=== PATIENT | female | born 1990 ===

== ENCOUNTER 2020-12-18 16:09 | Emergency (ER) | payer OTHER, SELFPAY ==
--- NOTE | ~2020-12-18 | CT_ITS ---
EXAMINATION: CT ABDOMEN AND PELVIS WITH CONTRAST CLINICAL INFORMATION: Low back pain. Fever. COMPARISON: CT scan pelvis September 11, 2018 TECHNIQUE: Multidetector volumetric images were obtained from the superior aspect of the liver through the pubic symphysis following administration of 100 mL of Omnipaque 350 intravenous contrast. Sagittal and coronal reformatted images were obtained on the technologist's workstation. Oral contrast: No This CT examination was performed using dose optimization techniques as appropriate, variously including the following: *Automated exposure control *Adjustment of mA and/or kV according to patient size (this includes techniques or standardized protocols for targeted exams where dose is matched to indication/reason for exam; i.e. extremities or head) *Use of iterative reconstruction technique DLP: 893 mGy-cm FINDINGS: LUNG BASES: The visualized lung bases are unremarkable. LIVER, GALLBLADDER, AND BILIARY TREE: The liver is normal in size, shape, and attenuation. No focal hepatic lesion or biliary ductal dilatation is present. Status post cholecystectomy. PANCREAS: Unremarkable. SPLEEN: Unremarkable. ADRENAL GLANDS: Unremarkable. KIDNEYS AND URETERS: The kidneys are normal in size, shape, and attenuation. No hydronephrosis, hydroureter, or calculi seen. No perinephric stranding. BLADDER: Unremarkable. GASTROINTESTINAL TRACT: Gastric stimulator device in place. Generator in the subcutaneous tissue of the left side of abdomen. No acute abnormality. No diverticula. There is no bowel wall thickening /edema. There is no bowel obstruction. There is a moderate volume of stool in the colon. The appendix is normal . The small bowel loops are unremarkable. ABDOMINAL WALL: No significant hernia is appreciated. LYMPH NODES: Normal. VASCULAR: Unremarkable. PELVIC VISCERA: Unremarkable. OSSEOUS STRUCTURES: Unremarkable. CT/CT abdomen pelvis w con IMPRESSION: No acute abnormality the abdomen or the pelvis.
--- NOTE | ~2020-12-18 | US_ITS ---
EXAMINATION: US PELVIS CLINICAL INFORMATION: Pelvic pain. Low back pain. COMPARISON: Portions of CT 09/11/18 TECHNIQUE: Ultrasound of the pelvis is performed using both transabdominal and transvaginal transducers along with Doppler. Transvaginal imaging is performed due to inadequate visualization transabdominally. FINDINGS: Uterus: The uterus is anteverted and measures 7.0 x 3.4 x 5.5 cm. The estimated cervical length is 3.4 cm. There is a small cyst. The double wall endometrial thickness is 6 mm. The uterine contour is smooth. There is an approximately 0.9 cm round area of altered echotexture in the posterior uterine body. Statistically this is most likely a small fibroid. No other suspicious myometrial abnormality Adnexa: Both ovaries are visualized. The ovaries are prominent The ovaries were enlarged at the time of previous CT 09/11/18. Right ovary measures 4.1 x 3.4 x 3.6 cm. The estimated right ovarian volume is 26 mL. The right ovary appears prominent with some small anechoic spaces. No large suspicious right ovarian mass some of the follicular cysts are peripherally oriented which can be seen with polycystic ovaries Left ovary measures 3.9 x 3.2 x 2.9 cm. The estimated left ovarian volume is 19 mL. There are some physiologic cysts. No large suspicious focal lesion Color mapping and spectral analysis was performed in each ovary. There is color signal present within each ovary. Arterial and venous waveforms were obtained from each ovary. No free pelvic fluid. US/US pelvic and transvaginal IMPRESSION: Bilateral ovarian prominence. This could be related to polycystic ovaries. No suspicious discrete mass. There is color signal present within each ovary. Arterial and vascular spectra were obtained with Doppler analysis of each ovary.
[2020-12-18 16:24] VITALS: BP 149/87; PULSE 120; RESP 18; TEMP 36.3; O2SAT 99; BMI 40.3
[2020-12-18 18:00] VITALS: TEMP 38.3
--- NOTE | 2020-12-18 18:04 | ED.FEMALEGU ---
HPI - Female Genitourinary General Chief complaint: Urogenital-Female Stated complaint: Pelvic flank pain Time Seen by Provider: 12/18/20 17:49 Source: patient History of Present Illness HPI Narrative: This is a 30-year-old female who complains of pain that began in her lower back this morning and has spread to her pelvis on both sides. The pain has been progressive. She denies any fever. She has had nausea but no vomiting. She has had prior UTIs in her UTIs typically do not have classic UTI symptoms however she does not feel like this is the UTI. She said her urine has been clear. She denies any dysuria or urinary frequency. She has irregular menstrual periods, has been on control pills. She states she previously had been going through fertility treatment but has not in the last 2 months had any hormonal stimulation or IVF or anything else along those lines. She denies any respiratory symptoms such as cough or shortness of breath. She does have history of polycystic ovary syndrome. Related Data Previous Rx's Medication Instructions Recorded ibuprofen 800 mg tablet 800 mg PO Q8H PRN #30 tab 12/18/20 Allergies Allergy/AdvReac Type Severity Reaction Status Date / Time metoclopramide [From REGLAN] Allergy Unknown UNKNOWN Unverified 12/18/19 19:13 Review of Systems Review of Systems: Yes all other systems are reviewed and are negative Constitutional: Constitutional: Reports as per HPI and Denies fever(s) Eyes: Eyes: Reports as per HPI and Reports no additional eye complaints ENT: Reports system reviewed and no additional complaints, except as documented, Reports as per HPI, Denies nasal congestion, Denies nasal discharge and Denies sore throat Cardiovascular: Cardiovascular: Reports as per HPI, Denies chest pain and Denies dyspnea Respiratory: Respiratory: Reports as per HPI, Denies cough and Denies dyspnea Gastrointestinal: Gastrointestinal: Reports as per HPI, Reports abdominal pain (Pelvic pain), Denies diarrhea and Denies vomiting Genitourinary: Genitourinary: Reports as per HPI, Denies hematuria, Denies urinary frequency and Denies dysuria Musculoskeletal: Musculoskeletal: Reports back pain (Low back) and Denies numbness Integumentary/Breasts: Skin/Breast: Reports as per HPI and Denies rash Neurologic: Reports as per HPI, Denies focal weakness, Denies numbness and Denies Sensory deficit (Neuro) Psychiatric: Psychiatric: Reports no additional psychiatric complaints and Reports as per HPI Endocrine: Endocrine: Reports no additional endocrine complaints and Reports as per HPI Hematologic/Lymphatic: Hematologic/Lymphatic: Reports no additional hematologic/lymphatic complaints, Reports as per HPI and Reports other (No peripheral edema) [facility] Social History Social History Advance Directives: No Advance Directives Information Provided: No Physical Exam Vital Signs: Vital Signs: Last Vital Signs Temp 99.7 F 12/18/20 23:48 Pulse 117 H 12/18/20 23:50 Resp 16 12/18/20 23:50 BP 117/78 12/18/20 23:50 Pulse Ox 96 12/18/20 22:07 Body Mass Index 40.3 Patient somewhat anxious appearing, appears to be uncomfortable Const: General: cooperative, no acute distress and alert Orientation/consciousness: patient oriented x3 HENMT: Head: Yes normal to inspection Eyes: General: appearance normal, both eyes and all related structures Eyelids: Yes eyelids normal Conjunctivae: conjunctivae normal Pupils: Equal, round and reactive pupils present Neck: Neck: Yes normal visual inspection and Yes supple Chest: Chest palpation & inspection: normal inspection of the chest Resp: Effort & Inspection: normal respiratory effort Auscultation: clear to auscultation bilaterally Cardio: Rate: tachycardic Rhythm: regular rhythm Heart sounds: S1 normal heart sound present, S2 normal heart sound present, no gallops, no murmurs and no rubs GI: Other: Moderately obese, with significant overhanging pannus, no palpable enlarged uterus, bilateral pelvic tenderness present. Palpation (GI): Soft to palpation, nontender and Other GI palpation findings present (Non-distended) Auscultation: normal bowel sounds : General: Yes CVA tenderness (Bilateral. Tenderness seems possibly exaggerated) Back/Spine/Pelvis: Back: CVA tenderness (Bilateral. Tenderness seems possibly exaggerated) Skin: General skin exam: no rashes or lesions noted Neuro: General: patient oriented x3, no focal motor deficits and CN's II-XI intact bilaterally Cranial nerves: Yes Equal, round and reactive pupils present Cognition (Neuro): normal cognition Motor exam (neuro): 5/5 motor strength present throughout Sensory Exam: No Sensory deficit (Neuro) Extrem: General: Yes normal to inspection and Yes no pedal edema Psych: Appearance: grossly normal Affect: normal affect MDM - Female Genitourinary MDM Narrative Medical decision making narrative: Patient presented with severe lower back pain bilaterally radiating around to her front, but starting in the back. Patient did have a fever to 101 here. Patient had history of UTI however her urinalysis showed only trace leukocyte Estrace and otherwise no evidence of UTI. Urine culture was sent. Patient's white blood cell count was normal. Ultrasound of the pelvis showed no acute pathology such as ruptured ovarian cyst or ovarian torsion. Because the patient's level of pain or fever CT of the abdomen pelvis was done with IV contrast and this was also negative for any concerning acute pathology. Patient had no upper abdominal tenderness. COVID was negative. Is unclear what the source of this patient's fever is, however she appears safe for outpatient follow-up Lab Data Attestation: I reviewed the patient's lab results. Result diagrams: 12/18/20 18:10 12/18/20 18:10 Labs: Lab Results 12/18/20 12/18/20 12/18/20 Range/Units 18:10 18:10 18:10 WBC 9.8 (4.8-10.8) X10*3/uL RBC 5.27 (4.20-5.50) X10*6/uL Hgb 14.9 (12.0-16.0) g/dl Hct 42.9 (37-47) % MCV 81.4 (80-98) fL MCH 28.3 (27.0-33.0) pg MCHC 34.7 (31.0-35.0) g/dl RDW 12.9 (11.0-16.0) % Plt Count 363 (160-400) X10*3/uL MPV 8.4 L (9.4-12.3) fL Immature Gran % (Auto) 0.8 H (0.0-0.4) % Neut % (Auto) 81.0 H (45-73) % Lymph % (Auto) 10.2 L (20-40) % [place] % (Auto) 6.0 (2-11) % Eos % (Auto) 1.6 (0-4) % Baso % (Auto) 0.4 (0-2) % Lymph # (Auto) 1.0 L (1.2-4.9) X10*3/uL [place] # (Auto) 0.6 (0.1-1.2) X10*3/uL Eos # (Auto) 0.2 (0.0-0.4) X10*3/uL Baso # (Auto) 0.0 (0.0-0.2) X10*3/uL Abs Immat Gran (auto) 0.08 H (0.00-0.03) X10*3/uL Absolute Neuts (auto) 7.9 (2.0-8.3) X10*3/uL Absolute Nucleated RBC 0.000 (0.0-0.012) X10*3/uL Nucleated RBC % (auto) 0.0 (0.0-0.2) /100WBC Sodium 137 (135-145) mmol/L Potassium 4.0 (3.3-5.1) mmol/L Chloride 104 (96-108) mmol/L Carbon Dioxide 23 (22-29) mmol/L Anion Gap 14 (12-20) BUN 9 (9-16) mg/dL Creatinine 0.83 (0.5-1.4) mg/dL Estim Creat Clear Calc 115.9 Estimated GFR > 60 Random Glucose 78 (60-115) mg/dL Calcium 9.6 (8.4-10.2) mg/dL Total Bilirubin 0.3 (0.0-1.0) mg/dL AST 26 (5-31) U/L ALT 30 (0-31) U/L Alkaline Phosphatase 95 (39-117) U/L Total Protein 8.3 H (6.5-8.0) g/dL Albumin 4.8 (3.5-5.0) g/dL Beta HCG, Quant < 2 mIU/mL Urine Color YELLOW Urine Appearance CLEAR Urine pH 7.0 (5.0-8.0) Ur Specific [place] 1.010 (1.005-1.025) Urine Protein NEG (NEG-TRACE) MG/DL Urine Glucose (UA) NEG (NEG) MG/DL Urine Ketones NEG (NEG) MG/DL Urine Blood NEG (NEG) Urine Nitrite NEG (NEG) Ur Leukocyte Esterase TRACE H (NEG) Urine RBC 1-4 (0) /HPF Urine WBC 1-4 (0-4) /HPF Ur Squamous Epith Cells 1+ /LPF Urine Bacteria TRACE /LPF COVID-19 (BELEM) (Negative) COVID-19 Clin Com 12/18/20 Range/Units 22:05 WBC (4.8-10.8) X10*3/uL RBC (4.20-5.50) X10*6/uL Hgb (12.0-16.0) g/dl Hct (37-47) % MCV (80-98) fL MCH (27.0-33.0) pg MCHC (31.0-35.0) g/dl RDW (11.0-16.0) % Plt Count (160-400) X10*3/uL MPV (9.4-12.3) fL Immature Gran % (Auto) (0.0-0.4) % Neut % (Auto) (45-73) % Lymph % (Auto) (20-40) % [place] % (Auto) (2-11) % Eos % (Auto) (0-4) % Baso % (Auto) (0-2) % Lymph # (Auto) (1.2-4.9) X10*3/uL [place] # (Auto) (0.1-1.2) X10*3/uL Eos # (Auto) (0.0-0.4) X10*3/uL Baso # (Auto) (0.0-0.2) X10*3/uL Abs Immat Gran (auto) (0.00-0.03) X10*3/uL Absolute Neuts (auto) (2.0-8.3) X10*3/uL Absolute Nucleated RBC (0.0-0.012) X10*3/uL Nucleated RBC % (auto) (0.0-0.2) /100WBC Sodium (135-145) mmol/L Potassium (3.3-5.1) mmol/L Chloride (96-108) mmol/L Carbon Dioxide (22-29) mmol/L Anion Gap (12-20) BUN (9-16) mg/dL Creatinine (0.5-1.4) mg/dL Estim Creat Clear Calc Estimated GFR Random Glucose (60-115) mg/dL Calcium (8.4-10.2) mg/dL Total Bilirubin (0.0-1.0) mg/dL AST (5-31) U/L ALT (0-31) U/L Alkaline Phosphatase (39-117) U/L Total Protein (6.5-8.0) g/dL Albumin (3.5-5.0) g/dL Beta HCG, Quant mIU/mL Urine Color Urine Appearance Urine pH (5.0-8.0) Ur Specific [place] (1.005-1.025) Urine Protein (NEG-TRACE) MG/DL Urine Glucose (UA) (NEG) MG/DL Urine Ketones (NEG) MG/DL Urine Blood (NEG) Urine Nitrite (NEG) Ur Leukocyte Esterase (NEG) Urine RBC (0) /HPF Urine WBC (0-4) /HPF Ur Squamous Epith Cells /LPF Urine Bacteria /LPF COVID-19 (BELEM) Negative (Negative) COVID-19 Clin Com See Note Imaging Data Ultrasound pelvis: Radiologist's impression: MPRESSION: Bilateral ovarian prominence. This could be related to polycystic ovaries. No suspicious discrete mass. ? There is color signal present within each ovary. ? Arterial and vascular spectra were obtained with Doppler analysis of each ovary. CT of the abdomen pelvis: Radiologist's impression: No acute pathology Discharge Plan Discharge Clinical Impression: Fever, Low back pain Patient Disposition: Home, Self-Care Instructions: Fever in Adults (ED), Acute Low Back Pain (ED) Additional Instructions: Drink plenty of fluids. Use acetaminophen 650 mg every 4-6 hours as needed for fever. You can also use ibuprofen as prescribed for pain and fever. Follow up with primary care physician. Return for any new or worsened symptoms such as recurrent fever, vomiting, progressive abdominal pain. Will notify you if your urine culture is positive Prescriptions: New ibuprofen 800 mg tablet 800 mg PO Q8H PRN (Reason: pain) Qty: 30 RF: 0 Interventions: ED Discharge Assessment Last Done: 12/19/20 00:22 Discharge Date/Time: 12/19/20 00:23
[2020-12-18 18:16] LABS: MANUAL DIFF FLAG NO
[2020-12-18] MEDS: Morphine Sulfate 4 MG/ML CARTRIDGE IVPUSH (18:17)
[2020-12-18 18:18] LABS: Basophils Percent Auto 0.4 % (0-2); Eosinophils Absolute Auto 0.2 X10*3/uL (0.0-0.4); Eosinophils Percent Auto 1.6 % (0-4); Hematocrit 42.9 % (37-47); Hemoglobin 14.9 g/dl (12.0-16.0); Imm Gran Abs Auto 0.08 X10*3/uL (0.00-0.03); Imm Gran Pct Auto 0.8 % (0.0-0.4); Lymphocytes Percent Auto 10.2 % (20-40); Mean Corpuscular HGB Conc 34.7 g/dl (31.0-35.0); Mean Corpuscular Hemoglobin 28.3 pg (27.0-33.0); Mean Corpuscular Volume 81.4 fL (80-98); Mean Platelet Volume 8.4 fL (9.4-12.3); Monocytes Absolute Auto 0.6 X10*3/uL (0.1-1.2); Neutrophils Absolute Auto 7.9 X10*3/uL (2.0-8.3); Platelet Count 363 X10*3/uL (160-400); Red Blood Count 5.27 X10*6/uL (4.20-5.50); Red Cell Distribution Width 12.9 % (11.0-16.0); White Blood Count 9.8 X10*3/uL (4.8-10.8)
[2020-12-18] MEDS: ondansetron HCL 4 MG/2 ML VIAL IVPUSH (18:18)
[2020-12-18 18:19] LABS: Appearance Urine CLEAR; Color Urine YELLOW; Glucose Urine UA NEG (NEG); Leukocyte Esterase Urine TRACE (NEG); Nitrite Urine NEG (NEG); UACC Culture Trigger YES; Urine Blood NEG (NEG); Urine Ketones NEG (NEG); Urine Protein NEG (NEG-TRACE)
[2020-12-18 18:28] LABS: Bacteria Urine TRACE /LPF; Squamous Epithelial Cell Urine 1+ /LPF
[2020-12-18 18:34] LABS: Alanine Aminotransferase 30 U/L (0-31); Albumin Level 4.8 g/dL (3.5-5.0); Alkaline Phosphatase 95 U/L (39-117); Anion Gap 14 (12-20); Aspartate Amino Transferase 26 U/L (5-31); Bilirubin Total 0.3 mg/dL (0.0-1.0); Blood Urea Nitrogen 9 mg/dL (9-16); Calcium 9.6 mg/dL (8.4-10.2); Carbon Dioxide 23 mmol/L (22-29); Chloride 104 mmol/L (96-108); Creatinine Clr Calc Pharmacy 115.9; Estimated Glomerular Filt Rate > 60; Glucose Random 78 mg/dL (60-115); Sodium 137 mmol/L (135-145); Total Protein 8.3 g/dL (6.5-8.0)
[2020-12-18 18:40] LABS: HCG Quantitative < 2 mIU/mL
[2020-12-18] MEDS: Acetaminophen 325 MG TABLET 650 MG PO (20:25)
[2020-12-18 22:07] VITALS: BP 102/58; PULSE 121; RESP 18; TEMP 37.9; O2SAT 96
[2020-12-18 22:23] LABS: COVID-19 Test Negative (Negative)
[2020-12-18] MEDS: iohexoL 350 MG/ML 100 ML INFUS..BTL IV (22:49)
[2020-12-18 23:48] VITALS: BP 117/78; PULSE 117; RESP 16; TEMP 37.6
[2020-12-18 23:50] VITALS: BP 117/78; PULSE 117; RESP 16
[2020-12-18] MEDS: Ketorolac Tromethamine 15 MG/ML VIAL 30 MG IVPUSH (23:58)
== END 2020-12-19 00:23 | disposition home or self-care (01) ==
PROVIDERS: Emergency Provider Emergency Medicine; PCP Internal Medicine
DX: R50.9 Fever, unspecified (principal); M54.2 Cervicalgia; R10.9 Unspecified abdominal pain; Z20.822 Contact with and (suspected) exposure to COVID-19; Z79.899 Other long term (current) drug therapy
CPT/HCPCS: 36415; 74177; 76830; 76856; 80053; 81001; 84702; 85025; 87086; 87635; 96374; 96375; 99284; J1885; J2270; J2405; Q9967

== ENCOUNTER → 2024-01-31 09:18 | Outpatient (BNVA) | payer BC, SELFPAY | PROVIDERS: PCP Internal Medicine; Visit Provider Physician Assistant Surgical ==

== ENCOUNTER 2024-02-15 07:58 | Outpatient (AMB) | payer BC, SELFPAY ==
--- NOTE | 2024-02-15 10:14 | A.OFFVIS_ITS ---
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 Allergies metoclopramide [From REGLAN] Allergy (Unknown, Verified 02/15/24 10:14) UNKNOWN Medication List - Last Reconciled 02/15/24 by Trent Muñoz MD albuterol sulfate 90 mcg/actuation 2 puffs inhalation Q6H PRN cholecalciferol (vitamin D3) 50 mcg PO DAILY dexlansoprazole mg PO famotidine 40 mg PO BID fluticasone propion-salmeterol 500-50 mcg/dose (Advair Diskus) 1 inh inhalation Q12H metformin mg PO norethindrone acetate mg PO ondansetron HCl 4 mg PO Q8H PRN HPI 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: Details: Start time: 10.00am, End time: 10.50am ?I spent 45 minutes speaking with the patient on the phone plus an additional 5 minutes reviewing and updating records for a total of 50 minutes HPI Comments Details: Previous weight loss efforts: Viky Eason body diet, 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 Wakes up: 7am, Sleeps: 10pm Breakfast: 8am (bagel, shake) Lunch: 12pm (vegetable, rice, potatoes, meat) Dinner: 7pm (same as lunch) Snacks: rarely at 10am (cheese and crackers, or granola bar) Exercise: has home treadmill Fluids: Cofee: 1 cup/day (creamer), tea: rarely, soda: rare, juice: none, ETOH: none PFSH Medical History (Updated 02/15/24 @ 10:21 by Trent Muñoz MD) Asthma PCOS (polycystic ovarian syndrome) GERD (gastroesophageal reflux disease) Nondiabetic gastroparesis Morbid obesity Gastric neurostimulator device in situ Surgical History (Updated 01/31/24 @ 14:02 by Meredith Meléndez CMA) Hx of cervical polypectomy Hx laparoscopic cholecystectomy History of esophagogastroduodenoscopy (EGD) Hx of colonoscopy Family History (Updated 01/31/24 @ 09:43 by Meredith Meléndez CMA) Mother Arthritis Father Hypertension Son Autism Reactive airway disease Social History (Updated 01/31/24 @ 09:49 by Meredith Meléndez CMA) Alcohol intake: current Alcohol intake frequency: holidays/special occasions only Patient Tobacco Use Status: Never used Tobacco Telehealth Telehealth Telehealth Platform: Telephone Location of provider rendering services: practice address Location of patient: address on file Patient Identification confirmed using: Name, : Yes Telehealth method: voice only Patient verbally consented to treatment: Yes Patient verbally consented to billing insurance company: Yes Patient informed of any privacy concerns related to visit: Yes Minutes spent on Phone/Video with Pt.: 50 Assessment & Plan Assessment & Plan (1) Morbid obesity: Code(s): E66.01 - Morbid (severe) obesity due to excess calories Category: Medical Plan: 1.? Plan for lap sleeve gastrectomy. If diaphragmatic or ventral hernias are present at time of surgery, these will be repaired laparoscopically as well. Risks and complications include possible conversion to an open procedure, anastomotic leak, bleeding requiring transfusion, small bowel obstruction, , DVT and pulmonary embolism, cardiac, or pulmonary complications, as skilled nursing complications such as anastomotic ulcer, insufficient weight loss and vitamin deficiencies. I emphasized the importance of close follow-up, adherence to instructions and good communication. 2. You will receive a link of our software ismael to generate an individualized nutritional and exercise plan specific for you. Please send me a screenshot of the plans you will generate Meal to include lean meat (beef, fish, pork, turkey, chicken), or romansh yogurt, or egg whites, or beans with a salad with olive oil and fruits (berries, pears, apples, kiwi). Avoid salt, breads, potatoes, rice, pasta, desserts. ?3. If you choose shakes, each shake would be drunk slowly, like coffee in a period of 2 hours. ?4. If you choose bars, cut each bar in 4 pieces and eat each piece in 30min ?to make each bar last 2 hours. ?5. I emphasized the importance of measuring accurately the food portion and measure it when serving the food in plate ?6. The meal portions include a specific number of forks of meat and salad. You always eat the meat portion but you can replace up to half of salad/vegetables portion with rice, potatoes or pasta, or a fruit ?if you like. The less you do it the better weight loss will be. ?7. One full-size fork is what it can be scooped on the fork without falling aside and not what can be bit with the fork. Use regular forks like those you find in a typical restaurant. ?8.? Please send me weight measurements as soon as possible and then once a week. Always include your diet and exercise plan. 9. The best choice would be to purchase a stationary bike, elliptical or treadmill at home that can track calories. Let me know if you do so I can give you an exercise plan. ?10.?It is important of avoiding and for at least 18 months postoperatively and has been discussed at the infosession. ?11. Goal is to lose at least 1.5-2lbs per week ?12. Goal to lose 10% of your weight before surgery, which is about 28lbs. Ultimate weight goal: 25lbs before surgery 13. Please follow the diet plan exactly without any change. If you don't like something about the plan or you feel hungry you need to communicate with me so I can help you revise the plan. You should not change the plan yourself. 14. To be scheduled for EGD due to history of GERD. The possibility of biopsies was discussed. Patient needs to avoid use of NSAIDs and aspirin for 1 week prior to EGD. Risks of perforation and bleeding was discussed with the patient. This will be an outpatient procedure with IV sedation. Orders: Orders Lipid Panel Today E28.2 - Polycystic ovarian syndrome, E66.01 - Morbid (severe) obesity due to excess calories, J45.909 - Unspecified asthma, uncomplicated, K21.9 - Gastro-esophageal reflux disease without esophagitis, K31.84 - Gastroparesis IRON PROFILE Today E28.2 - Polycystic ovarian syndrome, E66.01 - Morbid (severe) obesity due to excess calories, J45.909 - Unspecified asthma, uncomplicated, K21.9 - Gastro-esophageal reflux disease without esophagitis, K31.84 - Gastroparesis Zinc Today E28.2 - Polycystic ovarian syndrome, E66.01 - Morbid (severe) obesity due to excess calories, J45.909 - Unspecified asthma, uncomplicated, K21.9 - Gastro-esophageal reflux disease without esophagitis, K31.84 - Gastroparesis C Reactive Protein Today E28.2 - Polycystic ovarian syndrome, E66.01 - Morbid (severe) obesity due to excess calories, J45.909 - Unspecified asthma, uncomplicated, K21.9 - Gastro-esophageal reflux disease without esophagitis, K31.84 - Gastroparesis Vitamin A Today E28.2 - Polycystic ovarian syndrome, E66.01 - Morbid (severe) obesity due to excess calories, J45.909 - Unspecified asthma, uncomplicated, K21.9 - Gastro-esophageal reflux disease without esophagitis, K31.84 - Gastroparesis TSH reflex Free T4 Today E28.2 - Polycystic ovarian syndrome, E66.01 - Morbid (severe) obesity due to excess calories, J45.909 - Unspecified asthma, uncomplicated, K21.9 - Gastro-esophageal reflux disease without esophagitis, K31.84 - Gastroparesis Vitamin D 25-OH Total Today E28.2 - Polycystic ovarian syndrome, E66.01 - Morbid (severe) obesity due to excess calories, J45.909 - Unspecified asthma, uncomplicated, K21.9 - Gastro-esophageal reflux disease without esophagitis, K31.84 - Gastroparesis Insulin Today E28.2 - Polycystic ovarian syndrome, E66.01 - Morbid (severe) obesity due to excess calories, J45.909 - Unspecified asthma, uncomplicated, K21.9 - Gastro-esophageal reflux disease without esophagitis, K31.84 - Laura roparesis Hemoglobin A1c Today E28.2 - Polycystic ovarian syndrome, E66.01 - Morbid (severe) obesity due to excess calories, J45.909 - Unspecified asthma, uncomplicated, K21.9 - Gastro-esophageal reflux disease without esophagitis, K31.84 - Gastroparesis H Pylori Breath Test Today E28.2 - Polycystic ovarian syndrome, E66.01 - Morbid (severe) obesity due to excess calories, J45.909 - Unspecified asthma, uncomplicated, K21.9 - Gastro-esophageal reflux disease without esophagitis, K31.84 - Gastroparesis Complete Blood Count Auto Diff Today E28.2 - Polycystic ovarian syndrome, E66.01 - Morbid (severe) obesity due to excess calories, J45.909 - Unspecified asthma, uncomplicated, K21.9 - Gastro-esophageal reflux disease without esophagitis, K31.84 - Gastroparesis Comprehensive Met. Panel Today E28.2 - Polycystic ovarian syndrome, E66.01 - Morbid (severe) obesity due to excess calories, J45.909 - Unspecified asthma, uncomplicated, K21.9 - Gastro-esophageal reflux disease without esophagitis, K31.84 - Gastroparesis Vitamin B12 and Folate Today E28.2 - Polycystic ovarian syndrome, E66.01 - Morbid (severe) obesity due to excess calories, J45.909 - Unspecified asthma, uncomplicated, K21.9 - Gastro-esophageal reflux disease without esophagitis, K31.84 - Gastroparesis Vitamin B1 Today E28.2 - Polycystic ovarian syndrome, E66.01 - Morbid (severe) obesity due to excess calories, J45.909 - Unspecified asthma, uncomplicated, K21.9 - Gastro-esophageal reflux disease without esophagitis, K31.84 - Gastroparesis Ferritin Today E28.2 - Polycystic ovarian syndrome, E66.01 - Morbid (severe) obesity due to excess calories, J45.909 - Unspecified asthma, uncomplicated, K21.9 - Gastro-esophageal reflux disease without esophagitis, K31.84 - Gastroparesis US abdomen comp w elastography Today E28.2 - Polycystic ovarian syndrome, E66.01 - Morbid (severe) obesity due to excess calories, J45.909 - Unspecified asthma, uncomplicated, K21.9 - Gastro-esophageal reflux disease without esop hagitis, K31.84 - Gastroparesis XR chest 2V Today E28.2 - Polycystic ovarian syndrome, E66.01 - Morbid (severe) obesity due to excess calories, J45.909 - Unspecified asthma, uncomplicated, K21.9 - Gastro-esophageal reflux disease without esophagitis, K31.84 - Gastroparesis ECG 12 lead EKG Today E28.2 - Polycystic ovarian syndrome, E66.01 - Morbid (severe) obesity due to excess calories, J45.909 - Unspecified asthma, uncomplicated, K21.9 - Gastro-esophageal reflux disease without esophagitis, K31.84 - Gastroparesis FL upper GI w air Today E28.2 - Polycystic ovarian syndrome, E66.01 - Morbid (severe) obesity due to excess calories, J45.909 - Unspecified asthma, uncomplicated, K21.9 - Gastro-esophageal reflux disease without esophagitis, K31.84 - Gastroparesis Referrals Nutrition/Dietitian Referral E28.2 - Polycystic ovarian syndrome, E66.01 - Morbid (severe) obesity due to excess calories, J45.909 - Unspecified asthma, uncomplicated, K21.9 - Gastro-esophageal reflux disease without esophagitis, K31.84 - Gastroparesis Behavioral Health Referral E28.2 - Polycystic ovarian syndrome, E66.01 - Morbid (severe) obesity due to excess calories, J45.909 - Unspecified asthma, uncomplicated, K21.9 - Gastro-esophageal reflux disease without esophagitis, K31.84 - Gastroparesis
[2024-02-15 10:25] VITALS: BMI 42.6
--- OUTSIDE RECORDS SUMMARY | 2024-02-22 11:38 | XMS_ITS | Continuity of Care Document ---
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 Name Role Phone Nanci Melendez MD Primary Care Physician Encounter [facility] Date(s): 02/23/20 - 03/24/20 [facility] [address] [place] [id number] Allergies, Adverse Reactions, Alerts Substance Reaction Severity Status Reglan EYE TWITCHING Active Immunizations Given and Recorded Vaccine Date Status Refusal Reason Influenza Virus Vaccine (oldterm) 01/01/20 Recorde d tetanus/diphtheria/pertussis, acel(Tdap) 1 06/05/18 Given tetanus/diphtheria/pertussis, acel(Tdap) 07/10/07 Recorded pneumococcal 23-valent vaccine 2 06/05/18 Given influenza virus vaccine, inactivated 3 04/06/16 Gi tad influenza virus vaccine, inactivated 12/09/14 Gio rded influenza virus vaccine, inactivated 02/12/13 Gio rded influenza virus vaccine, inactivated 01/05/12 Gio rded hepatitis B adult vaccine 01/31/12 Recorded hepatitis B adult vaccine 09/06/11 Recorded hepatitis B adult vaccine 07/31/11 Recorded hepatitis B adult vaccine 01/08/11 Recorded Miscellaneous Vaccine 4 09/01/09 Recorded tetanus-diphtheria toxoids (Td) 07/10/07 Recorded Meningococcal Conjugate Vaccine 03/16/06 Recorded Measles/Mumps/Rubella Virus Vaccine 08/08/99 Recor ded Measles/Mumps/Rubella Virus Vaccine 11/21/89 Recor ded 1Result Comment: [facility]# [id number] PT. TOLERATED INJ. WITHOUT COMPLICATIONS....CO 2Result Comment: [facility] [place]# [id number] PT. TOLERATED INJ. WITHOUT COMPLICATIONS...CO 3Result Comment: [04/06/2016] pt. tolerated inj. without complications...CO 4Result Comment: [04/14/2015] Measles mumps rubella titer Medications Advair Diskus 500 mcg-50 mcg inhalation powder 1, puffs, Inhalation, 2 times a day, # 1 each, Refills 12, Tot. Refills 12, Maintenance, 12/24/19 13:40:00 EDT, Route to Pharmacy Electronically, [id number], [facility], 161, cm, 06/12/19 8:56:00 EDT, Height, 106,... Start Date: 12/24/19 Status: Ordered albuterol 0.083% inhalation solution 3 mL = 2.5 mg, Inhalation, Every 6 hours, PRN for wheezing, # 60 each, 11 Refills, Maintenance, 12/24/19 13:40:00 EDT, Solution, [facility], 161, cm, 06/12/19 8:56:00 EDT, Height, 106, kg,09/11/18 13:37:00 EDT, Dry Weight Start Date: 12/24/19 Status: Ordered albuterol-ipratropium 3 mg-0.5 mg/3 ml inhalation solution 3 mL, Neb, 4 times a day, PRN shortness of breath, # 180 mL, 3 Refills, Maintenance, 01/20/19 11:59:31 EDT, Solution, 3 mL Neb 4 times a day,PRN:shortness of breath Start Date: 01/20/19 Status: Ordered Benadryl 25 mg oral capsule See Instructions, 2 capsule By Mouth PRN, 0 Refills, Maintenance, 07/24/18 11:01:32 EDT Start Date: 07/24/18 Status: Ordered Dexilant 60 mg oral delayed release capsule 1 capsule = 60 mg, By Mouth, Daily, # 90 capsule, 3 Refills, Maintenance, 12/24/19 13:41:00 EDT, ECCapsule, [facility], 161, cm, 06/12/19 8:56:00 EDT, Height, 106, kg, 09/11/18 13:37:00 EDT, Dry Weight Start Date: 12/24/19 Status: Ordered diclofenac sodium 75 mg oral delayed release tablet 1 tablet = 75 mg, By Mouth, 2 times a day, PRN for pain, TAKE WITH FOOD, # 28 tablet, 1 Refills, Maintenance, 12/16/19 9:22:00 EDT, Tablet, [facility], 161, cm, 06/12/19 8:56:00 EDT, Height, 106, kg, 09/11/18 13:37:00 EDT, Dry Weight Start Date: 12/16/19 Stop Date: 01/13/20 Status: Ordered Flonase 1 sprays, Daily, 0 Refills, Maintenance, 04/10/16 10:01:51 Start Date: 04/10/16 Status: Ordered letrozole 2.5 mg oral tablet 2 tablets, By Mouth, Daily, Start taking on Day 3 of Cycle, # 10 tablet, 3 Refills, Maintenance, 07/24/18 11:51:09 EDT Start Date: 07/24/18 Stop Date: 08/13/18 Status: Ordered letrozole 2.5 mg oral tablet 3 tablet = 7.5 mg, By Mouth, Daily, 3 tabs by mouth days 3-7, # 15 tablet, 3 Refills, Maintenance, 02/09/20 17:27:00 EST, [facility], 161, cm, 06/12/19 8:56:00 EDT, Height, 106, kg, 09/11/18 13:37:00 EDT, Dry Weight Start Date: 02/09/20 Status: Ordered metFORMIN 500 mg oral tablet, extended release See Instructions, take 1 tablet po w/dinner x1 wk, then increase to 2 tablets x 1-2 wks, then increase to 3 tablets 1-2 wks,then 4 tabs with dinner every day., # 120 tablet, 11 Refills, Maintenance, 02/10/20 14:25:00 EST, [facility], 161, c... Start Date: 02/10/20 Status: Ordered Nebulizer/Compressor See Instructions, # 1 units, Maintenance, dx: J45.909 use daily lifetime use, 08/30/18 17:26:09 EDT, Compound Start Date: 08/30/18 Status: Ordered Ondansetron 0 Refills, Maintenance, 06/07/18 9:18:12 EST Start Date: 06/07/18 Status: Ordered ondansetron 4 mg oral tablet See Instructions, TAKE 1 TABLET BY MOUTH EVERY 8 HOURS NEEDED FOR NAUSEA AND VOMITING FOR 5 DAYS, # 15 each, 5 Refills, Maintenance, 12/24/19 13:58:00 EDT, [facility], 161, cm, 208:56:00 EDT, Height, 106, kg, 09/11/18 13:37:00 EDT... Start Date: 12/24/19 Status: Ordered Ovidrel 250 mcg/0.5 mL subcutaneous solution See Instructions, Take 2 Subcutaneous Injections Once per cycle when directed, # 2 Doses, 3 Refills, Soft Stop, 07/25/18 15:54:58 EDT, Solution, please give patient sharps container Start Date: 07/25/18 Status: Ordered Ovidrel 250 mcg/0.5 mL subcutaneous solution See Instructions, Take 2 doses subcutaneous injection once per cycle., # 2 each, 3 Refills, Maintenance, 02/09/20 17:32:00 EST, [facility], 161, cm, 06/12/19 8:56:00 EDT, Height, 106, kg,09/11/18 13:37:00 EDT, Dry Weight Start Date: 02/09/20 Status: Ordered Multivitamins By Mouth, Daily, 0 Refills, Maintenance, 06/05/18 11:27:06 EST Start Date: 06/05/18 Status: Ordered ProAir HFA 90 mcg/inh inhalation aerosol with adapter 180 mcg, 2, puffs, Inhalation, 4 times a day, # 1 each, Refills 4, Tot. Refills 4, Maintenance, 12/24/19 13:40:00 EDT, Inhaler, Route to Pharmacy Electronically, [id number],[facility], 161, cm, 06/12/19 8:56:00 ED... Start Date: 12/24/19 Status: Ordered ProAir HFA 90 mcg/inh inhalation aerosol with adapter 2, puffs, Inhalation, 4 times a day, PRN, # 2 each, Refills 5, Tot. Refills 5, Maintenance, 05/19/19 15:55:00 EST, Aerosol, Route to Pharmacy Electronically, [id number], [facility], 161, cm, 01/20/19 11:38:00 EDT,... Start Date: 05/19/19 Status: Ordered simethicone 250 mg oral capsule 1 capsule = 250 mg, By Mouth, Daily, 0 Refills, Maintenance, 06/07/18 9:16:30 EST Start Date: 06/07/18 Status: Ordered Zantac 300 oral tablet 1 tablet = 300 mg, By Mouth, Daily at bedtime, # 90 tablet, 0 Refills, Maintenance, 06/07/18 9:16:44 EST, Tablet Start Date: 06/07/18 Status: Ordered Zofran 8 mg oral tablet See Instructions, 1 tablet By Mouth PRN, 0 Refills, Maintenance, 07/24/18 10:59:04 EDT Start Date: 07/24/18 Status: Ordered Problem List Condition Effective Dates Status Health Status Inform ant Asthma(Confirmed) Active Asthma(Confirmed) Active Biliary dyskinesia(Confirmed) Active GERD (gastroesophageal reflu x disease)(Confirmed) Active Gastroparesis(Confirmed) Active Gastroparesis(Confirmed) Active H/O gastroesophageal reflux (GERD)(Confirmed) Active Pain of right heel(Confirmed) Active Hx laparoscopic cholecystectomy(Confirmed) 06/06/16 Active Obesity (BMI 30-39.9)(Confirmed) Active Moderate obstructive sleep apnea(Confirmed) Active Routine medical exam(Confirmed) Active PCOS (polycystic ovarian syndrome)(Confirmed) Active Urinary retention(Confirmed) Active Sleep apnea(Confirmed) Active Fatty liver(Confirmed) Active Social History Social History Type Response Smoking Status Never smoker; Tobacc o user in household: No entered on: 07/02/15 Sex
--- OUTSIDE RECORDS SUMMARY | 2024-02-22 11:38 | XMS_ITS | Continuity of Care Document ---
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 TOLERATED INJ. WITHOUT COMPLICATIONS....CO 2Result Comment: [facility]# [id number] PT. TOLERATED INJ. WITHOUT COMPLICATIONS...CO 3Result Comment: [04/06/2016] pt. tolerated inj. without complications...CO 4Result Comment: [04/14/2015] Measles mumps rubella titer Medications 22 gauge 1 1/2in needles 22 gauge 1 1/2in needles, See Instructions, # 30 each, Refills 5, Tot. Refills 5, Maintenance, For giving IM progesterone, 02/03/21 11:56:00 EDT, Compound, 163, cm, 01/01/21 10:10:00 EDT, Height Start Date: 02/03/21 Status: Ordered 3cc syringe 18g 1 1/2 inch needle 3cc syringe 18g 1 1/2 inch needle, See Instructions, # 2 each, Refills 5, Tot. Refills 5, Maintenance, For use with drawing and mixing pregnyl for trigger shot, 12/31/20 8:22:00 EDT, Compound, 161, cm, 10/12/20 10:38:00 EDT, Height Start Date: 12/31/20 Status: Ordered 3cc syringe 18g 1 1/2 inch needle 3cc syringe 18g 1 1/2 inch needle, See Instructions, # 30 each, Refills 5, Tot. Refills 5, Maintenance, for drawing up IM progesterone in oil, 02/03/21 11:56:00 EDT, Compound, 163, cm, 01/01/21 10:10:00 EDT, Height Start Date: 02/03/21 Status: Ordered Albuterol (Eqv-ProAir HFA) 90 mcg/inh inhalation aerosol 2 puffs, Inhalation, 4 times a day, PRN NEEDED FOR WHEEZING, # 18 Gm, 10 Refills, Maintenance, 06/07/20 14:34:00 EST, [facility], 50, INHALE 2 PUFFS BY MOUTH 4 TIMES DAILY NEEDED FORWHEEZING, 161, cm, 02/10/20 14:26:00 EST, Height, 1... Start Date: 06/07/20 Status: Ordered albuterol-ipratropium 3 mg-0.5 mg/3 ml inhalation solution 3 mL, Neb, 4 times a day, PRN shortness of breath, # 180 mL, 11 Refills, Maintenance, 06/18/20 9:36:00 EDT, Solution, [facility] 1967, 3 mL Neb 4 times a day,PRN:shortness of breath, 161, cm, 06/18/20 9:18:00 EDT, Height, 106, kg, 09/11/18 13:37... Start Date: 06/18/20 Status: Ordered Apri 0.15 mg-0.03 mg oral tablet 1 tablet, By Mouth, Daily, start first tablet today, # 1 pack/packet, 3 Refills, Maintenance, 12/09/20 13:48:00 EDT, [facility], Partial fill upon patient request if the prescription is for a schedule II opioid drug., 1 tablet By Mouth Kemi... Start Date: 12/09/20 Status: Ordered Benadryl 25 mg oral capsule See Instructions, 2 capsule By Mouth PRN, 0 Refills, Maintenance, 07/24/18 11:01:32 EDT Start Date: 07/24/18 Status: Ordered Dexilant 60 mg oral delayed release capsule 1 capsule = 60 mg, By Mouth, Daily, # 90 capsule, 0 Refills, Maintenance, 02/11/21 12:37:00 EST, ECCapsule, [facility] 1967, 163, cm, 01/01/21 10:10:00 EDT, Height Start Date: 02/11/21 Status: Ordered doxycycline hyclate 100 mg oral tablet 1 tablet = 100 mg, By Mouth, 2 times a day, # 28 tablet, 5 Refills, Maintenance, 12/31/20 8:23:00 EDT, [facility], Partial fill upon patient request if the prescription is for a schedule II opioid drug., 161, cm, 10/12/20 10:38:00 EDT... Start Date: 12/31/20 Status: Ordered famotidine 20 mg oral tablet See Instructions, OTC, Refills 0, Maintenance, 06/18/20 9:38:00 EDT, Instructions Replace Required Details, Partial fill upon patient request if the prescription is for a schedule II opioid drug. Start Date: 06/18/20 Status: Ordered Flonase 1 sprays, Daily, 0 Refills, Maintenance, 04/10/16 10:01:51 Start Date: 04/10/16 Status: Ordered fluticasone-salmeterol 500 mcg-50 mcg inhalation powder 1, Doses, Inhalation, 2 times a day, # 60 each, Refills 5, Route to Pharmacy Electronically, [id number], [facility], 163, cm, 01/01/21 10:10:00 EDT, Height Start Date: 01/28/21 Status: Ordered ganirelix 250 mcg/0.5 ml subcutaneous injection 0.5 mL = 250 mcg, Subcutaneous Injection, Daily, # 5 each, 5 Refills, Acute 02/20/21 8:26:00 EST, 12/31/20 8:23:00 EDT, Solution, [facility], Partial fill upon patient request if theprescription is for a schedule II opioid drug., 161... Start Date: 12/31/20 Stop Date: 02/20/21 Status: Ordered Gonal-F 1050 units subcutaneous injection = 150 International_Units, Subcutaneous Injection, Daily, # 2 kit, 5 Refills, Maintenance, 218:23:00 EDT, [facility], Partial fill upon patient request if the prescription is for a schedule II opioid drug., 150 International_Un... Start Date: 12/31/20 Status: Ordered Leuprolide for trigger Leuprolide for trigger, 40 units, Subcutaneous Injection, Once, # 1 each, Refills 0, Tot. Refills 0, Soft Stop, 12/31/20 8:22:00 EDT, Compound, 161, cm, 10/12/20 10:38:00 EDT, Height Start Date: 12/31/20 Status: Ordered Menopur 75 intl units subcutaneous injection = 75 International_Units, Subcutaneous Injection, Daily, # 10 each, 5 Refills, Acute 02/20/21 8:26:00 EST, 12/31/20 8:22:00 EDT, Powder, [facility], Partial fill upon patient requestif the prescription is for a schedule II opioid adenike... Start Date: 12/31/20 Stop Date: 02/20/21 Status: Ordered metFORMIN 500 mg oral tablet, extended release See Instructions, take 1 tablet po w/dinner x1 wk, then increase to 2 tablets x 1-2 wks, then increase to 3 tablets 1-2 wks,then 4 tabs with dinner every day., # 120 tablet, 11 Refills, Maintenance, 02/10/20 14:25:00 EST, [facility] 1967, 161, c... 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 Start Date: 06/18/20 Status: Ordered oxyCODONE 5 mg oral tablet 5 mg, 1, tablet, By Mouth, Every 6 hours, PRN, # 8 tablet, Refills 0, Tot. Refills 0, Maintenance, Pain , Mild, 01/18/21 9:22:00 EDT, Route to Pharmacy Electronically, [facility] 1967, Partial fill upon patient request if the prescription is for... Start Date: 01/18/21 Status: Ordered Pregnyl 03551 u injectable powder for injection = 1,000 units, Intramuscular, Once, For use as trigger shot. Use 3 mL of diluent to reconstitute powder. Draw and administer 0.3 mL of reconsituted pregnyl for total dose of 1000 units., # 1 kit, 5 Refills, Soft Stop, 12/31/20 8:24:00 EDT, [facility]... Start Date: 12/31/20 Status: Ordered Multivitamins By Mouth, Daily, 0 Refills, Maintenance, 06/05/18 11:27:06 EST Start Date: 06/05/18 Status: Ordered progesterone 50 mg/mL intramuscular solution 50mg/ml 1 ml (sesame oil), Intramuscular, Daily, # 30 mL, 5 Refills, Maintenance, 02/03/21 11:55:00EDT, [facility], Partial fill upon patient request if the prescription is for a schedule II opioid drug., 163, cm, 01/01/21 10:10:00 E... Start Date: 02/03/21 Status: Ordered Prometrium 200 mg oral capsule See Instructions, vaginally 3 times a day, # 90 tablet, 5 Refills, Maintenance, 12/31/20 8:22:00 EDT, [facility], Partial fill upon patient request if the prescription is for a schedule II opioid drug., 161, cm, 10/12/20 10:38:00 EDT,... Start Date: 12/31/20 Status: Ordered simethicone 250 mg oral capsule 1 capsule = 250 mg, By Mouth, Daily, 0 Refills, Maintenance, 06/07/18 9:16:30 EST Start Date: 06/07/18 Status: Ordered Valium 5 mg oral tablet 5 mg, 1, tablet, By Mouth, Once, once as directed by MD office, may to repeat x1, # 2 tablet, Refills 0, Tot. Refills 0, Soft Stop, 01/18/21 9:22:00 EDT, Route to Pharmacy Electronically, [facility], Partial fill upon patient request if the... Start Date: 01/18/21 Status: Ordered Vitamin D3 1000 intl units oral tablet 1 tablet = 1,000 International_Units, By Mouth, Daily, # 30 tablet, 0 Refills, Maintenance, 06/18/20 9:41:00 EDT, Tablet, Partial fill upon patient request if the prescription is for a schedule II opioid drug. Start Date: 06/18/20 Status: Ordered Vivelle-Dot 0.1 mg/24 hours twice weekly transdermal film, extended release See Instructions, Place 2 patches on below the waistline when instructed by nursing, # 32 patch, 5 Refills, Maintenance, 12/31/20 8:23:00 EDT, [facility], Partial fill upon patient request if the prescription is for a schedule II opio... Start Date: 12/31/20 Status: Ordered yes yes, See Instructions, # 2 each, Refills 5, Tot. Refills 5, Maintenance, Wirt Capped Insulin Syringe for lupron administration, 12/31/20 8:22:00 EDT, Supply, 161, cm, 10/12/20 10:38:00 EDT, Height Start Date: 12/31/20 Status: Ordered yes yes, See Instructions, # 2 each, Refills 0, Tot. Refills 0, Maintenance, 27g 1/2 needle for use with administering pregnyl trigger shot., 12/31/20 8:22:00 EDT, Supply, 161, cm, 10/12/20 10:38:00 EDT, Height Start Date: 12/31/20 Status: Ordered Problem List Condition Effective Dates [...] Active Urinary retention(Confirmed) Active Sleep apnea(Confirmed) Active Sleep apnea(Confirmed) Active Fatty liver(Confirmed) Active Social History Social History Type Response Smoking Status Never smoker; Tobacc o user in household: No entered on: 07/02/15 Sex
--- OUTSIDE RECORDS SUMMARY | 2024-02-22 11:38 | XMS_ITS | Continuity of Care Document ---
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 Name Role Phone Nanci Melendez MD Primary Care Physician [phone] Encounter [facility] Date(s): 11/15/21 - 03/15/[address] [facility] [address] [facility], [address] [place], [place] [address] Attending Physician: Adela Sorto MD Allergies, Adverse Reactions, Alerts Substance Reaction Severity Status Reglan EYE TWITCHING Active Other Environmental Allergy 1 Active 1Seasonal Allergies Immunizations Given and Recorded Vaccine Date Status Refusal Reason tetanus/diphtheria/pertussis, acel(Tdap) 12/06/21 Given tetanus/diphtheria/pertussis, acel(Tdap) 1 06/05/18 Given tetanus/diphtheria/pertussis, acel(Tdap) 07/10/07 Recorded Influenza Virus Vaccine (oldterm) 01/01/20 Recorde d pneumococcal 23-valent vaccine 2 06/05/18 Given influenza [...] Virus Vaccine 11/21/89 Recor ded 1Result Comment: [facility]# [id number] PT. TOLERATED INJ. WITHOUT COMPLICATIONS....CO 2Result Comment: [facility]# [id number] PT. TOLERATED INJ. WITHOUT COMPLICATIONS...CO 3Result Comment: [04/06/2016] pt. tolerated inj. without complications...CO 4Result Comment: [04/14/2015] Measles mumps rubella titer Medications acetaminophen 325 mg oral tablet 650 mg, By Mouth, Every 4 hours, PRN, not to exceed 4000 mg/day, # 60 tablet, Refills 0, Tot. Refills 0, Maintenance, Pain , Mild, 02/08/22 8:05:00 EST, Route to Pharmacy Electronically, [facility] 1966, Partial fill upon patient request if the... Start Date: 02/08/22 Status: Ordered Albuterol (Eqv-ProAir HFA) 90 mcg/inh inhalation aerosol See Instructions, INHALE 2 PUFFS BY MOUTH 4 TIMES DAILY NEEDED FOR WHEEZING, # 9 Gm, 6 Refills, 08/17/21 9:51:00 EDT, [facility] 1967, 25, INHALE 2 PUFFS BY MOUTH 4 TIMES DAILY NEEDED FORWHEEZING, 162, cm, 08/03/21 16:59:00 EDT, Height, 1... Start Date: 08/17/21 Status: Ordered albuterol 0.083% inhalation solution 3 mL = 2.5 mg, Inhalation, Every 6 hours, PRN for wheezing, # 100 each, 5 Refills, Maintenance, 08/17/21 9:51:00 EDT, Solution, [facility] 1966, replaces previous Rx for albuterol-ipatropium solution, 162, cm, 08/03/21 16:59:00 EDT, Height, 110,... Start Date: 08/17/21 Status: Ordered Benadryl 25 mg oral capsule See Instructions, 2 capsule By Mouth PRN, 0 Refills, Maintenance, 07/24/18 11:01:32 EDT Start Date: 07/24/18 Status: Ordered Dexilant 60 mg oral delayed release capsule See Instructions, Take 1 capsule by mouth once daily, # 90 capsule, 0 Refills, 03/14/22 14:26:00 EST, [facility] 1967, 163, cm, 02/27/22 9:06:00 EST, Height, 128.2, kg, 02/05/22 12:22:00 EST, Dry Weight Start Date: 03/14/22 Status: Ordered Diflucan 150 mg oral tablet 1 tablet = 150 mg, By Mouth, Once, # 1 tablet, 0 Refills, Soft Stop, 03/01/22 15:59:00 EST, Tablet,[facility], Partial fill upon patient request if the prescription is for a schedule II opioid drug., 163, cm, 02/27/22 9:06:00 EST, Height,... Start Date: 03/01/22 Status: Ordered famotidine 20 mg oral tablet See Instructions, OTC, Refills 0, Maintenance, 06/18/20 9:38:00 EDT, Instructions Replace Required Details, Partial fill upon patient request if the prescription is for a schedule II opioid drug. Start Date: 06/18/20 Status: Ordered ferrous sulfate 325 mg oral tablet 1 tablet = 325 mg, By Mouth, 2 times a day, # 60 tablet, 11 Refills, Maintenance, 08/18/21 16:40:00EDT, Tablet, [facility] 1966, Partial fill upon patient request if the prescription is for a schedule II opioid drug., 162, cm, 08/18/21 13:09:00... Start Date: 08/18/21 Status: Ordered Flonase 1 sprays, Daily, 0 Refills, Maintenance, 04/10/16 10:01:51 Start Date: 04/10/16 Status: Ordered fluticasone-salmeterol 500 mcg-50 mcg inhalation powder 1, Doses, Inhalation, 2 times a day, # 60 each, Refills 5, Tot. Refills 5, 08/17/21 9:51:00 EDT, Route to Pharmacy Electronically, [id number], [facility] 1967, 162, cm, 08/03/21 16:59:00 EDT, Height, 110, kg, 08/03/21 1... Start Date: 08/17/21 Status: Ordered ibuprofen 800 mg oral tablet 800 mg, 1, tablet, By Mouth, Every 8 hours, PRN, not to exceed 3200 mg/day with food or milk, # 40 tablet, Refills 0, Tot. Refills 0, Maintenance, Pain , Moderate, 02/08/22 8:05:00 EST, Route to Pharmacy Electronically, [facility] 1967, Partial... Start Date: 02/08/22 Status: Ordered CONSULT CONSULT, See Instructions, # 1 each, Refills 0, Tot. Refills 0, Maintenance, CONSULT S/P MASTITIS AND LOW MILK SUPPLY, 03/01/22 16:00:00 EST, Supply Start Date: 03/01/22 Status: Ordered magnesium oxide 250 mg oral tablet 2 tablet = 500 mg, By Mouth, Daily, 0 Refills, Maintenance, 12/19/21 10:26:00 EDT, Partial fill upon patient request if the prescription is for a schedule II opioid drug. Start Date: 12/19/21 Status: Ordered Nebulizer/Compressor See Instructions, # 1 units, Maintenance, dx: J45.909 use daily lifetime use, 08/30/18 17:26:09 EDT, Compound Start Date: 08/30/18 Status: Ordered Multivitamins By Mouth, Daily, 0 Refills, Maintenance, 06/05/18 11:27:06 EST Start Date: 06/05/18 Status: Ordered Vitamin B12 0 Refills, Maintenance, 09/16/21 15:35:00 EDT, Partial fill upon patient request if the prescription is for a schedule II opioid drug. Start Date: 09/16/21 Status: Ordered Vitamin D3 1000 intl units oral tablet 1 tablet = 1,000 International_Units, By Mouth, Daily, # 30 tablet, 0 Refills, Maintenance, 06/18/20 9:41:00 EDT, Tablet, Partial fill upon patient request if the prescription is for a schedule II opioid drug. 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 PCOS (polycystic ovarian syndrome) Confirmed Active Severe obesity Confirmed Active Sleep apnea Confirmed Active Fatty liver Confirmed Active Social History Social History Type Response Smoking Status Never smoker; Tobacc o user in household: No entered on: 07/02/15 Sex Patient Care team information Care Team Personnel Name: Nanci Melendez MD Position: [facility] Primary Care Physician Member Role: PCP Address: Address: [address] [place] [id number]- Care Team Related Persons Name: ERMA SEAN Address: [address] Address: home [address] Name: DERRELL RITCHIE Address: home [address] [place] [address] Name: DERRELL RITCHIE Address: home [address] [facility] [address] [place] [address] Name: DERRELL RITCHIE Address: home [address] [facility] [facility] [address] [place] [address] Name: SHEBA CANO Address: home [address] [place] [id number] Name: DAYANNA CANO Address: home [address] [place] [address]
--- OUTSIDE RECORDS SUMMARY | 2024-02-22 11:38 | XMS_ITS | Continuity of Care Document ---
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 TOLERATED INJ. WITHOUT COMPLICATIONS....CO 2Result Comment: [facility]# [id number] PT. TOLERATED INJ. WITHOUT COMPLICATIONS...CO 3Result Comment: [04/06/2016] pt. tolerated inj. without complications...CO 4Result Comment: [04/14/2015] Measles mumps rubella titer Medications Advair Diskus 500 mcg-50 mcg inhalation powder 1, puffs, Inhalation, 2 times a day, # 1 each, Refills 12, Tot. Refills 12, Maintenance, 12/24/19 13:40:00 EDT, Route to Pharmacy Electronically, [id number], [facility], 161, cm, 06/12/19 8:56:00 EDT, Height, 106,... Start Date: 12/24/19 Status: Ordered albuterol 0.083% inhalation solution 3 mL = 2.5 mg, Inhalation, Every 6 hours, PRN for wheezing, # 60 each, 11 Refills, Maintenance, 12/24/19 13:40:00 EDT, Solution, [facility] 1967, 161, cm, 06/12/19 8:56:00 EDT, [...] 3 Refills, Maintenance, 12/24/19 13:41:00 EDT, ECCapsule, [facility], 161, cm, 06/12/19 8:56:00 EDT, Height, 106, kg, 09/11/18 13:37:00 EDT, Dry Weight Start Date: 12/24/19 Status: Ordered diclofenac sodium 75 mg oral delayed release tablet 1 tablet = 75 mg, By Mouth, 2 times a day, PRN for pain, TAKE WITH FOOD, # 28 tablet, 1 Refills, Maintenance, 12/16/19 9:22:00 EDT, Tablet, [facility] 1967, 161, cm, 06/12/19 8:56:00 EDT, [...] tablet, 3 Refills, Maintenance, 02/09/20 17:27:00 EST, [facility], 161, cm, 06/12/19 8:56:00 EDT, [...] tablet, 11 Refills, Maintenance, 02/10/20 14:25:00 EST, [facility], 161, c... Start Date: 02/10/20 [...] each, 5 Refills, Maintenance, 12/24/19 13:58:00 EDT, [facility], 161, cm, 208:56:00 EDT, Height, [...] 13:40:00 EDT, Inhaler, Route to Pharmacy Electronically, [id number],[facility], 161, cm, 06/12/19 8:56:00 ED... Start Date: 12/24/19 Status: Ordered ProAir HFA 90 mcg/inh inhalation aerosol with adapter 2, puffs, Inhalation, 4 times a day, PRN, # 2 each, Refills 5, Tot. Refills 5, Maintenance, 05/19/19 15:55:00 EST, Aerosol, Route to Pharmacy Electronically, [id number], [facility], 161, cm, 01/20/19 11:38:00 EDT,... [...]
--- OUTSIDE RECORDS SUMMARY | 2024-02-22 11:38 | XMS_ITS | Continuity of Care Document ---
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 TOLERATED INJ. WITHOUT COMPLICATIONS....CO 2Result Comment: [facility]# [id number] PT. TOLERATED INJ. WITHOUT COMPLICATIONS...CO 3Result Comment: [04/06/2016] pt. tolerated inj. without complications...CO 4Result Comment: [04/14/2015] Measles mumps rubella titer Medications Advair Diskus 500 mcg-50 mcg inhalation powder 1, puffs, Inhalation, 2 times a day, # 1 each, Refills 12, Tot. Refills 12, Maintenance, 12/24/19 13:40:00 EDT, Route to Pharmacy Electronically, [id number], [facility] 1967, 161, cm, 06/12/19 8:56:00 EDT, Height, 106,... Start Date: 12/24/19 Status: Ordered albuterol 0.083% inhalation solution 3 mL = 2.5 mg, Inhalation, Every 6 hours, PRN for wheezing, # 60 each, 11 Refills, Maintenance, 12/24/19 13:40:00 EDT, Solution, [facility] 1967, 161, cm, 06/12/19 8:56:00 [...] 3 Refills, Maintenance, 12/24/19 13:41:00 EDT, ECCapsule, [facility] 1967, 161, cm, 06/12/19 8:56:00 EDT, Height, 106, kg, 09/11/18 13:37:00 EDT, Dry Weight Start Date: 12/24/19 Status: Ordered diclofenac sodium 75 mg oral delayed release tablet 1 tablet = 75 mg, By Mouth, 2 times a day, PRN for pain, TAKE WITH FOOD, # 28 tablet, 1 Refills, Maintenance, 12/16/19 9:22:00 EDT, Tablet, [facility] 1967, 161, cm, 06/12/19 8:56:00 [...] tablet, 3 Refills, Maintenance, 02/09/20 17:27:00 EST, [facility] 1967, 161, cm, 06/12/19 8:56:00 [...] tablet, 11 Refills, Maintenance, 02/10/20 14:25:00 EST, [facility], 161, c... Start Date: [...] each, 5 Refills, Maintenance, 12/24/19 13:58:00 EDT, [facility] 1967, 161, cm, 208:56:00 EDT, [...] 13:40:00 EDT, Inhaler, Route to Pharmacy Electronically, [id number],[facility], 161, cm, 06/12/19 8:56:00 ED... Start Date: 12/24/19 Status: Ordered ProAir HFA 90 mcg/inh inhalation aerosol with adapter 2, puffs, Inhalation, 4 times a day, PRN, # 2 each, Refills 5, Tot. Refills 5, Maintenance, 05/19/19 15:55:00 EST, Aerosol, Route to Pharmacy Electronically, [id number], [facility], 161, cm, 01/20/19 11:38:00 [...]
--- OUTSIDE RECORDS SUMMARY | 2024-02-22 11:38 | XMS_ITS | Continuity of Care Document ---
Author Organization [facility] Address [address], [address] [place] [address]- Care Team Providers Care Merchandise Complaint Adjuster Name Role Phone Nanci Melendez MD Primary Care Physician [phone] Encounter [facility] Date(s): 05/28/23 - 06/27/23 [facility] Susanenrique SosaNano [employer] [facility] [address], [address] [place], [place] [address] Allergies, Adverse Reactions, Alerts Substance Reaction [...] Vaccine 11/21/89 Recor ded 1Result Comment: [facility]# [id number] PT. TOLERATED INJ. WITHOUT COMPLICATIONS....CO 2Result Comment: [facility]# [id number] PT. TOLERATED INJ. WITHOUT COMPLICATIONS...CO 3Result Comment: [04/06/2016] pt. tolerated inj. without complications...CO 4Result Comment: [04/14/2015] Measles mumps rubella titer Medications albuterol 0.083% inhalation solution 3 mL = 2.5 mg, Inhalation, Every 6 hours, PRN for wheezing, # 100 each, 5 Refills, Maintenance, 06/19/22 15:15:00 EDT, Solution, [facility]/pharmacy #[id number], replaces previous Rx for albuterol-ipatropium solution, 163, cm, 05/01/22 14:15:00 EST, Height, 128.2,... Start Date: 06/19/22 Status: Ordered Dexilant 60 mg oral delayed release capsule See Instructions, Take 1 capsule by mouth once daily, # 90 capsule, 0 Refills, 03/14/22 14:26:00 EST, [facility], 163, cm, 02/27/22 9:06:00 EST, Height, 128.2, kg, 02/05/22 12:22:00 EST, Dry Weight Start Date: 03/14/22 Status: Ordered famotidine 20 mg oral tablet 40 mg, 2, tablet, 2 times a day, Refills 0, Maintenance, 06/18/20 9:38:00 EDT, Partial fill upon patient request if the prescription is for a schedule II opioid drug. Start Date: 06/18/20 Status: Ordered ferrous sulfate 325 mg oral tablet 1 tablet = 325 mg, By Mouth, 2 times a day, # 60 tablet, 11 Refills, Maintenance, 08/18/21 16:40:00EDT, Tablet, [facility], Partial fill upon patient request if the prescription is for a schedule II opioid drug., 162, cm, 08/18/21 13:09:00... Start Date: 08/18/21 Status: Ordered Flonase 1 sprays, Daily, 0 Refills, Maintenance, 04/10/16 10:01:51 Start Date: 04/10/16 Status: Ordered fluticasone-salmeterol 500 mcg-50 mcg inhalation powder 1, Doses, Inhalation, 2 times a day, # 60 each, Refills 5, Tot. Refills 5, 03/12/23 11:30:00 EST, Route to Pharmacy Electronically, [id number], [facility]/pharmacy #[id number], 163, cm, 03/02/23 13:11:00 EST, Height, 128.2, kg, 02/05/22 1... 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, 08/30/18 17:26:09 EDT, Compound Start Date: 08/30/18 Status: Ordered norethindrone 0.35 mg oral tablet 1 tablet, By Mouth, Daily, # 84 tablet, 5 Refills, Maintenance, 08/16/22 9:41:00 EDT, [id number], 163, cm, 05/01/22 14:15:00 EST, Height, 128.2, kg, 02/05/22 12:22:00 EST, Dry Weight Start Date: 08/16/22 Status: Ordered ondansetron 4 mg oral tablet See Instructions, TAKE 1 TABLET BY MOUTH EVERY 8 HOURS NEEDED FOR NAUSEA AND VOMITING FOR 5 DAYS, # 15 each, 11 Refills, Maintenance, 06/19/22 15:15:00 EDT, [facility]/pharmacy #[id number], 163, cm, 05/01/22 14:15:00 EST, Height, 128.2, kg, 02/05/22 12:22:00 ES... Start Date: 06/19/22 Status: Ordered Multivitamins By Mouth, Daily, 0 Refills, Maintenance, 06/05/18 11:27:06 EST Start Date: 06/05/18 Status: Ordered Ventolin HFA 108 mcg/inh inhalation aerosol with adapter 2 puffs, Inhalation, Every 4 hours, PRN for wheezing, # 8 Gm, 5 Refills, Maintenance, 03/12/23 11:35:00 EST, Aerosol, [facility]/pharmacy #[id number], Partial fill upon patient request if the prescription is for a schedule II opioid drug., 163, cm, 03/02/23 13:11:... Start Date: 03/12/23 Status: Ordered Vitamin B12 0 Refills, Maintenance, [...] Care team information Care Team Personnel Name: Adela Sorto MD Position: [facility] DIRECTOR OF WORKFORCE DEVELOPMENT MD Member Role: Lifetime DIRECTOR OF WORKFORCE DEVELOPMENT Physician Address: Address: [address] [place] [address], [address] [facility] [address] Name: Nanci Melendez MD Position: [facility] Physician - Primary Care Member Role: PCP Address: Address: [address] [place] [id number] Care Team Related Persons Name: SEAN RITCHIE Address: [address] Address: home [address] [place] [address] Name: DERRELL RITCHIE Address: home [address] [address] [place] [address] Name: DERRELL RITCHIE Address: home [address] [place] [address] Name: DERRELL RITCHIE Address: home [address] [place] [address] Name: SHEBA CANO Address: home [address] [place] [address] Name: DAYANNA CANO Address: home [address] [place] [id number]
--- OUTSIDE RECORDS SUMMARY | 2024-02-22 11:38 | XMS_ITS | Continuity of Care Document ---
Author Organization [facility] Address [address], [address] [place] [address]- Care Team Providers Care Air Pollution Compliance Inspector Name Role Phone Nanci Melendez MD Primary Care Physician [phone] [place] [facility] [place] Date(s): 12/06/21 - 12/13/21 [facility] Susanenrique SosaMeetings[facility] [address], [address] [place], [place] [address] Attending Physician: Eloisa Eldridge MD Referring Physician: Estela Rosales MD Allergies, Adverse Reactions, Alerts Substance Reaction [...] Conjugate Vaccine 03/16/06 Recorded Measles/Mumps/Rubella Virus Vaccine 5/8/00 Recor ded Measles/Mumps/Rubella Virus Vaccine 11/21/89 Recor ded 1Result Comment: [facility]# [id number] PT. TOLERATED INJ. WITHOUT COMPLICATIONS....CO 2Result Comment: [facility]# [id number] PT. TOLERATED INJ. WITHOUT COMPLICATIONS...CO 3Result Comment: [04/06/2016] pt. tolerated inj. without complications...CO 4Result Comment: [04/14/2015] Measles mumps rubella titer Medications Albuterol (Eqv-ProAir HFA) 90 mcg/inh inhalation aerosol See Instructions, INHALE 2 PUFFS BY MOUTH 4 TIMES DAILY NEEDED FOR WHEEZING, # 9 Gm, 6 Refills, 08/17/21 9:51:00 EDT, [facility], 25, INHALE 2 PUFFS BY MOUTH 4 TIMES DAILY NEEDED FORWHEEZING, 162, cm, 08/03/21 16:59:00 EDT, Height, 1... Start Date: 08/17/21 Status: Ordered albuterol 0.083% inhalation solution 3 mL = 2.5 mg, Inhalation, Every 6 hours, PRN for wheezing, # 100 each, 5 Refills, Maintenance, 08/17/21 9:51:00 EDT, Solution, [facility], replaces previous Rx for albuterol-ipatropium solution, 162, cm, 08/03/21 16:59:00 EDT, Height, 110,... Start Date: 08/17/21 Status: Ordered Benadryl 25 mg oral capsule See Instructions, 2 capsule By Mouth PRN, 0 Refills, Maintenance, 07/24/18 11:01:32 EDT Start Date: 07/24/18 Status: Ordered Dexilant 60 mg oral delayed release capsule See Instructions, Take 1 capsule by mouth once daily, # 90 capsule, 1 [facility]ills[facility], 162, cm, 09/16/21 15:34:00 EDT, Height, 107.4, kg, 08/20/21 8:43:00 EDT, Dry Weight Start Date: 09/23/21 Status: Ordered famotidine 20 mg oral tablet [...] tablet, 11 Refills, Maintenance, 08/18/21 16:40:00EDT, Tablet, [facility], Partial fill upon patient [...] 08/17/21 9:51:00 EDT, Route to Pharmacy Electronically, [id number], [facility], 162, cm, 08/03/21 16:59:00 EDT, Height, 110, kg, 08/03/21 1... Start Date: 08/17/21 Status: Ordered metFORMIN 500 mg oral tablet, extended release See Instructions, take 1 tablet po w/dinner x1 wk, then increase to 2 tablets x 1-2 wks, then increase to 3 tablets 1-2 wks,then 4 tabs with dinner every day., # 120 tablet, 11 Refills, Maintenance, 03/16/21 11:27:00 EST, [facility], 162, c... Start Date: 03/16/21 Status: Ordered Nebulizer/Compressor See Instructions, # 1 units, Maintenance, dx: J45.909 use daily lifetime use, 08/30/18 17:26:09 EDT, Compound Start Date: 08/30/18 Status: Ordered ondansetron 4 mg oral tablet See Instructions, TAKE 1 TABLET BY MOUTH EVERY 8 HOURS NEEDED FOR NAUSEA AND VOMITING FOR 5 DAYS, # 15 each, 11 Refills, Maintenance, 06/18/20 9:35:00 EDT, [facility], 161, cm, 219:18:00 EDT, Height, 106, kg, 09/11/18 13:37:00 EDT... Start Date: 06/18/20 Status: Ordered Multivitamins By Mouth, Daily, 0 Refills, Maintenance, 06/05/18 11:27:06 EST Start Date: 06/05/18 Status: Ordered simethicone 250 mg oral capsule 1 capsule = 250 mg, By Mouth, Daily, 0 Refills, Maintenance, 06/07/18 9:16:30 EST Start Date: 06/07/18 Status: Ordered Vitamin B12 0 Refills, Maintenance, [...] Date: 06/18/20 Status: Ordered Problem List Condition Effective Dates Status Health Status Inform ant Asthma(Confirmed) Active Asthma(Confirmed) Active GERD (gastroesophageal reflu x disease)(Confirmed) Active Gastroparesis(Confirmed) Active Gastroparesis(Confirmed) Active Headache(Confirmed) Active Palpitations(Confirmed) Active 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 PCOS (polycystic ovarian syndrome)(Confirmed) Active Severe obesity(Confirmed) Active Sleep apnea(Confirmed) Active Fatty liver(Confirmed) Active Vital Signs Most recent to oldest [Reference Range]: 1 Height 162 cm (12/06/21 1:32 PM) Weight 115.4 kg (12/06/21 1:32 PM) Body Mass Index [18.5-24.99] 43.97 *>HHI* (12/06/21 1:32 PM) Blood Pressure [90-138/55-84 mm Hg] 118/ 69mm Hg (12/06/21 1:32 PM) Blood pressure sites Arm, left (12/06/21 1:32 PM) Weight Obtained Via Standing scale (12/06/21 1:32 PM) Social History Social History Type Response Smoking Status Never smoker; Tobacc o user in household: No entered on: 07/02/15 Sex Care Team Personnel Name: Nanci Melendez MD Address: [address] [place] [address]
--- OUTSIDE RECORDS SUMMARY | 2024-02-22 11:38 | XMS_ITS | Continuity of Care Document ---
Author Organization [facility] Address [address] [facility], [address] [place] [address]- Care Team Providers Care Fish Salter Name Role Phone Al DIEGO, Nanci Segovia Primary Care Physician En[place] [facility] [place] Date(s): 06/22/20 - 07/22/20 [facility] Susanenrique SosaNonaboxs [facility] [address] [facility] [address], [address] [place], [place] [address] Attending Physician: Marely Fu Admitting Physician: AdmMarely pineda Referring Physician: AdmtrMarely Allergies, Adverse Reactions, Alerts Substance Reaction Severity [...] 11/21/89 Recor ded 1Result Comment: [facility]# [id number] PT. TOLERATED INJ. WITHOUT COMPLICATIONS....CO 2Result Comment: [facility]# [id number] PT. TOLERATED INJ. WITHOUT COMPLICATIONS...CO 3Result Comment: [04/06/2016] pt. tolerated inj. without complications...CO 4Result Comment: [04/14/2015] Measles mumps rubella titer Medications Advair Diskus 500 mcg-50 mcg inhalation powder 1, puffs, Inhalation, 2 times a day, # 1 each, Refills 12, Tot. Refills 12, Maintenance, 12/24/19 13:40:00 EDT, Route to Pharmacy Electronically, [id number], [facility], 161, cm, 06/12/19 8:56:00 EDT, Height, 106,... Start Date: 12/24/19 Status: Ordered Albuterol (Eqv-ProAir HFA) 90 mcg/inh inhalation aerosol 2 puffs, Inhalation, 4 times a day, PRN NEEDED FOR WHEEZING, # 18 Gm, 10 Refills, Maintenance, 06/07/20 14:34:00 EST, [facility], 50, INHALE 2 PUFFS BY MOUTH 4 TIMES DAILY NEEDED FORWHEEZING, 161, cm, 02/10/20 14:26:00 EST, Height, 1... Start Date: 06/07/20 Status: Ordered albuterol-ipratropium 3 mg-0.5 mg/3 ml inhalation solution 3 mL, Neb, 4 times a day, PRN shortness of breath, # 180 mL, 11 Refills, Maintenance, 06/18/20 9:36:00 EDT, Solution, [facility], 3 mL Neb 4 times a day,PRN:shortness of breath, 161, cm, 06/18/20 9:18:00 EDT, Height, 106, kg, 09/11/18 13:37... Start Date: 06/18/20 Status: Ordered Benadryl 25 mg oral capsule See Instructions, 2 capsule By Mouth PRN, 0 Refills, Maintenance, 07/24/18 11:01:32 EDT Start Date: 07/24/18 Status: Ordered Dexilant 60 mg oral delayed release capsule 1 capsule = 60 mg, By Mouth, Daily, # 90 capsule, 3 Refills, Maintenance, 12/24/19 13:41:00 EDT, ECCapsule, [facility], 161, cm, 06/12/19 8:56:00 EDT, Height, 106, kg, 09/11/18 13:37:00 EDT, Dry Weight Start Date: 12/24/19 Status: Ordered famotidine 20 mg oral tablet [...] 3-7, # 15 tablet, 3 Refills, Maintenance, 06/08/20 8:28:00 EST, [facility], 161, cm, 02/10/20 14:26:00 EST, Height, 106, kg, 09/11/18 13:37:00 EDT, Dry Weight Start Date: 06/08/20 Status: Ordered metFORMIN 500 mg oral tablet, extended release See Instructions, take 1 tablet po w/dinner x1 wk, then increase to 2 tablets x 1-2 wks, then increase to 3 tablets 1-2 wks,then 4 tabs with dinner every day., # 120 tablet, 11 Refills, Maintenance, 02/10/20 14:25:00 EST, [facility], 161, c... Start Date: 02/10/20 Status: Ordered Nebulizer/Compressor See Instructions, # 1 units, Maintenance, dx: J45.909 use daily lifetime use, 08/30/18 17:26:09 EDT, Compound Start Date: 08/30/18 Status: Ordered ondansetron 4 mg oral tablet See Instructions, TAKE 1 TABLET BY MOUTH EVERY 8 HOURS NEEDED FOR NAUSEA AND VOMITING FOR 5 DAYS, # 15 each, 11 Refills, Maintenance, 06/18/20 9:35:00 EDT, [facility], 161, cm, 219:18:00 EDT, Height, 106, kg, 09/11/18 13:37:00 EDT... Start Date: 06/18/20 Status: Ordered Ovidrel 250 mcg/0.5 mL subcutaneous solution See Instructions, Take 2 doses subcutaneous injection once per cycle., # 2 each, 3 Refills, Maintenance, 06/08/20 8:30:00 EST, [facility], 161, cm, 02/10/20 14:26:00 EST, Height, 106, kg,09/11/18 13:37:00 EDT, Dry Weight Start Date: 06/08/20 Status: Ordered Multivitamins By Mouth, Daily, 0 Refills, Maintenance, 06/05/18 11:27:06 EST Start Date: 06/05/18 Status: Ordered Provera 10 mg oral tablet 10 mg, 1, tablet, By Mouth, Daily, # 10 tablet, Refills 0, Tot. Refills 0, Maintenance, 07/09/20 16:28:00 EDT, Route to Pharmacy Electronically, [facility], Partial fill upon patient request if the prescription is for a schedule II opioid d... Start Date: 07/09/20 Stop Date: 07/19/20 Status: Ordered simethicone 250 mg oral capsule 1 capsule = 250 mg, By Mouth, Daily, 0 Refills, Maintenance, 06/07/18 9:16:30 EST Start Date: 06/07/18 Status: Ordered Vitamin D3 1000 intl units [...]
--- OUTSIDE RECORDS SUMMARY | 2024-02-22 11:38 | XMS_ITS | Continuity of Care Document ---
Author Organization [facility] [employer] [facility] Address [address] [place] [address], [address] [address]- Care Team Providers Care Project Hire Name Role Phone Nanci Melendez MD Primary Care Physician [phone] Encounter [facility] Date(s): 05/01/22 - 05/08/22 [facility] Susanenrique SosaMoni [employer] [facility] [address] [facility], [address] [place], [place] [address] Attending Physician: Adela Sorto MD Allergies, Adverse [...] ded 1Result Comment: [facility]# [id number] PT. TOLERATED INJ. WITHOUT COMPLICATIONS....CO 2Result Comment: [facility]# [id number] PT. TOLERATED INJ. WITHOUT COMPLICATIONS...CO 3Result Comment: [04/06/2016] pt. tolerated inj. without complications...CO 4Result Comment: [04/14/2015] Measles mumps rubella titer Medications acetaminophen 325 mg oral tablet 650 mg, By Mouth, Every 4 hours, PRN, not to exceed 4000 mg/day, # 60 tablet, Refills 0, Tot. Refills 0, Maintenance, Pain , Mild, 02/08/22 8:05:00 EST, Route to Pharmacy Electronically, [facility], Partial fill upon patient request if the... Start Date: 02/08/22 Status: Ordered Albuterol (Eqv-ProAir HFA) 90 mcg/inh inhalation aerosol See Instructions, INHALE 2 PUFFS BY MOUTH 4 TIMES DAILY NEEDED FOR WHEEZING, # 9 Gm, 6 Refills, 08/17/21 9:51:00 EDT, [facility], 25, INHALE 2 PUFFS BY MOUTH 4 TIMES DAILY NEEDED FORWHEEZING, 162, cm, 08/03/21 16:59:00 EDT, Height, 1... Start Date: 08/17/21 Status: Ordered albuterol 0.083% inhalation solution 3 mL = 2.5 mg, Inhalation, Every 6 hours, PRN for wheezing, # 100 each, 5 Refills, Maintenance, 08/17/21 9:51:00 EDT, Solution, [facility], replaces previous Rx for albuterol-ipatropium solution, 162, cm, 08/03/21 16:59:00 EDT, Height, 110,... Start Date: 08/17/21 Status: Ordered Benadryl 25 mg oral capsule See Instructions, 2 capsule By Mouth PRN, 0 Refills, Maintenance, 07/24/18 11:01:32 EDT Start Date: 07/24/18 Status: Ordered Carafate 1 gm/10 ml oral suspension 10 mL = 1 Gm, By Mouth, 3 times a day before meals and bedtime, # 560 mL, 0 Refills, Maintenance, 03/17/22 15:45:00 EST, [facility], Partial fill upon patient request if the prescription is for a schedule II opioid drug., 163, cm, 03/17/22... Start Date: 03/17/22 Stop Date: 03/31/22 Status: Ordered Dexilant 60 mg oral delayed release capsule See Instructions, Take 1 capsule by mouth once daily, # 90 capsule, 0 Refills, 03/14/22 14:26:00 EST, [facility], 163, cm, 02/27/22 9:06:00 EST, Height, 128.2, kg, 02/05/22 12:22:00 EST, Dry Weight Start Date: 03/14/22 Status: Ordered Diflucan 150 mg oral tablet 1 tablet = 150 mg, By Mouth, Once, # 1 tablet, 0 Refills, Soft Stop, 03/01/22 15:59:00 EST, Tablet,[facility], Partial fill upon patient request [...] tablet, 11 Refills, Maintenance, 08/18/21 16:40:00EDT, Tablet, [facility], Partial fill upon patient request if the prescription is for a schedule II opioid drug., 162, cm, 08/18/21 13:09:00... Start Date: 08/18/21 Status: Ordered Flonase 1 sprays, Daily, 0 Refills, Maintenance, 04/10/16 10:01:51 Start Date: 04/10/16 Status: Ordered fluticasone-salmeterol 500 mcg-50 mcg inhalation powder 1, Doses, Inhalation, 2 times a day, # 60 each, Refills 5, Tot. Refills 5, 05/04/22 9:46:00 EST, Route to Pharmacy Electronically, [id number], [facility], 163, cm, 05/01/22 14:15:00 EST, Height, 128.2, kg, 02/05/22... Start Date: 05/04/22 Status: Ordered ibuprofen 800 mg oral tablet 800 mg, 1, tablet, By Mouth, Every 8 hours, PRN, not to exceed 3200 mg/day with food or milk, # 40 tablet, Refills 0, Tot. Refills 0, Maintenance, Pain , Moderate, 02/08/22 8:05:00 EST, Route to Pharmacy Electronically, [facility], Partial... Start Date: 02/08/22 [...] apnea Confirmed Active Fatty liver Confirmed Active Vital Signs Most recent to oldest [Reference Range]: 1 Height 163 cm (05/01/22 2:15 PM) Social History Social History Type Response Smoking Status Never smoker; Tobacc o user in household: No entered on: 07/02/15 Sex Patient Care team information Care Team Personnel Name: Nanci Melendez MD Position: [facility] Primary Care Physician Member Role: PCP Address: Address: [address] [place] [address]- Care Team Related Persons Name: SEAN RITCHIE Address: [address] Address: home [address] [place] [address] Name: DERRELL RITCHIE Address: [address] [address] Name: DERRELL RITCHIE Address: [address] [address] Name: DERRELL RITCHIE Address: home [address] [place] [address] Name: SHEBA CANO Address: home [address] [place] [address] Name: DAYANNA CANO Address: [address] [address]
--- OUTSIDE RECORDS SUMMARY | 2024-02-22 11:38 | XMS_ITS | Continuity of Care Document ---
Author Organization [facility] Address [address] [place] [address], [address] [place] [address]- Care Team Providers Care Sports Team Marketing Intern Name Role Phone Nanci Melendez MD Primary Care Physician [phone] Encounter [facility] Date(s): 01/04/22 - 01/11/22 [facility] [address] [facility], 4th Floor [place], [place] [address] [place] Attending Physician: Estela Rosales MD Allergies, Adverse Reactions, [...] Virus Vaccine 11/21/89 Recor ded 1Result Comment: [facility]# [id number] PT. TOLERATED INJ. WITHOUT COMPLICATIONS....CO 2Result Comment: [facility]# [id number] PT. TOLERATED INJ. WITHOUT COMPLICATIONS...CO 3Result Comment: [04/06/2016] pt. tolerated inj. without complications...CO 4Result Comment: [04/14/2015] Measles mumps rubella titer Medications Albuterol (Eqv-ProAir HFA) 90 mcg/inh inhalation aerosol See Instructions, INHALE 2 PUFFS BY MOUTH 4 TIMES DAILY NEEDED FOR WHEEZING, # 9 Gm, 6 Refills, 08/17/21 9:51:00 EDT, [facility] 1967, 25, INHALE 2 PUFFS BY MOUTH 4 TIMES DAILY NEEDED FORWHEEZING, 162, cm, 08/03/21 16:59:00 EDT, Height, 1... Start Date: 08/17/21 Status: Ordered albuterol 0.083% inhalation solution 3 mL = 2.5 mg, Inhalation, Every 6 hours, PRN for wheezing, # 100 each, 5 Refills, Maintenance, 08/17/21 9:51:00 EDT, Solution, [facility] 1966, replaces previous Rx for albuterol-ipatropium [...] once daily, # 90 capsule, 1 Refills, [facility] 1967, 162, cm, 09/16/21 15:34:00 EDT, [...] 11 Refills, Maintenance, 08/18/21 16:40:00EDT, Tablet, [facility] 1967, Partial fill upon patient request [...] 08/17/21 9:51:00 EDT, Route to Pharmacy Electronically, [id number], [facility], 162, cm, 08/03/21 16:59:00 EDT, Height, 110, kg, 08/03/21 1... Start Date: 08/17/21 Status: Ordered Freestyle Lite Lancets See Instructions, # 120 each, Refills 5, Tot. Refills 5, Maintenance, To test blood sugar 4 x day. 1 packet =100 lancets, 12/26/21 8:55:00 EDT, Compound, 162, cm, 12/19/21 10:25:00 EDT, Height, 107.4, kg, 08/20/21 8:43:00 EDT, Dry Weight Start Date: 12/26/21 Status: Ordered Freestyle Lite Monitor See Instructions, # 1 kit, Maintenance, To test BS 4 x day., 12/15/21 15:11:00 EDT, Compound, 162, cm, 12/06/21 13:32:00 EDT, Height, 107.4, kg, 08/20/21 8:43:00 EDT, Dry Weight Start Date: 12/15/21 Status: Ordered Freestyle Lite Test Strips See Instructions, # 120 each, Refills 5, Tot. Refills 5, Maintenance, To test blood sugar 4 x day. 1 Bottle= 100 test strips, 12/26/21 8:54:00 EDT, Compound, 162, cm, 12/19/21 10:25:00 EDT, Height, 107.4, kg, 08/20/21 8:43:00 EDT, Dry Weight Start Date: 12/26/21 Status: Ordered magnesium oxide 250 mg oral tablet 2 tablet = 500 mg, By Mouth, Daily, 0 Refills, Maintenance, 12/19/21 10:26:00 EDT, Partial fill upon patient request if the prescription is for a schedule II opioid drug. Start Date: 12/19/21 Status: Ordered metFORMIN 500 mg oral tablet, extended release See Instructions, take 1 tablet by moutrh daily, # 120 tablet, 11 Refills, Maintenance, 03/16/21 11:27:00 EST, [facility], 162, cm, 03/10/21 14:17:00 EST, Height, 105.2, kg, 02/12/21 17:08:00 EST, Dry Weight Start Date: 03/16/21 Status: Ordered Nebulizer/Compressor See Instructions, # 1 units, Maintenance, dx: J45.909 use daily lifetime use, 08/30/18 17:26:09 EDT, Compound Start Date: 08/30/18 Status: Ordered ondansetron 4 mg oral tablet See Instructions, TAKE 1 TABLET BY MOUTH EVERY 8 HOURS NEEDED FOR NAUSEA AND VOMITING FOR 5 DAYS, # 15 each, 11 Refills, Maintenance, 06/18/20 9:35:00 EDT, [facility], 161, cm, :18:00 EDT, Height, 106, kg, 09/11/18 13:37:00 EDT... [...] oldest [Reference Range]: 1 Height 162 cm (01/04/22 9:52 AM) Weight 119.09 kg (01/04/22 9:52 AM) Body Mass Index [18.5-24.99 kg/m2] 45.38 kg/m2 *>HHI* (01/04/22 9:52 AM) Blood Pressure [90-138/55-84 mm Hg] 94/6 0mm Hg (01/04/22 9:52 AM) Blood pressure sites Arm, left (01/04/22 9:52 AM) Weight Obtained Via Standing scale (01/04/22 9:52 AM) Social History Social History Type Response Smoking Status Never smoker; Tobacc o user in household: No entered on: 07/02/15 Sex Patient Care team information Personnel Name: Nanci Melendez MD Address: Address: [address] [place] [address]
--- OUTSIDE RECORDS SUMMARY | 2024-02-22 11:38 | XMS_ITS | Continuity of Care Document ---
Author Organization [facility] Hina nMoj[facility] Address [address] [facility], [address] [place] [address]- Care Team Providers Care Rn Pediatric Name Role Phone Nanci Melendez MD Primary Care Physician Encounter [facility] Date(s): 01/30/22 - 02/06/22 [facility] Susanenrique SosaMojivas [facility] [address] [facility], [address] [place] [address]- Attending Physician: Anuradha Peters MD Referring Physician: Eloisa Eldridge MD Audrey Allergies, Adverse Reactions, Alerts Substance Reaction Severity [...] Virus Vaccine 11/21/89 Recor ded 1Result Comment: [facility]# [id number] PT. TOLERATED INJ. WITHOUT COMPLICATIONS....CO 2Result Comment: [facility]# [id number] PT. TOLERATED INJ. WITHOUT COMPLICATIONS...CO 3Result Comment: [04/06/2016] pt. tolerated inj. without complications...CO 4Result Comment: [04/14/2015] Measles mumps rubella titer Medications Albuterol (Eqv-ProAir HFA) 90 mcg/inh inhalation aerosol See Instructions, INHALE 2 PUFFS BY MOUTH 4 TIMES DAILY NEEDED FOR WHEEZING, # 9 Gm, 6 Refills, 08/17/21 9:51:00 EDT, [facility], 25, INHALE 2 PUFFS BY MOUTH 4 TIMES DAILY NEEDED FORWHEEZING, 162, cm, 08/03/21 16:59:00 EDT, Height, 1... Start Date: 08/17/21 Status: Ordered albuterol 0.083% inhalation solution 3 mL = 2.5 mg, Inhalation, Every 6 hours, PRN for wheezing, # 100 each, 5 Refills, Maintenance, 08/17/21 9:51:00 EDT, Solution, [facility] 1966, replaces previous Rx for albuterol-ipatropium [...] once daily, # 90 capsule, 1 Refills, [facility], 162, cm, 09/16/21 15:34:00 EDT, [...] tablet, 11 Refills, Maintenance, 08/18/21 16:40:00EDT, Tablet, [facility], Partial fill upon patient [...] 08/17/21 9:51:00 EDT, Route to Pharmacy Electronically, [id number], [facility], 162, cm, 08/03/21 16:59:00 [...] tablet, 11 Refills, Maintenance, 03/16/21 11:27:00 EST, [facility], 162, cm, 03/10/21 14:17:00 EST, [...] in household: No entered on: 07/02/15 Sex Note * Event Display: PDC Follow up Growth * Event Display: PDC Follow up Growth Authored Date: [id number] OBSTETRICS REPORT PATIENT INFO: CMRN: [id number] BMRN: [id number] : [birth year] (31 yrs)(F) Name: RAFA Visit Date: 01/30/2022 09:48 am RITCHIE PERFORMED BY: Performed By: Trudy Ford RDOH Attending: Meredith Hampton MD Referred By: Eloisa Eldridge Location: [address] INDICATIONS: M - BMI O99.21_ E66.01 Assisted reproductive technology (IUI, IVF, O09.81_ ICSI) VITAL SIGNS: Height: 5'4 EVALUATION: Num Of Fetuses: 1 Heart Rate(bpm): 132 Cardiac Activity: Present Presentation: Cephalic Placenta: Posterior Amniotic Fluid TINA FV: Within normal limits TINA Sum(cm) Largest Pocket(cm) 9.2 4.5 RUQ(cm) RLQ(cm) LUQ(cm) 2.9 1.8 4.5 BIOPHYSICAL EVALUATION: Amniotic F.V: Within normal limits F. Tone: Observed F. Movement: Observed Score: 8 F. Breathing: Observed BIOMETRY: BPD: 88.1 mm G.Age: 35w 4d 44 % HC: 319.8 mm G.Age: 36w 0d 19 % AC: 314.4 mm G.Age: 35w 3d 38 % FL: 68.1 mm G.Age: 35w 0d 18 % CI: 76.21 % 70 - 86 FL/HC: 21.3 % 20.1 - 22.1 HC/AC: 1.02 0.93 - 1.11 FL/BPD: 77.3 % 71 - 87 FL/AC: 21.7 % 20 - 24 Est. FW: 2659 gm 5 lb 14 oz 30 % OB HISTORY: : 2 SAB: 1 GESTATIONAL AGE: U/S Today: 35w 4d BOB: [birth year] Best: 36w 1d Det. By: Embryo BOB: 02/26/22 Transfer (06/10/21) CERVIX UTERUS ADNEXA: Cervix Not well seen COMMENTS: The estimated weight is within normal limits. BPP=11/07 Meredith Hampton MD Electronically Signed Final Report 01/30/2022 09:57 am * Event Display: PDC Follow up Growth Authored Date: Please click on pdf link to open report Patient Care team information Care Team Personnel Name: Al DIEGO, Nanci Segovia Position: [facility] Primary Care Physician Member Role: PCP Address: Address: [address] [place] [address]- Care Team Related Persons Name: RAFA RITCHIE Address: [facility] [address] Address: [address] Name: DERRELL RITCHIE Address: home [address] [place] [address] Name: DERRELL RITCHIE Address: home [address] [place] [address] [place] [address] Name: DERRELL RITCHIE Address: home [address] [facility] [address] [place] [address] Name: SHEBA CANO Address: [address] [address] Name: DAYANNA CANO Address: [address] [address]
--- OUTSIDE RECORDS SUMMARY | 2024-02-22 11:38 | XMS_ITS | Continuity of Care Document ---
Author Organization [facility] Address [address] [place] [address]- Care Team Providers Care Cosmetic Assembler Name Role Phone Al DIEGO, Nanci Segovia Primary Care Physician [phone] Encounter [facility] Date(s): 03/10/21 - 04/09/21 [facility] [address] [place] [address]- Allergies, Adverse Reactions, Alerts Substance Reaction Severity [...] Virus Vaccine 11/21/89 Recor ded 1Result Comment: [facility]# [id number] PT. TOLERATED INJ. WITHOUT COMPLICATIONS....CO 2Result Comment: [facility]# [id number] PT. TOLERATED INJ. WITHOUT COMPLICATIONS...CO 3Result Comment: [...] Gm, 10 Refills, Maintenance, 06/07/20 14:34:00 EST, [facility], 50, INHALE 2 PUFFS BY MOUTH 4 TIMES DAILY NEEDED FORWHEEZING, 161, cm, 02/10/20 14:26:00 EST, Height, 1... Start Date: 06/07/20 Status: Ordered albuterol 0.083% inhalation solution 3 mL = 2.5 mg, Inhalation, Every 6 hours, PRN for wheezing, # 25 each, 0 Refills, Maintenance, 04/04/21 12:33:00 EST, Solution, [facility], replaces previous Rx for albuterol-ipatropium solution, 162, cm, 03/10/21 14:17:00 EST, Height, 105.... Start Date: 04/04/21 Status: Ordered albuterol-ipratropium 3 mg-0.5 mg/3 ml inhalation solution 3 mL, Neb, 4 times a day, PRN shortness of breath, # 180 mL, 2 Refills, Maintenance, 04/04/21 8:55:00 EST, Solution, [facility], 3 mL Neb 4 times a day,PRN:shortness of breath, 162, cm, 03/10/21 14:17:00 EST, Height, 105.2, kg, 02/12/21 17:... Start Date: 04/04/21 Status: Ordered Apri 0.15 mg-0.03 mg oral tablet 1 tablet, By Mouth, Daily, start first tablet today, # 1 pack/packet, 3 Refills, Maintenance, 12/09/20 13:48:00 EDT, [facility], Partial fill upon patient request [...] 0 Refills, Maintenance, 02/11/21 12:37:00 EST, ECCapsule, [facility], 163, cm, 01/01/21 10:10:00 EDT, Height Start Date: 02/11/21 Status: Ordered doxycycline hyclate 100 mg oral tablet 1 tablet = 100 mg, By Mouth, 2 times a day, # 28 tablet, 5 Refills, Maintenance, 12/31/20 8:23:00 EDT, [facility], Partial fill upon patient [...] each, Refills 5, Route to Pharmacy Electronically, [id number], [facility], 163, cm, 01/01/21 10:10:00 EDT, Height Start Date: 01/28/21 Status: Ordered Gonal-F 1050 units subcutaneous injection = 150 International_Units, Subcutaneous Injection, Daily, # 2 kit, 5 Refills, Maintenance, 218:23:00 EDT, [facility], Partial fill upon patient request if the prescription is for a schedule II opioid drug., 150 International_Un... Start Date: 12/31/20 Status: Ordered Leuprolide for trigger Leuprolide for trigger, 40 units, Subcutaneous Injection, Once, # 1 each, Refills 0, Tot. Refills 0, Soft Stop, 12/31/20 8:22:00 EDT, Compound, 161, cm, 10/12/20 10:38:00 EDT, Height Start Date: 12/31/20 Status: Ordered metFORMIN 500 mg oral tablet, extended release See Instructions, take 1 tablet po w/dinner x1 wk, then increase to 2 tablets x 1-2 wks, then increase to 3 tablets 1-2 wks,then 4 tabs with dinner every day., # 120 tablet, 11 Refills, Maintenance, 03/16/21 11:27:00 EST, [facility], 162, c... Start Date: 03/16/21 Status: Ordered Nebulizer/Compressor See Instructions, # 1 units, Maintenance, dx: J45.909 use daily lifetime use, 05/31/19 17:26:09 EDT, Compound Start Date: 08/30/18 Status: Ordered ondansetron 4 mg oral tablet See Instructions, TAKE 1 TABLET BY MOUTH EVERY 8 HOURS NEEDED FOR NAUSEA AND VOMITING FOR 5 DAYS, # 15 each, 11 Refills, Maintenance, 06/18/20 9:35:00 EDT, [facility], 161, cm, 219:18:00 EDT, Height, 106, kg, 09/11/18 13:37:00 EDT... Start Date: 06/18/20 Status: Ordered oxyCODONE 5 mg oral tablet 5 mg, 1, tablet, By Mouth, Every 6 hours, PRN, # 8 tablet, Refills 0, Tot. Refills 0, Maintenance, Pain , Mild, 01/18/21 9:22:00 EDT, Route to Pharmacy Electronically, [facility], Partial fill upon patient request if the prescription is for... Start Date: 01/18/21 Status: Ordered predniSONE 10 mg oral tablet See Instructions, 4 tabs By Mouth Daily with food x 2days, then 3 tabs daily x 2days, then 2 tabs daily for 3days, then 1 tab daily for 4 days, # 24 tablet, 0 Refills, Acute 04/25/21 8:56:00 EST, 04/04/21 8:56:00 EST, Tablet, [facility], Pa... Start Date: 04/04/21 Stop Date: 04/25/21 Status: Ordered Pregnyl 60264 u injectable powder for injection = 1,000 units, Intramuscular, Once, For use as trigger shot. Use 3 mL of diluent to reconstitute powder. Draw and administer 0.3 mL of reconsituted pregnyl for total dose of 1000 units., # 1 kit, 5 Refills, Soft Stop, 12/31/20 8:24:00 EDT, [facility]... Start Date: 12/31/20 Status: Ordered Multivitamins By Mouth, Daily, 0 Refills, Maintenance, 06/05/18 11:27:06 EST Start Date: 06/05/18 Status: Ordered progesterone 50 mg/mL intramuscular solution 50mg/ml 1 ml (sesame oil), Intramuscular, Daily, # 30 mL, 5 Refills, Maintenance, 02/03/21 11:55:00EDT, [facility], Partial fill upon patient request if the prescription is for a schedule II opioid drug., 163, cm, 01/01/21 10:10:00 E... Start Date: 02/03/21 Status: Ordered Prometrium 200 mg oral capsule See Instructions, vaginally 3 times a day, # 90 tablet, 5 Refills, Maintenance, 12/31/20 8:22:00 EDT, [facility], Partial fill upon patient request if the prescription is for a schedule II opioid drug., 161, cm, 10/12/20 10:38:00 EDT,... Start Date: 12/31/20 Status: Ordered Provera 10 mg oral tablet 10 mg, 1, tablet, By Mouth, Daily, # 10 tablet, Refills 0, Tot. Refills 0, Maintenance, 04/04/21 10:58:00 EST, Route to Pharmacy Electronically, [facility], Partial fill upon patient request if the prescription is for a schedule II opioid d... Start Date: 04/04/21 Stop Date: 04/14/21 Status: Ordered simethicone 250 mg oral capsule 1 capsule = 250 mg, By Mouth, Daily, 0 Refills, Maintenance, 06/07/18 9:16:30 EST Start Date: 06/07/18 Status: Ordered Valium 5 mg oral tablet 5 mg, 1, tablet, By Mouth, Once, once as directed by MD office, july to repeat x1, # 2 tablet, Refills 0, Tot. Refills 0, Soft Stop, 01/18/21 9:22:00 EDT, Route to Pharmacy Electronically, [facility], Partial fill upon patient request [...] patch, 5 Refills, Maintenance, 12/31/20 8:23:00 EDT, [facility], Partial fill upon patient request if the prescription is for a schedule II opio... Start Date: 12/31/20 Status: Ordered yes yes, See Instructions, # 2 each, Refills 5, Tot. Refills 5, Maintenance, Cross Capped Insulin Syringe for lupron administration, 12/31/20 [...] (polycystic ovarian syndrome)(Confirmed) Active Urinary retention(Confirmed) Active Severe obesity(Confirmed) Active Sleep apnea(Confirmed) Active Sleep apnea(Confirmed) Active Fatty liver(Confirmed) Active Social History Social History Type Response Smoking Status Never smoker; Tobacc o user in household: No entered on: 07/02/15 Sex
--- OUTSIDE RECORDS SUMMARY | 2024-02-22 11:38 | XMS_ITS | Continuity of Care Document ---
Author Organization [facility] Address [address] [facility], [address]t [address] [place] [address]- Care Team Providers Care Rules Examiner Name Role Phone Al DIEGO, Nanci Segovia Primary Care Physician [place] [facility] [place] 07/08/20 - 08/07/20 [facility] [address] [facility], 4th [address] [place] [address] Allergies, Adverse Reactions, Alerts Substance Reaction [...] Virus Vaccine 11/21/89 Recor ded 1Result Comment: [facility]# [id number] PT. TOLERATED INJ. WITHOUT COMPLICATIONS....CO 2Result Comment: [facility]# [id number] PT. TOLERATED INJ. WITHOUT COMPLICATIONS...CO 3Result Comment: [04/06/2016] pt. tolerated inj. without complications...CO 4Result Comment: [04/14/2015] Measles mumps rubella titer Medications Advair Diskus 500 mcg-50 mcg inhalation powder 1, puffs, Inhalation, 2 times a day, # 1 each, Refills 12, Tot. Refills 12, Maintenance, 12/24/19 13:40:00 EDT, Route to Pharmacy Electronically, [id number], [facility], 161, cm, 06/12/19 8:56:00 EDT, Height, 106,... Start Date: 12/24/19 Status: Ordered Albuterol (Eqv-ProAir HFA) 90 mcg/inh inhalation aerosol 2 puffs, Inhalation, 4 times a day, PRN NEEDED FOR WHEEZING, # 18 Gm, 10 Refills, Maintenance, 06/07/20 14:34:00 EST, [facility], 50, INHALE 2 PUFFS BY MOUTH 4 TIMES DAILY NEEDED FORWHEEZING, 161, cm, 02/10/20 14:26:00 EST, Height, 1... Start Date: 06/07/20 Status: Ordered albuterol-ipratropium 3 mg-0.5 mg/3 ml inhalation solution 3 mL, Neb, 4 times a day, PRN shortness of breath, # 180 mL, 11 Refills, Maintenance, 06/18/20 9:36:00 EDT, Solution, [facility], 3 mL Neb 4 times [...] 3 Refills, Maintenance, 12/24/19 13:41:00 EDT, ECCapsule, [facility], 161, cm, 06/12/19 8:56:00 EDT, [...] tablet, 3 Refills, Maintenance, 06/08/20 8:28:00 EST, [facility], 161, cm, 02/10/20 14:26:00 EST, [...] tablet, 11 Refills, Maintenance, 02/10/20 14:25:00 EST, [facility], 161, c... Start Date: 02/10/20 Status: Ordered Nebulizer/Compressor See Instructions, # 1 units, Maintenance, dx: J45.909 use daily lifetime use, 08/30/18 17:26:09 EDT, Compound Start Date: 08/30/18 Status: Ordered ondansetron 4 mg oral tablet See Instructions, TAKE 1 TABLET BY MOUTH EVERY 8 HOURS NEEDED FOR NAUSEA AND VOMITING FOR 5 DAYS, # 15 each, 11 Refills, Maintenance, 06/18/20 9:35:00 EDT, [facility], 161, cm, 219:18:00 EDT, [...] 07/09/20 16:28:00 EDT, Route to Pharmacy Electronically, [facility], Partial fill upon [...]
--- OUTSIDE RECORDS SUMMARY | 2024-02-22 11:38 | XMS_ITS | Continuity of Care Document ---
Author Organization [facility] Address Unknown Care Team Providers Care Cleaner Operator Name Role Phone Al DIEGO, Nanci Segovia Primary Care Physician [facility] Date(s): 01/17/21 - 02/16/21 [facility] Allergies, Adverse Reactions, Alerts [...] ded 1Result Comment: [facility]# [id number] PT. TOLERATED INJ. WITHOUT COMPLICATIONS....CO 2Result Comment: [facility]# [id number] PT. TOLERATED INJ. WITHOUT COMPLICATIONS...CO 3Result Comment: [...] Gm, 10 Refills, Maintenance, 06/07/20 14:34:00 EST, [facility], 50, INHALE 2 PUFFS BY MOUTH 4 TIMES DAILY NEEDED FORWHEEZING, 161, cm, 02/10/20 14:26:00 EST, Height, 1... Start Date: 06/07/20 Status: Ordered albuterol-ipratropium 3 mg-0.5 mg/3 ml inhalation solution 3 mL, Neb, 4 times a day, PRN shortness of breath, # 180 mL, 11 Refills, Maintenance, 06/18/20 9:36:00 EDT, Solution, [facility], 3 mL Neb 4 times a day,PRN:shortness of breath, 161, cm, 06/18/20 9:18:00 EDT, Height, 106, kg, 09/11/18 13:37... Start Date: 06/18/20 Status: Ordered Apri 0.15 mg-0.03 mg oral tablet 1 tablet, By Mouth, Daily, start first tablet today, # 1 pack/packet, 3 Refills, Maintenance, 12/09/20 13:48:00 EDT, [facility], Partial fill upon patient [...] 0 Refills, Maintenance, 02/11/21 12:37:00 EST, ECCapsule, [facility], 163, cm, 01/01/21 10:10:00 EDT, Height Start Date: 02/11/21 Status: Ordered doxycycline hyclate 100 mg oral tablet 1 tablet = 100 mg, By Mouth, 2 times a day, # 28 tablet, 5 Refills, Maintenance, 12/31/20 8:23:00 EDT, [facility], Partial fill upon patient [...] each, Refills 5, Route to Pharmacy Electronically, [id number], [facility], 163, cm, 01/01/21 10:10:00 EDT, Height Start Date: 01/28/21 Status: Ordered ganirelix 250 mcg/0.5 ml subcutaneous injection 0.5 mL = 250 mcg, Subcutaneous Injection, Daily, # 5 each, 5 Refills, Acute 02/20/21 8:26:00 EST, 12/31/20 8:23:00 EDT, Solution, [facility], Partial fill upon patient request if theprescription is for a schedule II opioid drug., 161... Start Date: 12/31/20 Stop Date: 02/20/21 Status: Ordered Gonal-F 1050 units subcutaneous injection = 150 International_Units, Subcutaneous Injection, Daily, # 2 kit, 5 Refills, Maintenance, 218:23:00 EDT, [facility], Partial fill upon patient [...] 02/20/21 8:26:00 EST, 12/31/20 8:22:00 EDT, Powder, [facility], Partial fill upon patient requestif [...] tablet, 11 Refills, Maintenance, 02/10/20 14:25:00 EST, [facility], 161, c... Start Date: [...] each, 11 Refills, Maintenance, 06/18/20 9:35:00 EDT, [facility], 161, cm, 219:18:00 EDT, Height, 106, kg, 09/11/18 13:37:00 EDT... Start Date: 06/18/20 Status: Ordered oxyCODONE 5 mg oral tablet 5 mg, 1, tablet, By Mouth, Every 6 hours, PRN, # 8 tablet, Refills 0, Tot. Refills 0, Maintenance, Pain , Mild, 01/18/21 9:22:00 EDT, Route to Pharmacy Electronically, [facility], Partial fill upon patient request if the prescription is for... Start Date: 01/18/21 Status: Ordered Pregnyl 85140 u injectable powder for injection = 1,000 units, Intramuscular, Once, For use as trigger shot. Use 3 mL of diluent to reconstitute powder. Draw and administer 0.3 mL of reconsituted pregnyl for total dose of 1000 units., # 1 kit, 5 Refills, Soft Stop, 12/31/20 8:24:00 EDT, [facility]... Start Date: 12/31/20 Status: Ordered Multivitamins By Mouth, Daily, 0 Refills, Maintenance, 06/05/18 11:27:06 EST Start Date: 06/05/18 Status: Ordered progesterone 50 mg/mL intramuscular solution 50mg/ml 1 ml (sesame oil), Intramuscular, Daily, # 30 mL, 5 Refills, Maintenance, 02/03/21 11:55:00EDT, [facility], Partial fill upon patient request if the prescription is for a schedule II opioid drug., 163, cm, 01/01/21 10:10:00 E... Start Date: 02/03/21 Status: Ordered Prometrium 200 mg oral capsule See Instructions, vaginally 3 times a day, # 90 tablet, 5 Refills, Maintenance, 12/31/20 8:22:00 EDT, [facility], Partial fill upon patient request [...] 01/18/21 9:22:00 EDT, Route to Pharmacy Electronically, [facility] 1966, Partial fill upon patient request if [...] patch, 5 Refills, Maintenance, 12/31/20 8:23:00 EDT, [facility], Partial fill upon patient request if the prescription is for a schedule II opio... Start Date: 12/31/20 Status: Ordered yes yes, See Instructions, # 2 each, Refills 5, Tot. Refills 5, Maintenance, [place] Capped Insulin Syringe for lupron administration, 12/31/20 [...]
--- OUTSIDE RECORDS SUMMARY | 2024-02-22 11:38 | XMS_ITS | Continuity of Care Document ---
Author Organization [facility] Address [address] [place] [address], [address] [place] [address]- Care Team Providers Care Contact Lens Blocker And Cutter Name Role Phone Al DIEGO, Nanci Segovia Primary Care Physician [facility] Date(s): 04/06/20 - 05/06/20 [facility] [address] [place] [address], [address]th [address] [place] [id number] Allergies, Adverse Reactions, Alerts Substance Reaction [...] Virus Vaccine 11/21/89 Recor ded 1Result Comment: [facility]# [id number] PT. TOLERATED INJ. WITHOUT COMPLICATIONS....CO 2Result Comment: [facility]# [id number] PT. TOLERATED INJ. WITHOUT COMPLICATIONS...CO 3Result Comment: [04/06/2016] pt. tolerated inj. without complications...CO 4Result Comment: [04/14/2015] Measles mumps rubella titer Medications Advair Diskus 500 mcg-50 mcg inhalation powder 1, puffs, Inhalation, 2 times a day, # 1 each, Refills 12, Tot. Refills 12, Maintenance, 12/24/19 13:40:00 EDT, Route to Pharmacy Electronically, [id number], [facility], 161, cm, 06/12/19 8:56:00 EDT, Height, 106,... Start Date: 12/24/19 Status: Ordered albuterol 0.083% inhalation solution 3 mL = 2.5 mg, Inhalation, Every 6 hours, PRN for wheezing, # 60 each, 11 Refills, Maintenance, 12/24/19 13:40:00 EDT, Solution, [facility], 161, cm, 06/12/19 8:56:00 [...] 3 Refills, Maintenance, 12/24/19 13:41:00 EDT, ECCapsule, [facility], 161, cm, 06/12/19 8:56:00 EDT, Height, 106, kg, 09/11/18 13:37:00 EDT, Dry Weight Start Date: 12/24/19 Status: Ordered diclofenac sodium 75 mg oral delayed release tablet 1 tablet = 75 mg, By Mouth, 2 times a day, PRN for pain, TAKE WITH FOOD, # 28 tablet, 1 Refills, Maintenance, 12/16/19 9:22:00 EDT, Tablet, [facility], 161, cm, 06/12/19 8:56:00 [...] tablet, 3 Refills, Maintenance, 02/09/20 17:27:00 EST, [facility], 161, cm, 06/12/19 8:56:00 [...] tablet, 11 Refills, Maintenance, 02/10/20 14:25:00 EST, [facility], 161, c... Start Date: [...] each, 5 Refills, Maintenance, 12/24/19 13:58:00 EDT, [facility], 161, cm, 208:56:00 EDT, [...] 13:40:00 EDT, Inhaler, Route to Pharmacy Electronically, [id number],[facility], 161, cm, 06/12/19 8:56:00 ED... Start Date: 12/24/19 Status: Ordered ProAir HFA 90 mcg/inh inhalation aerosol with adapter 2, puffs, Inhalation, 4 times a day, PRN, # 2 each, Refills 5, Tot. Refills 5, Maintenance, 05/19/19 15:55:00 EST, Aerosol, Route to Pharmacy Electronically, [id number], [facility], 161, cm, 01/20/19 11:38:00 [...]
--- OUTSIDE RECORDS SUMMARY | 2024-02-22 11:38 | XMS_ITS | Continuity of Care Document ---
Author Organization [facility] Address [address] [place] [address]- Care Team Providers Care Music Publicist Name Role Phone Al DIEGO, Nanci Segovia Primary Care Physician [phone] [facility]counter [facility] Date(s): 08/04/21 - 09/03/21 [facility] [address] [place] [address]- Allergies, Adverse Reactions, Alerts Substance Reaction Severity [...] Virus Vaccine 11/21/89 Recor ded 1Result Comment: [facility]# [id number] PT. TOLERATED INJ. WITHOUT COMPLICATIONS....CO 2Result Comment: [facility]# [id number] PT. TOLERATED INJ. WITHOUT COMPLICATIONS...CO 3Result Comment: [04/06/2016] pt. tolerated inj. without complications...CO 4Result Comment: [04/14/2015] Measles mumps rubella titer Medications Albuterol (Eqv-ProAir HFA) 90 mcg/inh inhalation aerosol See Instructions, INHALE 2 PUFFS BY MOUTH 4 TIMES DAILY NEEDED FOR WHEEZING, # 9 Gm, 6 Refills, 08/17/21 9:51:00 EDT, [facility] 1967, 25, INHALE 2 PUFFS BY MOUTH 4 TIMES DAILY NEEDED FORWHEEZING, 162, cm, 08/03/21 16:59:00 EDT, Height, 1... Start Date: 08/17/21 Status: Ordered albuterol 0.083% inhalation solution 3 mL = 2.5 mg, Inhalation, Every 6 hours, PRN for wheezing, # 100 each, 5 Refills, Maintenance, 08/17/21 9:51:00 EDT, Solution, [facility] 1966, replaces previous Rx for albuterol-ipatropium solution, 162, cm, 08/03/21 16:59:00 EDT, Height, 110,... Start Date: 08/17/21 Status: Ordered Benadryl 25 mg oral capsule See Instructions, 2 capsule By Mouth PRN, 0 Refills, Maintenance, 07/24/18 11:01:32 EDT Start Date: 07/24/18 Status: Ordered famotidine 20 mg oral tablet [...] tablet, 11 Refills, Maintenance, 08/18/21 16:40:00EDT, Tablet, [facility] 1966, Partial fill upon patient [...] 08/17/21 9:51:00 EDT, Route to Pharmacy Electronically, [id number], [facility] 1967, 162, cm, 08/03/21 16:59:00 [...] tablet, 11 Refills, Maintenance, 03/16/21 11:27:00 EST, [facility], 162, c... Start Date: 03/16/21 Status: Ordered Nebulizer/Compressor See Instructions, # 1 units, Maintenance, dx: J45.909 use daily lifetime use, 08/30/18 17:26:09 EDT, Compound Start Date: 08/30/18 Status: Ordered ondansetron 4 mg oral tablet See Instructions, TAKE 1 TABLET BY MOUTH EVERY 8 HOURS NEEDED FOR NAUSEA AND VOMITING FOR 5 DAYS, # 15 each, 11 Refills, Maintenance, 06/18/20 9:35:00 EDT, [facility] 1967, 161, cm, :18:00 EDT, Height, [...] Active Gastroparesis(Confirmed) Active Gastroparesis(Confirmed) Active Headache(Confirmed) Active 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 PCOS (polycystic ovarian syndrome)(Confirmed) Active Severe obesity(Confirmed) Active Sleep apnea(Confirmed) Active Fatty liver(Confirmed) Active Social History Social History Type Response Smoking Status Never smoker; Tobacc o user in household: No entered on: 07/02/15 Sex
--- OUTSIDE RECORDS SUMMARY | 2024-02-22 11:38 | XMS_ITS | Continuity of Care Document ---
Author Organization [facility] Address [address] [place] [address], [address] [place] [address]- Care Team Providers Care Gambling Dealer Name Role Phone Al DIEGO, Nanci Segovia Primary Care Physician En[facility] Date(s): 01/18/22 - [facility] [address], [address]th [place] [address]- Attending Physician: Adela Sorto MD Referring Physician: Estela Rosales MD Allergies, [...] Virus Vaccine 11/21/89 Recor ded 1Result Comment: [facility]# [id number] PT. TOLERATED INJ. WITHOUT COMPLICATIONS....CO 2Result Comment: [facility]# [id number] PT. TOLERATED INJ. WITHOUT COMPLICATIONS...CO 3Result Comment: [04/06/2016] pt. tolerated inj. without complications...CO 4Result Comment: [04/14/2015] Measles mumps rubella titer Medications Albuterol (Eqv-ProAir HFA) 90 mcg/inh inhalation aerosol See Instructions, INHALE 2 PUFFS BY MOUTH 4 TIMES DAILY NEEDED FOR WHEEZING, # 9 Gm, 6 Refills, 08/17/21 9:51:00 EDT, [facility] 1967, 25, INHALE 2 PUFFS BY MOUTH 4 TIMES DAILY NEEDED FORWHEEZING, 162, cm, 08/03/21 16:59:00 EDT, Height, 1... Start Date: 08/17/21 Status: Ordered albuterol 0.083% inhalation solution 3 mL = 2.5 mg, Inhalation, Every 6 hours, PRN for wheezing, # 100 each, 5 Refills, Maintenance, 08/17/21 9:51:00 EDT, Solution, [facility] 1966, replaces previous Rx for [...] once daily, # 90 capsule, 1 Refills, [facility], 162, cm, 09/16/21 15:34:00 EDT, [...] tablet, 11 Refills, Maintenance, 08/18/21 16:40:00EDT, Tablet, [facility], Partial fill upon patient [...] 08/17/21 9:51:00 EDT, Route to Pharmacy Electronically, [id number], [facility] 1967, 162, cm, 08/03/21 16:59:00 [...] tablet, 11 Refills, Maintenance, 03/16/21 11:27:00 EST, [facility] 1967, 162, cm, 03/10/21 14:17:00 EST, [...] each, 11 Refills, Maintenance, 06/18/20 9:35:00 EDT, [facility], 161, cm, :18:00 EDT, [...] Personnel Name: Nanci Melendez MD Address: Address: [address] [place] [address]
--- OUTSIDE RECORDS SUMMARY | 2024-02-22 11:38 | XMS_ITS | Continuity of Care Document ---
Author Organization [facility] Address Unknown Care Team Providers Care Flour Worker Name Role Phone Nanci Melendez MD Primary Care Physician [facility] Date(s): 04/19/21 - 05/19/21 [facility] Allergies, Adverse Reactions, Alerts Substance [...] Virus Vaccine 11/21/89 Recor ded 1Result Comment: [facility]# [id number] PT. TOLERATED INJ. WITHOUT COMPLICATIONS....CO 2Result Comment: [facility]# [id number] PT. TOLERATED INJ. WITHOUT COMPLICATIONS...CO 3Result Comment: [04/06/2016] pt. tolerated inj. without complications...CO 4Result Comment: [04/14/2015] Measles mumps rubella titer Medications 22 gauge 1 1/2in needles 22 gauge 1 1/2in needles, See Instructions, # 30 each, Refills 5, Tot. Refills 5, Maintenance, For giving IM progesterone, 04/28/21 9:19:00 EST, Compound, 162, cm, 03/10/21 14:17:00 EST, Height, 105.2, kg, 02/12/21 17:08:00 EST, Dry Weight Start Date: 04/28/21 Status: Ordered 3cc syringe 18g 1 1/2 inch needle 3cc syringe 18g 1 1/2 inch needle, See Instructions, # 30 each, Refills 5, Tot. Refills 5, Maintenance, for drawing up IM progesterone in oil, 04/28/21 9:19:00 EST, Compound, 162, cm, 03/10/21 14:17:00 EST, Height, 105.2, kg, 02/12/21 17:08:00 EST, Dr... Start Date: 04/28/21 Status: Ordered Albuterol (Eqv-ProAir HFA) 90 mcg/inh inhalation aerosol 2 puffs, Inhalation, 4 times a day, PRN NEEDED FOR WHEEZING, # 18 Gm, 10 Refills, Maintenance, 06/07/20 14:34:00 EST[facility], [facility], INHALE 2 PUFFS BY MOUTH 4 TIMES DAILY NEEDED FORWHEEZING, 161, cm, 02/10/20 14:26:00 EST, Height, 1... Start Date: 06/07/20 Status: Ordered albuterol 0.083% inhalation solution 3 mL = 2.5 mg, Inhalation, Every 6 hours, PRN for wheezing, # 25 each, 0 Refills, Maintenance, 04/04/21 12:33:00 EST, Solution[facility], replaces previous Rx for albuterol-ipatropium solution, 162, cm, 03/10/21 14:17:00 EST, Height, 105.... Start Date: 04/04/21 Status: Ordered albuterol-ipratropium 3 mg-0.5 mg/3 ml inhalation solution 3 mL, Neb, 4 times a day, PRN shortness of breath, # 180 mL, 2 Refills, Maintenance, 04/04/21 8:55:00 EST, Solution, [facility], 3 mL Neb 4 times a day,PRN:shortness of breath, 162, cm, 03/10/21 14:17:00 EST, Height, 105.2, kg, 02/12/21 17:... Start Date: 04/04/21 Status: Ordered Apri 0.15 mg-0.03 mg oral tablet 1 tablet, By Mouth, Daily, start first tablet today, # 1 pack/packet, 3 Refills, Maintenance, 12/09/20 13:48:00 EDT, [facility], Partial fill upon patient request [...] 0 Refills, Maintenance, 02/11/21 12:37:00 EST, ECCapsule, [facility], 163, cm, 01/01/21 10:10:00 EDT, Height Start Date: 02/11/21 Status: Ordered Endometrin 100 mg vaginal insert = 100 mg, Vaginally, 3 times a day, to add on day of transfer, # 90 supp, 5 Refills, Maintenance, 04/28/21 9:20:00 EST, [facility], Partial fill upon patient request if the prescription is for a schedule II opioid drug., 162, cm, 120... Start Date: 04/28/21 Status: Ordered famotidine 20 mg oral tablet [...] each, Refills 5, Route to Pharmacy Electronically, [id number], [facility] 1967, 163, cm, 01/01/21 10:10:00 EDT, Height Start Date: 01/28/21 Status: Ordered metFORMIN 500 mg oral tablet, extended release See Instructions, take 1 tablet po w/dinner x1 wk, then increase to 2 tablets x 1-2 wks, then increase to 3 tablets 1-2 wks,then 4 tabs with dinner every day., # 120 tablet, 11 Refills, Maintenance, 03/16/21 11:27:00 EST, [facility], 162, c... 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 Start Date: 06/18/20 Status: Ordered oxyCODONE 5 mg oral tablet 5 mg, 1, tablet, By Mouth, Every 6 hours, PRN, # 8 tablet, Refills 0, Tot. Refills 0, Maintenance, Pain , Mild, 01/18/21 9:22:00 EDT, Route to Pharmacy Electronically, [facility], Partial fill upon patient request if the prescription is for... Start Date: 01/18/21 Status: Ordered Multivitamins By Mouth, Daily, 0 Refills, Maintenance, 06/05/18 11:27:06 EST Start Date: 06/05/18 Status: Ordered progesterone 50 mg/mL intramuscular solution 50mg/ml 1 ml (sesame oil), Intramuscular, Daily, # 30 mL, 5 Refills, Maintenance, 04/28/21 9:19:00 EST, [facility], Partial fill upon patient request if the prescription is for a schedule II opioid drug., 162, cm, 03/10/21 14:17:00 ES... Start Date: 04/28/21 Status: Ordered Provera 10 mg oral tablet 10 mg, 1, tablet, By Mouth, Daily, # 10 tablet, Refills 0, Tot. Refills 0, Maintenance, 04/04/21 10:58:00 EST, Route to Pharmacy Electronically, [facility] 1966, Partial fill upon patient request [...] 01/18/21 9:22:00 EDT, Route to Pharmacy Electronically, [facility] 1966, Partial fill upon patient request [...] transdermal film, extended release See Instructions, Place 1 patch on day 1-4 then 2 patches on day 5-10 and then 4 patches on day 11-14 changing patches QOD., # 32 patch, 5 Refills, Maintenance, 04/28/21 9:19:00 EST, [facility], Partial fill upon patient request if t... Start Date: 04/28/21 Status: Ordered Problem List Condition Effective Dates [...]
--- OUTSIDE RECORDS SUMMARY | 2024-02-22 11:38 | XMS_ITS | Continuity of Care Document ---
Author Organization [facility] Address [address], [address] [place] [address]- Care Team Providers Care Crimper Operator Name Role Phone Nanci Melendez MD Primary Care Physician [phone] [place] [facility] [place] 10/10/21 - 10/17/21 [facility] [address], [address] [place], [place] [address] Attending Physician: Emerson Eid MD Allergies, Adverse Reactions, Alerts Substance Reaction [...] Virus Vaccine 11/21/89 Recor ded 1Result Comment: [facility]# [id number] PT. TOLERATED INJ. WITHOUT COMPLICATIONS....CO 2Result Comment: [facility]# [id number] PT. TOLERATED INJ. WITHOUT COMPLICATIONS...CO 3Result Comment: [04/06/2016] pt. tolerated inj. without complications...CO 4Result Comment: [04/14/2015] Measles mumps rubella titer Medications Albuterol (Eqv-ProAir HFA) 90 mcg/inh inhalation aerosol See Instructions, INHALE 2 PUFFS BY MOUTH 4 TIMES DAILY NEEDED FOR WHEEZING, # 9 Gm, 6 Refills, 08/17/21 9:51:00 EDT, [facility], 25, INHALE 2 PUFFS BY MOUTH 4 TIMES DAILY NEEDED FORWHEEZING, 162, cm, 08/03/21 16:59:00 EDT, Height, 1... Start Date: 08/17/21 Status: Ordered albuterol 0.083% inhalation solution 3 mL = 2.5 mg, Inhalation, Every 6 hours, PRN for wheezing, # 100 each, 5 Refills, Maintenance, 08/17/21 9:51:00 EDT, [facility], replaces previous Rx for albuterol-ipatropium [...] once daily, # 90 capsule, 1 Refills, [facility], 162, cm, 09/16/21 15:34:00 EDT, [...] tablet, 11 Refills, Maintenance, 08/18/21 16:40:00EDT, Tablet, [facility] 1967, Partial fill upon patient [...] 08/17/21 9:51:00 EDT, Route to Pharmacy Electronically, [id number], [facility] 1967, 162, cm, 08/03/21 16:59:00 [...] tablet, 11 Refills, Maintenance, 03/16/21 11:27:00 EST, [facility] 1967, 162, c... Start Date: [...] each, 11 Refills, Maintenance, 06/18/20 9:35:00 EDT, [facility] 1967, 161, cm, 03/19/219:18:00 EDT, Height, 106, kg, 09/11/18 13:37:00 EDT... [...]
--- OUTSIDE RECORDS SUMMARY | 2024-02-22 11:39 | XMS_ITS | Continuity of Care Document ---
Author Organization [facility] Address [address] [place] [address]- Care Team Providers Care Content Analyst Name Role Phone Al DIEGO, Nanci Segovia Primary Care Physician [phone] Encounter [facility] Date(s): 06/24/21 - 07/24/21 [facility] [address] [place] [address]- Allergies, Adverse Reactions, Alerts Substance Reaction Severity [...] Virus Vaccine 11/21/89 Recor ded 1Result Comment: [facility]# [id number] PT. TOLERATED INJ. WITHOUT COMPLICATIONS....CO 2Result Comment: [facility]# [id number] PT. TOLERATED INJ. WITHOUT COMPLICATIONS...CO 3Result Comment: [04/06/2016] pt. tolerated inj. without complications...CO 4Result Comment: [04/14/2015] Measles mumps rubella titer Medications 22 gauge 1 1/2in needles 22 gauge 1 1/2in needles, See Instructions, # 60 each, Refills 5, Tot. Refills 5, Maintenance, For giving IM progesterone, 06/27/21 16:29:00 EDT, Compound, 162, cm, 05/03/21 9:55:00 EST, Height, 105.2, kg, 02/12/21 17:08:00 EST, Dry Weight Start Date: 06/27/21 Status: Ordered 3cc syringe 18g 1 1/2 inch needle 3cc syringe 18g 1 1/2 inch needle, See Instructions, # 60 each, Refills 5, Tot. Refills 5, Maintenance, for drawing up IM progesterone in oil, 06/27/21 16:29:00 EDT, Compound, 162, cm, 05/03/21 9:55:00 EST, Height, 105.2, kg, 02/12/21 17:08:00 EST, DrRenee.. Start Date: 06/27/21 Status: Ordered Albuterol (Eqv-ProAir HFA) 90 mcg/inh inhalation aerosol 2 puffs, Inhalation, 4 times a day, PRN NEEDED FOR WHEEZING, # 18 Gm, 10 Refills, Maintenance, 06/07/20 14:34:00 EST, [facility], 50, INHALE 2 PUFFS BY MOUTH 4 TIMES DAILY NEEDED FORWHEEZING, 161, cm, 02/10/20 14:26:00 EST, Height, 1... Start Date: 06/07/20 Status: Ordered Albuterol (Eqv-ProAir HFA) 90 mcg/inh inhalation aerosol See Instructions, INHALE 2 PUFFS BY MOUTH 4 TIMES DAILY NEEDED FOR WHEEZING, # 9 Gm, 6 Refills, [facility], 25, INHALE 2 PUFFS BY MOUTH 4 TIMES DAILY NEEDED FOR WHEEZING, 162, cm, 05/03/21 9:55:00 EST, Height, 105.2, kg, 02/12/21 17:0... Start Date: 06/24/21 Status: Ordered albuterol 0.083% inhalation solution 3 mL = 2.5 mg, Inhalation, Every 6 hours, PRN for wheezing, # 100 each, 5 Refills, Maintenance, 06/24/21 12:33:00 EDT, Solution, [facility], replaces previous Rx for albuterol-ipatropium solution, 162, cm, 05/03/21 9:55:00 EST, Height, 105.... Start Date: 06/24/21 Status: Ordered Benadryl 25 mg oral capsule See Instructions, 2 capsule By Mouth PRN, 0 Refills, Maintenance, 07/24/18 11:01:32 EDT Start Date: 07/24/18 Status: Ordered Dexilant 60 mg oral delayed release capsule 1 capsule = 60 mg, By Mouth, Daily, # 90 capsule, 0 Refills, Maintenance, 02/11/21 12:37:00 EST, ECCapsule, [facility], 163, cm, 01/01/21 10:10:00 EDT, Height Start Date: 02/11/21 Status: Ordered Endometrin 100 mg vaginal insert = 100 mg, Vaginally, 3 times a day, to add on day of transfer, # 90 supp, 5 Refills, Maintenance, 04/28/21 9:20:00 EST, [facility], Partial fill upon patient request if the prescription is for a schedule II opioid drug., 162, cm, 12/0... Start Date: 04/28/21 Status: Ordered famotidine 20 [...] each, Refills 5, Route to Pharmacy Electronically, [id number], [facility], 163, cm, 01/01/21 10:10:00 EDT, Height Start Date: 01/28/21 Status: Ordered Macrobid macrocrystals-monohydrate 100 mg oral capsule 1 capsule = 100 mg, By Mouth, 2 times a day, for 7 days, # 14 capsule, 0 Refills, Acute 07/31/21 11:15:00 EDT, 07/24/21 11:15:00 EDT, Capsule, [facility], Partial fill upon patient requestif the prescription is for a schedule II opioid adenike... Start Date: 07/24/21 Stop Date: 07/31/21 Status: Ordered metFORMIN 500 mg oral tablet, extended release See Instructions, take 1 tablet po w/dinner x1 wk, then increase to 2 tablets x 1-2 wks, then increase to 3 tablets 1-2 wks,then 4 tabs with dinner every day., # 120 tablet, 11 Refills, Maintenance, 03/16/21 11:27:00 EST, [facility], 162, c... 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 Start Date: 06/18/20 Status: Ordered Multivitamins By Mouth, Daily, 0 Refills, Maintenance, 06/05/18 11:27:06 EST Start Date: 06/05/18 Status: Ordered progesterone 50 mg/mL intramuscular solution 100mg/ml 2 ml (sesame oil), Intramuscular, Daily, # 60 mL, 5 Refills, Maintenance, 06/27/21 16:29:00 EDT, [facility], Partial fill upon patient request if the prescription is for a schedule II opioid drug., 162, cm, 05/03/21 9:55:00 E... Start Date: 06/27/21 Status: Ordered Provera 10 mg oral tablet 10 mg, 1, tablet, By Mouth, Daily, # 10 tablet, Refills 0, Tot. Refills 0, Maintenance, 04/04/21 10:58:00 EST, Route to Pharmacy Electronically, [facility] 1966, Partial fill upon patient request [...] Gastroparesis(Confirmed) Active H/O gastroesophageal reflux (GERD)(Confirmed) Active Headache(Confirmed) Active Pain of right heel(Confirmed) Active Hx laparoscopic cholecystectomy(Confirmed) 06/06/16 Active Obesity (BMI 30-39.9)(Confirmed) Active Moderate obstructive sleep apnea(Confirmed) Active Routine medical exam(Confirmed) Active PCOS (polycystic ovarian syndrome)(Confirmed) Active Severe obesity(Confirmed) Active Sleep apnea(Confirmed) Active Sleep apnea(Confirmed) Active Fatty liver(Confirmed) Active Social History Social History Type Response Smoking Status Never smoker; Tobacc o user in household: No entered on: 07/02/15 Sex
--- OUTSIDE RECORDS SUMMARY | 2024-02-22 11:39 | XMS_ITS | Continuity of Care Document ---
Author Organization [facility] Address Unknown Care Team Providers Care Re Dye Hand Name Role Phone Nanci Melendez MD Primary Care Physician Encounter [facility] Date(s): 03/15/21 - 04/14/21 [facility] Allergies, Adverse Reactions, Alerts [...] Vaccine 11/21/89 Recor ded 1Result Comment: [facility]# [id number] PT. TOLERATED INJ. WITHOUT COMPLICATIONS....CO 2Result Comment: [facility]# [id number] PT. TOLERATED INJ. WITHOUT COMPLICATIONS...CO 3Result Comment: [...] Gm, 10 Refills, Maintenance, 06/07/20 14:34:00 EST, [facility], 50, INHALE 2 PUFFS BY MOUTH 4 TIMES DAILY NEEDED FORWHEEZING, 161, cm, 02/10/20 14:26:00 EST, Height, 1... Start Date: 06/07/20 Status: Ordered albuterol 0.083% inhalation solution 3 mL = 2.5 mg, Inhalation, Every 6 hours, PRN for wheezing, # 25 each, 0 Refills, Maintenance, 04/04/21 12:33:00 EST, Solution, [facility], replaces previous Rx for albuterol-ipatropium solution, 162, cm, 03/10/21 14:17:00 EST, Height, 105.... Start Date: 04/04/21 Status: Ordered albuterol-ipratropium 3 mg-0.5 mg/3 ml inhalation solution 3 mL, Neb, 4 times a day, PRN shortness of breath, # 180 mL, 2 Refills, Maintenance, 04/04/21 8:55:00 EST, Solution, [facility], 3 mL Neb 4 times a day,PRN:shortness of breath, 162, cm, 03/10/21 14:17:00 EST, Height, 105.2, kg, 02/12/21 17:... Start Date: 04/04/21 Status: Ordered Apri 0.15 mg-0.03 mg oral tablet 1 tablet, By Mouth, Daily, start first tablet today, # 1 pack/packet, 3 Refills, Maintenance, 12/09/20 13:48:00 EDT, [facility], Partial [...] 0 Refills, Maintenance, 02/11/21 12:37:00 EST, ECCapsule, [facility], 163, cm, 01/01/21 10:10:00 EDT, Height Start Date: 02/11/21 Status: Ordered doxycycline hyclate 100 mg oral tablet 1 tablet = 100 mg, By Mouth, 2 times a day, # 28 tablet, 5 Refills, Maintenance, 12/31/20 8:23:00 EDT, [facility], Partial fill upon [...] each, Refills 5, Route to Pharmacy Electronically, [id number], [facility], 163, cm, 01/01/21 10:10:00 EDT, Height Start Date: 01/28/21 Status: Ordered Gonal-F 1050 units subcutaneous injection = 150 International_Units, Subcutaneous Injection, Daily, # 2 kit, 5 Refills, Maintenance, 218:23:00 EDT, [facility], Partial fill upon [...] tablet, 11 Refills, Maintenance, 03/16/21 11:27:00 EST, [facility], 162, c... Start Date: [...] 01/18/21 9:22:00 EDT, [facility], [facility] [...] 04/25/21 8:56:00 EST, 04/04/21 8:56:00 EST, Tablet, [facility], Pa... Start Date: 04/04/21 Stop Date: 04/25/21 Status: Ordered Pregnyl 51240 u injectable powder for injection = 1,000 units, Intramuscular, Once, For use as trigger shot. Use 3 mL of diluent to reconstitute powder. Draw and administer 0.3 mL of reconsituted pregnyl for total dose of 1000 units., # 1 kit, 5 Refills, Soft Stop, 12/31/20 8:24:00 EDT, [facility]... Start Date: 12/31/20 Status: Ordered Multivitamins By Mouth, Daily, 0 Refills, Maintenance, 06/05/18 11:27:06 EST Start Date: 06/05/18 Status: Ordered progesterone 50 mg/mL intramuscular solution 50mg/ml 1 ml (sesame oil), Intramuscular, Daily, # 30 mL, 5 Refills, Maintenance, 02/03/21 11:55:00EDT, [facility], Partial fill upon patient request if the prescription is for a schedule II opioid drug., 163, cm, 01/01/21 10:10:00 E... Start Date: 02/03/21 Status: Ordered Prometrium 200 mg oral capsule See Instructions, vaginally 3 times a day, # 90 tablet, 5 Refills, Maintenance, 12/31/20 8:22:00 EDT, [facility], Partial fill upon patient request if the prescription is for a schedule II opioid drug., 161, cm, 10/12/20 10:38:00 EDT,... Start Date: 12/31/20 Status: Ordered Provera 10 mg oral tablet 10 mg, 1, tablet, By Mouth, Daily, # 10 tablet, Refills 0, Tot. Refills 0, Maintenance, 04/04/21 10:58:00 EST, Route to Pharmacy Electronically, [facility], Partial fill upon patient request [...] 01/18/21 9:22:00 EDT, Route to Pharmacy Electronically, [facility], Partial fill upon patient [...] patch, 5 Refills, Maintenance, 12/31/20 8:23:00 EDT, [facility], Partial fill upon patient request if the prescription is for a schedule II opio... Start Date: 12/31/20 Status: Ordered yes yes, See Instructions, # 2 each, Refills 5, Tot. Refills 5, Maintenance, [place] Capped Insulin Syringe for lupron administration, 12/31/20 [...]
--- OUTSIDE RECORDS SUMMARY | 2024-02-22 11:39 | XMS_ITS | Continuity of Care Document ---
Author Organization [facility] Address [address], [address] [place] [address]- Care Team Providers Care Operator Catalyst Concentration Name Role Phone Al DIEGO, Nanci Segovia Primary Care Physician [phone] Encounter [facility] Date(s): 07/09/20 - 08/08/20 [facility] [address], [address] [place] [address] Allergies, Adverse Reactions, Alerts Substance Reaction Severity [...] Vaccine 11/21/89 Recor ded 1Result Comment: [facility]# [id number] PT. TOLERATED INJ. WITHOUT COMPLICATIONS....CO 2Result Comment: [facility]# [id number] PT. TOLERATED INJ. WITHOUT COMPLICATIONS...CO 3Result Comment: [04/06/2016] pt. tolerated inj. without complications...CO 4Result Comment: [04/14/2015] Measles mumps rubella titer Medications Advair Diskus 500 mcg-50 mcg inhalation powder 1, puffs, Inhalation, 2 times a day, # 1 each, Refills 12, Tot. Refills 12, Maintenance, 12/24/19 13:40:00 EDT, Route to Pharmacy Electronically, [id number], [facility] 1967, 161, cm, 06/12/19 8:56:00 EDT, Height, 106,... Start Date: 12/24/19 Status: Ordered Albuterol (Eqv-ProAir HFA) 90 mcg/inh inhalation aerosol 2 puffs, Inhalation, 4 times a day, PRN NEEDED FOR WHEEZING, # 18 Gm, 10 Refills, Maintenance, 06/07/20 14:34:00 EST, [facility], 50, INHALE 2 PUFFS BY MOUTH 4 TIMES DAILY NEEDED FORWHEEZING, 161, cm, 02/10/20 14:26:00 EST, Height, 1... Start Date: 06/07/20 Status: Ordered albuterol-ipratropium 3 mg-0.5 mg/3 ml inhalation solution 3 mL, Neb, 4 times a day, PRN shortness of breath, # 180 mL, 11 Refills, Maintenance, 06/18/20 9:36:00 EDT, Solution, [facility] 1967, 3 mL Neb 4 [...] 3 Refills, Maintenance, 12/24/19 13:41:00 EDT, ECCapsule, [facility] 1967, 161, cm, 06/12/19 8:56:00 [...] tablet, 3 Refills, Maintenance, 06/08/20 8:28:00 EST, [facility], 161, cm, 02/10/20 14:26:00 EST, [...] tablet, 11 Refills, Maintenance, 02/10/20 14:25:00 EST, [facility], 161, c... Start Date: [...] each, 11 Refills, Maintenance, 06/18/20 9:35:00 EDT, [facility], 161, cm, 219:18:00 EDT, [...] 07/09/20 16:28:00 EDT, Route to Pharmacy Electronically, [facility], Partial fill upon patient [...]
--- OUTSIDE RECORDS SUMMARY | 2024-02-22 11:39 | XMS_ITS | Continuity of Care Document ---
Author Organization [facility] Address [address] [place] [address]- Care Team Providers Care Cream Dipper Name Role Phone Nanci Melendez MD Primary Care Physician [phone] Encounter [facility] Date(s): 08/31/21 - 09/30/21 [facility] [address], [address]th [place] [address]- Allergies, Adverse Reactions, Alerts Substance Reaction Severity [...] 11/21/89 Recor ded 1Result Comment: [facility]# [id number] PT. TOLERATED INJ. WITHOUT COMPLICATIONS....CO 2Result Comment: [facility]# [id number] PT. TOLERATED INJ. WITHOUT COMPLICATIONS...CO 3Result Comment: [04/06/2016] pt. tolerated inj. without complications...CO 4Result Comment: [04/14/2015] Measles mumps rubella titer Medications Albuterol (Eqv-ProAir HFA) 90 mcg/inh inhalation aerosol See Instructions, INHALE 2 PUFFS BY MOUTH 4 TIMES DAILY NEEDED FOR WHEEZING, # 9 Gm, 6 Refills, 08/17/21 9:51:00 EDT, [facility], [facility], INHALE 2 PUFFS BY MOUTH 4 TIMES DAILY NEEDED FORWHEEZING, 162, cm, 08/03/21 16:59:00 EDT, Height, 1... Start Date: 08/17/21 Status: Ordered albuterol 0.083% inhalation solution 3 mL = 2.5 mg, Inhalation, Every 6 hours, PRN for wheezing, # 100 each, 5 Refills, Maintenance, 08/17/21 9:51:00 EDT, Solution, [facility], replaces previous Rx for albuterol-ipatropium [...] once daily, # 90 capsule, 1 Refills, [facility], 162, cm, 09/16/21 15:34:00 EDT, Height, 107.4, kg, 08/20/21 8:43:00 EDT, Dry Weight Start Date: 09/23/21 Status: Ordered famotidine 20 mg oral tablet See Instructions, OTC, Refills 0, Maintenance, 06/18/20 9:38:00 EDT, Instructions Replace Required Details, Partial fill upon patient request if the prescription is for a schedule II opioid drug. Start Date: 3/19/21 Status: Ordered ferrous sulfate 325 mg oral tablet 1 tablet = 325 mg, By Mouth, 2 times a day, # 60 tablet, 11 Refills, Maintenance, 08/18/21 16:40:00EDT, Tablet, [facility], Partial fill upon [...] 08/17/21 9:51:00 EDT, Route to Pharmacy Electronically, [id number], [facility], 162, cm, 08/03/21 16:59:00 [...] tablet, 11 Refills, Maintenance, 03/16/21 11:27:00 EST, [facility], 162, c... Start Date: [...] each, 11 Refills, Maintenance, 06/18/20 9:35:00 EDT, [facility], 161, cm, 219:18:00 [...]
--- OUTSIDE RECORDS SUMMARY | 2024-02-22 11:39 | XMS_ITS | Continuity of Care Document ---
Author Organization [facility] Address [address] [place] [address], [address] [place] [address]- Care Team Providers Care Stake Driver Name Role Phone Al DIEGO, Nanci Segovia Primary Care Physician Encounter [facility] Date(s): 02/02/22 - 02/09/22 [facility] [address], [address]th [place] [address]- Attending Physician: Philip Mosqueda MD Referring Physician: Estela Rosales MD Allergies, [...] [facility]# [id number] PT. TOLERATED INJ. WITHOUT COMPLICATIONS....CO 2Result Comment: [facility]# [id number] PT. TOLERATED INJ. WITHOUT COMPLICATIONS...CO 3Result Comment: [04/06/2016] pt. tolerated inj. without complications...CO 4Result Comment: [04/14/2015] Measles mumps rubella titer Medications acetaminophen 325 mg oral tablet 650 mg, By Mouth, Every 4 hours, PRN, not to exceed 4000 mg/day, # 60 tablet, Refills 0, Tot. Refills 0, Maintenance, Pain , Mild, 02/08/22 8:05:00 EST, Route to Pharmacy Electronically, [facility], Partial fill upon patient request if the... Start Date: 02/08/22 Status: Ordered Albuterol (Eqv-ProAir HFA) 90 mcg/inh inhalation aerosol See Instructions, INHALE 2 PUFFS BY MOUTH 4 TIMES DAILY NEEDED FOR WHEEZING, # 9 Gm, 6 Refills, 08/17/21 9:51:00 EDT, [facility] 1969, 25, INHALE 2 PUFFS BY MOUTH 4 TIMES DAILY NEEDED FORWHEEZING, 162, cm, 08/03/21 16:59:00 EDT, Height, 1... Start Date: 08/17/21 Status: Ordered albuterol 0.083% inhalation solution 3 mL = 2.5 mg, Inhalation, Every 6 hours, PRN for wheezing, # 100 each, 5 Refills, Maintenance, 08/17/21 9:51:00 EDT, Solution, [facility], replaces previous Rx for [...] once daily, # 90 capsule, 1 Refills, [facility], 162, cm, 09/16/21 15:34:00 [...] tablet, 11 Refills, Maintenance, 08/18/21 16:40:00EDT, Tablet, [facility], Partial fill upon patient [...] 08/17/21 9:51:00 EDT, Route to Pharmacy Electronically, [id number], [facility], 162, cm, 08/03/21 16:59:00 EDT, Height, 110, kg, 08/03/21 1... Start Date: 08/17/21 Status: Ordered ibuprofen 800 mg oral tablet 800 mg, 1, tablet, By Mouth, Every 8 hours, PRN, not to exceed 3200 mg/day with food or milk, # 40 tablet, Refills 0, Tot. Refills 0, Maintenance, Pain , Moderate, 02/08/22 8:05:00 EST, Route to Pharmacy Electronically, [facility] 1966, Partial... Start Date: 02/08/22 Status: Ordered magnesium oxide 250 mg oral [...] Team Personnel Name: Nanci Melendez MD Position: S Primary Care Physician Member Role: PCP Address: Address: [address] [place] [address]- Care Team Related Persons Name: RAFA RITCHIE Address: Address: [address] [place] [address] Name: DERRELL RITCHIE Address: home [address] [address] Name: DERRELL RITCHIE Address: home [address] [place] [address] Name: DERRELL RITCHIE Address: home [address] [place] [address] Name: SHEBA CANO Address: [address] [place] [address] Name: DAYANNA CANO Address: [address] [place] [address]
--- OUTSIDE RECORDS SUMMARY | 2024-02-22 11:39 | XMS_ITS | Continuity of Care Document ---
Author Organization [facility] Address [address], [address] [place] [address]- Care Team Providers Care Fruit Grading Supervisor Name Role Phone Al DIEGO, Nanci Segovia Primary Care Physician Encounter [facility] Date(s): 08/10/21 - 08/17/21 [facility] [address], [address] [place], [place] [address] Attending Physician: Anuradha Peters MD Referring Physician: Estela Rosales MD Allergies, [...] Virus Vaccine 11/21/89 Recor ded 1Result Comment: [facility]# [id number] PT. TOLERATED INJ. WITHOUT COMPLICATIONS....CO 2Result Comment: [facility]# [id number] PT. TOLERATED INJ. WITHOUT COMPLICATIONS...CO 3Result Comment: [...] kg, 02/12/21 17:08:00 EST, Dr... Start Date: 06/27/21 Status: Ordered Albuterol (Eqv-ProAir HFA) 90 mcg/inh inhalation aerosol See Instructions, INHALE 2 PUFFS BY MOUTH 4 TIMES DAILY NEEDED FOR WHEEZING, # 9 Gm, 6 Refills, 08/17/21 9:51:00 EDT, [facility], 25, INHALE 2 PUFFS BY MOUTH 4 TIMES DAILY NEEDED FORWHEEZING, 162, cm, 08/03/21 16:59:00 EDT, Height, 1... Start Date: 08/17/21 Status: Ordered Albuterol (Eqv-ProAir HFA) 90 mcg/inh inhalation aerosol 2 puffs, Inhalation, 4 times a day, PRN NEEDED FOR WHEEZING, # 18 Gm, 10 Refills, Maintenance, 06/07/20 14:34:00 EST, [facility], 50, INHALE 2 PUFFS BY MOUTH 4 TIMES DAILY NEEDED FORWHEEZING, 161, cm, 02/10/20 14:26:00 EST, Height, 1... Start Date: 06/07/20 Status: Ordered albuterol 0.083% inhalation solution 3 mL = 2.5 mg, Inhalation, Every 6 hours, PRN for wheezing, # 100 each, 5 Refills, Maintenance, 08/17/21 9:51:00 EDT, Solution, [facility], replaces previous Rx for albuterol-ipatropium [...] 0 Refills, Maintenance, 02/11/21 12:37:00 EST, ECCapsule, [facility], 163, cm, 01/01/21 10:10:00 EDT, Height Start Date: 02/11/21 Status: Ordered Endometrin 100 mg vaginal insert = 100 mg, Vaginally, 3 times a day, to add on day of transfer, # 90 supp, 5 Refills, Maintenance, 04/28/21 9:20:00 EST, [facility], Partial fill upon patient [...] 08/17/21 9:51:00 EDT, Route to Pharmacy Electronically, [id number], [facility], 162, cm, 08/03/21 [...] tablet, 11 Refills, Maintenance, 03/16/21 11:27:00 EST, [facility], 162, c... Start Date: [...] each, 11 Refills, Maintenance, 06/18/20 9:35:00 EDT, [facility], 161, cm, :18:00 EDT, Height, 106, kg, 09/11/18 13:37:00 EDT... Start Date: 06/18/20 Status: Ordered Multivitamins By Mouth, Daily, 0 Refills, Maintenance, 06/05/18 11:27:06 EST Start Date: 06/05/18 Status: Ordered progesterone 50 mg/mL intramuscular solution 100mg/ml 2 ml (sesame oil), Intramuscular, Daily, # 60 mL, 5 Refills, Maintenance, 06/27/21 16:29:00 EDT, [facility], Partial fill upon patient request if the prescription is for a schedule II opioid drug., 162, cm, 05/03/21 9:55:00 E... Start Date: 06/27/21 Status: Ordered Provera 10 mg oral tablet 10 mg, 1, tablet, By Mouth, Daily, # 10 tablet, Refills 0, Tot. Refills 0, Maintenance, 04/04/21 10:58:00 EST, Route to Pharmacy Electronically, [facility], Partial fill upon patient [...]
--- OUTSIDE RECORDS SUMMARY | 2024-02-22 11:39 | XMS_ITS | Continuity of Care Document ---
Author Organization [facility] e [facility] Address [address] [facility], 4t h [address] [place] [id number]- Care Team Providers Care Psychiatric Nursing Aide Name Role Phone Nanci Melendez MD Primary Care Physician [phone] Encounter [facility] Date(s): 09/10/20 - 09/17/20 [facility] Reproductive [facility] [address] [facility], 4th Floor [address] [place] [id number] Attending Physician: Not on Staff, Attending MD Referring Physician: Nanci Melendez MD Allergies, Adverse Reactions, Alerts Substance Reaction [...] Vaccine 11/21/89 Recor ded 1Result Comment: [facility]# [id number] PT. TOLERATED INJ. WITHOUT COMPLICATIONS....CO 2Result Comment: [facility]# [id number] PT. TOLERATED INJ. WITHOUT COMPLICATIONS...CO 3Result Comment: [04/06/2016] pt. tolerated inj. without complications...CO 4Result Comment: [04/14/2015] Measles mumps rubella titer Medications Advair Diskus 500 mcg-50 mcg inhalation powder 1, puffs, Inhalation, 2 times a day, # 1 each, Refills 12, Tot. Refills 12, Maintenance, 12/24/19 13:40:00 EDT, Route to Pharmacy Electronically, [id number], [facility] 1967, 161, cm, 06/12/19 8:56:00 EDT, Height, 106,... Start Date: 12/24/19 Status: Ordered Albuterol (Eqv-ProAir HFA) 90 mcg/inh inhalation aerosol 2 puffs, Inhalation, 4 times a day, PRN NEEDED FOR WHEEZING, # 18 Gm, 10 Refills, Maintenance, 06/07/20 14:34:00 EST, [facility] 1967, 50, INHALE 2 PUFFS BY MOUTH 4 TIMES DAILY NEEDED FORWHEEZING, 161, cm, 02/10/20 14:26:00 EST, Height, 1... Start Date: 06/07/20 Status: Ordered albuterol-ipratropium 3 mg-0.5 mg/3 ml inhalation solution 3 mL, Neb, 4 times a day, PRN shortness of breath, # 180 mL, 11 Refills, Maintenance, 06/18/20 9:36:00 EDT, Solution, [facility] 1967, 3 mL Neb 4 times a day,PRN:shortness of breath, 161, cm, 06/18/20 9:18:00 EDT, Height, 106, kg, 09/11/18 13:37... Start Date: 06/18/20 Status: Ordered Apri 0.15 mg-0.03 mg oral tablet 1 tablet, By Mouth, Daily, start first tablet today, # 1 pack/packet, 3 Refills, Maintenance, 09/10/20 10:08:00 EDT, [facility] 1967, Partial fill upon patient request if the prescription is for a schedule II opioid drug., 1 tablet By Mouth Kemi... Start Date: 09/10/20 Status: Ordered Benadryl 25 mg oral capsule See Instructions, 2 capsule By Mouth PRN, 0 Refills, Maintenance, 07/24/18 11:01:32 EDT Start Date: 07/24/18 Status: Ordered Dexilant 60 mg oral delayed release capsule 1 capsule = 60 mg, By Mouth, Daily, # 90 capsule, 3 Refills, Maintenance, 12/24/19 13:41:00 EDT, ECCapsule, [facility] 1967, 161, cm, 06/12/19 8:56:00 [...] 04/10/16 10:01:51 Start Date: 04/10/16 Status: Ordered metFORMIN 500 mg oral tablet, extended release See Instructions, take 1 tablet po w/dinner x1 wk, then increase to 2 tablets x 1-2 wks, then increase to 3 tablets 1-2 wks,then 4 tabs with dinner every day., # 120 tablet, 11 Refills, Maintenance, 02/10/20 14:25:00 EST, [facility], 161, c... Start Date: [...] each, 11 Refills, Maintenance, 06/18/20 9:35:00 EDT, [facility], 161, cm, :18:00 EDT, [...] 07/09/20 16:28:00 EDT, Route to Pharmacy Electronically, [facility] 1967, Partial fill upon patient [...]
--- OUTSIDE RECORDS SUMMARY | 2024-02-22 11:39 | XMS_ITS | Continuity of Care Document ---
Author Organization [facility] Address [address] [facility], 4t [place] [address]- Care Team Providers Care Broom Builder Name Role Phone Nanci Melendez MD Primary Care Physician Encounter [facility] Date(s): 01/27/22 - 02/26/22 [facility] [address] [facility], 4th [employer], [place] [address] Allergies, Adverse Reactions, Alerts Substance [...] 1Result Comment: [facility]# [id number] PT. TOLERATED INJ. WITHOUT COMPLICATIONS....CO 2Result Comment: [facility]# [id number] PT. TOLERATED INJ. WITHOUT COMPLICATIONS...CO 3Result Comment: [04/06/2016] pt. tolerated inj. without complications...CO 4Result Comment: [04/14/2015] Measles mumps rubella titer Medications acetaminophen 325 mg oral tablet 650 mg, By Mouth, Every 4 hours, PRN, not to exceed 4000 mg/day, # 60 tablet, Refills 0, Tot. Refills 0, Maintenance, Pain , Mild, 02/08/22 8:05:00 EST, Route to Pharmacy Electronically, [facility] 1966, Partial fill upon patient request if the... Start Date: 02/08/22 Status: Ordered Albuterol (Eqv-ProAir HFA) 90 mcg/inh inhalation aerosol See Instructions, INHALE 2 PUFFS BY MOUTH 4 TIMES DAILY NEEDED FOR WHEEZING, # 9 Gm, 6 Refills, 08/17/21 9:51:00 EDT, [facility], 25, INHALE 2 PUFFS BY MOUTH 4 TIMES DAILY NEEDED FORWHEEZING, 162, cm, 08/03/21 16:59:00 EDT, Height, 1... Start Date: 08/17/21 Status: Ordered albuterol 0.083% inhalation solution 3 mL = 2.5 mg, Inhalation, Every 6 hours, PRN for wheezing, # 100 each, 5 Refills, Maintenance, 08/17/21 9:51:00 EDT, Solution, [facility], replaces previous Rx for albuterol-ipatropium [...] once daily, # 90 capsule, 1 Refills, [facility], 162, cm, 09/16/21 15:34:00 EDT, [...] tablet, 11 Refills, Maintenance, 08/18/21 16:40:00EDT, Tablet, [facility], Partial fill upon [...] 08/17/21 9:51:00 EDT, Route to Pharmacy Electronically, [id number], [facility], 162, cm, 08/03/21 16:59:00 EDT, Height, 110, kg, 08/03/21 1... Start Date: 08/17/21 Status: Ordered ibuprofen 800 mg oral tablet 800 mg, 1, tablet, By Mouth, Every 8 hours, PRN, not to exceed 3200 mg/day with food or milk, # 40 tablet, Refills 0, Tot. Refills 0, Maintenance, Pain , Moderate, 02/08/22 8:05:00 EST, Route to Pharmacy Electronically, [facility], Partial... Start Date: 02/08/22 Status: Ordered magnesium [...] Team Personnel Name: Nanci Melendez MD Position: [facility] Primary Care Physician Member Role: PCP Address: Address: [address] [place] [address]- Care Team Related Persons Name: SEAN RITCHIE Address: [address] Address: home [address] [place] [address] Name: DERRELL RITCHIE Address: home [address] [facility] [address] [place] [address] Name: DERRELL RITCHIE Address: home [address] [place] [address] [address] [place] [address] Name: DERRELL RITCHIE Address: home [address] [facility] [address] [place] [address] Name: SHEBA CANO Address: home [address] [place] [address] Name: DAYANNA CANO Address: home [address] [place] [address]
--- OUTSIDE RECORDS SUMMARY | 2024-02-22 11:39 | XMS_ITS | Continuity of Care Document ---
Author Organization [facility] ter Address [address] [place] [address]- Care Team Providers Care Fast Food Supervisor Name Role Phone Al DIEGO, Nanci Segovia Primary Care Physician Encounter [facility] Date(s): 05/10/22 - 06/21/[address] [address] Attending Physician: Adela Sorto MD Admitting Physician: Adela Sorto MD Referring Physician: Adela Sorto MD Allergies, Adverse Reactions, [...] Comment: [facility]# [id number] PT. TOLERATED INJ. WITHOUT COMPLICATIONS....CO 2Result Comment: [facility]# [id number] PT. TOLERATED INJ. WITHOUT COMPLICATIONS...CO 3Result Comment: [04/06/2016] pt. tolerated inj. without complications...CO 4Result Comment: [04/14/2015] Measles mumps rubella titer Medications acetaminophen 325 mg oral tablet 650 mg, By Mouth, Every 4 hours, PRN, not to exceed 4000 mg/day, # 60 tablet, Refills 0, Tot. Refills 0, Maintenance, Pain , Mild, 02/08/22 8:05:00 EST, Route to Pharmacy Electronically, [facility] 1967, Partial fill upon patient request if the... Start Date: 02/08/22 Status: Ordered Albuterol (Eqv-ProAir HFA) 90 mcg/inh inhalation aerosol See Instructions, INHALE 2 PUFFS BY MOUTH 4 TIMES DAILY NEEDED FOR WHEEZING, # 9 Gm, 6 Refills, 08/17/21 9:51:00 EDT, [facility], 25, INHALE 2 PUFFS BY MOUTH 4 TIMES DAILY NEEDED FORWHEEZING, 162, cm, 08/03/21 16:59:00 EDT, Height, 1... Start Date: 08/17/21 Status: Ordered albuterol 0.083% inhalation solution 3 mL = 2.5 mg, Inhalation, Every 6 hours, PRN for wheezing, # 100 each, 5 Refills, Maintenance, 06/19/22 15:15:00 EDT, Solution, [id number], replaces previous Rx for albuterol-ipatropium solution, 163, cm, 05/01/22 14:15:00 EST, Height, 128.2,... Start Date: 06/19/22 Status: Ordered Benadryl 25 mg oral capsule See Instructions, 2 capsule By Mouth PRN, 0 Refills, Maintenance, 07/24/18 11:01:32 EDT Start Date: 07/24/18 Status: Ordered Carafate 1 gm/10 ml oral suspension 10 mL = 1 Gm, By Mouth, 3 times a day before meals and bedtime, # 560 mL, 0 Refills, Maintenance, 03/17/22 15:45:00 EST, [facility], Partial fill upon patient request if the prescription is for a schedule II opioid drug., 163, cm, 03/17/22... Start Date: 03/17/22 Stop Date: 03/31/22 Status: Ordered Dexilant 60 mg oral delayed release capsule See Instructions, Take 1 capsule by mouth once daily, # 90 capsule, 0 Refills, 03/14/22 14:26:00 EST, [facility], 163, cm, 02/27/22 9:06:00 EST, Height, 128.2, kg, 02/05/22 12:22:00 EST, Dry Weight Start Date: 03/14/22 Status: Ordered Diflucan 150 mg oral tablet 1 tablet = 150 mg, By Mouth, Once, # 1 tablet, 0 Refills, Soft Stop, 03/01/22 15:59:00 EST, Tablet,[email or web address], Partial fill upon patient request [...] tablet, 11 Refills, Maintenance, 08/18/21 16:40:00EDT, Tablet, [facility], Partial fill upon patient request [...] 05/04/22 9:46:00 EST, Route to Pharmacy Electronically, [id number], [facility], 163, cm, 05/01/22 14:15:00 EST, Height, 128.2, kg, 02/05/22... Start Date: 05/04/22 Status: Ordered ibuprofen 800 mg oral tablet 800 mg, 1, tablet, By Mouth, Every 8 hours, PRN, not to exceed 3200 mg/day with food or milk, # 40 tablet, Refills 0, Tot. Refills 0, Maintenance, Pain , Moderate, 02/08/22 8:05:00 EST, Route to Pharmacy Electronically, [facility], Partial... Start Date: 02/08/22 Status: [...] Ordered norethindrone 0.35 mg oral tablet 1 tablet = 0.35 mg, By Mouth, Daily, # 84 tablet, 0 Refills, Maintenance, 05/19/22 11:38:00 EST, Tablet, [id number], Partial fill upon patient request if the prescription is for a schedule IIopioid drug., 163, cm, 05/01/22 14:15:00 EST, Heigh... Start Date: 05/19/22 Status: Ordered ondansetron 4 mg oral tablet See Instructions, TAKE 1 TABLET BY MOUTH EVERY 8 HOURS NEEDED FOR NAUSEA AND VOMITING FOR 5 DAYS, # 15 each, 11 Refills, Maintenance, 06/19/22 15:15:00 EDT, [facility] #[id number], 163, cm, 05/01/22 14:15:00 EST, Height, 128.2, kg, 02/05/22 12:22:00 ES... Start Date: 06/19/22 Status: Ordered Multivitamins By Mouth, Daily, 0 Refills, Maintenance, 06/05/18 11:27:06 EST Start Date: 06/05/18 Status: Ordered Ventolin HFA 108 mcg/inh inhalation aerosol with adapter 2 puffs, Inhalation, Every 4 hours, PRN for wheezing, # 8 Gm, 5 Refills, Maintenance, 06/19/22 15:16:00 EDT, Aerosol, [facility] #[id number], Partial fill upon patient request if the prescription is for a schedule II opioid drug., 163, cm, 05/01/22 14:15:... Start Date: 06/19/22 Status: Ordered Vitamin B12 0 Refills, Maintenance, [...] Team Personnel Name: Adela Sorto MD Position: [facility] PREMIUM AUDITOR MD Member Role: Lifetime PREMIUM AUDITOR Physician Address: Address: [address] [facility], [address] [place] [address]- Name: Nanci Melendez MD Position: [facility] Primary Care Physician Member Role: PCP Address: Address: [address] [place] [address]- Care Team Related Persons Name: RTICHIESEAN WILKES Address: [address] Address: home [address] [place] [address] Name: DERRELL RITCHIE Address: home [address] [facility] [address] [place] [address] Name: DERRELL RITCHIE Address: home [address] [facility] [address] [place] [address] Name: DERRELL RITCHIE Address: home [address] [facility] [address] [place] [address] Name: SHEBA CANO Address: home [address] [place] [address] Name: DAYANNA CANO Address: home [address] [place] [address]
--- OUTSIDE RECORDS SUMMARY | 2024-02-22 11:39 | XMS_ITS | Continuity of Care Document ---
Author Organization [facility] Address [address] [facility], 4t [place] [address]- Care Team Providers Care Hearing Impaired Itinerant Teacher Name Role Phone Al DIEGO, Nanci Segovia Primary Care Physician Encounter [facility] Date(s): 06/27/21 - 07/27/21 [facility] [address] [facility], 4th Floor [place], [place] [address] Allergies, Adverse Reactions, Alerts Substance [...] ded 1Result Comment: [facility]# [id number] PT. TOLERATED INJ. WITHOUT COMPLICATIONS....CO 2Result Comment: [facility]# [id number] PT. TOLERATED INJ. WITHOUT COMPLICATIONS...CO 3Result Comment: [...] Gm, 10 Refills, Maintenance, 06/07/20 14:34:00 EST, [facility], 50, INHALE 2 PUFFS BY MOUTH 4 TIMES DAILY NEEDED FORWHEEZING, 161, cm, 02/10/20 14:26:00 EST, Height, 1... Start Date: 06/07/20 Status: Ordered Albuterol (Eqv-ProAir HFA) 90 mcg/inh inhalation aerosol See Instructions, INHALE 2 PUFFS BY MOUTH 4 TIMES DAILY NEEDED FOR WHEEZING, # 9 Gm, 6 Refills, [facility], 25, INHALE 2 PUFFS BY MOUTH 4 TIMES DAILY NEEDED FOR WHEEZING, 162, cm, 05/03/21 9:55:00 EST, Height, 105.2, kg, 02/12/21 17:0... Start Date: 06/24/21 Status: Ordered albuterol 0.083% inhalation solution 3 mL = 2.5 mg, Inhalation, Every 6 hours, PRN for wheezing, # 100 each, 5 Refills, Maintenance, 06/24/21 12:33:00 EDT, Solution, [facility], replaces previous Rx for albuterol-ipatropium [...] 0 Refills, Maintenance, 02/11/21 12:37:00 EST, ECCapsule, [facility], 163, cm, 01/01/21 10:10:00 EDT, Height Start Date: 02/11/21 Status: Ordered Endometrin 100 mg vaginal insert = 100 mg, Vaginally, 3 times a day, to add on day of transfer, # 90 supp, 5 Refills, Maintenance, 04/28/21 9:20:00 EST, [facility], Partial fill upon [...] each, Refills 5, Route to Pharmacy Electronically, [id number], [facility], 163, cm, 01/01/21 10:10:00 EDT, Height Start Date: 01/28/21 Status: Ordered Macrobid macrocrystals-monohydrate 100 mg oral capsule 1 capsule = 100 mg, By Mouth, 2 times a day, for 7 days, # 14 capsule, 0 Refills, Acute 07/31/21 11:15:00 EDT, 07/24/21 11:15:00 EDT, Capsule, [facility], Partial fill upon patient requestif [...] tablet, 11 Refills, Maintenance, 03/16/21 11:27:00 EST, [facility], 162, c... Start Date: [...] each, 11 Refills, Maintenance, 06/18/20 9:35:00 EDT, [facility], 161, cm, 219:18:00 EDT, Height, 106, kg, 09/11/18 13:37:00 EDT... Start Date: 06/18/20 Status: Ordered Multivitamins By Mouth, Daily, 0 Refills, Maintenance, 06/05/18 11:27:06 EST Start Date: 06/05/18 Status: Ordered progesterone 50 mg/mL intramuscular solution 100mg/ml 2 ml (sesame oil), Intramuscular, Daily, # 60 mL, 5 Refills, Maintenance, 06/27/21 16:29:00 EDT, [facility], Partial fill upon patient request if the prescription is for a schedule II opioid drug., 162, cm, 05/03/21 9:55:00 E... Start Date: 06/27/21 Status: Ordered Provera 10 mg oral tablet 10 mg, 1, tablet, By Mouth, Daily, # 10 tablet, Refills 0, Tot. Refills 0, Maintenance, 04/04/21 10:58:00 EST, Route to Pharmacy Electronically, [facility], Partial fill upon patient [...]
--- OUTSIDE RECORDS SUMMARY | 2024-02-22 11:39 | XMS_ITS | Continuity of Care Document ---
Author Organization [facility] e [facility] Address [address] [facility], 4t h Floor [address] [place] [address]- Care Team Providers Care Sap Fico Business Analyst Name Role Phone Nanci Melendez MD Primary Care Physician Encounter [facility] Date(s): 11/01/22 - 12/01/22 [facility] [address] [facility], 4th [address] [place] [address]- Allergies, Adverse Reactions, Alerts Substance Reaction Severity [...] Virus Vaccine 11/21/89 Recor ded 1Result Comment: [facility]# [id number] PT. TOLERATED INJ. WITHOUT COMPLICATIONS....CO 2Result Comment: [facility]# [id number] PT. TOLERATED INJ. WITHOUT COMPLICATIONS...CO 3Result Comment: [04/06/2016] pt. tolerated inj. without complications...CO 4Result Comment: [04/14/2015] Measles mumps rubella titer Medications acetaminophen 325 mg oral tablet 650 mg, By Mouth, Every 4 hours, PRN, not to exceed 4000 mg/day, # 60 tablet, Refills 0, Tot. Refills 0, Maintenance, Pain , Mild, 02/08/22 8:05:00 EST, Route to Pharmacy Electronically, [facility], Partial fill upon patient request if the... Start Date: 02/08/22 Status: Ordered Albuterol (Eqv-ProAir HFA) 90 mcg/inh inhalation aerosol See Instructions, INHALE 2 PUFFS BY MOUTH 4 TIMES DAILY NEEDED FOR WHEEZING, # 9 Gm, 6 Refills, 08/17/21 9:51:00 EDT, [facility], 25, INHALE 2 PUFFS BY MOUTH 4 TIMES DAILY NEEDED FORWHEEZING, 162, cm, 08/03/21 16:59:00 EDT, Height, 1... Start Date: 08/17/21 Status: Ordered albuterol 0.083% inhalation solution 3 mL = 2.5 mg, Inhalation, Every 6 hours, PRN for wheezing, # 100 each, 5 Refills, Maintenance, 06/19/22 15:15:00 EDT, Solution, [id number], replaces previous Rx for albuterol-ipatropium solution, [...] mL, 0 Refills, Maintenance, 03/17/22 15:45:00 EST, [facility], Partial fill upon patient request if the prescription is for a schedule II opioid drug., 163, cm, 03/17/22... Start Date: 03/17/22 Stop Date: 03/31/22 Status: Ordered Dexilant 60 mg oral delayed release capsule See Instructions, Take 1 capsule by mouth once daily, # 90 capsule, 0 Refills, 03/14/22 14:26:00 EST, [facility], 163, cm, 02/27/22 9:06:00 EST, Height, 128.2, kg, 02/05/22 12:22:00 EST, Dry Weight Start Date: 03/14/22 Status: Ordered Diflucan 150 mg oral tablet 1 tablet = 150 mg, By Mouth, Once, # 1 tablet, 0 Refills, Soft Stop, 03/01/22 15:59:00 EST, [facility], Partial fill upon patient request [...] tablet, 11 Refills, Maintenance, 08/18/21 16:40:00EDT, Tablet, [facility], Partial fill upon patient [...] 05/04/22 9:46:00 EST, Route to Pharmacy Electronically, [id number], [facility], 163, cm, 05/01/22 14:15:00 EST, Height, 128.2, kg, 02/05/22... Start Date: 05/04/22 Status: Ordered ibuprofen 800 mg oral tablet 800 mg, 1, tablet, By Mouth, Every 8 hours, PRN, not to exceed 3200 mg/day with food or milk, # 40 tablet, Refills 0, Tot. Refills 0, Maintenance, Pain , Moderate, 02/08/22 8:05:00 EST, Route to Pharmacy Electronically, [facility], Partial... Start Date: [...] tablet, 5 Refills, Maintenance, 08/16/22 9:41:00 EDT, [id number], 163, cm, 05/01/22 14:15:00 EST, Height, 128.2, kg, 02/05/22 12:22:00 EST, Dry Weight Start Date: 08/16/22 Status: Ordered ondansetron 4 mg oral tablet See Instructions, TAKE 1 TABLET BY MOUTH EVERY 8 HOURS NEEDED FOR NAUSEA AND VOMITING FOR 5 DAYS, # 15 each, 11 Refills, Maintenance, 06/19/22 15:15:00 EDT, [id number], 163, cm, 05/01/22 14:15:00 EST, Height, 128.2, kg, 02/05/22 12:22:00 ES... Start Date: 06/19/22 Status: Ordered Multivitamins By Mouth, Daily, 0 Refills, Maintenance, 06/05/18 11:27:06 EST Start Date: 06/05/18 Status: Ordered Ventolin HFA 108 mcg/inh inhalation aerosol with adapter 2 puffs, Inhalation, Every 4 hours, PRN for wheezing, # 8 Gm, 5 Refills, Maintenance, 06/19/22 15:16:00 EDT, Aerosol, [id number], Partial fill upon patient request if [...] Team Personnel Name: Adela Sorto MD Position: S BUSINESS MACHINES TEACHER Member Role: Lifetime BUSINESS MACHINES TEACHER Physician Address: Address: [address] [place] [address], [address] [facility] [address] Name: Nanci Melendez MD Position: [facility] Physician - Primary Care Member Role: PCP Address: Address: [address] [place] [address]- [place] Care Team Related Persons Name: SEAN RITCHIE Address: [address] Address: home [address] [place] [address] Name: DERRELL RITCHIE Address: home [address] [place] [address] Name: ERMA DERRELL Address: home [address] [facility] [address] [place] [address] Name: RITCHIE DERRELL Address: home [address] [facility] [address] [place] [address] Name: SHEBA CANO Address: home [address] [place] [address] Name: DAYANNA CANO Address: home [address] [place] [address]
--- OUTSIDE RECORDS SUMMARY | 2024-02-22 11:39 | XMS_ITS | Continuity of Care Document ---
Author Organization [facility] Address [address] [place] [address]- Care Team Providers Care Link Trainer Name Role Phone Nanci Melendez MD Primary Care Physician Encounter [facility] Date(s): 01/01/23 - 01/08/23 [facility] [address] [place] [address]- Encounter Diagnosis Asthma exacerbation(Discharge Diagnosis) - 01/01/23 Attending Physician: Flavia Rey MD Referring Physician: Nanci Melendez MD Allergies, [...] Recor ded 1Result Comment: [facility]# [id number] PT. TOLERATED INJ. WITHOUT COMPLICATIONS....CO 2Result Comment: [facility]# [id number] PT. TOLERATED INJ. WITHOUT COMPLICATIONS...CO 3Result Comment: [04/06/2016] pt. tolerated inj. without complications...CO 4Result Comment: [04/14/2015] Measles mumps rubella titer Medications acetaminophen 325 mg oral tablet 650 mg, By Mouth, Every 4 hours, PRN, not to exceed 4000 mg/day, # 60 tablet, Refills 0, Tot. Refills 0, Maintenance, Pain , Mild, 02/08/22 8:05:00 EST, Route to Pharmacy Electronically, [facility], Partial fill upon patient request if the... Start Date: 02/08/22 Status: Ordered Albuterol (Eqv-ProAir HFA) 90 mcg/inh inhalation aerosol See Instructions, INHALE 2 PUFFS BY MOUTH 4 TIMES DAILY NEEDED FOR WHEEZING, # 9 Gm, 6 Refills, 08/17/21 9:51:00 EDT, [facility], 25, INHALE 2 PUFFS [...] mL, 0 Refills, Maintenance, 03/17/22 15:45:00 EST, [facility], Partial fill upon patient request if the prescription is for a schedule II opioid drug., 163, cm, 03/17/22... Start Date: 03/17/22 Stop Date: 03/31/22 Status: Ordered Dexilant 60 mg oral delayed release capsule See Instructions, Take 1 capsule by mouth once daily, # 90 capsule, 0 Refills, 03/14/22 14:26:00 EST, [facility], 163, cm, 02/27/22 9:06:00 EST, Height, 128.2, kg, 02/05/22 12:22:00 EST, Dry Weight Start Date: 03/14/22 Status: Ordered Diflucan 150 mg oral tablet 1 tablet = 150 mg, By Mouth, Once, # 1 tablet, 0 Refills, Soft Stop, 03/01/22 15:59:00 EST, Tablet,[facility], Partial fill upon patient [...] tablet, 11 Refills, Maintenance, 08/18/21 16:40:00EDT, Tablet, [facility], Partial fill upon patient request [...] 05/04/22 9:46:00 EST, Route to Pharmacy Electronically, [id number], [facility], 163, cm, 05/01/22 14:15:00 EST, Height, 128.2, kg, 02/05/22... Start Date: 05/04/22 Status: Ordered ibuprofen 800 mg oral tablet 800 mg, 1, tablet, By Mouth, Every 8 hours, PRN, not to exceed 3200 mg/day with food or milk, # 40 tablet, Refills 0, Tot. Refills 0, Maintenance, Pain , Moderate, 02/08/22 8:05:00 EST, Route to Pharmacy Electronically, [facility], Partial... Start Date: 02/08/22 [...] tablet, 5 Refills, Maintenance, 08/16/22 9:41:00 EDT, [id number], 163, cm, 05/01/22 14:15:00 EST, Height, 128.2, [...] Maintenance, 06/19/22 15:16:00 EDT, Aerosol, [id number], Partial fill upon patient request if [...] apnea Confirmed Active Fatty liver Confirmed Active Diagnosis Diagnosis Type Effective Dates Health Status Clinical Service Informant Asthma exacerbation Discharge Diagnosis 01/01/23 Social History Social History Type Response Smoking Status Never smoker; Tobacc o user in household: No entered on: 07/02/15 Sex Patient Care team information Care Team Personnel Name: Adela Sorto MD Position: [facility] MARBLE SUPERVISOR MD Member Role: Lifetime MARBLE SUPERVISOR Physician Address: Address: [address], [facility] [address] [facility] [place] [address]- Name: Nanci Melendez MD Position: [facility] Physician - Primary Care Member Role: PCP Address: Address: [address] [place] [address]- Care Team Related Persons Name: SEAN RITCHIE Address: [address] Address: home [address] [place] [address] Name: DERRELL RITCHIE Address: home [address] [place] [address] Name: DERRELL RITCHIE Address: home [address] [place] [address] Name: DERRELL RITCHIE Address: home [address] [place] [address] Name: SHEBA CANO Address: home [address] [place] [address] Name: DAYANNA CANO Address: home [address] [place] [address]
--- OUTSIDE RECORDS SUMMARY | 2024-02-22 11:39 | XMS_ITS | Continuity of Care Document ---
Author Organization [facility] Address [address] [place] [address]- Care Team Providers Care Floor Sanding Machine Operator Name Role Phone Al DIEGO, Nanci Segovia Primary Care Physician Encounter [facility] Date(s): 09/09/20 - 10/09/20 [facility] [address] [place], [place] [address] Allergies, Adverse Reactions, [...] Virus Vaccine 11/21/89 Recor ded 1Result Comment: [facility]# [id number] PT. TOLERATED INJ. WITHOUT COMPLICATIONS....CO 2Result Comment: [facility]# [id number] PT. TOLERATED INJ. WITHOUT COMPLICATIONS...CO 3Result Comment: [04/06/2016] pt. tolerated inj. without complications...CO 4Result Comment: [04/14/2015] Measles mumps rubella titer Medications Advair Diskus 500 mcg-50 mcg inhalation powder 1, puffs, Inhalation, 2 times a day, # 1 each, Refills 12, Tot. Refills 12, Maintenance, 12/24/19 13:40:00 EDT, Route to Pharmacy Electronically, [id number], [facility], 161, cm, 06/12/19 8:56:00 EDT, Height, 106,... Start Date: 12/24/19 Status: Ordered Albuterol (Eqv-ProAir HFA) 90 mcg/inh inhalation aerosol 2 puffs, Inhalation, 4 times a day, PRN NEEDED FOR WHEEZING, # 18 Gm, 10 Refills, Maintenance, 06/07/20 14:34:00 EST, [facility], 50, INHALE 2 PUFFS BY MOUTH 4 TIMES DAILY NEEDED FORWHEEZING, 161, cm, 02/10/20 14:26:00 EST, Height, 1... Start Date: 06/07/20 Status: Ordered albuterol-ipratropium 3 mg-0.5 mg/3 ml inhalation solution 3 mL, Neb, 4 times a day, PRN shortness of breath, # 180 mL, 11 Refills, Maintenance, 06/18/20 9:36:00 EDT, Solution, [facility], 3 mL Neb 4 times a day,PRN:shortness of breath, 161, cm, 06/18/20 9:18:00 EDT, Height, 106, kg, 09/11/18 13:37... Start Date: 06/18/20 Status: Ordered Apri 0.15 mg-0.03 mg oral tablet 1 tablet, By Mouth, Daily, start first tablet today, # 1 pack/packet, 3 Refills, Maintenance, 09/10/20 10:08:00 EDT, [facility], Partial fill upon patient [...] 3 Refills, Maintenance, 12/24/19 13:41:00 EDT, ECCapsule, [facility], 161, cm, 06/12/19 8:56:00 [...] tablet, 11 Refills, Maintenance, 02/10/20 14:25:00 EST, [facility], 161, c... Start Date: [...] each, 11 Refills, Maintenance, 06/18/20 9:35:00 EDT, [facility], 161, cm, 03/19/219:18:00 EDT, Height, [...] 07/09/20 16:28:00 EDT, Route to Pharmacy Electronically, [facility], Partial fill upon patient [...]
--- OUTSIDE RECORDS SUMMARY | 2024-02-22 11:39 | XMS_ITS | Continuity of Care Document ---
Author Organization [facility] Address [address] [place] [address]- Care Team Providers Care Rn Child Name Role Phone Al DIEGO, Nanci Segovia Primary Care Physician [phone] Encounter [facility] Date(s): 09/21/22 - 10/21/22 [facility] [address] [place] [address]- Allergies, Adverse Reactions, Alerts Substance Reaction Severity [...] Virus Vaccine 11/21/89 Recor ded 1Result Comment: [facility]# [id number] PT. TOLERATED INJ. WITHOUT COMPLICATIONS....CO 2Result Comment: [facility]# [id number] PT. TOLERATED INJ. WITHOUT COMPLICATIONS...CO 3Result Comment: [04/06/2016] pt. tolerated inj. without complications...CO 4Result Comment: [04/14/2015] Measles mumps rubella titer Medications acetaminophen 325 mg oral tablet 650 mg, By Mouth, Every 4 hours, PRN, not to exceed 4000 mg/day, # 60 tablet, Refills 0, Tot. Refills 0, Maintenance, Pain , Mild, 02/08/22 8:05:00 EST, Route to Pharmacy Electronically, [facility], Partial fill upon patient request if the... Start Date: 02/08/22 Status: Ordered Albuterol (Eqv-ProAir HFA) 90 mcg/inh inhalation aerosol See Instructions, INHALE 2 PUFFS BY MOUTH 4 TIMES DAILY NEEDED FOR WHEEZING, # 9 Gm, 6 Refills, 08/17/21 9:51:00 EDT, [facility], 25, INHALE 2 PUFFS BY MOUTH 4 TIMES DAILY NEEDED FORWHEEZING, 162, cm, 08/03/21 16:59:00 EDT, Height, 1... Start Date: 08/17/21 Status: Ordered albuterol 0.083% inhalation solution 3 mL = 2.5 mg, Inhalation, Every 6 hours, PRN for wheezing, # 100 each, 5 Refills, Maintenance, 06/19/22 15:15:00 EDT, Solution, [facility]/pharmacy #[id number], replaces previous Rx for albuterol-ipatropium solution, [...] mL, 0 Refills, Maintenance, 03/17/22 15:45:00 EST, [facility], Partial [...] 0 Refills, Soft Stop, 03/01/22 15:59:00 EST, Tablet,[facility], Partial fill upon [...] 16:40:00EDT, Tablet, [facility], Partial fill upon [...] 05/04/22 9:46:00 EST, Route to Pharmacy Electronically, [id number], [facility], 163, cm, 05/01/22 14:15:00 EST, Height, 128.2, kg, 02/05/22... Start Date: 05/04/22 Status: Ordered ibuprofen 800 mg oral tablet 800 mg, 1, tablet, By Mouth, Every 8 hours, PRN, not to exceed 3200 mg/day with food or milk, # 40 tablet, Refills 0, Tot. Refills 0, Maintenance, Pain , Moderate, 02/08/22 8:05:00 EST, Route to Pharmacy Electronically, [facility], Partial... Start Date: [...] tablet, 5 Refills, Maintenance, 08/16/22 9:41:00 EDT, [id number], 163, cm, 05/01/22 14:15:00 EST, Height, 128.2, kg, 02/05/22 12:22:00 EST, Dry Weight Start Date: 08/16/22 Status: Ordered ondansetron 4 mg oral tablet See Instructions, TAKE 1 TABLET BY MOUTH EVERY 8 HOURS NEEDED FOR NAUSEA AND VOMITING FOR 5 DAYS, # 15 each, 11 Refills, Maintenance, 06/19/22 15:15:00 EDT, [facility]/pharmacy #[id number], 163, cm, 05/01/22 14:15:00 EST, [...] Team Personnel Name: Adela Sorto MD Position: [facility] SEWING MACHINE OPERATOR PAPER BAGS Member Role: Lifetime SEWING MACHINE OPERATOR PAPER BAGS Physician Address: Address: [address] [place] [address], [address] [facility] [address] Name: Nanci Melendez MD Position: [facility] Physician - Primary Care Member Role: PCP Address: Address: [address] [place] [address]- [place] Care Team Related Persons Name: SEAN RITCHIE Address: [address] Address: home [address] [place] [address] Name: DERRELL RITCHIE Address: [address] [place] [address] Name: DERRELL RITCHIE Address: [address] [place] [address] Name: DERRELL RITCHIE Address: home [address] [place] [address] Name: SHEBA CANO Address: home [address] [place] [address] Name: DAYANNA CANO Address: [address] [place] [address]
--- OUTSIDE RECORDS SUMMARY | 2024-02-22 11:39 | XMS_ITS | Continuity of Care Document ---
Author Organization [facility] Address [address] [place] [address]- Care Team Providers Care Heating And Ventilating Drafter Name Role Phone Nanci Melendez MD Primary Care Physician [phone] Encounter [facility] Date(s): 12/24/19 - 01/23/[address] [facility] [address] [place] [address]- [facility] Allergies, Adverse Reactions, Alerts Substance Reaction Severity Status Reglan EYE TWITCHING Active Immunizations Given and Recorded Vaccine Date Status Refusal Reason tetanus/diphtheria/pertussis, acel(Tdap) 1 06/05/18 Given tetanus/diphtheria/pertussis, acel(Tdap) [...] Virus Vaccine 11/21/89 Recor ded 1Result Comment: [facility]# [id number] PT. TOLERATED INJ. WITHOUT COMPLICATIONS....CO 2Result Comment: [facility]# [id number] PT. TOLERATED INJ. WITHOUT COMPLICATIONS...CO 3Result Comment: [04/06/2016] pt. tolerated inj. without complications...CO 4Result Comment: [04/14/2015] Measles mumps rubella titer Medications Advair Diskus 500 mcg-50 mcg inhalation powder 1, puffs, Inhalation, 2 times a day, # 1 each, Refills 12, Tot. Refills 12, Maintenance, 12/24/19 13:40:00 EDT, Route to Pharmacy Electronically, [id number], [facility], 161, cm, 06/12/19 8:56:00 EDT, Height, 106,... Start Date: 12/24/19 Status: Ordered albuterol 0.083% inhalation solution 3 mL = 2.5 mg, Inhalation, Every 6 hours, PRN for wheezing, # 60 each, 11 Refills, Maintenance, 12/24/19 13:40:00 EDT, Solution, [facility], 161, cm, 06/12/19 8:56:00 [...] 3 Refills, Maintenance, 12/24/19 13:41:00 EDT, ECCapsule, [facility], 161, cm, 06/12/19 8:56:00 EDT, Height, 106, kg, 09/11/18 13:37:00 EDT, Dry Weight Start Date: 12/24/19 Status: Ordered diclofenac sodium 75 mg oral delayed release tablet 1 tablet = 75 mg, By Mouth, 2 times a day, PRN for pain, TAKE WITH FOOD, # 28 tablet, 1 Refills, Maintenance, 12/16/19 9:22:00 EDT, Tablet, [facility], 161, cm, 06/12/19 8:56:00 [...] Date: 07/24/18 Stop Date: 08/13/18 Status: Ordered metFORMIN 500 mg oral tablet, extended release See Instructions, take 1 tablet po w/dinner x1 wk, then increase to 2 tablets x 1-2 wks, then increase to 3 tablets 1-2 wks,then 4 tabs with dinner every day., # 120 tablet, 11 Refills, Maintenance, 06/07/18 10:01:53 EST Start Date: 06/07/18 Status: Ordered Nebulizer/Compressor See Instructions, # 1 [...] each, 5 Refills, Maintenance, 12/24/19 13:58:00 EDT, [facility], 161, cm, :56:00 EDT, Height, 106, kg, 09/11/18 13:37:00 EDT... Start Date: 12/24/19 Status: Ordered Ovidrel 250 mcg/0.5 mL subcutaneous solution See Instructions, Take 2 Subcutaneous Injections Once per cycle when directed, # 2 Doses, 3 Refills, Soft Stop, 07/25/18 15:54:58 EDT, Solution, please give patient sharps container Start Date: 07/25/18 Status: Ordered Multivitamins By Mouth, Daily, 0 Refills, Maintenance, 06/05/18 11:27:06 EST Start Date: 06/05/18 Status: Ordered ProAir HFA 90 mcg/inh inhalation aerosol with adapter 2, puffs, Inhalation, 4 times a day, PRN, # 2 each, Refills 5, Tot. Refills 5, Maintenance, 05/19/19 15:55:00 EST, Aerosol, Route to Pharmacy Electronically, [id number], [facility], 161, cm, 01/20/19 11:38:00 EDT,... Start Date: 05/19/19 Status: Ordered ProAir HFA 90 mcg/inh inhalation aerosol with adapter 180 mcg, 2, puffs, Inhalation, 4 times a day, # 1 each, Refills 4, Tot. Refills 4, Maintenance, 12/24/19 13:40:00 EDT, Inhaler, Route to Pharmacy Electronically, [id number],[facility], 161, cm, 06/12/19 8:56:00 ED... Start Date: 12/24/19 Status: Ordered simethicone 250 mg oral capsule [...] tablet By Mouth PRN, 0 Refills, Maintenance, 04/24/19 10:59:04 EDT Start Date: 07/24/18 Status: Ordered [...]
--- OUTSIDE RECORDS SUMMARY | 2024-02-22 11:39 | XMS_ITS | Continuity of Care Document ---
Author Organization [facility] Address [address] [place] [address]- Care Team Providers Care Farm Hand Name Role Phone Al DIEGO, Nanci Segovia Primary Care Physician [phone] [place] [facility] [place](s): 01/13/22 - 01/20/22 [facility] [address] [place], [place] [address] Attending Physician: Connie DIEGO, Estela Marroquin Referring Physician: Not on Staff, Referring MD Allergies, Adverse Reactions, Alerts Substance Reaction [...] Virus Vaccine 11/21/89 Recor ded 1Result Comment: [facility]# [id number] PT. TOLERATED INJ. WITHOUT COMPLICATIONS....CO 2Result Comment: [facility]# [id number] PT. TOLERATED INJ. WITHOUT COMPLICATIONS...CO 3Result Comment: [04/06/2016] pt. tolerated inj. without complications...CO 4Result Comment: [04/14/2015] Measles mumps rubella titer Medications Albuterol (Eqv-ProAir HFA) 90 mcg/inh inhalation aerosol See Instructions, INHALE 2 PUFFS BY MOUTH 4 TIMES DAILY NEEDED FOR WHEEZING, # 9 Gm, 6 Refills, 08/17/21 9:51:00 EDT, [facility], 25, INHALE 2 PUFFS BY MOUTH 4 TIMES DAILY NEEDED FORWHEEZING, 162, cm, 08/03/21 16:59:00 EDT, Height, 1... Start Date: 08/17/21 Status: Ordered albuterol 0.083% inhalation solution 3 mL = 2.5 mg, Inhalation, Every 6 hours, PRN for wheezing, # 100 each, 5 Refills, Maintenance, 08/17/21 9:51:00 EDT, Solution, [facility], replaces previous Rx for albuterol-ipatropium [...] once daily, # 90 capsule, 1 Refills, [facility], 162, cm, 09/16/21 15:34:00 [...] tablet, 11 Refills, Maintenance, 08/18/21 16:40:00EDT, Tablet, [facility], Partial fill upon patient [...] 08/17/21 9:51:00 EDT, Route to Pharmacy Electronically, [id number], [facility], 162, cm, 08/03/21 16:59:00 [...] tablet, 11 Refills, Maintenance, 03/16/21 11:27:00 EST, [facility], 162, cm, 03/10/21 14:17:00 [...] each, 11 Refills, Maintenance, 06/18/20 9:35:00 EDT, [facility], 161, cm, :18:00 EDT, [...] Personnel Name: Nanci Melendez MD Address: Address: [address] [place] [address]
--- OUTSIDE RECORDS SUMMARY | 2024-02-22 11:39 | XMS_ITS | Continuity of Care Document ---
Author Organization [facility] Address [address] [place] [id number]- Care Team Providers Care Digital Color Press Operator Name Role Phone Al DIEGO, Nanci Segovia Primary Care Physician [facility]counter [facility] Date(s): 03/10/21 - 04/09/21 [facility] [address] [place] [id number]- Attending Physician: Marely Fu Admitting Physician: AdmMarely [...] Virus Vaccine 11/21/89 Recor ded 1Result Comment: [facility]# [id number] PT. TOLERATED INJ. WITHOUT COMPLICATIONS....CO 2Result Comment: [facility]# [id number] PT. TOLERATED INJ. WITHOUT COMPLICATIONS...CO 3Result Comment: [...] Gm, 10 Refills, Maintenance, 06/07/20 14:34:00 EST, [facility], 50, INHALE 2 PUFFS BY MOUTH 4 TIMES DAILY NEEDED FORWHEEZING, 161, cm, 02/10/20 14:26:00 EST, Height, 1... Start Date: 06/07/20 Status: Ordered albuterol 0.083% inhalation solution 3 mL = 2.5 mg, Inhalation, Every 6 hours, PRN for wheezing, # 25 each, 0 Refills, Maintenance, 04/04/21 12:33:00 EST, Solution, [facility], replaces previous Rx for albuterol-ipatropium solution, 162, cm, 03/10/21 14:17:00 EST, Height, 105.... Start Date: 04/04/21 Status: Ordered albuterol-ipratropium 3 mg-0.5 mg/3 ml inhalation solution 3 mL, Neb, 4 times a day, PRN shortness of breath, # 180 mL, 2 Refills, Maintenance, 04/04/21 8:55:00 EST, Solution, [facility], 3 mL Neb 4 times a day,PRN:shortness of breath, 162, cm, 03/10/21 14:17:00 EST, Height, 105.2, kg, 02/12/21 17:... Start Date: 04/04/21 Status: Ordered Apri 0.15 mg-0.03 mg oral tablet 1 tablet, By Mouth, Daily, start first tablet today, # 1 pack/packet, 3 Refills, Maintenance, 12/09/20 13:48:00 EDT, [facility], Partial fill upon patient request [...] 0 Refills, Maintenance, 02/11/21 12:37:00 EST, ECCapsule, [facility], 163, cm, 01/01/21 10:10:00 EDT, Height Start Date: 02/11/21 Status: Ordered doxycycline hyclate 100 mg oral tablet 1 tablet = 100 mg, By Mouth, 2 times a day, # 28 tablet, 5 Refills, Maintenance, 12/31/20 8:23:00 EDT, [facility], Partial fill upon patient [...] each, Refills 5, Route to Pharmacy Electronically, [id number], [facility], 163, cm, 01/01/21 10:10:00 EDT, Height Start Date: 01/28/21 Status: Ordered Gonal-F 1050 units subcutaneous injection = 150 International_Units, Subcutaneous Injection, Daily, # 2 kit, 5 Refills, Maintenance, 218:23:00 EDT, [facility], Partial fill upon patient [...] tablet, 11 Refills, Maintenance, 03/16/21 11:27:00 EST, [facility], 162, c... 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 Start Date: 06/18/20 Status: Ordered oxyCODONE 5 mg oral tablet 5 mg, 1, tablet, By Mouth, Every 6 hours, PRN, # 8 tablet, Refills 0, Tot. Refills 0, Maintenance, Pain , Mild, 01/18/21 9:22:00 EDT, Route to Pharmacy Electronically, [facility], Partial fill upon patient request [...] 04/25/21 8:56:00 EST, 04/04/21 8:56:00 EST, Tablet, [facility], Pa... Start Date: 04/04/21 Stop Date: 04/25/21 Status: Ordered Pregnyl 86372 u injectable powder for injection = 1,000 units, Intramuscular, Once, For use as trigger shot. Use 3 mL of diluent to reconstitute powder. Draw and administer 0.3 mL of reconsituted pregnyl for total dose of 1000 units., # 1 kit, 5 Refills, Soft Stop, 12/31/20 8:24:00 EDT, [facility]... Start Date: 12/31/20 Status: Ordered Multivitamins By Mouth, Daily, 0 Refills, Maintenance, 06/05/18 11:27:06 EST Start Date: 06/05/18 Status: Ordered progesterone 50 mg/mL intramuscular solution 50mg/ml 1 ml (sesame oil), Intramuscular, Daily, # 30 mL, 5 Refills, Maintenance, 02/03/21 11:55:00EDT, [facility], Partial fill upon patient request if the prescription is for a schedule II opioid drug., 163, cm, 01/01/21 10:10:00 E... Start Date: 02/03/21 Status: Ordered Prometrium 200 mg oral capsule See Instructions, vaginally 3 times a day, # 90 tablet, 5 Refills, Maintenance, 12/31/20 8:22:00 EDT, [facility], Partial fill upon patient request if the prescription is for a schedule II opioid drug., 161, cm, 10/12/20 10:38:00 EDT,... Start Date: 12/31/20 Status: Ordered Provera 10 mg oral tablet 10 mg, 1, tablet, By Mouth, Daily, # 10 tablet, Refills 0, Tot. Refills 0, Maintenance, 04/04/21 10:58:00 EST, Route to Pharmacy Electronically, [facility], Partial fill upon patient request [...] 01/18/21 9:22:00 EDT, Route to Pharmacy Electronically, [facility], Partial fill upon patient request [...] patch, 5 Refills, Maintenance, 12/31/20 8:23:00 EDT, [facility], Partial fill upon patient request if the prescription is for a schedule II opio... Start Date: 12/31/20 Status: Ordered yes yes, See Instructions, # 2 each, Refills 5, Tot. Refills 5, Maintenance, [facility] Capped Insulin Syringe for lupron administration, 12/31/20 [...]
--- OUTSIDE RECORDS SUMMARY | 2024-02-22 11:39 | XMS_ITS | Continuity of Care Document ---
Author Organization [facility] Address [address] [place] [address]- Care Team Providers Care Reference Archivist Name Role Phone Al DIEGO, Nanci Segovia Primary Care Physician [phone] Encounter [facility] Date(s): 03/01/20 - 03/08/20 [facility] [address] [place], [place] [address] Attending Physician: Michael Tellez MD Allergies, Adverse Reactions, Alerts Substance Reaction [...] Vaccine 11/21/89 Recor ded 1Result Comment: [facility]# [id number] PT. TOLERATED INJ. WITHOUT COMPLICATIONS....CO 2Result Comment: [facility]# [id number] PT. TOLERATED INJ. WITHOUT COMPLICATIONS...CO 3Result Comment: [04/06/2016] pt. tolerated inj. without complications...CO 4Result Comment: [04/14/2015] Measles mumps rubella titer Medications Advair Diskus 500 mcg-50 mcg inhalation powder 1, puffs, Inhalation, 2 times a day, # 1 each, Refills 12, Tot. Refills 12, Maintenance, 12/24/19 13:40:00 EDT, Route to Pharmacy Electronically, [id number], [facility], 161, cm, [...] 13:40:00 EDT, Inhaler, Route to Pharmacy Electronically, [id number],[facility], 161, cm, 06/12/19 8:56:00 ED... Start Date: 12/24/19 Status: Ordered ProAir HFA 90 mcg/inh inhalation aerosol with adapter 2, puffs, Inhalation, 4 times a day, PRN, # 2 each, Refills 5, Tot. Refills 5, Maintenance, 05/19/19 15:55:00 EST, Aerosol, Route to Pharmacy Electronically, [id number], [facility], 161, cm, [...]
--- OUTSIDE RECORDS SUMMARY | 2024-02-22 11:39 | XMS_ITS | Continuity of Care Document ---
Author Organization [facility] Address [address], [address] [place] [phone]- Care Team Providers Care Automatic Buffing Wheel Former Name Role Phone Nanci Melendez MD Primary Care Physician Encounter [facility] Date(s): 04/17/20 - 04/24/20 [facility] [address] [place] [id number] Attending Physician: Not on Staff, Attending MD Referring Physician: Jalyn Cabrera MD Allergies, Adverse Reactions, Alerts Substance Reaction [...] Comment: [facility]# [id number] PT. TOLERATED INJ. WITHOUT COMPLICATIONS....CO 2Result Comment: [facility]# [id number] PT. TOLERATED INJ. WITHOUT COMPLICATIONS...CO 3Result Comment: [04/06/2016] pt. tolerated inj. without complications...CO 4Result Comment: [04/14/2015] Measles mumps rubella titer Medications Advair Diskus 500 mcg-50 mcg inhalation powder 1, puffs, Inhalation, 2 times a day, # 1 each, Refills 12, Tot. Refills 12, Maintenance, 12/24/19 13:40:00 EDT, Route to Pharmacy Electronically, [id number], [facility] 1969, 161, cm, 06/12/19 8:56:00 EDT, Height, 106,... Start Date: 12/24/19 Status: Ordered albuterol 0.083% inhalation solution 3 mL = 2.5 mg, Inhalation, Every 6 hours, PRN for wheezing, # 60 each, 11 Refills, Maintenance, 12/24/19 13:40:00 EDT, Solution, [facility] 1969, 161, cm, 06/12/19 8:56:00 [...] 3 Refills, Maintenance, 12/24/19 13:41:00 EDT, ECCapsule, [facility], 161, cm, 06/12/19 8:56:00 EDT, Height, 106, kg, 09/11/18 13:37:00 EDT, Dry Weight Start Date: 12/24/19 Status: Ordered diclofenac sodium 75 mg oral delayed release tablet 1 tablet = 75 mg, By Mouth, 2 times a day, PRN for pain, TAKE WITH FOOD, # 28 tablet, 1 Refills, Maintenance, 12/16/19 9:22:00 EDT, Tablet, [facility] 1969, 161, cm, 06/12/19 8:56:00 [...] tablet, 3 Refills, Maintenance, 02/09/20 17:27:00 EST, [facility] 1969, 161, cm, 06/12/19 8:56:00 [...] tablet, 11 Refills, Maintenance, 02/10/20 14:25:00 EST, [facility], 161, c... Start [...] each, 5 Refills, Maintenance, 12/24/19 13:58:00 EDT, [facility] 1969, 161, cm, 208:56:00 EDT, [...] 13:40:00 EDT, Inhaler, Route to Pharmacy Electronically, [id number],[facility], 161, cm, 06/12/19 8:56:00 ED... Start Date: 12/24/19 Status: Ordered ProAir HFA 90 mcg/inh inhalation aerosol with adapter 2, puffs, Inhalation, 4 times a day, PRN, # 2 each, Refills 5, Tot. Refills 5, Maintenance, 05/19/19 15:55:00 EST, Aerosol, Route to Pharmacy Electronically, [id number], [facility], 161, cm, 01/20/19 11:38:00 [...]
--- OUTSIDE RECORDS SUMMARY | 2024-02-22 11:39 | XMS_ITS | Continuity of Care Document ---
Author [facility] Address [address], [address]t [place] [address]- Care Team Providers Care Expediter Service Order Name Role Phone Al DIEGO, Nanci Segovia Primary Care Physician [phone] Encounter [facility] Date(s): 09/07/21 - 10/07/21 [facility] [address], [address] [place], [place] [address] Allergies, Adverse Reactions, Alerts Substance Reaction [...] Virus Vaccine 11/21/89 Recor ded 1Result Comment: [facility]# [id number] PT. TOLERATED INJ. WITHOUT COMPLICATIONS....CO 2Result Comment: [facility]# [id number] PT. TOLERATED INJ. WITHOUT COMPLICATIONS...CO 3Result Comment: [04/06/2016] pt. tolerated inj. without complications...CO 4Result Comment: [04/14/2015] Measles mumps rubella titer Medications Albuterol (Eqv-ProAir HFA) 90 mcg/inh inhalation aerosol See Instructions, INHALE 2 PUFFS BY MOUTH 4 TIMES DAILY NEEDED FOR WHEEZING, # 9 Gm, 6 Refills, 08/17/21 9:51:00 EDT, [facility] 1969, 25, INHALE 2 PUFFS BY MOUTH 4 TIMES DAILY NEEDED FORWHEEZING, 162, cm, 08/03/21 16:59:00 EDT, Height, 1... Start Date: 08/17/21 Status: Ordered albuterol 0.083% inhalation solution 3 mL = 2.5 mg, Inhalation, Every 6 hours, PRN for wheezing, # 100 each, 5 Refills, Maintenance, 08/17/21 9:51:00 EDT, Solution, [facility], replaces previous Rx for [...] once daily, # 90 capsule, 1 Refills, [facility], 162, cm, 09/16/21 15:34:00 EDT, Height, 107.4, [...] tablet, 11 Refills, Maintenance, 08/18/21 16:40:00EDT, Tablet, [facility], Partial [...] 08/17/21 9:51:00 EDT, Route to Pharmacy Electronically, [id number], [facility], 162, cm, 08/03/21 16:59:00 [...] [facility], 161, cm, :18:00 EDT, [...]
--- OUTSIDE RECORDS SUMMARY | 2024-02-22 11:40 | XMS_ITS | Continuity of Care Document ---
Author Organization [facility] Address Unknown Care Team Providers Care Special Officer Automat Name Role Phone Nanci Melendez MD Primary Care Physician [phone] Encounter [facility] Date(s): 12/29/20 - 01/28/21 [facility] Allergies, Adverse Reactions, Alerts [...] [facility]# [id number] PT. TOLERATED INJ. WITHOUT COMPLICATIONS....CO 2Result Comment: [facility]# [id number] PT. TOLERATED INJ. WITHOUT COMPLICATIONS...CO 3Result Comment: [04/06/2016] pt. tolerated inj. without complications...CO 4Result Comment: [04/14/2015] Measles mumps rubella titer Medications 3cc syringe 18g 1 1/2 inch needle 3cc syringe 18g 1 1/2 inch needle, See Instructions, # 2 each, Refills 5, Tot. Refills 5, Maintenance, For use with drawing and mixing pregnyl for trigger shot, 12/31/20 8:22:00 EDT, Compound, 161, cm, 10/12/20 10:38:00 EDT, Height Start Date: 12/31/20 Status: Ordered Albuterol (Eqv-ProAir HFA) 90 mcg/inh inhalation aerosol 2 puffs, Inhalation, 4 times a day, PRN NEEDED FOR WHEEZING, # 18 Gm, 10 Refills, Maintenance, 06/07/20 14:34:00 EST, [facility] 1969, 50, INHALE 2 PUFFS BY MOUTH 4 TIMES DAILY NEEDED FORWHEEZING, 161, cm, 02/10/20 14:26:00 EST, Height, 1... Start Date: 06/07/20 Status: Ordered albuterol-ipratropium 3 mg-0.5 mg/3 ml inhalation solution 3 mL, Neb, 4 times a day, PRN shortness of breath, # 180 mL, 11 Refills, Maintenance, 06/18/20 9:36:00 EDT, Solution, [facility] 1969, 3 mL Neb 4 times a day,PRN:shortness of breath, 161, cm, 06/18/20 9:18:00 EDT, Height, 106, kg, 09/11/18 13:37... Start Date: 06/18/20 Status: Ordered Apri 0.15 mg-0.03 mg oral tablet 1 tablet, By Mouth, Daily, start first tablet today, # 1 pack/packet, 3 Refills, Maintenance, 12/09/20 13:48:00 EDT, [facility], Partial fill upon patient request if the prescription is for a schedule II opioid drug., 1 tablet By Mouth Kemi... Start Date: 12/09/20 Status: Ordered Benadryl 25 mg oral capsule See Instructions, 2 capsule By Mouth PRN, 0 Refills, Maintenance, 04/24/19 11:01:32 EDT Start Date: 07/24/18 Status: Ordered Dexilant 60 mg oral delayed release capsule 1 capsule = 60 mg, By Mouth, Daily, # 90 capsule, 3 Refills, Maintenance, 12/24/19 13:41:00 EDT, ECCapsule, [facility] 1969, 161, cm, 06/12/19 8:56:00 EDT, Height, 106, kg, 09/11/18 13:37:00 EDT, Dry Weight Start Date: 12/24/19 Status: Ordered doxycycline hyclate 100 mg oral tablet 1 tablet = 100 mg, By Mouth, 2 times a day, # 28 tablet, 5 Refills, Maintenance, 12/31/20 8:23:00 EDT, [facility], Partial fill upon patient [...] each, Refills 5, Route to Pharmacy Electronically, [id number], [facility] 1969, 163, cm, 01/01/21 10:10:00 EDT, Height Start Date: 01/28/21 Status: Ordered ganirelix 250 mcg/0.5 ml subcutaneous injection 0.5 mL = 250 mcg, Subcutaneous Injection, Daily, # 5 each, 5 Refills, Acute 02/20/21 8:26:00 EST, 12/31/20 8:23:00 EDT, Solution, [facility], Partial fill upon patient request if theprescription is for a schedule II opioid drug., 161... Start Date: 12/31/20 Stop Date: 02/20/21 Status: Ordered Gonal-F 1050 units subcutaneous injection = 150 International_Units, Subcutaneous Injection, Daily, # 2 kit, 5 Refills, Maintenance, 218:23:00 EDT, [facility], Partial fill upon patient [...] 02/20/21 8:26:00 EST, 12/31/20 8:22:00 EDT, Powder, [facility], Partial fill upon patient requestif the [...] tablet, 11 Refills, Maintenance, 02/10/20 14:25:00 EST, [facility] 1969, 161, c... Start Date: [...] each, 11 Refills, Maintenance, 06/18/20 9:35:00 EDT, [facility] 1969, 161, cm, 219:18:00 EDT, Height, 106, kg, 09/11/18 13:37:00 EDT... Start Date: 06/18/20 Status: Ordered oxyCODONE 5 mg oral tablet 5 mg, 1, tablet, By Mouth, Every 6 hours, PRN, # 8 tablet, Refills 0, Tot. Refills 0, Maintenance, Pain , Mild, 01/18/21 9:22:00 EDT, Route to Pharmacy Electronically, [facility], Partial fill upon patient request if the prescription is for... Start Date: 01/18/21 Status: Ordered Pregnyl 08479 u injectable powder for injection = 1,000 units, Intramuscular, Once, For use as trigger shot. Use 3 mL of diluent to reconstitute powder. Draw and administer 0.3 mL of reconsituted pregnyl for total dose of 1000 units., # 1 kit, 5 Refills, Soft Stop, 12/31/20 8:24:00 EDT, [facility]... Start Date: 12/31/20 Status: Ordered Multivitamins By Mouth, Daily, 0 Refills, Maintenance, 06/05/18 11:27:06 EST Start Date: 06/05/18 Status: Ordered Prometrium 200 mg oral capsule See Instructions, vaginally 3 times a day, # 90 tablet, 5 Refills, Maintenance, 12/31/20 8:22:00 EDT, [facility], Partial fill upon patient [...] 01/18/21 9:22:00 EDT, Route to Pharmacy Electronically, [facility], Partial fill upon patient [...] patch, 5 Refills, Maintenance, 12/31/20 8:23:00 EDT, [facility], Partial fill upon patient request if the prescription is for a schedule II opio... Start Date: 12/31/20 Status: Ordered yes yes, See Instructions, # 2 each, Refills 5, Tot. Refills 5, Maintenance, [facility] Capped Insulin Syringe for lupron administration, 12/31/20 [...]
--- OUTSIDE RECORDS SUMMARY | 2024-02-22 11:40 | XMS_ITS | Continuity of Care Document ---
Author Organization [facility] Address [address] [facility], 4t h Floor [address] [place] [address]- Care Team Providers Care Principal Technologist Name Role Phone Nanci Melendez MD Primary Care Physician [phone] [place] [facility] [place] 03/09/23 [facility] [address], 4th [address] [place] [address]- Attending Physician: Jalyn Cabrera MD Referring Physician: Nanci Melendez MD Allergies, [...] Comment: [facility] [place] [id number] PT. TOLERATED INJ. WITHOUT COMPLICATIONS....CO 2Result Comment: [facility] [place]# [id number] PT. TOLERATED INJ. WITHOUT COMPLICATIONS...CO 3Result Comment: [...] mL, 0 Refills, Maintenance, 03/17/22 15:45:00 EST, [facility], Partial fill upon patient request if the prescription is for a schedule II opioid drug., 163, cm, 03/17/22... Start Date: 03/17/22 Stop Date: 03/31/22 Status: Ordered Dexilant 60 mg oral delayed release capsule See Instructions, Take 1 capsule by mouth once daily, # 90 capsule, 0 Refills, 03/14/22 14:26:00 EST, [facility] 1967, 163, cm, 02/27/22 9:06:00 EST, Height, 128.2, kg, 02/05/22 12:22:00 EST, Dry Weight Start Date: 03/14/22 Status: Ordered Diflucan 150 mg oral tablet 1 tablet = 150 mg, By Mouth, Once, # 1 tablet, 0 Refills, Soft Stop, 03/01/22 15:59:00 EST, Tablet,[facility], Partial fill upon patient request [...] tablet, 11 Refills, Maintenance, 08/18/21 16:40:00EDT, Tablet, [facility] 1966, Partial fill upon [...] 05/04/22 9:46:00 EST, Route to Pharmacy Electronically, [id number], [facility], 163, [...] tablet, 5 Refills, Maintenance, 08/16/22 9:41:00 EDT, [id number], 163, cm, 05/01/22 14:15:00 EST, Height, 128.2, [...] 5 Refills, Maintenance, 06/19/22 15:16:00 EDT, Aerosol, [facility]/pharmacy #[id number], Partial fill upon patient request [...] oldest [Reference Range]: 1 Height 163 cm (03/02/23 1:11 PM) Weight 116.8 kg (03/02/23 1:11 PM) Pulse Rate [55-90 bpm] 97 bpm *H* (03/02/23 1:11 PM) Body Mass Index [18.5-24.99 kg/m2] 43.96 kg/m2 *>HHI* (03/02/23 1:11 PM) Blood Pressure [90-138/55-84 mm Hg] 117/ 73mm Hg (03/02/23 1:11 PM) Blood pressure sites Arm, left (03/02/23 1:11 PM) Weight Obtained Via Standing scale (03/02/23 1:11 PM) Social History Social History Type Response Smoking Status Never smoker; Tobacc o user in household: No entered on: 07/02/15 Sex Note * Pierre Garg MA: PERFORM, SIGN, VERIFY Event Display: Patient Education/Instruction Authored Date: [id number] [facility] *[facility] Clinical Summary Name RAFA RITCHIE Age 32 Years 1990 PCP Nanci Melendez MD PCP Visit Date 03/02/2023 12:49:00 Additional Instructions: Scheduled Appointments?? Future Appointments ?No Future Appointments Scheduled Follow-Up Instructions ?? Diagnosis Medications: Please continue your medications until treatment is completed or stopped by your provider. Discuss any questions related to medications with your provider. Medications to Continue with No Changes These medications were not printed or sent to your pharmacy Acetaminophen (acetaminophen 325 mg oral tablet) 650 Milligram Oral every 4 hours as needed Pain , Mild. not to exceed 4000 mg/day. Refills: 0. Next Dose: Albuterol (Albuterol (Eqv-ProAir HFA) 90 mcg/inh inhalation aerosol) INHALE 2 PUFFS BY MOUTH 4 TIMES DAILY NEEDED FOR WHEEZING. Refills: 6. Next Dose: Albuterol (albuterol 0.083% inhalation solution) 3 Milliliter Inhalation every 6 hours as needed for wheezing. Refills: 5. Next Dose: Albuterol (Ventolin HFA 108 mcg/inh inhalation aerosol with adapter) 2 puff(s) Inhalation every 4 hours as needed for wheezing. Refills: 5. Next Dose: Cholecalciferol (Vitamin D3 1000 intl units oral tablet) 1 tab(s) Oral Daily. Next Dose: Cyanocobalamin (Vitamin B12) Next Dose: dexlansoprazole (Dexilant 60 mg oral delayed release capsule) Take 1 capsule by mouth once daily. Refills: 0. Next Dose: DiphenhydrAMINE (Benadryl 25 mg oral capsule) 2 capsule By Mouth PRN. Next Dose: Durable Medical Equipment ( CONSULT) CONSULT S/P MASTITIS AND LOW MILK SUPPLY. Refills: 0. Next Dose: Durable Medical Equipment (Nebulizer/Compressor) dx: J45.909 use daily lifetime use. Refills: 0. Next Dose: Famotidine (famotidine 20 mg oral tablet) OTC. Next Dose: Ferrous Sulfate (ferrous sulfate 325 mg oral tablet) 1 tab(s) Oral twice a day. Refills: 11. Next Dose: Fluconazole (Diflucan 150 mg oral tablet) 1 tab(s) Oral once. Refills: 0. Next Dose: Fluticasone Nasal (Flonase) 1 spray(s) Daily. Next Dose: Fluticasone-Salmeterol (fluticasone-salmeterol 500 mcg-50 mcg inhalation powder) 1 Doses Inhalationtwice a day. Refills: 5. Next Dose: Ibuprofen (ibuprofen 800 mg oral tablet) 1 tab(s) Oral every 8 hours as needed Pain , Moderate. notto exceed 3200 mg/day with food or milk. Refills: 0. Next Dose: Magnesium Oxide (magnesium oxide 250 mg oral tablet) 2 tab(s) Oral Daily. Next Dose: Multivitamin, ( Multivitamins) Oral Daily. Next Dose: Norethindrone (norethindrone 0.35 mg oral tablet) 1 tab(s) Oral Daily. Refills: 5. Next Dose: Ondansetron (ondansetron 4 mg oral tablet) TAKE 1 TABLET BY MOUTH EVERY 8 HOURS NEEDED FOR NAUSEA AND VOMITING FOR 5 DAYS. Refills: 11. Next Dose: Sucralfate (Carafate 1 gm/10 ml oral suspension) 10 Milliliter Oral 3 times a day before meals and bedtime for 14 Days. Refills: 0. Next Dose: Allergy Info:?? Other Environmental Allergy; Reglan Medications Given This Visit Future Orders ?No future orders Vital Signs Height 163 cm Weight 116.8 kg BMI 43.96 kg/m2 Blood Pressure 117 mm Hg/73 mm Hg Temperature Pulse Rate 97 bpm Respiratory Rate 02 Sat Mode of Delivery / You can now view a summary of your hospital visit from the comfort of your home through a free online portal called [employer]. [employer] is a website that allows you to securely view your medical information including discharge summary, medications and follow-up visits. ??You can alsosend a secure electronic message to your doctor???s office to request appointments, renew medications or just ask a question. You can enroll at [email or web address] or register during your next office visit. Disclaimer:?? The information provided is of a general nature and is intended to be used in conjunction with the recommendations and advice of your health care practitioner. ??Every effort has been made to ensure that the information provided is accurate and complete at the time it is provided to you however, as your needs change, or, as new ??information becomes available, different or additional instructions may be required. If you have questions, please consult with your primary care provider or pharmacist, as appropriate. ??This information is not intended to serve as substitution for assessment and evaluation by a qualified health care provider. If you do not have a primary care provider, you may find a [facility] provider by calling [facility] [employer] Link at [phone]. [facility], in keeping with [facility] guidance, no longer requires face masks for staff, patientsor visitors in most situations. Similar to time spent indoors at other locations, there is the chance that you were exposed to respiratory viruses during your time with us (such as flu or COVID-19).? If you develop symptoms concerning for a viral respiratory infection, please seek testing (and treatment if indicated) from your medical provider or home test kit. For information about the plan of care including goals and instructions for your diagnosis, please see the patient education orders section of this document. Patient Education Materials?? The content of this educational material or handout may have been modified, supplemented, or adapted from its original content and format to support your individualized medical care. Additional Provider Instructions:Labs entered for pt and partner and practice prep. No Auth needed for practice prep. Patient Care team information Care Team Personnel Name: Adela Sorto MD Position: [facility] GRAPPLER Member Role: Lifetime GRAPPLER Physician Address: Address: [address] [place] [address], [address] [place] [address]- Name: Nanci Melendez MD Position: [facility] Physician - Primary Care Member Role: PCP Address: Address: [address] [place] [address]- [place] Care Team Related Persons Name: SEAN RITCHIE Address: [address] Address: home [address] [place] [address] Name: DERRELL RITCHIE Address: [address] [address] Name: RITCHIEDERRELL Address: home [address] [place] [address] Name: RITCHIEDERRELL Address: [address] [address] Name: SHEBA CANO Address: home [address] [place] [address] Name: DAYANNA CANO Address: home [address] [place] [address]
--- OUTSIDE RECORDS SUMMARY | 2024-02-22 11:40 | XMS_ITS | Continuity of Care Document ---
Author Organization [facility] Address [address] [facility], 4t h Floor [address] [place] [address]- Care Team Providers Care Volunteer Recruiter Name Role Phone Nanci Melendez MD Primary Care Physician [place] [facility] [place]23 [facility] [address] [facility], 4th Floor [address] [place] [address]- Allergies, Adverse Reactions, Alerts Substance Reaction Severity [...] Comment: [facility] [place]# [id number] PT. TOLERATED INJ. WITHOUT COMPLICATIONS....CO 2Result Comment: [facility] [place]# [id number] PT. TOLERATED INJ. WITHOUT COMPLICATIONS...CO 3Result Comment: [04/06/2016] pt. tolerated inj. without complications...CO 4Result Comment: [04/14/2015] Measles mumps rubella titer Medications acetaminophen 325 mg oral tablet 650 mg, By Mouth, Every 4 hours, PRN, not to exceed 4000 mg/day, # 60 tablet, Refills 0, Tot. Refills 0, Maintenance, Pain , Mild, 02/08/22 8:05:00 EST, Route to Pharmacy Electronically, [facility] 1966, Partial fill upon patient request if the... Start Date: 02/08/22 Status: Ordered Albuterol (Eqv-ProAir HFA) 90 mcg/inh inhalation aerosol See Instructions, INHALE 2 PUFFS BY MOUTH 4 TIMES DAILY NEEDED FOR WHEEZING, # 9 Gm, 6 Refills, 08/17/21 9:51:00 EDT, [facility] 1967, 25, INHALE 2 PUFFS BY MOUTH 4 TIMES DAILY NEEDED FORWHEEZING, 162, cm, 08/03/21 16:59:00 EDT, Height, 1... Start Date: 08/17/21 Status: Ordered albuterol 0.083% inhalation solution 3 mL = 2.5 mg, Inhalation, Every 6 hours, PRN for wheezing, # 100 each, 5 Refills, Maintenance, 06/19/22 15:15:00 EDT, Solution, [facility]/pharmacy #[id number], replaces previous Rx for albuterol-ipatropium solution, [...] mL, 0 Refills, Maintenance, 03/17/22 15:45:00 EST, [facility], Partial fill upon patient request if the prescription is for a schedule II opioid drug., 163, cm, 03/17/22... Start Date: 03/17/22 Stop Date: 03/31/22 Status: Ordered Dexilant 60 mg oral delayed release capsule See Instructions, Take 1 capsule by mouth once daily, # 90 capsule, 0 Refills, 03/14/22 14:26:00 EST, [facility], 163, cm, 02/27/22 9:06:00 EST, Height, 128.2, kg, 02/05/22 12:22:00 EST, Dry Weight Start Date: 03/14/22 Status: Ordered Diflucan 150 mg oral tablet 1 tablet = 150 mg, By Mouth, Once, # 1 tablet, 0 Refills, Soft Stop, 03/01/22 15:59:00 EST, [facility], Partial fill upon patient request [...] tablet, 11 Refills, Maintenance, 08/18/21 16:40:00EDT, Tablet, [facility] 1966, Partial fill upon [...] 03/12/23 11:30:00 EST, Route to Pharmacy Electronically, [id number], [facility]/pharmacy #1130, 163, cm, 03/02/23 13:11:00 EST, Height, 128.2, kg, 02/05/22 1... Start Date: 03/12/23 Status: Ordered ibuprofen 800 mg oral tablet 800 mg, 1, tablet, By Mouth, Every 8 hours, PRN, not to exceed 3200 mg/day with food or milk, # 40 tablet, Refills 0, Tot. Refills 0, Maintenance, Pain , Moderate, 02/08/22 8:05:00 EST, Route to Pharmacy Electronically, [facility] 1967, Partial... Start Date: [...] tablet, 5 Refills, Maintenance, 08/16/22 9:41:00 EDT, [facility] 07195, 163, cm, 05/01/22 14:15:00 EST, Height, 128.2, kg, 02/05/22 12:22:00 EST, Dry Weight Start Date: 08/16/22 Status: Ordered ondansetron 4 mg oral tablet See Instructions, TAKE 1 TABLET BY MOUTH EVERY 8 HOURS NEEDED FOR NAUSEA AND VOMITING FOR 5 DAYS, # 15 each, 11 Refills, Maintenance, 06/19/22 15:15:00 EDT, [facility]/pharmacy #1130, 163, cm, 05/01/22 14:15:00 EST, Height, 128.2, kg, 02/05/22 12:22:00 ES... Start Date: 06/19/22 Status: Ordered Multivitamins By Mouth, Daily, 0 Refills, Maintenance, 06/05/18 11:27:06 EST Start Date: 06/05/18 Status: Ordered Ventolin HFA 108 mcg/inh inhalation aerosol with adapter 2 puffs, Inhalation, Every 4 hours, PRN for wheezing, # 8 Gm, 5 Refills, Maintenance, 03/12/23 11:35:00 EST, Aerosol, [facility]/pharmacy #1130, Partial fill upon patient request if [...] Personnel Name: Adela Sorto MD Position: S PER DIEM PHYSICAL THERAPIST MD Member Role: Lifetime PER DIEM PHYSICAL THERAPIST Physician Address: Address: [address] [place] [address], [address] [facility]'s [address] Name: Nanci Melendez MD Position: [facility] Physician - Primary Care Member Role: PCP Address: Address: [address] [place] [address]- [place] Care Team Related Persons Name: SEAN RITCHIE Address: [address] Address: home [address] [place] [address] Name: DERRELL RITCHIE Address: home [address] [facility] [address] [place] [address] Name: DERRELL RITCHIE Address: home [address] [facility] [address] [place] [address] Name: DERRELL RITCHIE Address: home [address] [place] [address] Name: SHEBA CANO Address: home [address] [place] [address] Name: DAYANNA CANO Address: home [address] [place] [address]
--- OUTSIDE RECORDS SUMMARY | 2024-02-22 11:40 | XMS_ITS | Continuity of Care Document ---
Author Organization [facility] Hina nUles [facility] Address [address] [facility], 4[address] [place] [address]- Care Team Providers Care Cracking Unit Operator Name Role Phone Nanci Melendez MD Primary Care Physician [place] [facility] [place] Date(s): 01/04/22 - 03/18/22 [facility] S[facility] [address] [facility], [address]th [place], [place] [address] [[email or web address]] Attending Physician: Not on Staff, Attending MD Referring Physician: Estela Rosales MD Allergies, [...] Recor ded 1Result Comment: [facility]# [id number] PT. TOLERATED INJ. WITHOUT COMPLICATIONS....CO 2Result Comment: [facility]# [id number] PT. TOLERATED INJ. WITHOUT COMPLICATIONS...CO 3Result Comment: [04/06/2016] pt. tolerated inj. without complications...CO 4Result Comment: [04/14/2015] Measles mumps rubella titer Medications acetaminophen 325 mg oral tablet 650 mg, By Mouth, Every 4 hours, PRN, not to exceed 4000 mg/day, # 60 tablet, Refills 0, Tot. Refills 0, Maintenance, Pain , Mild, 02/08/22 8:05:00 EST, [facility], [facility], Partial fill upon patient request if the... Start Date: 02/08/22 Status: Ordered Albuterol (Eqv-ProAir HFA) 90 mcg/inh inhalation aerosol See Instructions, INHALE 2 PUFFS BY MOUTH 4 TIMES DAILY NEEDED FOR WHEEZING, # 9 Gm, 6 Refills, 08/17/21 9:51:00 EDT, [facility], 25, INHALE 2 PUFFS BY MOUTH 4 TIMES DAILY NEEDED FORWHEEZING, 162, cm, 08/03/21 16:59:00 EDT, Height, 1... Start Date: 08/17/21 Status: Ordered albuterol 0.083% inhalation solution 3 mL = 2.5 mg, Inhalation, Every 6 hours, PRN for wheezing, # 100 each, 5 Refills, Maintenance, 08/17/21 9:51:00 EDT, Solution, [facility], replaces previous Rx for albuterol-ipatropium [...] mL, 0 Refills, Maintenance, 03/17/22 15:45:00 EST, [facility], Partial fill upon patient request if the prescription is for a schedule II opioid drug., 163, cm, 03/17/22... Start Date: 03/17/22 Stop Date: 03/31/22 Status: Ordered Dexilant 60 mg oral delayed release capsule See Instructions, Take 1 capsule by mouth once daily, # 90 capsule, 0 Refills, 03/14/22 14:26:00 EST, [facility], 163, cm, 02/27/22 9:06:00 EST, Height, 128.2, kg, 02/05/22 12:22:00 EST, Dry Weight Start Date: 03/14/22 Status: Ordered Diflucan 150 mg oral tablet 1 tablet = 150 mg, By Mouth, Once, # 1 tablet, 0 Refills, Soft Stop, 03/01/22 15:59:00 EST, Tablet,[facility], Partial fill upon patient request [...] tablet, 11 Refills, Maintenance, 08/18/21 16:40:00EDT, Tablet, [facility] 1966, Partial fill upon patient [...] 08/17/21 9:51:00 EDT, Route to Pharmacy Electronically, [id number], [facility] 1967, 162, cm, 08/03/21 16:59:00 EDT, Height, 110, kg, 08/03/21 1... Start Date: 08/17/21 Status: Ordered ibuprofen 800 mg oral tablet 800 mg, 1, tablet, By Mouth, Every 8 hours, PRN, not to exceed 3200 mg/day with food or milk, # 40 tablet, Refills 0, Tot. Refills 0, Maintenance, Pain , Moderate, 02/08/22 8:05:00 EST, Route to Pharmacy Electronically, [facility] 1967, Partial... Start Date: 02/08/22 [...] Team Personnel Name: Nanci Melendez MD Position: [facility] Primary Care Physician Member Role: PCP Address: Address: [address] [place] [address]- Care Team Related Persons Name: SEAN RITCHIE Address: [address] Address: home [address] [place] [address] [place] Name: DERRELL RITCHIE Address: [address] [address] Name: DERRELL RITCHIE Address: home [address] [place] [address] Name: DERRELL RITCHIE Address: [address] [address] Name: SHEBA CANO Address: home [address] [place] [address] Name: DAYANNA CANO Address: home [address] [place] [address]
--- OUTSIDE RECORDS SUMMARY | 2024-02-22 11:40 | XMS_ITS | Continuity of Care Document ---
Author Organization [facility] e Medicine Address [address] [facility], 4t h Floor [address] [place] [address]- Care Team Providers Care Spray Mixer Name Role Phone Al DIEGO, Nanci Segovia Primary Care Physician [phone] Encounter [facility] Date(s): 05/04/20 - 06/03/20 [facility] Reproductive Medicine [address] [place] [address], 4th Floor [address] [place] [address] Allergies, Adverse Reactions, Alerts Substance [...] Virus Vaccine 11/21/89 Recor ded 1Result Comment: [facility]# [id number] PT. TOLERATED INJ. WITHOUT COMPLICATIONS....CO 2Result Comment: [facility]# [id number] PT. TOLERATED INJ. WITHOUT COMPLICATIONS...CO 3Result Comment: [04/06/2016] pt. tolerated inj. without complications...CO 4Result Comment: [04/14/2015] Measles mumps rubella titer Medications Advair Diskus 500 mcg-50 mcg inhalation powder 1, puffs, Inhalation, 2 times a day, # 1 each, Refills 12, Tot. Refills 12, Maintenance, 12/24/19 13:40:00 EDT, Route to Pharmacy Electronically, [id number], [facility] 1967, 161, cm, 06/12/19 8:56:00 EDT, Height, 106,... Start Date: 12/24/19 Status: Ordered albuterol 0.083% inhalation solution 3 mL = 2.5 mg, Inhalation, Every 6 hours, PRN for wheezing, # 60 each, 11 Refills, Maintenance, 12/24/19 13:40:00 EDT, Solution, [facility] 1967, 161, cm, 06/12/19 8:56:00 [...] 3 Refills, Maintenance, 12/24/19 13:41:00 EDT, ECCapsule, [facility] 1967, 161, cm, 06/12/19 8:56:00 EDT, Height, 106, kg, 09/11/18 13:37:00 EDT, Dry Weight Start Date: 12/24/19 Status: Ordered diclofenac sodium 75 mg oral delayed release tablet 1 tablet = 75 mg, By Mouth, 2 times a day, PRN for pain, TAKE WITH FOOD, # 28 tablet, 1 Refills, Maintenance, 12/16/19 9:22:00 EDT, Tablet, [facility] 1967, 161, cm, 06/12/19 8:56:00 [...] tablet, 3 Refills, Maintenance, 02/09/20 17:27:00 EST, [facility] 1967, 161, cm, 06/12/19 8:56:00 [...] tablet, 11 Refills, Maintenance, 02/10/20 14:25:00 EST, [facility] 1967, 161, c... Start Date: [...] each, 5 Refills, Maintenance, 12/24/19 13:58:00 EDT, [facility] 1967, 161, cm, 208:56:00 EDT, [...] 13:40:00 EDT, Inhaler, Route to Pharmacy Electronically, [id number],[facility] 1967, 161, cm, 06/12/19 8:56:00 ED... Start Date: 12/24/19 Status: Ordered ProAir HFA 90 mcg/inh inhalation aerosol with adapter 2, puffs, Inhalation, 4 times a day, PRN, # 2 each, Refills 5, Tot. Refills 5, Maintenance, 05/19/19 15:55:00 EST, Aerosol, Route to Pharmacy Electronically, [id number], [facility] 1967, 161, cm, 01/20/19 11:38:00 [...]
--- OUTSIDE RECORDS SUMMARY | 2024-02-22 11:40 | XMS_ITS | Continuity of Care Document ---
Author Organization [facility] Address [address] [place] [address]- Care Team Providers Care General Farm Hand Name Role Phone Al DIEGO, Nanci Segovia Primary Care Physician [phone] Encounter [facility] Date(s): 12/26/21 - 02/04/22 [facility] [address] [address] Attending Physician: Alvarez Watts MD Admitting Physician: Alvarez Watts MD Referring Physician: Sol Franco NP Allergies, Adverse Reactions, Alerts Substance Reaction Severity [...] Virus Vaccine 11/21/89 Recor ded 1Result Comment: [facility]# [id number] PT. TOLERATED INJ. WITHOUT COMPLICATIONS....CO 2Result Comment: [facility]# [id number] PT. TOLERATED INJ. WITHOUT COMPLICATIONS...CO 3Result Comment: [04/06/2016] pt. tolerated inj. without complications...CO 4Result Comment: [04/14/2015] Measles mumps rubella titer Medications Albuterol (Eqv-ProAir HFA) 90 mcg/inh inhalation aerosol See Instructions, INHALE 2 PUFFS BY MOUTH 4 TIMES DAILY NEEDED FOR WHEEZING, # 9 Gm, 6 Refills, 08/17/21 9:51:00 EDT[facility], [facility], INHALE 2 PUFFS BY MOUTH 4 TIMES DAILY NEEDED FORWHEEZING, 162, cm, 08/03/21 16:59:00 EDT, Height, 1... Start Date: 08/17/21 Status: Ordered albuterol 0.083% inhalation solution 3 mL = 2.5 mg, Inhalation, Every 6 hours, PRN for wheezing, # 100 each, 5 Refills, Maintenance, 08/17/21 9:51:00 EDT, [facility] previous Rx for albuterol-ipatropium [...] once daily, # 90 capsule, 1 Refills, [facility], 162, cm, 09/16/21 15:34:00 EDT, [...] tablet, 11 Refills, Maintenance, 08/18/21 16:40:00EDT, Tablet, [facility], Partial fill upon [...] 08/17/21 9:51:00 EDT, Route to Pharmacy Electronically, [id number], [facility], 162, cm, 08/03/21 [...] tablet, 11 Refills, Maintenance, 03/16/21 11:27:00 EST, [facility], 162, cm, 03/10/21 14:17:00 EST, Height, [...] Sex Patient Care team information Personnel Name: Al DIEGO, Nanci Segovia Address: Address: [address] [place] [address]
--- OUTSIDE RECORDS SUMMARY | 2024-02-22 11:40 | XMS_ITS | Continuity of Care Document ---
Author Organization [facility] Address [address] [facility], [address]t [address] [place] [address]- Care Team Providers Care Railroad Supervisor Of Engines Name Role Phone Nanci Melendez MD Primary Care Physician Encounter [facility] Date(s): 08/15/20 - 08/22/20 [facility] [address] [place] [address], 4th [address] [place] [address]- Attending Physician: Tiffanie Lopes MD Referring Physician: Nanci Melendez MD Allergies, [...] Vaccine 11/21/89 Recor ded 1Result Comment: [facility]# [id number] PT. TOLERATED INJ. WITHOUT COMPLICATIONS....CO 2Result Comment: [facility]# [id number] PT. TOLERATED INJ. WITHOUT COMPLICATIONS...CO 3Result Comment: [04/06/2016] pt. tolerated inj. without complications...CO 4Result Comment: [04/14/2015] Measles mumps rubella titer Medications Advair Diskus 500 mcg-50 mcg inhalation powder 1, puffs, Inhalation, 2 times a day, # 1 each, Refills 12, Tot. Refills 12, Maintenance, 12/24/19 13:40:00 EDT, Route to Pharmacy Electronically, [id number], [facility], 161, cm, 06/12/19 8:56:00 EDT, Height, 106,... Start Date: 12/24/19 Status: Ordered Albuterol (Eqv-ProAir HFA) 90 mcg/inh inhalation aerosol 2 puffs, Inhalation, 4 times a day, PRN NEEDED FOR WHEEZING, # 18 Gm, 10 Refills, Maintenance, 06/07/20 14:34:00 EST, [facility], 50, INHALE 2 PUFFS BY MOUTH 4 TIMES DAILY NEEDED FORWHEEZING, 161, cm, 02/10/20 14:26:00 EST, Height, 1... Start Date: 06/07/20 Status: Ordered albuterol-ipratropium 3 mg-0.5 mg/3 ml inhalation solution 3 mL, Neb, 4 times a day, PRN shortness of breath, # 180 mL, 11 Refills, Maintenance, 06/18/20 9:36:00 EDT, Solution, [facility], 3 mL Neb 4 times a day,PRN:shortness of breath, 161, cm, 06/18/20 9:18:00 EDT, Height, 106, kg, 09/11/18 13:37... Start Date: 06/18/20 Status: Ordered Benadryl 25 mg oral capsule See Instructions, 2 capsule By Mouth PRN, 0 Refills, Maintenance, 07/24/18 11:01:32 EDT Start Date: 07/24/18 Status: Ordered clomiPHENE 50 mg oral tablet 150 mg, 3, tablet, By Mouth, Daily, for 5 days, # 15 tablet, Refills 0, Tot. Refills 0, Acute 08/24/20 14:56:00 EDT, 08/19/20 14:56:00 EDT, Route to Pharmacy Electronically, [facility] 1966, Partial fill upon patient request if the prescription... Start Date: 08/19/20 Stop Date: 08/24/20 Status: Ordered Dexilant 60 mg oral delayed release capsule 1 capsule = 60 mg, By Mouth, Daily, # 90 capsule, 3 Refills, Maintenance, 12/24/19 13:41:00 EDT, ECCapsule, [facility], 161, cm, 06/12/19 8:56:00 [...] tablet, 11 Refills, Maintenance, 02/10/20 14:25:00 EST, [facility], 161, c... Start Date: [...] each, 11 Refills, Maintenance, 06/18/20 9:35:00 EDT, [facility], 161, cm, 219:18:00 EDT, [...] 07/09/20 16:28:00 EDT, Route to Pharmacy Electronically, [facility], Partial fill upon patient [...]
--- OUTSIDE RECORDS SUMMARY | 2024-02-22 11:40 | XMS_ITS | Continuity of Care Document ---
Author Organization [facility] Address Unknown Care Team Providers Care Expanded Function Dental Assistant Name Role Phone Nanci Meelndez MD Primary Care Physician Encounter [facility] Date(s): 04/28/21 - 06/05/21 [facility] Attending Physician: Jalyn Cabrera MD Allergies, Adverse Reactions, [...] 1Result Comment: [facility]# [id number] PT. TOLERATED INJ. WITHOUT COMPLICATIONS....CO 2Result Comment: [facility]# [id number] PT. TOLERATED INJ. WITHOUT COMPLICATIONS...CO 3Result Comment: [...] kg, 02/12/21 17:08:00 EST, DrRenee.. Start Date: 04/28/21 Status: Ordered Albuterol (Eqv-ProAir HFA) 90 mcg/inh inhalation aerosol 2 puffs, Inhalation, 4 times a day, PRN NEEDED FOR WHEEZING, # 18 Gm, 10 Refills, Maintenance, 06/07/20 14:34:00 EST, [facility], 50, INHALE 2 PUFFS BY MOUTH 4 TIMES DAILY NEEDED FORWHEEZING, 161, cm, 02/10/20 14:26:00 EST, Height, 1... Start Date: 06/07/20 Status: Ordered albuterol 0.083% inhalation solution 3 mL = 2.5 mg, Inhalation, Every 6 hours, PRN for wheezing, # 25 each, 0 Refills, Maintenance, 04/04/21 12:33:00 EST, Solution, [facility], replaces previous Rx for albuterol-ipatropium solution, 162, cm, 03/10/21 14:17:00 EST, Height, 105.... Start Date: 04/04/21 Status: Ordered albuterol-ipratropium 3 mg-0.5 mg/3 ml inhalation solution 3 mL, Neb, 4 times a day, PRN shortness of breath, # 180 mL, 2 Refills, Maintenance, 04/04/21 8:55:00 EST, Solution, [facility], 3 mL Neb 4 times a day,PRN:shortness of breath, 162, cm, 03/10/21 14:17:00 EST, Height, 105.2, kg, 02/12/21 17:... Start Date: 04/04/21 Status: Ordered Apri 0.15 mg-0.03 mg oral tablet 1 tablet, By Mouth, Daily, start first tablet today, # 1 pack/packet, 3 Refills, Maintenance, 12/09/20 13:48:00 EDT, [facility], Partial fill upon [...] 0 Refills, Maintenance, 02/11/21 12:37:00 EST, ECCapsule, [facility], 163, cm, 01/01/21 10:10:00 EDT, Height Start Date: 02/11/21 Status: Ordered Endometrin 100 mg vaginal insert = 100 mg, Vaginally, 3 times a day, to add on day of transfer, # 90 supp, 5 Refills, Maintenance, 04/28/21 9:20:00 EST, [facility], Partial fill upon patient [...] each, Refills 5, Route to Pharmacy Electronically, [id number], [facility], 163, cm, 01/01/21 10:10:00 EDT, Height Start Date: 01/28/21 Status: Ordered metFORMIN 500 mg oral tablet, extended release See Instructions, take 1 tablet po w/dinner x1 wk, then increase to 2 tablets x 1-2 wks, then increase to 3 tablets 1-2 wks,then 4 tabs with dinner every day., # 120 tablet, 11 Refills, Maintenance, 03/16/21 11:27:00 EST, [facility], 162, c... Start Date: [...] each, 11 Refills, Maintenance, 06/18/20 9:35:00 EDT, [facility], 161, cm, :18:00 EDT, Height, 106, kg, 09/11/18 13:37:00 EDT... Start Date: 06/18/20 Status: Ordered oxyCODONE 5 mg oral tablet 5 mg, 1, tablet, By Mouth, Every 6 hours, PRN, # 8 tablet, Refills 0, Tot. Refills 0, Maintenance, Pain , Mild, 01/18/21 9:22:00 EDT, Route to Pharmacy Electronically, [facility], Partial fill upon patient request if the prescription is for... Start Date: 01/18/21 Status: Ordered Multivitamins By Mouth, Daily, 0 Refills, Maintenance, 06/05/18 11:27:06 EST Start Date: 06/05/18 Status: Ordered progesterone 50 mg/mL intramuscular solution 50mg/ml 1 ml (sesame oil), Intramuscular, Daily, # 30 mL, 5 Refills, Maintenance, 04/28/21 9:19:00 EST, [facility], Partial fill upon patient request if the prescription is for a schedule II opioid drug., 162, cm, 03/10/21 14:17:00 ES... Start Date: 04/28/21 Status: Ordered Provera 10 mg oral tablet 10 mg, 1, tablet, By Mouth, Daily, # 10 tablet, Refills 0, Tot. Refills 0, Maintenance, 04/04/21 10:58:00 EST, Route to Pharmacy Electronically, [facility], Partial fill upon [...] 01/18/21 9:22:00 EDT, [facility], Partial fill upon patient request if the... Start Date: 01/18/21 Status: Ordered Valium 5 mg oral tablet 5 mg, 1, tablet, By Mouth, Once, One tablet one hour prior to procedure, may repeat x 1 as needed for anxiety, # 2 tablet, Refills 0, Tot. Refills 0, Soft Stop, 06/04/21 13:10:00 EST, [facility], Partial fi... Start Date: 06/04/21 Status: Ordered Vitamin D3 1000 intl units [...] patch, 5 Refills, Maintenance, 04/28/21 9:19:00 EST, [facility], Partial fill upon patient [...]
--- OUTSIDE RECORDS SUMMARY | 2024-02-22 11:40 | XMS_ITS | Continuity of Care Document ---
Author [facility] Address [address] [place] [address], [address] [place] [address]- Care Team Providers Care Disability Case Manager Name Role Phone Al DIEGO, Nanci Segovia Primary Care Physician [phone] Encounter [facility] Date(s): 12/06/21 - 04/05/22 [facility] [address] [facility], [address] [place] [address]- Attending Physician: Raymundo DIEGO [OB], Neli Gunter Referring Physician: Adela Sorto MD Allergies, Adverse [...] Vaccine 11/21/89 Recor ded 1Result Comment: [facility]# [id number] PT. TOLERATED INJ. WITHOUT COMPLICATIONS....CO 2Result Comment: [facility]# [id number] PT. TOLERATED INJ. WITHOUT COMPLICATIONS...CO 3Result Comment: [04/06/2016] pt. tolerated inj. without complications...CO 4Result Comment: [04/14/2015] Measles mumps rubella titer Medications acetaminophen 325 mg oral tablet 650 mg, By Mouth, Every 4 hours, PRN, not to exceed 4000 mg/day, # 60 tablet, Refills 0, Tot. Refills 0, Maintenance, Pain , Mild, 02/08/22 8:05:00 EST, Route to Pharmacy Electronically, [facility] 1966, Partial fill upon patient request if the... Start Date: 02/08/22 Status: Ordered Albuterol (Eqv-ProAir HFA) 90 mcg/inh inhalation aerosol See Instructions, INHALE 2 PUFFS BY MOUTH 4 TIMES DAILY NEEDED FOR WHEEZING, # 9 Gm, 6 Refills, 08/17/21 9:51:00 EDT, [facility], 25, INHALE 2 PUFFS BY MOUTH 4 TIMES DAILY NEEDED FORWHEEZING, 162, cm, 08/03/21 16:59:00 EDT, Height, 1... Start Date: 08/17/21 Status: Ordered albuterol 0.083% inhalation solution 3 mL = 2.5 mg, Inhalation, Every 6 hours, PRN for wheezing, # 100 each, 5 Refills, Maintenance, 08/17/21 9:51:00 EDT, Solution, [facility] 1966, replaces previous Rx for [...] mL, 0 Refills, Maintenance, 03/17/22 15:45:00 EST, [facility], Partial fill upon patient request if the prescription is for a schedule II opioid drug., 163, cm, 03/17/22... Start Date: 03/17/22 Stop Date: 03/31/22 Status: Ordered Dexilant 60 mg oral delayed release capsule See Instructions, Take 1 capsule by mouth once daily, # 90 capsule, 0 Refills, 03/14/22 14:26:00 EST, [facility], 163, cm, 02/27/22 9:06:00 EST, Height, 128.2, kg, 02/05/22 12:22:00 EST, Dry Weight Start Date: 03/14/22 Status: Ordered Diflucan 150 mg oral tablet 1 tablet = 150 mg, By Mouth, Once, # 1 tablet, 0 Refills, Soft Stop, 03/01/22 15:59:00 EST, Tablet,[facility], Partial fill upon patient request [...] tablet, 11 Refills, Maintenance, 08/18/21 16:40:00EDT, Tablet, [facility], Partial fill upon patient request [...] 08/17/21 9:51:00 EDT, Route to Pharmacy Electronically, [id number], [facility], 162, cm, 08/03/21 16:59:00 EDT, Height, 110, kg, 08/03/21 1... Start Date: 08/17/21 Status: Ordered ibuprofen 800 mg oral tablet 800 mg, 1, tablet, By Mouth, Every 8 hours, PRN, not to exceed 3200 mg/day with food or milk, # 40 tablet, Refills 0, Tot. Refills 0, Maintenance, Pain , Moderate, 02/08/22 8:05:00 EST, Route to Pharmacy Electronically, [facility], Partial... Start Date: 02/08/22 [...] Team Personnel Name: Nanci Melendez MD Position: [facility] Primary Care Physician Member Role: PCP Address: Address: [address] [place] [address]- Care Team Related Persons Name: SEAN RITCHIE Address: [id number] Address: home [address] [place] [address] [place] Name: DERRELL RITCHIE Address: home [address] [address] Name: DERRELL RITCHIE Address: home [address] [place] [address] Name: DERRELL RITCHIE Address: [address] [address] Name: SHEBA CANO Address: [address] [address] Name: DAYANNA CANO Address: [address] [address]
--- OUTSIDE RECORDS SUMMARY | 2024-02-22 11:40 | XMS_ITS | Continuity of Care Document ---
Author Organization [facility] Address [address] [place] [address]- Care Team Providers Care Pharmacy Service Associate Name Role Phone Al DIEGO, Nanci Segovia Primary Care Physician [phone] Encounter [facility] Date(s): 04/06/21 - 05/06/21 [facility] [address] [place] [address]- Allergies, Adverse Reactions, Alerts Substance Reaction Severity [...] Virus Vaccine 11/21/89 Recor ded 1Result Comment: [facility]# [id number] PT. TOLERATED INJ. WITHOUT COMPLICATIONS....CO 2Result Comment: [facility]# [id number] PT. TOLERATED INJ. WITHOUT COMPLICATIONS...CO 3Result Comment: [...] EST, Height, 105.2, kg, 02/12/21 17:08:00 EST, .. Start Date: 04/28/21 Status: Ordered Albuterol (Eqv-ProAir HFA) 90 mcg/inh inhalation aerosol 2 puffs, Inhalation, 4 times a day, PRN NEEDED FOR WHEEZING, # 18 Gm, 10 Refills, Maintenance, 06/07/20 14:34:00 EST, [facility], 50, INHALE 2 PUFFS BY MOUTH 4 TIMES DAILY NEEDED FORWHEEZING, 161, cm, 02/10/20 14:26:00 EST, Height, 1... Start Date: 06/07/20 Status: Ordered albuterol 0.083% inhalation solution 3 mL = 2.5 mg, Inhalation, Every 6 hours, PRN for wheezing, # 25 each, 0 Refills, Maintenance, 04/04/21 12:33:00 EST, Solution, [facility], replaces previous Rx for albuterol-ipatropium solution, 162, cm, 03/10/21 14:17:00 EST, Height, 105.... Start Date: 04/04/21 Status: Ordered albuterol-ipratropium 3 mg-0.5 mg/3 ml inhalation solution 3 mL, Neb, 4 times a day, PRN shortness of breath, # 180 mL, 2 Refills, Maintenance, 04/04/21 8:55:00 EST, Solution, [facility], 3 mL Neb 4 times a day,PRN:shortness of breath, 162, cm, 03/10/21 14:17:00 EST, Height, 105.2, kg, 02/12/21 17:... Start Date: 04/04/21 Status: Ordered Apri 0.15 mg-0.03 mg oral tablet 1 tablet, By Mouth, Daily, start first tablet today, # 1 pack/packet, 3 Refills, Maintenance, 12/09/20 13:48:00 EDT, [facility], Partial fill upon patient [...] 0 Refills, Maintenance, 02/11/21 12:37:00 EST, ECCapsule, [facility], 163, cm, 01/01/21 10:10:00 EDT, Height Start Date: 02/11/21 Status: Ordered Endometrin 100 mg vaginal insert = 100 mg, Vaginally, 3 times a day, to add on day of transfer, # 90 supp, 5 Refills, Maintenance, 04/28/21 9:20:00 EST, [facility], Partial fill upon patient [...] each, Refills 5, Route to Pharmacy Electronically, [id number], [facility], 163, cm, 01/01/21 10:10:00 EDT, Height Start Date: 01/28/21 Status: Ordered metFORMIN 500 mg oral tablet, extended release See Instructions, take 1 tablet po w/dinner x1 wk, then increase to 2 tablets x 1-2 wks, then increase to 3 tablets 1-2 wks,then 4 tabs with dinner every day., # 120 tablet, 11 Refills, Maintenance, 03/16/21 11:27:00 EST, [facility], 162, c... Start Date: [...] each, 11 Refills, Maintenance, 06/18/20 9:35:00 EDT, [facility], 161, cm, 219:18:00 EDT, Height, 106, kg, 09/11/18 13:37:00 EDT... Start Date: 06/18/20 Status: Ordered oxyCODONE 5 mg oral tablet 5 mg, 1, tablet, By Mouth, Every 6 hours, PRN, # 8 tablet, Refills 0, Tot. Refills 0, Maintenance, Pain , Mild, 01/18/21 9:22:00 EDT, Route to Pharmacy Electronically, [facility] 1966, Partial fill upon patient request if the prescription is for... Start Date: 01/18/21 Status: Ordered Multivitamins By Mouth, Daily, 0 Refills, Maintenance, 06/05/18 11:27:06 EST Start Date: 06/05/18 Status: Ordered progesterone 50 mg/mL intramuscular solution 50mg/ml 1 ml (sesame oil), Intramuscular, Daily, # 30 mL, 5 Refills, Maintenance, 04/28/21 9:19:00 EST, [facility], Partial fill upon patient request if the prescription is for a schedule II opioid drug., 162, cm, 03/10/21 14:17:00 ES... Start Date: 04/28/21 Status: Ordered Provera 10 mg oral tablet 10 mg, 1, tablet, By Mouth, Daily, # 10 tablet, Refills 0, Tot. Refills 0, Maintenance, 04/04/21 10:58:00 EST, Route to Pharmacy Electronically, [facility] 1966, Partial fill upon patient [...] 01/18/21 9:22:00 EDT, Route to Pharmacy Electronically, [facility] 1966, Partial fill upon patient [...] patch, 5 Refills, Maintenance, 04/28/21 9:19:00 EST, [facility], Partial fill upon patient [...]
--- OUTSIDE RECORDS SUMMARY | 2024-02-22 11:40 | XMS_ITS | Continuity of Care Document ---
Author Organization [facility] Address [address], [address] [address]- Care Team Providers Care Lining Printer Name Role Phone Nanci Melendez MD Primary Care Physician Encounter [facility] Date(s): 03/01/21 - 03/31/21 [facility] [address] [place] [address]- Allergies, Adverse Reactions, Alerts Substance Reaction Severity [...] 1Result Comment: [facility]# [id number] PT. TOLERATED INJ. WITHOUT COMPLICATIONS....CO 2Result Comment: [facility]# [id number] PT. TOLERATED INJ. WITHOUT COMPLICATIONS...CO 3Result Comment: [...] Gm, 10 Refills, Maintenance, 06/07/20 14:34:00 EST, [facility] 1967, 50, INHALE 2 PUFFS BY MOUTH 4 TIMES DAILY NEEDED FORWHEEZING, 161, cm, 02/10/20 14:26:00 EST, Height, 1... Start Date: 06/07/20 Status: Ordered albuterol-ipratropium 3 mg-0.5 mg/3 ml inhalation solution 3 mL, Neb, 4 times a day, PRN shortness of breath, # 180 mL, 11 Refills, Maintenance, 06/18/20 9:36:00 EDT, Solution, [facility] 1967, 3 mL Neb 4 times a day,PRN:shortness of breath, 161, cm, 06/18/20 9:18:00 EDT, Height, 106, kg, 09/11/18 13:37... Start Date: 06/18/20 Status: Ordered Apri 0.15 mg-0.03 mg oral tablet 1 tablet, By Mouth, Daily, start first tablet today, # 1 pack/packet, 3 Refills, Maintenance, 12/09/20 13:48:00 EDT, [facility] 1967, Partial fill upon [...] 0 Refills, Maintenance, 02/11/21 12:37:00 EST, ECCapsule, [facility], 163, cm, 01/01/21 10:10:00 EDT, Height Start Date: 02/11/21 Status: Ordered doxycycline hyclate 100 mg oral tablet 1 tablet = 100 mg, By Mouth, 2 times a day, # 28 tablet, 5 Refills, Maintenance, 12/31/20 8:23:00 EDT, [facility], Partial fill upon patient [...] each, Refills 5, Route to Pharmacy Electronically, [id number], [facility], 163, cm, 01/01/21 10:10:00 EDT, Height Start Date: 01/28/21 Status: Ordered Gonal-F 1050 units subcutaneous injection = 150 International_Units, Subcutaneous Injection, Daily, # 2 kit, 5 Refills, Maintenance, :23:00 EDT, [facility], Partial fill upon patient [...] tablet, 11 Refills, Maintenance, 03/16/21 11:27:00 EST, [facility], 162, c... Start [...] each, 11 Refills, Maintenance, 06/18/20 9:35:00 EDT, [facility], 161, cm, 03/19/219:18:00 EDT, Height, 106, kg, 09/11/18 13:37:00 EDT... Start Date: 06/18/20 Status: Ordered oxyCODONE 5 mg oral tablet 5 mg, 1, tablet, By Mouth, Every 6 hours, PRN, # 8 tablet, Refills 0, Tot. Refills 0, Maintenance, Pain , Mild, 01/18/21 9:22:00 EDT, Route to Pharmacy Electronically, [facility] 1966, Partial fill upon patient request if the prescription is for... Start Date: 01/18/21 Status: Ordered Pregnyl 65764 u injectable powder for injection = 1,000 units, Intramuscular, Once, For use as trigger shot. Use 3 mL of diluent to reconstitute powder. Draw and administer 0.3 mL of reconsituted pregnyl for total dose of 1000 units., # 1 kit, 5 Refills, Soft Stop, 12/31/20 8:24:00 EDT, [facility]... Start Date: 12/31/20 Status: Ordered Multivitamins By Mouth, Daily, 0 Refills, Maintenance, 06/05/18 11:27:06 EST Start Date: 06/05/18 Status: Ordered progesterone 50 mg/mL intramuscular solution 50mg/ml 1 ml (sesame oil), Intramuscular, Daily, # 30 mL, 5 Refills, Maintenance, 02/03/21 11:55:00EDT, [facility], Partial fill upon patient request if the prescription is for a schedule II opioid drug., 163, cm, 01/01/21 10:10:00 E... Start Date: 02/03/21 Status: Ordered Prometrium 200 mg oral capsule See Instructions, vaginally 3 times a day, # 90 tablet, 5 Refills, Maintenance, 12/31/20 8:22:00 EDT, [facility], Partial fill upon patient request if [...] 01/18/21 9:22:00 EDT, Route to Pharmacy Electronically, [facility] 1966, Partial fill upon [...] patch, 5 Refills, Maintenance, 12/31/20 8:23:00 EDT, [facility], Partial fill upon patient request if the prescription is for a schedule II opio... Start Date: 12/31/20 Status: Ordered yes yes, See Instructions, # 2 each, Refills 5, Tot. Refills 5, Maintenance, Graham Capped Insulin Syringe for lupron administration, 12/31/20 [...]
--- OUTSIDE RECORDS SUMMARY | 2024-02-22 11:40 | XMS_ITS | Continuity of Care Document ---
Author Organization [facility] n[facility] Address [address], [address]t [place] [address]- Care Team Providers Care Combination Presser Name Role Phone Al DIEGO, Nanci Segovia Primary Care Physician [phone] [place] [facility] [place]s): 11/30/21 - 12/07/21 [facility] [address], 4th [address] [place], [place] [address] Attending Physician: Raymundo DIEGO [OB], Neil Gunter Allergies, Adverse Reactions, Alerts Substance Reaction Severity [...] Vaccine 11/21/89 Recor ded 1Result Comment: [facility]# [id number] PT. TOLERATED INJ. WITHOUT COMPLICATIONS....CO 2Result Comment: [facility]# [id number] PT. TOLERATED INJ. WITHOUT COMPLICATIONS...CO 3Result Comment: [04/06/2016] pt. tolerated inj. without complications...CO 4Result Comment: [04/14/2015] Measles mumps rubella titer Medications Albuterol (Eqv-ProAir HFA) 90 mcg/inh inhalation aerosol See Instructions, INHALE 2 PUFFS BY MOUTH 4 TIMES DAILY NEEDED FOR WHEEZING, # 9 Gm, 6 Refills, 08/17/21 9:51:00 EDT, [facility], 25, INHALE 2 PUFFS BY MOUTH 4 TIMES DAILY NEEDED FORWHEEZING, 162, cm, 08/03/21 16:59:00 EDT, Height, 1... Start Date: 08/17/21 Status: Ordered albuterol 0.083% inhalation solution 3 mL = 2.5 mg, Inhalation, Every 6 hours, PRN for wheezing, # 100 each, 5 Refills, Maintenance, 08/17/21 9:51:00 EDT, Solution, [facility], replaces previous Rx for albuterol-ipatropium [...] once daily, # 90 capsule, 1 Refills, [facility], 162, cm, 09/16/21 15:34:00 EDT, [...] tablet, 11 Refills, Maintenance, 08/18/21 16:40:00EDT, Tablet, [facility], Partial fill upon [...] 08/17/21 9:51:00 EDT, Route to Pharmacy Electronically, [id number], [facility], 162, cm, 08/03/21 16:59:00 [...] tablet, 11 Refills, Maintenance, 03/16/21 11:27:00 EST, [facility], 162, c... Start [...] each, 11 Refills, Maintenance, 06/18/20 9:35:00 EDT, [facility], 161, cm, 219:18:00 EDT, [...] Team Personnel Name: Nanci Melendez MD Address: [address] [place] [address]
--- OUTSIDE RECORDS SUMMARY | 2024-02-22 11:40 | XMS_ITS | Continuity of Care Document ---
Author Organization [facility] Address [address], [address]t [address] [place] [address]- Care Team Providers Care Mangle Tender Cloth Name Role Phone Nanci Melendez MD Primary Care Physician [place] [facility] 10[place]12[place] - 10/19/20 [facility] [address] [place] [address], 4th [address] [place] [address]- Attending Physician: Cheryl Beauchamp MD Referring Physician: Nanci Melendez MD Allergies, [...] Recor ded 1Result Comment: [facility]# [id number] PT. TOLERATED INJ. WITHOUT COMPLICATIONS....CO 2Result Comment: [facility]# [id number] PT. TOLERATED INJ. WITHOUT COMPLICATIONS...CO 3Result Comment: [04/06/2016] pt. tolerated inj. without complications...CO 4Result Comment: [04/14/2015] Measles mumps rubella titer Medications Advair Diskus 500 mcg-50 mcg inhalation powder 1, puffs, Inhalation, 2 times a day, # 1 each, Refills 12, Tot. Refills 12, Maintenance, 12/24/19 13:40:00 EDT, Route to Pharmacy Electronically, [id number], [facility], 161, cm, 06/12/19 8:56:00 EDT, Height, 106,... Start Date: 12/24/19 Status: Ordered Albuterol (Eqv-ProAir HFA) 90 mcg/inh inhalation aerosol 2 puffs, Inhalation, 4 times a day, PRN NEEDED FOR WHEEZING, # 18 Gm, 10 Refills, Maintenance, 06/07/20 14:34:00 EST, [facility], 50, INHALE 2 PUFFS BY MOUTH 4 TIMES DAILY NEEDED FORWHEEZING, 161, cm, 02/10/20 14:26:00 EST, Height, 1... Start Date: 06/07/20 Status: Ordered albuterol-ipratropium 3 mg-0.5 mg/3 ml inhalation solution 3 mL, Neb, 4 times a day, PRN shortness of breath, # 180 mL, 11 Refills, Maintenance, 06/18/20 9:36:00 EDT, Solution, [facility], 3 mL Neb 4 times a day,PRN:shortness of breath, 161, cm, 06/18/20 9:18:00 EDT, Height, 106, kg, 09/11/18 13:37... Start Date: 06/18/20 Status: Ordered Apri 0.15 mg-0.03 mg oral tablet 1 tablet, By Mouth, Daily, start first tablet today, # 1 pack/packet, 3 Refills, Maintenance, 09/10/20 10:08:00 EDT, [facility], Partial fill upon [...] 3 Refills, Maintenance, 12/24/19 13:41:00 EDT, ECCapsule, [facility], 161, cm, 06/12/19 8:56:00 [...] tablet, 11 Refills, Maintenance, 02/10/20 14:25:00 EST, [facility], 161, c... Start Date: [...] each, 11 Refills, Maintenance, 06/18/20 9:35:00 EDT, [facility], 161, cm, 219:18:00 [...] recent to oldest [Reference Range]: 1 Height 161 cm (10/12/20 10:30 AM) Weight 111.2 kg (10/12/20 10:30 AM) Pulse Rate [55-90 bpm] 73 bpm (10/12/20 10:30 AM) Body Mass Index [18.5-24.99] 42.9 *>HHI* (10/12/20 10:30 AM) Blood Pressure [90-138/55-84 mm Hg] 107/ 61mm Hg (10/12/20 10:30 AM) Blood pressure sites Arm, right (10/12/20 10:30 AM) Weight Obtained Via Standing scale (10/12/20 10:30 AM) Social History Social History Type Response Smoking Status Never smoker; Tobacc o user in household: No entered on: 07/02/15 Sex
--- OUTSIDE RECORDS SUMMARY | 2024-02-22 11:40 | XMS_ITS | Continuity of Care Document ---
Author Organization [facility] Address [address], [address] [place] [address]- Care Team Providers Care Agency Director Name Role Phone Nanci Melendez MD Primary Care Physician [phone] Encounter [facility] Date(s): 05/19/22 - 08/27/22 [facility] Susanenrique [facility] [address], [address] [place], [place] [address] Attending Physician: Adela Sorto MD Referring Physician: Not on Staff, Referring MD [...] Vaccine 11/21/89 Recor ded 1Result Comment: [facility]# [id number] PT. TOLERATED INJ. WITHOUT COMPLICATIONS....CO 2Result Comment: [facility]# [id number] PT. TOLERATED INJ. WITHOUT COMPLICATIONS...CO 3Result Comment: [04/06/2016] pt. tolerated inj. without complications...CO 4Result Comment: [04/14/2015] Measles mumps rubella titer Medications acetaminophen 325 mg oral tablet 650 mg, By Mouth, Every 4 hours, PRN, not to exceed 4000 mg/day, # 60 tablet, Refills 0, Tot. Refills 0, Maintenance, Pain , Mild, 02/08/22 8:05:00 EST, Route to Pharmacy Electronically, [facility] 1967, Partial fill upon patient request if the... Start Date: 02/08/22 Status: Ordered Albuterol (Eqv-ProAir HFA) 90 mcg/inh inhalation aerosol See Instructions, INHALE 2 PUFFS BY MOUTH 4 TIMES DAILY NEEDED FOR WHEEZING, # 9 Gm, 6 Refills, 08/17/21 9:51:00 EDT, [facility] 1967, 25, INHALE 2 [...] mL, 0 Refills, Maintenance, 03/17/22 15:45:00 EST, [facility], Partial fill upon patient request if the prescription is for a schedule II opioid drug., 163, cm, 03/17/22... Start Date: 03/17/22 Stop Date: 03/31/22 Status: Ordered Dexilant 60 mg oral delayed release capsule See Instructions, Take 1 capsule by mouth once daily, # 90 capsule, 0 Refills, 03/14/22 14:26:00 EST, [facility], 163, cm, 02/27/22 9:06:00 EST, Height, 128.2, kg, 02/05/22 12:22:00 EST, Dry Weight Start Date: 03/14/22 Status: Ordered Diflucan 150 mg oral tablet 1 tablet = 150 mg, By Mouth, Once, # 1 tablet, 0 Refills, Soft Stop, 03/01/22 15:59:00 EST, Tablet,[facility], Partial fill upon patient request [...] tablet, 11 Refills, Maintenance, 08/18/21 16:40:00EDT, Tablet, [facility], Partial fill upon patient request [...] 05/04/22 9:46:00 EST, Route to Pharmacy Electronically, [id number], [facility], 163, cm, 05/01/22 14:15:00 EST, Height, 128.2, kg, 02/05/22... Start Date: 05/04/22 Status: Ordered ibuprofen 800 mg oral tablet 800 mg, 1, tablet, By Mouth, Every 8 hours, PRN, not to exceed 3200 mg/day with food or milk, # 40 tablet, Refills 0, Tot. Refills 0, Maintenance, Pain , Moderate, 02/08/22 8:05:00 EST, Route to Pharmacy Electronically, [facility], Partial... Start Date: 02/08/22 [...] Refills, Maintenance, 08/16/22 9:41:00 EDT, [facility] [id number], 163, cm, 05/01/22 14:15:00 EST, Height, 128.2, [...] Team Personnel Name: Adela Sorto MD Position: [facility] DIRECTOR COMMUNICATIONS Member Role: Lifetime DIRECTOR COMMUNICATIONS Physician Address: Address: [address] [place] [address], [address] [facility] [place] [address]- Name: Nanci Melendez MD Position: [facility] Physician - Primary Care Member Role: PCP Address: Address: [address] [place] [address]- Care Team Related Persons Name: SEAN RITCHIE Address: [address] Address: [address] [place] [address] Name: DERRELL RITCHIE Address: home [address] [place] [address] Name: DERRELL RITCHIE Address: home [address] [place] [address] Name: DERRELL RITCHIE Address: [address] [place] [address] Name: SHEBA CANO Address: [address] [place] [address] Name: DAYANNA CANO Address: [address] [place] [address]
--- OUTSIDE RECORDS SUMMARY | 2024-02-22 11:40 | XMS_ITS | Continuity of Care Document ---
Author Organization [facility] Address [address] [place] [address]- Care Team Providers Care Skin Piler Name Role Phone Al DIEGO, Nanci Segovia Primary Care Physician Encounter [facility] Date(s): 01/05/22 - 02/04/22 [facility] [address] [place] [address] Attending Physician: Marely Fu Admitting Physician: Marely Fu Referring Physician: AdmtrMarely Allergies, Adverse Reactions, Alerts [...] Virus Vaccine 11/21/89 Recor ded 1Result Comment: [facility]# [id number] PT. TOLERATED INJ. WITHOUT COMPLICATIONS....CO 2Result Comment: [facility]# [id number] PT. TOLERATED INJ. WITHOUT COMPLICATIONS...CO 3Result Comment: [04/06/2016] pt. tolerated inj. without complications...CO 4Result Comment: [04/14/2015] Measles mumps rubella titer Medications Albuterol (Eqv-ProAir HFA) 90 mcg/inh inhalation aerosol See Instructions, INHALE 2 PUFFS BY MOUTH 4 TIMES DAILY NEEDED FOR WHEEZING, # 9 Gm, 6 Refills, 08/17/21 9:51:00 EDT, [facility], 25, INHALE 2 PUFFS BY MOUTH 4 TIMES DAILY NEEDED FORWHEEZING, 162, cm, 08/03/21 16:59:00 EDT, Height, 1... Start Date: 08/17/21 Status: Ordered albuterol 0.083% inhalation solution 3 mL = 2.5 mg, Inhalation, Every 6 hours, PRN for wheezing, # 100 each, 5 Refills, Maintenance, 08/17/21 9:51:00 EDT, Solution, [facility], replaces previous Rx for albuterol-ipatropium [...] once daily, # 90 capsule, 1 Refills, [facility], 162, cm, 09/16/21 15:34:00 EDT, [...] Refills, Maintenance, 08/18/21 16:40:00EDT, Tablet, [facility], Partial fill upon [...] 08/17/21 9:51:00 EDT, Route to Pharmacy Electronically, [id number], [facility], 162, cm, 08/03/21 16:59:00 [...] tablet, 11 Refills, Maintenance, 03/16/21 11:27:00 EST, [facility] 1967, 162, cm, 03/10/21 14:17:00 EST, Height, [...] Personnel Name: Nanci Melendez MD Address: Address: [address] [place] [address]
--- OUTSIDE RECORDS SUMMARY | 2024-02-22 11:40 | XMS_ITS | Continuity of Care Document ---
Author Organization [facility] Address [address] [place] [address]- Care Team Providers Care Survey Research Teacher Name Role Phone Nanci Melendez MD Primary Care Physician [phone] [place] [facility] Date(s): 01/18/21 - 12/14/[address] [address]- Discharge Disposition: A-D/C Home Attending Physician: Jalyn Cabrera MD Admitting Physician: Jalyn Cabrera MD Referring Physician: Jalyn Cabrera MD Allergies, [...] [facility] [id number] PT. TOLERATED INJ. WITHOUT COMPLICATIONS....CO 2Result Comment: [facility] [id number] PT. TOLERATED INJ. WITHOUT COMPLICATIONS...CO 3Result Comment: [04/06/2016] pt. tolerated inj. without complications...CO 4Result Comment: [04/14/2015] Measles mumps rubella titer Medications Albuterol (Eqv-ProAir HFA) 90 mcg/inh inhalation aerosol See Instructions, INHALE 2 PUFFS BY MOUTH 4 TIMES DAILY NEEDED FOR WHEEZING, # 9 Gm, 6 Refills, 08/17/21 9:51:00 EDT, [facility] 1967, 25, INHALE 2 PUFFS BY MOUTH 4 TIMES DAILY NEEDED FORWHEEZING, 162, cm, 08/03/21 16:59:00 EDT, Height, 1... Start Date: 08/17/21 Status: Ordered albuterol 0.083% inhalation solution 3 mL = 2.5 mg, Inhalation, Every 6 hours, PRN for wheezing, # 100 each, 5 Refills, Maintenance, 08/17/21 9:51:00 EDT, Solution, [facility] 1966, replaces previous Rx for [...] once daily, # 90 capsule, 1 Refills, [facility] 1967, 162, cm, 09/16/21 15:34:00 [...] tablet, 11 Refills, Maintenance, 08/18/21 16:40:00EDT, Tablet, [facility] 1967, Partial fill upon patient [...] 08/17/21 9:51:00 EDT, Route to Pharmacy Electronically, [id number], [facility], 162, cm, 08/03/21 16:59:00 [...] tablet, 11 Refills, Maintenance, 03/16/21 11:27:00 EST, [facility], 162, c... Start Date: [...] each, 11 Refills, Maintenance, 06/18/20 9:35:00 EDT, [facility], 161, cm, 219:18:00 EDT, [...] Team Personnel Name: Nanci Melendez MD Address: [address] [place] [address]
--- OUTSIDE RECORDS SUMMARY | 2024-02-22 11:40 | XMS_ITS | Continuity of Care Document ---
Author Organization [facility] Address [address], [address], [place] [address]- Care Team Providers Care Regulatory Affairs Spec Name Role Phone Nanci Melendez MD Primary Care Physician [phone] [facility] Date(s): 01/04/22 - 04/30/22 [facility] [address] [place], [place] [address] Attending Physician: Estela Rosales MD Allergies, Adverse [...] Virus Vaccine 11/21/89 Recor ded 1Result Comment: [facility]# [id number] PT. TOLERATED INJ. WITHOUT COMPLICATIONS....CO 2Result Comment: [facility]# [id number] PT. TOLERATED INJ. WITHOUT COMPLICATIONS...CO 3Result Comment: [04/06/2016] pt. tolerated inj. without complications...CO 4Result Comment: [04/14/2015] Measles mumps rubella titer Medications acetaminophen 325 mg oral tablet 650 mg, By Mouth, Every 4 hours, PRN, not to exceed 4000 mg/day, # 60 tablet, Refills 0, Tot. Refills 0, Maintenance, Pain , Mild, 02/08/22 8:05:00 EST, Route to Pharmacy Electronically, [facility], Partial fill upon patient request if the... Start Date: 02/08/22 Status: Ordered Albuterol (Eqv-ProAir HFA) 90 mcg/inh inhalation aerosol See Instructions, INHALE 2 PUFFS BY MOUTH 4 TIMES DAILY NEEDED FOR WHEEZING, # 9 Gm, 6 Refills, 08/17/21 9:51:00 EDT, [facility] 1966, 25, INHALE 2 PUFFS BY MOUTH 4 TIMES DAILY NEEDED FORWHEEZING, 162, cm, 08/03/21 16:59:00 EDT, Height, 1... Start Date: 08/17/21 Status: Ordered albuterol 0.083% inhalation solution 3 mL = 2.5 mg, Inhalation, Every 6 hours, PRN for wheezing, # 100 each, 5 Refills, Maintenance, 08/17/21 9:51:00 EDT, Solution, [facility] 1966, replaces previous Rx for [...] mL, 0 Refills, Maintenance, 03/17/22 15:45:00 EST, [facility], Partial fill upon patient request if the prescription is for a schedule II opioid drug., 163, cm, 03/17/22... Start Date: 03/17/22 Stop Date: 03/31/22 Status: Ordered Dexilant 60 mg oral delayed release capsule See Instructions, Take 1 capsule by mouth once daily, # 90 capsule, 0 Refills, 03/14/22 14:26:00 EST, [facility], 163, cm, 02/27/22 9:06:00 EST, Height, 128.2, kg, 02/05/22 12:22:00 EST, Dry Weight Start Date: 03/14/22 Status: Ordered Diflucan 150 mg oral tablet 1 tablet = 150 mg, By Mouth, Once, # 1 tablet, 0 Refills, Soft Stop, 03/01/22 15:59:00 EST, [facility], Partial fill upon patient request [...] tablet, 11 Refills, Maintenance, 08/18/21 16:40:00EDT, Tablet, [facility], Partial fill upon patient request [...] 08/17/21 9:51:00 EDT, Route to Pharmacy Electronically, [id number], [facility], 162, cm, 08/03/21 16:59:00 EDT, Height, 110, kg, 08/03/21 1... Start Date: 08/17/21 Status: Ordered ibuprofen 800 mg oral tablet 800 mg, 1, tablet, By Mouth, Every 8 hours, PRN, not to exceed 3200 mg/day with food or milk, # 40 tablet, Refills 0, Tot. Refills 0, Maintenance, Pain , Moderate, 02/08/22 8:05:00 EST, Route to Pharmacy Electronically, [facility], Partial... Start Date: [...] Team Personnel Name: Nanci Melendez MD Position: [facility] Primary Care Physician Member Role: PCP Address: Address: [address] [place] [address]- Care Team Related Persons Name: SEAN RITCHIE Address: [address] Address: home [address] [place] [address] Name: DERRELL RITCHIE Address: home [address] [place] [address] Name: DERRELL RITCHIE Address: home [address] [facility] [address] [place] [address] Name: DERRELL RITCHIE Address: [address] [address] Name: SHEBA CANO Address: home [address] [place] [address] Name: DAYANNA CANO Address: [address] [place] [address]
--- OUTSIDE RECORDS SUMMARY | 2024-02-22 11:41 | XMS_ITS | Continuity of Care Document ---
Author Organization [facility] Address [address] [place] [address]- Care Team Providers Care Surveyor Helper Rod Name Role Phone Nanci Melendez MD Primary Care Physician [phone] [place] [facility] [place] - 10/15/20 [facility] [address] [place] [id number] Attending Physician: Thelma Agustin MD Referring Physician: Nanci Melendez MD Allergies, [...] Recor ded 1Result Comment: [facility]# [id number] PT. TOLERATED INJ. WITHOUT COMPLICATIONS....CO 2Result Comment: [facility]# [id number] PT. TOLERATED INJ. WITHOUT COMPLICATIONS...CO 3Result Comment: [04/06/2016] pt. tolerated inj. without complications...CO 4Result Comment: [04/14/2015] Measles mumps rubella titer Medications Advair Diskus 500 mcg-50 mcg inhalation powder 1, puffs, Inhalation, 2 times a day, # 1 each, Refills 12, Tot. Refills 12, Maintenance, 12/24/19 13:40:00 EDT, Route to Pharmacy Electronically, [id number], [facility], 161, cm, 06/12/19 8:56:00 EDT, Height, 106,... Start Date: 12/24/19 Status: Ordered Albuterol (Eqv-ProAir HFA) 90 mcg/inh inhalation aerosol 2 puffs, Inhalation, 4 times a day, PRN NEEDED FOR WHEEZING, # 18 Gm, 10 Refills, Maintenance, 06/07/20 14:34:00 EST, [facility], 50, INHALE 2 PUFFS BY MOUTH 4 TIMES DAILY NEEDED FORWHEEZING, 161, cm, 02/10/20 14:26:00 EST, Height, 1... Start Date: 06/07/20 Status: Ordered albuterol-ipratropium 3 mg-0.5 mg/3 ml inhalation solution 3 mL, Neb, 4 times a day, PRN shortness of breath, # 180 mL, 11 Refills, Maintenance, 06/18/20 9:36:00 EDT, Solution, [facility], 3 mL Neb 4 times a day,PRN:shortness of breath, 161, cm, 06/18/20 9:18:00 EDT, Height, 106, kg, 09/11/18 13:37... Start Date: 06/18/20 Status: Ordered Apri 0.15 mg-0.03 mg oral tablet 1 tablet, By Mouth, Daily, start first tablet today, # 1 pack/packet, 3 Refills, Maintenance, 09/10/20 10:08:00 EDT, [facility], Partial fill upon [...] 3 Refills, Maintenance, 12/24/19 13:41:00 EDT, ECCapsule, [facility], 161, cm, 06/12/19 8:56:00 [...] tablet, 11 Refills, Maintenance, 02/10/20 14:25:00 EST, [facility], 161, c... Start [...] each, 11 Refills, Maintenance, 06/18/20 9:35:00 EDT, [facility], 161, cm, 219:18:00 [...]
--- OUTSIDE RECORDS SUMMARY | 2024-02-22 11:41 | XMS_ITS | Continuity of Care Document ---
Author Organization [facility] Address [address] [facility], [address]t [address] [place] [address]- Care Team Providers Care Programs Director Name Role Phone Al DIEGO, Nanci Segovia Primary Care Physician [facility] Date(s): 07/05/20 - 08/04/20 [facility] [address] [place] [address], [address]th [address] [place] [id number] Allergies, Adverse Reactions, Alerts Substance [...] Virus Vaccine 11/21/89 Recor ded 1Result Comment: [facility]# [id number] PT. TOLERATED INJ. WITHOUT COMPLICATIONS....CO 2Result Comment: [facility]# [id number] PT. TOLERATED INJ. WITHOUT COMPLICATIONS...CO 3Result Comment: [04/06/2016] pt. tolerated inj. without complications...CO 4Result Comment: [04/14/2015] Measles mumps rubella titer Medications Advair Diskus 500 mcg-50 mcg inhalation powder 1, puffs, Inhalation, 2 times a day, # 1 each, Refills 12, Tot. Refills 12, Maintenance, 12/24/19 13:40:00 EDT, Route to Pharmacy Electronically, [id number], [facility], 161, cm, 06/12/19 8:56:00 EDT, Height, 106,... Start Date: 12/24/19 Status: Ordered Albuterol (Eqv-ProAir HFA) 90 mcg/inh inhalation aerosol 2 puffs, Inhalation, 4 times a day, PRN NEEDED FOR WHEEZING, # 18 Gm, 10 Refills, Maintenance, 06/07/20 14:34:00 EST, [facility], 50, INHALE 2 PUFFS BY MOUTH 4 TIMES DAILY NEEDED FORWHEEZING, 161, cm, 02/10/20 14:26:00 EST, Height, 1... Start Date: 06/07/20 Status: Ordered albuterol-ipratropium 3 mg-0.5 mg/3 ml inhalation solution 3 mL, Neb, 4 times a day, PRN shortness of breath, # 180 mL, 11 Refills, Maintenance, 06/18/20 9:36:00 EDT, Solution, [facility], 3 mL Neb 4 [...] 3 Refills, Maintenance, 12/24/19 13:41:00 EDT, ECCapsule, [facility], 161, cm, 06/12/19 8:56:00 [...] tablet, 3 Refills, Maintenance, 06/08/20 8:28:00 EST, [facility], 161, cm, 02/10/20 14:26:00 [...] tablet, 11 Refills, Maintenance, 02/10/20 14:25:00 EST, [facility], 161, c... Start Date: [...] each, 11 Refills, Maintenance, 06/18/20 9:35:00 EDT, [facility], 161, cm, 219:18:00 EDT, [...] 07/09/20 16:28:00 EDT, Route to Pharmacy Electronically, [facility], Partial fill upon patient [...]
--- OUTSIDE RECORDS SUMMARY | 2024-02-22 11:41 | XMS_ITS | Continuity of Care Document ---
Author Organization [facility] Address Unknown Care Team Providers Care Rn Training Name Role Phone Nanci Melendez MD Primary Care Physician [phone] Encounter [facility] [place] Date(s): 07/11/21 - 07/18/21 [facility] Attending Physician: Jalyn Cabrera [...] Virus Vaccine 11/21/89 Recor ded 1Result Comment: [facility]# [id number] PT. TOLERATED INJ. WITHOUT COMPLICATIONS....CO 2Result Comment: [facility]# [id number] PT. TOLERATED INJ. WITHOUT COMPLICATIONS...CO 3Result Comment: [...] Gm, 10 Refills, Maintenance, 06/07/20 14:34:00 EST, [email or web address], 50, INHALE 2 PUFFS BY MOUTH 4 TIMES DAILY NEEDED FORWHEEZING, 161, cm, 02/10/20 14:26:00 EST, Height, 1... Start Date: 06/07/20 Status: Ordered Albuterol (Eqv-ProAir HFA) 90 mcg/inh inhalation aerosol See Instructions, INHALE 2 PUFFS BY MOUTH 4 TIMES DAILY NEEDED FOR WHEEZING, # 9 Gm, 6 Refills, [facility], 25, INHALE 2 PUFFS BY MOUTH 4 TIMES DAILY NEEDED FOR WHEEZING, 162, cm, 05/03/21 9:55:00 EST, Height, 105.2, kg, 02/12/21 17:0... Start Date: 06/24/21 Status: Ordered albuterol 0.083% inhalation solution 3 mL = 2.5 mg, Inhalation, Every 6 hours, PRN for wheezing, # 100 each, 5 Refills, Maintenance, 06/24/21 12:33:00 EDT, Solution, [facility], replaces previous Rx for albuterol-ipatropium solution, 162, cm, 05/03/21 9:55:00 EST, Height, 105.... Start Date: 06/24/21 Status: Ordered Apri 0.15 mg-0.03 mg oral tablet 1 tablet, By Mouth, Daily, start first tablet today, # 1 pack/packet, 3 Refills, Maintenance, 12/09/20 13:48:00 EDT, [facility], Partial fill upon [...] 0 Refills, Maintenance, 02/11/21 12:37:00 EST, ECCapsule, [facility], 163, cm, 01/01/21 10:10:00 EDT, Height Start Date: 02/11/21 Status: Ordered Endometrin 100 mg vaginal insert = 100 mg, Vaginally, 3 times a day, to add on day of transfer, # 90 supp, 5 Refills, Maintenance, 04/28/21 9:20:00 EST, [facility], Partial fill upon patient [...] each, Refills 5, Route to Pharmacy Electronically, [id number], [facility], 163, cm, 01/01/21 10:10:00 EDT, Height Start Date: 01/28/21 Status: Ordered metFORMIN 500 mg oral tablet, extended release See Instructions, take 1 tablet po w/dinner x1 wk, then increase to 2 tablets x 1-2 wks, then increase to 3 tablets 1-2 wks,then 4 tabs with dinner every day., # 120 tablet, 11 Refills, Maintenance, 03/16/21 11:27:00 EST, [facility], 162, c... Start [...] each, 11 Refills, Maintenance, 06/18/20 9:35:00 EDT, [facility], 161, cm, 219:18:00 EDT, Height, 106, kg, 09/11/18 13:37:00 EDT... Start Date: 06/18/20 Status: Ordered oxyCODONE 5 mg oral tablet 5 mg, 1, tablet, By Mouth, Every 6 hours, PRN, # 8 tablet, Refills 0, Tot. Refills 0, Maintenance, Pain , Mild, 01/18/21 9:22:00 EDT, Route to Pharmacy Electronically, [facility], Partial fill upon patient request if the prescription is for... Start Date: 01/18/21 Status: Ordered Multivitamins By Mouth, Daily, 0 Refills, Maintenance, 06/05/18 11:27:06 EST Start Date: 06/05/18 Status: Ordered progesterone 50 mg/mL intramuscular solution 100mg/ml 2 ml (sesame oil), Intramuscular, Daily, # 60 mL, 5 Refills, Maintenance, 06/27/21 16:29:00 EDT, [facility], Partial fill upon patient request if the prescription is for a schedule II opioid drug., 162, cm, 05/03/21 9:55:00 E... Start Date: 06/27/21 Status: Ordered Provera 10 mg oral tablet 10 mg, 1, tablet, By Mouth, Daily, # 10 tablet, Refills 0, Tot. Refills 0, Maintenance, 04/04/21 10:58:00 EST, [facility], Partial fill upon patient request [...] 01/18/21 9:22:00 EDT, [facility]ically, [facility], Partial fill upon patient request if the... Start Date: 01/18/21 Status: Ordered Valium 5 mg oral tablet 5 mg, 1, tablet, By Mouth, Once, One tablet one hour prior to procedure, may repeat x 1 as needed for anxiety, # 2 tablet, Refills 0, Tot. Refills 0, Soft Stop, 06/04/21 13:10:00 EST, Route to Pharmacy Electronically, [email or web address], Partial fi... Start Date: 06/04/21 [...] weekly transdermal film, extended release See Instructions, 4 patches QOD, # 32 patch, 5 Refills, Maintenance, 06/27/21 16:29:00 EDT, [facility], Partial fill upon patient request if the prescription is for a schedule II opioid drug., 162, cm, 05/03/21 9:55:00 EST, Height, 10... Start Date: 06/27/21 Status: Ordered Problem List Condition Effective Dates [...]
--- OUTSIDE RECORDS SUMMARY | 2024-02-22 11:41 | XMS_ITS | Continuity of Care Document ---
Author Organization [facility] Address Unknown Care Team Providers Care Pattern Molder Name Role Phone Nanci Melendez MD Primary Care Physician [phone] Encounter [facility] Date(s): 06/27/21 - 07/27/21 [facility] Allergies, Adverse Reactions, [...] Virus Vaccine 11/21/89 Recor ded 1Result Comment: [facility]# [id number] PT. TOLERATED INJ. WITHOUT COMPLICATIONS....CO 2Result Comment: [facility]# [id number] PT. TOLERATED INJ. WITHOUT COMPLICATIONS...CO 3Result Comment: [...] Gm, 10 Refills, Maintenance, 06/07/20 14:34:00 EST, [email or web address], 50, INHALE 2 PUFFS BY MOUTH 4 TIMES DAILY NEEDED FORWHEEZING, 161, cm, 02/10/20 14:26:00 EST, Height, 1... Start Date: 06/07/20 Status: Ordered Albuterol (Eqv-ProAir HFA) 90 mcg/inh inhalation aerosol See Instructions, INHALE 2 PUFFS BY MOUTH 4 TIMES DAILY NEEDED FOR WHEEZING, # 9 Gm, 6 Refills, [email or web address], 25, INHALE 2 PUFFS BY MOUTH 4 TIMES DAILY NEEDED FOR WHEEZING, 162, cm, 05/03/21 9:55:00 EST, Height, 105.2, kg, 02/12/21 17:0... Start Date: 06/24/21 Status: Ordered albuterol 0.083% inhalation solution 3 mL = 2.5 mg, Inhalation, Every 6 hours, PRN for wheezing, # 100 each, 5 Refills, Maintenance, 06/24/21 12:33:00 EDT, Solution, [facility], replaces previous Rx for [...] 0 Refills, Maintenance, 02/11/21 12:37:00 EST, ECCapsule, [facility] 1967, 163, cm, 01/01/21 10:10:00 EDT, Height Start Date: 02/11/21 Status: Ordered Endometrin 100 mg vaginal insert = 100 mg, Vaginally, 3 times a day, to add on day of transfer, # 90 supp, 5 Refills, Maintenance, 04/28/21 9:20:00 EST, [facility], Partial fill [...] each, Refills 5, Route to Pharmacy Electronically, [id number], [facility] 1967, 163, cm, 01/01/21 10:10:00 EDT, Height Start Date: 01/28/21 Status: Ordered Macrobid macrocrystals-monohydrate 100 mg oral capsule 1 capsule = 100 mg, By Mouth, 2 times a day, for 7 days, # 14 capsule, 0 Refills, Acute 07/31/21 11:15:00 EDT, 07/24/21 11:15:00 EDT, Capsule, [facility], Partial fill upon patient [...] tablet, 11 Refills, Maintenance, 03/16/21 11:27:00 EST, [facility], 162, c... Start Date: [...] each, 11 Refills, Maintenance, 06/18/20 9:35:00 EDT, [facility], 161, cm, :18:00 EDT, Height, 106, kg, 09/11/18 13:37:00 EDT... Start Date: 06/18/20 Status: Ordered Multivitamins By Mouth, Daily, 0 Refills, Maintenance, 06/05/18 11:27:06 EST Start Date: 06/05/18 Status: Ordered progesterone 50 mg/mL intramuscular solution 100mg/ml 2 ml (sesame oil), Intramuscular, Daily, # 60 mL, 5 Refills, Maintenance, 06/27/21 16:29:00 EDT, [facility], Partial fill upon patient request if the prescription is for a schedule II opioid drug., 162, cm, 05/03/21 9:55:00 E... Start Date: 06/27/21 Status: Ordered Provera 10 mg oral tablet 10 mg, 1, tablet, By Mouth, Daily, # 10 tablet, Refills 0, Tot. Refills 0, Maintenance, 04/04/21 10:58:00 EST, Route to Pharmacy Electronically, [facility], Partial fill upon patient [...]
--- OUTSIDE RECORDS SUMMARY | 2024-02-22 11:41 | XMS_ITS | Continuity of Care Document ---
Author Organization [facility] Address [address] [place] [address]- Care Team Providers Care Plant Cytologist Name Role Phone Al DIEGO, Nanci Segovia Primary Care Physician [facility]counter [facility] Date(s): 12/20/20 - 01/19/21 [facility] [address] [place] [address]- Allergies, Adverse Reactions, Alerts Substance Reaction Severity [...] Virus Vaccine 11/21/89 Recor ded 1Result Comment: [facility]# [id number] PT. TOLERATED INJ. WITHOUT COMPLICATIONS....CO 2Result Comment: [facility]# [id number] PT. TOLERATED INJ. WITHOUT COMPLICATIONS...CO 3Result Comment: [...] EDT, Height Start Date: 12/31/20 Status: Ordered Advair Diskus 500 mcg-50 mcg inhalation powder 1, puffs, Inhalation, 2 times a day, # 1 each, Refills 12, Tot. Refills 12, Maintenance, 12/24/19 13:40:00 EDT, Route to Pharmacy Electronically, [id number], [facility], 161, cm, 06/12/19 8:56:00 EDT, Height, 106,... Start Date: 12/24/19 Status: Ordered Albuterol (Eqv-ProAir HFA) 90 mcg/inh inhalation aerosol 2 puffs, Inhalation, 4 times a day, PRN NEEDED FOR WHEEZING, # 18 Gm, 10 Refills, Maintenance, 06/07/20 14:34:00 EST, [facility], 50, INHALE 2 PUFFS BY MOUTH 4 TIMES DAILY NEEDED FORWHEEZING, 161, cm, 02/10/20 14:26:00 EST, Height, 1... Start Date: 06/07/20 Status: Ordered albuterol-ipratropium 3 mg-0.5 mg/3 ml inhalation solution 3 mL, Neb, 4 times a day, PRN shortness of breath, # 180 mL, 11 Refills, Maintenance, 06/18/20 9:36:00 EDT, Solution, [facility], 3 mL Neb 4 times a day,PRN:shortness of breath, 161, cm, 06/18/20 9:18:00 EDT, Height, 106, kg, 09/11/18 13:37... Start Date: 06/18/20 Status: Ordered Apri 0.15 mg-0.03 mg oral tablet 1 tablet, By Mouth, Daily, start first tablet today, # 1 pack/packet, 3 Refills, Maintenance, 12/09/20 13:48:00 EDT, [facility], Partial fill upon patient request [...] 3 Refills, Maintenance, 12/24/19 13:41:00 EDT, ECCapsule, [facility], 161, cm, 06/12/19 8:56:00 EDT, Height, 106, kg, 09/11/18 13:37:00 EDT, Dry Weight Start Date: 12/24/19 Status: Ordered doxycycline hyclate 100 mg oral tablet 1 tablet = 100 mg, By Mouth, 2 times a day, # 28 tablet, 5 Refills, Maintenance, 12/31/20 8:23:00 EDT, [facility], Partial fill upon patient request [...] 04/10/16 10:01:51 Start Date: 04/10/16 Status: Ordered ganirelix 250 mcg/0.5 ml subcutaneous injection 0.5 mL = 250 mcg, Subcutaneous Injection, Daily, # 5 each, 5 Refills, Acute 02/20/21 8:26:00 EST, 12/31/20 8:23:00 EDT, Solution, [facility], Partial fill upon patient request if theprescription is for a schedule II opioid drug., 161... Start Date: 12/31/20 Stop Date: 02/20/21 Status: Ordered Gonal-F 1050 units subcutaneous injection = 150 International_Units, Subcutaneous Injection, Daily, # 2 kit, 5 Refills, Maintenance, 218:23:00 EDT, [facility], Partial fill upon patient request [...] 02/20/21 8:26:00 EST, 12/31/20 8:22:00 EDT, Powder, [facility], Partial fill upon patient requestif [...] tablet, 11 Refills, Maintenance, 02/10/20 14:25:00 EST, [facility], 161, c... Start [...] each, 11 Refills, Maintenance, 06/18/20 9:35:00 EDT, [facility], 161, cm, 219:18:00 EDT, Height, 106, kg, 09/11/18 13:37:00 EDT... Start Date: 06/18/20 Status: Ordered oxyCODONE 5 mg oral tablet 5 mg, 1, tablet, By Mouth, Every 6 hours, PRN, # 8 tablet, Refills 0, Tot. Refills 0, Maintenance, Pain , Mild, 01/18/21 9:22:00 EDT, Route to Pharmacy Electronically, [facility], Partial fill upon patient request if the prescription is for... Start Date: 01/18/21 Status: Ordered Pregnyl 02926 u injectable powder for injection = 1,000 units, Intramuscular, Once, For use as trigger shot. Use 3 mL of diluent to reconstitute powder. Draw and administer 0.3 mL of reconsituted pregnyl for total dose of 1000 units., # 1 kit, 5 Refills, Soft Stop, 12/31/20 8:24:00 EDT, [facility]... Start Date: 12/31/20 Status: Ordered Multivitamins By Mouth, Daily, 0 Refills, Maintenance, 06/05/18 11:27:06 EST Start Date: 06/05/18 Status: Ordered Prometrium 200 mg oral capsule See Instructions, vaginally 3 times a day, # 90 tablet, 5 Refills, Maintenance, 12/31/20 8:22:00 EDT, [facility], Partial fill upon patient request [...] 01/18/21 9:22:00 EDT, Route to Pharmacy Electronically, [facility], Partial fill upon patient request [...] patch, 5 Refills, Maintenance, 12/31/20 8:23:00 EDT, [facility], Partial fill upon patient request if the prescription is for a schedule II opio... Start Date: 12/31/20 Status: Ordered yes yes, See Instructions, # 2 each, Refills 5, Tot. Refills 5, Maintenance, [place] Capped Insulin Syringe for lupron administration, 12/31/20 [...]
--- OUTSIDE RECORDS SUMMARY | 2024-02-22 11:41 | XMS_ITS | Continuity of Care Document ---
Author Organization [facility] Address [address] [place] [address]- Care Team Providers Care Regional Engineer Name Role Phone Al DIEGO, Nanci Segovia Primary Care Physician [facility] Date(s): 04/04/21 - 05/04/21 [facility] [address] [place] [address]- Allergies, Adverse Reactions, Alerts Substance Reaction Severity [...] Recor ded 1Result Comment: [facility]# [id number] PT. TOLERATED INJ. WITHOUT COMPLICATIONS....CO 2Result Comment: [facility]# [id number] PT. TOLERATED INJ. WITHOUT COMPLICATIONS...CO 3Result Comment: [...] EST, Height, 105.2, kg, 02/12/21 17:08:00 EST, . Start Date: 04/28/21 Status: Ordered Albuterol (Eqv-ProAir HFA) 90 mcg/inh inhalation aerosol 2 puffs, Inhalation, 4 times a day, PRN NEEDED FOR WHEEZING, # 18 Gm, 10 Refills, Maintenance, 06/07/20 14:34:00 EST, [facility], 50, INHALE 2 PUFFS BY MOUTH 4 TIMES DAILY NEEDED FORWHEEZING, 161, cm, 02/10/20 14:26:00 EST, Height, 1... Start Date: 06/07/20 Status: Ordered albuterol 0.083% inhalation solution 3 mL = 2.5 mg, Inhalation, Every 6 hours, PRN for wheezing, # 25 each, 0 Refills, Maintenance, 04/04/21 12:33:00 EST, Solution, [facility] 1966, replaces previous Rx for albuterol-ipatropium solution, 162, cm, 03/10/21 14:17:00 EST, Height, 105.... Start Date: 04/04/21 Status: Ordered albuterol-ipratropium 3 mg-0.5 mg/3 ml inhalation solution 3 mL, Neb, 4 times a day, PRN shortness of breath, # 180 mL, 2 Refills, Maintenance, 04/04/21 8:55:00 EST, Solution, [facility], 3 mL Neb 4 times a day,PRN:shortness of breath, 162, cm, 03/10/21 14:17:00 EST, Height, 105.2, kg, 02/12/21 17:... Start Date: 04/04/21 Status: Ordered Apri 0.15 mg-0.03 mg oral tablet 1 tablet, By Mouth, Daily, start first tablet today, # 1 pack/packet, 3 Refills, Maintenance, 12/09/20 13:48:00 EDT, [facility], Partial fill upon patient [...] 0 Refills, Maintenance, 02/11/21 12:37:00 EST, ECCapsule, [facility], 163, cm, 01/01/21 10:10:00 EDT, Height Start Date: 02/11/21 Status: Ordered Endometrin 100 mg vaginal insert = 100 mg, Vaginally, 3 times a day, to add on day of transfer, # 90 supp, 5 Refills, Maintenance, 04/28/21 9:20:00 EST, [facility], Partial fill [...] each, Refills 5, Route to Pharmacy Electronically, [id number], [facility], 163, cm, 01/01/21 10:10:00 EDT, Height Start Date: 01/28/21 Status: Ordered metFORMIN 500 mg oral tablet, extended release See Instructions, take 1 tablet po w/dinner x1 wk, then increase to 2 tablets x 1-2 wks, then increase to 3 tablets 1-2 wks,then 4 tabs with dinner every day., # 120 tablet, 11 Refills, Maintenance, 03/16/21 11:27:00 EST, [facility], 162, c... Start Date: [...] 11 Refills, Maintenance, 06/18/20 9:35:00 EDT, [facility], 161, cm, 219:18:00 EDT, Height, 106, kg, 09/11/18 13:37:00 EDT... Start Date: 06/18/20 Status: Ordered oxyCODONE 5 mg oral tablet 5 mg, 1, tablet, By Mouth, Every 6 hours, PRN, # 8 tablet, Refills 0, Tot. Refills 0, Maintenance, Pain , Mild, 01/18/21 9:22:00 EDT, Route to Pharmacy Electronically, [facility], Partial fill upon patient request if the prescription is for... Start Date: 01/18/21 Status: Ordered Multivitamins By Mouth, Daily, 0 Refills, Maintenance, 06/05/18 11:27:06 EST Start Date: 06/05/18 Status: Ordered progesterone 50 mg/mL intramuscular solution 50mg/ml 1 ml (sesame oil), Intramuscular, Daily, # 30 mL, 5 Refills, Maintenance, 04/28/21 9:19:00 EST, [facility], Partial fill upon patient request if the prescription is for a schedule II opioid drug., 162, cm, 03/10/21 14:17:00 ES... Start Date: 04/28/21 Status: Ordered Provera 10 mg oral tablet 10 mg, 1, tablet, By Mouth, Daily, # 10 tablet, Refills 0, Tot. Refills 0, Maintenance, 04/04/21 10:58:00 EST, Route to Pharmacy Electronically, [facility] 1966, Partial fill upon patient [...] 01/18/21 9:22:00 EDT, Route to Pharmacy Electronically, [facility] 1966, Partial fill upon patient [...] patch, 5 Refills, Maintenance, 04/28/21 9:19:00 EST, [facility], Partial fill [...]
--- OUTSIDE RECORDS SUMMARY | 2024-02-22 11:41 | XMS_ITS | Continuity of Care Document ---
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 TOLERATED INJ. WITHOUT COMPLICATIONS....CO 2Result Comment: [facility]# [id number] PT. TOLERATED INJ. WITHOUT COMPLICATIONS...CO 3Result Comment: [04/06/2016] pt. tolerated inj. without complications...CO 4Result Comment: [04/14/2015] Measles mumps rubella titer Medications Advair Diskus 500 mcg-50 mcg inhalation powder 1, puffs, Inhalation, 2 times a day, # 1 each, Refills 12, Tot. Refills 12, Maintenance, 12/24/19 13:40:00 EDT, Route to Pharmacy Electronically, [id number], [facility], 161, cm, 06/12/19 8:56:00 EDT, Height, 106,... Start Date: 12/24/19 Status: Ordered albuterol 0.083% inhalation solution 3 mL = 2.5 mg, Inhalation, Every 6 hours, PRN for wheezing, # 60 each, 11 Refills, Maintenance, 12/24/19 13:40:00 EDT, Solution, [facility], 161, cm, 06/12/19 [...] 3 Refills, Maintenance, 12/24/19 13:41:00 EDT, ECCapsule, [facility], 161, cm, 06/12/19 8:56:00 EDT, Height, 106, kg, 09/11/18 13:37:00 EDT, Dry Weight Start Date: 12/24/19 Status: Ordered diclofenac sodium 75 mg oral delayed release tablet 1 tablet = 75 mg, By Mouth, 2 times a day, PRN for pain, TAKE WITH FOOD, # 28 tablet, 1 Refills, Maintenance, 12/16/19 9:22:00 EDT, Tablet, [facility], 161, cm, 06/12/19 [...] each, 5 Refills, Maintenance, 12/24/19 13:58:00 EDT, [facility], 161, cm, :56:00 EDT, Height, [...] 15:55:00 EST, Aerosol, Route to Pharmacy Electronically, [id number], [facility], 161, cm, 01/20/19 11:38:00 EDT,... Start Date: 05/19/19 Status: Ordered ProAir HFA 90 mcg/inh inhalation aerosol with adapter 180 mcg, 2, puffs, Inhalation, 4 times a day, # 1 each, Refills 4, Tot. Refills 4, Maintenance, 12/24/19 13:40:00 EDT, Inhaler, Route to Pharmacy Electronically, [id number],[facility], 161, cm, 06/12/19 8:56:00 ED... [...]
--- OUTSIDE RECORDS SUMMARY | 2024-02-22 11:41 | XMS_ITS | Continuity of Care Document ---
Author Organization [facility] Address Unknown Care Team Providers Care Dry Box Operator Name Role Phone Al DIEGO, Nanci Segovia Primary Care Physician [facility] Date(s): 01/07/21 - 02/06/21 [facility] Allergies, Adverse Reactions, Alerts [...] Vaccine 11/21/89 Recor ded 1Result Comment: [facility]# [id number] PT. TOLERATED INJ. WITHOUT COMPLICATIONS....CO 2Result Comment: [facility]# [id number] PT. TOLERATED INJ. WITHOUT COMPLICATIONS...CO 3Result Comment: [...] Gm, 10 Refills, Maintenance, 06/07/20 14:34:00 EST, [facility], 50, INHALE 2 PUFFS BY MOUTH 4 TIMES DAILY NEEDED FORWHEEZING, 161, cm, 02/10/20 14:26:00 EST, Height, 1... Start Date: 06/07/20 Status: Ordered albuterol-ipratropium 3 mg-0.5 mg/3 ml inhalation solution 3 mL, Neb, 4 times a day, PRN shortness of breath, # 180 mL, 11 Refills, Maintenance, 06/18/20 9:36:00 EDT, Solution, [facility], 3 mL Neb 4 times a day,PRN:shortness of breath, 161, cm, 06/18/20 9:18:00 EDT, Height, 106, kg, 09/11/18 13:37... Start Date: 06/18/20 Status: Ordered Apri 0.15 mg-0.03 mg oral tablet 1 tablet, By Mouth, Daily, start first tablet today, # 1 pack/packet, 3 Refills, Maintenance, 12/09/20 13:48:00 EDT, [facility], Partial fill upon [...] 3 Refills, Maintenance, 12/24/19 13:41:00 EDT, ECCapsule, [facility], 161, cm, 06/12/19 8:56:00 EDT, Height, 106, kg, 09/11/18 13:37:00 EDT, Dry Weight Start Date: 12/24/19 Status: Ordered doxycycline hyclate 100 mg oral tablet 1 tablet = 100 mg, By Mouth, 2 times a day, # 28 tablet, 5 Refills, Maintenance, 12/31/20 8:23:00 EDT, [facility], Partial fill upon patient [...] each, Refills 5, Route to Pharmacy Electronically, [id number], [facility], 163, cm, 01/01/21 10:10:00 EDT, Height Start Date: 01/28/21 Status: Ordered ganirelix 250 mcg/0.5 ml subcutaneous injection 0.5 mL = 250 mcg, Subcutaneous Injection, Daily, # 5 each, 5 Refills, Acute 02/20/21 8:26:00 EST, 12/31/20 8:23:00 EDT, Solution, [facility], Partial fill upon patient request if theprescription is for a schedule II opioid drug., 161... Start Date: 12/31/20 Stop Date: 02/20/21 Status: Ordered Gonal-F 1050 units subcutaneous injection = 150 International_Units, Subcutaneous Injection, Daily, # 2 kit, 5 Refills, Maintenance, :23:00 EDT, [facility], Partial fill upon patient [...] 02/20/21 8:26:00 EST, 12/31/20 8:22:00 EDT, Powder, [facility], Partial fill upon patient requestif [...] tablet, 11 Refills, Maintenance, 02/10/20 14:25:00 EST, [facility], 161, c... Start [...] each, 11 Refills, Maintenance, 06/18/20 9:35:00 EDT, [facility], 161, cm, 219:18:00 EDT, Height, 106, kg, 09/11/18 13:37:00 EDT... Start Date: 06/18/20 Status: Ordered oxyCODONE 5 mg oral tablet 5 mg, 1, tablet, By Mouth, Every 6 hours, PRN, # 8 tablet, Refills 0, Tot. Refills 0, Maintenance, Pain , Mild, 01/18/21 9:22:00 EDT, Route to Pharmacy Electronically, [facility], Partial fill upon patient request if the prescription is for... Start Date: 01/18/21 Status: Ordered Pregnyl 27723 u injectable powder for injection = 1,000 [...] 30 mL, 5 Refills, Maintenance, 02/03/21 11:55:00EDT, [facility], Partial fill upon patient request if the prescription is for a schedule II opioid drug., 163, cm, 01/01/21 10:10:00 E... Start Date: 02/03/21 Status: Ordered Prometrium 200 mg oral capsule See Instructions, vaginally 3 times a day, # 90 tablet, 5 Refills, Maintenance, 12/31/20 8:22:00 EDT, [facility], Partial fill upon patient [...] 9:22:00 EDT, Route to Pharmacy Electronically, [facility] 1966, Partial fill upon patient request if [...] patch, 5 Refills, Maintenance, 12/31/20 8:23:00 EDT, [facility], Partial fill upon patient request if the prescription is for a schedule II opio... Start Date: 12/31/20 Status: Ordered yes yes, See Instructions, # 2 each, Refills 5, Tot. Refills 5, Maintenance, [place] Capped Insulin Syringe for lupron administration, 12/31/20 [...]
--- OUTSIDE RECORDS SUMMARY | 2024-02-22 11:41 | XMS_ITS | Continuity of Care Document ---
Author Organization [facility] ter Address [address] [place] [address]- Care Team Providers Care Manager Studio Name Role Phone Nanci Melendez MD Primary Care Physician [phone] Encounter [facility] Date(s): 08/20/21 - 08/20/[address] [address] Discharge Disposition: A-D/C Home Attending Physician: Nancy Hagen MD Admitting Physician: Nancy Hagen MD Referring Physician: Nancy Hagen MD Allergies, Adverse Reactions, Alerts Substance Reaction [...] Virus Vaccine 11/21/89 Recor ded 1Result Comment: [facility]# [id number] PT. TOLERATED INJ. WITHOUT COMPLICATIONS....CO 2Result Comment: [facility]# [id number] PT. TOLERATED INJ. WITHOUT COMPLICATIONS...CO 3Result Comment: [04/06/2016] pt. tolerated inj. without complications...CO 4Result Comment: [04/14/2015] Measles mumps rubella titer Medications Albuterol (Eqv-ProAir HFA) 90 mcg/inh inhalation aerosol See Instructions, INHALE 2 PUFFS BY MOUTH 4 TIMES DAILY NEEDED FOR WHEEZING, # 9 Gm, 6 Refills, 08/17/21 9:51:00 EDT, [facility], [facility], INHALE 2 PUFFS BY MOUTH 4 TIMES DAILY NEEDED FORWHEEZING, 162, cm, 08/03/21 16:59:00 EDT, Height, 1... Start Date: 08/17/21 Status: Ordered albuterol 0.083% inhalation solution 3 mL = 2.5 mg, Inhalation, Every 6 hours, PRN for wheezing, # 100 each, 5 Refills, Maintenance, 08/17/21 9:51:00 EDT, Solution, [facility], replaces previous Rx for albuterol-ipatropium [...] tablet, 11 Refills, Maintenance, 08/18/21 16:40:00EDT, Tablet, [facility], Partial fill upon patient request [...] 08/17/21 9:51:00 EDT, Route to Pharmacy Electronically, [id number], [facility], 162, cm, 08/03/21 [...] tablet, 11 Refills, Maintenance, 03/16/21 11:27:00 EST, [facility], 162, c... Start [...] each, 11 Refills, Maintenance, 06/18/20 9:35:00 EDT, [facility], 161, cm, :18:00 [...] Most recent to oldest [Reference Range]: 1 Weight 107.4 kg (08/20/21 8:43 AM) Oxygen Saturation [94-100 %] 100 % (08/20/21 8:43 AM) Pulse Rate [55-90 bpm] 88 bpm (08/20/21 8:43 AM) Blood Pressure [90-138/55-84 mm Hg] 111/ 74mm Hg (08/20/21 8:43 AM) Respiratory Rate [16-30 br/min] 18 br/mi n (08/20/21 8:43 AM) Temperature [96.8-100.4 DegF] 98.9 DegF (08/20/21 8:43 AM) Mode of Delivery (Oxygen) Room air (08/20/21 8:43 AM) Blood pressure sites Arm, right 1 (08/20/21 8:43 AM) Temperature Route Axillary (08/20/21 8:43 AM) Dry Weight 107.4 kg (08/20/21 8:43 AM) 1Result Comment: right upper arm measured 34.5cm Social History Social History Type Response Smoking Status Never smoker; Tobacc o user in household: No entered on: 07/02/15 Sex
--- OUTSIDE RECORDS SUMMARY | 2024-02-22 11:41 | XMS_ITS | Continuity of Care Document ---
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 TOLERATED INJ. WITHOUT COMPLICATIONS....CO 2Result Comment: [facility]# [id number] PT. TOLERATED INJ. WITHOUT COMPLICATIONS...CO 3Result Comment: [04/06/2016] pt. tolerated inj. without complications...CO 4Result Comment: [04/14/2015] Measles mumps rubella titer Medications Advair Diskus 500 mcg-50 mcg inhalation powder 1, puffs, Inhalation, 2 times a day, # 1 each, Refills 12, Tot. Refills 12, Maintenance, 12/24/19 13:40:00 EDT, Route to Pharmacy Electronically, [id number], [facility], 161, cm, 06/12/19 8:56:00 EDT, Height, 106,... Start Date: 12/24/19 Status: Ordered albuterol 0.083% inhalation solution 3 mL = 2.5 mg, Inhalation, Every 6 hours, PRN for wheezing, # 60 each, 11 Refills, Maintenance, 12/24/19 13:40:00 EDT, Solution, [facility], 161, cm, 06/12/19 8:56:00 [...] 3 Refills, Maintenance, 12/24/19 13:41:00 EDT, ECCapsule, [facility], 161, cm, 06/12/19 8:56:00 EDT, Height, 106, kg, 09/11/18 13:37:00 EDT, Dry Weight Start Date: 12/24/19 Status: Ordered diclofenac sodium 75 mg oral delayed release tablet 1 tablet = 75 mg, By Mouth, 2 times a day, PRN for pain, TAKE WITH FOOD, # 28 tablet, 1 Refills, Maintenance, 12/16/19 9:22:00 EDT, Tablet, [facility], 161, cm, 06/12/19 8:56:00 [...] tablet, 3 Refills, Maintenance, 02/09/20 17:27:00 EST, [facility], 161, cm, 06/12/19 8:56:00 [...] tablet, 11 Refills, Maintenance, 02/10/20 14:25:00 EST, [facility], 161, c... Start Date: [...] each, 5 Refills, Maintenance, 12/24/19 13:58:00 EDT, [facility], 161, cm, 208:56:00 EDT, [...] 13:40:00 EDT, Inhaler, Route to Pharmacy Electronically, [id number],[facility], 161, cm, 06/12/19 8:56:00 ED... Start Date: 12/24/19 Status: Ordered ProAir HFA 90 mcg/inh inhalation aerosol with adapter 2, puffs, Inhalation, 4 times a day, PRN, # 2 each, Refills 5, Tot. Refills 5, Maintenance, 05/19/19 15:55:00 EST, Aerosol, Route to Pharmacy Electronically, [id number], [facility], 161, cm, 01/20/19 11:38:00 [...]
--- OUTSIDE RECORDS SUMMARY | 2024-02-22 11:41 | XMS_ITS | Continuity of Care Document ---
Author Organization [facility] Address Unknown Care Team Providers Care Leaf Tier Name Role Phone Nanci Melendez MD Primary Care Physician Encounter [facility] Date(s): 06/04/21 - 06/11/21 [facility] Attending Physician: Cheryl Beauchamp MD Referring Physician: [...] Vaccine 11/21/89 Recor ded 1Result Comment: [facility]# [id number] PT. TOLERATED INJ. WITHOUT COMPLICATIONS....CO 2Result Comment: [facility]# [id number] PT. TOLERATED INJ. WITHOUT COMPLICATIONS...CO 3Result Comment: [...] Gm, 10 Refills, Maintenance, 06/07/20 14:34:00 EST, [facility], 50, INHALE 2 PUFFS BY MOUTH 4 TIMES DAILY NEEDED FORWHEEZING, 161, cm, 02/10/20 14:26:00 EST, Height, 1... Start Date: 06/07/20 Status: Ordered albuterol 0.083% inhalation solution 3 mL = 2.5 mg, Inhalation, Every 6 hours, PRN for wheezing, # 25 each, 0 Refills, Maintenance, 04/04/21 12:33:00 EST, Solution, [facility], replaces previous Rx for albuterol-ipatropium solution, 162, cm, 03/10/21 14:17:00 EST, Height, 105.... Start Date: 04/04/21 Status: Ordered albuterol-ipratropium 3 mg-0.5 mg/3 ml inhalation solution 3 mL, Neb, 4 times a day, PRN shortness of breath, # 180 mL, 2 Refills, Maintenance, 04/04/21 8:55:00 EST, Solution, [facility], 3 [...] supp, 5 Refills, Maintenance, 04/28/21 9:20:00 EST, [facility], Partial fill upon patient request [...] each, Refills 5, Route to Pharmacy Electronically, [id number], [facility], 163, cm, 01/01/21 10:10:00 EDT, Height Start Date: 01/28/21 Status: Ordered metFORMIN 500 mg oral tablet, extended release See Instructions, take 1 tablet po w/dinner x1 wk, then increase to 2 tablets x 1-2 wks, then increase to 3 tablets 1-2 wks,then 4 tabs with dinner every day., # 120 tablet, 11 Refills, Maintenance, 03/16/21 11:27:00 EST, [facility], 162, c... Start [...] mL, 5 Refills, Maintenance, 04/28/21 9:19:00 EST, [facility], Partial fill upon patient request if the prescription is for a schedule II opioid drug., 162, cm, 03/10/21 14:17:00 ES... Start Date: 04/28/21 Status: Ordered Provera 10 mg oral tablet 10 mg, 1, tablet, By Mouth, Daily, # 10 tablet, Refills 0, Tot. Refills 0, Maintenance, 04/04/21 10:58:00 EST, Route to Pharmacy Electronically, [facility], Partial fill upon patient [...] 01/18/21 9:22:00 EDT, [facility], Partial fill upon patient request if the... Start Date: 01/18/21 Status: Ordered Valium 5 mg oral tablet 5 mg, 1, tablet, By Mouth, Once, One tablet one hour prior to procedure, may repeat x 1 as needed for anxiety, # 2 tablet, Refills 0, Tot. Refills 0, Soft Stop, 06/04/21 13:10:00 EST, [facility], Partial fi... Start Date: 06/04/21 [...] patch, 5 Refills, Maintenance, 04/28/21 9:19:00 EST, [facility], Partial fill upon patient request [...]
--- OUTSIDE RECORDS SUMMARY | 2024-02-22 11:41 | XMS_ITS | Continuity of Care Document ---
Author Organization [facility] Address [address] [place] [address]- Care Team Providers Care Director Of Player Personnel Name Role Phone Al DIEGO, Nanci Segovia Primary Care Physician [facility]counter [facility] Date(s): 10/29/23 - 11/28/23 [facility] [address] [place] [address]- Allergies, Adverse Reactions, Alerts Substance Reaction Severity [...] Virus Vaccine 11/21/89 Recor ded 1Result Comment: [facility]# [id number] PT. TOLERATED INJ. WITHOUT COMPLICATIONS....CO 2Result Comment: [facility]# [id number] PT. TOLERATED INJ. WITHOUT COMPLICATIONS...CO 3Result Comment: [04/06/2016] pt. tolerated inj. without complications...CO 4Result Comment: [04/14/2015] Measles mumps rubella titer Medications albuterol 0.083% inhalation solution 3 mL = 2.5 mg, Inhalation, Every 6 hours, PRN for wheezing, # 100 each, 5 Refills, Maintenance, 06/19/22 15:15:00 EDT, Solution, [facility] #[id number], replaces previous Rx for albuterol-ipatropium solution, 163, cm, 05/01/22 14:15:00 EST, Height, 128.2,... Start Date: 06/19/22 Status: Ordered Dexilant 60 mg oral delayed release capsule See Instructions, Take 1 capsule by mouth once daily, # 90 capsule, 0 Refills, 03/14/22 14:26:00 EST, [facility], 163, cm, 02/27/22 [...] tablet, 11 Refills, Maintenance, 08/18/21 16:40:00EDT, Tablet, [facility], Partial fill upon [...] 03/12/23 11:30:00 EST, Route to Pharmacy Electronically, [id number], [facility]/pharmacy #[id number], 163, cm, 03/02/23 13:11:00 EST, Height, 128.2, kg, 02/05/22 1... 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, 08/30/18 17:26:09 EDT, Compound Start Date: 08/30/18 Status: Ordered norethindrone 0.35 mg oral tablet 1 tablet, By Mouth, Daily, # 84 tablet, 5 Refills, Maintenance, 08/16/22 9:41:00 EDT, [id number], 163, cm, 05/01/22 14:15:00 EST, Height, 128.2, kg, 02/05/22 12:22:00 EST, Dry Weight Start Date: 08/16/22 Status: Ordered ondansetron 4 mg oral tablet 1 tablet, By Mouth, Every 8 hours, PRN NEEDED FOR NAUSEA AND VOMITING FOR, # 15 tablet, 3 Refills, Maintenance, 09/14/23 16:11:00 EDT, [id number], 160, cm, 07/21/23 8:30:00 EDT, Height, 114, kg, 07/21/23 8:30:00 EDT, Dry Weight Start Date: 09/14/23 Stop Date: 09/19/23 Status: Ordered Multivitamins By Mouth, Daily, 0 Refills, Maintenance, 06/05/18 11:27:06 EST Start Date: 06/05/18 Status: Ordered Ventolin HFA 108 mcg/inh inhalation aerosol with adapter 2 puffs, Inhalation, Every 4 hours, PRN for wheezing, # 8 Gm, 5 Refills, Maintenance, 03/12/23 11:35:00 EST, Aerosol, [facility]/pharmacy #[id number], Partial fill upon [...] Care team information Care Team Personnel Name: Macario DIEGO, Adela Marroquin Position: [facility] DISPOSAL PLANT OPERATOR MD Member Role: [employer] DISPOSAL PLANT OPERATOR Physician Address: Address: [address] [place] [address], [address] [facility] [place], [place] [address] Name: Nanci Melendez MD Position: [facility] Physician - Primary Care Member Role: PCP Address: Address: [address] [place] [address]- Name: Tammy Schuler Position: [facility] Outreach Member Role: Lifetime Consulting Physician Care Team Related Persons Name: SEAN RITCHIE Address: [id number] Address: [address] [place] [address] [place] Name: DERRELL RITCHIE Address: home [address] [facility] [place] [id number] Name: DERRELL RITCHIE Address: home [address] [place] [address] Name: DERRELL RITCHIE Address: home [address] [place] [address] Name: SHEBA CANO Address: [address] [place] [address] Name: DAYANNA CANO Address: home [address] [place] [address]
--- OUTSIDE RECORDS SUMMARY | 2024-02-22 11:41 | XMS_ITS | Continuity of Care Document ---
Author Organization [facility] ter Address [address] [place] [address]- Care Team Providers Care Supervisor Litharge Name Role Phone Nanci Melendez MD Primary Care Physician [facility] Date[facility]): 06/[facility]/23 - 06/21/[address] [address] Discharge Disposition: A-D/C Home Attending Physician: Cheryl Beauchamp MD Admitting Physician: Cheryl Beauchamp MD Referring Physician: Cheryl Beauchamp MD Allergies, [...] Vaccine 11/21/89 Recor ded 1Result Comment: [facility]# [id number] PT. TOLERATED INJ. WITHOUT COMPLICATIONS....CO 2Result Comment: [facility]# [id number] PT. TOLERATED INJ. WITHOUT COMPLICATIONS...CO 3Result Comment: [04/06/2016] pt. tolerated inj. without complications...CO 4Result Comment: [04/14/2015] Measles mumps rubella titer Medications albuterol 0.083% inhalation solution 3 mL = 2.5 mg, Inhalation, Every 6 hours, PRN for wheezing, # 100 each, 5 Refills, Maintenance, 06/19/22 15:15:00 EDT, Solution, [facility]/pharmacy #[id number], replaces previous Rx for albuterol-ipatropium solution, 163, cm, 05/01/22 14:15:00 EST, Height, 128.2,... Start Date: 06/19/22 Status: Ordered Dexilant 60 mg oral delayed release capsule See Instructions, Take 1 capsule by mouth once daily, # 90 capsule, 0 Refills, 03/14/22 14:26:00 EST, [facility], 163, cm, 02/27/22 9:06:00 [...] tablet, 11 Refills, Maintenance, 08/18/21 16:40:00EDT, Tablet, [facility], Partial fill [...] 03/12/23 11:30:00 EST, Route to Pharmacy Electronically, [id number], [facility]/pharmacy #[id number], 163, cm, 03/02/23 13:11:00 EST, Height, 128.2, kg, 02/05/22 1... 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, 08/30/18 17:26:09 EDT, Compound Start Date: 08/30/18 Status: Ordered norethindrone 0.35 mg oral tablet 1 tablet, By Mouth, Daily, # 84 tablet, 5 Refills, Maintenance, 08/16/22 9:41:00 EDT, [facility] STORE [id number], 163, cm, 05/01/22 14:15:00 EST, Height, 128.2, kg, 02/05/22 12:22:00 EST, Dry Weight Start Date: 08/16/22 Status: Ordered ondansetron 4 mg oral tablet See Instructions, TAKE 1 TABLET BY MOUTH EVERY 8 HOURS NEEDED FOR NAUSEA AND VOMITING FOR 5 DAYS, # 15 each, 11 Refills, Maintenance, 06/19/22 15:15:00 EDT, [facility]/pharmacy #[id number], 163, cm, 05/01/22 14:15:00 EST, Height, 128.2, kg, 02/05/22 12:22:00 ES... Start Date: 06/19/22 Status: Ordered Oxycodone 5mg Oral Tablet (PACU ONLY) 5 mg, Tablet, By Mouth, Once, in PACU ONLY, PRN for Pain , Moderate, Routine, 06/21/23 13:43:00 EDT Start Date: 06/21/23 Stop Date: 06/21/23 Status: Completed Multivitamins By Mouth, Daily, 0 Refills, Maintenance, 06/05/18 11:27:06 EST Start Date: 06/05/18 Status: Ordered Ventolin HFA 108 mcg/inh inhalation aerosol with adapter 2 puffs, Inhalation, Every 4 hours, PRN for wheezing, # 8 Gm, 5 Refills, Maintenance, 03/12/23 11:35:00 EST, Aerosol, [id number], Partial fill upon patient [...] Most recent to oldest [Reference Range]: 1 2 3 Height 160 cm (06/21/23 12:38 PM) 160 cm (06/18/23 5:43 PM) Oxygen Saturation [94-100 %] 94 % (06/21/23 2:45 PM) 95 % (06/21/23 2:30 PM) 97 % (06/21/23 2:15 PM) Pulse Rate [55-90 bpm] 74 bpm (06/21/23 12:38 PM) Blood Pressure [90-138/55-84 mm Hg] 107/73mm Hg (06/21/23 2:45 PM) 101/69mm Hg (06/21/23 2:30 PM) 108/65mm Hg (06/21/23 2:15 PM) Respiratory Rate [16-30 br/min] 14 br/min *L* (06/21/23 2:45 PM) 16 br/min (06/21/23 2:35 PM) 21 br/min (06/21/23 2:15 PM) Temperature [96.8-100.4 DegF] 97.2 DegF (06/21/23 2:00 PM) 97.8 DegF (06/21/23 12:38 PM) Liters per Minute 6 L/min (06/21/23 2:00 PM) Mode of Delivery (Oxygen) Room air (06/21/23 2:45 PM) Room air (06/21/23 2:30 PM) Simple face mask (06/21/23 2:00 PM) Blood pressure sites Arm, right (06/21/23 2:00 PM) Temperature Route Temporal (06/21/23 2:00 PM) Tympanic (06/21/23 12:38 PM) Dry Weight 116.8 kg (06/21/23 12:38 PM) 114.1 kg (06/18/23 5:43 PM) Dry Weight Obtained Via Standing scale (06/21/23 12:38 PM) Patient/family stated (06/18/23 5:43 PM) Social History Social History Type Response Smoking Status Never smoker; Tobacc o user in household: No entered on: 07/02/15 Sex Note * Anni Weeks RN: PERFORM Event Display: Discharge/Transfer Note Hospital Authored Date: [id number] Nursing Discharge Note Entered On: 06/21/2023 15:09 EDT Performed On: 06/21/2023 15:08 EDT by Anni Weeks RN Nursing Discharge Note 2 Discharge Time : 06/21/2023 15:06 EDT Discharge Level of Care at Discharge : Home/[facility] Patient Left Unit Via : Wheelchair Patient Accompanied Off Unit with : Responsible adult DC Instructions Provided & Signed by Pt : Yes Patient Understands D/C Instructions : Yes Patient Instructions Discharge Signed : Yes Did Pt have Specialty Bed or Wound Vac : No Anni Weeks RN - 06/21/2023 15:08 EDT * Anni Weeks RN: PERFORM Event Display: Patient Education/Instruction Authored Date: [id number] Surgery Adult Discharge Instructions [address] [address] Name: JOANN ACUNA : 1990?? Visit: 06/21/2023 11:40?? Current Date: 06/21/2023 14:33 ?? Account: [id number]?? Surgery Discharge Instructions We would like to thank you for allowing us to assist you with your healthcare needs. The following includes patient education materials and information regarding your injury/illness. Our entire staffstrives to provide an excellent experience for our patients and their families. PLEASE ENSURE YOU FOLLOW-UP PER THE INSTRUCTIONS BELOW! ?? YOUR OPINION IS IMPORTANT TO US! Please complete the survey you may receive by mail or email. Your feedback will be used to make improvements to the healthcare experiences of our patients and their families. Surveys are administered by [employer] ?? If further treatment with your primary care physician or another doctor is recommended, it is important for you to keep the appointment. Call your primary care physician or return to the Emergency Department immediately if your condition worsens, fails to improve, or new symptoms develop. If you need to find a doctor, you can call [facility] [employer] Link for a referral at [phone] or toll free at [phone] ([phone]) or log in to [email or web address].. ?? [facility], in keeping with [facility] guidance, no longer requires face masks for staff, patientsor visitors in most situations. Similiar to time spent indoors at other locations, there is the chance that you were exposed to repiratory viruses during your time with us (such as flu or COVID-19). If you develop symptoms concerning for a viral respiratory infection, please seek testing (and treatment if indicated) from your medical provider or home test kit. ?? You can view and manage your care through the patient portal or by using a health care ismael of your choosing. [employer] is a website that allows you to securely view your medical information including your hospital discharge summary, office visit summaries, medications and follow-up visits. You can also request appointments, renew medications, and request access to your medical information using a health care ismael of your choosing, or just ask a question. You are entitled to know the individuals who participated in your treatment. This information is available within your medical record and will be provided upon your request. You can enroll at [email or web address] or register d uring your next office visit. You have been discharged from [facility], Patient Care Unit: [facility]??. If you have any questions regarding these instructions after you leave, please call us and we will be happy to assist you. [facility] Your Care Team Attending Physician Cheryl Beauchamp MD?? Reason for Admission UTERINE POLYPSDS CS Your Diagnosis Polyp of corpus uteri Primary Care Provider Nanci Melendez MD? Advance Directive Health Care Proxy on File Yes - Health Care Proxy What to do next Instructions From Your Doctor ?? Orders?? Instructions from your Care Team Please follow up with Dr. Beauchamp's office with any questions or concerns.?? You Need to Schedule the Following Appointments Follow Up with??As Needed Discharge Medications JOANN ACUNA :1990 Visit Date:06/21/2023 Medications: Please continue your medications until treatment is completed or stopped by your provider. You may resume your daily prescription medications. Discuss any questions related to medications with your provider. What How Much When Instructions Next Dose Unchanged Albuterol (albuterol 0.083% inhalation solution) 3 Milliliter Inhalation Every 6 hours as needed for for wheezing Unchanged Albuterol (Ventolin HFA 108 mcg/ inh inhalation aerosol with adapter) 2 puff(s) Inhalation Every 4 hours as needed for for wheezing Unchanged Cholecalciferol (Vitamin D3 1000 intl units oral tablet) 1 tab(s) Oral Daily Unchanged Cyanocobalamin (Vitamin B12) Unchanged dexlansoprazole (Dexilant 60 mg oral delayed release capsule) See instructions Take 1 capsule by mouth once daily ?? 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 Unchanged Famotidine (famotidine 20 mg oral tablet) 2 tab(s) Twice a day Unchanged Ferrous Sulfate (ferrous sulfate 325 mg oral tablet) 1 tab(s) Oral Twice a day Unchanged Fluticasone Nasal (Flonase) 1 spray(s) Daily Unchanged Fluticasone-Salmeterol (fluticasone-salmeterol 500 mcg-50 mcg inhalation powder) 1 Doses Inhalation Twice a day Unchanged Multivitamin, ( Multivitamins) Oral Daily Unchanged Norethindrone (norethindrone 0.35 mg oral tablet) 1 tab(s) Oral Daily Unchanged Ondansetron (ondansetron 4 mg oral tablet) See instructions TAKE 1 TABLET BY MOUTH EVERY 8 HOURS NEEDED FOR NAUSEA AND VOMITING FOR 5 DAYS ?? Ibuprofen as needed Tylenol next at 8:30pm Allergies (NKA means No Known Allergies) Other Environmental Allergy Reglan??(EYE TWITCHING) Education Materials Below is the list of Educational Leaflet Providered with your Discharge Instructions. Valuables and Belongings I fully understand and agree that [facility] accepts no responsibility for all my personal property including clothing, toilet articles, radios, jewelry, dentures, hearing aids, rings, money, or any other property that is in my possession or is brought to me after admission. I understand certain valuables may be placed in a hospital safe for a short period of time. I understand that the hospital is not liable for loss or damage due to accident, fire, or other natural occurrence while said property is in the safe. I accept full responsibility for any personal property that I keep with me, and will not hold the hospital responsible in case of loss or disappearance. I acknowledge that i have been encouraged to send valuables and belongings home. ?? Date for Pt to Sign Valuables/Belongings: 06/21/23 12:38:00 ?? Valuables & Belongings ?? Clothes Electronic devices Jewelry Monetary Items Personal devices Miscellaneous Medications (Valuables) Valuables at Bedside Jacket, Pants, Shirt, Shoes, Undergarments Cell phone ? Glasses ?? Inhaler Valuables Sent Home ? Valuables Sent to Security ? Other Discharge Information ? Pulmonary Rehab Status?? Pulmonary Rehab Discharge Status?? Respiratory Rate: 22 br/min ? Common Emergency Awareness Tips IS IT A STROKE? Act FAST and Check for these signs: FACE Does the face look uneven? ARM Does one arm drift down? SPEECH Does their speech sound strange? TIME Call 9-1-1 at any sign of stroke ?? Heart Attack Signs Chest discomfort: Most heart attacks involve discomfort in the center of the chest and lasts more than a few minutes, or goes away and comes back. It can feel like uncomfortable pressure, squeezing, fullness or pain. Discomfort in upper body: Symptoms can include pain or discomfort in one or both arms, back, neck, jaw or stomach. Shortness of breath: With or without discomfort. Other signs: Breaking out in a cold sweat, nausea, or lightheaded. Remember, MINUTES DO MATTER. If you experience any of these heart attack warning signs, call to get immediate medical attention! ?? Smoking can increase your chances of developing chronic health problems and can cause harmful effects to other family members in your house. If you smoke, you are strongly encouraged to quit. Please call [facility] [employer] Link at [phone] or [phone] ([phone]) or log in to [email or web address] for referrals to smoking cessation programs. ?? The National Suicide Prevention Hotline is available 23/10 if you or someone you know needs to find a reason to keep living. By calling 5-031-369-[employer] (8684) you'll be connected to a skilled, trained counselor at a crisis center in your area. SURGERY DISCHARGE INSTRUCTIONS SIGNATURE PAGE JOANN ACUNA Location:[facility] Registration Date and Time:06/21/2023 11:40 EDT Primary Care Physician: Nanci Melendez MD, Attending Physician: Cheryl Beauchamp MD, I JOANN ACUNA, have received the above patient education materials/instructions and have verbalized understanding. If ambulance or transport services are being used I further acknowledge beinggiven a choice of service. ?? If you need to contact me, please call me at this number: CIS . Patient/[employer] Professional Name: Joann Acuna Patient/[employer] Professional Signature: Relationship to Patient: self Witness Name/Signature: Date: 06/21/23 Patient Care team information Care Team Personnel Name: Macario DIEGO, Adela Marroquin Position: [facility] ANALYTICAL MANAGER MD Member Role: [facility] ANALYTICAL MANAGER Physician Address: Address: [address] [place] [address], [address] [facility] [address] Name: Nanci Melendez MD Position: [facility] Physician - Primary Care Member Role: PCP Address: Address: [address] [place] [address] Care Team Related Persons Name: SEAN ACUNA Address: [id number] Address: home [address] [place] [id number] Name: DERRELL ACUNA Address: home [address] [facility] [facility] [address] [place] [address] Name: DERRELL ACUNA Address: home [address] [place] [address] Name: DERRELL ACUNA Address: home [address] [facility] [facility] [address] [place] [address] Name: SHEBA CANO Address: home [address] [place] [address] Name: DAYANNA CANO Address: home [address] [place] [id number]
--- OUTSIDE RECORDS SUMMARY | 2024-02-22 11:41 | XMS_ITS | Continuity of Care Document ---
Author Organization [facility] Address [address] [place] [address], [address] [place] [address]- Care Team Providers Care Motor Vehicle Clerk Name Role Phone Al DIEGO, Nanci Segovia Primary Care Physician [phone] [facility] Date[facility]s): 05[facility]10[facility]20 - 06/09/20 [facility] [address] [place] [address], [address] [place] [address] Allergies, Adverse Reactions, Alerts Substance Reaction Severity [...] Virus Vaccine 11/21/89 Recor ded 1Result Comment: [facility]# [id number] PT. TOLERATED INJ. WITHOUT COMPLICATIONS....CO 2Result Comment: [facility]# [id number] PT. TOLERATED INJ. WITHOUT COMPLICATIONS...CO 3Result Comment: [04/06/2016] pt. tolerated inj. without complications...CO 4Result Comment: [04/14/2015] Measles mumps rubella titer Medications Advair Diskus 500 mcg-50 mcg inhalation powder 1, puffs, Inhalation, 2 times a day, # 1 each, Refills 12, Tot. Refills 12, Maintenance, 12/24/19 13:40:00 EDT, Route to Pharmacy Electronically, [id number], [facility], 161, cm, 06/12/19 8:56:00 EDT, Height, 106,... Start Date: 12/24/19 Status: Ordered Albuterol (Eqv-ProAir HFA) 90 mcg/inh inhalation aerosol 2 puffs, Inhalation, 4 times a day, PRN NEEDED FOR WHEEZING, # 18 Gm, 10 Refills, Maintenance, 06/07/20 14:34:00 EST, [facility], 50, INHALE 2 [...] 3 Refills, Maintenance, 12/24/19 13:41:00 EDT, ECCapsule, [facility], 161, cm, 06/12/19 8:56:00 EDT, Height, 106, kg, 09/11/18 13:37:00 EDT, Dry Weight Start Date: 12/24/19 Status: Ordered diclofenac sodium 75 mg oral delayed release tablet 1 tablet = 75 mg, By Mouth, 2 times a day, PRN for pain, TAKE WITH FOOD, # 28 tablet, 1 Refills, Maintenance, 12/16/19 9:22:00 EDT, Tablet, [facility], 161, cm, 06/12/19 [...] tablet, 3 Refills, Maintenance, 06/08/20 8:28:00 EST, [facility] 1967, 161, cm, 02/10/20 14:26:00 EST, Height, [...] tablet, 11 Refills, Maintenance, 02/10/20 14:25:00 EST, [facility], 161, c... Start [...] each, 5 Refills, Maintenance, 12/24/19 13:58:00 EDT, [facility] 1967, 161, cm, 208:56:00 EDT, Height, 106, [...]
--- OUTSIDE RECORDS SUMMARY | 2024-02-22 11:41 | XMS_ITS | Continuity of Care Document ---
Author Organization [facility] Address [address] [facility] [place] [address]- Care Team Providers Care Stem Threshing Machine Operator Name Role Phone Al DIEGO, Nanci Segovia Primary Care Physician [place] [facility] Date[facility]s): 01/13/22 - 01/20/22 [facility] [address] [facility] [place], [place] [address] Attending Physician: Adela Sorto MD [...] Recor ded 1Result Comment: [facility]# [id number] PT. TOLERATED INJ. WITHOUT COMPLICATIONS....CO 2Result Comment: [facility]# [id number] PT. TOLERATED INJ. WITHOUT COMPLICATIONS...CO 3Result Comment: [04/06/2016] pt. tolerated inj. without complications...CO 4Result Comment: [04/14/2015] Measles mumps rubella titer Medications Albuterol (Eqv-ProAir HFA) 90 mcg/inh inhalation aerosol See Instructions, INHALE 2 PUFFS BY MOUTH 4 TIMES DAILY NEEDED FOR WHEEZING, # 9 Gm, 6 Refills, 08/17/21 9:51:00 EDT, [facility], 25, INHALE 2 PUFFS BY MOUTH 4 TIMES DAILY NEEDED FORWHEEZING, 162, cm, 08/03/21 16:59:00 EDT, Height, 1... Start Date: 08/17/21 Status: Ordered albuterol 0.083% inhalation solution 3 mL = 2.5 mg, Inhalation, Every 6 hours, PRN for wheezing, # 100 each, 5 Refills, Maintenance, 08/17/21 9:51:00 EDT, Solution, [facility], replaces previous Rx for albuterol-ipatropium [...] once daily, # 90 capsule, 1 Refills, [facility], 162, cm, 09/16/21 15:34:00 EDT, [...] tablet, 11 Refills, Maintenance, 08/18/21 16:40:00EDT, Tablet, [facility], Partial fill upon patient [...] 08/17/21 9:51:00 EDT, Route to Pharmacy Electronically, [id number], [facility], 162, cm, 08/03/21 16:59:00 [...] tablet, 11 Refills, Maintenance, 03/16/21 11:27:00 EST, [facility], 162, cm, 03/10/21 14:17:00 [...] each, 11 Refills, Maintenance, 06/18/20 9:35:00 EDT, [facility], 161, cm, :18:00 EDT, [...] Name: Al DIEGO, Nanci Segovia Address: Address: [address] [place] [address]
--- OUTSIDE RECORDS SUMMARY | 2024-02-22 11:41 | XMS_ITS | Continuity of Care Document ---
Author Organization [facility] Address [address] [place] [address]- Care Team Providers Care Electric Train Driver Name Role Phone Al DIEGO, Nanci Segovia Primary Care Physician [facility]counter [facility] Date(s): 05/05/21 - 06/04/21 [facility] [address] [place] [address]- Allergies, Adverse Reactions, Alerts Substance Reaction Severity [...] 11/21/89 Recor ded 1Result Comment: [facility]# [id number] PT. TOLERATED INJ. WITHOUT COMPLICATIONS....CO 2Result Comment: [facility]# [id number] PT. TOLERATED INJ. WITHOUT COMPLICATIONS...CO 3Result Comment: [...] Gm, 10 Refills, Maintenance, 06/07/20 14:34:00 EST, [facility], 50, INHALE 2 PUFFS BY MOUTH 4 TIMES DAILY NEEDED FORWHEEZING, 161, cm, 02/10/20 14:26:00 EST, Height, 1... Start Date: 06/07/20 Status: Ordered albuterol 0.083% inhalation solution 3 mL = 2.5 mg, Inhalation, Every 6 hours, PRN for wheezing, # 25 each, 0 Refills, Maintenance, 04/04/21 12:33:00 EST, Solution, [facility] 1966, replaces previous Rx for albuterol-ipatropium solution, 162, cm, 03/10/21 14:17:00 EST, Height, 105.... Start Date: 04/04/21 Status: Ordered albuterol-ipratropium 3 mg-0.5 mg/3 ml inhalation solution 3 mL, Neb, 4 times a day, PRN shortness of breath, # 180 mL, 2 Refills, Maintenance, 04/04/21 8:55:00 EST, Solution, [facility] 1967, 3 mL Neb 4 times a day,PRN:shortness of breath, 162, cm, 03/10/21 14:17:00 EST, Height, 105.2, kg, 02/12/21 17:... Start Date: 04/04/21 Status: Ordered Apri 0.15 mg-0.03 mg oral tablet 1 tablet, By Mouth, Daily, start first tablet today, # 1 pack/packet, 3 Refills, Maintenance, 12/09/20 13:48:00 EDT, [facility] 1967, Partial fill upon patient [...] 0 Refills, Maintenance, 02/11/21 12:37:00 EST, ECCapsule, [facility], 163, cm, 01/01/21 10:10:00 EDT, Height Start Date: 02/11/21 Status: Ordered Endometrin 100 mg vaginal insert = 100 mg, Vaginally, 3 times a day, to add on day of transfer, # 90 supp, 5 Refills, Maintenance, 04/28/21 9:20:00 EST, [facility], Partial fill upon [...] each, Refills 5, Route to Pharmacy Electronically, [id number], [facility], 163, cm, 01/01/21 10:10:00 EDT, Height Start Date: 01/28/21 Status: Ordered metFORMIN 500 mg oral tablet, extended release See Instructions, take 1 tablet po w/dinner x1 wk, then increase to 2 tablets x 1-2 wks, then increase to 3 tablets 1-2 wks,then 4 tabs with dinner every day., # 120 tablet, 11 Refills, Maintenance, 03/16/21 11:27:00 EST, [facility], 162, c... Start Date: [...] each, 11 Refills, Maintenance, 06/18/20 9:35:00 EDT, [facility], 161, cm, 219:18:00 EDT, Height, 106, kg, 09/11/18 13:37:00 EDT... Start Date: 06/18/20 Status: Ordered oxyCODONE 5 mg oral tablet 5 mg, 1, tablet, By Mouth, Every 6 hours, PRN, # 8 tablet, Refills 0, Tot. Refills 0, Maintenance, Pain , Mild, 01/18/21 9:22:00 EDT, Route to Pharmacy Electronically, [facility] 1966, Partial fill upon patient request if the prescription is for... Start Date: 01/18/21 Status: Ordered Multivitamins By Mouth, Daily, 0 Refills, Maintenance, 06/05/18 11:27:06 EST Start Date: 06/05/18 Status: Ordered progesterone 50 mg/mL intramuscular solution 50mg/ml 1 ml (sesame oil), Intramuscular, Daily, # 30 mL, 5 Refills, Maintenance, 04/28/21 9:19:00 EST, [facility], Partial fill upon patient request if the prescription is for a schedule II opioid drug., 162, cm, 03/10/21 14:17:00 ES... Start Date: 04/28/21 Status: Ordered Provera 10 mg oral tablet 10 mg, 1, tablet, By Mouth, Daily, # 10 tablet, Refills 0, Tot. Refills 0, Maintenance, 04/04/21 10:58:00 EST, Route to Pharmacy Electronically, [facility] 1966, Partial fill upon patient [...] 01/18/21 9:22:00 EDT, Route to Pharm[facility], [email or web address], Partial fill upon patient request if the... Start Date: 01/18/21 Status: Ordered Valium 5 mg oral tablet 5 mg, 1, tablet, By Mouth, Once, One tablet one hour prior to procedure, may repeat x 1 as needed for anxiety, # 2 tablet, Refills 0, Tot. Refills 0, Soft Stop, 06/04/21 13:10:00 EST, Route to Pharmacy Electronically, [email or web address], Partial fi... Start Date: 06/04/21 [...] patch, 5 Refills, Maintenance, 04/28/21 9:19:00 EST, [facility], Partial fill upon [...]
--- OUTSIDE RECORDS SUMMARY | 2024-02-22 11:41 | XMS_ITS | Continuity of Care Document ---
Author Organization [facility] [employer] [facility] Address [address] [place] [address], [address] [place] [address]- Care Team Providers Care Elementary Classroom Teacher Name Role Phone Al DIEGO, Nanci Segovia Primary Care Physician [phone] Encounter [facility] Date(s): 01/04/22 - 01/11/22 [facility] [employer] [facility] [address], [address]th [place] [address]- Attending Physician: Anuradha Peters MD Referring Physician: [...] 1Result Comment: [facility]# [id number] PT. TOLERATED INJ. WITHOUT COMPLICATIONS....CO 2Result Comment: [facility]# [id number] PT. TOLERATED INJ. WITHOUT COMPLICATIONS...CO 3Result Comment: [04/06/2016] pt. tolerated inj. without complications...CO 4Result Comment: [04/14/2015] Measles mumps rubella titer Medications Albuterol (Eqv-ProAir HFA) 90 mcg/inh inhalation aerosol See Instructions, INHALE 2 PUFFS BY MOUTH 4 TIMES DAILY NEEDED FOR WHEEZING, # 9 Gm, 6 Refills, 08/17/21 9:51:00 EDT, [facility], 25, INHALE 2 PUFFS BY MOUTH 4 TIMES DAILY NEEDED FORWHEEZING, 162, cm, 08/03/21 16:59:00 EDT, Height, 1... Start Date: 08/17/21 Status: Ordered albuterol 0.083% inhalation solution 3 mL = 2.5 mg, Inhalation, Every 6 hours, PRN for wheezing, # 100 each, 5 Refills, Maintenance, 08/17/21 9:51:00 EDT, Solution, [facility] 1966, replaces previous Rx for [...] once daily, # 90 capsule, 1 Refills, [facility], 162, cm, 09/16/21 15:34:00 [...] 08/17/21 9:51:00 EDT, Route to Pharmacy Electronically, [id number], [facility], 162, cm, 08/03/21 16:59:00 [...] tablet, 11 Refills, Maintenance, 03/16/21 11:27:00 EST, [facility], 162, cm, 03/10/21 14:17:00 [...] [facility], 161, cm, :18:00 EDT, [...] Personnel Name: Nanci Melendez MD Address: Address: [address] [place] [address]
--- OUTSIDE RECORDS SUMMARY | 2024-02-22 11:41 | XMS_ITS | Continuity of Care Document ---
Author Organization [facility] Address Unknown Care Team Providers Care Continuous Drier Operator Name Role Phone Nanci Melendez MD Primary Care Physician [facility]counter [facility] Date(s): 12/29/20 - 01/28/[address] [facility] Allergies, Adverse Reactions, Alerts [...] ded 1Result Comment: [facility]# [id number] PT. TOLERATED INJ. WITHOUT COMPLICATIONS....CO 2Result Comment: [facility]# [id number] PT. TOLERATED INJ. WITHOUT COMPLICATIONS...CO 3Result Comment: [...] 10 Refills, Maintenance, 06/07/20 14:34:00 EST, [facility], 50, INHALE 2 PUFFS BY MOUTH 4 TIMES DAILY NEEDED FORWHEEZING, 161, cm, 02/10/20 14:26:00 EST, Height, 1... Start Date: 06/07/20 Status: Ordered albuterol-ipratropium 3 mg-0.5 mg/3 ml inhalation solution 3 mL, Neb, 4 times a day, PRN shortness of breath, # 180 mL, 11 Refills, Maintenance, 06/18/20 9:36:00 EDT, Solution, [facility], 3 [...] Refills, Maintenance, 12/24/19 13:41:00 EDT, ECCapsule, [facility], 161, cm, 06/12/19 8:56:00 EDT, Height, 106, kg, 09/11/18 13:37:00 EDT, Dry Weight Start Date: 12/24/19 Status: Ordered doxycycline hyclate 100 mg oral tablet 1 tablet = 100 mg, By Mouth, 2 times a day, # 28 tablet, 5 Refills, Maintenance, 12/31/20 8:23:00 EDT, [facility], Partial fill upon patient [...] each, Refills 5, Route to Pharmacy Electronically, [id number], [facility], 163, cm, 01/01/21 10:10:00 EDT, Height Start Date: 01/28/21 Status: Ordered ganirelix 250 mcg/0.5 ml subcutaneous injection 0.5 mL = 250 mcg, Subcutaneous Injection, Daily, # 5 each, 5 Refills, Acute 02/20/21 8:26:00 EST, 12/31/20 8:23:00 EDT, Solution, [facility], Partial fill upon patient request if theprescription is for a schedule II opioid drug., 161... Start Date: 12/31/20 Stop Date: 02/20/21 Status: Ordered Gonal-F 1050 units subcutaneous injection = 150 International_Units, Subcutaneous Injection, Daily, # 2 kit, 5 Refills, Maintenance, 218:23:00 EDT, [facility], Partial fill upon patient [...] 02/20/21 8:26:00 EST, 12/31/20 8:22:00 EDT, Powder, [facility], Partial fill upon patient [...] 11 Refills, Maintenance, 02/10/20 14:25:00 EST, [facility], 161, c... Start Date: [...] for... Start Date: 01/18/21 Status: Ordered Pregnyl 29166 u injectable powder for injection = 1,000 units, Intramuscular, Once, For use as trigger shot. Use 3 mL of diluent to reconstitute powder. Draw and administer 0.3 mL of reconsituted pregnyl for total dose of 1000 units., # 1 kit, 5 Refills, Soft Stop, 12/31/20 8:24:00 EDT, [facility] Sp... Start Date: 12/31/20 Status: Ordered Multivitamins By Mouth, Daily, 0 Refills, Maintenance, 06/05/18 11:27:06 EST Start Date: 06/05/18 Status: Ordered Prometrium 200 mg oral capsule See Instructions, vaginally 3 times a day, # 90 tablet, 5 Refills, Maintenance, 12/31/20 8:22:00 EDT, [facility], Partial fill upon patient [...] patch, 5 Refills, Maintenance, 12/31/20 8:23:00 EDT, [facility], Partial fill upon patient request if the prescription is for a schedule II opio... Start Date: 12/31/20 Status: Ordered yes yes, See Instructions, # 2 each, Refills 5, Tot. Refills 5, Maintenance, [place] Capped Insulin Syringe for lupron administration, 12/31/20 [...]
--- OUTSIDE RECORDS SUMMARY | 2024-02-22 11:41 | XMS_ITS | Continuity of Care Document ---
Author Organization [facility] [employer] [facility] Address [address] [place] [address], [place], [place] [address]- Care Team Providers Care Cleaner Window Name Role Phone Al DIEGO, Nanci Segovia Primary Care Physician [facility] Date(s): 01/04/22 - 03/18/22 [facility] [employer] [facility] [address], [address] [place] [address]- Attending Physician: Adela Sorto MD Referring Physician: [...] Virus Vaccine 11/21/89 Recor ded 1Result Comment: [facility]# [id number] PT. TOLERATED INJ. WITHOUT COMPLICATIONS....CO 2Result Comment: [facility]# [id number] PT. TOLERATED INJ. WITHOUT COMPLICATIONS...CO 3Result Comment: [04/06/2016] pt. tolerated inj. without complications...CO 4Result Comment: [04/14/2015] Measles mumps rubella titer Medications acetaminophen 325 mg oral tablet 650 mg, By Mouth, Every 4 hours, PRN, not to exceed 4000 mg/day, # 60 tablet, Refills 0, Tot. Refills 0, Maintenance, Pain , Mild, 02/08/22 8:05:00 EST, Route to Pharmacy Electronically, [facility] 1966, Partial fill upon patient request if the... Start Date: 02/08/22 Status: Ordered Albuterol (Eqv-ProAir HFA) 90 mcg/inh inhalation aerosol See Instructions, INHALE 2 PUFFS BY MOUTH 4 TIMES DAILY NEEDED FOR WHEEZING, # 9 Gm, 6 Refills, 08/17/21 9:51:00 EDT, [facility], 25, INHALE 2 PUFFS BY MOUTH 4 TIMES DAILY NEEDED FORWHEEZING, 162, cm, 08/03/21 16:59:00 EDT, Height, 1... Start Date: 08/17/21 Status: Ordered albuterol 0.083% inhalation solution 3 mL = 2.5 mg, Inhalation, Every 6 hours, PRN for wheezing, # 100 each, 5 Refills, Maintenance, 08/17/21 9:51:00 EDT, Solution, [facility] 1966, replaces previous Rx for albuterol-ipatropium [...] mL, 0 Refills, Maintenance, 03/17/22 15:45:00 EST, [facility], Partial fill upon patient request if the prescription is for a schedule II opioid drug., 163, cm, 03/17/22... Start Date: 03/17/22 Stop Date: 03/31/22 Status: Ordered Dexilant 60 mg oral delayed release capsule See Instructions, Take 1 capsule by mouth once daily, # 90 capsule, 0 Refills, 03/14/22 14:26:00 EST, [facility], 163, cm, 02/27/22 9:06:00 EST, Height, 128.2, kg, 02/05/22 12:22:00 EST, Dry Weight Start Date: 03/14/22 Status: Ordered Diflucan 150 mg oral tablet 1 tablet = 150 mg, By Mouth, Once, # 1 tablet, 0 Refills, Soft Stop, 03/01/22 15:59:00 EST, [facility], Partial fill upon patient request [...] tablet, 11 Refills, Maintenance, 08/18/21 16:40:00EDT, [facility]t, [facility], Partial fill upon patient request [...] 08/17/21 9:51:00 EDT, Route to Pharmacy Electronically, [id number], [facility], 162, cm, 08/03/21 16:59:00 EDT, Height, 110, kg, 08/03/21 1... Start Date: 08/17/21 Status: Ordered ibuprofen 800 mg oral tablet 800 mg, 1, tablet, By Mouth, Every 8 hours, PRN, not to exceed 3200 mg/day with food or milk, # 40 tablet, Refills 0, Tot. Refills 0, Maintenance, Pain , Moderate, 02/08/22 8:05:00 EST, Route to Pharmacy Electronically, [facility], Partial... Start Date: 02/08/22 Status: [...] Team Personnel Name: Nanci Melendez MD Position: [facility] Primary Care Physician Member Role: PCP Address: Address: [address] [place] [address]- Care Team Related Persons Name: SEAN RITCHIE Address: [id number] Address: home [address] [place] [address] Name: DERRELL RITCHIE Address: home [address] [place] [address] Name: DERRELL RITCHIE Address: home [address] [place] [address] Name: DERRELL RITCHIE Address: home [address] [address] [facility] [address] [address] [place] [address] Name: SHEBA CANO Address: [address] [address] Name: DAYANNA CANO Address: [address] [address]
--- OUTSIDE RECORDS SUMMARY | 2024-02-22 11:41 | XMS_ITS | Continuity of Care Document ---
Author Organization [facility] Address Unknown Care Team Providers Care Licensed Direct Entry Midwife Name Role Phone Nanci Melendez MD Primary Care Physician [facility]counter [facility] Date(s): 05/06/21 - 06/05/21 [facility] Allergies, Adverse Reactions, Alerts Substance [...] ded 1Result Comment: [facility]# [id number] PT. TOLERATED INJ. WITHOUT COMPLICATIONS....CO 2Result Comment: [facility]# [id number] PT. TOLERATED INJ. WITHOUT COMPLICATIONS...CO 3Result Comment: [...] Gm, 10 Refills, Maintenance, 06/07/20 14:34:00 EST, [facility], 50, INHALE 2 PUFFS BY MOUTH 4 TIMES DAILY NEEDED FORWHEEZING, 161, cm, 02/10/20 14:26:00 EST, Height, 1... Start Date: 06/07/20 Status: Ordered albuterol 0.083% inhalation solution 3 mL = 2.5 mg, Inhalation, Every 6 hours, PRN for wheezing, # 25 each, 0 Refills, Maintenance, 04/04/21 12:33:00 EST, Solution, [facility], replaces previous Rx for albuterol-ipatropium solution, 162, cm, 03/10/21 14:17:00 EST, Height, 105.... Start Date: 04/04/21 Status: Ordered albuterol-ipratropium 3 mg-0.5 mg/3 ml inhalation solution 3 mL, Neb, 4 times a day, PRN shortness of breath, # 180 mL, 2 Refills, Maintenance, 04/04/21 8:55:00 EST, Solution, [facility], 3 mL Neb 4 times a day,PRN:shortness of breath, 162, cm, 03/10/21 14:17:00 EST, Height, 105.2, kg, 02/12/21 17:... Start Date: 04/04/21 Status: Ordered Apri 0.15 mg-0.03 mg oral tablet 1 tablet, By Mouth, Daily, start first tablet today, # 1 pack/packet, 3 Refills, Maintenance, 12/09/20 13:48:00 EDT, [facility], Partial fill upon [...] 0 Refills, Maintenance, 02/11/21 12:37:00 EST, ECCapsule, [facility], 163, cm, 01/01/21 10:10:00 EDT, Height Start Date: 02/11/21 Status: Ordered Endometrin 100 mg vaginal insert = 100 mg, Vaginally, 3 times a day, to add on day of transfer, # 90 supp, 5 Refills, Maintenance, 04/28/21 9:20:00 EST, [facility], Partial fill upon patient request [...] each, Refills 5, Route to Pharmacy Electronically, [id number], [facility], 163, cm, 01/01/21 10:10:00 EDT, Height Start Date: 01/28/21 Status: Ordered metFORMIN 500 mg oral tablet, extended release See Instructions, take 1 tablet po w/dinner x1 wk, then increase to 2 tablets x 1-2 wks, then increase to 3 tablets 1-2 wks,then 4 tabs with dinner every day., # 120 tablet, 11 Refills, Maintenance, 03/16/21 11:27:00 EST, [facility], 162, c... Start [...] each, 11 Refills, Maintenance, 06/18/20 9:35:00 EDT, [facility], 161, cm, 219:18:00 EDT, Height, 106, kg, 09/11/18 13:37:00 EDT... Start Date: 06/18/20 Status: Ordered oxyCODONE 5 mg oral tablet 5 mg, 1, tablet, By Mouth, Every 6 hours, PRN, # 8 tablet, Refills 0, Tot. Refills 0, Maintenance, Pain , Mild, 01/18/21 9:22:00 EDT, Route to Pharmacy Electronically, [facility], Partial fill upon patient request if the prescription is for... Start Date: 01/18/21 Status: Ordered Multivitamins By Mouth, Daily, 0 Refills, Maintenance, 06/05/18 11:27:06 EST Start Date: 06/05/18 Status: Ordered progesterone 50 mg/mL intramuscular solution 50mg/ml 1 ml (sesame oil), Intramuscular, Daily, # 30 mL, 5 Refills, Maintenance, 04/28/21 9:19:00 EST, [facility], Partial fill upon patient request if the prescription is for a schedule II opioid drug., 162, cm, 03/10/21 14:17:00 ES... Start Date: 04/28/21 Status: Ordered Provera 10 mg oral tablet 10 mg, 1, tablet, By Mouth, Daily, # 10 tablet, Refills 0, Tot. Refills 0, Maintenance, 04/04/21 10:58:00 EST, [facility], Partial fill upon patient request [...] 01/18/21 9:22:00 EDT, [facility]ically[facility], Partial fill upon patient request if the... Start Date: 01/18/21 Status: Ordered Valium 5 mg oral tablet 5 mg, 1, tablet, By Mouth, Once, One tablet one hour prior to procedure, may repeat x 1 as needed for anxiety, # 2 tablet, Refills 0, Tot. Refills 0, Soft Stop, 06/04/21 13:10:00 EST, Route to Pharmacy Electronically, [facility] 1966, Partial fi... Start Date: 06/04/21 [...] patch, 5 Refills, Maintenance, 04/28/21 9:19:00 EST, [facility], Partial fill upon patient request [...]
--- OUTSIDE RECORDS SUMMARY | 2024-02-22 11:42 | XMS_ITS | Continuity of Care Document ---
Author Organization [facility] ter Address [address] [place] [id number]- Care Team Providers Care Child Care Director Name Role Phone Nanci Melendez MD Primary Care Physician [phone] Encounter [facility] Date(s): 06/10/21 - 06/10/[address] [address] Discharge Disposition: A-D/C Home Attending Physician: Cheryl [...] Vaccine 11/21/89 Recor ded 1Result Comment: [facility]# [id number] PT. TOLERATED INJ. WITHOUT COMPLICATIONS....CO 2Result Comment: [facility]# [id number] PT. TOLERATED INJ. WITHOUT COMPLICATIONS...CO 3Result Comment: [...] EST, Height, 105.2, kg, 02/12/21 17:08:00 EST, DrFarrah. Start Date: 04/28/21 Status: Ordered Albuterol (Eqv-ProAir HFA) 90 mcg/inh inhalation aerosol 2 puffs, Inhalation, 4 times a day, PRN NEEDED FOR WHEEZING, # 18 Gm, 10 Refills, Maintenance, 06/07/20 14:34:00 EST, [facility], 50, INHALE 2 PUFFS BY MOUTH 4 TIMES DAILY NEEDED FORWHEEZING, 161, cm, 02/10/20 14:26:00 EST, Height, 1... Start Date: 06/07/20 Status: Ordered albuterol 0.083% inhalation solution 3 mL = 2.5 mg, Inhalation, Every 6 hours, PRN for wheezing, # 25 each, 0 Refills, Maintenance, 04/04/21 12:33:00 EST, Solution, [facility] 1966, replaces previous Rx for albuterol-ipatropium solution, 162, cm, 03/10/21 14:17:00 EST, Height, 105.... Start Date: 04/04/21 Status: Ordered albuterol-ipratropium 3 mg-0.5 mg/3 ml inhalation solution 3 mL, Neb, 4 times a day, PRN shortness of breath, # 180 mL, 2 Refills, Maintenance, 04/04/21 8:55:00 EST, Solution, [facility] 1967, 3 mL Neb 4 times a day,PRN:shortness of breath, 162, cm, 03/10/21 14:17:00 EST, Height, 105.2, kg, 02/12/21 17:... Start Date: 04/04/21 Status: Ordered Apri 0.15 mg-0.03 mg oral tablet 1 tablet, By Mouth, Daily, start first tablet today, # 1 pack/packet, 3 Refills, Maintenance, 12/09/20 13:48:00 EDT, [facility] 1967, Partial fill [...] 0 Refills, Maintenance, 02/11/21 12:37:00 EST, ECCapsule, [facility], 163, cm, 01/01/21 10:10:00 EDT, Height Start Date: 02/11/21 Status: Ordered Endometrin 100 mg vaginal insert = 100 mg, Vaginally, 3 times a day, to add on day of transfer, # 90 supp, 5 Refills, Maintenance, 04/28/21 9:20:00 EST, [facility], Partial fill upon patient [...] each, Refills 5, Route to Pharmacy Electronically, [id number], [facility], 163, cm, 01/01/21 10:10:00 EDT, Height Start Date: 01/28/21 Status: Ordered metFORMIN 500 mg oral tablet, extended release See Instructions, take 1 tablet po w/dinner x1 wk, then increase to 2 tablets x 1-2 wks, then increase to 3 tablets 1-2 wks,then 4 tabs with dinner every day., # 120 tablet, 11 Refills, Maintenance, 03/16/21 11:27:00 EST, [facility], 162, c... Start [...] each, 11 Refills, Maintenance, 06/18/20 9:35:00 EDT, [facility], 161, cm, :18:00 EDT, Height, 106, kg, 09/11/18 13:37:00 EDT... Start Date: 06/18/20 Status: Ordered oxyCODONE 5 mg oral tablet 5 mg, 1, tablet, By Mouth, Every 6 hours, PRN, # 8 tablet, Refills 0, Tot. Refills 0, Maintenance, Pain , Mild, 01/18/21 9:22:00 EDT, Route to Pharmacy Electronically, [facility] 1967, Partial fill upon patient request if the prescription is for... Start Date: 01/18/21 Status: Ordered Multivitamins By Mouth, Daily, 0 Refills, Maintenance, 06/05/18 11:27:06 EST Start Date: 06/05/18 Status: Ordered progesterone 50 mg/mL intramuscular solution 50mg/ml 1 ml (sesame oil), Intramuscular, Daily, # 30 mL, 5 Refills, Maintenance, 04/28/21 9:19:00 EST, [facility], Partial fill upon patient request if the prescription is for a schedule II opioid drug., 162, cm, 03/10/21 14:17:00 ES... Start Date: 04/28/21 Status: Ordered Provera 10 mg oral tablet 10 mg, 1, tablet, By Mouth, Daily, # 10 tablet, Refills 0, Tot. Refills 0, Maintenance, 04/04/21 10:58:00 EST, [facility], Partial fill upon patient request [...] 01/18/21 9:22:00 EDT, [facility], Partial fill upon patient request if the... Start Date: 01/18/21 Status: Ordered Valium 5 mg oral tablet 5 mg, 1, tablet, By Mouth, Once, One tablet one hour prior to procedure, may repeat x 1 as needed for anxiety, # 2 tablet, Refills 0, Tot. Refills 0, Soft Stop, 06/04/21 13:10:00 EST, [facility], Partial fi... Start Date: 06/04/21 [...] patch, 5 Refills, Maintenance, 04/28/21 9:19:00 EST, [facility], Partial fill upon patient [...]
--- OUTSIDE RECORDS SUMMARY | 2024-02-22 11:42 | XMS_ITS | Continuity of Care Document ---
Author Organization [facility] Address [address] [place] [address]- Care Team Providers Care Hydrologic Modeler Name Role Phone Nanci Melendez MD Primary Care Physician Encounter [facility] Date(s): 06/02/20 - 07/02/20 [facility] [address] [place], [place] [address] Allergies, Adverse Reactions, Alerts Substance Reaction Severity [...] Recor ded 1Result Comment: [facility]# [id number] PT. TOLERATED INJ. WITHOUT COMPLICATIONS....CO 2Result Comment: [facility]# [id number] PT. TOLERATED INJ. WITHOUT COMPLICATIONS...CO 3Result Comment: [04/06/2016] pt. tolerated inj. without complications...CO 4Result Comment: [04/14/2015] Measles mumps rubella titer Medications Advair Diskus 500 mcg-50 mcg inhalation powder 1, puffs, Inhalation, 2 times a day, # 1 each, Refills 12, Tot. Refills 12, Maintenance, 12/24/19 13:40:00 EDT, Route to Pharmacy Electronically, [id number], [facility], 161, cm, 06/12/19 8:56:00 EDT, Height, 106,... Start Date: 12/24/19 Status: Ordered Albuterol (Eqv-ProAir HFA) 90 mcg/inh inhalation aerosol 2 puffs, Inhalation, 4 times a day, PRN NEEDED FOR WHEEZING, # 18 Gm, 10 Refills, Maintenance, 06/07/20 14:34:00 EST, [facility], 50, INHALE 2 PUFFS BY MOUTH 4 TIMES DAILY NEEDED FORWHEEZING, 161, cm, 02/10/20 14:26:00 EST, Height, 1... Start Date: 06/07/20 Status: Ordered albuterol-ipratropium 3 mg-0.5 mg/3 ml inhalation solution 3 mL, Neb, 4 times a day, PRN shortness of breath, # 180 mL, 11 Refills, Maintenance, 06/18/20 9:36:00 EDT, Solution, [facility], 3 mL Neb [...] 3 Refills, Maintenance, 12/24/19 13:41:00 EDT, ECCapsule, [facility], 161, cm, 06/12/19 [...] tablet, 3 Refills, Maintenance, 06/08/20 8:28:00 EST, [facility], 161, cm, 02/10/20 [...] tablet, 11 Refills, Maintenance, 02/10/20 14:25:00 EST, [facility], 161, c... Start [...] each, 11 Refills, Maintenance, 06/18/20 9:35:00 EDT, [facility], 161, cm, 219:18:00 [...]
--- OUTSIDE RECORDS SUMMARY | 2024-02-22 11:42 | XMS_ITS | Continuity of Care Document ---
Author Organization [facility] Address [address] [place] [address]- Care Team Providers Care Parts Coordinator Name Role Phone Nanci Melendez MD Primary Care Physician Encounter [facility] Date(s): 05/05/20 - 06/04/20 [facility] [address] [place], [place] [address] Attending Physician: Marely Fu Admitting Physician: Marely [...] Virus Vaccine 11/21/89 Recor ded 1Result Comment: [facility]# [id number] PT. TOLERATED INJ. WITHOUT COMPLICATIONS....CO 2Result Comment: [facility]# [id number] PT. TOLERATED INJ. WITHOUT COMPLICATIONS...CO 3Result Comment: [04/06/2016] pt. tolerated inj. without complications...CO 4Result Comment: [04/14/2015] Measles mumps rubella titer Medications Advair Diskus 500 mcg-50 mcg inhalation powder 1, puffs, Inhalation, 2 times a day, # 1 each, Refills 12, Tot. Refills 12, Maintenance, 12/24/19 13:40:00 EDT, Route to Pharmacy Electronically, [id number], [facility], 161, cm, 06/12/19 8:56:00 EDT, Height, 106,... Start Date: 12/24/19 Status: Ordered albuterol 0.083% inhalation solution 3 mL = 2.5 mg, Inhalation, Every 6 hours, PRN for wheezing, # 60 each, 11 Refills, Maintenance, 12/24/19 13:40:00 EDT, Solution, [facility], 161, cm, 06/12/19 [...] Refills, Maintenance, 12/24/19 13:41:00 EDT, ECCapsule, [facility], 161, cm, 06/12/19 8:56:00 EDT, Height, 106, kg, 09/11/18 13:37:00 EDT, Dry Weight Start Date: 12/24/19 Status: Ordered diclofenac sodium 75 mg oral delayed release tablet 1 tablet = 75 mg, By Mouth, 2 times a day, PRN for pain, TAKE WITH FOOD, # 28 tablet, 1 Refills, Maintenance, 12/16/19 9:22:00 EDT, Tablet, [facility], 161, cm, 06/12/19 [...] tablet, 3 Refills, Maintenance, 02/09/20 17:27:00 EST, [facility], 161, cm, 06/12/19 8:56:00 EDT, Height, [...] tablet, 11 Refills, Maintenance, 02/10/20 14:25:00 EST, [facility], 161, c... Start [...] 5 Refills, Maintenance, 12/24/19 13:58:00 EDT, [facility], 161, cm, 208:56:00 [...] 13:40:00 EDT, Inhaler, Route to Pharmacy Electronically, [id number],[facility], 161, cm, 06/12/19 8:56:00 ED... Start Date: 12/24/19 Status: Ordered ProAir HFA 90 mcg/inh inhalation aerosol with adapter 2, puffs, Inhalation, 4 times a day, PRN, # 2 each, Refills 5, Tot. Refills 5, Maintenance, 05/19/19 15:55:00 EST, Aerosol, Route to Pharmacy Electronically, [id number], [facility], 161, cm, 01/20/19 [...]
--- OUTSIDE RECORDS SUMMARY | 2024-02-22 11:42 | XMS_ITS | Continuity of Care Document ---
Author Organization [facility] Address Unknown Care Team Providers Care Instrument Technologist Name Role Phone Nanci Melendez MD Primary Care Physician [phone] Encounter [facility] Date(s): 05/02/21 - 06/01/21 [facility] Allergies, Adverse Reactions, Alerts [...] Vaccine 11/21/89 Recor ded 1Result Comment: [facility]# [id number] PT. TOLERATED INJ. WITHOUT COMPLICATIONS....CO 2Result Comment: [facility]# [id number] PT. TOLERATED INJ. WITHOUT COMPLICATIONS...CO 3Result Comment: [...] Gm, 10 Refills, Maintenance, 06/07/20 14:34:00 EST, [facility], 50, INHALE 2 PUFFS BY MOUTH 4 TIMES DAILY NEEDED FORWHEEZING, 161, cm, 02/10/20 14:26:00 EST, Height, 1... Start Date: 06/07/20 Status: Ordered albuterol 0.083% inhalation solution 3 mL = 2.5 mg, Inhalation, Every 6 hours, PRN for wheezing, # 25 each, 0 Refills, Maintenance, 04/04/21 12:33:00 EST, Solution, [facility], replaces previous Rx for albuterol-ipatropium solution, 162, cm, 03/10/21 14:17:00 EST, Height, 105.... Start Date: 04/04/21 Status: Ordered albuterol-ipratropium 3 mg-0.5 mg/3 ml inhalation solution 3 mL, Neb, 4 times a day, PRN shortness of breath, # 180 mL, 2 Refills, Maintenance, 04/04/21 8:55:00 EST, Solution, [facility], 3 mL Neb 4 times a day,PRN:shortness of breath, 162, cm, 03/10/21 14:17:00 EST, Height, 105.2, kg, 02/12/21 17:... Start Date: 04/04/21 Status: Ordered Apri 0.15 mg-0.03 mg oral tablet 1 tablet, By Mouth, Daily, start first tablet today, # 1 pack/packet, 3 Refills, Maintenance, 12/09/20 13:48:00 EDT, [facility], Partial fill upon patient [...] 0 Refills, Maintenance, 02/11/21 12:37:00 EST, ECCapsule, [facility], 163, cm, 01/01/21 10:10:00 [...] each, Refills 5, Route to Pharmacy Electronically, [id number], [facility], 163, cm, 01/01/21 10:10:00 EDT, Height Start Date: 01/28/21 Status: Ordered metFORMIN 500 mg oral tablet, extended release See Instructions, take 1 tablet po w/dinner x1 wk, then increase to 2 tablets x 1-2 wks, then increase to 3 tablets 1-2 wks,then 4 tabs with dinner every day., # 120 tablet, 11 Refills, Maintenance, 03/16/21 11:27:00 EST, [facility], 162, c... Start Date: [...] each, 11 Refills, Maintenance, 06/18/20 9:35:00 EDT, [facility], 161, cm, 219:18:00 EDT, Height, 106, kg, 09/11/18 13:37:00 EDT... Start Date: 06/18/20 Status: Ordered oxyCODONE 5 mg oral tablet 5 mg, 1, tablet, By Mouth, Every 6 hours, PRN, # 8 tablet, Refills 0, Tot. Refills 0, Maintenance, Pain , Mild, 01/18/21 9:22:00 EDT, Route to Pharmacy Electronically, [facility], Partial fill upon patient request if the prescription is for... Start Date: 01/18/21 Status: Ordered Multivitamins By Mouth, Daily, 0 Refills, Maintenance, 06/05/18 11:27:06 EST Start Date: 06/05/18 Status: Ordered progesterone 50 mg/mL intramuscular solution 50mg/ml 1 ml (sesame oil), Intramuscular, Daily, # 30 mL, 5 Refills, Maintenance, 04/28/21 9:19:00 EST, [facility], Partial fill upon patient request if the prescription is for a schedule II opioid drug., 162, cm, 03/10/21 14:17:00 ES... Start Date: 04/28/21 Status: Ordered Provera 10 mg oral tablet 10 mg, 1, tablet, By Mouth, Daily, # 10 tablet, Refills 0, Tot. Refills 0, Maintenance, 04/04/21 10:58:00 EST, Route to Pharmacy Electronically, [facility], Partial fill upon patient [...] 01/18/21 9:22:00 EDT, Route to Pharmacy Electronically, [facility], Partial fill upon patient [...]
--- OUTSIDE RECORDS SUMMARY | 2024-02-22 11:42 | XMS_ITS | Continuity of Care Document ---
Author Organization [facility] Address [address] [place] [address], [address] [place] [address]- Care Team Providers Care Electrotyper Helper Name Role Phone Al DIEGO, Nanci Segovia Primary Care Physician Encounter [facility] Date(s): 03/08/20 - 04/07/20 [facility] [address] [place] [address], [address] [place] [address] Allergies, Adverse Reactions, Alerts Substance Reaction Severity [...] Virus Vaccine 11/21/89 Recor ded 1Result Comment: [facility]# [id number] PT. TOLERATED INJ. WITHOUT COMPLICATIONS....CO 2Result Comment: [facility]# [id number] PT. TOLERATED INJ. WITHOUT COMPLICATIONS...CO 3Result Comment: [04/06/2016] pt. tolerated inj. without complications...CO 4Result Comment: [04/14/2015] Measles mumps rubella titer Medications Advair Diskus 500 mcg-50 mcg inhalation powder 1, puffs, Inhalation, 2 times a day, # 1 each, Refills 12, Tot. Refills 12, Maintenance, 12/24/19 13:40:00 EDT, Route to Pharmacy Electronically, [id number], [facility], 161, cm, 06/12/19 8:56:00 EDT, Height, 106,... Start Date: 12/24/19 Status: Ordered albuterol 0.083% inhalation solution 3 mL = 2.5 mg, Inhalation, Every 6 hours, PRN for wheezing, # 60 each, 11 Refills, Maintenance, 12/24/19 13:40:00 EDT, Solution, [facility], 161, cm, 06/12/19 8:56:00 [...] 3 Refills, Maintenance, 12/24/19 13:41:00 EDT, ECCapsule, [facility], 161, cm, 06/12/19 8:56:00 EDT, Height, 106, kg, 09/11/18 13:37:00 EDT, Dry Weight Start Date: 12/24/19 Status: Ordered diclofenac sodium 75 mg oral delayed release tablet 1 tablet = 75 mg, By Mouth, 2 times a day, PRN for pain, TAKE WITH FOOD, # 28 tablet, 1 Refills, Maintenance, 12/16/19 9:22:00 EDT, Tablet, [facility], 161, cm, 06/12/19 8:56:00 [...] tablet, 3 Refills, Maintenance, 02/09/20 17:27:00 EST, [facility], 161, cm, 06/12/19 8:56:00 [...] tablet, 11 Refills, Maintenance, 02/10/20 14:25:00 EST, [facility], 161, c... Start Date: [...] each, 5 Refills, Maintenance, 12/24/19 13:58:00 EDT, [facility], 161, cm, 208:56:00 EDT, Height, [...] 13:40:00 EDT, Inhaler, Route to Pharmacy Electronically, [id number],[facility], 161, cm, 06/12/19 8:56:00 ED... Start Date: 12/24/19 Status: Ordered ProAir HFA 90 mcg/inh inhalation aerosol with adapter 2, puffs, Inhalation, 4 times a day, PRN, # 2 each, Refills 5, Tot. Refills 5, Maintenance, 05/19/19 15:55:00 EST, Aerosol, Route to Pharmacy Electronically, [id number], [facility], 161, cm, 01/20/19 11:38:00 [...]
--- OUTSIDE RECORDS SUMMARY | 2024-02-22 11:42 | XMS_ITS | Continuity of Care Document ---
Author Organization [facility] Address Unknown Care Team Providers Care Automatic Lump Making Machine Tender Name Role Phone Nanci Melendez MD Primary Care Physician [phone] Encounter [facility] Date(s): 01/15/21 - 01/22/21 [facility] Attending Physician: Jalyn Cabrera MD Referring Physician: [...] Virus Vaccine 11/21/89 Recor ded 1Result Comment: [facility]# [id number] PT. TOLERATED INJ. WITHOUT COMPLICATIONS....CO 2Result Comment: [facility]# [id number] PT. TOLERATED INJ. WITHOUT COMPLICATIONS...CO 3Result Comment: [...] 12/24/19 13:40:00 EDT, Route to Pharmacy Electronically, [id number], [facility], 161, cm, 06/12/19 8:56:00 EDT, Height, 106,... Start Date: 12/24/19 Status: Ordered Albuterol (Eqv-ProAir HFA) 90 mcg/inh inhalation aerosol 2 puffs, Inhalation, 4 times a day, PRN NEEDED FOR WHEEZING, # 18 Gm, 10 Refills, Maintenance, 06/07/20 14:34:00 EST, [facility], 50, INHALE 2 PUFFS BY MOUTH 4 TIMES DAILY NEEDED FORWHEEZING, 161, cm, 02/10/20 14:26:00 EST, Height, 1... Start Date: 06/07/20 Status: Ordered albuterol-ipratropium 3 mg-0.5 mg/3 ml inhalation solution 3 mL, Neb, 4 times a day, PRN shortness of breath, # 180 mL, 11 Refills, Maintenance, 06/18/20 9:36:00 EDT, Solution, [facility], 3 mL Neb 4 times a day,PRN:shortness of breath, 161, cm, 06/18/20 9:18:00 EDT, Height, 106, kg, 09/11/18 13:37... Start Date: 06/18/20 Status: Ordered Apri 0.15 mg-0.03 mg oral tablet 1 tablet, By Mouth, Daily, start first tablet today, # 1 pack/packet, 3 Refills, Maintenance, 12/09/20 13:48:00 EDT, [facility], Partial fill upon patient [...] 3 Refills, Maintenance, 12/24/19 13:41:00 EDT, ECCapsule, [facility], 161, cm, 06/12/19 8:56:00 EDT, Height, 106, kg, 09/11/18 13:37:00 EDT, Dry Weight Start Date: 12/24/19 Status: Ordered doxycycline hyclate 100 mg oral tablet 1 tablet = 100 mg, By Mouth, 2 times a day, # 28 tablet, 5 Refills, Maintenance, 12/31/20 8:23:00 EDT, [facility], Partial fill upon patient request [...] 02/20/21 8:26:00 EST, 12/31/20 8:23:00 EDT, Solution, [facility], Partial fill upon patient request if theprescription is for a schedule II opioid drug., 161... Start Date: 12/31/20 Stop Date: 02/20/21 Status: Ordered Gonal-F 1050 units subcutaneous injection = 150 International_Units, Subcutaneous Injection, Daily, # 2 kit, 5 Refills, Maintenance, 218:23:00 EDT, [facility], Partial fill upon patient request [...] 02/20/21 8:26:00 EST, 12/31/20 8:22:00 EDT, Powder, [facility], Partial fill upon patient requestif [...] tablet, 11 Refills, Maintenance, 02/10/20 14:25:00 EST, [facility], 161, c... Start Date: [...] Refills, Maintenance, 06/18/20 9:35:00 EDT, [facility], 161, cm, 219:18:00 EDT, Height, 106, kg, 09/11/18 13:37:00 EDT... Start Date: 06/18/20 Status: Ordered oxyCODONE 5 mg oral tablet 5 mg, 1, tablet, By Mouth, Every 6 hours, PRN, # 8 tablet, Refills 0, Tot. Refills 0, Maintenance, Pain , Mild, 01/18/21 9:22:00 EDT, Route to Pharmacy Electronically, [facility], Partial fill upon patient request if the prescription is for... Start Date: 01/18/21 Status: Ordered Pregnyl 94254 u injectable powder for injection = 1,000 units, Intramuscular, Once, For use as trigger shot. Use 3 mL of diluent to reconstitute powder. Draw and administer 0.3 mL of reconsituted pregnyl for total dose of 1000 units., # 1 kit, 5 Refills, Soft Stop, 12/31/20 8:24:00 EDT, [facility]... Start Date: 12/31/20 Status: Ordered Multivitamins By Mouth, Daily, 0 Refills, Maintenance, 06/05/18 11:27:06 EST Start Date: 06/05/18 Status: Ordered Prometrium 200 mg oral capsule See Instructions, vaginally 3 times a day, # 90 tablet, 5 Refills, Maintenance, 12/31/20 8:22:00 EDT, [facility], Partial fill upon patient request [...] 9:22:00 EDT, Route to Pharmacy Electronically, [facility], Partial fill upon patient request [...] patch, 5 Refills, Maintenance, 12/31/20 8:23:00 EDT, [facility], Partial fill upon patient request if the prescription is for a schedule II opio... Start Date: 12/31/20 Status: Ordered yes yes, See Instructions, # 2 each, Refills 5, Tot. Refills 5, Maintenance, Foster Capped Insulin Syringe for lupron administration, 12/31/20 [...]
--- OUTSIDE RECORDS SUMMARY | 2024-02-22 11:42 | XMS_ITS | Continuity of Care Document ---
Author Organization [facility] Address Unknown Care Team Providers Care Under Sheriff Name Role Phone Al DIEGO, Nanci Segovia Primary Care Physician [phone] Encounter [facility] Date(s): 10/26/20 - 11/25/20 [facility] Allergies, Adverse Reactions, Alerts [...] 1Result Comment: [facility]# [id number] PT. TOLERATED INJ. WITHOUT COMPLICATIONS....CO 2Result Comment: [facility]# [id number] PT. TOLERATED INJ. WITHOUT COMPLICATIONS...CO 3Result Comment: [04/06/2016] pt. tolerated inj. without complications...CO 4Result Comment: [04/14/2015] Measles mumps rubella titer Medications Advair Diskus 500 mcg-50 mcg inhalation powder 1, puffs, Inhalation, 2 times a day, # 1 each, Refills 12, Tot. Refills 12, Maintenance, 12/24/19 13:40:00 EDT, Route to Pharmacy Electronically, [id number], [facility] 1967, 161, cm, 06/12/19 8:56:00 EDT, Height, 106,... Start Date: 12/24/19 Status: Ordered Albuterol (Eqv-ProAir HFA) 90 mcg/inh inhalation aerosol 2 puffs, Inhalation, 4 times a day, PRN NEEDED FOR WHEEZING, # 18 Gm, 10 Refills, Maintenance, 06/07/20 14:34:00 EST, [facility] 1967, 50, INHALE 2 PUFFS BY MOUTH 4 TIMES DAILY NEEDED FORWHEEZING, 161, cm, 02/10/20 14:26:00 EST, Height, 1... Start Date: 06/07/20 Status: Ordered albuterol-ipratropium 3 mg-0.5 mg/3 ml inhalation solution 3 mL, Neb, 4 times a day, PRN shortness of breath, # 180 mL, 11 Refills, Maintenance, 06/18/20 9:36:00 EDT, Solution, [facility] 1967, 3 mL Neb 4 times a day,PRN:shortness of breath, 161, cm, 06/18/20 9:18:00 EDT, Height, 106, kg, 09/11/18 13:37... Start Date: 06/18/20 Status: Ordered Apri 0.15 mg-0.03 mg oral tablet 1 tablet, By Mouth, Daily, start first tablet today, # 1 pack/packet, 3 Refills, Maintenance, 09/10/20 10:08:00 EDT, [facility] 1966, Partial [...] 3 Refills, Maintenance, 12/24/19 13:41:00 EDT, ECCapsule, [facility] 1967, 161, cm, 06/12/19 8:56:00 [...] tablet, 11 Refills, Maintenance, 02/10/20 14:25:00 EST, [facility], 161, c... Start Date: [...] [facility], 161, cm, :18:00 EDT, [...]
--- OUTSIDE RECORDS SUMMARY | 2024-02-22 11:42 | XMS_ITS | Continuity of Care Document ---
Author Organization [facility] Address [address] [place] [address]- Care Team Providers Care Color Repairer Name Role Phone Al DIEGO, Nanci Segovia Primary Care Physician Encounter [facility] Date(s): 09/13/23 - 10/13/23 [facility] [address] [place] [address]- Allergies, Adverse Reactions, Alerts Substance Reaction Severity [...] Vaccine 11/21/89 Recor ded 1Result Comment: [facility]# [id number] PT. TOLERATED INJ. WITHOUT COMPLICATIONS....CO 2Result Comment: [facility]# [id number] PT. TOLERATED INJ. WITHOUT COMPLICATIONS...CO 3Result Comment: [04/06/2016] pt. tolerated inj. without complications...CO 4Result Comment: [04/14/2015] Measles mumps rubella titer Medications albuterol 0.083% inhalation solution 3 mL = 2.5 mg, Inhalation, Every 6 hours, PRN for wheezing, # 100 each, 5 Refills, Maintenance, 06/19/22 15:15:00 EDT, Solution, [facility]/pharmacy #[id number], replaces previous Rx for albuterol-ipatropium solution, 163, cm, 05/01/22 14:15:00 EST, Height, 128.2,... Start Date: 06/19/22 Status: Ordered Dexilant 60 mg oral delayed release capsule See Instructions, Take 1 capsule by mouth once daily, # 90 capsule, 0 Refills, 03/14/22 14:26:00 EST, [facility], 163, cm, 02/27/22 9:06:00 EST, [...] tablet, 11 Refills, Maintenance, 08/18/21 16:40:00EDT, Tablet, [facility], Partial fill upon [...] 03/12/23 11:30:00 EST, Route to Pharmacy Electronically, [id number], [facility]/pharmacy #1130, 163, cm, 03/02/23 13:11:00 EST, Height, 128.2, kg, 02/05/22 1... 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, 08/30/18 17:26:09 EDT, Compound Start Date: 08/30/18 Status: Ordered norethindrone 0.35 mg oral tablet 1 tablet, By Mouth, Daily, # 84 tablet, 5 Refills, Maintenance, 08/16/22 9:41:00 EDT, [facility], 163, cm, 05/01/22 14:15:00 EST, Height, 128.2, kg, 02/05/22 12:22:00 EST, Dry Weight Start Date: 08/16/22 Status: Ordered ondansetron 4 mg oral tablet 1 tablet, By Mouth, Every 8 hours, PRN NEEDED FOR NAUSEA AND VOMITING FOR, # 15 tablet, 3 Refills, Maintenance, 09/14/23 16:11:00 EDT, [facility], 160, cm, 07/21/23 8:30:00 EDT, Height, 114, kg, 07/21/23 8:30:00 EDT, Dry Weight Start Date: 09/14/23 Stop Date: 09/19/23 Status: Ordered Multivitamins By Mouth, Daily, 0 Refills, Maintenance, 06/05/18 11:27:06 EST Start Date: 06/05/18 Status: Ordered Ventolin HFA 108 mcg/inh inhalation aerosol with adapter 2 puffs, Inhalation, Every 4 hours, PRN for wheezing, # 8 Gm, 5 Refills, Maintenance, 03/12/23 11:35:00 EST, Aerosol, [facility]/pharmacy #1130, Partial fill upon [...] Adela Marroquin Position: [facility] EPIC WILLOW ANALYST MD Member Role: [employer] EPIC WILLOW ANALYST Physician Address: Address: [address] [place] [address], [address] [facility] [place], [place] [address] Name: Nanci Melendez MD Position: [facility] Physician - Primary Care Member Role: PCP Address: Address: [address] [place] [address]- Name: Tammy Schuler Position: [facility] Outreach Member Role: Lifetime Consulting Physician Care Team Related Persons Name: SEAN RITCHIE Address: [address] Address: home [address] [place] [address] [place] Name: DERRELL RITCHIE Address: home [address] [facility] [address] [place] [address] Name: DERRELL RITCHIE Address: home [address] [facility] [address] [place] [address] Name: DERRELL RITCHIE Address: home [address] [facility] [address] [place] [address] Name: SHEBA CANO Address: home [address] [place] [address] Name: DAYANNA CANO Address: home [address] [place] [address]
--- OUTSIDE RECORDS SUMMARY | 2024-02-22 11:42 | XMS_ITS | Continuity of Care Document ---
Author Organization [facility] Address Unknown Care Team Providers Care Seasoning Sprayer Name Role Phone Nanci Melendez MD Primary Care Physician Encounter [facility] Date(s): 07/03/21 - 07/10/21 [facility] Attending Physician: Not on Staff, Attending MD [...] Virus Vaccine 11/21/89 Recor ded 1Result Comment: [facility]# [id number] PT. TOLERATED INJ. WITHOUT COMPLICATIONS....CO 2Result Comment: [facility]# [id number] PT. TOLERATED INJ. WITHOUT COMPLICATIONS...CO 3Result Comment: [...] Gm, 10 Refills, Maintenance, 06/07/20 14:34:00 EST, [facility], 50, INHALE 2 PUFFS BY MOUTH 4 TIMES DAILY NEEDED FORWHEEZING, 161, cm, 02/10/20 14:26:00 EST, Height, 1... Start Date: 06/07/20 Status: Ordered Albuterol (Eqv-ProAir HFA) 90 mcg/inh inhalation aerosol See Instructions, INHALE 2 PUFFS BY MOUTH 4 TIMES DAILY NEEDED FOR WHEEZING, # 9 Gm, 6 Refills, [facility], 25, INHALE 2 PUFFS BY MOUTH 4 TIMES DAILY NEEDED FOR WHEEZING, 162, cm, 05/03/21 9:55:00 EST, Height, 105.2, kg, 02/12/21 17:0... Start Date: 06/24/21 Status: Ordered albuterol 0.083% inhalation solution 3 mL = 2.5 mg, Inhalation, Every 6 hours, PRN for wheezing, # 100 each, 5 Refills, Maintenance, 06/24/21 12:33:00 EDT, Solution, [facility], replaces previous Rx for albuterol-ipatropium solution, 162, cm, 05/03/21 9:55:00 EST, Height, 105.... Start Date: 06/24/21 Status: Ordered Apri 0.15 mg-0.03 mg oral tablet 1 tablet, By Mouth, Daily, start first tablet today, # 1 pack/packet, 3 Refills, Maintenance, 12/09/20 13:48:00 EDT, [facility] 1967, Partial fill upon [...] 0 Refills, Maintenance, 02/11/21 12:37:00 EST, ECCapsule, [facility] 1967, 163, cm, 01/01/21 10:10:00 EDT, Height Start Date: 02/11/21 Status: Ordered Endometrin 100 mg vaginal insert = 100 mg, Vaginally, 3 times a day, to add on day of transfer, # 90 supp, 5 Refills, Maintenance, 04/28/21 9:20:00 EST, [facility], Partial fill upon [...] each, Refills 5, Route to Pharmacy Electronically, [id number], [facility] 1967, 163, cm, 01/01/21 10:10:00 EDT, Height Start Date: 01/28/21 Status: Ordered metFORMIN 500 mg oral tablet, extended release See Instructions, take 1 tablet po w/dinner x1 wk, then increase to 2 tablets x 1-2 wks, then increase to 3 tablets 1-2 wks,then 4 tabs with dinner every day., # 120 tablet, 11 Refills, Maintenance, 03/16/21 11:27:00 EST, [facility] 1967, 162, c... Start Date: [...] each, 11 Refills, Maintenance, 06/18/20 9:35:00 EDT, [facility] 1967, 161, cm, :18:00 EDT, Height, 106, kg, 09/11/18 13:37:00 EDT... Start Date: 06/18/20 Status: Ordered oxyCODONE 5 mg oral tablet 5 mg, 1, tablet, By Mouth, Every 6 hours, PRN, # 8 tablet, Refills 0, Tot. Refills 0, Maintenance, Pain , Mild, 01/18/21 9:22:00 EDT, Route to Pharmacy Electronically, [facility] 1967, Partial fill upon patient request if the prescription is for... Start Date: 01/18/21 Status: Ordered Multivitamins By Mouth, Daily, 0 Refills, Maintenance, 06/05/18 11:27:06 EST Start Date: 06/05/18 Status: Ordered progesterone 50 mg/mL intramuscular solution 100mg/ml 2 ml (sesame oil), Intramuscular, Daily, # 60 mL, 5 Refills, Maintenance, 06/27/21 16:29:00 EDT, [facility], Partial fill upon patient request if the prescription is for a schedule II opioid drug., 162, cm, 05/03/21 9:55:00 E... Start Date: 06/27/21 Status: Ordered Provera 10 mg oral tablet 10 mg, 1, tablet, By Mouth, Daily, # 10 tablet, Refills 0, Tot. Refills 0, Maintenance, 04/04/21 10:58:00 EST, Route to Pharmacy Electronically, [facility], Partial fill upon patient request [...] 01/18/21 9:22:00 EDT, Route to Pharmacy Electronically, [facility], Partial fill upon patient request if the... Start Date: 01/18/21 Status: Ordered Valium 5 mg oral tablet 5 mg, 1, tablet, By Mouth, Once, One tablet one hour prior to procedure, may repeat x 1 as needed for anxiety, # 2 tablet, Refills 0, Tot. Refills 0, Soft Stop, 06/04/21 13:10:00 EST, Route to Pharmacy Electronically, [facility] 1966, Partial fi... Start Date: 06/04/21 [...] patch, 5 Refills, Maintenance, 06/27/21 16:29:00 EDT, [facility], Partial fill upon [...]
--- OUTSIDE RECORDS SUMMARY | 2024-02-22 11:42 | XMS_ITS | Continuity of Care Document ---
Author Organization [facility] Address [address], [address] [address]- Care Team Providers Care Net Development Manager Name Role Phone Nanci Melendez MD Primary Care Physician [phone] [place] [facility] Date(s): 03/01/22 - 04/08/22 [facility] [address], [address] [place], [place] [address] Attending Physician: Not on Staff, Attending [...] ded 1Result Comment: [facility]# [id number] PT. TOLERATED INJ. WITHOUT COMPLICATIONS....CO 2Result Comment: [facility]# [id number] PT. TOLERATED INJ. WITHOUT COMPLICATIONS...CO 3Result Comment: [04/06/2016] pt. tolerated inj. without complications...CO 4Result Comment: [04/14/2015] Measles mumps rubella titer Medications acetaminophen 325 mg oral tablet 650 mg, By Mouth, Every 4 hours, PRN, not to exceed 4000 mg/day, # 60 tablet, Refills 0, Tot. Refills 0, Maintenance, Pain , Mild, 02/08/22 8:05:00 EST, [facility], Partial fill upon patient request if the... Start Date: 02/08/22 Status: Ordered Albuterol (Eqv-ProAir HFA) 90 mcg/inh inhalation aerosol See Instructions, INHALE 2 PUFFS BY MOUTH 4 TIMES DAILY NEEDED FOR WHEEZING, # 9 Gm, 6 Refills, 08/17/21 9:51:00 EDT, [facility], [facility], INHALE 2 PUFFS BY MOUTH 4 TIMES DAILY NEEDED FORWHEEZING, 162, cm, 08/03/21 16:59:00 EDT, Height, 1... Start Date: 08/17/21 Status: Ordered albuterol 0.083% inhalation solution 3 mL = 2.5 mg, Inhalation, Every 6 hours, PRN for wheezing, # 100 each, 5 Refills, Maintenance, 08/17/21 9:51:00 EDT, Solution, [facility], replaces previous Rx for albuterol-ipatropium [...] mL, 0 Refills, Maintenance, 03/17/22 15:45:00 EST, [facility], Partial fill upon patient request if the prescription is for a schedule II opioid drug., 163, cm, 03/17/22... Start Date: 03/17/22 Stop Date: 03/31/22 Status: Ordered Dexilant 60 mg oral delayed release capsule See Instructions, Take 1 capsule by mouth once daily, # 90 capsule, 0 Refills, 03/14/22 14:26:00 EST, [facility], 163, cm, 02/27/22 9:06:00 EST, Height, 128.2, kg, 02/05/22 12:22:00 EST, Dry Weight Start Date: 03/14/22 Status: Ordered Diflucan 150 mg oral tablet 1 tablet = 150 mg, By Mouth, Once, # 1 tablet, 0 Refills, Soft Stop, 03/01/22 15:59:00 EST, [facility]t,[facility], Partial fill upon patient request [...] tablet, 11 Refills, Maintenance, 08/18/21 16:40:00EDT, Tablet, [facility], Partial fill upon [...] 08/17/21 9:51:00 EDT, Route to Pharmacy Electronically, [id number], [facility], 162, cm, 08/03/21 16:59:00 EDT, Height, 110, kg, 08/03/21 1... Start Date: 08/17/21 Status: Ordered ibuprofen 800 mg oral tablet 800 mg, 1, tablet, By Mouth, Every 8 hours, PRN, not to exceed 3200 mg/day with food or milk, # 40 tablet, Refills 0, Tot. Refills 0, Maintenance, Pain , Moderate, 02/08/22 8:05:00 EST, Route to Pharmacy Electronically, [facility], Partial... Start Date: [...] Team Personnel Name: Nanci Melendez MD Position: [facility] Primary Care Physician Member Role: PCP Address: Address: [address] [place] [address]- Care Team Related Persons Name: SEAN RITCHIE Address: [id number] Address: home [address] [place] [address] [place] Name: DERRELL RITCHIE Address: home [address] [place] [address] Name: DERRELL RITCHIE Address: home [address] [facility] [address] [place] [address] Name: DERRELL RITCHIE Address: home [address] [address] Name: SHEBA CANO Address: home [address] [place] [address] Name: DAYANNA CANO Address: home [address] [place] [place] [address]
--- OUTSIDE RECORDS SUMMARY | 2024-02-22 11:42 | XMS_ITS | Continuity of Care Document ---
Author Organization [facility] Address [address] [place] [address]- Care Team Providers Care Mental Health Director Name Role Phone Nanci Melendez MD Primary Care Physician [phone] Encounter [facility] Date(s): 01/11/24 - 02/10/24 [facility] [address] [place], [place] [address] Allergies, Adverse Reactions, Alerts Substance Reaction Severity Status metoclopramide Not available Active Reglan EYE TWITCHING Active Other Environmental Allergy 1 Active 1Seasonal Allergies Immunizations Given and Recorded Vaccine Date Status Refusal Reason influenza virus vaccine, inactivated 01/18/22 Gio rded influenza virus vaccine, inactivated 1 04/06/16 Gi tad influenza virus vaccine, inactivated 12/09/14 Gio rded influenza virus vaccine, inactivated 02/12/13 Gio rded influenza virus vaccine, inactivated 01/05/12 Gio rded tetanus/diphtheria/pertussis, acel(Tdap) 12/06/21 Given tetanus/diphtheria/pertussis, acel(Tdap) 2 06/05/18 Given tetanus/diphtheria/pertussis, acel(Tdap) 07/10/07 Recorded Influenza Virus Vaccine (oldterm) 01/01/20 Recorde d pneumococcal 23-valent vaccine 3 06/05/18 Given pneumococcal 23-valent vaccine 04/25/17 Recorded hepatitis B adult vaccine 01/31/12 Recorded hepatitis B adult vaccine 09/06/11 Recorded hepatitis B adult vaccine 07/31/11 Recorded hepatitis B adult vaccine 01/08/11 Recorded Miscellaneous Vaccine 4 09/01/09 Recorded tetanus-diphtheria toxoids (Td) 07/10/07 Recorded Meningococcal Conjugate Vaccine 03/16/06 Recorded Measles/Mumps/Rubella Virus Vaccine 08/08/99 Recor ded Measles/Mumps/Rubella Virus Vaccine 11/21/89 Recor ded 1Result Comment: [04/06/2016] pt. tolerated inj. without complications...CO 2Result Comment: [facility]# [id number] PT. TOLERATED INJ. WITHOUT COMPLICATIONS....CO 3Result Comment: [facility]# [id number] PT. TOLERATED INJ. WITHOUT COMPLICATIONS...CO 4Result Comment: [04/14/2015] Measles mumps rubella titer Medications albuterol 0.083% inhalation solution 3 mL = 2.5 mg, Inhalation, Every 6 hours, PRN for wheezing, # 100 each, 5 Refills, Maintenance, 06/19/22 15:15:00 EDT, Solution, [facility]/pharmacy #1130, replaces previous Rx for albuterol-ipatropium solution, 163, cm, 05/01/22 14:15:00 EST, Height, 128.2,... Start Date: 06/19/22 Status: Ordered Breo Ellipta 200 mcg-25 mcg/inh inhalation powder 1 puffs, Inhalation, Daily, # 1 each, 6 Refills, Maintenance, 12/28/23 13:38:00 EDT, Powder, [facility], Partial fill upon patient request if the prescription is for a schedule II opioid drug., 1 puffs Inhalation Daily, 163, cm, 12/28/23 12:59... Start Date: 12/28/23 Status: Ordered Carafate 1 gm/10 ml oral suspension 1 Unknown, Oral, 0 Refill(s), Take 10 mL by mouth 4 times daily (before meals and nightly) for 30 days., 0 Refills, 11/07/23 20:00:00 EDT, Partial fill upon patient request if the prescription is fora schedule II opioid drug. Start Date: 11/07/23 Status: Ordered Contrave 8 mg-90 mg oral tablet, extended release See Instructions, 1 tab once daily x 1 week, then 1 tab twice daily in second week then 2 tabs qam,1 tab qhs for 1 week then 2 tabs bid, # 120 tablet, 5 Refills, Maintenance, 12/28/23 13:34:00 EDT, ER Tablet, [facility]/pharmacy #1130, Partial fill upon prabhu... 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, 08/30/18 17:26:09 EDT, Compound Start Date: 08/30/18 Status: Ordered norethindrone 0.35 mg oral tablet 1 tablet, By Mouth, Daily, # 84 tablet, 5 Refills, Maintenance, 08/16/22 9:41:00 EDT, [facility], 163, cm, 05/01/22 14:15:00 EST, Height, 128.2, kg, 02/05/22 12:22:00 EST, Dry Weight Start Date: 08/16/22 Status: Ordered ondansetron 4 mg oral tablet 1 tablet, By Mouth, Every 8 hours, PRN NEEDED FOR NAUSEA AND VOMITING FOR, # 15 tablet, 3 Refills, Maintenance, 09/14/23 16:11:00 EDT, [facility], 160, cm, 07/21/23 8:30:00 EDT, Height, 114, kg, 07/21/23 8:30:00 EDT, Dry Weight Start Date: 09/14/23 Stop Date: 09/19/23 Status: Ordered Multivitamins By Mouth, Daily, 0 Refills, Maintenance, 06/05/18 11:27:06 EST Start Date: 06/05/18 Status: Ordered Protonix 40 mg oral delayed release tablet 40 Unknown, Oral, 5 Refill(s), Take 1 Tablet by mouth 2 times daily (before meals) for 180 days., 0Refills, 11/20/23 20:00:00 EDT Start Date: 11/20/23 Status: Ordered sucralfate 1 gm/10 ml oral suspension TAKE 10 ML BY MOUTH 4 TIMES DAILY (BEFORE MEALS AND NIGHTLY) FOR 30 DAYS. Start Date: 12/28/23 Status: Ordered Ventolin HFA 108 mcg/inh inhalation aerosol with adapter 2 puffs, Inhalation, Every 4 hours, PRN for wheezing, # 8 Gm, 5 Refills, Maintenance, 12/13/23 12:46:00 EDT, Aerosol, [facility]/pharmacy #1130, Partial fill upon patient request if the prescription is for a schedule II opioid drug., 160, cm, 12/08/23 8:15:0... Start Date: 12/13/23 Status: Ordered Vitamin B12 0 Refills, Maintenance, [...] opioid drug. Start Date: 06/18/20 Status: Ordered Wixela Inhub 500 mcg-50 mcg inhalation powder 1 Doses, Inhalation, 2 times a day, RINSE MOUTH AFTER USE, # 60 each, 5 Refills, Maintenance, 01/09/24 15:51:00 EDT, [facility], 30, INHALE 1 DOSE BY MOUTH TWICE DAILY. RINSE MOUTH AFTER USE, 163, cm, 12/28/23 12:59:00 EDT, Height, 115, kg, 12/27... Start Date: 01/09/24 Status: Ordered Problem List Condition Confirmation Course [...] Personnel Name: Macario DIEGO, Adela Marroquin Position: [facility] ACCOUNT DEVELOPMENT ASSOCIATE MD Member Role: [employer] ACCOUNT DEVELOPMENT ASSOCIATE Physician Address: Address: [address] [place] [address], [facility] [address] [place] [address]- Name: Nanci Melendez MD Position: [facility] Physician - Primary Care Member Role: PCP Address: Address: [address] [place] [address]- Name: Tammy Schuler Position: [facility] Outreach Member Role: Lif[employer] Consulting Physician Care Team Related Persons Name: SEAN RITCHIE Address: [address] Address: home [address] [place] [address] [place] Name: DERRELL RITCHIE Address: home [address] [facility] [address] [place] [address] Name: DERRELL RITCHIE Address: home [address] [facility] [address] [place] [address] Name: DERRELL RITCHIE Address: home [address] [address] Name: SHEBA CANO Address: [address] [place] [address] Name: DAYANNA CANO Address: home [address] [place] [address]
--- OUTSIDE RECORDS SUMMARY | 2024-02-22 11:42 | XMS_ITS | Continuity of Care Document ---
Author Organization [facility] ter Address [address] [place] [id number]- Care Team Providers Care Flexboard Operator Name Role Phone Al DIEGO, Nanci Segovia Primary Care Physician Encounter [facility] Date(s): 02/09/22 - 10/10/[address] [address]- Discharge Disposition: A-D/C Home Attending Physician: Adela Sorto MD Admitting Physician: [...] Virus Vaccine 11/21/89 Recor ded 1Result Comment: [facility]# [id number] PT. TOLERATED INJ. WITHOUT COMPLICATIONS....CO 2Result Comment: [facility]# [id number] PT. TOLERATED INJ. WITHOUT COMPLICATIONS...CO 3Result Comment: [04/06/2016] pt. tolerated inj. without complications...CO 4Result Comment: [04/14/2015] Measles mumps rubella titer Medications albuterol 0.083% inhalation solution 3 mL = 2.5 mg, Inhalation, Every 6 hours, PRN for wheezing, # 100 each, 5 Refills, Maintenance, 06/19/22 15:15:00 EDT, Solution, [facility]/pharmacy #[id number], replaces previous Rx for albuterol-ipatropium solution, 163, cm, 05/01/22 14:15:00 EST, Height, 128.2,... Start Date: 06/19/22 Status: Ordered Dexilant 60 mg oral delayed release capsule See Instructions, Take 1 capsule by mouth once daily, # 90 capsule, 0 Refills, 03/14/22 14:26:00 EST, [facility], 163, cm, 02/27/22 9:06:00 EST, [...] tablet, 11 Refills, Maintenance, 08/18/21 16:40:00EDT, Tablet, [facility], Partial fill upon patient request [...] 03/12/23 11:30:00 EST, Route to Pharmacy Electronically, [id number], [facility]/pharmacy #[id number], 163, cm, 03/02/23 13:11:00 EST, Height, 128.2, kg, 02/05/22 1... 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, 08/30/18 17:26:09 EDT, Compound Start Date: 08/30/18 Status: Ordered norethindrone 0.35 mg oral tablet 1 tablet, By Mouth, Daily, # 84 tablet, 5 Refills, Maintenance, 08/16/22 9:41:00 EDT, [id number], 163, cm, 05/01/22 14:15:00 EST, Height, 128.2, kg, 02/05/22 12:22:00 EST, Dry Weight Start Date: 08/16/22 Status: Ordered ondansetron 4 mg oral tablet 1 tablet, By Mouth, Every 8 hours, PRN NEEDED FOR NAUSEA AND VOMITING FOR, # 15 tablet, 3 Refills, Maintenance, 09/14/23 16:11:00 EDT, [id number], 160, cm, 07/21/23 8:30:00 EDT, Height, 114, [...] Personnel Name: Macario DIEGO, Adela Marroquin Position: [facility] ETL APPLICATION DEVELOPER MD Member Role: [employer] ETL APPLICATION DEVELOPER Physician Address: Address: [address] [place] [address], [address] [facility] [address]- Name: Nanci Melendez MD Position: [facility] Physician - Primary Care Member Role: PCP Address: Address: [address] [place] [id number]- Name: Tammy Schuler Position: [facility] Outreach Member Role: Lifetime Consulting Physician Care Team Related Persons Name: SEAN RITCHIE Address: Address: [address] [place] [address] Name: DERRELL RITCHIE Address: home [address] [place] [address] Name: DERRELL RITCHIE Address: home [address] [place] [address] Name: DERRELL RITCHIE Address: home [address] [place] [address] Name: SHEBA CANO Address: home [address] [place] [address] Name: DAYANNA CANO Address: home [address] [place] [address]
--- OUTSIDE RECORDS SUMMARY | 2024-02-22 11:42 | XMS_ITS | Continuity of Care Document ---
Author Organization [facility] Address [address] [place] [address]- Care Team Providers Care General Manager Farm Name Role Phone Al DIEGO, Nanci Segovia Primary Care Physician Encounter [facility] Date(s): 09/15/20 - 10/15/20 [facility] [address] [place] [id number] Attending Physician: Admmiriam, Marely Admitting Physician: Admtr, Ar8 Referring Physician: Admtr, Ar8 Allergies, Adverse Reactions, Alerts Substance Reaction Severity [...] ded 1Result Comment: [facility]# [id number] PT. TOLERATED INJ. WITHOUT COMPLICATIONS....CO 2Result Comment: [facility]# [id number] PT. TOLERATED INJ. WITHOUT COMPLICATIONS...CO 3Result Comment: [04/06/2016] pt. tolerated inj. without complications...CO 4Result Comment: [04/14/2015] Measles mumps rubella titer Medications Advair Diskus 500 mcg-50 mcg inhalation powder 1, puffs, Inhalation, 2 times a day, # 1 each, Refills 12, Tot. Refills 12, Maintenance, 12/24/19 13:40:00 EDT, Route to Pharmacy Electronically, [id number], [facility], 161, cm, 06/12/19 8:56:00 EDT, Height, 106,... Start Date: 12/24/19 Status: Ordered Albuterol (Eqv-ProAir HFA) 90 mcg/inh inhalation aerosol 2 puffs, Inhalation, 4 times a day, PRN NEEDED FOR WHEEZING, # 18 Gm, 10 Refills, Maintenance, 06/07/20 14:34:00 EST, [facility], 50, INHALE 2 PUFFS BY MOUTH 4 TIMES DAILY NEEDED FORWHEEZING, 161, cm, 02/10/20 14:26:00 EST, Height, 1... Start Date: 06/07/20 Status: Ordered albuterol-ipratropium 3 mg-0.5 mg/3 ml inhalation solution 3 mL, Neb, 4 times a day, PRN shortness of breath, # 180 mL, 11 Refills, Maintenance, 06/18/20 9:36:00 EDT, Solution, [facility], 3 mL Neb 4 times a day,PRN:shortness of breath, 161, cm, 06/18/20 9:18:00 EDT, Height, 106, kg, 09/11/18 13:37... Start Date: 06/18/20 Status: Ordered Apri 0.15 mg-0.03 mg oral tablet 1 tablet, By Mouth, Daily, start first tablet today, # 1 pack/packet, 3 Refills, Maintenance, 09/10/20 10:08:00 EDT, [facility], Partial fill upon [...] 3 Refills, Maintenance, 12/24/19 13:41:00 EDT, ECCapsule, [facility], 161, cm, 06/12/19 [...] tablet, 11 Refills, Maintenance, 02/10/20 14:25:00 EST, [facility], 161, c... Start [...] each, 11 Refills, Maintenance, 06/18/20 9:35:00 EDT, [facility], 161, cm, 219:18:00 [...]
--- OUTSIDE RECORDS SUMMARY | 2024-02-22 11:42 | XMS_ITS | Continuity of Care Document ---
Author Organization [facility] ter Address [address] [place] [id number] Care Team Providers Care Sales Service Executive Name Role Phone Nanci Melendez MD Primary Care Physician [phone] Encounter [facility] [place] Date(s): 02/05/22 - 02/08/[address] [address]- Discharge Disposition: A-D/C Home Attending Physician: Adela Sorto MD Admitting Physician: Adela Sorto MD Referring Physician: Estela [...] Comment: [facility] [place]# [id number] PT. TOLERATED INJ. WITHOUT COMPLICATIONS....CO 2Result Comment: [facility] [place]# [id number] PT. TOLERATED INJ. WITHOUT COMPLICATIONS...CO 3Result Comment: [04/06/2016] pt. tolerated inj. without complications...CO 4Result Comment: [04/14/2015] Measles mumps rubella titer Medications acetaminophen 325 mg oral tablet 650 mg, By Mouth, Every 4 hours, PRN, not to exceed 4000 mg/day, # 60 tablet, Refills 0, Tot. Refills 0, Maintenance, Pain , Mild, 02/08/22 8:05:00 EST, [facility] Partial fill upon patient request if the... Start Date: 02/08/22 Status: Ordered Albuterol (Eqv-ProAir HFA) 90 mcg/inh inhalation aerosol See Instructions, INHALE 2 PUFFS BY MOUTH 4 TIMES DAILY NEEDED FOR WHEEZING, # 9 Gm, 6 Refills, 08/17/21 9:51:00 EDT, [facility], 25, INHALE 2 PUFFS BY MOUTH 4 TIMES DAILY NEEDED FORWHEEZING, 162, cm, 08/03/21 16:59:00 EDT, Height, 1... Start Date: 08/17/21 Status: Ordered albuterol 0.083% inhalation solution 3 mL = 2.5 mg, Inhalation, Every 6 hours, PRN for wheezing, # 100 each, 5 Refills, Maintenance, 08/17/21 9:51:00 EDT, [facility], replaces previous Rx for albuterol-ipatropium [...] once daily, # 90 capsule, 1 Refills, [facility] 1967, 162, cm, 09/16/21 15:34:00 [...] tablet, 11 Refills, Maintenance, 08/18/21 16:40:00EDT, Tablet, [facility] 1967, Partial fill upon patient [...] 08/17/21 9:51:00 EDT, Route to Pharmacy Electronically, [id number], [facility] 1967, 162, cm, 08/03/21 16:59:00 EDT, Height, 110, kg, 08/03/21 1... Start Date: 08/17/21 Status: Ordered ibuprofen 800 mg oral tablet 800 mg, 1, tablet, By Mouth, Every 8 hours, PRN, not to exceed 3200 mg/day with food or milk, # 40 tablet, Refills 0, Tot. Refills 0, Maintenance, Pain , Moderate, 02/08/22 8:05:00 EST, Route to Pharmacy Electronically, [facility] 1967, Partial... Start Date: 02/08/22 [...] oldest [Reference Range]: 1 2 3 Height 163 cm (02/08/22 4:00 AM) 163 cm (02/08/22 12:00 AM) 163 cm (02/07/22 10:00 PM) Weight 128.2 kg (02/05/22 12:22 PM) 122.7 kg (02/05/22 8:25 AM) Oxygen Saturation [94-100 %] 100 % (02/08/22 4:00 PM) 100 % (02/08/22 12:00 PM) 100 % (02/08/22 8:00 AM) Pulse Rate [55-90 bpm] 89 bpm (02/08/22 4:00 PM) 80 bpm (02/08/22 12:00 PM) 89 bpm (02/08/22 8:00 AM) Body Mass Index [18.5-24.99 kg/m2] 48.25 kg/m2 *>HHI* (02/05/22 12:22 PM) 46.18 kg/m2 *>HHI* (02/05/22 8:25 AM) Blood Pressure [90-138/55-84 mm Hg] 120/68mm Hg (02/08/22 4:00 PM) 119/76mm Hg (02/08/22 12:00 PM) 128/80mm Hg (02/08/22 8:00 AM) Respiratory Rate [16-30 br/min] 18 br/min (02/08/22 4:00 PM) 18 br/min (02/08/22 12:00 PM) 18 br/min (02/08/22 8:00 AM) Temperature [96.8-100.4 DegF] 98.2 DegF (02/08/22 4:00 PM) 98.1 DegF (02/08/22 12:00 PM) 97.9 DegF (02/08/22 8:00 AM) Mode of Delivery (Oxygen) Room air (02/08/22 4:00 PM) Room air (02/08/22 12:00 PM) Room air (02/08/22 8:00 AM) Blood pressure sites Arm, right (02/08/22 4:00 PM) Arm, right (02/08/22 12:00 PM) Arm, right (02/08/22 8:00 AM) Temperature Route Oral (02/08/22 4:00 PM) Oral (02/08/22 12:00 PM) Oral (02/08/22 8:00 AM) Dry Weight 128.2 kg (02/05/22 12:22 PM) 122.7 kg (02/05/22 8:25 AM) Weight Obtained Via Standing scale (02/05/22 12:22 PM) Patient/family stated (02/05/22 8:25 AM) Dry Weight Obtained Via Standing scale (02/05/22 12:22 PM) Patient/family stated (02/05/22 8:25 AM) Social History Social History Type Response Smoking Status Never smoker; Tobacc o user in household: No entered on: 07/02/15 Sex History and physical note * Silvia Woodward MD: PERFORM Event Display: History and Physical Hospital Authored Date: [id number] Patient: ??RAFA RITCHIE ? Age:??31 Years?Sex:??Female?:??1990?? OB Reason for Admission OB Reason for Admission Reason for admission: Induction of labor Reason for Induction: Pre-eclampsia LMP/EGA/BOB Gestational Age (EGA) and BOB? * Note: EGA calculated as of 02/05/2022 ?? BOB:??02/26/2022?EGA*:??37 weeks ? History?(0,0,1,0)?Method:??Assisted Reproductive Technology??(06/10/2021) History of Present Illness Patient??is a 31yo?? at 37w0d presenting for??IOL for Pre-Eclampsia without??severe features. ??complicated by GDMA2 on??metformin and??IVF . ?? Today she denies any??consistent painful contractions, though she has been feeling cramping withintermittent contractions, LOF, vaginal bleeding or decreased movement. Mild headache today that feels like pressure headaches she often gets that resolve with tylenol and hydration. ?? In reviewing her care: ruled in for gHTN during recent admission at 35+6??for BP monitoring after single severe BP on wrist cuff at home. Elevated TPCR on 02/02 ruled in for PreE. Also with headache and shortness of breath during that admission. Patient with known fatty liver, asthma, ?? PMH, PSH, Meds, Allergies, Social History reviewed and updated in the medical record as appropriate. Plan reviewed and updated in the medical record as appropriate. Review of Systems Constitutional:??No fever, chills or weakness?? HEENT:??No vision changes. No congestion Skin:??No rash or itching Cardiovascular:??No chest pain or palpitations Respiratory:??No shortness of breath Gastrointestinal:??No nausea, vomiting, diarrhea, or abdominal pain Genitourinary:??No burning, urinary frequency or incontinence Gynecologic:??No concerning vaginal discharge or itching Neurologic:??No??dizziness, syncope?? Psychiatric:??No depression or anxiety Physical Exam Vitals & Measurements T:??98.4?F ?? GA:??90?? RR:??18?? BP:??124/80?? SpO2:??97%?? HT:??163??cm?? WT:??122.7??kg?? BMI:??46.18?? Constitutional:??No acute distress, resting comfortably. Respiratory:??Normal work of breathing. Lungs clear to auscultation bilaterally. Cardiovascular:??Regular rate and rhythm, no murmurs.? Abdomen/GI:??Gravid uterus. Soft, nontender. Extremities:??No calf tenderness or edema. Skin:??No rash or jaundice. Neurological/Psychiatric:??Mood and affect congruent and stable. OB Assessment Baby A Baseline:130 Baseline Description:Normal, 110-160 bpm Baseline Variability:Moderate variability Accelerations:Present Deceleration:None Activity:Present Cervical Estimated Weight:2900 gm Membrane Status:Intact Uterine Monitor Mode, UterineExternal Cervical Cervical Dilatation2 cm Cervical Snyymsqies44% Station-2 Assessment/Plan Assessment:??Patient is a 31yo at 37w0d presenting for IOL for Pre- Eclampsia without severefeatures. complicated by GDMA2 on metformin and IVF . Baby is in cephalic position by bedside ultrasound on admission. ?? Miso/carrasquillo induction. Cat I tracing. GBS+, plan for PCN. ?? Encounter for induction of labor (Z34.90):? - Admit to Labor and Delivery - CBC, T+S, IV access - Induction: miso/carrasquillo - EFM and toco - Labor coping: plan for epidural - PPH risk level: Medium (BMI) - Reassess in 2hr or PRN ?? Positive GBS test (B95.1):? - PCN (5mU IV + 3mU IV q4h) ?? Preeclampsia (O14.90):??TPCR 0.33 on 02/02 - BPs q2, Is/Os q4 - Continuous monitoring - HELLP labs pending (CBC, Cr, AST, ALT) ?? Headache (R51.9):? - Tylenol 975 - PO hydration - Monitor for resolution of symptoms ?? Gestational diabetes (O24.415):??GDMA2 on metformin 1000mg daily EFW 01/30 - 30%tile - POC on admission: pending - Diabetic diet ?? Asthma (J45.909):??Home advair, albuterol PRN - Ventolin inhaler at bedside - Advair daily - Avoid hemabate ?? Fatty liver (K76.0):??Baseline AST/ALT normal ?? GERD (gastroesophageal reflux disease) (K21.9):??Longstanding, on PPI+H2 padilla - Famotidine PRN while inpatient ?? Gastroparesis (K31.84):??Has implantable gastric stimulator in place, doing well ?? is the result of in vitro fertilization (IVF) (Z31.83):??. ?? Severe obesity (E66.01):??BMI 47, EFW 2900 - Hover mat for epidural ?? Patient and plan of care discussed with Dr. Lezama OB History History?(0,0,1,0)? # 1 ?Baby 1 ?Outcome Date:??01/2021 ?Outcome or Result:??Spontaneous ?Gest Age:??6 weeks ? Outcome:? Sex:??-- ?Comment:??IVF (fresh transfer). Did not require a D&C Labs Labs Labs & Tests Antibody Screen: Negative (12/06/21) Blood Type: O Positive (12/06/21) Chlamydia Trachomatis Amplified Probe: NEGATIVE (08/18/21) Creatinine-Blood: 0.7 mg/dL (02/02/22) Down Syndrome Age Risk FTS: Age Risk: (08/10/21) Down Syndrome Scrn Risk FTS: Screening Risk: (08/10/21) Glucose 50 Gm, +60 Minutes:??156 mg/dL??High (12/06/21) Hct: 42.9 % (02/02/22) Hemoglobinopathy Interpretation: Normal hemoglobins. (08/18/21) Hepatitis B Surface Antigen: NEGATIVE (08/18/21) Hepatitis C Ab: NEGATIVE (07/18/21) Hgb: 13.4 Gm/dL (02/02/22) HIV 4th Generation Ab-Ag Result: NEGATIVE (12/06/21) RPR Titer Result: NOT INDICATED (12/06/21) Rubella IgG Ab: POSITIVE (08/18/21) Syphilis Screen by REINALDO: NEGATIVE (12/06/21) Trisomy 18 Scrn Risk FTS: Screening Risk: (08/10/21) Urine Culture: Urine Culture (12/19/21) Varicella IgG Ab: POSITIVE (07/18/21) Transcribed Labs Blood Type-Transcribed Result: O (08/02/21) Chlamydia-Transcribed Result: Negative (06/07/21) Hep B Surface Antigen-Transcribed Result: Negative (06/07/21) HIV-Transcribed Result: Negative (06/07/21) Rh-Transcribed Result: Positive (08/02/21) Rubella IgG -Transcribed Result: Positive (06/07/21) Syphilis screen-Transcribed Result: Negative (06/07/21) Problem List Active Active Problem List Asthma: (Medical) Asthma: (Medical) Fatty liver: (Medical) Gastroparesis: (Medical) Gastroparesis: (Medical) GERD (gastroesophageal reflux disease): (Medical) Gestational diabetes: (Medical) Headache: (Medical) Palpitations: (Medical) PCOS (polycystic ovarian syndrome): (Medical) is the result of in vitro fertilization (IVF): (Medical) : (Obstetric) (06/10/21) Severe obesity: (Medical) Sleep apnea: (Medical) Procedure/Surgical History Implantation of gastric pacemaker: 08/2016 Laparoscopic cholecystectomy: 04/21/16 Home Medications Albuterol: See Instructions, INHALE 2 PUFFS BY MOUTH 4 TIMES DAILY NEEDED FOR WHEEZING Albuterol: 2.5 mg = 3 mL, Inhalation, Every 6 hours, PRN (for wheezing) Cholecalciferol: 1,000 International_Units = 1 tablet, By Mouth, Daily Cyanocobalamin dexlansoprazole: See Instructions, Take 1 capsule by mouth once daily DiphenhydrAMINE: See Instructions, 2 capsule By Mouth PRN Durable Medical Equipment: See Instructions, dx: J45.909use dailylifetime use Durable Medical Equipment: See Instructions, To test BS 4 x day. Durable Medical Equipment: See Instructions, To test blood sugar 4 x day.1 Bottle= 100 test strips Durable Medical Equipment: See Instructions, To test blood sugar 4 x day.1 packet =100 lancets Famotidine: See Instructions, OTC Ferrous Sulfate: 325 mg = 1 tablet, By Mouth, 2 times a day Fluticasone Nasal: 1 sprays, Daily Fluticasone-Salmeterol: 1 Doses, Inhalation, 2 times a day Magnesium Oxide: 500 mg = 2 tablet, By Mouth, Daily Metformin: See Instructions, take 1 tablet by moutrh daily Multivitamin, : By Mouth, Daily Allergies Other Environmental Allergy Reglan??(EYE TWITCHING) Social History Alcohol Use: Past., 07/18/2021 Employment/School Status: Employed. 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 Other: Has been doing more walking., 06/12/2019 Home/Environment Living situation: Home/Independent. Lives with: Spouse. Spouse Name: Derrlel., 08/18/2021 Nutrition/Health Diet: Regular., 07/18/2021 Sexual Sexually involved in last 6 months: Yes. Gender identity: Identifies as female., 06/07/2018 Substance Abuse Use: Never., 06/07/2018 Tobacco Never smoker, Tobacco user in household: No., 07/02/2015 Family History Mother: Rheumatoid arthritis Sister: Uterine cancer ?15-JAN-2016 02:49:48<$> Plan OB Plan Circumcision Plan: None (02/05/22) Contraceptives: None (02/05/22) Feeding Plan: Breast milk (02/05/22) Labor Coping Mechanisms: Epidural (02/05/22) Patient Requests: Baby boy! IVF (02/05/22) Lab Results Test Name Test Result Date/TimeWBC 8.3 k/mm3 02/02/2022 11:56 EDT Hgb 13.4 Gm/dL 02/02/2022 11:56 EDT Hct 42.9 % 02/02/2022 11:56 EDT Platelet Count 260 k/mm3 02/02/2022 11:56 EDT Creatinine-Blood 0.7 mg/dL 02/02/2022 11:56 EDT AST (SGOT) 26 units/L 02/02/2022 11:56 EDT ALT (SGPT) 20 units/L 02/02/2022 11:56 EDT TP/Cr Ratio 0.33 (High) 02/02/2022 11:57 EDT Ultrasound Result type:?PDC Follow up Growth Result date:?January 30, 2022 9:57 EDT [1] BIOMETRY: ?BPD: ?88.1 ??mm ? G.Age: ?? 35w 4d ?44 ??% ??HC: ?319.8 ??mm ? G.Age: ?? 36w 0d ?19 ??% ??AC: ?314.4 ??mm ? G.Age: ?? 35w 3d ?38 ??% ??FL: ? 68.1 ??mm ? G.Age: ?? 35w 0d ?18 ??% ?CI: ? 76.21 ??% ? 70 - 86 ??FL/HC: ? 21.3 ??% ? 20.1 - 22.1 ??HC/AC: ? 1.02 ?0.93 - 1.11 ??FL/BPD: ?77.3 ??% ? 71 - 87 ??FL/AC: ? 21.7 ??% ? 20 - 24 ?Est. FW: ?2659 ?? gm ?? 5 lb 14 oz ? 30 ??% [2] ?? COMMENTS: ?The estimated weight is within normal limits. ??BPP=8/8 [3] [1]??PDC Follow up Growth; Meredith Hampton MD 01/30/2022 09:57 EDT [2]??PDC Follow up Growth; Meredith Hampton MD 01/30/2022 09:57 EDT [3]??PDC Follow up Growth; Meredith Hampton MD 01/30/2022 09:57 EDT * Vita Lezama DO: PERFORM Event Display: History and Physical Hospital Authored Date: [id number] Attending Attestation: I have seen and evaluated this patient.?? I have discussed the case and its management with the resident and agree with the findings and plan as documented in the resident???s note. Hospital Progress note * Ninfa Vasques RN: PERFORM, SIGN, VERIFY Event Display: Progress Note Hospital Authored Date: Patient: RAFA RITCHIE Age: 31 years Sex: Female : 1990 Associated Diagnoses: None Author: Ninfa Vasques RN Findings Mother will be discharged but staying with baby who is under phototherapy double lights. Reviewed discharge information, verbalized understanding. Patient bonding and handling infant well. * Minnie Weston RN: PERFORM, SIGN, VERIFY Event Display: Progress Note Hospital Authored Date: Patient: RAFA RITCHIE Age: 31 years Sex: Female : 1990 Associated Diagnoses: None Author: Minnie Weston RN Findings Patient alert and oriented times three, no sob nor resp distress noted, fundus firm, down with mildlochia. Abdomen non distended, + bowel sounds all 4 quadrants Patient denies passing clot or saturating the pad / hour. Patient reports moderate pain, pain Meds administered accordingly, bonding withbaby appropriately, safety precaution in place, will continue to monitor. Problem Related to Alteration in Comfort : Alteration in Comfort/new 02/07/2022 23:00 EST Alteration in Comfort Related to Other: s/p vag delivery Goals & Outcomes: Comfort Pt will report acceptable level of comfort & pain control, Pt will state importance of adhering to pain strategy regime, Pt will demonstrate necessary skills to manage pain, Non-verbal indicators will indicate comfort/pain control Interventions Implemented: Comfort Assess aggravating factors & prevent them accordingly Goals/Interventions, Comfort Yes Comfort, Problem Start 02/06/2022 12:00 Reviewed plan with, Comfort Patient Patient Progression, Comfort Pt progressing according to plan Comfort, Problem Ongoing Yes . * Mireille Alexandra RN: PERFORM, SIGN, VERIFY Event Display: Progress Note Hospital Authored Date: [id number] Patient: RAFA RITCHIE Age: 31 years Sex: Female : 1990 Associated Diagnoses: None Author: Ibrahima RECINOS, Mireille Findings Problem Related to Alteration in Comfort : Alteration in Comfort/new 02/07/2022 8:00 EST Alteration in Comfort Related to Other: s/p vag delivery Goals & Outcomes: Comfort Pt will report acceptable level of comfort & pain control, Pt will state importance of adhering to pain strategy regime, Pt will demonstrate necessary skills to manage pain, Non-verbal indicators will indicate comfort/pain control Interventions Implemented: Comfort Assess pain using appropriate pain scale/tools, Assess aggravating factors & prevent them accordingly, Assess alleviating factors & promote them accordingly Goals/Interventions, Comfort Yes Comfort, Problem Start 02/06/2022 12:00 Reviewed plan with, Comfort Patient Patient Progression, Comfort Pt progressing according to plan Comfort, Problem Ongoing Yes . Pt doing well, VSS. Alert and oriented x3. OOB ad mukul. Pain controlled with Tylenol/Motrin. Pt voiding and flatus. Lung sounds clear bilaterally. Abdomen soft and non-distended. Uterus firm and belowumbilicus. Light amount of lochia, denies passing any clots or saturating a pad in an hour. Bowel sounds present. Patient attempting , assisted and education on utilization of breast pump; also formula feeding . FOB at bedside. Continued to reinforce skin to skin. Bonding with infant. Call truong within reach. Will continue to monitor. Note * Alexis RECINOS, Le Melendez: PERFORM, MODIFY Event Display: Care Team Progress Note Authored Date: [id number] Patient: ??RAFA RITCHIE ? Age:??31 Years?Sex:??Female?:??1990?? Subjective Day 2 follow up for this 31 yo mom. Baby boy under phototherapy in mothers' room, recently fed 22 ml formula via bottle. Slow flow nipples recommended,reinforced supplementation volume guidelines. Parents are using paced bottle feeding instructions. Pt with + areolar edema, RPS taught-recommended before latching baby or pumping. Pt has not latched baby today- has been pumping approximately 1 ml colostrum, and then feeding formula. unable to evaluate latch due to baby just fed. Assessment/Plan Basic education discussed with??mother and partnerincluding:? Frequent breast stimulation for initiation and maintenance of milk supply Coming to full milk volume in first 14 days Hand expression after RPS done! When to use a breast pump-has Spectra S1 pump for home use. Rented hospital grade Symphony pump x 1 month due to need for pumping/37 1/7 week late baby. Pt to be??discharged, baby boarder baby with phototherapy. ?? Nipple shield given with instructions to try with next feeding-pt taught how to apply and clean. will follow up on 02/09/22 to check latch progress with nipple shield. Please evaluate latch with feeding assessment prior to discharge home. Check weight and diaper counts. ?? Consultation reference guide given to mother with contact information for services and ongoing support as needed.?? OB Summary : 2 Parity: 1 . Weight: 2.6 kg Date, Time of : 02/06/22 07:56:00 EGA at Documented Date, Time: 37W 1D Gender: Male Weight at Delivery Delivery Complications: Preeclampsia Delivery Type: Vaginal, vacuum assist OB History History?(1,0,1,1)? # 1 ?Baby 1 ?Outcome Date:??01/2021 ?Outcome or Result:??Spontaneous ?Gest Age:??6 weeks ? Outcome:? Sex:??-- ?Comment:??IVF (fresh transfer). Did not require a D&C ?? # 2 ?Baby 1 ?Outcome Date:??02/06/2022?Outcome or Result:??Vaginal, vacuum assist ?Gest Age:??37 weeks 1 days ? Outcome:??Live ? Sex:??Male?Wt:?2600 g Active Problem List Active Problem List Asthma: (Medical) Asthma: (Medical) Fatty liver: (Medical) Gastroparesis: (Medical) Gastroparesis: (Medical) GERD (gastroesophageal reflux disease): (Medical) Gestational diabetes: (Medical) Headache: (Medical) Palpitations: (Medical) PCOS (polycystic ovarian syndrome): (Medical) Preeclampsia: (Nursing) Problem added by Discern Expert (02/06/22) is the result of in vitro fertilization (IVF): (Medical) Severe obesity: (Medical) Sleep apnea: (Medical) Home Medications Acetaminophen: 650 mg, By Mouth, Every 4 hours, PRN (Pain , Mild), not to exceed 4000 mg/day Albuterol: See Instructions, INHALE 2 PUFFS BY MOUTH 4 TIMES DAILY NEEDED FOR WHEEZING Albuterol: 2.5 mg = 3 mL, Inhalation, Every 6 hours, PRN (for wheezing) Cholecalciferol: 1,000 International_Units = 1 tablet, By Mouth, Daily Cyanocobalamin dexlansoprazole: See Instructions, Take 1 capsule by mouth once daily DiphenhydrAMINE: See Instructions, 2 capsule By Mouth PRN Durable Medical Equipment: See Instructions, dx: J45.909use dailylifetime use Famotidine: See Instructions, OTC Ferrous Sulfate: 325 mg = 1 tablet, By Mouth, 2 times a day Fluticasone Nasal: 1 sprays, Daily Fluticasone-Salmeterol: 1 Doses, Inhalation, 2 times a day Ibuprofen: 800 mg = 1 tablet, By Mouth, Every 8 hours, PRN (Pain , Moderate), not to exceed 3200 mg/daywith food or milk Magnesium Oxide: 500 mg = 2 tablet, By Mouth, Daily Multivitamin, : By Mouth, Daily Medications Medications (8) Active SCHEDULED: (3) Fluticasone-Salmeterol 230 mcg-21 mcg Inhaler (Advair 230 mcg-21 mcg Inhaler) ??2 puffs, Inhalation, 2 times a day Magnesium Oxide 400 mg Tablet (magnesium oxide 400 mg oral tablet) ??400 mg, By Mouth, Daily at bedtime Multivitamin Tablet ( Multivitamin Tablet) ??1 tablet, By Mouth, Daily CONTINUOUS: (0) PRN: (5) Acetaminophen 325 mg Tablet (Acetaminophen Tablet) ??650 mg, By Mouth, Every 4 hours Albuterol 90mcg/Inhalation Inhaler HFA (Ventolin 90 mcg Inhaler) ??180 mcg 2 puffs, Inhalation, Every 4 hours Docusate Sodium 100 mg Capsule (Docusate Sodium Capsule) ??100 mg 1 capsule, By Mouth, 2 times a day Famotidine 10 mg/mL Inj (Famotidine Inj) ??20 mg 2 mL, IV Push Slowly, Every 12 hours Ibuprofen 800 mg Tablet (Ibuprofen Tablet) ??800 mg, By Mouth, Every 8 hours * Ninfa Vasques RN: PERFORM Event Display: Discharge/Transfer Note Hospital Authored Date: [id number] Nursing Discharge Note Entered On: 02/08/2022 16:53 EST Performed On: 02/08/2022 16:53 EST by Ninfa Vasques RN Nursing Discharge Note 2 Discharge Time : 02/08/2022 14:30 EST Discharge Level of Care at Discharge : Home/Correction/Foster Care Patient Left Unit Via : Other: patient rooming in with baby Patient Accompanied Off Unit with : Other: patient rooming with baby DC Instructions Provided & Signed by Pt : Yes Patient Understands D/C Instructions : Yes Verbalized Understanding of D/C Plan By : Patient Patient Instructions Discharge Signed : Yes Did Pt have Specialty Bed or Wound Vac : No Ninfa Vasques RN - 02/08/2022 16:53 EST * Lucie Fox MD: PERFORM Event Display: Discharge/Transfer Note Hospital Authored Date: [id number] Patient: ??RAFA RITCHIE ? Age:??31 Years?Sex:??Female?:??1990?? Admit Date Admission Date: 02/05/2022 Discharge Date 02/08/2022 OB Reason for Admission OB Reason for Admission Reason for admission: Induction of labor Reason for Induction: Pre-eclampsia [place] [facility] Course Patient is a 31yo at 37w0d presenting for IOL for Pre-Eclampsia without severe features with elevated TpCr. complicated by GDMA2 on metformin and IVF . She underwent induction with misoprostol, Carrasquillo balloon, pitocin. Ultimately, she had vacuum assisted vaginal delivery due to need to shorten second stage due to decels with pushing. Delivery was uncomplicated, perineum intact.??She met milestones and was discharged PPD2. Objective/Physical Exam on Day of Discharge Vitals & Measurements T:??98.6?F ?? HR:??121(Monitored)?? GA:??85?? RR:??18?? BP:??117/67?? SpO2:??100%?? HT:??163??cm?? WT:??2.6??kg?? BMI:??48.25?Constitutional: Well-developed, well-nourished, no acute distress?Lungs: clear to auscultation bilaterally, unlabored breathing?Cardiovascular: Regular rate and rhythm. ?Abdomen/GI: soft, non-tender,non-distended, no guarding or rebound tenderness ?Fundus:??At umbilicus, firm, non-tender ?Gynecologic: Minimal blood on pad, minimal swelling ?Extremities: Equal bilaterally, no calf tenderness ?Skin: No rash or jaundice ?Neurological/Psychiatric: appropriate appearance, mood and affect Assessment/Plan/Discharge Diagnosis Assessment:??31yo G2 now P1 PPD2 s/p VAVD due to need to shorten second stage due to decels with pushing. Delivery was uncomplicated, perineum intact. ??team is following??to help withlatch. For preeclampsia, she is normotensive, symptomatic, enrolled in [employer]. She is meeting milestones. ?? Vacuum-assisted vaginal delivery (Z37.9):? Discharge Discharge teaching done Encouraged ambulation Encouraged following PPBC: this was an IVF ?? Preeclampsia (O14.90):? Strict return/call precautions??for signs/symptoms of preeclampsia Enrolled in [employer] 3d telehealth BP check ?? Gestational diabetes (O24.415):? s/p Metformin and POCs Recommend??2hr GTT at 6wk visit ?? Asthma (J45.909):? Continue home advair and ventolin ?? GERD (gastroesophageal reflux disease) (K21.9):? Continue home famotidine ?? PCOS (polycystic ovarian syndrome) (E28.2):? Consider restart metformin after 6wk GTT. Recommend follow up with PCP for risk of metabolic syndrome ?? Future Appointments Sunday 1:40 PM EST ?? With: Macario DIEGO, Adela Marroquin Where: [facility] WEIGHT ANALYST [address] [place] [address]- Delivery Summary Delivery Summary Maternal Information ??Labor Information ?Labor Onset, Date/Time: ??02/05/22 14:50:00 ?Baby A ?Labor Onset Methods: ??Induced ?Induction Methods: ??Amniotomy, Cervical [place] Inpatient, Misoprostol, Pitocin ??Delivery Information ?Gestational Age at Delivery: ??37W 1D ?Anesthesia OB: ??Epidural ??02/06/22 06:07:05, Epidural ??02/05/22 22:15:39 ?Obstetrical Laceration: ??Perineum intact, Labial laceration ?Labial Laceration: ??Left ?Anesthesia for Repair: ??Epidural ?Delivery Complications: ??Preeclampsia ?Blood Loss(ml): ??350 mL ? Baby A ??Delivery Information ?Delivery Type: ??Vaginal, vacuum assist ?Date, Time of : ??02/06/22 07:56:00 ?Foot of bed removed: ??Yes ?Delayed Cord Clamping: ??No ?Reason for No Delayed Cord Clamping: ??vac delivery ?Placenta Delivery Date/Time: ??02/06/22 08:09:00 ?Placenta Delivery Method: ??Spontaneous ??Care Team ?Attending Provider: ??Shady Hernández MD ?Delivery Physician: ??Ruddy DIEGO, Lucie Jordan ?supervisor color paste mixing #1: ??Denisha Lr RN ?supervisor color paste mixing #2: ??Karen RECINOS, Nanci ?Loft Worker Head: ??Asa SOTOMAYOR, Coty Phelan ?Time NICU Team Called: ??02/06/22 07:45:00 ??Labor Information ?ROM Date, Time: ??02/05/22 23:11:00 ? monitoring: ?? spiral electrode ?? Information ? Outcome: ??Live ? Position: ??Left occiput anterior ? Weight: ??2.6 kg ? Score 1 minute: ??6 ? Score 5 minute: ??9 ? Score 10 minute: ??9 ?Transferred To: ?? Care area with Family ?Umbilical Cord Description: ??3 vessel cord ? Complications: ??None ?Gender: ??Male ??Operative Delivery ?Operative delivery: ??Vacuum ?Reasons for operative delivery: ??Need to shorten second stage ?Vacuum type: ??Kiwi Omnicup ?Number of contractions vacuum used: ??3 ?Number of vacuum detachments: ??1 ? position at vacuum application: ??AMADA ? station at vacuum application: ??2 ?Vacuum consent obtained: ??Verbally ? Discharge Medications ???Acetaminophen (acetaminophen 325 mg oral tablet)???Albuterol (Albuterol (Eqv- ProAir HFA) 90 mcg/inh inhalation aerosol)???Albuterol (albuterol 0.083% inhalation solution)???Cholecalciferol (Vitamin D3 1000 intl units oral tablet)???Cyanocobalamin (Vitamin B12)???DiphenhydrAMINE (Benadryl 25 mg oral capsule)???Durable Medical Equipment (Nebulizer/Compressor)???Famotidine (famotidine 20 mg oral tablet)???Ferrous Sulfate (ferrous sulfate 325 mg oral tablet)???Fluticasone Nasal (Flonase)???Fluticasone-Salmeterol (fluticasone- salmeterol 500 mcg-50 mcg inhalation powder)???Ibuprofen (ibuprofen 800 mg oral tablet)???Magnesium Oxide (magnesium oxide 250 mg oral tablet)???Multivitamin, ( Multivitamins)???dexlansoprazole (Dexilant 60 mg oral delayed release capsule) Stop taking these medications ???Metformin (metFORMIN 500 mg oral tablet, extended release) Immunizations during Hospitalization Vaccine Date Status Commentstetanus/diphtheria/pertussis, acel(Tdap) 12/06/2021 Given Influenza Virus Vaccine (oldterm) 01/01/2020 Recorded tetanus/diphtheria/pertussis, acel(Tdap) 06/05/2018 Given [facility]# 43171-469-74 ?? PT. TOLERATED INJ. WITHOUT COMPLICATIONS....CO pneumococcal 23-valent vaccine 06/05/2018 Given [facility] [place]# [id number] PT. TOLERATED INJ. WITHOUT COMPLICATIONS...CO influenza virus vaccine, inactivated 04/06/2016 Given [04/06/2016] pt. tolerated inj. without complications...CO influenza virus vaccine, inactivated 12/09/2014 Recorded influenza virus vaccine, inactivated 02/12/2013 Recorded hepatitis B adult vaccine 01/31/2012 Recorded influenza virus vaccine, inactivated 01/05/2012 Recorded hepatitis B adult vaccine 09/06/2011 Recorded hepatitis B adult vaccine 07/31/2011 Recorded hepatitis B adult vaccine 01/08/2011 Recorded Miscellaneous Vaccine 09/01/2009 Recorded [04/14/2015] Measles mumps rubella titer tetanus/diphtheria/pertussis, acel(Tdap) 07/10/2007 Recorded tetanus-diphtheria toxoids (Td) 07/10/2007 Recorded Meningococcal Conjugate Vaccine 03/16/2006 Recorded Measles/Mumps/Rubella Virus Vaccine 08/08/1999 Recorded Measles/Mumps/Rubella Virus Vaccine 11/21/1989 Recorded Feeding Method No Results Patient Instructions Call the office with any concerns including:?? Vaginal bleeding more than spotting Fever of 100.4 or greater Foul-smelling vaginal discharge Redness/swelling/drainage at incision Difficulty or burning with urination?? Nausea and vomiting with inability to tolerate food,?? Pain not controlled by your prescribed medications Shortness of breath or chest pain. Swelling of the extremities. Dizziness or heart palpitations ?? General Instructions: - Do not drive while taking opioid medications. Do not drive for 1-2 weeks - Avoid lifting anything 15 lbs or greater until cleared by doctor. - Stairs are OK but avoid multiple trips/ skipping steps and go slowly. - Walk as often as you are able. - Do not put anything in the vagina. No intercourse, tampons, or douching - Continue your stool softeners (examples: Colace/docusate, senna, Miralax) until no longer taking opioids (e.x. oxycodone) and stools are regular. - Shower as usual. Do not scrub the incisions. Pat the skin dry. Avoid tubs/ soaking/ pools. * Shady Hernández MD: PERFORM Event Display: Discharge/Transfer Note Hospital Authored Date: Attending Attestation: I have seen and evaluated this patient. I have discussed the case and its management with the resident and agree with the findings and plan as documented in the resident???s note. * Ninfa Vasques RN: PERFORM Event Display: Patient Education/Instruction Authored Date: Inpatient Adult Discharge Instructions [address] [address] Name: RAFA RITCHIE : 1990 Visit: 02/05/2022 08:01:00 Current Date: 02/08/2022 14:26 Account: [id number] Inpatient Adult Discharge Instructions We would like to thank [...] and their families. Surveys are administered by [employer] ?? If further treatment with your primary care physician or another doctor is recommended, it is important for you to keep the appointment. Call your primary care physician or return to the Emergency Department immediately if your condition worsens, fails to improve, or new symptoms develop. If you need to find a doctor, you can call [facility] [employer] for a referral at [phone] or toll free at [phone] Health [phone] ([phone]) or log in to [email or web address].. ?? You can view and manage your care through the patient portal or by using a health care ismael of your choosing. [employer] is a website that allows you to securely view your medical information including your hospital discharge summary, office visit summaries, medications and follow-up visits. You can also request appointments, renew medications, and request access to your medical information using a health care ismael of your choosing, or just ask a question. You can enroll at [email or web address] or register during your next office visit. You have been discharged from [facility], Patient Care Unit: WIN2. If you have any questions regarding these instructions after you leave, please call us and we will be happy to assist you. [facility] Your Care Team Attending Physician Macario DIEGO, Adela Marroquin Discharging Providers Shady Hernández MD Reason for Admission Induction of labor Your Diagnosis Encounter for induction of labor Positive GBS test Preeclampsia Asthma Fatty liver GERD (gastroesophageal reflux disease) Gastroparesis Gestational diabetes is the result of in vitro fertilization (IVF) Severe obesity Headache Uncomplicated asthma, unspecified asthma severity, unspecified whether persistent Encounter for supervision of normal , antepartum, unspecified Vacuum-assisted vaginal delivery PCOS (polycystic ovarian syndrome) Tests Performed Below is a partial list of the tests performed during your hospitalization. You may have had other tests and procedures not included in this list. Please discuss all test results with your provider. ALT AST CBC Cord Blood Gas Creatinine GLUCOSE POC Type and Screen Primary Care Provider Nanci Melendez MD Advance Directive Health Care Proxy on File Yes - Health Care Proxy No qualifying data available. Discharge Vitals Temperature: 98.1 DegF Height: 163 cm Pulse Rate: 80 bpm Weight: 128.2 kg Respiratory Rate: 18 br/min Body Mass Index:??48.25 kg/m2??Critical Systolic Blood Pressure: 119 mm Hg Body surface area: 2.41 Diastolic Blood Pressure: 76 mm Hg ?? Oxygen Saturation: 100 % ?? Studies Pending All tests and labs ordered during this hospital stay have been completed unless listed below. Please discuss all pending results with your provider listed above in these instructions. ?? COVID-19 (2019 Novel Coronavirus) PCR What to do next Instructions From Your Doctor Discharge Orders Scheduled Follow-Up Appointments Sunday 10:30 AM EST ?? With: Where: [facility] WEIGHT ANALYST [address] [place] [id number]- Sunday 1:40 PM EST ?? With: Adela Sorto MD Where: [facility] WEIGHT ANALYST [address] [place] [id number]- Discharge Medications RAFA RITCHIE :1990 Visit Date:02/05/2022 Medications: Please continue your medications until treatment is completed or stopped by your provider. Medications not listed below should be discontinued. Discuss any questions related to medications with your provider. What How Much When Instructions Next Dose New Acetaminophen (acetaminophen 325 mg oral tablet) 650 Milligram Oral Every 4 hours as needed for Pain , Mild not to exceed 4000 mg/ day ?? [facility] any time New Ibuprofen (ibuprofen 800 mg oral tablet) 1 tab(s) Oral Every 8 hours as needed for Pain , Moderate not to exceed 3200 mg/ day with food or milk ?? [facility] any time Changed Durable Medical Equipment (Nebulizer/ Compressor) See instructions dx: J45.909 use daily lifetime use ?? Unchanged Albuterol (Albuterol (Eqv-ProAir HFA) 90 mcg/ inh inhalation aerosol) See instructions INHALE 2 PUFFS BY MOUTH 4 TIMES DAILY NEEDED FOR WHEEZING ?? Unchanged Albuterol (albuterol 0.083% inhalation solution) 3 Milliliter Inhalation Every 6 hours as needed for for wheezing Unchanged Cholecalciferol (Vitamin D3 1000 intl units oral tablet) 1 tab(s) Oral Daily Unchanged Cyanocobalamin (Vitamin B12) Unchanged dexlansoprazole (Dexilant 60 mg oral delayed release capsule) See instructions Take 1 capsule by mouth once daily ?? Unchanged DiphenhydrAMINE (Benadryl 25 mg oral capsule) See instructions 2 capsule By Mouth PRN ?? Unchanged Famotidine (famotidine 20 mg oral tablet) See instructions OTC ?? Unchanged Ferrous Sulfate (ferrous sulfate 325 mg oral tablet) 1 tab(s) Oral Twice a day Unchanged Fluticasone Nasal (Flonase) 1 spray(s) Daily Unchanged Fluticasone-Salmeterol (fluticasone-salmeterol 500 mcg-50 mcg inhalation powder) 1 Doses Inhalation Twice a day Unchanged Magnesium Oxide (magnesium oxide 250 mg oral tablet) 2 tab(s) Oral Daily 02/09/22 Unchanged Multivitamin, ( Multivitamins) Oral Daily Pharmacy Information [facility] 1969: [address], [place] [id number] [phone] ?? What How Much When Comments Stop Taking Metformin (metFORMIN 500 mg oral tablet, extended release) See instructions take 1 tablet by moutrh daily ?? Test Results Below is a partial list of the most recent Laboratory test results done prior to this discharge. You may have had other tests and procedures not included in this list. Please discuss all test resultswith your provider. ALT (02/05/2022) ???ALT (SGPT) - 23 units/L AST (02/05/2022) ???AST (SGOT) - 31 units/L CBC (02/05/2022) ???WBC - 11.0 k/mm3???RBC - 5.14 m/mm3???Hgb - 14.1 Gm/dL???Hct - 42.8 %???MCV - 83.3 femtoliters???MCH - 27.4 pg???MCHC - 32.9 g/dL???Platelet Count - 243 k/mm3???RDW-SD - 43.6 femtoliters???MPV - 9.5 femtoliters???Nucleated RBC (Automated) - 0.2 #/100 WBC'S???Abs. NRBC - 0.0 k/mm3 Cord Blood Gas (02/06/2022) ???pH - 7.16???pCO2 - 59 mm Hg???pO2 - 21 mm Hg???Bicarbonate, Estimated - 20 mmol/L???Specimen Type - Blood Gas - CORD BLOOD Creatinine (02/05/2022) ???Creatinine-Blood - 0.9 mg/dL???Estimated GFR Creatinine - 85 ML/MIN/1.73 M2 GLUCOSE POC (02/06/2022) ???Glucose, POC - 75 mg/dL Type and Screen (02/05/2022) ???Blood Type - O Positive???Antibody Screen - Negative Allergies (NKA means No Known Allergies) Other Environmental Allergy Reglan??(EYE TWITCHING) Problems Active Problems??(15) Asthma?? Asthma?? Fatty liver?? Gastroparesis?? Gastroparesis?? GERD (gastroesophageal reflux disease)?? Gestational diabetes?? Headache?? Palpitations?? PCOS (polycystic ovarian syndrome)?? Preeclampsia?? is the result of in vitro fertilization (IVF)? Severe obesity?? Sleep apnea?? Education Materials Below is the list of Educational Leaflet Providered with your Discharge Instructions. OB PP Warning Signs?? OB PP Warning Signs?? OB PP [facility]- Discharge Instructions?? Valuables and Belongings I fully understand and agree that [facility] accepts no responsibility for all my personal [...] ?? Date for Pt to Sign Valuables/Belongings: 02/06/22 06:08:00 ?? Other Discharge Information ? Pulmonary Rehab Status?? Pulmonary Rehab Discharge Status?? Respiratory Rate: 18 br/min ? Common Emergency Awareness Tips IS IT A STROKE? Act FAST and Check for these signs: FACE Does the face look uneven? ARM Does one arm drift down? SPEECH Does their speech sound strange? TIME Call at any sign of stroke ?? Heart [...] strongly encouraged to quit. Please call [facility] [employer] at [phone] or [phone] ([phone]) or log in to [email or web address] for referrals to smoking cessation programs. ?? The National Suicide Prevention Hotline is available 23/10 if you or someone you know needs to find a reason to keep living. By calling 6-825-552-Stretchr (9243) you'll be connected to a skilled, trained counselor at a crisis center in your area. INPATIENT DISCHARGE INSTRUCTIONS SIGNATURE PAGE RAFA RITCHIE Location:[facility] Registration Date and Time:02/05/2022 08:01 [facility] Primary Care Physician: Nanci Melendez MD, I RAFA RITCHIE, have received the above patient education materials/instructions and have verbalized understanding. If ambulance or transport services are being used I further acknowledge beinggiven a choice of service. ?? If you need to contact me, please call me at this number: . Patient/Vulcanizer Rubber Plate Name: Patient/Vulcanizer Rubber Plate Signature: Relationship to Patient: Witness Name/Signature: Date: * Ninfa Vasques RN: PERFORM Event Display: Patient Education Leaflets Authored Date: [id number] OB PP Warning Signs ?? 222 Warning Signs Mom - Warning Signs of Problems to Notify Your Doctor or Supervising Fire Marshal of: ??? Heavy vaginal bleeding (soaking a pad every hour with bright red blood). ??? Large clots the size of an orange or so. ??? A temperature greater than or equal to 100.6F especially if accompanied by painful, frequent urination, lower abdominal pain with a foul smell to vaginal flow, a red hard hot area on breast that could indicate a breast infection. ??? Severe headaches, visual changes such as seeing spots or blurred vision. ??? Extreme back pain. ??? Pain in the back of your legs that is tender to the touch. ??? Breathing difficulties. ??? Signs of depression include: loss of interest in your baby, weepiness, weight loss, exhaustion, feeling of being overwhelmed or anxious. T his is a chemical imbalance that needs medical treatment. Many women do however experience baby blues which is a temporary feeling of weepiness or anxiety which goes away with some good old T.L.C and sleep. Having a baby is a wonderful experience but sleep deprivation, hormone changes and a life style change, can make the best of us have an off day. If these feelings last for a prolonged lengthof time, or begin to affect your appetite, or your ability to sleep, call your doctor or acoustical tile patternmaker. [place] - Warning Signs to notify your journeyman patternmaker of: ??? Most babies develop a small amount of jaundice (a yellowish skin color) in the face and upper chest, by about 3 days of age. If the yellow color extends below the baby's belly or if the baby is very sleepy and not feeding well, call your journeyman patternmaker. ??? A rectal temperature of 100.4F could be a sign of infection. ??? Projectile vomiting that continues with each feeding could indicate reflux or a problem with the formula. ??? Extreme sleepiness or very fussy. ??? Cold symptoms with nasal stuffiness, especially if the baby is having difficulty feeding. ??? Blue or dusky skin color. ??? Constipation with hard stools. ?? * Ninfa Vasques RN: PERFORM Event Display: Patient Education Leaflets Authored Date: [id number] OB PP [facility]- Discharge Instructions ?? 209 Discharge Care Instructions for the New Mom and Baby Please take a few moments to read through these helpful instructions before you leave the hospital.?? Your nurse will be glad to answer any questions you may have.?? You can also find this and more information throughout the purple Becoming a Family booklet, [facility]???s New Beginnings Guide and the Consultation Services Guide given to you after the of your baby.?? You may also phone our nurses stations if you have further questions.?? [facility]:?? First Floor ([phone]), Second Floor ([phone]).?? Please call your provider if you have any questions or concerns?? before your next appointment. For ongoing support please ???Like?? us on our Facebook page ???[facility]???[facility] New Beginnings?? andsign up for our email newsletter at [email or web address].?? News and information will besent to you until your baby???s third birthday. Instructions for the New Mother Activity: For the next 2 weeks at home ??? no heavy lifting, avoid unnecessary stair climbing, and no driving(especially if you are taking medicine that may make you sleepy or feel that you are sleep deprived).?? For the next 4-6 weeks - no tampons, no douches, no sexual intercourse. Use your shanel bottle to rinse your perineum until your vaginal flow stops.?? If you have stitches in your bottom, they generally dissolve within 7-10 days.?? Apply Tucks/witch jazzy pads until your soreness subsides.?? Use your bathroom at home every 3 to 4 hours, rinse, and change your pads. Warm showers feel great on achy muscles, sore backs and sore bottoms. Exercise: Walking is the best form of exercise.?? Wait until your follow up appointment with your provider in4-6 weeks before engaging in more strenuous activity. Diet: Drink plenty of fluids to avoid constipation and to help support your recovery. Eat plenty of iron rich foods such as red meat, iron fortified cereals like Total and Cream of Wheat, raisins, prunes, greens and spinach.?? These will help to build your blood count back up as all women lose some blood after delivery.?? Also add foods rich in Vitamin C such as strawberries, oranges, papayas, kale and truong peppers. Continue to take your vitamins if you are .?? If you are not follow the instructions of your provider.?? If you were prescribed iron supplements such as ferrous sulfate, it is important to continue these until your doctor or acoustical tile patternmaker tells you to stop. Breast Care for Nursing Mothers: Wear a comfortable fitting, supportive nursing bra.?? An underwire bra is not recommended. Express drops of breast milk and rub over your nipples and areola (brown area) before and after each feeding to protect and heal sensitive skin and then air dry your nipples.?? If you are experiencing any soreness, you may purchase nipple cream such as TenderCare or Lansinoh.?? Use it in the following manner:?? finish your feeding or pumping session, self-express colostrum onto your nipple and air dry, apply the nipple cream to the nipple and areola.?? Use only small amounts for best results. If you are having difficulty getting the baby to latch onto the breast due to swelling of the areola, try applying pressure with your fingers for a couple of minutes above and below your nipple and walk your fingers outward softening the area and pushing the swelling away.?? This technique is knownas reverse pressure softening.?? For demonstrations of this and other techniques such as the [place] Hand Expression technique, please refer to the resources section of the Consultation Services Guide that you received from services. When your milk first comes in, usually within 3 to 5 days after delivery, you may experience engorgement.?? Your breasts may become swollen and very tender.?? Cold compresses work great to help with discomfort and reduce swelling. It will get better in a couple of days.?? Continue to nurse your baby frequently.?? Call [facility]???s Consultation Service at [phone], press 1 to schedule an outpatient appointment or press 3 and a oracle bpm consultant will return your call that day or the next if you call after 3pm. Breast Care for Bottle Feeding Mothers: Engorgement may occur within the first week after delivery.?? Your breasts may become hard and verytender.?? A cool compress of cleaned raw green cabbage leaves applied to the breast and changed as leaves wilt has been proven helpful for many women.?? Ice packs or frozen bags of peas also work nicely to ease the discomfort.?? The soreness will only last a couple of days. Keep your back turned to the water while showering to decrease breast stimulation. Wear a snug fitting bra such as a sports bra. ?? Control: Your doctor or acoustical tile patternmaker will discuss control methods with you when you are discharged from thespital or at your checkup.?? Be sure to let your provider know if you are . You had a Paragard IUD placed on .?? This control method is effective for 10 years. You had a Liletta placed on .?? This control method is effective for up to 5 years. You had a Nexplanon placed on .?? This control method is effective for up to 3 years. You received a Depo Provera injection on .?? This control method is effective as longas you repeat it every 3 months.?? Schedule your next dose before . You have a prescription for control pills .?? It is important to take a pill everyday at around the same time of day for effective control protection.?? Pain Management: Cramping after is common and increases in strength with each baby you have.?? If you experience painful cramps, and have no allergies to acetaminophen (Tylenol) or ibuprofen (Motrin), you may continue to take these medications as you did in the hospital.?? Ibuprofen is also helpful with back aches following epidurals, perineal pain following a vaginal delivery, and moderate incisional pain after a section or a tubal ligation.?? If you experience gas distention, especially after surgery, you may take an over the counter medication called simethicone.?? Take these chewable tablets 4 times a day as needed and directed on the package.?? Keep moving.?? Walking or rocking in a chair, will help to move the gas along.?? Marce tea made with heated marce dennis (instead of water) and a tea bag, stirred to dissolve carbonation (bubbles) is a helpful drink to soothe a gassy stomach. Warning Signs of a Problem to Notify Your Doctor or Supervising Fire Marshal of: Heavy vaginal bleeding ??? which is soaking a pad every hour with bright red blood. Passing blood clots the size of an egg or larger. An incision that is not healing. A temperature greater than or equal to 100.4 especially if accompanied by any of the following symptoms ??? painful, frequent urination; extreme back or flank pain; lower belly pain with a foul smellto your vaginal flow; a red hard hot area on your breast.?? Severe headache that does not go away after taking acetaminophen or ibuprofen.?? A headache that changes your vision, including seeing spots or blurring. Right sided upper abdominal pain along the rib cage area. Pain in your legs that is warm and tender to the touch. depression signs may include ??? loss of interest in your baby, weepiness, difficulty focusing, weight loss with no appetite, exhaustion, feeling overwhelmed or anxious, feelings of despair, or thoughts of harming yourself or your baby.?? These symptoms are important and should be discussed with your doctor or acoustical tile patternmaker. depression may develop over a period of time and needs prompt medical attention.?? Do not suffer in silence.?? In both the Becoming a Family booklet and the[facility] Guide there is a screening tool used to identify women at risk, called the Eleanor Scale which you have taken in the office prior to delivery and again during your hospital s lui se.?? Three to four weeks after your delivery, and before your check with your provider, take this test and share your results with your provider.?? Be sure to mention any score of 10 or more.?? Many women, and even some partners, may experience the ???baby blues?? .?? This is a state of feeling overwhelmed and weepy.?? Discomfort from childbirth, hormonal changes, exhaustion, changes to your body and lifestyle are a few of the things that contribute to the highs and lows new parents go through.?? Don???t be afraid to ask your partner or family and friends for some help at home so you can get some rest and a few minutes to yourself.?? The blues will quickly pass. Personal Safety: Every person has the right to feel safe at home and live free from physical or emotional harm.?? Ifyou have suffered mental or physical abuse at home, you are not alone.?? There is help.?? Please call HOTLINE or the [employer] Program at [phone]. CARE Bathing: Give your baby a sponge bath until the cord falls off in about 1-3 weeks.?? It is not necessary to bathe your baby every day, usually every few days is sufficient. ??Keep the cord area dry.?? Some baby girls will have a small bloody vaginal discharge. No need to worry as this is normal. It is not necessary to use lotions on the baby???s skin.?? Powders and oils are not recommended.?? Babies often get rash on their skin which comes and goes quickly and does not require any special care.?? Diaper rash can be treated with a zinc oxide preparation such as Desitin or Balmex diaper cream. Circumcision Care: Your nurse will teach you how to care for your baby???s circumcision depending on the type of circumcision your doctor or acoustical tile patternmaker performed.?? Most circumcisions require A&& ointment for about 4-5 days.?? Be generous with the amount of A&& used as this will prevent the diaper from sticking when you go to change it. If a plastibell circumcision was done, the plastic ring around the penis will fall off in a week orso. Diapers: After the 1st??few days, the baby will start wetting more often.?? A breast fed baby will wet about6-8 times a day once mom???s milk comes in ??? usually day 4 or 5.?? This is a good sign that the baby is getting plenty to eat.?? You may notice an orangey-pink stain in the diaper which is normal for the first few days. The baby???s first bowel movements are sticky, black and tarry.?? As the baby starts to feed more often over the next couple of days, the stool will change to a seedy yellowish green color and eventually a loose mustard like stool for a breast fed baby and a more formed yellow stool for a bottle fed baby. your Baby: ??Congratulations on deciding to breastfeed your baby! You are providing your baby with the most nourishing food source on the planet, your breast milk.?? Cues such as rooting, suckling, licking and fussing may be telling you that your baby is ready to eat ??? and it is time to offer your breasts. The first weeks following the are a time for you and your baby to learn.?? The baby may be sleepy the first day after with 8 to 12 attempts ??? including 2 to 4 good feedings.?? Over the next couple of days the baby will become more wakeful, feed 8 to 12 times a day and have more wet and poopy diapers.?? Cluster feeding, especially during the evening/night time, is normal. ?? Listen for swallowing sounds and watch the baby as they become more relaxed at the breast ??? both good signs that the baby is getting a good amount of milk.?? Refrain from smoking or eating edible marijuana while you are . Even though marijuana is legal in the state of [place],??it is harmful for your baby.??It stays in breast milk for along period of time and THC can be found in the baby's urine for up to 3 weeks. Second hand smoke can also increase the risk??of Sudden Syndrome / SIDS. ?? Nursing is wonderful but many moms and babies have some degree of difficulty with at first. Don???t give up!?? There are many resources available to help you overcome these temporary problems. Your journeyman patternmaker wants to hear from you if you are having difficulties and can offermany helpful suggestions.?? Some offices have consultants on staff. [facility]???s Consultation Service is available 7 days a week, 8am to 3pm at [phone].?? Press 1 to schedule an outpatient appointment.?? Press 3 to leave a message for the loan consultant, a oracle bpm consultant will return your call that day or the next if you call after 3pm. Support Groups ??? [facility] offers free gatherings for moms and babies weekly.?? All groups meet at the [facility] Women???s 2nd??floor, typically in the [facility] Conference Room, Sunday???s 1 to 2 pm.?? Diane Leyva is a worldwide organization with local community support, mother to mother support.?? Information can be found at https://www.lllusa.org Formula Feeding your Baby: Formula fed babies should eat every 3 to 4 hours.?? Look for cues that your baby is ready ??? such as rooting and sucking, licking and fussing.?? At the baby???s stomach is small and may take 10-15ml of formula.?? Over the next few days the baby will become more wakeful and feed more frequently, gradually increasing the amounts of formula taken at a feeding.?? Your journeyman patternmaker will provideinstructions on how to increase the amount.?? Refer to packaging for formula preparation directions, depending on the type of formula you purchase ??? powder, concentrate or ready to feed. Infant Safety: ALWAYS REMEMBER - BACK TO SLEEP! Babies sleep safest on their backs.?? Every sleep.?? Every time.?? Every nap. Babies need a firm sleep surface with a tight fitting bottom sheet.?? NO loose bedding.?? NO pillows.?? NO bumper pads or rolls.?? NO heavy or fluffy blankets. NO stuffed toys. It is not safe for your baby to sleep in your bed, in a chair, or on a sofa.?? Your baby should notsleep with you or anyone else. Car Seat: Always place your baby in a rear facing car seat in the backseat of the car. Car seat inserts that come with the car seat can be used as they are crash tested with the seat.?? You should not buy additional inserts.?? Dress the baby in a weather appropriate outfit.?? Avoid bulky clothing such as snowsuits or jackets as the baby may squirm in the seat, loosening the shoulder straps and come out of the top of the harness if you need to brake hard or are in an accident.?? Once the baby issecured in the seat you can cover your little one with a blanket if needed.?? If your baby was bornprematurely, follow the directions given to you.?? If you have not already done so, check to make sure your car seat is installed correctly. Check with your local Fire and Police Department to see if they offer car seat inspections at a location close to you. Babies Can Move: ?? Never leave your baby unattended on any surface, raised or flat, or while bathing.?? They can squirm, fall or hurt themselves.?? Always fasten the safety belt when using an infantseat or swing ??? as they may lean forward and fall. Good Handwashing is the number one way you can protect the baby from too?? many germs and prevent infection.?? When family and friends visit ask that they wash their hands before holding your baby.??Also avoid crowds the first month of your baby???s life to protect from colds and flus. Shaking a baby out of frustration can cause severe and lasting damage, even to a baby.?? If you feel you are becoming angry or overwhelmed, place the baby in a safe place and walk away.?? Call a friend or family member.?? If they are not able to offer immediate help call the Parental Stress Hotline at?? , an anonymous 23/10 source of help. Warning Signs to notify your journeyman patternmaker of: Most babies develop a small amount of jaundice (a yellowish skin color) in the face and upper chest, by about 3 days of age.?? If the yellow color extends below the baby???s belly or if the baby is very sleepy and not feeding well, call your journeyman patternmaker. A rectal temperature of 100.4F as it could be a sign of infection. Projectile vomiting that continues with each feeding could indicate reflux or a problem with the formula. Extreme sleepiness or very fussy. Cold symptoms with nasal stuffiness, especially if the baby is having difficulty feeding. Constipation with hard stools. Blue or dusky color, call 911. If Your Baby Needs to Remain in the Hospital: Please leave your baby???s ID bracelets on if your baby needs to remain in the hospital after you are discharged home. ?? The phone number to Susan Wren 2 is [phone]. moms should pump every 2-3 hours or 8-12 times in 24 hours.?? If unable to place the baby to breast, if you are having difficulty getting the baby to latch on, or if the baby remains inthe hospital after you are discharged ??? bring the pumped milk to the hospital, labeled with name,date and time.?? Carry it in a small cooler or diaper bag with an ice pack and bring it the next time you visit your baby.?? Consultation Services is available if you need to rent or purchase a pump or products.?? Call and leave a message at [phone] ??? press 3 and a oracle bpm consultant will return your call that day or the next if you call after 3pm. ?? This information has been modified by your health care provider with permission from the publisher. ?? * Luana Matos RN: PERFORM Event Display: Care Team Progress Note Authored Date: Patient: ??RAFA RITCHIE ? Age:??31 Years?Sex:??Female?:??1990?? Subjective consult for 31 y.o. , 37w1d at 24 h post VAVD. Mother desires , has beensupplementing with formula and offering the breast. Assessment/Plan Mother states baby has been very sleepy and difficult to latch on the breast. States was also difficult to feed with bottle nipple until this morning. Baby now taking 20 ml formula??with each feed. ?? REviewed massage and HE. Breasts noted to be medium size, soft. Nipples intact, everted, able to express small drops of colostrum to spoon. REviewed feeding and behavior expectations for LPT baby andfor cluster feeding. Assisted with positioning baby on L breast in cross chest. Baby nuzzled nipple, very sleepy, unable to obtain wide gape to latch baby. Encourage mother to continue with STS and HE. Will return to assist with feed during the day.?? Mother has home pump. ?? Basic education discussed with??motherincluding:? Positioning infant for optimal feeding Asymmetric latch technique Frequent breast stimulation for initiation and maintenance of milk supply Coming to full milk volume in first 14 days Engorgement prevention and management Hand expression When to use a breast pump Consultation reference guide given to mother with contact information for services and ongoing support as needed.? Late Pre-Term & Early Term [place] Education:? Higher risk for feeding related issues ? Under developed fat cheek pads leading to less milk removal in early days ? Increased sleepiness?? Parent Resource Sheet given including??supplement recommendations via ABM protocol ? Day 1: Hand express and spoon feed 5-10 mL? Day 2-4: Hand express/pump 10-15 mL using spoon/bottle or cup with provider guidance ? Day 4 and on: Pump 10-30 mL using bottle or cup with provider guidance ?*These measurements are to supplement when a latch is not achieved and can be added to the end of??feed during slow weight gain ? will follow up. REviewed plan with residential leasing manager. To have [employer] pump to room. ?? Rayshawn RN, IBCLC OB Summary : 2 Parity: 0 . Baby A - Weight: 2.6 kg Baby A - Date, Time of : 02/06/22 07:56:00 Baby A - Gender: Male EGA at Documented Date, Time: 37W 1D Weight at Delivery Baby A - Delivery Type: Vaginal, vacuum assist Delivery Complications: Preeclampsia OB History History?(0,0,1,0)? # 1 ?Baby 1 ?Outcome Date:??01/2021 ?Outcome or Result:??Spontaneous ?Gest Age:??6 weeks ? Outcome:? Sex:??-- ?Comment:??IVF (fresh transfer). Did not require a D&C Active Problem List Active Problem List Asthma: (Medical) Asthma: (Medical) Fatty liver: (Medical) Gastroparesis: (Medical) Gastroparesis: (Medical) GERD (gastroesophageal reflux disease): (Medical) Gestational diabetes: (Medical) Headache: (Medical) Palpitations: (Medical) PCOS (polycystic ovarian syndrome): (Medical) Preeclampsia: (Nursing) Problem added by Discern Expert (02/06/22) is the result of in vitro fertilization (IVF): (Medical) : (Obstetric) (06/10/21) Severe obesity: (Medical) Sleep apnea: (Medical) Home Medications Albuterol: See Instructions, INHALE 2 PUFFS BY MOUTH 4 TIMES DAILY NEEDED FOR WHEEZING Albuterol: 2.5 mg = 3 mL, Inhalation, Every 6 hours, PRN (for wheezing) Cholecalciferol: 1,000 International_Units = 1 tablet, By Mouth, Daily Cyanocobalamin dexlansoprazole: See Instructions, Take 1 capsule by mouth once daily DiphenhydrAMINE: See Instructions, 2 capsule By Mouth PRN Durable Medical Equipment: See Instructions, dx: J45.909use dailylifetime use Durable Medical Equipment: See Instructions, To test BS 4 x day. Durable Medical Equipment: See Instructions, To test blood sugar 4 x day.1 Bottle= 100 test strips Durable Medical Equipment: See Instructions, To test blood sugar 4 x day.1 packet =100 lancets Famotidine: See Instructions, OTC Ferrous Sulfate: 325 mg = 1 tablet, By Mouth, 2 times a day Fluticasone Nasal: 1 sprays, Daily Fluticasone-Salmeterol: 1 Doses, Inhalation, 2 times a day Magnesium Oxide: 500 mg = 2 tablet, By Mouth, Daily Metformin: See Instructions, take 1 tablet by moutrh daily Multivitamin, : By Mouth, Daily Medications Medications (8) Active SCHEDULED: (3) Fluticasone-Salmeterol 230 mcg-21 mcg Inhaler (Advair 230 mcg-21 mcg Inhaler) ??2 puffs, Inhalation, 2 times a day Magnesium Oxide 400 mg Tablet (magnesium oxide 400 mg oral tablet) ??400 mg, By Mouth, Daily at bedtime Multivitamin Tablet ( Multivitamin Tablet) ??1 tablet, By Mouth, Daily CONTINUOUS: (0) PRN: (5) Acetaminophen 325 mg Tablet (Acetaminophen Tablet) ??650 mg, By Mouth, Every 4 hours Albuterol 90mcg/Inhalation Inhaler HFA (Ventolin 90 mcg Inhaler) ??180 mcg 2 puffs, Inhalation, Every 4 hours Docusate Sodium 100 mg Capsule (Docusate Sodium Capsule) ??100 mg 1 capsule, By Mouth, 2 times a day Famotidine 10 mg/mL Inj (Famotidine Inj) ??20 mg 2 mL, IV Push Slowly, Every 12 hours Ibuprofen 800 mg Tablet (Ibuprofen Tablet) ??800 mg, By Mouth, Every 8 hours * Luana Matos RN: PERFORM Event Display: Care Team Progress Note Authored Date: [id number] At bedside for follow up visit. Baby alert and eager to feed. BAby placed skin to skin, nuzzling and rooting at breast.??Weak to moderate??latch observed on R side in football. Gradually baby noted to widen gape ton grasp nipple. MOther reported tugs at beginning of latch then baby would release nipple. Attempted to relatch baby?? on L but baby sleepy. REviewed plan for mother to paced bottle feed baby 15 ml, then pump and to repeat process q 2-3 hours with frequent STS and HE. MOtherverbalized understanding and agrees with plan. will follow up. ?? Raysahwn, RN, IBCLC Patient Care team information Care Team Personnel Name: Nanci Melendez MD Position: [facility] Primary Care Physician Member Role: PCP Address: Address: [address] [place] [id number]- Name: Shanice RECINOS, Agnes Position: [facility] OB RN Member Role: Patient Care Provider Care Team Related Persons Name: RAFA RITCHIE NILDA Address: [id number] Address: [address] [place] [address] Name: DERRELL RITCHIE Address: home [address] [place] [address] Name: DERRELL RITCHIE Address: home [address] [place] [address] Name: DERRELL RITCHIE Address: home [address] [place] [id number] Name: SHEBA CANO Address: home [address] [place] [address] Name: DAYANNA CANO Address: home [address] [place] [address]
--- OUTSIDE RECORDS SUMMARY | 2024-02-22 11:42 | XMS_ITS | Continuity of Care Document ---
Author Organization [facility] Address [address] [place] [phone]- Care Team Providers Care Wind Tunnel Technician Name Role Phone Nanci Melendez MD Primary Care Physician [phone] Encounter [facility] Date(s): 08/19/20 - 08/26/20 [facility] [address] [place] [id number]- Attending Physician: Jalyn Cabrera MD Referring Physician: [...] Recor ded 1Result Comment: [facility]# [id number] PT. TOLERATED INJ. WITHOUT COMPLICATIONS....CO 2Result Comment: [facility]# [id number] PT. TOLERATED INJ. WITHOUT COMPLICATIONS...CO 3Result Comment: [04/06/2016] pt. tolerated inj. without complications...CO 4Result Comment: [04/14/2015] Measles mumps rubella titer Medications Advair Diskus 500 mcg-50 mcg inhalation powder 1, puffs, Inhalation, 2 times a day, # 1 each, Refills 12, Tot. Refills 12, Maintenance, 12/24/19 13:40:00 EDT, Route to Pharmacy Electronically, [id number], [facility], 161, cm, 06/12/19 8:56:00 EDT, Height, 106,... Start Date: 12/24/19 Status: Ordered Albuterol (Eqv-ProAir HFA) 90 mcg/inh inhalation aerosol 2 puffs, Inhalation, 4 times a day, PRN NEEDED FOR WHEEZING, # 18 Gm, 10 Refills, Maintenance, 06/07/20 14:34:00 EST, [facility], 50, INHALE 2 PUFFS BY MOUTH 4 TIMES DAILY NEEDED FORWHEEZING, 161, cm, 02/10/20 14:26:00 EST, Height, 1... Start Date: 06/07/20 Status: Ordered albuterol-ipratropium 3 mg-0.5 mg/3 ml inhalation solution 3 mL, Neb, 4 times a day, PRN shortness of breath, # 180 mL, 11 Refills, Maintenance, 06/18/20 9:36:00 EDT, Solution, [facility], 3 mL Neb [...] 3 Refills, Maintenance, 12/24/19 13:41:00 EDT, ECCapsule, [facility], 161, cm, 06/12/19 [...] tablet, 11 Refills, Maintenance, 02/10/20 14:25:00 EST, [facility], 161, c... Start [...] each, 11 Refills, Maintenance, 06/18/20 9:35:00 EDT, [facility], 161, cm, 219:18:00 [...] 07/09/20 16:28:00 EDT, Route to Pharmacy Electronically, [facility], Partial fill upon [...]
--- OUTSIDE RECORDS SUMMARY | 2024-02-22 11:42 | XMS_ITS | Continuity of Care Document ---
Author Organization [facility] [employer] [facility] Address [address], 4[place] [address]- Care Team Providers Care Nurse Staff [facility] Name Role Phone Nanci Melendez MD Primary Care Physician Encounter [facility] Date(s): 01/04/22 - 03/15/22 [facility] Tynerenrique [employer]osa[employer] [facility] [address], [address] [place], [place] [address] Attending Physician: Estela Rosales MD Allergies, [...] Virus Vaccine 11/21/89 Recor ded 1Result Comment: [facility]# [id number] PT. TOLERATED INJ. WITHOUT COMPLICATIONS....CO 2Result Comment: [facility]# [id number] PT. TOLERATED INJ. WITHOUT COMPLICATIONS...CO 3Result Comment: [04/06/2016] pt. tolerated inj. without complications...CO 4Result Comment: [04/14/2015] Measles mumps rubella titer Medications acetaminophen 325 mg oral tablet 650 mg, By Mouth, Every 4 hours, PRN, not to exceed 4000 mg/day, # 60 tablet, Refills 0, Tot. Refills 0, Maintenance, Pain , Mild, 02/08/22 8:05:00 EST, Route to Pharmacy Electronically, [facility] 1966, Partial fill upon patient request if the... Start Date: 02/08/22 Status: Ordered Albuterol (Eqv-ProAir HFA) 90 mcg/inh inhalation aerosol See Instructions, INHALE 2 PUFFS BY MOUTH 4 TIMES DAILY NEEDED FOR WHEEZING, # 9 Gm, 6 Refills, 08/17/21 9:51:00 EDT, [facility] 1966, 25, INHALE 2 PUFFS BY MOUTH 4 TIMES DAILY NEEDED FORWHEEZING, 162, cm, 08/03/21 16:59:00 EDT, Height, 1... Start Date: 08/17/21 Status: Ordered albuterol 0.083% inhalation solution 3 mL = 2.5 mg, Inhalation, Every 6 hours, PRN for wheezing, # 100 each, 5 Refills, Maintenance, 08/17/21 9:51:00 EDT, Solution, [facility] 1966, replaces previous Rx for [...] capsule, 0 Refills, 03/14/22 14:26:00 EST, [facility] 1967, 163, cm, 02/27/22 9:06:00 EST, Height, 128.2, kg, 02/05/22 12:22:00 EST, Dry Weight Start Date: 03/14/22 Status: Ordered Diflucan 150 mg oral tablet 1 tablet = 150 mg, By Mouth, Once, # 1 tablet, 0 Refills, Soft Stop, 03/01/22 15:59:00 EST, Tablet,[facility] 1967, Partial fill upon patient [...] 11 Refills, Maintenance, 08/18/21 16:40:00EDT, Tablet, [facility] 1966, Partial fill upon patient [...] 08/17/21 9:51:00 EDT, Route to Pharmacy Electronically, [id number], [facility] 1967, 162, cm, 08/03/21 16:59:00 EDT, Height, 110, kg, 08/03/21 1... Start Date: 08/17/21 Status: Ordered ibuprofen 800 mg oral tablet 800 mg, 1, tablet, By Mouth, Every 8 hours, PRN, not to exceed 3200 mg/day with food or milk, # 40 tablet, Refills 0, Tot. Refills 0, Maintenance, Pain , Moderate, 02/08/22 8:05:00 EST, Route to Pharmacy Electronically, [facility] 1967, Partial... Start Date: 02/08/22 [...] Team Personnel Name: Nanci Melendez MD Position: [facility] Primary Care Physician Member Role: PCP Address: Address: [address] [place] [address]- Care Team Related Persons Name: ERMALANESEAN Address: [address] Address: home [address] [place] [address] [place] Name: DERRELL RITCHIE Address: home [address] [place] [address] Name: DERRELL RITCHIE Address: home [address] [facility] [address] [place] [address] Name: DERRELL RITCHIE Address: home [address] [facility] [address] [place] [address] Name: SHEBA CANO Address: home [address] [place] [address] Name: DAYANNA CANO Address: home [address] [place] [address]
--- OUTSIDE RECORDS SUMMARY | 2024-02-22 11:42 | XMS_ITS | Continuity of Care Document ---
Author Organization [facility] [employer] [facility] Address [address] [place] [address], 4[place] [address]- Care Team Providers Care Chemical Treatment Operator Name Role Phone Nanci Melendez MD Primary Care Physician Encounter [facility] Date(s): 11/22/21 - 03/22/22 [facility] Pollockenrique [employer] [facility] [address] [facility] [facility], [address] [place], [place] [address] Attending Physician: Adela Sorto MD Allergies, Adverse [...] Recor ded 1Result Comment: [facility]# [id number] PT. TOLERATED INJ. WITHOUT COMPLICATIONS....CO 2Result Comment: [facility]# [id number] PT. TOLERATED INJ. WITHOUT COMPLICATIONS...CO 3Result Comment: [04/06/2016] pt. tolerated inj. without complications...CO 4Result Comment: [04/14/2015] Measles mumps rubella titer Medications acetaminophen 325 mg oral tablet 650 mg, By Mouth, Every 4 hours, PRN, not to exceed 4000 mg/day, # 60 tablet, Refills 0, Tot. Refills 0, Maintenance, Pain , Mild, 02/08/22 8:05:00 EST, Route to Pharmacy Electronically, [facility] 1966, Partial fill upon patient request if the... Start Date: 02/08/22 Status: Ordered Albuterol (Eqv-ProAir HFA) 90 mcg/inh inhalation aerosol See Instructions, INHALE 2 PUFFS BY MOUTH 4 TIMES DAILY NEEDED FOR WHEEZING, # 9 Gm, 6 Refills, 08/17/21 9:51:00 EDT, [facility] 1967, 25, INHALE 2 PUFFS BY MOUTH 4 TIMES DAILY NEEDED FORWHEEZING, 162, cm, 08/03/21 16:59:00 EDT, Height, 1... Start Date: 08/17/21 Status: Ordered albuterol 0.083% inhalation solution 3 mL = 2.5 mg, Inhalation, Every 6 hours, PRN for wheezing, # 100 each, 5 Refills, Maintenance, 08/17/21 9:51:00 EDT, Solution, [facility] 1966, replaces previous Rx for [...] mL, 0 Refills, Maintenance, 03/17/22 15:45:00 EST, [facility], Partial fill upon patient request if the prescription is for a schedule II opioid drug., 163, cm, 03/17/22... Start Date: 03/17/22 Stop Date: 03/31/22 Status: Ordered Dexilant 60 mg oral delayed release capsule See Instructions, Take 1 capsule by mouth once daily, # 90 capsule, 0 Refills, 03/14/22 14:26:00 EST, [facility], 163, cm, 02/27/22 9:06:00 EST, Height, 128.2, kg, 02/05/22 12:22:00 EST, Dry Weight Start Date: 03/14/22 Status: Ordered Diflucan 150 mg oral tablet 1 tablet = 150 mg, By Mouth, Once, # 1 tablet, 0 Refills, Soft Stop, 03/01/22 15:59:00 EST, [facility], Partial fill upon patient request [...] tablet, 11 Refills, Maintenance, 08/18/21 16:40:00EDT, Tablet, [facility], Partial fill upon patient request [...] 08/17/21 9:51:00 EDT, Route to Pharmacy Electronically, [id number], [facility] 1967, 162, cm, 08/03/21 16:59:00 EDT, Height, 110, kg, 08/03/21 1... Start Date: 08/17/21 Status: Ordered ibuprofen 800 mg oral tablet 800 mg, 1, tablet, By Mouth, Every 8 hours, PRN, not to exceed 3200 mg/day with food or milk, # 40 tablet, Refills 0, Tot. Refills 0, Maintenance, Pain , Moderate, 02/08/22 8:05:00 EST, Route to Pharmacy Electronically, [facility] 1967, Partial... Start Date: 02/08/22 [...] Team Personnel Name: Nanci Melendez MD Position: [facility] Primary Care Physician Member Role: PCP Address: Address: [address] [place] [address]- Care Team Related Persons Name: SEAN RITCHIE Address: [id number] Address: home [address] [place] [address] Name: DERRELL RITCHIE Address: home [address] [place] [address] Name: DERRELL RITCHIE Address: [address] [address] Name: DERRELL RITCHIE Address: [address] [address] Name: SHEBA CANO Address: home [address] [place] [address] Name: DAYANNA CANO Address: [address] [place] [address]
--- OUTSIDE RECORDS SUMMARY | 2024-02-22 11:42 | XMS_ITS | Continuity of Care Document ---
Author Organization [facility] [employer] [facility] Address [address] [place] [address], 4[place] [address]- Care Team Providers Care Establishment Guide Name Role Phone Nanci Melendez MD Primary Care Physician Encounter [facility] Date(s): 03/17/22 - 03/24/22 [facility] Hughsonenrique [facility] [facility] [address] [facility], [address] [place], [place] [address] Attending Physician: Adela Sorto MD Allergies, [...] Comment: [facility]# [id number] PT. TOLERATED INJ. WITHOUT COMPLICATIONS....CO 2Result Comment: [facility]# [id number] PT. TOLERATED INJ. WITHOUT COMPLICATIONS...CO 3Result Comment: [04/06/2016] pt. tolerated inj. without complications...CO 4Result Comment: [04/14/2015] Measles mumps rubella titer Medications acetaminophen 325 mg oral tablet 650 mg, By Mouth, Every 4 hours, PRN, not to exceed 4000 mg/day, # 60 tablet, Refills 0, Tot. Refills 0, Maintenance, Pain , Mild, 02/08/22 8:05:00 EST, Route to Pharmacy Electronically, [facility] 1966, Partial fill upon patient request if the... Start Date: 02/08/22 Status: Ordered Albuterol (Eqv-ProAir HFA) 90 mcg/inh inhalation aerosol See Instructions, INHALE 2 PUFFS BY MOUTH 4 TIMES DAILY NEEDED FOR WHEEZING, # 9 Gm, 6 Refills, 08/17/21 9:51:00 EDT, [facility] 1967, 25, INHALE 2 PUFFS BY MOUTH 4 TIMES DAILY NEEDED FORWHEEZING, 162, cm, 08/03/21 16:59:00 EDT, Height, 1... Start Date: 08/17/21 Status: Ordered albuterol 0.083% inhalation solution 3 mL = 2.5 mg, Inhalation, Every 6 hours, PRN for wheezing, # 100 each, 5 Refills, Maintenance, 08/17/21 9:51:00 EDT, Solution, [facility] 1966, replaces previous Rx for [...] mL, 0 Refills, Maintenance, 03/17/22 15:45:00 EST, [facility], Partial fill upon patient request if the prescription is for a schedule II opioid drug., 163, cm, 03/17/22... Start Date: 03/17/22 Stop Date: 03/31/22 Status: Ordered Dexilant 60 mg oral delayed release capsule See Instructions, Take 1 capsule by mouth once daily, # 90 capsule, 0 Refills, 03/14/22 14:26:00 EST, [facility], 163, cm, 02/27/22 9:06:00 EST, Height, 128.2, kg, 02/05/22 12:22:00 EST, Dry Weight Start Date: 03/14/22 Status: Ordered Diflucan 150 mg oral tablet 1 tablet = 150 mg, By Mouth, Once, # 1 tablet, 0 Refills, Soft Stop, 03/01/22 15:59:00 EST, [facility], Partial fill upon patient request [...] tablet, 11 Refills, Maintenance, 08/18/21 16:40:00EDT, Tablet, [facility], Partial fill upon patient request [...] 08/17/21 9:51:00 EDT, Route to Pharmacy Electronically, [id number], [facility], 162, [...] EST, Route to Pharmacy Electronically, [facility], Partial... Start Date: 02/08/22 [...] oldest [Reference Range]: 1 Height 163 cm (03/17/22 2:12 PM) Weight 113.18 kg (03/17/22 2:12 PM) Body Mass Index [18.5-24.99 kg/m2] 42.6 kg/m2 *>HHI* (03/17/22 2:12 PM) Blood Pressure [90-138/55-84 mm Hg] 102/ 61mm Hg (03/17/22 2:12 PM) Blood pressure sites Arm, left (03/17/22 2:12 PM) Weight Obtained Via Standing scale (03/17/22 2:12 PM) Social History Social History Type Response Smoking Status Never smoker; Tobacc o user in household: No entered on: 07/02/15 Sex Note * Olga Schuler: PERFORM, SIGN, VERIFY Event Display: Patient Education/Instruction Authored Date: [id number] [facility] *Jonelle BELLG 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 Future Appointments ?*Jonelle??WW[facility]??WORKERS COMPENSATION CLAIMS ASSISTANT ?[address]??[place],??[place],??[address] ?Phone:??--?Fax:??-- ?Appt. Date:??05/01/2022?2:00 PM ?Scheduled Provider:??Macario DIEGO, Adela Marroquin Follow-Up Instructions ?? Diagnosis Personal history of gestational diabetes Medications: Please continue your medications until treatment [...] Multivitamin, ( Multivitamins) Oral Daily. Next Dose: Allergy Info:?? Other Environmental Allergy; Reglan Medications Given This Visit Future Orders ?Glucose Tolerance 2 Hr Std? Order Date:03/17/22?- Complete within?6 week(s) Vital Signs Height 163 cm Weight 113.18 kg BMI 42.6 kg/m2 Blood Pressure 102 mm Hg/61 mm Hg Temperature Pulse Rate Respiratory Rate 02 Sat Mode of Delivery / You can now view a summary of your hospital visit from the comfort of your home through a free online portal called [employer]. [employer] is a website that allows you to securely view your medical information including discharge summary, medications and follow-up visits. ??You can alsosend a secure electronic message to your doctor???s office to request appointments, renew medications or just ask a question. You can enroll at [email or web address] or register during your next office visit. [...] primary care provider, you may find a [facility] provider by calling [facility] Link at [phone]. For information about the plan of care including goals and instructions for your diagnosis, please see the patient education orders section of this document. Patient Education Materials?? The content of this educational material or handout may have been modified, supplemented, or adapted from its original content and format to support your individualized medical care. Please follow instructions discussed with your provider during this visit as well as any education documents you were given today. Patient Care team information Care Team Personnel Name: Nanci Melendez MD Position: S Primary Care Physician Member Role: PCP Address: Address: [address] [place] [address] Care Team Related Persons Name: SEAN RITCHIE Address: [address] Address: home [address] [place] [address] Name: DERRELL RITCHIE Address: home [address] [facility] [address] [place] [address] Name: DERRELL RITCHIE Address: home [address] [facility] [address] [place] [address] Name: DERRELL RITCHIE Address: home [address] [facility] [address] [place] [address] Name: SHEBA CANO Address: home [address] [place] [address] Name: DAYANNA CANO Address: home [address] [place] [address]
--- OUTSIDE RECORDS SUMMARY | 2024-02-22 11:42 | XMS_ITS | Continuity of Care Document ---
Author Organization [facility] [employer] [facility] Address [address] [facility], [address] [place] [address]- Care Team Providers Care Signals Officer Name Role Phone Al DIEGO, Nanci Segovia Primary Care Physician [phone] [facility] Date(s): 01/04/22 - 03/18/22 [facility] Crawfordenrique [facility]osa[facility] [address] [facility], [address] [place], [place] [address] Attending Physician: Stanton DIEGO, Emerson Andrews Referring Physician: Estela Rosales MD Allergies, Adverse [...] Recor ded 1Result Comment: [facility]# [id number] PT. TOLERATED INJ. WITHOUT COMPLICATIONS....CO 2Result Comment: [facility]# [id number] PT. TOLERATED INJ. WITHOUT COMPLICATIONS...CO 3Result Comment: [04/06/2016] pt. tolerated inj. without complications...CO 4Result Comment: [04/14/2015] Measles mumps rubella titer Medications acetaminophen 325 mg oral tablet 650 mg, By Mouth, Every 4 hours, PRN, not to exceed 4000 mg/day, # 60 tablet, Refills 0, Tot. Refills 0, Maintenance, Pain , Mild, 02/08/22 8:05:00 EST, [facility], Partial fill upon patient request if the... Start Date: 02/08/22 Status: Ordered Albuterol (Eqv-ProAir HFA) 90 mcg/inh inhalation aerosol See Instructions, INHALE 2 PUFFS BY MOUTH 4 TIMES DAILY NEEDED FOR WHEEZING, # 9 Gm, 6 Refills, 08/17/21 9:51:00 EDT, [facility], 25, INHALE 2 PUFFS BY MOUTH 4 TIMES DAILY NEEDED FORWHEEZING, 162, cm, 08/03/21 16:59:00 EDT, Height, 1... Start Date: 08/17/21 Status: Ordered albuterol 0.083% inhalation solution 3 mL = 2.5 mg, Inhalation, Every 6 hours, PRN for wheezing, # 100 each, 5 Refills, Maintenance, 08/17/21 9:51:00 EDT, Solution, [facility] 1966, replaces previous Rx for albuterol-ipatropium [...] mL, 0 Refills, Maintenance, 03/17/22 15:45:00 EST, [facility], Partial fill upon patient request if the prescription is for a schedule II opioid drug., 163, cm, 03/17/22... Start Date: 03/17/22 Stop Date: 03/31/22 Status: Ordered Dexilant 60 mg oral delayed release capsule See Instructions, Take 1 capsule by mouth once daily, # 90 capsule, 0 Refills, 03/14/22 14:26:00 EST, [facility], 163, cm, 02/27/22 9:06:00 EST, Height, 128.2, kg, 02/05/22 12:22:00 EST, Dry Weight Start Date: 03/14/22 Status: Ordered Diflucan 150 mg oral tablet 1 tablet = 150 mg, By Mouth, Once, # 1 tablet, 0 Refills, Soft Stop, 03/01/22 15:59:00 EST, Tablet,[facility], Partial fill upon patient request [...] tablet, 11 Refills, Maintenance, 08/18/21 16:40:00EDT, Tablet, [facility], Partial fill upon patient request [...] 08/17/21 9:51:00 EDT, Route to Pharmacy Electronically, [id number], [facility], 162, cm, 08/03/21 16:59:00 EDT, Height, 110, kg, 08/03/21 1... Start Date: 08/17/21 Status: Ordered ibuprofen 800 mg oral tablet 800 mg, 1, tablet, By Mouth, Every 8 hours, PRN, not to exceed 3200 mg/day with food or milk, # 40 tablet, Refills 0, Tot. Refills 0, Maintenance, Pain , Moderate, 02/08/22 8:05:00 EST, Route to Pharmacy Electronically, [facility], Partial... Start Date: 02/08/22 Status: [...] Team Personnel Name: Nanci Melendez MD Position: [facility] Primary Care Physician Member Role: PCP Address: Address: [address] [place] [address]- Care Team Related Persons Name: SEAN RITCHIE Address: [address] Address: home [address] [place] [address] Name: DERRELL RITCHIE Address: home [address] [place] [address] Name: DERRELL RITCHIE Address: home [address] [facility] [address] [place] [address] Name: DERRELL RITCHIE Address: [address] [address] Name: SHEBA CANO Address: home [address] [place] [address] Name: DAYANNA CANO Address: home [address] [place] [address]
--- OUTSIDE RECORDS SUMMARY | 2024-02-22 11:43 | XMS_ITS | Continuity of Care Document ---
Author Organization [facility] Address [address] [place] [address]- Care Team Providers Care Endocrinology Teacher Name Role Phone Al DIEGO, Nanci Segovia Primary Care Physician [phone] Encounter [facility] Date(s): 09/03/20 - 10/03/20 [facility] [address] [place], [place] [address] Allergies, Adverse Reactions, Alerts Substance Reaction Severity [...] Virus Vaccine 11/21/89 Recor ded 1Result Comment: [facility]# [id number] PT. TOLERATED INJ. WITHOUT COMPLICATIONS....CO 2Result Comment: [facility]# [id number] PT. TOLERATED INJ. WITHOUT COMPLICATIONS...CO 3Result Comment: [04/06/2016] pt. tolerated inj. without complications...CO 4Result Comment: [04/14/2015] Measles mumps rubella titer Medications Advair Diskus 500 mcg-50 mcg inhalation powder 1, puffs, Inhalation, 2 times a day, # 1 each, Refills 12, Tot. Refills 12, Maintenance, 12/24/19 13:40:00 EDT, Route to Pharmacy Electronically, [id number], [facility] 1967, 161, cm, 06/12/19 8:56:00 EDT, Height, 106,... Start Date: 12/24/19 Status: Ordered Albuterol (Eqv-ProAir HFA) 90 mcg/inh inhalation aerosol 2 puffs, Inhalation, 4 times a day, PRN NEEDED FOR WHEEZING, # 18 Gm, 10 Refills, Maintenance, 06/07/20 14:34:00 EST, [facility] 1967, 50, INHALE 2 PUFFS BY MOUTH 4 TIMES DAILY NEEDED FORWHEEZING, 161, cm, 02/10/20 14:26:00 EST, Height, 1... Start Date: 06/07/20 Status: Ordered albuterol-ipratropium 3 mg-0.5 mg/3 ml inhalation solution 3 mL, Neb, 4 times a day, PRN shortness of breath, # 180 mL, 11 Refills, Maintenance, 06/18/20 9:36:00 EDT, Solution, [facility] 1967, 3 mL Neb 4 times a day,PRN:shortness of breath, 161, cm, 06/18/20 9:18:00 EDT, Height, 106, kg, 09/11/18 13:37... Start Date: 06/18/20 Status: Ordered Apri 0.15 mg-0.03 mg oral tablet 1 tablet, By Mouth, Daily, start first tablet today, # 1 pack/packet, 3 Refills, Maintenance, 09/10/20 10:08:00 EDT, [facility] 1966, Partial fill upon patient [...] 3 Refills, Maintenance, 12/24/19 13:41:00 EDT, ECCapsule, [facility] 1967, 161, cm, 06/12/19 8:56:00 [...] tablet, 11 Refills, Maintenance, 02/10/20 14:25:00 EST, [facility], 161, c... Start Date: [...] each, 11 Refills, Maintenance, 06/18/20 9:35:00 EDT, [facility] 1967, 161, cm, 219:18:00 EDT, [...] 07/09/20 16:28:00 EDT, Route to Pharmacy Electronically, [facility] 1966, Partial fill upon patient [...]
--- OUTSIDE RECORDS SUMMARY | 2024-02-22 11:43 | XMS_ITS | Continuity of Care Document ---
Author Organization [facility] ter Address [address] [place] [address]- Care Team Providers Care Classroom Technology Technician Name Role Phone Nanci Melendez MD Primary Care Physician [phone] Encounter [facility] Date(s): 01/17/21 - 02/17/[address] [address] Attending Physician: Jalyn Cabrera MD Allergies, Adverse [...] Vaccine 11/21/89 Recor ded 1Result Comment: [facility]# [id number] PT. TOLERATED INJ. WITHOUT COMPLICATIONS....CO 2Result Comment: [facility]# [id number] PT. TOLERATED INJ. WITHOUT COMPLICATIONS...CO 3Result Comment: [...] Gm, 10 Refills, Maintenance, 06/07/20 14:34:00 EST, [facility], 50, INHALE 2 PUFFS BY MOUTH 4 TIMES DAILY NEEDED FORWHEEZING, 161, cm, 02/10/20 14:26:00 EST, Height, 1... Start Date: 06/07/20 Status: Ordered albuterol-ipratropium 3 mg-0.5 mg/3 ml inhalation solution 3 mL, Neb, 4 times a day, PRN shortness of breath, # 180 mL, 11 Refills, Maintenance, 06/18/20 9:36:00 EDT, Solution, [facility], 3 mL Neb 4 times a day,PRN:shortness of breath, 161, cm, 06/18/20 9:18:00 EDT, Height, 106, kg, 09/11/18 13:37... Start Date: 06/18/20 Status: Ordered Apri 0.15 mg-0.03 mg oral tablet 1 tablet, By Mouth, Daily, start first tablet today, # 1 pack/packet, 3 Refills, Maintenance, 12/09/20 13:48:00 EDT, [facility], Partial fill upon [...] 0 Refills, Maintenance, 02/11/21 12:37:00 EST, ECCapsule, [facility], 163, cm, 01/01/21 10:10:00 EDT, Height Start Date: 02/11/21 Status: Ordered doxycycline hyclate 100 mg oral tablet 1 tablet = 100 mg, By Mouth, 2 times a day, # 28 tablet, 5 Refills, Maintenance, 12/31/20 8:23:00 EDT, [facility], Partial fill upon [...] each, Refills 5, Route to Pharmacy Electronically, [id number], [facility], 163, cm, 01/01/21 10:10:00 EDT, Height Start Date: 01/28/21 Status: Ordered ganirelix 250 mcg/0.5 ml subcutaneous injection 0.5 mL = 250 mcg, Subcutaneous Injection, Daily, # 5 each, 5 Refills, Acute 02/20/21 8:26:00 EST, 12/31/20 8:23:00 EDT, Solution, [facility], Partial fill upon patient request if theprescription is for a schedule II opioid drug., 161... Start Date: 12/31/20 Stop Date: 02/20/21 Status: Ordered Gonal-F 1050 units subcutaneous injection = 150 International_Units, Subcutaneous Injection, Daily, # 2 kit, 5 Refills, Maintenance, 218:23:00 EDT, [facility], Partial fill upon [...] 02/20/21 8:26:00 EST, 12/31/20 8:22:00 EDT, Powder, [facility], Partial fill upon [...] tablet, 11 Refills, Maintenance, 02/10/20 14:25:00 EST, [facility] 1967, 161, c... Start [...] each, 11 Refills, Maintenance, 06/18/20 9:35:00 EDT, [facility], 161, cm, 219:18:00 EDT, Height, 106, kg, 09/11/18 13:37:00 EDT... Start Date: 06/18/20 Status: Ordered oxyCODONE 5 mg oral tablet 5 mg, 1, tablet, By Mouth, Every 6 hours, PRN, # 8 tablet, Refills 0, Tot. Refills 0, Maintenance, Pain , Mild, 01/18/21 9:22:00 EDT, Route to Pharmacy Electronically, [facility], Partial fill upon patient request if the prescription is for... Start Date: 01/18/21 Status: Ordered Pregnyl 28212 u injectable powder for injection = 1,000 [...] 30 mL, 5 Refills, Maintenance, 02/03/21 11:55:00EDT, [facility], Partial fill upon patient request if the prescription is for a schedule II opioid drug., 163, cm, 01/01/21 10:10:00 E... Start Date: 02/03/21 Status: Ordered Prometrium 200 mg oral capsule See Instructions, vaginally 3 times a day, # 90 tablet, 5 Refills, Maintenance, 12/31/20 8:22:00 EDT, [facility], Partial fill upon [...] 01/18/21 9:22:00 EDT, Route to Pharmacy Electronically, [facility], Partial fill upon patient request if [...] patch, 5 Refills, Maintenance, 12/31/20 8:23:00 EDT, [facility], Partial fill upon patient request if the prescription is for a schedule II opio... Start Date: 12/31/20 Status: Ordered yes yes, See Instructions, # 2 each, Refills 5, Tot. Refills 5, Maintenance, [place] Capped Insulin Syringe for lupron administration, 12/31/20 [...]
--- OUTSIDE RECORDS SUMMARY | 2024-02-22 11:43 | XMS_ITS | Continuity of Care Document ---
Author Organization [facility] Address [address] [place] [address]- Care Team Providers Care Refrigerating Engineer Name Role Phone Nanci Melendez MD Primary Care Physician Encounter [facility] Date(s): 11/10/19 - 12/10/19 [facility] [address] [place] [address]- [facility] Attending Physician: Marely Fu Admitting Physician: [...] ded 1Result Comment: [facility]# [id number] PT. TOLERATED INJ. WITHOUT COMPLICATIONS....CO 2Result Comment: [facility]# [id number] PT. TOLERATED INJ. WITHOUT COMPLICATIONS...CO 3Result Comment: [04/06/2016] pt. tolerated inj. without complications...CO 4Result Comment: [04/14/2015] Measles mumps rubella titer Medications Advair Diskus 500 mcg-50 mcg inhalation powder 1, puffs, Inhalation, 2 times a day, # 60 Doses, Refills 12, Tot. Refills 12, Maintenance, 06/05/1910:25:22 EST, Route to Pharmacy Electronically, [id number], [facility] Start Date: 06/05/18 Status: Ordered albuterol 0.083% inhalation solution 3 mL = 2.5 mg, Inhalation, Every 6 hours, PRN for wheezing, # 60 each, 11 Refills, Maintenance, 06/20/19 9:26:00 EDT, Solution, [facility], 161, cm, 06/12/19 8:56:00 EDT, Height, 106, kg, 09/11/18 13:37:00 EDT, Dry Weight Start Date: 06/20/19 Status: Ordered albuterol-ipratropium 3 mg-0.5 mg/3 ml [...] Daily, # 90 capsule, 3 Refills, Maintenance, 06/12/19 9:48:00 EDT, EC Capsule, [facility], 161, cm, 06/12/19 8:56:00 EDT, Height, 106, kg, 09/11/18 13:37:00 EDT, Dry Weight Start Date: 06/12/19 Status: Ordered diclofenac sodium 75 mg oral delayed release tablet 1 tablet = 75 mg, By Mouth, 2 times a day, PRN for pain, TAKE WITH FOOD, # 28 tablet, 0 Refills, Maintenance, 11/10/19 9:12:00 EDT, Tablet, [facility], 161, cm, 06/12/19 8:56:00 EDT, Height, 106, kg, 09/11/18 13:37:00 EDT, Dry Weight Start Date: 11/10/19 Stop Date: 11/24/19 Status: Ordered Flonase 1 sprays, Daily, 0 [...] DAYS, # 15 each, 5 Refills, Maintenance, [facility], 161, cm, 01/20/19 11:38:00 EDT, Height, 106, kg, 09/11/18 13:37:00 EDT, Dry Weight Start Date: 05/20/19 Status: Ordered Ovidrel 250 mcg/0.5 mL subcutaneous [...] 15:55:00 EST, Aerosol, Route to Pharmacy Electronically, [id number], [facility], 161, cm, 01/20/19 11:38:00 EDT,... Start Date: 05/19/19 Status: Ordered ProAir HFA 90 mcg/inh inhalation aerosol with adapter 2, puffs, Inhalation, 4 times a day, Refills 0, Maintenance, 06/07/18 9:18:22 EST Start Date: 06/07/18 Status: Ordered simethicone 250 mg oral capsule [...]
--- OUTSIDE RECORDS SUMMARY | 2024-02-22 11:43 | XMS_ITS | Continuity of Care Document ---
Author Organization [facility] Address [address], [address]t [address] [place] [address]- Care Team Providers Care Manager Completions Name Role Phone Al DIEGO, Nanci Segovia Primary Care Physician [phone] Encounter [facility] Date(s): 05/07/20 - 06/06/20 [facility] [address], 4th [address] [place] [address] Allergies, Adverse Reactions, Alerts Substance Reaction [...] [facility]# [id number] PT. TOLERATED INJ. WITHOUT COMPLICATIONS....CO 2Result Comment: [facility]# [id number] PT. TOLERATED INJ. WITHOUT COMPLICATIONS...CO 3Result Comment: [04/06/2016] pt. tolerated inj. without complications...CO 4Result Comment: [04/14/2015] Measles mumps rubella titer Medications Advair Diskus 500 mcg-50 mcg inhalation powder 1, puffs, Inhalation, 2 times a day, # 1 each, Refills 12, Tot. Refills 12, Maintenance, 12/24/19 13:40:00 EDT, Route to Pharmacy Electronically, [id number], [facility], 161, cm, 06/12/19 8:56:00 EDT, Height, 106,... Start Date: 12/24/19 Status: Ordered albuterol 0.083% inhalation solution 3 mL = 2.5 mg, Inhalation, Every 6 hours, PRN for wheezing, # 60 each, 11 Refills, Maintenance, 12/24/19 13:40:00 EDT, Solution, [facility], 161, cm, 06/12/19 8:56:00 EDT, [...] Refills, Maintenance, 12/24/19 13:41:00 EDT, ECCapsule, [facility], 161, cm, 06/12/19 8:56:00 EDT, Height, 106, kg, 09/11/18 13:37:00 EDT, Dry Weight Start Date: 12/24/19 Status: Ordered diclofenac sodium 75 mg oral delayed release tablet 1 tablet = 75 mg, By Mouth, 2 times a day, PRN for pain, TAKE WITH FOOD, # 28 tablet, 1 Refills, Maintenance, 12/16/19 9:22:00 EDT, Tablet, [facility], 161, cm, 06/12/19 8:56:00 EDT, [...] tablet, 3 Refills, Maintenance, 02/09/20 17:27:00 EST, [facility], 161, cm, 06/12/19 8:56:00 EDT, [...] 11 Refills, Maintenance, 02/10/20 14:25:00 EST, [facility], 161, c... Start Date: 02/10/20 [...] each, 5 Refills, Maintenance, 12/24/19 13:58:00 EDT, [facility], 161, cm, 208:56:00 EDT, Height, [...] 13:40:00 EDT, Inhaler, Route to Pharmacy Electronically, [id number],[facility], 161, cm, 06/12/19 8:56:00 ED... Start Date: 12/24/19 Status: Ordered ProAir HFA 90 mcg/inh inhalation aerosol with adapter 2, puffs, Inhalation, 4 times a day, PRN, # 2 each, Refills 5, Tot. Refills 5, Maintenance, 05/19/19 15:55:00 EST, Aerosol, Route to Pharmacy Electronically, [id number], [facility], 161, cm, 01/20/19 11:38:00 EDT,... [...]
--- OUTSIDE RECORDS SUMMARY | 2024-02-22 11:43 | XMS_ITS | Continuity of Care Document ---
Author Organization [facility] Address [address] [facility], [address]t [address] [place] [address]- Care Team Providers Care Barrel Bander Name Role Phone Nanci Melendez MD Primary Care Physician [phone] Encounter [facility] Date(s): 03/02/23 - 04/01/23 [facility] [address], [address]th [address] [place] [address] Attending Physician: Marely Fu Admitting Physician: AdmMarely [...] Vaccine 11/21/89 Recor ded 1Result Comment: [facility]# [id number] PT. TOLERATED INJ. WITHOUT COMPLICATIONS....CO 2Result Comment: [facility]# [id number] PT. TOLERATED INJ. WITHOUT COMPLICATIONS...CO 3Result Comment: [04/06/2016] pt. tolerated inj. without complications...CO 4Result Comment: [04/14/2015] Measles mumps rubella titer Medications acetaminophen 325 mg oral tablet 650 mg, By Mouth, Every 4 hours, PRN, not to exceed 4000 mg/day, # 60 tablet, Refills 0, Tot. Refills 0, Maintenance, Pain , Mild, 02/08/22 8:05:00 EST, Route to Pharmacy Electronically, [facility], Partial fill upon patient request if the... Start Date: 02/08/22 Status: Ordered Albuterol (Eqv-ProAir HFA) 90 mcg/inh inhalation aerosol See Instructions, INHALE 2 PUFFS BY MOUTH 4 TIMES DAILY NEEDED FOR WHEEZING, # 9 Gm, 6 Refills, 08/17/21 9:51:00 EDT, [facility], 25, INHALE 2 [...] mL, 0 Refills, Maintenance, 03/17/22 15:45:00 EST, [facility], Partial fill upon patient request if the prescription is for a schedule II opioid drug., 163, cm, 03/17/22... Start Date: 03/17/22 Stop Date: 03/31/22 Status: Ordered Dexilant 60 mg oral delayed release capsule See Instructions, Take 1 capsule by mouth once daily, # 90 capsule, 0 Refills, 03/14/22 14:26:00 EST, [facility], 163, cm, 02/27/22 9:06:00 EST, Height, 128.2, kg, 02/05/22 12:22:00 EST, Dry Weight Start Date: 03/14/22 Status: Ordered Diflucan 150 mg oral tablet 1 tablet = 150 mg, By Mouth, Once, # 1 tablet, 0 Refills, Soft Stop, 03/01/22 15:59:00 EST, Tablet,[facility], Partial fill upon patient request [...] tablet, 11 Refills, Maintenance, 08/18/21 16:40:00EDT, Tablet, [facility], Partial fill upon patient request [...] 03/12/23 11:30:00 EST, Route to Pharmacy Electronically, [id number], [facility] #[id number], 163, cm, 03/02/23 13:11:00 EST, Height, 128.2, kg, 02/05/22 1... Start Date: 03/12/23 Status: Ordered ibuprofen 800 mg oral tablet 800 mg, 1, tablet, By Mouth, Every 8 hours, PRN, not to exceed 3200 mg/day with food or milk, # 40 tablet, Refills 0, Tot. Refills 0, Maintenance, Pain , Moderate, 02/08/22 8:05:00 EST, Route to Pharmacy Electronically, [facility], Partial... Start Date: [...] tablet, 5 Refills, Maintenance, 08/16/22 9:41:00 EDT, [id number], 163, cm, 05/01/22 14:15:00 EST, Height, 128.2, kg, 02/05/22 12:22:00 EST, Dry Weight Start Date: 08/16/22 Status: Ordered ondansetron 4 mg oral tablet See Instructions, TAKE 1 TABLET BY MOUTH EVERY 8 HOURS NEEDED FOR NAUSEA AND VOMITING FOR 5 DAYS, # 15 each, 11 Refills, Maintenance, 06/19/22 15:15:00 EDT, [facility]/pharmacy #[id number], 163, cm, 05/01/22 14:15:00 EST, Height, 128.2, kg, 02/05/22 12:22:00 ES... Start Date: 06/19/22 Status: Ordered Multivitamins By Mouth, Daily, 0 Refills, Maintenance, 06/05/18 11:27:06 EST Start Date: 06/05/18 Status: Ordered Ventolin HFA 108 mcg/inh inhalation aerosol with adapter 2 puffs, Inhalation, Every 4 hours, PRN for wheezing, # 8 Gm, 5 Refills, Maintenance, 03/12/23 11:35:00 EST, Aerosol, [facility]/pharmacy #[id number], Partial fill upon patient request [...] Team Personnel Name: Adela Sorto MD Position: [facility] MAGICIAN/ILLUSIONIST MD Member Role: Lifetime MAGICIAN/ILLUSIONIST Physician Address: Address: [address] [facility], [address] [place] [address]- Name: Nanci Melendez MD Position: [facility] Physician - Primary Care Member Role: PCP Address: Address: [address] [place] [address]- Care Team Related Persons Name: SEAN RITCHIE Address: [address] Address: [address] [place] [address] Name: DERRELL RITCHIE Address: home [address] [place] [address] Name: DERRELL RITCHIE Address: home [address] [place] [address] Name: DERRELL RITCHIE Address: home [address] [address] Name: SHEBA CANO Address: [address] [place] [address] Name: DAYANNA CANO Address: [address] [place] [address]
--- OUTSIDE RECORDS SUMMARY | 2024-02-22 11:43 | XMS_ITS | Continuity of Care Document ---
Author Organization [facility] ter Address [address] [place] [address]- Care Team Providers Care Floor Service Worker Spring Name Role Phone Nanci Melendez MD Primary Care Physician [phone] Encounter [facility] Date(s): 02/12/21 - 02/12/[address] [address] Discharge Disposition: A-D/C Home Attending Physician: Jalyn [...] 11/21/89 Recor ded 1Result Comment: [facility]# [id number] PT. TOLERATED INJ. WITHOUT COMPLICATIONS....CO 2Result Comment: [facility]# [id number] PT. TOLERATED INJ. WITHOUT COMPLICATIONS...CO 3Result Comment: [...] pack/packet, 3 Refills, Maintenance, 12/09/20 13:48:00 EDT, [facility], Partial [...] 0 Refills, Maintenance, 02/11/21 12:37:00 EST, ECCapsule, [facility], 163, cm, 01/01/21 10:10:00 EDT, Height Start Date: 02/11/21 Status: Ordered doxycycline hyclate 100 mg oral tablet 1 tablet = 100 mg, By Mouth, 2 times a day, # 28 tablet, 5 Refills, Maintenance, 12/31/20 8:23:00 EDT, [facility], Partial fill upon patient [...] each, Refills 5, Route to Pharmacy Electronically, [id number], [facility], 163, cm, 01/01/21 10:10:00 EDT, Height Start Date: 01/28/21 Status: Ordered ganirelix 250 mcg/0.5 ml subcutaneous injection 0.5 mL = 250 mcg, Subcutaneous Injection, Daily, # 5 each, 5 Refills, Acute 02/20/21 8:26:00 EST, 12/31/20 8:23:00 EDT, Solution, [facility], Partial fill upon patient request if theprescription is for a schedule II opioid drug., 161... Start Date: 12/31/20 Stop Date: 02/20/21 Status: Ordered Gonal-F 1050 units subcutaneous injection = 150 International_Units, Subcutaneous Injection, Daily, # 2 kit, 5 Refills, Maintenance, :23:00 EDT, [facility], Partial fill upon patient [...] 02/20/21 8:26:00 EST, 12/31/20 8:22:00 EDT, Powder, [facility], Partial fill upon patient [...] 01/18/21 9:22:00 EDT, Route to Pharmacy Electronically, [facility], Partial fill upon patient request if the prescription is for... Start Date: 01/18/21 Status: Ordered Pregnyl 91824 u injectable powder for injection = 1,000 [...] 30 mL, 5 Refills, Maintenance, 02/03/21 11:55:00EDT, [facility], Partial fill upon patient request if the prescription is for a schedule II opioid drug., 163, cm, 01/01/21 10:10:00 E... Start Date: 02/03/21 Status: Ordered Prometrium 200 mg oral capsule See Instructions, vaginally 3 times a day, # 90 tablet, 5 Refills, Maintenance, 12/31/20 8:22:00 EDT, [facility], Partial fill upon patient request if [...] EDT, Route to Pharmacy Electronically, [facility] 1966, Partial fill upon patient [...] patch, 5 Refills, Maintenance, 12/31/20 8:23:00 EDT, [facility], Partial fill upon patient request if the prescription is for a schedule II opio... Start Date: 12/31/20 Status: Ordered yes yes, See Instructions, # 2 each, Refills 5, Tot. Refills 5, Maintenance, [place] Capped Insulin Syringe for lupron administration, 12/31/20 [...] recent to oldest [Reference Range]: 1 2 Height 162 cm (02/12/21 5:07 PM) Weight 105.2 kg (02/12/21 5:08 PM) Oxygen Saturation [94-100 %] 100 % (02/12/21 5:08 PM) Pulse Rate [55-90 bpm] 64 bpm (02/12/21 5:08 PM) Blood Pressure [90-138/55-84 mm Hg] 111/ 78mm Hg (02/12/21 5:08 PM) Respiratory Rate [16-30 br/min] 18 br/mi n (02/12/21 5:08 PM) 18 br/min (02/12/21 5:07 PM) Temperature [96.8-100.4 DegF] 97.6 DegF (02/12/21 5:08 PM) Mode of Delivery (Oxygen) Room air (02/12/21 5:08 PM) Blood pressure sites Arm, right 1 (02/12/21 5:08 PM) Temperature Route Oral (02/12/21 5:08 PM) Dry Weight 105.2 kg (02/12/21 5:08 PM) 1Result Comment: right upper arm measured 31cm Social History Social History Type Response Smoking Status Never smoker; Tobacc o user in household: No entered on: 07/02/15 Sex
--- OUTSIDE RECORDS SUMMARY | 2024-02-22 11:43 | XMS_ITS | Continuity of Care Document ---
Author Organization [facility] Address [address] [place] [address]- Care Team Providers Care Manufacturing Accountant Name Role Phone Al DIEGO, Nanci Segovia Primary Care Physician [phone] Encounter [facility] Date(s): 09/19/21 - 10/19/21 [facility] [address], [address] [place], [place] [address] Allergies, Adverse Reactions, Alerts Substance [...] Comment: [facility]# [id number] PT. TOLERATED INJ. WITHOUT COMPLICATIONS....CO 2Result Comment: [facility]# [id number] PT. TOLERATED INJ. WITHOUT COMPLICATIONS...CO 3Result Comment: [04/06/2016] pt. tolerated inj. without complications...CO 4Result Comment: [04/14/2015] Measles mumps rubella titer Medications Albuterol (Eqv-ProAir HFA) 90 mcg/inh inhalation aerosol See Instructions, INHALE 2 PUFFS BY MOUTH 4 TIMES DAILY NEEDED FOR WHEEZING, # 9 Gm, 6 Refills, 08/17/21 9:51:00 EDT, [facility], 25, INHALE 2 PUFFS BY MOUTH 4 TIMES DAILY NEEDED FORWHEEZING, 162, cm, 08/03/21 16:59:00 EDT, Height, 1... Start Date: 08/17/21 Status: Ordered albuterol 0.083% inhalation solution 3 mL = 2.5 mg, Inhalation, Every 6 hours, PRN for wheezing, # 100 each, 5 Refills, Maintenance, 08/17/21 9:51:00 EDT, Solution, [facility] 1966, replaces previous Rx for [...] daily, # 90 capsule, 1 Refills, [facility], 162, cm, 09/16/21 15:34:00 [...] 11 Refills, Maintenance, 08/18/21 16:40:00EDT, Tablet, [facility], Partial fill upon patient [...] 08/17/21 9:51:00 EDT, Route to Pharmacy Electronically, [id number], [facility], 162, cm, 08/03/21 16:59:00 [...] 11 Refills, Maintenance, 03/16/21 11:27:00 EST, [facility], 162, c... Start Date: [...] 11 Refills, Maintenance, 06/18/20 9:35:00 EDT, [facility], 161, cm, :18:00 EDT, [...]
--- OUTSIDE RECORDS SUMMARY | 2024-02-22 11:43 | XMS_ITS | Continuity of Care Document ---
Author Organization [facility] [employer] [facility] Address [address], [address] [place] [address]- Care Team Providers Care Materials Assistant Name Role Phone Nanci Melendez MD Primary Care Physician Encounter [facility] Date(s): 03/21/21 - 04/20/21 [facility] [address] [place], [place] [address] Attending Physician: AdmMarely pineda Admitting Physician: AdmtrMarely Referring Physician: Admtr, Ar8 Allergies, Adverse Reactions, [...] 11/21/89 Recor ded 1Result Comment: [facility]# [id number] PT. TOLERATED INJ. WITHOUT COMPLICATIONS....CO 2Result Comment: [facility]# [id number] PT. TOLERATED INJ. WITHOUT COMPLICATIONS...CO 3Result Comment: [...] Gm, 10 Refills, Maintenance, 06/07/20 14:34:00 EST, [facility], 50, INHALE 2 PUFFS BY MOUTH 4 TIMES DAILY NEEDED FORWHEEZING, 161, cm, 02/10/20 14:26:00 EST, Height, 1... Start Date: 06/07/20 Status: Ordered albuterol 0.083% inhalation solution 3 mL = 2.5 mg, Inhalation, Every 6 hours, PRN for wheezing, # 25 each, 0 Refills, Maintenance, 04/04/21 12:33:00 EST, Solution, [facility] 1966, replaces previous Rx for albuterol-ipatropium solution, 162, cm, 03/10/21 14:17:00 EST, Height, 105.... Start Date: 04/04/21 Status: Ordered albuterol-ipratropium 3 mg-0.5 mg/3 ml inhalation solution 3 mL, Neb, 4 times a day, PRN shortness of breath, # 180 mL, 2 Refills, Maintenance, 04/04/21 8:55:00 EST, Solution, [facility], 3 mL Neb 4 times a day,PRN:shortness of breath, 162, cm, 03/10/21 14:17:00 EST, Height, 105.2, kg, 02/12/21 17:... Start Date: 04/04/21 Status: Ordered Apri 0.15 mg-0.03 mg oral tablet 1 tablet, By Mouth, Daily, start first tablet today, # 1 pack/packet, 3 Refills, Maintenance, 12/09/20 13:48:00 EDT, [facility] 1966, Partial fill upon patient [...] 0 Refills, Maintenance, 02/11/21 12:37:00 EST, ECCapsule, [facility], 163, cm, 01/01/21 10:10:00 EDT, Height Start Date: 02/11/21 Status: Ordered doxycycline hyclate 100 mg oral tablet 1 tablet = 100 mg, By Mouth, 2 times a day, # 28 tablet, 5 Refills, Maintenance, 12/31/20 8:23:00 EDT, [facility] [...] each, Refills 5, Route to Pharmacy Electronically, [id number], [facility], 163, cm, 01/01/21 10:10:00 EDT, Height Start Date: 01/28/21 Status: Ordered Gonal-F 1050 units subcutaneous injection = 150 International_Units, Subcutaneous Injection, Daily, # 2 kit, 5 Refills, Maintenance, 218:23:00 EDT, [facility] [...] EST, [facility], 162, c... Start Date: [...] [facility], 161, cm, 219:18:00 EDT, Height, 106, kg, 09/11/18 13:37:00 EDT... Start Date: 06/18/20 Status: Ordered oxyCODONE 5 mg oral tablet 5 mg, 1, tablet, By Mouth, Every 6 hours, PRN, # 8 tablet, Refills 0, Tot. Refills 0, Maintenance, Pain , Mild, 01/18/21 9:22:00 EDT, Route to Pharmacy Electronically, [facility] 1967, Partial fill [...] 04/25/21 8:56:00 EST, 04/04/21 8:56:00 EST, Tablet, [facility], Pa... Start Date: 04/04/21 Stop Date: 04/25/21 Status: Ordered Pregnyl 40313 u injectable powder for injection = 1,000 [...] 30 mL, 5 Refills, Maintenance, 02/03/21 11:55:00EDT, [facility], Partial fill upon patient request if the prescription is for a schedule II opioid drug., 163, cm, 01/01/21 10:10:00 E... Start Date: 02/03/21 Status: Ordered Prometrium 200 mg oral capsule See Instructions, vaginally 3 times a day, # 90 tablet, 5 Refills, Maintenance, 12/31/20 8:22:00 EDT, [facility], Partial fill upon patient request if the prescription is for a schedule II opioid drug., 161, cm, 10/12/20 10:38:00 EDT,... Start Date: 12/31/20 Status: Ordered Provera 10 mg oral tablet 10 mg, 1, tablet, By Mouth, Daily, # 10 tablet, Refills 0, Tot. Refills 0, Maintenance, 04/04/21 10:58:00 EST, Route to Pharmacy Electronically, [facility] 1966, Partial fill upon patient [...] 01/18/21 9:22:00 EDT, [facility], [facility], Partial fill upon patient request [...] patch, 5 Refills, Maintenance, 12/31/20 8:23:00 EDT, [facility], Partial fill upon patient request if the prescription is for a schedule II opio... Start Date: 12/31/20 Status: Ordered yes yes, See Instructions, # 2 each, Refills 5, Tot. Refills 5, Maintenance, [place] Capped Insulin Syringe for lupron administration, 12/31/20 [...]
--- OUTSIDE RECORDS SUMMARY | 2024-02-22 11:43 | XMS_ITS | Continuity of Care Document ---
Author Organization [facility] Address [address] [place] [address]- Care Team Providers Care Side Laster Staple Name Role Phone Nanci Melendez MD Primary Care Physician [phone] Encounter [facility] Date(s): 07/06/20 - 08/05/20 [facility] [address] [address] Attending Physician: Marely Fu Admitting Physician: Marely Fu Referring Physician: Marely Fu Allergies, Adverse Reactions, Alerts Substance Reaction Severity [...] Recor ded 1Result Comment: [facility]# [id number] PT. TOLERATED INJ. WITHOUT COMPLICATIONS....CO 2Result Comment: [facility]# [id number] PT. TOLERATED INJ. WITHOUT COMPLICATIONS...CO 3Result Comment: [04/06/2016] pt. tolerated inj. without complications...CO 4Result Comment: [04/14/2015] Measles mumps rubella titer Medications Advair Diskus 500 mcg-50 mcg inhalation powder 1, puffs, Inhalation, 2 times a day, # 1 each, Refills 12, Tot. Refills 12, Maintenance, 12/24/19 13:40:00 EDT, Route to Pharmacy Electronically, [id number], [facility], 161, cm, 06/12/19 8:56:00 EDT, Height, 106,... Start Date: 12/24/19 Status: Ordered Albuterol (Eqv-ProAir HFA) 90 mcg/inh inhalation aerosol 2 puffs, Inhalation, 4 times a day, PRN NEEDED FOR WHEEZING, # 18 Gm, 10 Refills, Maintenance, 06/07/20 14:34:00 EST, [facility], 50, INHALE 2 PUFFS BY MOUTH 4 TIMES DAILY NEEDED FORWHEEZING, 161, cm, 02/10/20 14:26:00 EST, Height, 1... Start Date: 06/07/20 Status: Ordered albuterol-ipratropium 3 mg-0.5 mg/3 ml inhalation solution 3 mL, Neb, 4 times a day, PRN shortness of breath, # 180 mL, 11 Refills, Maintenance, 06/18/20 9:36:00 EDT, Solution, [facility], 3 mL Neb [...] 3 Refills, Maintenance, 12/24/19 13:41:00 EDT, ECCapsule, [facility], 161, cm, 06/12/19 [...] tablet, 3 Refills, Maintenance, 06/08/20 8:28:00 EST, [facility], 161, cm, 02/10/20 14:26:00 [...] tablet, 11 Refills, Maintenance, 02/10/20 14:25:00 EST, [facility], 161, c... Start [...] each, 11 Refills, Maintenance, 06/18/20 9:35:00 EDT, [facility], 161, cm, 219:18:00 [...] 07/09/20 16:28:00 EDT, Route to Pharmacy Electronically, [facility], Partial fill upon [...]
--- OUTSIDE RECORDS SUMMARY | 2024-02-22 11:43 | XMS_ITS | Continuity of Care Document ---
Author Organization [facility] Address Unknown Care Team Providers Care Director Television News Name Role Phone Nanci Melendez MD Primary Care Physician [phone] Encounter [facility] Date(s): 01/16/21 - 01/23/21 [facility] Attending Physician: Jalyn Cabrera [...] Virus Vaccine 11/21/89 Recor ded 1Result Comment: [facility]# [id number] PT. TOLERATED INJ. WITHOUT COMPLICATIONS....CO 2Result Comment: [facility]# [id number] PT. TOLERATED INJ. WITHOUT COMPLICATIONS...CO 3Result Comment: [...] 12/24/19 13:40:00 EDT, Route to Pharmacy Electronically, [id number], [facility], 161, cm, 06/12/19 8:56:00 EDT, Height, 106,... Start Date: 12/24/19 Status: Ordered Albuterol (Eqv-ProAir HFA) 90 mcg/inh inhalation aerosol 2 puffs, Inhalation, 4 times a day, PRN NEEDED FOR WHEEZING, # 18 Gm, 10 Refills, Maintenance, 06/07/20 14:34:00 EST, [facility] 1967, 50, INHALE 2 PUFFS BY MOUTH 4 TIMES DAILY NEEDED FORWHEEZING, 161, cm, 02/10/20 14:26:00 EST, Height, 1... Start Date: 06/07/20 Status: Ordered albuterol-ipratropium 3 mg-0.5 mg/3 ml inhalation solution 3 mL, Neb, 4 times a day, PRN shortness of breath, # 180 mL, 11 Refills, Maintenance, 06/18/20 9:36:00 EDT, Solution, [facility], 3 mL Neb 4 times a day,PRN:shortness of breath, 161, cm, 06/18/20 9:18:00 EDT, Height, 106, kg, 09/11/18 13:37... Start Date: 06/18/20 Status: Ordered Apri 0.15 mg-0.03 mg oral tablet 1 tablet, By Mouth, Daily, start first tablet today, # 1 pack/packet, 3 Refills, Maintenance, 12/09/20 13:48:00 EDT, [facility], Partial fill upon patient [...] 3 Refills, Maintenance, 12/24/19 13:41:00 EDT, ECCapsule, [facility], 161, cm, 06/12/19 8:56:00 EDT, Height, 106, kg, 09/11/18 13:37:00 EDT, Dry Weight Start Date: 12/24/19 Status: Ordered doxycycline hyclate 100 mg oral tablet 1 tablet = 100 mg, By Mouth, 2 times a day, # 28 tablet, 5 Refills, Maintenance, 12/31/20 8:23:00 EDT, [facility], Partial fill upon [...] 02/20/21 8:26:00 EST, 12/31/20 8:23:00 EDT, Solution, [facility], Partial fill upon patient request if theprescription is for a schedule II opioid drug., 161... Start Date: 12/31/20 Stop Date: 02/20/21 Status: Ordered Gonal-F 1050 units subcutaneous injection = 150 International_Units, Subcutaneous Injection, Daily, # 2 kit, 5 Refills, Maintenance, 218:23:00 EDT, [facility], Partial fill upon [...] 02/20/21 8:26:00 EST, 12/31/20 8:22:00 EDT, Powder, [facility], Partial fill upon patient requestif [...] tablet, 11 Refills, Maintenance, 02/10/20 14:25:00 EST, [facility], 161, c... Start Date: [...] each, 11 Refills, Maintenance, 06/18/20 9:35:00 EDT, [facility], 161, cm, 219:18:00 EDT, Height, 106, kg, 09/11/18 13:37:00 EDT... Start Date: 06/18/20 Status: Ordered oxyCODONE 5 mg oral tablet 5 mg, 1, tablet, By Mouth, Every 6 hours, PRN, # 8 tablet, Refills 0, Tot. Refills 0, Maintenance, Pain , Mild, 01/18/21 9:22:00 EDT, Route to Pharmacy Electronically, [facility], Partial fill upon patient request if the prescription is for... Start Date: 01/18/21 Status: Ordered Pregnyl 53195 u injectable powder for injection = 1,000 units, Intramuscular, Once, For use as trigger shot. Use 3 mL of diluent to reconstitute powder. Draw and administer 0.3 mL of reconsituted pregnyl for total dose of 1000 units., # 1 kit, 5 Refills, Soft Stop, 12/31/20 8:24:00 EDT, [facility]... Start Date: 12/31/20 Status: Ordered Multivitamins By Mouth, Daily, 0 Refills, Maintenance, 06/05/18 11:27:06 EST Start Date: 06/05/18 Status: Ordered Prometrium 200 mg oral capsule See Instructions, vaginally 3 times a day, # 90 tablet, 5 Refills, Maintenance, 12/31/20 8:22:00 EDT, [facility], Partial fill upon [...] 01/18/21 9:22:00 EDT, Route to Pharmacy Electronically, [facility] 1966, Partial fill upon patient [...] patch, 5 Refills, Maintenance, 12/31/20 8:23:00 EDT, [facility], Partial fill upon patient request if the prescription is for a schedule II opio... Start Date: 12/31/20 Status: Ordered yes yes, See Instructions, # 2 each, Refills 5, Tot. Refills 5, Maintenance, [place] Capped Insulin Syringe for lupron administration, 12/31/20 [...]
--- OUTSIDE RECORDS SUMMARY | 2024-02-22 11:43 | XMS_ITS | Continuity of Care Document ---
Author Organization 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 [address] [place] [address]- Allergies, Adverse Reactions, Alerts Substance Reaction Severity [...] Comment: [facility]# [id number] PT. TOLERATED INJ. WITHOUT COMPLICATIONS....CO 2Result Comment: [facility]# [id number] PT. TOLERATED INJ. WITHOUT COMPLICATIONS...CO 3Result Comment: [04/06/2016] pt. tolerated inj. without complications...CO 4Result Comment: [04/14/2015] Measles mumps rubella titer Medications acetaminophen 325 mg oral tablet 650 mg, By Mouth, Every 4 hours, PRN, not to exceed 4000 mg/day, # 60 tablet, Refills 0, Tot. Refills 0, Maintenance, Pain , Mild, 02/08/22 8:05:00 EST, Route to Pharmacy Electronically, [facility], Partial fill upon patient request if the... Start Date: 02/08/22 Status: Ordered Albuterol (Eqv-ProAir HFA) 90 mcg/inh inhalation aerosol See Instructions, INHALE 2 PUFFS BY MOUTH 4 TIMES DAILY NEEDED FOR WHEEZING, # 9 Gm, 6 Refills, 08/17/21 9:51:00 EDT, [facility], 25, INHALE 2 PUFFS BY MOUTH 4 TIMES DAILY NEEDED FORWHEEZING, 162, cm, 08/03/21 16:59:00 EDT, Height, 1... Start Date: 08/17/21 Status: Ordered albuterol 0.083% inhalation solution 3 mL = 2.5 mg, Inhalation, Every 6 hours, PRN for wheezing, # 100 each, 5 Refills, Maintenance, 06/19/22 15:15:00 EDT, Solution, [facility] #[id number], replaces previous Rx for albuterol-ipatropium [...] mL, 0 Refills, Maintenance, 03/17/22 15:45:00 EST, [facility], Partial fill upon patient request if the prescription is for a schedule II opioid drug., 163, cm, 03/17/22... Start Date: 03/17/22 Stop Date: 03/31/22 Status: Ordered Dexilant 60 mg oral delayed release capsule See Instructions, Take 1 capsule by mouth once daily, # 90 capsule, 0 Refills, 03/14/22 14:26:00 EST, [facility], 163, cm, 02/27/22 9:06:00 EST, Height, 128.2, kg, 02/05/22 12:22:00 EST, Dry Weight Start Date: 03/14/22 Status: Ordered Diflucan 150 mg oral tablet 1 tablet = 150 mg, By Mouth, Once, # 1 tablet, 0 Refills, Soft Stop, 03/01/22 15:59:00 EST, Tablet,[facility], Partial fill upon patient request [...] tablet, 11 Refills, Maintenance, 08/18/21 16:40:00EDT, Tablet, [facility], Partial fill upon [...] 03/12/23 11:30:00 EST, Route to Pharmacy Electronically, [id number], [facility]/pharmacy #[id number], 163, cm, 03/02/23 13:11:00 EST, Height, 128.2, kg, 02/05/22 1... Start Date: 03/12/23 Status: Ordered ibuprofen 800 mg oral tablet 800 mg, 1, tablet, By Mouth, Every 8 hours, PRN, not to exceed 3200 mg/day with food or milk, # 40 tablet, Refills 0, Tot. Refills 0, Maintenance, Pain , Moderate, 02/08/22 8:05:00 EST, Route to Pharmacy Electronically, [facility], Partial... Start Date: 02/08/22 Status: Ordered [...] tablet, 5 Refills, Maintenance, 08/16/22 9:41:00 EDT, [id number], 163, cm, 05/01/22 14:15:00 EST, Height, 128.2, kg, 02/05/22 12:22:00 EST, Dry Weight Start Date: 08/16/22 Status: Ordered ondansetron 4 mg oral tablet See Instructions, TAKE 1 TABLET BY MOUTH EVERY 8 HOURS NEEDED FOR NAUSEA AND VOMITING FOR 5 DAYS, # 15 each, 11 Refills, Maintenance, 06/19/22 15:15:00 EDT, [facility]/pharmacy #[id number], 163, cm, 05/01/22 14:15:00 EST, Height, 128.2, kg, 02/05/22 12:22:00 ES... Start Date: 06/19/22 Status: Ordered Multivitamins By Mouth, Daily, 0 Refills, Maintenance, 06/05/18 11:27:06 EST Start Date: 06/05/18 Status: Ordered Ventolin HFA 108 mcg/inh inhalation aerosol with adapter 2 puffs, Inhalation, Every 4 hours, PRN for wheezing, # 8 Gm, 5 Refills, Maintenance, 03/12/23 11:35:00 EST, Aerosol, [facility]/pharmacy #[id number], Partial fill upon patient request [...] Team Personnel Name: Adela Sorto MD Position: [facility] CYLINDER STEAMER MD Member Role: Lifetime CYLINDER STEAMER Physician Address: Address: [address] [place] [address], [address] [facility] [place] [address]- Name: Nanci Melendez MD Position: [facility] Physician - Primary Care Member Role: PCP Address: Address: [address] [place] [address] [place] Care Team Related Persons Name: SEAN RITCHIE Address: [address] Address: [address] [place] [address] Name: DERRELL RITCHIE Address: home [address] [place] [address] Name: DERRELL RITCHIE Address: home [address] [place] [address] Name: DERRELL RITCHIE Address: home [address] [place] [address] Name: SHEBA CANO Address: home [address] [place] [address] Name: DAYANNA CANO Address: home [address] [place] [address]
--- OUTSIDE RECORDS SUMMARY | 2024-02-22 11:43 | XMS_ITS | Continuity of Care Document ---
Author Organization [facility] Address Unknown Care Team Providers Care Plumber'S Assistant Name Role Phone Nanci Melendez MD Primary Care Physician Encounter [facility] [place] Date(s): 02/01/21 - 03/03/21 [facility] Allergies, Adverse Reactions, Alerts [...] ded 1Result Comment: [facility]# [id number] PT. TOLERATED INJ. WITHOUT COMPLICATIONS....CO 2Result Comment: [facility]# [id number] PT. TOLERATED INJ. WITHOUT COMPLICATIONS...CO 3Result Comment: [...] Gm, 10 Refills, Maintenance, 06/07/20 14:34:00 EST, [facility] 1967, 50, INHALE 2 PUFFS BY MOUTH 4 TIMES DAILY NEEDED FORWHEEZING, 161, cm, 02/10/20 14:26:00 EST, Height, 1... Start Date: 06/07/20 Status: Ordered albuterol-ipratropium 3 mg-0.5 mg/3 ml inhalation solution 3 mL, Neb, 4 times a day, PRN shortness of breath, # 180 mL, 11 Refills, Maintenance, 06/18/20 9:36:00 EDT, Solution, [facility], 3 mL Neb 4 times a day,PRN:shortness of breath, 161, cm, 06/18/20 9:18:00 EDT, Height, 106, kg, 09/11/18 13:37... Start Date: 06/18/20 Status: Ordered Apri 0.15 mg-0.03 mg oral tablet 1 tablet, By Mouth, Daily, start first tablet today, # 1 pack/packet, 3 Refills, Maintenance, 12/09/20 13:48:00 EDT, [facility], Partial fill upon [...] 0 Refills, Maintenance, 02/11/21 12:37:00 EST, ECCapsule, [facility], 163, cm, 01/01/21 10:10:00 EDT, Height Start Date: 02/11/21 Status: Ordered doxycycline hyclate 100 mg oral tablet 1 tablet = 100 mg, By Mouth, 2 times a day, # 28 tablet, 5 Refills, Maintenance, 12/31/20 8:23:00 EDT, [facility], Partial fill upon patient [...] each, Refills 5, Route to Pharmacy Electronically, [id number], [facility] 1967, 163, cm, 01/01/21 10:10:00 EDT, Height Start Date: 01/28/21 Status: Ordered Gonal-F 1050 units subcutaneous injection = 150 International_Units, Subcutaneous Injection, Daily, # 2 kit, 5 Refills, Maintenance, 218:23:00 EDT, [facility], Partial fill upon patient [...] [facility], 161, cm, :18:00 EDT, Height, 106, kg, 09/11/18 13:37:00 EDT... Start Date: 06/18/20 Status: Ordered oxyCODONE 5 mg oral tablet 5 mg, 1, tablet, By Mouth, Every 6 hours, PRN, # 8 tablet, Refills 0, Tot. Refills 0, Maintenance, Pain , Mild, 01/18/21 9:22:00 EDT, Route to Pharmacy Electronically, [facility], Partial fill upon patient request if the prescription is for... Start Date: 01/18/21 Status: Ordered Pregnyl 35042 u injectable powder for injection = 1,000 units, Intramuscular, Once, For use as trigger shot. Use 3 mL of diluent to reconstitute powder. Draw and administer 0.3 mL of reconsituted pregnyl for total dose of 1000 units., # 1 kit, 5 Refills, Soft Stop, 12/31/20 8:24:00 EDT, [facility]... Start Date: 12/31/20 Status: Ordered Multivitamins By Mouth, Daily, 0 Refills, Maintenance, 06/05/18 11:27:06 EST Start Date: 06/05/18 Status: Ordered progesterone 50 mg/mL intramuscular solution 50mg/ml 1 ml (sesame oil), Intramuscular, Daily, # 30 mL, 5 Refills, Maintenance, 02/03/21 11:55:00EDT, [facility], Partial fill upon patient request if the prescription is for a schedule II opioid drug., 163, cm, 01/01/21 10:10:00 E... Start Date: 02/03/21 Status: Ordered Prometrium 200 mg oral capsule See Instructions, vaginally 3 times a day, # 90 tablet, 5 Refills, Maintenance, 12/31/20 8:22:00 EDT, [facility], Partial fill upon patient request [...] 01/18/21 9:22:00 EDT, Route to Pharmacy Electronically, [facility] 1966, Partial fill upon [...] patch, 5 Refills, Maintenance, 12/31/20 8:23:00 EDT, [facility], Partial fill upon patient request if the prescription is for a schedule II opio... Start Date: 12/31/20 Status: Ordered yes yes, See Instructions, # 2 each, Refills 5, Tot. Refills 5, Maintenance, [place] Capped Insulin Syringe for lupron administration, 12/31/20 [...]
--- OUTSIDE RECORDS SUMMARY | 2024-02-22 11:43 | XMS_ITS | Continuity of Care Document ---
Author Organization [facility] [employer] [facility] Address [address] [place] [address]- Care Team Providers Care Upholsterer Outside Name Role Phone Nanci Melendez MD Primary Care Physician Encounter [facility] Date(s): 08/05/21 - 09/04/21 [facility] [employer] [facility] [address] [place], [place] [address] Allergies, Adverse Reactions, Alerts Substance Reaction Severity [...] 1Result Comment: [facility]# [id number] PT. TOLERATED INJ. WITHOUT COMPLICATIONS....CO 2Result Comment: [facility]# [id number] PT. TOLERATED INJ. WITHOUT COMPLICATIONS...CO 3Result Comment: [04/06/2016] pt. tolerated inj. without complications...CO 4Result Comment: [04/14/2015] Measles mumps rubella titer Medications Albuterol (Eqv-ProAir HFA) 90 mcg/inh inhalation aerosol See Instructions, INHALE 2 PUFFS BY MOUTH 4 TIMES DAILY NEEDED FOR WHEEZING, # 9 Gm, 6 Refills, 08/17/21 9:51:00 EDT, [facility], 25, INHALE 2 PUFFS BY MOUTH 4 TIMES DAILY NEEDED FORWHEEZING, 162, cm, 08/03/21 16:59:00 EDT, Height, 1... Start Date: 08/17/21 Status: Ordered albuterol 0.083% inhalation solution 3 mL = 2.5 mg, Inhalation, Every 6 hours, PRN for wheezing, # 100 each, 5 Refills, Maintenance, 08/17/21 9:51:00 EDT, Solution, [facility], replaces previous Rx for albuterol-ipatropium [...] tablet, 11 Refills, Maintenance, 08/18/21 16:40:00EDT, Tablet, [facility], Partial fill upon patient request [...] 08/17/21 9:51:00 EDT, Route to Pharmacy Electronically, [id number], [facility], 162, cm, 08/03/21 16:59:00 EDT, [...] [facility], 161, cm, :18:00 EDT, Height, [...]
--- OUTSIDE RECORDS SUMMARY | 2024-02-22 11:43 | XMS_ITS | Continuity of Care Document ---
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 TOLERATED INJ. WITHOUT COMPLICATIONS....CO 2Result Comment: [facility]# [id number] PT. TOLERATED INJ. WITHOUT COMPLICATIONS...CO 3Result Comment: [04/06/2016] pt. tolerated inj. without complications...CO 4Result Comment: [04/14/2015] Measles mumps rubella titer Medications Advair Diskus 500 mcg-50 mcg inhalation powder 1, puffs, Inhalation, 2 times a day, # 1 each, Refills 12, Tot. Refills 12, Maintenance, 12/24/19 13:40:00 EDT, Route to Pharmacy Electronically, [id number], [facility], 161, cm, 06/12/19 8:56:00 EDT, Height, 106,... Start Date: 12/24/19 Status: Ordered Albuterol (Eqv-ProAir HFA) 90 mcg/inh inhalation aerosol 2 puffs, Inhalation, 4 times a day, PRN NEEDED FOR WHEEZING, # 18 Gm, 10 Refills, Maintenance, 06/07/20 14:34:00 EST, [facility], 50, INHALE 2 PUFFS BY MOUTH 4 TIMES DAILY NEEDED FORWHEEZING, 161, cm, 02/10/20 14:26:00 EST, Height, 1... Start Date: 06/07/20 Status: Ordered albuterol-ipratropium 3 mg-0.5 mg/3 ml inhalation solution 3 mL, Neb, 4 times a day, PRN shortness of breath, # 180 mL, 11 Refills, Maintenance, 06/18/20 9:36:00 EDT, Solution, [facility], 3 mL Neb [...] 3 Refills, Maintenance, 12/24/19 13:41:00 EDT, ECCapsule, [facility], 161, cm, 06/12/19 [...] tablet, 3 Refills, Maintenance, 06/08/20 8:28:00 EST, [facility], 161, cm, 02/10/20 [...] tablet, 11 Refills, Maintenance, 02/10/20 14:25:00 EST, [facility], 161, c... Start [...] each, 11 Refills, Maintenance, 06/18/20 9:35:00 EDT, [facility], 161, cm, 219:18:00 [...]
--- OUTSIDE RECORDS SUMMARY | 2024-02-22 11:43 | XMS_ITS | Continuity of Care Document ---
Author Organization [facility] [employer] Address [address] [facility], [address] [place] [address]- Care Team Providers Care Patient Access Name Role Phone Nanci Melendez MD Primary Care Physician [place] [facility] [place](s[place] 09/28/21 - 10/28/21 [facility] Susanenrique SosaI-DISPO[facility] [employer] [address] [facility], [address] [place] [address]- Allergies, Adverse Reactions, Alerts Substance Reaction Severity [...] 11/21/89 Recor ded 1Result Comment: [facility]# [id number] PT. TOLERATED INJ. WITHOUT COMPLICATIONS....CO 2Result Comment: [facility]# [id number] PT. TOLERATED INJ. WITHOUT COMPLICATIONS...CO 3Result Comment: [04/06/2016] pt. tolerated inj. without complications...CO 4Result Comment: [04/14/2015] Measles mumps rubella titer Medications Albuterol (Eqv-ProAir HFA) 90 mcg/inh inhalation aerosol See Instructions, INHALE 2 PUFFS BY MOUTH 4 TIMES DAILY NEEDED FOR WHEEZING, # 9 Gm, 6 Refills, 08/17/21 9:51:00 EDT, [facility], 25, INHALE 2 PUFFS BY MOUTH 4 TIMES DAILY NEEDED FORWHEEZING, 162, cm, 08/03/21 16:59:00 EDT, Height, 1... Start Date: 08/17/21 Status: Ordered albuterol 0.083% inhalation solution 3 mL = 2.5 mg, Inhalation, Every 6 hours, PRN for wheezing, # 100 each, 5 Refills, Maintenance, 08/17/21 9:51:00 EDT, Solution, [facility], replaces previous Rx for albuterol-ipatropium [...] once daily, # 90 capsule, 1 Refills, [facility], 162, cm, 09/16/21 15:34:00 EDT, [...] tablet, 11 Refills, Maintenance, 08/18/21 16:40:00EDT, Tablet, [facility], Partial fill upon [...] 08/17/21 9:51:00 EDT, Route to Pharmacy Electronically, [id number], [facility], 162, cm, 08/03/21 [...] tablet, 11 Refills, Maintenance, 03/16/21 11:27:00 EST, [facility], 162, c... Start [...] each, 11 Refills, Maintenance, 06/18/20 9:35:00 EDT, [facility], 161, cm, 219:18:00 [...]
--- OUTSIDE RECORDS SUMMARY | 2024-02-22 11:43 | XMS_ITS | Continuity of Care Document ---
Author Organization [facility] Address [address] [place] [address], [address] [address]- Care Team Providers Care Geosciences Associate Professor Name Role Phone Nanci Melendez MD Primary Care Physician En[place] [facility] [place] Date(s): 08/18/21 - 08/25/21 [facility] Susanenrique [facility] [address] [facility], [address] [place], [place] [address] Attending Physician: Emerson Eid MD Referring Physician: Nanci Melendez MD Allergies, [...] Virus Vaccine 11/21/89 Recor ded 1Result Comment: [facility]# [id number] PT. TOLERATED INJ. WITHOUT COMPLICATIONS....CO 2Result Comment: [facility]# [id number] PT. TOLERATED INJ. WITHOUT COMPLICATIONS...CO 3Result Comment: [04/06/2016] pt. tolerated inj. without complications...CO 4Result Comment: [04/14/2015] Measles mumps rubella titer Medications Albuterol (Eqv-ProAir HFA) 90 mcg/inh inhalation aerosol See Instructions, INHALE 2 PUFFS BY MOUTH 4 TIMES DAILY NEEDED FOR WHEEZING, # 9 Gm, 6 Refills, 08/17/21 9:51:00 EDT, [facility], 25, INHALE 2 PUFFS BY MOUTH 4 TIMES DAILY NEEDED FORWHEEZING, 162, cm, 08/03/21 16:59:00 EDT, Height, 1... Start Date: 08/17/21 Status: Ordered albuterol 0.083% inhalation solution 3 mL = 2.5 mg, Inhalation, Every 6 hours, PRN for wheezing, # 100 each, 5 Refills, Maintenance, 08/17/21 9:51:00 EDT, Solution[facility], replaces previous Rx for albuterol-ipatropium [...] tablet, 11 Refills, Maintenance, 08/18/21 16:40:00EDT, Tablet, [facility], Partial fill upon patient request [...] 08/17/21 9:51:00 EDT, Route to Pharmacy Electronically, [id number], [facility], 162, cm, [...] tablet, 11 Refills, Maintenance, 03/16/21 11:27:00 EST, [facility], 162, c... [...] each, 11 Refills, Maintenance, 06/18/20 9:35:00 EDT, [facility], 161, cm, :18:00 [...] Active Sleep apnea(Confirmed) Active Fatty liver(Confirmed) Active Procedures Procedure Date Related Diagnosis Body Site Status Laparoscopic cholecystectomy 04/21/16 Completed Vital Signs Most recent to oldest [Reference Range]: 1 Height 162 cm (08/18/21 1:09 PM) Weight 107.27 kg (08/18/21 1:09 PM) Body Mass Index [18.5-24.99] 40.87 *>HHI* (08/18/21 1:09 PM) Blood Pressure [90-138/55-84 mm Hg] 100/ 60mm Hg (08/18/21 1:09 PM) Blood pressure sites Arm, left (08/18/21 1:09 PM) Weight Obtained Via Standing scale (08/18/21 1:09 PM) Social History Social History Type Response Smoking Status Never smoker; Tobacc o user in household: No entered on: 07/02/15 Sex
--- OUTSIDE RECORDS SUMMARY | 2024-02-22 11:43 | XMS_ITS | Continuity of Care Document ---
Author Organization [facility] Address [address] [facility], [address] [place] [address]- Care Team Providers Care Auto Electrical Technician Name Role Phone Nanci Melendez MD Primary Care Physician [phone] Encounter [facility] [place] Date(s): 08/10/21 - 09/09/21 [facility] Susanenrique SosaMiniBanda[facility] [address] [facility], [address] [place], [place] [address] Allergies, Adverse Reactions, Alerts Substance Reaction [...] ded 1Result Comment: [facility]# [id number] PT. TOLERATED INJ. WITHOUT COMPLICATIONS....CO 2Result Comment: [facility]# [id number] PT. TOLERATED INJ. WITHOUT COMPLICATIONS...CO 3Result Comment: [04/06/2016] pt. tolerated inj. without complications...CO 4Result Comment: [04/14/2015] Measles mumps rubella titer Medications Albuterol (Eqv-ProAir HFA) 90 mcg/inh inhalation aerosol See Instructions, INHALE 2 PUFFS BY MOUTH 4 TIMES DAILY NEEDED FOR WHEEZING, # 9 Gm, 6 Refills, 08/17/21 9:51:00 EDT, [facility], 25, INHALE 2 PUFFS BY MOUTH 4 TIMES DAILY NEEDED FORWHEEZING, 162, cm, 08/03/21 16:59:00 EDT, Height, 1... Start Date: 08/17/21 Status: Ordered albuterol 0.083% inhalation solution 3 mL = 2.5 mg, Inhalation, Every 6 hours, PRN for wheezing, # 100 each, 5 Refills, Maintenance, 08/17/21 9:51:00 EDT, Solution, [facility], replaces previous Rx for albuterol-ipatropium [...] tablet, 11 Refills, Maintenance, 08/18/21 16:40:00EDT, Tablet, [facility], Partial fill upon patient request [...] 08/17/21 9:51:00 EDT, Route to Pharmacy Electronically, [id number], [facility], 162, cm, 08/03/21 [...] tablet, 11 Refills, Maintenance, 03/16/21 11:27:00 EST, [facility], 162, c... Start [...] each, 11 Refills, Maintenance, 06/18/20 9:35:00 EDT, [facility], 161, cm, :18:00 [...]
--- OUTSIDE RECORDS SUMMARY | 2024-02-22 11:43 | XMS_ITS | Continuity of Care Document ---
Author Organization [facility] Address [address] [facility], [address] [place] [address]- Care Team Providers Care Nurse Reviewer Name Role Phone Nanci Melendez MD Primary Care Physician En[facility] [place] Date(s): 03/01/22 - 03/31/22 [facility] [address] [facility], [address] [place], [place] [address] Allergies, Adverse Reactions, Alerts Substance [...] Vaccine 11/21/89 Recor ded 1Result Comment: [facility]# [id number] PT. TOLERATED INJ. WITHOUT COMPLICATIONS....CO 2Result Comment: [facility]# [id number] PT. TOLERATED INJ. WITHOUT COMPLICATIONS...CO 3Result Comment: [04/06/2016] pt. tolerated inj. without complications...CO 4Result Comment: [04/14/2015] Measles mumps rubella titer Medications acetaminophen 325 mg oral tablet 650 mg, By Mouth, Every 4 hours, PRN, not to exceed 4000 mg/day, # 60 tablet, Refills 0, Tot. Refills 0, Maintenance, Pain , Mild, 02/08/22 8:05:00 EST, [facility], [facility], Partial fill upon patient request if the... Start Date: 02/08/22 Status: Ordered Albuterol (Eqv-ProAir HFA) 90 mcg/inh inhalation aerosol See Instructions, INHALE 2 PUFFS BY MOUTH 4 TIMES DAILY NEEDED FOR WHEEZING, # 9 Gm, 6 Refills, 08/17/21 9:51:00 EDT, [facility], 25, INHALE 2 PUFFS BY MOUTH 4 TIMES DAILY NEEDED FORWHEEZING, 162, cm, 08/03/21 16:59:00 EDT, Height, 1... Start Date: 08/17/21 Status: Ordered albuterol 0.083% inhalation solution 3 mL = 2.5 mg, Inhalation, Every 6 hours, PRN for wheezing, # 100 each, 5 Refills, Maintenance, 08/17/21 9:51:00 EDT, [facility], [facility], replaces previous Rx for albuterol-ipatropium [...] mL, 0 Refills, Maintenance, 03/17/22 15:45:00 EST, [facility], Partial fill upon patient request if the prescription is for a schedule II opioid drug., 163, cm, 03/17/22... Start Date: 03/17/22 Stop Date: 03/31/22 Status: Ordered Dexilant 60 mg oral delayed release capsule See Instructions, Take 1 capsule by mouth once daily, # 90 capsule, 0 Refills, 03/14/22 14:26:00 EST, [facility], 163, cm, 02/27/22 9:06:00 EST, Height, 128.2, kg, 02/05/22 12:22:00 EST, Dry Weight Start Date: 03/14/22 Status: Ordered Diflucan 150 mg oral tablet 1 tablet = 150 mg, By Mouth, Once, # 1 tablet, 0 Refills, Soft Stop, 03/01/22 15:59:00 EST, [facility], Partial fill upon patient request [...] tablet, 11 Refills, Maintenance, 08/18/21 16:40:00EDT, Tablet, [facility], Partial fill upon patient [...] 08/17/21 9:51:00 EDT, Route to Pharmacy Electronically, [id number], [facility] 1967, 162, cm, 08/03/21 16:59:00 EDT, Height, 110, kg, 08/03/21 1... Start Date: 08/17/21 Status: Ordered ibuprofen 800 mg oral tablet 800 mg, 1, tablet, By Mouth, Every 8 hours, PRN, not to exceed 3200 mg/day with food or milk, # 40 tablet, Refills 0, Tot. Refills 0, Maintenance, Pain , Moderate, 02/08/22 8:05:00 EST, Route to Pharmacy Electronically, [facility], Partial... Start Date: 02/08/22 [...] Team Personnel Name: Nanci Melendez MD Position: [facility] Primary Care Physician Member Role: PCP Address: Address: [address] [place] [address]- Care Team Related Persons Name: SEAN RITCHIE Address: [address] Address: home [address] [place] [address] [place] Name: DERRELL RITCHIE Address: home [address] [place] [address] Name: DERRELL RITCHIE Address: [address] [address] Name: DERRELL RITCHIE Address: [address] [address] Name: SHEBA CANO Address: home [address] [place] [address] Name: DAYANNA CANO Address: [address] [place] [address]
--- OUTSIDE RECORDS SUMMARY | 2024-02-22 11:43 | XMS_ITS | Continuity of Care Document ---
Author Organization [facility] Hina [facility] Address [address] [place] [address], [place] [address]- Care Team Providers Care Superintendent Stations Name Role Phone Nanci Melendez MD Primary Care Physician Encounter [facility] Date(s): 02/13/22 - 02/20/22 [facility] Sosa[facility] [address] [facility], [address] [place] [address]- Attending Physician: Adela Sorto MD Referring Physician: Lucie Fox MD Allergies, Adverse Reactions, Alerts Substance Reaction [...] Vaccine 11/21/89 Recor ded 1Result Comment: [facility]# [id number] PT. TOLERATED INJ. WITHOUT COMPLICATIONS....CO 2Result Comment: [facility]# [id number] PT. TOLERATED INJ. WITHOUT COMPLICATIONS...CO 3Result Comment: [04/06/2016] pt. tolerated inj. without complications...CO 4Result Comment: [04/14/2015] Measles mumps rubella titer Medications acetaminophen 325 mg oral tablet 650 mg, By Mouth, Every 4 hours, PRN, not to exceed 4000 mg/day, # 60 tablet, Refills 0, Tot. Refills 0, Maintenance, Pain , Mild, 02/08/22 8:05:00 EST, [facility], Partial fill upon patient request if the... Start Date: 02/08/22 Status: Ordered Albuterol (Eqv-ProAir HFA) 90 mcg/inh inhalation aerosol See Instructions, INHALE 2 PUFFS BY MOUTH 4 TIMES DAILY NEEDED FOR WHEEZING, # 9 Gm, 6 Refills, 08/17/21 9:51:00 EDT, [facility], 25, INHALE 2 PUFFS BY MOUTH 4 TIMES DAILY NEEDED FORWHEEZING, 162, cm, 08/03/21 16:59:00 EDT, Height, 1... Start Date: 08/17/21 Status: Ordered albuterol 0.083% inhalation solution 3 mL = 2.5 mg, Inhalation, Every 6 hours, PRN for wheezing, # 100 each, 5 Refills, Maintenance, 08/17/21 9:51:00 EDT, Solution, [facility] 1966, replaces previous Rx for [...] once daily, # 90 capsule, 1 Refills, [facility], 162, cm, 09/16/21 15:34:00 [...] tablet, 11 Refills, Maintenance, 08/18/21 16:40:00EDT, Tablet, [facility], Partial fill upon [...] 08/17/21 9:51:00 EDT, Route to Pharmacy Electronically, [id number], [facility], 162, cm, 08/03/21 16:59:00 EDT, Height, 110, kg, 08/03/21 1... Start Date: 08/17/21 Status: Ordered ibuprofen 800 mg oral tablet 800 mg, 1, tablet, By Mouth, Every 8 hours, PRN, not to exceed 3200 mg/day with food or milk, # 40 tablet, Refills 0, Tot. Refills 0, Maintenance, Pain , Moderate, 02/08/22 8:05:00 EST, Route to Pharmacy Electronically, [facility], Partial... Start Date: 02/08/22 [...] Care Physician Member Role: PCP Address: Address: [address] [place] [address]- Care Team Related Persons Name: SEAN RITCHIE Address: Address: home [address] [place] [address] Name: DERRELL RITCHIE Address: home [address] [facility] [address] [place] [address] Name: DERRELL RITCHIE Address: home [address] [facility] [address] [place] [address] Name: DERRELL RITCHIE Address: home [address] [facility] [facility] [address] [place] [address] Name: SHEBA CANO Address: home [address] [place] [address] Name: DAYANNA CANO Address: [address] [place] [address]
--- OUTSIDE RECORDS SUMMARY | 2024-02-22 11:43 | XMS_ITS | Continuity of Care Document ---
Author Organization [facility] Address [address] [place] [address]- Care Team Providers Care Supplier Quality Manager Name Role Phone Nanci Melendez MD Primary Care Physician [place] [facility] [place]18[place]20 - 06/25/20 [facility] [address] [place] [address]- Encounter Diagnosis Asthma(Discharge Diagnosis) - 06/18/20 GERD (gastroesophageal reflux disease)(Discharge Diagnosis) - 06/18/20 Gastroparesis(Discharge Diagnosis) - 06/18/20 Routine medical exam(Discharge Diagnosis) - 06/18/20 Sleep apnea(Discharge Diagnosis) - 06/18/20 Attending Physician: Nanci Melendez MD Allergies, Adverse Reactions, [...] Vaccine 11/21/89 Recor ded 1Result Comment: [facility]# [id number] PT. TOLERATED INJ. WITHOUT COMPLICATIONS....CO 2Result Comment: [facility]# [id number] PT. TOLERATED INJ. WITHOUT COMPLICATIONS...CO 3Result Comment: [04/06/2016] pt. tolerated inj. without complications...CO 4Result Comment: [04/14/2015] Measles mumps rubella titer Medications Advair Diskus 500 mcg-50 mcg inhalation powder 1, puffs, Inhalation, 2 times a day, # 1 each, Refills 12, Tot. Refills 12, Maintenance, 12/24/19 13:40:00 EDT, Route to Pharmacy Electronically, [id number], [facility], 161, cm, 06/12/19 8:56:00 EDT, Height, 106,... Start Date: 12/24/19 Status: Ordered Albuterol (Eqv-ProAir HFA) 90 mcg/inh inhalation aerosol 2 puffs, Inhalation, 4 times a day, PRN NEEDED FOR WHEEZING, # 18 Gm, 10 Refills, Maintenance, 06/07/20 14:34:00 EST, [facility], 50, INHALE 2 PUFFS BY MOUTH 4 TIMES DAILY NEEDED FORWHEEZING, 161, cm, 02/10/20 14:26:00 EST, Height, 1... Start Date: 06/07/20 Status: Ordered albuterol-ipratropium 3 mg-0.5 mg/3 ml inhalation solution 3 mL, Neb, 4 times a day, PRN shortness of breath, # 180 mL, 11 Refills, Maintenance, 06/18/20 9:36:00 EDT, Solution, [facility], 3 mL Neb [...] 3 Refills, Maintenance, 12/24/19 13:41:00 EDT, ECCapsule, [facility], 161, cm, 06/12/19 [...] tablet, 3 Refills, Maintenance, 06/08/20 8:28:00 EST, [facility], 161, cm, 02/10/20 [...] tablet, 11 Refills, Maintenance, 02/10/20 14:25:00 EST, [facility], 161, c... Start [...] Active Sleep apnea(Confirmed) Active Fatty liver(Confirmed) Active Diagnosis Diagnosis Type Effective Dates Health Status Clinical Service Informant Asthma Discharge Diagnosis 06/18/20 GERD (gastroesophageal reflux disease) Discharge Diagnosis 06/18/20 Gastroparesis Discharge Diagnosis 06/18/20 Routine medical exam Discharge Diagnosis 06/18/20 Sleep apnea Discharge Diagnosis 06/18/20 Vital Signs Most recent to oldest [Reference Range]: 1 Height 161 cm (06/18/20 9:18 AM) Weight 109.1 kg (06/18/20 9:18 AM) Oxygen Saturation [94-100 %] 99 % (06/18/20 9:18 AM) Pulse Rate [55-90 bpm] 82 bpm (06/18/20 9:18 AM) Body Mass Index [18.5-24.99] 42.09 *>HHI* (06/18/20 9:18 AM) Blood Pressure [90-138/55-84 mm Hg] 100/ 60mm Hg (06/18/20 9:18 AM) Blood pressure sites Arm, left (06/18/20 9:18 AM) Social History Social History Type Response Smoking Status Never smoker; Tobacc o user in household: No entered on: 07/02/15 Sex
--- OUTSIDE RECORDS SUMMARY | 2024-02-22 11:43 | XMS_ITS | Continuity of Care Document ---
Author Organization [facility] Address [address] [place] [address]- Care Team Providers Care Natural Gas Inspector Name Role Phone Al DIEGO, Nanci Segovia Primary Care Physician [phone] [place] [facility] Date(s): 07/29/20 - 08/28/20 [facility] [address] [place], [place] [address] Allergies, Adverse Reactions, Alerts [...] [facility]# [id number] PT. TOLERATED INJ. WITHOUT COMPLICATIONS....CO 2Result Comment: [facility]# [id number] PT. TOLERATED INJ. WITHOUT COMPLICATIONS...CO 3Result Comment: [04/06/2016] pt. tolerated inj. without complications...CO 4Result Comment: [04/14/2015] Measles mumps rubella titer Medications Advair Diskus 500 mcg-50 mcg inhalation powder 1, puffs, Inhalation, 2 times a day, # 1 each, Refills 12, Tot. Refills 12, Maintenance, 12/24/19 13:40:00 EDT, Route to Pharmacy Electronically, [id number], [facility], 161, cm, 06/12/19 8:56:00 EDT, Height, 106,... Start Date: 12/24/19 Status: Ordered Albuterol (Eqv-ProAir HFA) 90 mcg/inh inhalation aerosol 2 puffs, Inhalation, 4 times a day, PRN NEEDED FOR WHEEZING, # 18 Gm, 10 Refills, Maintenance, 06/07/20 14:34:00 EST, [facility], 50, INHALE 2 PUFFS BY MOUTH 4 TIMES DAILY NEEDED FORWHEEZING, 161, cm, 02/10/20 14:26:00 EST, Height, 1... Start Date: 06/07/20 Status: Ordered albuterol-ipratropium 3 mg-0.5 mg/3 ml inhalation solution 3 mL, Neb, 4 times a day, PRN shortness of breath, # 180 mL, 11 Refills, Maintenance, 06/18/20 9:36:00 EDT, Solution, [facility], 3 mL Neb 4 [...] 3 Refills, Maintenance, 12/24/19 13:41:00 EDT, ECCapsule, [facility], 161, cm, 06/12/19 8:56:00 EDT, [...] tablet, 11 Refills, Maintenance, 02/10/20 14:25:00 EST, [facility], 161, c... Start Date: 02/10/20 [...] Refills, Maintenance, 06/18/20 9:35:00 EDT, [facility], 161, cm, :18:00 EDT, [...] 07/09/20 16:28:00 EDT, Route to Pharmacy Electronically, [facility], Partial fill upon patient [...]
--- OUTSIDE RECORDS SUMMARY | 2024-02-22 11:44 | XMS_ITS | Continuity of Care Document ---
Author Organization [facility] Address [address] [place] [address], 4t h Floor [address] [place] [address]- Care Team Providers Care Audio Video Tech Name Role Phone Al DIEGO, Nanci Segovia Primary Care Physician [place] [facility] [place]): 04/08/20 - 05/08/20 [facility] [address] [place] [address], 4th [address] [place] [id number] Allergies, Adverse Reactions, Alerts [...] ded 1Result Comment: [facility]# [id number] PT. TOLERATED INJ. WITHOUT COMPLICATIONS....CO 2Result Comment: [facility]# [id number] PT. TOLERATED INJ. WITHOUT COMPLICATIONS...CO 3Result Comment: [04/06/2016] pt. tolerated inj. without complications...CO 4Result Comment: [04/14/2015] Measles mumps rubella titer Medications Advair Diskus 500 mcg-50 mcg inhalation powder 1, puffs, Inhalation, 2 times a day, # 1 each, Refills 12, Tot. Refills 12, Maintenance, 12/24/19 13:40:00 EDT, Route to Pharmacy Electronically, [id number], [facility], 161, cm, 06/12/19 8:56:00 EDT, Height, 106,... Start Date: 12/24/19 Status: Ordered albuterol 0.083% inhalation solution 3 mL = 2.5 mg, Inhalation, Every 6 hours, PRN for wheezing, # 60 each, 11 Refills, Maintenance, 12/24/19 13:40:00 EDT, Solution, [facility], 161, [...] 1 Refills, Maintenance, 12/16/19 9:22:00 EDT, Tablet, [facility], 161, [...] tablet, 3 Refills, Maintenance, 02/09/20 17:27:00 EST, [facility], [...] each, 5 Refills, Maintenance, 12/24/19 13:58:00 EDT, [facility], 161, cm, 208:56:00 EDT, [...] 13:40:00 EDT, Inhaler, Route to Pharmacy Electronically, [id number],[facility], 161, cm, 06/12/19 8:56:00 ED... Start Date: 12/24/19 Status: Ordered ProAir HFA 90 mcg/inh inhalation aerosol with adapter 2, puffs, Inhalation, 4 times a day, PRN, # 2 each, Refills 5, Tot. Refills 5, Maintenance, 05/19/19 15:55:00 EST, Aerosol, Route to Pharmacy Electronically, [id number], [facility], 161, cm, 01/20/19 [...]
--- OUTSIDE RECORDS SUMMARY | 2024-02-22 11:44 | XMS_ITS | Continuity of Care Document ---
Author Organization [facility] Address [address] [place] [address]- Care Team Providers Care Renal Nurse Name Role Phone Nanci Melendez MD Primary Care Physician [place] [facility] [place]23 - 01/04/24 [facility] [address] [place] [address]- Encounter Diagnosis Asthma(Discharge Diagnosis) - 12/28/23 Gastroparesis(Discharge Diagnosis) - 12/28/23 GERD (gastroesophageal reflux disease)(Discharge Diagnosis) - 12/28/23 Severe obesity(Discharge Diagnosis) - 12/28/23 Attending Physician: Nanci Melendez MD Allergies, Adverse [...] pt. tolerated inj. without complications...CO 2Result Comment: [facility]# [id number] PT. TOLERATED INJ. WITHOUT COMPLICATIONS....CO 3Result Comment: [facility]# [id number] PT. TOLERATED INJ. WITHOUT COMPLICATIONS...CO 4Result Comment: [04/14/2015] Measles mumps rubella titer Medications albuterol 0.083% inhalation solution 3 mL = 2.5 mg, Inhalation, Every 6 hours, PRN for wheezing, # 100 each, 5 Refills, Maintenance, 06/19/22 15:15:00 EDT, Solution, [facility]/pharmacy #[id number], replaces previous Rx for albuterol-ipatropium solution, 163, cm, 05/01/22 14:15:00 EST, Height, 128.2,... Start Date: 06/19/22 Status: Ordered Breo Ellipta 200 mcg-25 mcg/inh inhalation powder 1 puffs, Inhalation, Daily, # 1 each, 6 Refills, Maintenance, 12/28/23 13:38:00 EDT, Powder, [facility]/pharmacy #[id number], Partial fill upon patient request if the prescription is for a schedule II opioid drug., 1 puffs Inhalation Daily, 163, cm, 12/28/23 12:59... Start Date: 12/28/23 Status: Ordered Contrave 8 mg-90 mg oral tablet, extended release See Instructions, 1 tab once daily x 1 week, then 1 tab twice daily in second week then 2 tabs qam,1 tab qhs for 1 week then 2 tabs bid, # 120 tablet, 5 Refills, Maintenance, 12/28/23 13:34:00 EDT, ER Tablet, [facility]/pharmacy #[id number], Partial fill upon prabhu... Start Date: 12/28/23 Status: Ordered Dexilant 60 mg oral delayed release capsule See Instructions, Take 1 capsule by mouth once daily, # 90 capsule, 0 Refills, 03/14/22 14:26:00 EST, [facility], 163, cm, 02/27/22 [...] 03/12/23 11:30:00 EST, Route to Pharmacy Electronically, [id number], [facility]/pharmacy #[id number], 163, cm, 03/02/23 13:11:00 EST, Height, 128.2, kg, 02/05/22 1... 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, 08/30/18 17:26:09 EDT, Compound Start Date: 08/30/18 Status: Ordered norethindrone 0.35 mg oral tablet 1 tablet, By Mouth, Daily, # 84 tablet, 5 Refills, Maintenance, 08/16/22 9:41:00 EDT, [id number], 163, cm, 05/01/22 14:15:00 EST, Height, 128.2, kg, 02/05/22 12:22:00 EST, Dry Weight Start Date: 08/16/22 Status: Ordered ondansetron 4 mg oral tablet 1 tablet, By Mouth, Every 8 hours, PRN NEEDED FOR NAUSEA AND VOMITING FOR, # 15 tablet, 3 Refills, Maintenance, 09/14/23 16:11:00 EDT, [id number], 160, cm, 07/21/23 8:30:00 EDT, Height, 114, kg, 07/21/23 8:30:00 EDT, Dry Weight Start Date: 09/14/23 Stop Date: 09/19/23 Status: Ordered Multivitamins By Mouth, Daily, 0 Refills, Maintenance, 06/05/18 11:27:06 EST Start Date: 06/05/18 Status: Ordered sucralfate 1 gm/10 ml oral suspension TAKE 10 ML BY MOUTH 4 TIMES DAILY (BEFORE MEALS AND NIGHTLY) FOR 30 DAYS. Start Date: 12/28/23 Status: Ordered Ventolin HFA 108 mcg/inh inhalation aerosol with adapter 2 puffs, Inhalation, Every 4 hours, PRN for wheezing, # 8 Gm, 5 Refills, Maintenance, 12/13/23 12:46:00 EDT, Aerosol, [facility]/pharmacy #[id number], Partial fill upon [...] Status Clinical Service Informant Asthma Discharge Diagnosis 12/28/23 Gastroparesis Discharge Diagnosis 12/28/23 GERD (gastroesophageal reflux disease) Discharge Diagnosis 12/28/23 Severe obesity Discharge Diagnosis 12/28/23 Vital Signs Most recent to oldest [Reference Range]: 1 Height 163 cm (12/28/23 12:59 PM) Weight 115 kg (12/28/23 12:59 PM) Oxygen Saturation [94-100 %] 96 % (12/28/23 12:59 PM) Pulse Rate [55-90 bpm] 97 bpm *H* (12/28/23 12:59 PM) Body Mass Index [18.5-24.99 kg/m2] 43.28 kg/m2 *>HHI* (12/28/23 12:59 PM) Blood Pressure [90-138/55-84 mm Hg] 96/6 4mm Hg (12/28/23 12:59 PM) Temperature [96.8-100.4 DegF] 99.1 DegF (12/28/23 12:59 PM) Mode of Delivery (Oxygen) Room air (12/28/23 12:59 PM) Blood pressure sites Arm, left (12/28/23 12:59 PM) Temperature Route Temporal (12/28/23 12:59 PM) Dry Weight 115 kg (12/28/23 12:59 PM) Weight Obtained Via Standing scale (12/28/23 12:59 PM) Dry Weight Obtained Via Standing scale (12/28/23 12:59 PM) Social History Social History Type Response Smoking Status Never smoker; Tobacc o user in household: No entered on: 07/02/15 Sex Note * Jalyn Lr: PERFORM Event Display: Patient Education/Instruction Authored Date: Ambulatory Adult Visit Summary [facility] [address] [place] [address] Name: RAFA RITCHIE : 1990?? Visit: 12/28/2023 12:49?? Ambulatory Visit Instructions ?? Your Care Team Primary Care Provider Nanci Melendez MD? This Visit Provider Nanci Melendez MD Your Diagnosis Routine check-up Obesity PCOS (polycystic ovarian syndrome) Asthma Gastroparesis GERD (gastroesophageal reflux disease) Severe obesity Vitals Signs Temperature: 99.1 DegF Height: 163 cm Pulse Rate:??97 bpm??High Weight: 115 kg Systolic Blood Pressure: 96 mm Hg Body Mass Index:??43.28 kg/m2??Critical Diastolic Blood Pressure: 64 mm Hg Body surface area: 2.28 Oxygen Saturation: 96 % ?? What to do next Scheduled Follow-Up Appointments Sunday 10:30 AM EDT ?? With: Franco Gambino Where: [facility] [address] [place] [address] [address] [address]- Status: Pending Future Orders Complete Urinalysis (Urinalysis Complete) - Routine, Once, 07/17/23 16:28:00 EDT, Order for Today, [facility], Urine?? Urine Culture - Routine, Once, 07/17/23 16:29:00 EDT, Order for Today, [facility], Urine Clean Catch?? CBC w/ Differential - Routine, Once, 12/28/23 13:42:00 EDT, Order for Today, [facility], Blood?? Comprehensive Metabolic Panel - Routine, Once, 12/28/23 13:42:00 EDT, Order for Today, [facility], Blood?? Lipid Panel Non Fasting - Routine, Once, 12/28/23 13:42:00 EDT, Order for Today, [facility], Blood?? Hemoglobin A1C (Monitoring) - Routine, Once, 12/28/23 13:42:00 EDT, Order for Today, [facility], Blood?? Thyroid Panel - Routine, Once, 12/28/23 13:42:00 EDT, Order for Today, [facility], Blood?? Direct LDL - Routine, Once, 12/28/23 13:43:00 EDT, Order for Today, [facility], Blood?? Medications The list below reflects the information in our records and provided by you today along with any changes made during this visit. Please continue your medications until treatment is completed or stopped by your provider. If this is different from the information you have or there are other questions,please contact the prescribing provider. What How Much When Instructions New buPROPion-naltrexone (Contrave 8 mg-90 mg oral tablet, extendedrelease) See instructions Refills: 5 1 tab once daily x 1 week, then 1 tab twice daily in second week then 2 tabs qam,1 tab qhs for 1 week then 2 tabs bid ?? Pickup at [facility]/pharmacy #[id number] New fluticasone-vilanterol (Breo Ellipta 200 mcg-25 mcg/ inh inhalation powder) 1 puff(s) Inhalation Daily Refills: 6 Pickup at [facility]/pharmacy #1130 Unchanged Albuterol (albuterol 0.083% inhalation solution) 3 [...] tablet) 2 tab(s) Twice a day Unchanged Fluticasone Nasal (Flonase) 1 spray(s) Daily Unchanged Fluticasone-Salmeterol (fluticasone-salmeterol 500 mcg-50 mcg inhalation powder) 1 Doses Inhalation Twice a day Unchanged Multivitamin, ( Multivitamins) Oral Daily Unchanged Norethindrone (norethindrone 0.35 mg oral tablet) 1 tab(s) Oral Daily Unchanged Ondansetron (ondansetron 4 mg oral tablet) 1 tab(s) Oral Every 8 hours as needed for NEEDED FOR NAUSEA AND VOMITING FOR Duration: 5 Days Unchanged Sucralfate (sucralfate 1 gm/ 10 ml oral suspension) TAKE 10 ML BY MOUTH 4 TIMES DAILY (BEFORE MEALS AND NIGHTLY) FOR 30 DAYS. ?? Pharmacy Information [facility]/pharmacy #[id number]: [address] [place], [place] [id number] [phone] ?? What How Much When Comments Stop Taking Ferrous Sulfate (ferrous sulfate 325 mg oral tablet) 1 tab(s) Oral Twice a day Test Performed Below is a partial list of the tests performed during your Visit. You may have had other tests and procedures not included in this list. Please discuss all test results with your provider. CBC w/ Differential?-- Results Pending -- Comprehensive Metabolic Panel?-- Results Pending -- Direct LDL?-- Results Pending -- Hemoglobin A1C (Monitoring)?-- Results Pending -- Lipid Panel Non Fasting?-- Results Pending -- Thyroid Panel?-- Results Pending -- Medications and Immunizations Administered Medications Given During Visit No medications given during this visit.?? Allergies (NKA means No Known Allergies) Other Environmental Allergy Reglan??(EYE TWITCHING) Common Emergency Awareness Tips IS IT A [...] are strongly encouraged to quit. Please call [facility] at [phone] or [phone] ([phone]) or log in to [email or web address] for referrals to smoking cessation programs. ?? The National Suicide Prevention Hotline is available 23/10 if you or someone you know needs to find a reason to keep living. By calling 4-502-533-Icount.com (9826) you'll be connected to a skilled, trained counselor at a crisis center in your area. [facility] Health Portal You can view and manage your care through the patient portal or by using a health care ismael of your choosing. Where Was it Filmed is a website that allows you to securely view your medical information including your hospital discharge summary, office visit summaries, medications and follow-up visits. You can also request appointments, renew medications, and request access to your medical information using a health care ismael of your choosing, or just ask a question. You can enroll at [email or web address] or register during your next office visit. [facility], in keeping with [facility] guidance, no longer requires face masks for [...] medical provider or home test kit. ?? Disclaimer: The information provided is of a general nature and is intended to be used in conjunction with the recommendations and advice of your health care practitioner. Every effort has been made to ensure that the information provided is accurate and complete at the time it is provided to you however, as your needs change, or, as new information becomes available, different or additional instructions may be required. ?? If you have questions, please consult with your primary care provider or pharmacist, as appropriate. This information is not intended to serve as substitution for assessment and evaluation by a qualified health care provider. If you do not have a primary care provider, you may find a [facility] provider by calling [facility] [facility] at [phone]. Patient Care team information Care Team Personnel Name: Adela Sorto MD Position: [facility] WILDLIFE ECOLOGY PROFESSOR Member Role: [employer] WILDLIFE ECOLOGY PROFESSOR Physician Address: Address: [address], [address] [place] [address]- Name: Nanci Melendez MD Position: [facility] Physician - Primary Care Member Role: PCP Address: Address: [address] [address]- Name: Tammy Schuler Position: [facility] Outreach Member Role: [employer] Consulting Physician Care Team Related Persons Name: SEAN RITCHIE Address: [address] Address: [address] [place] [address] [place] Name: DERRELL RITCHIE Address: home [address] [place] [address] Name: DERRELL RITCHIE Address: home [address] [place] [address] Name: DERRELL RITCHIE Address: home [address] [place] [address] Name: SHEBA CANO Address: [address] [place] [address] Name: DAYANNA CANO Address: [address] [place] [address]
--- OUTSIDE RECORDS SUMMARY | 2024-02-22 11:44 | XMS_ITS | Continuity of Care Document ---
Author Organization [facility] Address [address], 4t h Floor [address] [place] [address]- Care Team Providers Care Hand Edger Name Role Phone Nanci Melendez MD Primary Care Physician Encounter [facility] Date(s): 02/10/20 - 03/11/20 [facility] [address], 4th [address] [place] [address] Allergies, Adverse Reactions, Alerts Substance Reaction [...] Vaccine 11/21/89 Recor ded 1Result Comment: [facility]# [id number] PT. TOLERATED INJ. WITHOUT COMPLICATIONS....CO 2Result Comment: [facility]# [id number] PT. TOLERATED INJ. WITHOUT COMPLICATIONS...CO 3Result Comment: [04/06/2016] pt. tolerated inj. without complications...CO 4Result Comment: [04/14/2015] Measles mumps rubella titer Medications Advair Diskus 500 mcg-50 mcg inhalation powder 1, puffs, Inhalation, 2 times a day, # 1 each, Refills 12, Tot. Refills 12, Maintenance, 12/24/19 13:40:00 EDT, Route to Pharmacy Electronically, [id number], [facility], 161, [...] 13:40:00 EDT, Inhaler, Route to Pharmacy Electronically, [id number],[facility], 161, cm, 06/12/19 8:56:00 ED... Start Date: 12/24/19 Status: Ordered ProAir HFA 90 mcg/inh inhalation aerosol with adapter 2, puffs, Inhalation, 4 times a day, PRN, # 2 each, Refills 5, Tot. Refills 5, Maintenance, 05/19/19 15:55:00 EST, Aerosol, Route to Pharmacy Electronically, [id number], [facility], 161, [...]
--- OUTSIDE RECORDS SUMMARY | 2024-02-22 11:44 | XMS_ITS | Continuity of Care Document ---
Author Organization [facility] Address [address] [place] [address]- Care Team Providers Care Laundry Assistant Name Role Phone Al DIEGO, Nanci Segovia Primary Care Physician Encounter [facility] [place] Date(s): 08/01/21 - 08/31/21 [facility] [address] [place] [address]- Attending Physician: Marely Fu Admitting Physician: Marely [...] Virus Vaccine 11/21/89 Recor ded 1Result Comment: [facility]# [id number] PT. TOLERATED INJ. WITHOUT COMPLICATIONS....CO 2Result Comment: [facility]# [id number] PT. TOLERATED INJ. WITHOUT COMPLICATIONS...CO 3Result Comment: [04/06/2016] pt. tolerated inj. without complications...CO 4Result Comment: [04/14/2015] Measles mumps rubella titer Medications Albuterol (Eqv-ProAir HFA) 90 mcg/inh inhalation aerosol See Instructions, INHALE 2 PUFFS BY MOUTH 4 TIMES DAILY NEEDED FOR WHEEZING, # 9 Gm, 6 Refills, 08/17/21 9:51:00 EDT, [facility], [facility], INHALE 2 PUFFS BY MOUTH 4 TIMES DAILY NEEDED FORWHEEZING, 162, cm, 08/03/21 16:59:00 EDT, Height, 1... Start Date: 08/17/21 Status: Ordered albuterol 0.083% inhalation solution 3 mL = 2.5 mg, Inhalation, Every 6 hours, PRN for wheezing, # 100 each, 5 Refills, Maintenance, 08/17/21 9:51:00 EDT, Solution, [facility], replaces previous Rx for albuterol-ipatropium [...] tablet, 11 Refills, Maintenance, 08/18/21 16:40:00EDT, Tablet, [facility], Partial fill upon patient request [...] 08/17/21 9:51:00 EDT, Route to Pharmacy Electronically, [id number], [facility], 162, cm, 08/03/21 16:59:00 [...] tablet, 11 Refills, Maintenance, 03/16/21 11:27:00 EST, [facility], 162, c... Start Date: [...] each, 11 Refills, Maintenance, 06/18/20 9:35:00 EDT, [facility], 161, cm, :18:00 EDT, [...]
--- OUTSIDE RECORDS SUMMARY | 2024-02-22 11:44 | XMS_ITS | Continuity of Care Document ---
Author Organization [facility] Address Unknown Care Team Providers Care Minor League Baseball Player Name Role Phone Nanci Melendez MD Primary Care Physician [facility] Date(s): 03/28/21 - 04/27/21 [facility] Allergies, Adverse Reactions, Alerts [...] 1Result Comment: [facility]# [id number] PT. TOLERATED INJ. WITHOUT COMPLICATIONS....CO 2Result Comment: [facility]# [id number] PT. TOLERATED INJ. WITHOUT COMPLICATIONS...CO 3Result Comment: [...] Gm, 10 Refills, Maintenance, 06/07/20 14:34:00 EST, [facility], 50, INHALE 2 PUFFS BY MOUTH 4 TIMES DAILY NEEDED FORWHEEZING, 161, cm, 02/10/20 14:26:00 EST, Height, 1... Start Date: 06/07/20 Status: Ordered albuterol 0.083% inhalation solution 3 mL = 2.5 mg, Inhalation, Every 6 hours, PRN for wheezing, # 25 each, 0 Refills, Maintenance, 04/04/21 12:33:00 EST, Solution, [facility] 1966, replaces previous Rx for albuterol-ipatropium solution, 162, cm, 03/10/21 14:17:00 EST, Height, 105.... Start Date: 04/04/21 Status: Ordered albuterol-ipratropium 3 mg-0.5 mg/3 ml inhalation solution 3 mL, Neb, 4 times a day, PRN shortness of breath, # 180 mL, 2 Refills, Maintenance, 04/04/21 8:55:00 EST, Solution, [facility], 3 mL Neb 4 times a day,PRN:shortness of breath, 162, cm, 03/10/21 14:17:00 EST, Height, 105.2, kg, 02/12/21 17:... Start Date: 04/04/21 Status: Ordered Apri 0.15 mg-0.03 mg oral tablet 1 tablet, By Mouth, Daily, start first tablet today, # 1 pack/packet, 3 Refills, Maintenance, 12/09/20 13:48:00 EDT, [facility] 1967, Partial fill upon [...] 0 Refills, Maintenance, 02/11/21 12:37:00 EST, ECCapsule, [facility], 163, cm, 01/01/21 10:10:00 EDT, Height Start Date: 02/11/21 Status: Ordered doxycycline hyclate 100 mg oral tablet 1 tablet = 100 mg, By Mouth, 2 times a day, # 28 tablet, 5 Refills, Maintenance, 12/31/20 8:23:00 EDT, [facility], Partial fill upon patient [...] each, Refills 5, Route to Pharmacy Electronically, [id number], [facility], 163, cm, 01/01/21 10:10:00 EDT, Height Start Date: 01/28/21 Status: Ordered Gonal-F 1050 units subcutaneous injection = 150 International_Units, Subcutaneous Injection, Daily, # 2 kit, 5 Refills, Maintenance, 218:23:00 EDT, [facility], Partial fill upon patient [...] tablet, 11 Refills, Maintenance, 03/16/21 11:27:00 EST, [facility], 162, c... Start [...] each, 11 Refills, Maintenance, 06/18/20 9:35:00 EDT, [facility], 161, cm, 219:18:00 EDT, Height, 106, kg, 09/11/18 13:37:00 EDT... Start Date: 06/18/20 Status: Ordered oxyCODONE 5 mg oral tablet 5 mg, 1, tablet, By Mouth, Every 6 hours, PRN, # 8 tablet, Refills 0, Tot. Refills 0, Maintenance, Pain , Mild, 01/18/21 9:22:00 EDT, Route to Pharmacy Electronically, [facility], Partial fill upon patient request if the prescription is for... Start Date: 01/18/21 Status: Ordered Pregnyl 90470 u injectable powder for injection = 1,000 units, Intramuscular, Once, For use as trigger shot. Use 3 mL of diluent to reconstitute powder. Draw and administer 0.3 mL of reconsituted pregnyl for total dose of 1000 units., # 1 kit, 5 Refills, Soft Stop, 12/31/20 8:24:00 EDT, [facility]... Start Date: 12/31/20 Status: Ordered Multivitamins By Mouth, Daily, 0 Refills, Maintenance, 06/05/18 11:27:06 EST Start Date: 06/05/18 Status: Ordered progesterone 50 mg/mL intramuscular solution 50mg/ml 1 ml (sesame oil), Intramuscular, Daily, # 30 mL, 5 Refills, Maintenance, 02/03/21 11:55:00EDT, [facility], Partial fill upon patient request if the prescription is for a schedule II opioid drug., 163, cm, 01/01/21 10:10:00 E... Start Date: 02/03/21 Status: Ordered Prometrium 200 mg oral capsule See Instructions, vaginally 3 times a day, # 90 tablet, 5 Refills, Maintenance, 12/31/20 8:22:00 EDT, [facility], Partial fill upon patient request if the prescription is for a schedule II opioid drug., 161, cm, 10/12/20 10:38:00 EDT,... Start Date: 12/31/20 Status: Ordered Provera 10 mg oral tablet 10 mg, 1, tablet, By Mouth, Daily, # 10 tablet, Refills 0, Tot. Refills 0, Maintenance, 04/04/21 10:58:00 EST, Route to Pharmacy Electronically, [facility] 1966, Partial fill upon [...] 01/18/21 9:22:00 EDT, Route to Pharmacy Electronically, [facility] 1966, Partial fill upon [...] patch, 5 Refills, Maintenance, 12/31/20 8:23:00 EDT, [facility], Partial fill upon patient request if the prescription is for a schedule II opio... Start Date: 12/31/20 Status: Ordered yes yes, See Instructions, # 2 each, Refills 5, Tot. Refills 5, Maintenance, [place] Capped Insulin Syringe for lupron administration, 12/31/20 [...]
--- OUTSIDE RECORDS SUMMARY | 2024-02-22 11:44 | XMS_ITS | Continuity of Care Document ---
Author Organization [facility] Address [address] [place] [address]- Care Team Providers Care Media Services Coordinator Name Role Phone Nanci Melendez MD Primary Care Physician En[place] [facility] [place](s[place] 11/10/19 - 11/17/19 [facility] [address] [place] [address]- [facility] Encounter Diagnosis Pain of right heel(Discharge Diagnosis) - 11/10/19 Attending Physician: Nanci Melendez MD Allergies, Adverse [...] Comment: [facility]# [id number] PT. TOLERATED INJ. WITHOUT COMPLICATIONS....CO 2Result Comment: [facility]# [id number] PT. TOLERATED INJ. WITHOUT COMPLICATIONS...CO 3Result Comment: [04/06/2016] pt. tolerated inj. without complications...CO 4Result Comment: [04/14/2015] Measles mumps rubella titer Medications Advair Diskus 500 mcg-50 mcg inhalation powder 1, puffs, Inhalation, 2 times a day, # 60 Doses, Refills 12, Tot. Refills 12, Maintenance, 06/05/1910:25:22 EST, Route to Pharmacy Electronically, [id number], [facility] 1968 Start Date: 06/05/18 Status: Ordered albuterol 0.083% inhalation solution 3 mL = 2.5 mg, Inhalation, Every 6 hours, PRN for wheezing, # 60 each, 11 Refills, Maintenance, 06/20/19 9:26:00 EDT, Solution, [facility], 161, cm, 06/12/19 8:56:00 EDT, [...] Refills, Maintenance, 06/12/19 9:48:00 EDT, EC Capsule, [facility], 161, cm, 06/12/19 8:56:00 EDT, Height, 106, kg, 09/11/18 13:37:00 EDT, Dry Weight Start Date: 06/12/19 Status: Ordered diclofenac sodium 75 mg oral delayed release tablet 1 tablet = 75 mg, By Mouth, 2 times a day, PRN for pain, TAKE WITH FOOD, # 28 tablet, 0 Refills, Maintenance, 11/10/19 9:12:00 EDT, Tablet, [facility], 161, cm, 06/12/19 8:56:00 EDT, [...] DAYS, # 15 each, 5 Refills, Maintenance, [facility], 161, cm, 01/20/19 11:38:00 EDT, [...] 15:55:00 EST, Aerosol, Route to Pharmacy Electronically, [id number], [facility], 161, cm, 01/20/19 11:38:00 EDT,... Start Date: 05/19/19 Status: Ordered ProAir HFA 90 mcg/inh inhalation aerosol with adapter 2, puffs, Inhalation, 4 times a day, Refills 0, Maintenance, 06/07/18 9:18:22 EST Start Date: 06/07/18 Status: Ordered simethicone 250 mg oral capsule 1 capsule = 250 mg, By Mouth, Daily, 0 Refills, Maintenance, 06/07/18 9:16:30 EST Start Date: 06/07/18 Status: Ordered Tylenol 8 HR Arthritis Pain 650 mg oral tablet, extended release 1 tablet = 650 mg, By Mouth, 3 times a day, PRN Pain , Moderate, for 14 days, # 42 tablet, 0 Refills, Acute 11/24/19 9:12:00 EDT, 11/10/19 9:12:00 EDT, ER Tablet, [facility], DIPSENSE EQUIVALENT THAT IS ON FORMULARY, 161, cm, 06/12/19 8:56:... Start Date: 11/10/19 Stop Date: 11/24/19 Status: Ordered Zantac 300 oral tablet 1 [...] Diagnosis Diagnosis Type Effective Dates Health Status Cl inical Service Informant Pain of right heel Discharge Diagnosis 11/10/19 Social History Social History Type Response Smoking Status Never smoker; Tobacc o user in household: No entered on: 07/02/15 Sex
--- OUTSIDE RECORDS SUMMARY | 2024-02-22 11:44 | XMS_ITS | Continuity of Care Document ---
Author Organization [facility] Hina n[employer] [facility] Address [address] [place] [address], [address] [place] [address]- Care Team Providers Care Metal Annealer Name Role Phone Al DIEGO, Nanci Segovia Primary Care Physician [facility] [place]s): 01/19/22 - 01/26/22 [facility] Sherrardenrique [facility]osa[facility] [address], [address] [place], [place] [address] Attending Physician: Philip Mosqueda MD Referring Physician: [...] Virus Vaccine 11/21/89 Recor ded 1Result Comment: [facility]# [id number] PT. TOLERATED INJ. WITHOUT COMPLICATIONS....CO 2Result Comment: [facility]# [id number] PT. TOLERATED INJ. WITHOUT COMPLICATIONS...CO 3Result Comment: [04/06/2016] pt. tolerated inj. without complications...CO 4Result Comment: [04/14/2015] Measles mumps rubella titer Medications Albuterol (Eqv-ProAir HFA) 90 mcg/inh inhalation aerosol See Instructions, INHALE 2 PUFFS BY MOUTH 4 TIMES DAILY NEEDED FOR WHEEZING, # 9 Gm, 6 Refills, 08/17/21 9:51:00 EDT, [facility], 25, INHALE 2 PUFFS BY MOUTH 4 TIMES DAILY NEEDED FORWHEEZING, 162, cm, 08/03/21 16:59:00 EDT, Height, 1... Start Date: 08/17/21 Status: Ordered albuterol 0.083% inhalation solution 3 mL = 2.5 mg, Inhalation, Every 6 hours, PRN for wheezing, # 100 each, 5 Refills, Maintenance, 08/17/21 9:51:00 EDT, Solution, [facility] 1966, replaces previous Rx for [...] once daily, # 90 capsule, 1 Refills, [facility], 162, cm, 09/16/21 15:34:00 [...] tablet, 11 Refills, Maintenance, 08/18/21 16:40:00EDT, Tablet, [facility] 1967, Partial fill upon patient [...] 08/17/21 9:51:00 EDT, Route to Pharmacy Electronically, [id number], [facility], 162, cm, 08/03/21 16:59:00 [...] tablet, 11 Refills, Maintenance, 03/16/21 11:27:00 EST, [facility], 162, cm, 03/10/21 14:17:00 [...] each, 11 Refills, Maintenance, 06/18/20 9:35:00 EDT, [facility], 161, cm, :18:00 EDT, [...] oldest [Reference Range]: 1 Height 162 cm (01/19/22 4:30 PM) Weight 125.8 kg (01/19/22 4:30 PM) Body Mass Index [18.5-24.99 kg/m2] 47.93 kg/m2 *>HHI* (01/19/22 4:30 PM) Blood Pressure [90-138/55-84 mm Hg] 113/ 73mm Hg (01/19/22 4:30 PM) Blood pressure sites Arm, right (01/19/22 4:30 PM) Weight Obtained Via Standing scale (01/19/22 4:30 PM) Social History Social History Type Response Smoking Status Never smoker; Tobacc o user in household: No entered on: 07/02/15 Sex Patient Care team information Personnel Name: Nanci Melendez MD Address: Address: [address] [place] [address]
--- OUTSIDE RECORDS SUMMARY | 2024-02-22 11:44 | XMS_ITS | Continuity of Care Document ---
Author Organization [facility] Address Unknown Care Team Providers Care Independent Insurance Adjuster Name Role Phone Nanci Melendez MD Primary Care Physician [phone] Encounter [facility] Date(s): 05/03/21 - 06/02/21 [facility] Allergies, Adverse Reactions, Alerts Substance [...] Comment: [facility]# [id number] PT. TOLERATED INJ. WITHOUT COMPLICATIONS....CO 2Result Comment: [facility]# [id number] PT. TOLERATED INJ. WITHOUT COMPLICATIONS...CO 3Result Comment: [...] Gm, 10 Refills, Maintenance, 06/07/20 14:34:00 EST, [facility], 50, INHALE 2 PUFFS BY MOUTH 4 TIMES DAILY NEEDED FORWHEEZING, 161, cm, 02/10/20 14:26:00 EST, Height, 1... Start Date: 06/07/20 Status: Ordered albuterol 0.083% inhalation solution 3 mL = 2.5 mg, Inhalation, Every 6 hours, PRN for wheezing, # 25 each, 0 Refills, Maintenance, 04/04/21 12:33:00 EST, Solution, [facility], replaces previous Rx for albuterol-ipatropium solution, 162, cm, 03/10/21 14:17:00 EST, Height, 105.... Start Date: 04/04/21 Status: Ordered albuterol-ipratropium 3 mg-0.5 mg/3 ml inhalation solution 3 mL, Neb, 4 times a day, PRN shortness of breath, # 180 mL, 2 Refills, Maintenance, 04/04/21 8:55:00 EST, Solution, [facility] 1967, 3 mL Neb 4 times a day,PRN:shortness of breath, 162, cm, 03/10/21 14:17:00 EST, Height, 105.2, kg, 02/12/21 17:... Start Date: 04/04/21 Status: Ordered Apri 0.15 mg-0.03 mg oral tablet 1 tablet, By Mouth, Daily, start first tablet today, # 1 pack/packet, 3 Refills, Maintenance, 12/09/20 13:48:00 EDT, [facility], Partial fill upon [...] 0 Refills, Maintenance, 02/11/21 12:37:00 EST, ECCapsule, [facility], 163, cm, 01/01/21 10:10:00 EDT, Height Start Date: 02/11/21 Status: Ordered Endometrin 100 mg vaginal insert = 100 mg, Vaginally, 3 times a day, to add on day of transfer, # 90 supp, 5 Refills, Maintenance, 04/28/21 9:20:00 EST, [facility], Partial fill upon patient request [...] each, Refills 5, Route to Pharmacy Electronically, [id number], [facility], 163, cm, 01/01/21 10:10:00 EDT, Height Start Date: 01/28/21 Status: Ordered metFORMIN 500 mg oral tablet, extended release See Instructions, take 1 tablet po w/dinner x1 wk, then increase to 2 tablets x 1-2 wks, then increase to 3 tablets 1-2 wks,then 4 tabs with dinner every day., # 120 tablet, 11 Refills, Maintenance, 03/16/21 11:27:00 EST, [facility], 162, c... Start [...] each, 11 Refills, Maintenance, 06/18/20 9:35:00 EDT, [facility], 161, cm, 219:18:00 EDT, Height, 106, kg, 09/11/18 13:37:00 EDT... Start Date: 06/18/20 Status: Ordered oxyCODONE 5 mg oral tablet 5 mg, 1, tablet, By Mouth, Every 6 hours, PRN, # 8 tablet, Refills 0, Tot. Refills 0, Maintenance, Pain , Mild, 01/18/21 9:22:00 EDT, Route to Pharmacy Electronically, [facility], Partial fill upon patient request if the prescription is for... Start Date: 01/18/21 Status: Ordered Multivitamins By Mouth, Daily, 0 Refills, Maintenance, 06/05/18 11:27:06 EST Start Date: 06/05/18 Status: Ordered progesterone 50 mg/mL intramuscular solution 50mg/ml 1 ml (sesame oil), Intramuscular, Daily, # 30 mL, 5 Refills, Maintenance, 04/28/21 9:19:00 EST, [facility], Partial fill upon patient request if the prescription is for a schedule II opioid drug., 162, cm, 03/10/21 14:17:00 ES... Start Date: 04/28/21 Status: Ordered Provera 10 mg oral tablet 10 mg, 1, tablet, By Mouth, Daily, # 10 tablet, Refills 0, Tot. Refills 0, Maintenance, 04/04/21 10:58:00 EST, Route to Pharmacy Electronically, [facility] 1966, Partial fill upon [...] 01/18/21 9:22:00 EDT, Route to Pharmacy Electronically, [facility], Partial fill upon [...] patch, 5 Refills, Maintenance, 04/28/21 9:19:00 EST, [facility], Partial fill upon patient request [...]
--- OUTSIDE RECORDS SUMMARY | 2024-02-22 11:44 | XMS_ITS | Continuity of Care Document ---
Author Organization [facility] Hina n[employer] [facility] Address [address], [address] [address]- Care Team Providers Care Under Trimmer Name Role Phone Nanci Melendez MD Primary Care Physician [phone] Encounter [facility] Date(s): 10/25/21 - 11/24/21 [facility] Susanenrique SosaP2is [facility] [address], [address] [place], [place] [address] Allergies, Adverse Reactions, Alerts [...] Virus Vaccine 11/21/89 Recor ded 1Result Comment: [facility]# [id number] PT. TOLERATED INJ. WITHOUT COMPLICATIONS....CO 2Result Comment: [facility]# [id number] PT. TOLERATED INJ. WITHOUT COMPLICATIONS...CO 3Result Comment: [04/06/2016] pt. tolerated inj. without complications...CO 4Result Comment: [04/14/2015] Measles mumps rubella titer Medications Albuterol (Eqv-ProAir HFA) 90 mcg/inh inhalation aerosol See Instructions, INHALE 2 PUFFS BY MOUTH 4 TIMES DAILY NEEDED FOR WHEEZING, # 9 Gm, 6 Refills, 08/17/21 9:51:00 EDT, [facility], 25, INHALE 2 PUFFS BY MOUTH 4 TIMES DAILY NEEDED FORWHEEZING, 162, cm, 08/03/21 16:59:00 EDT, Height, 1... Start Date: 08/17/21 Status: Ordered albuterol 0.083% inhalation solution 3 mL = 2.5 mg, Inhalation, Every 6 hours, PRN for wheezing, # 100 each, 5 Refills, Maintenance, 08/17/21 9:51:00 EDT, Solution, [facility], replaces previous Rx for albuterol-ipatropium [...] once daily, # 90 capsule, 1 Refills, [facility], 162, cm, 09/16/21 15:34:00 EDT, [...] tablet, 11 Refills, Maintenance, 08/18/21 16:40:00EDT, Tablet, [facility], Partial fill upon patient [...] 08/17/21 9:51:00 EDT, Route to Pharmacy Electronically, [id number], [facility], 162, cm, 08/03/21 16:59:00 [...] tablet, 11 Refills, Maintenance, 03/16/21 11:27:00 EST, [facility], 162, c... Start Date: [...] each, 11 Refills, Maintenance, 06/18/20 9:35:00 EDT, [facility], 161, cm, :18:00 EDT, [...] Team Personnel Name: Nanci Melendez MD Address: [address] [place] [address]
--- OUTSIDE RECORDS SUMMARY | 2024-02-22 11:44 | XMS_ITS | Continuity of Care Document ---
Author Organization [facility] Hina nIn [employer] [facility] Address [address], [address] [place] [address]- Care Team Providers Care Guardian Ad Litem Name Role Phone Nanci Melendez MD Primary Care Physician [phone] Encounter [facility] [place] [place] Date(s): 11/04/21 - 12/04/21 [facility] Susanenrique SosaIn [employer] [facility] [address] [facility] [address], [address] [place], [place] [address] [[email or web address]] Allergies, Adverse Reactions, Alerts Substance Reaction Severity [...] Comment: [facility]# [id number] PT. TOLERATED INJ. WITHOUT COMPLICATIONS....CO 2Result Comment: [facility]# [id number] PT. TOLERATED INJ. WITHOUT COMPLICATIONS...CO 3Result Comment: [04/06/2016] pt. tolerated inj. without complications...CO 4Result Comment: [04/14/2015] Measles mumps rubella titer Medications Albuterol (Eqv-ProAir HFA) 90 mcg/inh inhalation aerosol See Instructions, INHALE 2 PUFFS BY MOUTH 4 TIMES DAILY NEEDED FOR WHEEZING, # 9 Gm, 6 Refills, 08/17/21 9:51:00 EDT, [facility], 25, INHALE 2 PUFFS BY MOUTH 4 TIMES DAILY NEEDED FORWHEEZING, 162, cm, 08/03/21 16:59:00 EDT, Height, 1... Start Date: 08/17/21 Status: Ordered albuterol 0.083% inhalation solution 3 mL = 2.5 mg, Inhalation, Every 6 hours, PRN for wheezing, # 100 each, 5 Refills, Maintenance, 08/17/21 9:51:00 EDT, Solution, [facility], replaces previous Rx for albuterol-ipatropium [...] once daily, # 90 capsule, 1 Refills, [facility], 162, cm, 09/16/21 15:34:00 EDT, [...] tablet, 11 Refills, Maintenance, 08/18/21 16:40:00EDT, Tablet, [facility], Partial fill upon patient request [...] 08/17/21 9:51:00 EDT, Route to Pharmacy Electronically, [id number], [facility] [...] [facility], 161, cm, :18:00 EDT, Height, [...] Team Personnel Name: Nanci Melendez MD Address: [address] [place] [address]
--- OUTSIDE RECORDS SUMMARY | 2024-02-22 11:44 | XMS_ITS | Continuity of Care Document ---
Author Organization [facility] Address [address] [address]- Care Team Providers Care Ict Systems Test Engineer Name Role Phone Nanci Melendez MD Primary Care Physician Encounter [facility] Date(s): 12/30/21 - 01/29/[address] [address] Attending Physician: Marely Fu [...] Vaccine 11/21/89 Recor ded 1Result Comment: [facility]# [id number] PT. TOLERATED INJ. WITHOUT COMPLICATIONS....CO 2Result Comment: [facility]# [id number] PT. TOLERATED INJ. WITHOUT COMPLICATIONS...CO 3Result Comment: [04/06/2016] pt. tolerated inj. without complications...CO 4Result Comment: [04/14/2015] Measles mumps rubella titer Medications Albuterol (Eqv-ProAir HFA) 90 mcg/inh inhalation aerosol See Instructions, INHALE 2 PUFFS BY MOUTH 4 TIMES DAILY NEEDED FOR WHEEZING, # 9 Gm, 6 Refills, 08/17/21 9:51:00 EDT, [facility], 25, INHALE 2 PUFFS BY MOUTH 4 TIMES DAILY NEEDED FORWHEEZING, 162, cm, 08/03/21 16:59:00 EDT, Height, 1... Start Date: 08/17/21 Status: Ordered albuterol 0.083% inhalation solution 3 mL = 2.5 mg, Inhalation, Every 6 hours, PRN for wheezing, # 100 each, 5 Refills, Maintenance, 08/17/21 9:51:00 EDT, Solution, [facility], replaces previous Rx for albuterol-ipatropium [...] once daily, # 90 capsule, 1 Refills, [facility], 162, cm, 09/16/21 15:34:00 EDT, [...] tablet, 11 Refills, Maintenance, 08/18/21 16:40:00EDT, Tablet, [facility], Partial fill [...] 08/17/21 9:51:00 EDT, Route to Pharmacy Electronically, [id number], [facility], 162, cm, 08/03/21 16:59:00 [...] tablet, 11 Refills, Maintenance, 03/16/21 11:27:00 EST, [facility] 1967, 162, cm, 03/10/21 14:17:00 EST, Height, [...] Personnel Name: Nanci Melendez MD Address: Address: [address] [place] [address]
--- OUTSIDE RECORDS SUMMARY | 2024-02-22 11:44 | XMS_ITS | Continuity of Care Document ---
Author Organization [facility] Address [address] [place] [address], [address] [address]- Care Team Providers Care Social Media Campaign Manager Name Role Phone Nanci Melendez MD Primary Care Physician [phone] [place] [facility] [place]s): 01/31/21 - 03/24/21 [facility] Susanenrique Sosasezmis [facility] [address], [address] [place], [place] [address] Attending Physician: Adela Sorto MD Referring Physician: Nanci Melendez MD Allergies, [...] [facility]# [id number] PT. TOLERATED INJ. WITHOUT COMPLICATIONS....CO 2Result Comment: [facility]# [id number] PT. TOLERATED INJ. WITHOUT COMPLICATIONS...CO 3Result Comment: [...] Gm, 10 Refills, Maintenance, 06/07/20 14:34:00 EST, [facility], 50, INHALE 2 PUFFS BY MOUTH 4 TIMES DAILY NEEDED FORWHEEZING, 161, cm, 02/10/20 14:26:00 EST, Height, 1... Start Date: 06/07/20 Status: Ordered albuterol-ipratropium 3 mg-0.5 mg/3 ml inhalation solution 3 mL, Neb, 4 times a day, PRN shortness of breath, # 180 mL, 11 Refills, Maintenance, 06/18/20 9:36:00 EDT, Solution, [facility], 3 mL Neb 4 times a day,PRN:shortness of breath, 161, cm, 06/18/20 9:18:00 EDT, Height, 106, kg, 09/11/18 13:37... Start Date: 06/18/20 Status: Ordered Apri 0.15 mg-0.03 mg oral tablet 1 tablet, By Mouth, Daily, start first tablet today, # 1 pack/packet, 3 Refills, Maintenance, 12/09/20 13:48:00 EDT, [facility], Partial fill [...] 0 Refills, Maintenance, 02/11/21 12:37:00 EST, ECCapsule, [facility], 163, cm, 01/01/21 10:10:00 EDT, Height Start Date: 02/11/21 Status: Ordered doxycycline hyclate 100 mg oral tablet 1 tablet = 100 mg, By Mouth, 2 times a day, # 28 tablet, 5 Refills, Maintenance, 12/31/20 8:23:00 EDT, [facility], Partial fill upon patient [...] each, Refills 5, Route to Pharmacy Electronically, [id number], [facility], 163, cm, 01/01/21 10:10:00 EDT, Height Start Date: 01/28/21 Status: Ordered Gonal-F 1050 units subcutaneous injection = 150 International_Units, Subcutaneous Injection, Daily, # 2 kit, 5 Refills, Maintenance, 218:23:00 EDT, [facility], Partial fill upon patient [...] 01/18/21 9:22:00 EDT, Route to Pharmacy Electronically, [facility], Partial fill upon patient request if the prescription is for... Start Date: 01/18/21 Status: Ordered Pregnyl 06266 u injectable powder for injection = 1,000 units, Intramuscular, Once, For use as trigger shot. Use 3 mL of diluent to reconstitute powder. Draw and administer 0.3 mL of reconsituted pregnyl for total dose of 1000 units., # 1 kit, 5 Refills, Soft Stop, 12/31/20 8:24:00 EDT, [facility]... Start Date: 12/31/20 Status: Ordered Multivitamins By Mouth, Daily, 0 Refills, Maintenance, 06/05/18 11:27:06 EST Start Date: 06/05/18 Status: Ordered progesterone 50 mg/mL intramuscular solution 50mg/ml 1 ml (sesame oil), Intramuscular, Daily, # 30 mL, 5 Refills, Maintenance, 02/03/21 11:55:00EDT, [facility], Partial fill upon patient request if the prescription is for a schedule II opioid drug., 163, cm, 01/01/21 10:10:00 E... Start Date: 02/03/21 Status: Ordered Prometrium 200 mg oral capsule See Instructions, vaginally 3 times a day, # 90 tablet, 5 Refills, Maintenance, 12/31/20 8:22:00 EDT, [facility], Partial fill upon patient request [...] 01/18/21 9:22:00 EDT, Route to Pharmacy Electronically, [facility], Partial fill upon [...] patch, 5 Refills, Maintenance, 12/31/20 8:23:00 EDT, [facility], Partial fill upon patient request if the prescription is for a schedule II opio... Start Date: 12/31/20 Status: Ordered yes yes, See Instructions, # 2 each, Refills 5, Tot. Refills 5, Maintenance, [place] Capped Insulin Syringe for lupron administration, 12/31/20 [...]
--- OUTSIDE RECORDS SUMMARY | 2024-02-22 11:44 | XMS_ITS | Continuity of Care Document ---
Author Organization [facility] Hina [employer] [facility] Address [address], 4t [place] [address]- Care Team Providers Care Manager Building Name Role Phone Al DIEGO, Nanci Segovia Primary Care Physician [phone] [place] [facility] [place] 06/22/20 - 06/29/20 [facility] [email or web address]ila[employer] [facility] [address], 4th [address] [place], [place] [address] Attending Physician: Paula Muñoz MD Referring Physician: Not on Staff, Referring [...] Recor ded 1Result Comment: [facility]# [id number] PT. TOLERATED INJ. WITHOUT COMPLICATIONS....CO 2Result Comment: [facility]# [id number] PT. TOLERATED INJ. WITHOUT COMPLICATIONS...CO 3Result Comment: [04/06/2016] pt. tolerated inj. without complications...CO 4Result Comment: [04/14/2015] Measles mumps rubella titer Medications Advair Diskus 500 mcg-50 mcg inhalation powder 1, puffs, Inhalation, 2 times a day, # 1 each, Refills 12, Tot. Refills 12, Maintenance, 12/24/19 13:40:00 EDT, Route to Pharmacy Electronically, [id number], [facility], 161, cm, 06/12/19 8:56:00 EDT, Height, 106,... Start Date: 12/24/19 Status: Ordered Albuterol (Eqv-ProAir HFA) 90 mcg/inh inhalation aerosol 2 puffs, Inhalation, 4 times a day, PRN NEEDED FOR WHEEZING, # 18 Gm, 10 Refills, Maintenance, 06/07/20 14:34:00 EST, [facility] 1969, 50, INHALE 2 PUFFS BY MOUTH 4 TIMES DAILY NEEDED FORWHEEZING, 161, cm, 02/10/20 14:26:00 EST, Height, 1... Start Date: 06/07/20 Status: Ordered albuterol-ipratropium 3 mg-0.5 mg/3 ml inhalation solution 3 mL, Neb, 4 times a day, PRN shortness of breath, # 180 mL, 11 Refills, Maintenance, 06/18/20 9:36:00 EDT, Solution, [facility], 3 mL Neb [...] 3 Refills, Maintenance, 12/24/19 13:41:00 EDT, ECCapsule, [facility], 161, cm, 06/12/19 [...] tablet, 3 Refills, Maintenance, 06/08/20 8:28:00 EST, [facility] 1969, 161, cm, 02/10/20 14:26:00 [...] tablet, 11 Refills, Maintenance, 02/10/20 14:25:00 EST, [facility] 1969, 161, c... Start [...] oldest [Reference Range]: 1 Height 161 cm (06/22/20 9:12 AM) Weight 112.56 kg (06/22/20 9:12 AM) Body Mass Index [18.5-24.99] 43.42 *>HHI* (06/22/20 9:12 AM) Blood Pressure [90-138/55-84 mm Hg] 106/ 64mm Hg (06/22/20 9:12 AM) Blood pressure sites Arm, right (06/22/20 9:12 AM) Weight Obtained Via Standing scale (06/22/20 9:12 AM) Social History Social History Type Response Smoking Status Never smoker; Tobacc o user in household: No entered on: 07/02/15 Sex
--- OUTSIDE RECORDS SUMMARY | 2024-02-22 11:44 | XMS_ITS | Continuity of Care Document ---
Author Organization [facility] Address [address] [facility], [address] [place] [address]- Care Team Providers Care Experimental Mechanic Spacecraft Name Role Phone Nanci Melendez MD Primary Care Physician Encounter [facility] [place] Date(s): 06/16/20 - 06/23/20 [facility] [address] [facility], 4[address] [place] [address] Attending Physician: Not on Staff, [...] ded 1Result Comment: [facility]# [id number] PT. TOLERATED INJ. WITHOUT COMPLICATIONS....CO 2Result Comment: [facility]# [id number] PT. TOLERATED INJ. WITHOUT COMPLICATIONS...CO 3Result Comment: [04/06/2016] pt. tolerated inj. without complications...CO 4Result Comment: [04/14/2015] Measles mumps rubella titer Medications Advair Diskus 500 mcg-50 mcg inhalation powder 1, puffs, Inhalation, 2 times a day, # 1 each, Refills 12, Tot. Refills 12, Maintenance, 12/24/19 13:40:00 EDT, Route to Pharmacy Electronically, [id number], [facility] 1967, 161, cm, 06/12/19 8:56:00 EDT, Height, 106,... Start Date: 12/24/19 Status: Ordered Albuterol (Eqv-ProAir HFA) 90 mcg/inh inhalation aerosol 2 puffs, Inhalation, 4 times a day, PRN NEEDED FOR WHEEZING, # 18 Gm, 10 Refills, Maintenance, 06/07/20 14:34:00 EST, [facility] 1967, 50, INHALE 2 PUFFS BY MOUTH 4 TIMES DAILY NEEDED FORWHEEZING, 161, cm, 02/10/20 14:26:00 EST, Height, 1... Start Date: 06/07/20 Status: Ordered albuterol-ipratropium 3 mg-0.5 mg/3 ml inhalation solution 3 mL, Neb, 4 times a day, PRN shortness of breath, # 180 mL, 11 Refills, Maintenance, 06/18/20 9:36:00 EDT, Solution, [facility] 1967, 3 mL Neb 4 [...] 3 Refills, Maintenance, 12/24/19 13:41:00 EDT, ECCapsule, [facility] 1967, 161, cm, 06/12/19 8:56:00 [...] tablet, 3 Refills, Maintenance, 06/08/20 8:28:00 EST, [facility] 1969, 161, cm, 02/10/20 14:26:00 [...] tablet, 11 Refills, Maintenance, 02/10/20 14:25:00 EST, [facility], 161, c... Start Date: [...] each, 11 Refills, Maintenance, 06/18/20 9:35:00 EDT, [facility], 161, cm, 219:18:00 EDT, [...] o user in household: No entered on: 4/1/16 Sex
--- OUTSIDE RECORDS SUMMARY | 2024-02-22 11:44 | XMS_ITS | Continuity of Care Document ---
Author Organization [facility] Address [address] [place] [address]- Care Team Providers Care Printing Manager Name Role Phone Nanci Melendez MD Primary Care Physician [phone] [facility] [place] Date(s): 06/12/19 - 06/19/19 [facility] [address] [place] [address]- [facility] Encounter Diagnosis Asthma(Discharge Diagnosis) - 06/12/19 GERD (gastroesophageal reflux disease)(Discharge Diagnosis) - 06/12/19 PCOS (polycystic ovarian syndrome)(Discharge Diagnosis) - 06/12/19 Sleep apnea(Discharge Diagnosis) - 06/12/19 Routine medical exam(Discharge Diagnosis) - 06/18/19 Attending Physician: Nanci Melendez MD Allergies, Adverse [...] Vaccine 11/21/89 Recor ded 1Result Comment: [facility]# [id number] PT. TOLERATED INJ. WITHOUT COMPLICATIONS....CO 2Result Comment: [facility]# [id number] PT. TOLERATED INJ. WITHOUT COMPLICATIONS...CO 3Result Comment: [04/06/2016] pt. tolerated inj. without complications...CO 4Result Comment: [04/14/2015] Measles mumps rubella titer Medications Advair Diskus 500 mcg-50 mcg inhalation powder 1, puffs, Inhalation, 2 times a day, # 60 Doses, Refills 12, Tot. Refills 12, Maintenance, 06/05/1910:25:22 EST, Route to Pharmacy Electronically, [id number], [facility] 1968 Start Date: 06/05/18 Status: Ordered albuterol 5 mg/mL (0.5%) inhalation solution 1 mL = 5 mg, Inhalation, Every 6 hours, PRN Wheezing/Shortness of Breath, # 360 mL, 3 Refills, Maintenance, 06/19/19 13:59:00 EDT, Inhalation Solution, [facility] 1968, 161, cm, 06/12/19 8:56:00 EDT, Height, 106, kg, 09/11/18 13:37:00 EDT, Dry W... Start Date: 06/19/19 Status: Ordered albuterol-ipratropium 3 mg-0.5 mg/3 ml [...] Refills, Maintenance, 06/12/19 9:48:00 EDT, EC Capsule, [facility] 1969, 161, cm, 06/12/19 8:56:00 EDT, Height, 106, kg, 09/11/18 13:37:00 EDT, Dry Weight Start Date: 06/12/19 Status: Ordered Flonase 1 sprays, Daily, 0 [...] DAYS, # 15 each, 5 Refills, Maintenance, [facility] 1967, 161, cm, 01/20/19 11:38:00 EDT, [...] 15:55:00 EST, Aerosol, Route to Pharmacy Electronically, [id number], [facility] 1969, 161, cm, 01/20/19 11:38:00 [...] Gastroparesis(Confirmed) Active H/O gastroesophageal reflux (GERD)(Confirmed) Active Hx laparoscopic cholecystectomy(Confirmed) 06/06/16 Active Obesity (BMI 30-39.9)(Confirmed) Active Moderate obstructive sleep apnea(Confirmed) Active Routine medical exam(Confirmed) Active PCOS (polycystic ovarian syndrome)(Confirmed) Active Urinary retention(Confirmed) Active Sleep apnea(Confirmed) Active Fatty liver(Confirmed) Active Diagnosis Diagnosis Type Effective Dates Health Status Cl inical Service Informant Asthma Discharge Diagnosis 06/12/19 GERD (gastroesophagea l reflux disease) Discharge Diagnosis 06/12/19 PCOS (polycystic ovarian syndrome) Discharge Diagnosis 06/12/19 Sleep apnea Discharge Diagnosis 06/12/19 Routine medical exam Discharge Diagnosis 06/18/19 Vital Signs Most recent to oldest [Reference Range]: 1 Height 161 cm (06/12/19 8:56 AM) Weight 103.5 kg (06/12/19 8:56 AM) Oxygen Saturation [94-100 %] 99 % (06/12/19 8:56 AM) Pulse Rate [55-90 bpm] 92 bpm *H* (06/12/19 8:56 AM) Body Mass Index [18.5-24.99] 39.93 *>HHI* (06/12/19 8:56 AM) Blood Pressure [90-138/55-84 mm Hg] 104/ 62mm Hg (06/12/19 8:56 AM) Respiratory Rate [16-30 br/min] 16 br/mi n (06/12/19 8:56 AM) Temperature [96.8-100.4 DegF] 98.5 DegF (06/12/19 8:56 AM) Mode of Delivery (Oxygen) Room air (06/12/19 8:56 AM) Blood pressure sites Arm, right (06/12/19 8:56 AM) Temperature Route Oral (06/12/19 8:56 AM) Weight Obtained Via Standing scale (06/12/19 8:56 AM) Social History Social History Type Response Smoking Status Never smoker; Tobacc o user in household: No entered on: 07/02/15 Sex
--- OUTSIDE RECORDS SUMMARY | 2024-02-22 11:44 | XMS_ITS | Continuity of Care Document ---
Author Organization [facility] Address [address] [place] [address]- Care Team Providers Care American Studies Professor Name Role Phone Nanci Melendez MD Primary Care Physician [phone] Encounter [facility] Date(s): 01/18/21 - 01/18/[address] [address] Discharge Disposition: A-D/C Home Attending Physician: Jalyn [...] 11/21/89 Recor ded 1Result Comment: [facility]# [id number] PT. TOLERATED INJ. WITHOUT COMPLICATIONS....CO 2Result Comment: [facility]# [id number] PT. TOLERATED INJ. WITHOUT COMPLICATIONS...CO 3Result Comment: [...] 12/24/19 13:40:00 EDT, Route to Pharmacy Electronically, [id number], [facility] 1967, 161, cm, 06/12/19 8:56:00 EDT, Height, 106,... Start Date: 12/24/19 Status: Ordered Albuterol (Eqv-ProAir HFA) 90 mcg/inh inhalation aerosol 2 puffs, Inhalation, 4 times a day, PRN NEEDED FOR WHEEZING, # 18 Gm, 10 Refills, Maintenance, 06/07/20 14:34:00 EST, [facility] 1967, 50, INHALE 2 PUFFS BY MOUTH 4 TIMES DAILY NEEDED FORWHEEZING, 161, cm, 02/10/20 14:26:00 EST, Height, 1... Start Date: 06/07/20 Status: Ordered albuterol-ipratropium 3 mg-0.5 mg/3 ml inhalation solution 3 mL, Neb, 4 times a day, PRN shortness of breath, # 180 mL, 11 Refills, Maintenance, 06/18/20 9:36:00 EDT, Solution, [facility], 3 mL Neb 4 times a day,PRN:shortness of breath, 161, cm, 06/18/20 9:18:00 EDT, Height, 106, kg, 09/11/18 13:37... Start Date: 06/18/20 Status: Ordered Apri 0.15 mg-0.03 mg oral tablet 1 tablet, By Mouth, Daily, start first tablet today, # 1 pack/packet, 3 Refills, Maintenance, 12/09/20 13:48:00 EDT, [facility], Partial fill upon patient request [...] Maintenance, 12/24/19 13:41:00 EDT, ECCapsule, [facility], 161, cm, 06/12/19 8:56:00 EDT, Height, 106, kg, 09/11/18 13:37:00 EDT, Dry Weight Start Date: 12/24/19 Status: Ordered doxycycline hyclate 100 mg oral tablet 1 tablet = 100 mg, By Mouth, 2 times a day, # 28 tablet, 5 Refills, Maintenance, 12/31/20 8:23:00 EDT, [facility], Partial [...] 02/20/21 8:26:00 EST, 12/31/20 8:23:00 EDT, Solution, [facility], Partial fill upon patient request if theprescription is for a schedule II opioid drug., 161... Start Date: 12/31/20 Stop Date: 02/20/21 Status: Ordered Gonal-F 1050 units subcutaneous injection = 150 International_Units, Subcutaneous Injection, Daily, # 2 kit, 5 Refills, Maintenance, :23:00 EDT, [facility], Partial [...] 02/20/21 8:26:00 EST, 12/31/20 8:22:00 EDT, Powder, [facility], Partial fill upon patient requestif [...] Refills, Maintenance, 02/10/20 14:25:00 EST, [facility] 1967, 161, c... Start Date: 02/10/20 [...] Refills, Maintenance, 06/18/20 9:35:00 EDT, [facility], 161, cm, 219:18:00 EDT, Height, 106, kg, 09/11/18 13:37:00 EDT... Start Date: 06/18/20 Status: Ordered oxyCODONE 5 mg oral tablet 5 mg, 1, tablet, By Mouth, Every 6 hours, PRN, # 8 tablet, Refills 0, Tot. Refills 0, Maintenance, Pain , Mild, 01/18/21 9:22:00 EDT, Route to Pharmacy Electronically, [facility], Partial fill upon patient request if the prescription is for... Start Date: 01/18/21 Status: Ordered Pregnyl 18645 u injectable powder for injection = 1,000 units, Intramuscular, Once, For use as trigger shot. Use 3 mL of diluent to reconstitute powder. Draw and administer 0.3 mL of reconsituted pregnyl for total dose of 1000 units., # 1 kit, 5 Refills, Soft Stop, 12/31/20 8:24:00 EDT, [facility]... Start Date: 12/31/20 Status: Ordered Multivitamins By Mouth, Daily, 0 Refills, Maintenance, 06/05/18 11:27:06 EST Start Date: 06/05/18 Status: Ordered Prometrium 200 mg oral capsule See Instructions, vaginally 3 times a day, # 90 tablet, 5 Refills, Maintenance, 12/31/20 8:22:00 EDT, [facility], Partial [...] EDT, Route to Pharmacy Electronically, [facility], Partial fill upon patient request [...] patch, 5 Refills, Maintenance, 12/31/20 8:23:00 EDT, [facility], Partial fill upon patient request if the prescription is for a schedule II opio... Start Date: 12/31/20 Status: Ordered yes yes, See Instructions, # 2 each, Refills 5, Tot. Refills 5, Maintenance, [place] Capped Insulin Syringe for lupron administration, 12/31/20 [...]
--- OUTSIDE RECORDS SUMMARY | 2024-02-22 11:44 | XMS_ITS | Continuity of Care Document ---
Author Organization [facility] ter Address [address] [place] [address]- Care Team Providers Care Supervising Architect Name Role Phone Nanci Melendez MD Primary Care Physician [phone] Encounter [facility] Date(s): 11/06/23 - 12/21/[address] [address] Attending Physician: Not on Staff, PCP Admitting Physician: Not on Staff, PCP Referring Physician: Not on Staff, PCP Allergies, Adverse Reactions, Alerts Substance Reaction Severity [...] ded 1Result Comment: [facility]# [id number] PT. TOLERATED INJ. WITHOUT COMPLICATIONS....CO 2Result Comment: [facility]# [id number] PT. TOLERATED INJ. WITHOUT COMPLICATIONS...CO 3Result Comment: [04/06/2016] pt. tolerated inj. without complications...CO 4Result Comment: [04/14/2015] Measles mumps rubella titer Medications albuterol 0.083% inhalation solution 3 mL = 2.5 mg, Inhalation, Every 6 hours, PRN for wheezing, # 100 each, 5 Refills, Maintenance, 06/19/22 15:15:00 EDT, Solution, [id number], replaces previous Rx for [...] tablet, 11 Refills, Maintenance, 08/18/21 16:40:00EDT, Tablet, [facility] [...] 03/12/23 11:30:00 EST, Route to Pharmacy Electronically, [id number], [facility][id number], 163, cm, 03/02/23 13:11:00 EST, Height, 128.2, kg, 02/05/22 1... 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, 08/30/18 17:26:09 EDT, Compound Start Date: 08/30/18 Status: Ordered norethindrone 0.35 mg oral tablet 1 tablet, By Mouth, Daily, # 84 tablet, 5 Refills, Maintenance, 08/16/22 9:41:00 EDT, [id number], 163, cm, 05/01/22 14:15:00 EST, Height, 128.2, kg, 02/05/22 12:22:00 EST, Dry Weight Start Date: 08/16/22 Status: Ordered ondansetron 4 mg oral tablet 1 tablet, By Mouth, Every 8 hours, PRN NEEDED FOR NAUSEA AND VOMITING FOR, # 15 tablet, 3 Refills, Maintenance, 09/14/23 16:11:00 EDT, [id number], 160, cm, 07/21/23 8:30:00 EDT, Height, 114, kg, 07/21/23 8:30:00 EDT, Dry Weight Start Date: 09/14/23 Stop Date: 09/19/23 Status: Ordered Multivitamins By Mouth, Daily, 0 Refills, Maintenance, 06/05/18 11:27:06 EST Start Date: 06/05/18 Status: Ordered Ventolin HFA 108 mcg/inh inhalation aerosol with adapter 2 puffs, Inhalation, Every 4 hours, PRN for wheezing, # 8 Gm, 5 Refills, Maintenance, 12/13/23 12:46:00 EDT, Aerosol, [id number], Partial fill upon [...] Personnel Name: Macario DIEGO, Adela Marroquin Position: [facility] MARKETING OPERATIONS ASSOCIATE MD Member Role: [employer] MARKETING OPERATIONS ASSOCIATE Physician Address: Address: [address] [place] [address], [address] [facility] [place], [place] [address] Name: Nanci Melendez MD Position: [facility] Physician - Primary Care Member Role: PCP Address: Address: [address] [place] [address] Name: Tammy Schuler Position: [facility] Outreach Member Role: [employer] Consulting Physician Care Team Related Persons Name: SEAN RITCHIE Address: Address: home [address] [place] [address] Name: DERRELL RITCHIE Address: home [address] [place] [id number] Name: DERRELL RITCHIE Address: home [address] [place] [address] Name: DERRELL RITCHIE Address: home [address] [facility] [facility] [address] [place] [address] Name: SHEBA CANO Address: home [address] [place] [address] Name: DAYANNA CANO Address: home [address] [place] [address]
--- OUTSIDE RECORDS SUMMARY | 2024-02-22 11:44 | XMS_ITS | Continuity of Care Document ---
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 TOLERATED INJ. WITHOUT COMPLICATIONS....CO 2Result Comment: [facility]# [id number] PT. TOLERATED INJ. WITHOUT COMPLICATIONS...CO 3Result Comment: [...] Gm, 10 Refills, Maintenance, 06/07/20 14:34:00 EST, [facility] 1967, 50, INHALE 2 PUFFS BY MOUTH 4 TIMES DAILY NEEDED FORWHEEZING, 161, cm, 02/10/20 14:26:00 EST, Height, 1... Start Date: 06/07/20 Status: Ordered albuterol-ipratropium 3 mg-0.5 mg/3 ml inhalation solution 3 mL, Neb, 4 times a day, PRN shortness of breath, # 180 mL, 11 Refills, Maintenance, 06/18/20 9:36:00 EDT, Solution, [facility], 3 mL Neb 4 times a day,PRN:shortness of breath, 161, cm, 06/18/20 9:18:00 EDT, Height, 106, kg, 09/11/18 13:37... Start Date: 06/18/20 Status: Ordered Apri 0.15 mg-0.03 mg oral tablet 1 tablet, By Mouth, Daily, start first tablet today, # 1 pack/packet, 3 Refills, Maintenance, 12/09/20 13:48:00 EDT, [facility], Partial fill upon patient [...] 0 Refills, Maintenance, 02/11/21 12:37:00 EST, ECCapsule, [facility], 163, cm, 01/01/21 10:10:00 EDT, Height Start Date: 02/11/21 Status: Ordered doxycycline hyclate 100 mg oral tablet 1 tablet = 100 mg, By Mouth, 2 times a day, # 28 tablet, 5 Refills, Maintenance, 12/31/20 8:23:00 EDT, [facility], Partial fill upon patient request [...] each, Refills 5, Route to Pharmacy Electronically, [id number], [facility], 163, cm, 01/01/21 10:10:00 EDT, Height Start Date: 01/28/21 Status: Ordered Gonal-F 1050 units subcutaneous injection = 150 International_Units, Subcutaneous Injection, Daily, # 2 kit, 5 Refills, Maintenance, 218:23:00 EDT, [facility], Partial fill upon patient request [...] tablet, 11 Refills, Maintenance, 03/16/21 11:27:00 EST, [facility], 162, c... Start Date: [...] each, 11 Refills, Maintenance, 06/18/20 9:35:00 EDT, [facility], 161, cm, 219:18:00 EDT, Height, 106, kg, 09/11/18 13:37:00 EDT... Start Date: 06/18/20 Status: Ordered oxyCODONE 5 mg oral tablet 5 mg, 1, tablet, By Mouth, Every 6 hours, PRN, # 8 tablet, Refills 0, Tot. Refills 0, Maintenance, Pain , Mild, 01/18/21 9:22:00 EDT, Route to Pharmacy Electronically, [facility] 1967, Partial fill upon patient request if the prescription is for... Start Date: 01/18/21 Status: Ordered Pregnyl 56051 u injectable powder for injection = 1,000 units, Intramuscular, Once, For use as trigger shot. Use 3 mL of diluent to reconstitute powder. Draw and administer 0.3 mL of reconsituted pregnyl for total dose of 1000 units., # 1 kit, 5 Refills, Soft Stop, 12/31/20 8:24:00 EDT, [facility]... Start Date: 12/31/20 Status: Ordered Multivitamins By Mouth, Daily, 0 Refills, Maintenance, 06/05/18 11:27:06 EST Start Date: 06/05/18 Status: Ordered progesterone 50 mg/mL intramuscular solution 50mg/ml 1 ml (sesame oil), Intramuscular, Daily, # 30 mL, 5 Refills, Maintenance, 02/03/21 11:55:00EDT, [facility], Partial fill upon patient request if the prescription is for a schedule II opioid drug., 163, cm, 01/01/21 10:10:00 E... Start Date: 02/03/21 Status: Ordered Prometrium 200 mg oral capsule See Instructions, vaginally 3 times a day, # 90 tablet, 5 Refills, Maintenance, 12/31/20 8:22:00 EDT, [facility], Partial fill upon patient request [...] 01/18/21 9:22:00 EDT, Route to Pharmacy Electronically, [facility], Partial fill upon patient [...] 5 Refills, Maintenance, 12/31/20 8:23:00 EDT, [facility], Partial fill upon patient request if the prescription is for a schedule II opio... Start Date: 12/31/20 Status: Ordered yes yes, See Instructions, # 2 each, Refills 5, Tot. Refills 5, Maintenance, [place] Capped Insulin Syringe for lupron administration, 12/31/20 [...]
--- OUTSIDE RECORDS SUMMARY | 2024-02-22 11:44 | XMS_ITS | Continuity of Care Document ---
Author Organization [facility] [employer] [facility] Address [address], [place] [address]- Care Team Providers Care Network Systems Operator Name Role Phone Nanci Melendez MD Primary Care Physician Encounter [facility] Date(s): 01/04/22 - 03/08/22 [facility] [address], [address] [place], [place] [address] Attending Physician: Estela Rosales MD Allergies, [...] 11/21/89 Recor ded 1Result Comment: [facility]# [id number] PT. TOLERATED INJ. WITHOUT COMPLICATIONS....CO 2Result Comment: [facility]# [id number] PT. TOLERATED INJ. WITHOUT COMPLICATIONS...CO 3Result Comment: [04/06/2016] pt. tolerated inj. without complications...CO 4Result Comment: [04/14/2015] Measles mumps rubella titer Medications acetaminophen 325 mg oral tablet 650 mg, By Mouth, Every 4 hours, PRN, not to exceed 4000 mg/day, # 60 tablet, Refills 0, Tot. Refills 0, Maintenance, Pain , Mild, 02/08/22 8:05:00 EST, Route to Pharmacy Electronically, [facility] 1966, Partial fill upon patient request if the... Start Date: 02/08/22 Status: Ordered Albuterol (Eqv-ProAir HFA) 90 mcg/inh inhalation aerosol See Instructions, INHALE 2 PUFFS BY MOUTH 4 TIMES DAILY NEEDED FOR WHEEZING, # 9 Gm, 6 Refills, 08/17/21 9:51:00 EDT, [facility] 1966, 25, INHALE 2 PUFFS BY MOUTH 4 TIMES DAILY NEEDED FORWHEEZING, 162, cm, 08/03/21 16:59:00 EDT, Height, 1... Start Date: 08/17/21 Status: Ordered albuterol 0.083% inhalation solution 3 mL = 2.5 mg, Inhalation, Every 6 hours, PRN for wheezing, # 100 each, 5 Refills, Maintenance, 08/17/21 9:51:00 EDT, Solution, [facility] 1966, replaces previous Rx for [...] daily, # 90 capsule, 1 Refills, [facility] 1967, 162, cm, 09/16/21 15:34:00 EDT, Height, 107.4, kg, 08/20/21 8:43:00 EDT, Dry Weight Start Date: 09/23/21 Status: Ordered dicloxacillin 500 mg oral capsule 1 capsule = 500 mg, By Mouth, Every 6 hours, for 10 days, # 40 capsule, 0 Refills, Acute 03/11/22 15:57:00 EST, 03/01/22 15:57:00 EST, Capsule, [facility] 1966, Partial fill upon patient request if the prescription is for a schedule II opioid dr... Start Date: 03/01/22 Stop Date: 03/11/22 Status: Ordered Diflucan 150 mg oral tablet 1 tablet = 150 mg, By Mouth, Once, # 1 tablet, 0 Refills, Soft Stop, 03/01/22 15:59:00 EST, Tablet,[facility], Partial fill upon patient [...] 11 Refills, Maintenance, 08/18/21 16:40:00EDT, Tablet, [facility] 1966, Partial fill upon patient [...] 08/17/21 9:51:00 EDT, Route to Pharmacy Electronically, [id number], [facility] 1967, 162, cm, 08/03/21 16:59:00 EDT, Height, 110, kg, 08/03/21 1... Start Date: 08/17/21 Status: Ordered ibuprofen 800 mg oral tablet 800 mg, 1, tablet, By Mouth, Every 8 hours, PRN, not to exceed 3200 mg/day with food or milk, # 40 tablet, Refills 0, Tot. Refills 0, Maintenance, Pain , Moderate, 02/08/22 8:05:00 EST, Route to Pharmacy Electronically, [facility], Partial... Start Date: 02/08/22 [...] Team Personnel Name: Nanci Melendez MD [facility] Primary Care Physician Member Role: PCP Address: Address: [address] [place] [address]- Care Team Related Persons Name: SEAN RITCHIE Address: [address] Address: home [address] [place] [id number] Name: DERRELL RITCHIE Address: home [address] [place] [address] Name: DERRELL RITCHIE Address: home [address] [facility] [address] [place] [address] Name: DERRELL RITCHIE Address: home [address] [facility] [address] [place] [address] Name: SHEBA CANO Address: home [address] [place] [address] Name: DAYANNA CANO Address: home [address] [place] [address]
--- OUTSIDE RECORDS SUMMARY | 2024-02-22 11:45 | XMS_ITS | Continuity of Care Document ---
Author Organization [facility] e [facility] Address Unknown Care Team Providers Care Accounts Receivable Accountant Name Role Phone Nanci Melendez MD Primary Care Physician [facility] [facility] Date(s): 05/03/21 - 05/10/21 [facility] Attending Physician: Tiffanie Lopes MD Referring Physician: Jalyn Cabrera MD Allergies, [...] ded 1Result Comment: [facility]# [id number] PT. TOLERATED INJ. WITHOUT COMPLICATIONS....CO 2Result Comment: [facility]# [id number] PT. TOLERATED INJ. WITHOUT COMPLICATIONS...CO 3Result Comment: [...] Gm, 10 Refills, Maintenance, 06/07/20 14:34:00 EST, [facility], 50, INHALE 2 PUFFS BY MOUTH 4 TIMES DAILY NEEDED FORWHEEZING, 161, cm, 02/10/20 14:26:00 EST, Height, 1... Start Date: 06/07/20 Status: Ordered albuterol 0.083% inhalation solution 3 mL = 2.5 mg, Inhalation, Every 6 hours, PRN for wheezing, # 25 each, 0 Refills, Maintenance, 04/04/21 12:33:00 EST, Solution, [facility] 1966, replaces previous Rx for albuterol-ipatropium solution, 162, cm, 03/10/21 14:17:00 EST, Height, 105.... Start Date: 04/04/21 Status: Ordered albuterol-ipratropium 3 mg-0.5 mg/3 ml inhalation solution 3 mL, Neb, 4 times a day, PRN shortness of breath, # 180 mL, 2 Refills, Maintenance, 04/04/21 8:55:00 EST, Solution, [facility] 1967, 3 mL Neb 4 times a day,PRN:shortness of breath, 162, cm, 03/10/21 14:17:00 EST, Height, 105.2, kg, 02/12/21 17:... Start Date: 04/04/21 Status: Ordered Apri 0.15 mg-0.03 mg oral tablet 1 tablet, By Mouth, Daily, start first tablet today, # 1 pack/packet, 3 Refills, Maintenance, 12/09/20 13:48:00 EDT, [facility], Partial fill [...] 0 Refills, Maintenance, 02/11/21 12:37:00 EST, ECCapsule, [facility] 1967, 163, cm, 01/01/21 10:10:00 EDT, Height Start Date: 02/11/21 Status: Ordered Endometrin 100 mg vaginal insert = 100 mg, Vaginally, 3 times a day, to add on day of transfer, # 90 supp, 5 Refills, Maintenance, 04/28/21 9:20:00 EST, [facility], Partial fill upon patient [...] each, Refills 5, Route to Pharmacy Electronically, [id number], [facility] 1967, 163, cm, 01/01/21 10:10:00 [...] EST, [facility], 162, c... Start Date: [...] 01/18/21 9:22:00 EDT, Route to Pharmacy Electronically, [facility] 1966, Partial fill upon patient request if the prescription is for... Start Date: 01/18/21 Status: Ordered Multivitamins By Mouth, Daily, 0 Refills, Maintenance, 06/05/18 11:27:06 EST Start Date: 06/05/18 Status: Ordered progesterone 50 mg/mL intramuscular solution 50mg/ml 1 ml (sesame oil), Intramuscular, Daily, # 30 mL, 5 Refills, Maintenance, 04/28/21 9:19:00 EST, [facility], Partial fill upon patient request if the prescription is for a schedule II opioid drug., 162, cm, 03/10/21 14:17:00 ES... Start Date: 04/28/21 Status: Ordered Provera 10 mg oral tablet 10 mg, 1, tablet, By Mouth, Daily, # 10 tablet, Refills 0, Tot. Refills 0, Maintenance, 04/04/21 10:58:00 EST, Route to Pharmacy Electronically, [facility] 1966, Partial fill upon patient [...] 01/18/21 9:22:00 EDT, Route to Pharmacy Electronically, [facility] 1966, Partial fill upon patient [...] patch, 5 Refills, Maintenance, 04/28/21 9:19:00 EST, [facility], Partial fill upon patient [...] oldest [Reference Range]: 1 Height 162 cm (05/03/21 9:55 AM) Weight 109.2 kg (05/03/21 9:55 AM) Pulse Rate [55-90 bpm] 78 bpm (05/03/21 9:55 AM) Body Mass Index [18.5-24.99] 41.61 *>HHI* (05/03/21 9:55 AM) Blood Pressure [90-138/55-84 mm Hg] 112/ 64mm Hg (05/03/21 9:55 AM) Blood pressure sites Arm, right (05/03/21 9:55 AM) Weight Obtained Via Standing scale (05/03/21 9:55 AM) Social History Social History Type Response Smoking Status Never smoker; Tobacc o user in household: No entered on: 07/02/15 Sex
--- OUTSIDE RECORDS SUMMARY | 2024-02-22 11:45 | XMS_ITS | Continuity of Care Document ---
Author Organization [facility] Address Unknown Care Team Providers Care Nurse Practitioner Name Role Phone Al DIEGO, Nanci Segovia Primary Care Physician [phone] Encounter [facility] Date(s): 12/03/20 - 01/02/21 [facility] Allergies, Adverse Reactions, Alerts [...] Virus Vaccine 11/21/89 Recor ded 1Result Comment: [facility]# [id number] PT. TOLERATED INJ. WITHOUT COMPLICATIONS....CO 2Result Comment: [facility]# [id number] PT. TOLERATED INJ. WITHOUT COMPLICATIONS...CO 3Result Comment: [...] 12/24/19 13:40:00 EDT, Route to Pharmacy Electronically, [id number], [facility] 1967, 161, cm, 06/12/19 8:56:00 EDT, Height, 106,... Start Date: 12/24/19 Status: Ordered Albuterol (Eqv-ProAir HFA) 90 mcg/inh inhalation aerosol 2 puffs, Inhalation, 4 times a day, PRN NEEDED FOR WHEEZING, # 18 Gm, 10 Refills, Maintenance, 06/07/20 14:34:00 EST, [facility] 1967, 50, INHALE 2 PUFFS BY MOUTH 4 TIMES DAILY NEEDED FORWHEEZING, 161, cm, 02/10/20 14:26:00 EST, Height, 1... Start Date: 06/07/20 Status: Ordered albuterol-ipratropium 3 mg-0.5 mg/3 ml inhalation solution 3 mL, Neb, 4 times a day, PRN shortness of breath, # 180 mL, 11 Refills, Maintenance, 06/18/20 9:36:00 EDT, Solution, [facility] 1967, 3 mL Neb 4 times a day,PRN:shortness of breath, 161, cm, 06/18/20 9:18:00 EDT, Height, 106, kg, 09/11/18 13:37... Start Date: 06/18/20 Status: Ordered Apri 0.15 mg-0.03 mg oral tablet 1 tablet, By Mouth, Daily, start first tablet today, # 1 pack/packet, 3 Refills, Maintenance, 12/09/20 13:48:00 EDT, [facility], Partial fill upon patient [...] tablet, 5 Refills, Maintenance, 12/31/20 8:23:00 EDT, [facility], Partial fill upon patient [...] 02/20/21 8:26:00 EST, 12/31/20 8:23:00 EDT, Solution, [facility], Partial fill upon patient request if theprescription is for a schedule II opioid drug., 161... Start Date: 12/31/20 Stop Date: 02/20/21 Status: Ordered Gonal-F 1050 units subcutaneous injection = 150 International_Units, Subcutaneous Injection, Daily, # 2 kit, 5 Refills, Maintenance, :23:00 EDT, [facility], Partial fill upon patient request if the prescription is for a schedule II opioid drug., 150 International_Un... Start Date: 12/31/20 Status: Ordered Leuprolide for trigger Leuprolide for trigger, 40 units, Subcutaneous Injection, Once, # 1 each, Refills 0, Tot. Refills 0, Soft Stop, 12/31/20 8:22:00 EDT, Compound, 161, cm, 10/12/20 10:38:00 EDT, Height Start Date: 12/31/20 Status: Ordered Lidocaine Viscous 2% solution 1 application, Topically, 4 times a day, PRN Sore Throat, # 100 mL, 0 Refills, Acute 01/08/21 10:54:00 EDT, 12/21/20 10:53:00 EDT, Solution, [place] [id number], Partial fill upon patient request if the prescription is for a schedule II opioid drug.... Start Date: 12/21/20 Stop Date: 01/08/21 Status: Ordered Menopur 75 intl units subcutaneous injection = 75 International_Units, Subcutaneous Injection, Daily, # 10 each, 5 Refills, Acute 02/20/21 8:26:00 EST, 12/31/20 8:22:00 EDT, Powder, [facility], Partial fill upon patient requestif [...] each, 11 Refills, Maintenance, 06/18/20 9:35:00 EDT, [facility], 161, cm, 219:18:00 EDT, Height, 106, kg, 09/11/18 13:37:00 EDT... Start Date: 06/18/20 Status: Ordered Pregnyl 86469 u injectable powder for injection = 1,000 units, Intramuscular, Once, For use as trigger shot. Use 3 mL of diluent to reconstitute powder. Draw and administer 0.3 mL of reconsituted pregnyl for total dose of 1000 units., # 1 kit, 5 Refills, Soft Stop, 12/31/20 8:24:00 EDT, [facility]... Start Date: 12/31/20 Status: Ordered Multivitamins By Mouth, Daily, 0 Refills, Maintenance, 06/05/18 11:27:06 EST Start Date: 06/05/18 Status: Ordered Prometrium 200 mg oral capsule See Instructions, vaginally 3 times a day, # 90 tablet, 5 Refills, Maintenance, 12/31/20 8:22:00 EDT, [facility], Partial fill upon patient [...] patch, 5 Refills, Maintenance, 12/31/20 8:23:00 EDT, [facility], Partial fill upon patient request if the prescription is for a schedule II opio... Start Date: 12/31/20 Status: Ordered yes yes, See Instructions, # 2 each, Refills 5, Tot. Refills 5, Maintenance, [place] Capped Insulin Syringe for lupron administration, 12/31/20 [...]
--- OUTSIDE RECORDS SUMMARY | 2024-02-22 11:45 | XMS_ITS | Continuity of Care Document ---
Author Organization [facility] [employer] [facility] Address [address] [place] [address], [address] [place] [address]- Care Team Providers Care Parquet Floor Layer'S Helper Name Role Phone Al DIEGO, Nanci Segovia Primary Care Physician [phone] [place] [facility] Date(s): 01/18/22 - 01/25/22 [facility] [employer] [facility] [address] [facility] [place], [place] [address] Attending Physician: Marilee Naqvi DO Referring Physician: Estela Rosales MD Allergies, Adverse [...] Recor ded 1Result Comment: [facility]# [id number] PT. TOLERATED INJ. WITHOUT COMPLICATIONS....CO 2Result Comment: [facility]# [id number] PT. TOLERATED INJ. WITHOUT COMPLICATIONS...CO 3Result Comment: [04/06/2016] pt. tolerated inj. without complications...CO 4Result Comment: [04/14/2015] Measles mumps rubella titer Medications Albuterol (Eqv-ProAir HFA) 90 mcg/inh inhalation aerosol See Instructions, INHALE 2 PUFFS BY MOUTH 4 TIMES DAILY NEEDED FOR WHEEZING, # 9 Gm, 6 Refills, 08/17/21 9:51:00 EDT, [facility] 1967, 25, INHALE 2 PUFFS BY MOUTH 4 TIMES DAILY NEEDED FORWHEEZING, 162, cm, 08/03/21 16:59:00 EDT, Height, 1... Start Date: 08/17/21 Status: Ordered albuterol 0.083% inhalation solution 3 mL = 2.5 mg, Inhalation, Every 6 hours, PRN for wheezing, # 100 each, 5 Refills, Maintenance, 08/17/21 9:51:00 EDT, Solution, [facility] 1966, replaces previous Rx for [...] once daily, # 90 capsule, 1 Refills, [facility] 1967, 162, cm, 09/16/21 15:34:00 [...] tablet, 11 Refills, Maintenance, 08/18/21 16:40:00EDT, Tablet, [facility] 1967, Partial fill upon [...] 08/17/21 9:51:00 EDT, Route to Pharmacy Electronically, [id number], [facility] 1967, 162, cm, 08/03/21 16:59:00 [...] 11 Refills, Maintenance, 03/16/21 11:27:00 EST, [facility] 1967, 162, cm, 03/10/21 14:17:00 [...] 11 Refills, Maintenance, 06/18/20 9:35:00 EDT, [facility] 1967, 161, cm, :18:00 EDT, [...] Name: Nanci Melendez MD Address: Address: [address] [place] [address]
--- OUTSIDE RECORDS SUMMARY | 2024-02-22 11:45 | XMS_ITS | Continuity of Care Document ---
Author Organization [facility] [employer]ina [employer] [facility] Address [address] [place] [address], [place] [address]- Care Team Providers Care Charge Authorizer Name Role Phone Al DIEGO, Nanci Segovia Primary Care Physician [facility] Date(s): 12/19/21 - 12/26/21 [facility] [address] [facility], [address] [place] [address]- Attending Physician: Adela Sorto MD Referring Physician: [...] 1Result Comment: [facility]# [id number] PT. TOLERATED INJ. WITHOUT COMPLICATIONS....CO 2Result Comment: [facility]# [id number] PT. TOLERATED INJ. WITHOUT COMPLICATIONS...CO 3Result Comment: [...] 5 Refills, Maintenance, 08/17/21 9:51:00 EDT, Solution, [facility] 1966, replaces previous Rx for albuterol-ipatropium [...] once daily, # 90 capsule, 1 Refills, [facility], 162, cm, 09/16/21 15:34:00 EDT, [...] 16:40:00EDT, Tablet, [facility], Partial fill upon [...] 08/17/21 9:51:00 EDT, Route to Pharmacy Electronically, [id number], [facility], 162, cm, 08/03/21 [...] tablet, 11 Refills, Maintenance, 03/16/21 11:27:00 EST, [facility], 162, cm, 03/10/21 14:17:00 [...] each, 11 Refills, Maintenance, 06/18/20 9:35:00 EDT, [facility], 161, cm, :18:00 [...] x disease)(Confirmed) Active Gastroparesis(Confirmed) Active Gastroparesis(Confirmed) Active Gestational diabetes(Confirmed) Active Headache(Confirmed) Active Palpitations(Confirmed) Active 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 PCOS (polycystic ovarian syndrome)(Confirmed) Active Severe obesity(Confirmed) Active Sleep apnea(Confirmed) Active Fatty liver(Confirmed) Active Vital Signs Most recent to oldest [Reference Range]: 1 Height 162 cm (12/19/21 10:25 AM) Weight 116.36 kg (12/19/21 10:25 AM) Body Mass Index [18.5-24.99] 44.34 *>HHI* (12/19/21 10:25 AM) Blood Pressure [90-138/55-84 mm Hg] 108/ 60mm Hg (12/19/21 10:25 AM) Blood pressure sites Arm, right (12/19/21 10:25 AM) Weight Obtained Via Standing scale (12/19/21 10:25 AM) Social History Social History Type Response Smoking Status Never smoker; Tobacc o user in household: No entered on: 07/02/15 Sex Care Team Personnel Name: Nanci Melendez MD Address: [address] [place] [address]
--- OUTSIDE RECORDS SUMMARY | 2024-02-22 11:45 | XMS_ITS | Continuity of Care Document ---
Author Organization [facility] Address [address] [place] [address]- Care Team Providers Care Retail Store Clerk Name Role Phone Nanci Melendez MD Primary Care Physician [facility] Date(s): 07/17/23 - 08/16/23 [facility] [address] [place], [place] [address] Allergies, Adverse Reactions, Alerts Substance Reaction [...] 1Result Comment: [facility]# [id number] PT. TOLERATED INJ. WITHOUT COMPLICATIONS....CO 2Result Comment: [facility]# [id number] PT. TOLERATED INJ. WITHOUT COMPLICATIONS...CO 3Result Comment: [04/06/2016] pt. tolerated inj. without complications...CO 4Result Comment: [04/14/2015] Measles mumps rubella titer Medications albuterol 0.083% inhalation solution 3 mL = 2.5 mg, Inhalation, Every 6 hours, PRN for wheezing, # 100 each, 5 Refills, Maintenance, 06/19/22 15:15:00 EDT, Solution, [facility]/pharmacy #[id number], replaces previous Rx for albuterol-ipatropium solution, 163, cm, 05/01/22 14:15:00 EST, Height, 128.2,... Start Date: 06/19/22 Status: Ordered Dexilant 60 mg oral delayed release capsule See Instructions, Take 1 capsule by mouth once daily, # 90 capsule, 0 Refills, 03/14/22 14:26:00 EST, [facility], 163, cm, 02/27/22 9:06:00 [...] tablet, 11 Refills, Maintenance, 08/18/21 16:40:00EDT, Tablet, [facility], Partial fill upon [...] 03/12/23 11:30:00 EST, Route to Pharmacy Electronically, [id number], [facility]/pharmacy #[id number], 163, cm, 03/02/23 13:11:00 EST, Height, 128.2, kg, 02/05/22 1... 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, 08/30/18 17:26:09 EDT, Compound Start Date: 08/30/18 Status: Ordered norethindrone 0.35 mg oral tablet 1 tablet, By Mouth, Daily, # 84 tablet, 5 Refills, Maintenance, 08/16/22 9:41:00 EDT, [facility], 163, cm, 05/01/22 14:15:00 EST, Height, 128.2, kg, 02/05/22 12:22:00 EST, Dry Weight Start Date: 08/16/22 Status: Ordered ondansetron 4 mg oral tablet See Instructions, TAKE 1 TABLET BY MOUTH EVERY 8 HOURS NEEDED FOR NAUSEA AND VOMITING FOR 5 DAYS, # 15 each, 11 Refills, Maintenance, 06/19/22 15:15:00 EDT, [facility]/pharmacy #[id number], 163, cm, 05/01/22 14:15:00 EST, Height, 128.2, kg, 02/05/22 12:22:00 ES... Start Date: 06/19/22 Status: Ordered Multivitamins By Mouth, Daily, 0 Refills, Maintenance, 06/05/18 11:27:06 EST Start Date: 06/05/18 Status: Ordered Ventolin HFA 108 mcg/inh inhalation aerosol with adapter 2 puffs, Inhalation, Every 4 hours, PRN for wheezing, # 8 Gm, 5 Refills, Maintenance, 03/12/23 11:35:00 EST, Aerosol, [facility]/pharmacy #[id number], Partial fill upon patient request [...] Personnel Name: Macario DIEGO, Adela Marroquin Position: [facility] INSTITUTIONAL RESEARCH COORDINATOR Member Role: Lifetime INSTITUTIONAL RESEARCH COORDINATOR Physician Address: Address: [address] [place] [address], [address] Name: Nanci Melendez MD Position: [facility] Physician - Primary Care Member Role: PCP Address: Address: [address] [place] [address] Care Team Related Persons Name: SEAN RITCHIE Address: [address] Address: home [address] [place] [address] Name: DERRELL RITCHIE Address: home [address] [facility] [address] [place] [address] Name: DERRELL RITCHIE Address: home [address] [facility] [address] [place] [address] Name: DERRELL RITCHIE Address: home [address] [facility] [address] [place] [address] Name: SHEBA CANO Address: home [address] [place] [address] Name: DAYANNA CANO Address: home [address] [place] [id number]
--- OUTSIDE RECORDS SUMMARY | 2024-02-22 11:45 | XMS_ITS | Continuity of Care Document ---
Author Organization [facility] Address [address] [place] [address]- Care Team Providers Care Olive Pitter Name Role Phone Nanci Melendez MD Primary Care Physician Encounter [facility] Date(s): 12/31/19 - 01/30/[address] [facility] [place] [facility] [address] [place] [address]- [facility] Allergies, Adverse Reactions, Alerts Substance Reaction Severity [...] [facility]# [id number] PT. TOLERATED INJ. WITHOUT COMPLICATIONS....CO 2Result Comment: [facility]# [id number] PT. TOLERATED INJ. WITHOUT COMPLICATIONS...CO 3Result Comment: [04/06/2016] pt. tolerated inj. without complications...CO 4Result Comment: [04/14/2015] Measles mumps rubella titer Medications Advair Diskus 500 mcg-50 mcg inhalation powder 1, puffs, Inhalation, 2 times a day, # 1 each, Refills 12, Tot. Refills 12, Maintenance, 12/24/19 13:40:00 EDT, Route to Pharmacy Electronically, [id number], [facility], 161, cm, 06/12/19 8:56:00 EDT, Height, 106,... Start Date: 12/24/19 Status: Ordered albuterol 0.083% inhalation solution 3 mL = 2.5 mg, Inhalation, Every 6 hours, PRN for wheezing, # 60 each, 11 Refills, Maintenance, 12/24/19 13:40:00 EDT, Solution, [facility], 161, cm, 06/12/19 8:56:00 EDT, [...] 3 Refills, Maintenance, 12/24/19 13:41:00 EDT, ECCapsule, [facility], 161, cm, 06/12/19 8:56:00 EDT, Height, 106, kg, 09/11/18 13:37:00 EDT, Dry Weight Start Date: 12/24/19 Status: Ordered diclofenac sodium 75 mg oral delayed release tablet 1 tablet = 75 mg, By Mouth, 2 times a day, PRN for pain, TAKE WITH FOOD, # 28 tablet, 1 Refills, Maintenance, 12/16/19 9:22:00 EDT, Tablet, [facility], 161, cm, 06/12/19 8:56:00 EDT, [...] each, 5 Refills, Maintenance, 12/24/19 13:58:00 EDT, [facility], 161, cm, :56:00 EDT, Height, [...] 15:55:00 EST, Aerosol, Route to Pharmacy Electronically, [id number], [facility], 161, cm, 01/20/19 11:38:00 EDT,... Start Date: 05/19/19 Status: Ordered ProAir HFA 90 mcg/inh inhalation aerosol with adapter 180 mcg, 2, puffs, Inhalation, 4 times a day, # 1 each, Refills 4, Tot. Refills 4, Maintenance, 12/24/19 13:40:00 EDT, Inhaler, Route to Pharmacy Electronically, [id number],[facility], 161, cm, 06/12/19 8:56:00 ED... [...]
--- OUTSIDE RECORDS SUMMARY | 2024-02-22 11:45 | XMS_ITS | Continuity of Care Document ---
Author Organization [facility] Address Unknown Care Team Providers Care Window Trimmer Apprentice Name Role Phone Nanci Melendez MD Primary Care Physician Encounter [facility] Date(s): 02/03/21 - 03/24/21 [facility] Attending Physician: Tiffanie Lopes [...] ded 1Result Comment: [facility]# [id number] PT. TOLERATED INJ. WITHOUT COMPLICATIONS....CO 2Result Comment: [facility]# [id number] PT. TOLERATED INJ. WITHOUT COMPLICATIONS...CO 3Result Comment: [...] Gm, 10 Refills, Maintenance, 06/07/20 14:34:00 EST, [facility], 50, INHALE 2 PUFFS BY MOUTH 4 TIMES DAILY NEEDED FORWHEEZING, 161, cm, 02/10/20 14:26:00 EST, Height, 1... Start Date: 06/07/20 Status: Ordered albuterol-ipratropium 3 mg-0.5 mg/3 ml inhalation solution 3 mL, Neb, 4 times a day, PRN shortness of breath, # 180 mL, 11 Refills, Maintenance, 06/18/20 9:36:00 EDT, Solution, [facility], 3 mL Neb 4 times a day,PRN:shortness of breath, 161, cm, 06/18/20 9:18:00 EDT, Height, 106, kg, 09/11/18 13:37... Start Date: 06/18/20 Status: Ordered Apri 0.15 mg-0.03 mg oral tablet 1 tablet, By Mouth, Daily, start first tablet today, # 1 pack/packet, 3 Refills, Maintenance, 12/09/20 13:48:00 EDT, [facility], Partial fill upon patient [...] 0 Refills, Maintenance, 02/11/21 12:37:00 EST, ECCapsule, [facility], 163, cm, 01/01/21 10:10:00 EDT, Height Start Date: 02/11/21 Status: Ordered doxycycline hyclate 100 mg oral tablet 1 tablet = 100 mg, By Mouth, 2 times a day, # 28 tablet, 5 Refills, Maintenance, 12/31/20 8:23:00 EDT, [facility], Partial fill upon patient [...] each, Refills 5, Route to Pharmacy Electronically, [id number], [facility], 163, cm, 01/01/21 10:10:00 EDT, Height Start Date: 01/28/21 Status: Ordered Gonal-F 1050 units subcutaneous injection = 150 International_Units, Subcutaneous Injection, Daily, # 2 kit, 5 Refills, Maintenance, 218:23:00 EDT, [facility], Partial fill upon patient [...] tablet, 11 Refills, Maintenance, 03/16/21 11:27:00 EST, [facility], 162, c... Start Date: [...] each, 11 Refills, Maintenance, 06/18/20 9:35:00 EDT, [facility], 161, cm, 219:18:00 EDT, Height, 106, kg, 09/11/18 13:37:00 EDT... Start Date: 06/18/20 Status: Ordered oxyCODONE 5 mg oral tablet 5 mg, 1, tablet, By Mouth, Every 6 hours, PRN, # 8 tablet, Refills 0, Tot. Refills 0, Maintenance, Pain , Mild, 01/18/21 9:22:00 EDT, Route to Pharmacy Electronically, [facility] 1966, Partial fill upon patient request if the prescription is for... Start Date: 01/18/21 Status: Ordered Pregnyl 32560 u injectable powder for injection = 1,000 units, Intramuscular, Once, For use as trigger shot. Use 3 mL of diluent to reconstitute powder. Draw and administer 0.3 mL of reconsituted pregnyl for total dose of 1000 units., # 1 kit, 5 Refills, Soft Stop, 12/31/20 8:24:00 EDT, [facility]... Start Date: 12/31/20 Status: Ordered Multivitamins By Mouth, Daily, 0 Refills, Maintenance, 06/05/18 11:27:06 EST Start Date: 06/05/18 Status: Ordered progesterone 50 mg/mL intramuscular solution 50mg/ml 1 ml (sesame oil), Intramuscular, Daily, # 30 mL, 5 Refills, Maintenance, 02/03/21 11:55:00EDT, [facility], Partial fill upon patient request if the prescription is for a schedule II opioid drug., 163, cm, 01/01/21 10:10:00 E... Start Date: 02/03/21 Status: Ordered Prometrium 200 mg oral capsule See Instructions, vaginally 3 times a day, # 90 tablet, 5 Refills, Maintenance, 12/31/20 8:22:00 EDT, [facility], Partial fill upon patient request [...] 01/18/21 9:22:00 EDT, Route to Pharmacy Electronically, [facility] 1966, Partial fill upon patient [...] patch, 5 Refills, Maintenance, 12/31/20 8:23:00 EDT, [facility], Partial fill upon patient request if the prescription is for a schedule II opio... Start Date: 12/31/20 Status: Ordered yes yes, See Instructions, # 2 each, Refills 5, Tot. Refills 5, Maintenance, Sarpy Capped Insulin Syringe for lupron administration, 12/31/20 [...]
--- OUTSIDE RECORDS SUMMARY | 2024-02-22 11:45 | XMS_ITS | Continuity of Care Document ---
Author Organization [facility] Address [address] [place] [address], [address] [address]- Care Team Providers Care Election Supervisor Name Role Phone Al DIEGO, Nanci Segovia Primary Care Physician [phone] [place] [facility] Date(s): 11/14/21 - 11/21/21 [facility] Susanenrique Sosa[facility] [address] [facility] [place], [place] [address] Attending Physician: Raymundo DIEGO [OB], Neli Gunter Referring Physician: Estela Rosales MD Allergies, Adverse [...] Recor ded 1Result Comment: [facility]# [id number] PT. TOLERATED INJ. WITHOUT COMPLICATIONS....CO 2Result Comment: [facility]# [id number] PT. TOLERATED INJ. WITHOUT COMPLICATIONS...CO 3Result Comment: [04/06/2016] pt. tolerated inj. without complications...CO 4Result Comment: [04/14/2015] Measles mumps rubella titer Medications Albuterol (Eqv-ProAir HFA) 90 mcg/inh inhalation aerosol See Instructions, INHALE 2 PUFFS BY MOUTH 4 TIMES DAILY NEEDED FOR WHEEZING, # 9 Gm, 6 Refills, 08/17/21 9:51:00 EDT[facility], 25, INHALE 2 PUFFS BY MOUTH 4 TIMES DAILY NEEDED FORWHEEZING, 162, cm, 08/03/21 16:59:00 EDT, Height, 1... Start Date: 08/17/21 Status: Ordered albuterol 0.083% inhalation solution 3 mL = 2.5 mg, Inhalation, Every 6 hours, PRN for wheezing, # 100 each, 5 Refills, Maintenance, 08/17/21 9:51:00 EDT, Solution[facility], replaces previous Rx for albuterol-ipatropium [...] once daily, # 90 capsule, 1 Refills, [facility], 162, cm, 09/16/21 15:34:00 EDT, [...] tablet, 11 Refills, Maintenance, 08/18/21 16:40:00EDT, Tablet, [facility], Partial fill upon [...] 08/17/21 9:51:00 EDT, Route to Pharmacy Electronically, [id number], [facility], 162, cm, 08/03/21 [...] tablet, 11 Refills, Maintenance, 03/16/21 11:27:00 EST, [facility], 162, c... Start [...] each, 11 Refills, Maintenance, 06/18/20 9:35:00 EDT, [facility], 161, cm, 219:18:00 [...] oldest [Reference Range]: 1 Height 162 cm (11/14/21 3:58 PM) Weight 115.43 kg (11/14/21 3:58 PM) Body Mass Index [18.5-24.99] 43.98 *>HHI* (11/14/21 3:58 PM) Blood Pressure [90-138/55-84 mm Hg] 108/ 60mm Hg (11/14/21 3:58 PM) Blood pressure sites Arm, right (11/14/21 3:58 PM) Weight Obtained Via Standing scale (11/14/21 3:58 PM) Social History Social History Type Response Smoking Status Never smoker; Tobacc o user in household: No entered on: 07/02/15 Sex
--- OUTSIDE RECORDS SUMMARY | 2024-02-22 11:45 | XMS_ITS | Continuity of Care Document ---
Author Organization [facility] Address Unknown Care Team Providers Care Contract Specialist Name Role Phone Nanci Melendez MD Primary Care Physician [phone] Encounter [facility] Date(s): 06/09/21 - 07/09/21 [facility] Allergies, Adverse Reactions, Alerts [...] [facility]# [id number] PT. TOLERATED INJ. WITHOUT COMPLICATIONS....CO 2Result Comment: [facility]# [id number] PT. TOLERATED INJ. WITHOUT COMPLICATIONS...CO 3Result Comment: [...] Gm, 10 Refills, Maintenance, 06/07/20 14:34:00 EST, [facility], 50, INHALE 2 PUFFS BY MOUTH 4 TIMES DAILY NEEDED FORWHEEZING, 161, cm, 02/10/20 14:26:00 EST, Height, 1... Start Date: 06/07/20 Status: Ordered Albuterol (Eqv-ProAir HFA) 90 mcg/inh inhalation aerosol See Instructions, INHALE 2 PUFFS BY MOUTH 4 TIMES DAILY NEEDED FOR WHEEZING, # 9 Gm, 6 Refills, [facility], 25, INHALE 2 PUFFS BY MOUTH 4 TIMES DAILY NEEDED FOR WHEEZING, 162, cm, 05/03/21 9:55:00 EST, Height, 105.2, kg, 02/12/21 17:0... Start Date: 06/24/21 Status: Ordered albuterol 0.083% inhalation solution 3 mL = 2.5 mg, Inhalation, Every 6 hours, PRN for wheezing, # 100 each, 5 Refills, Maintenance, 06/24/21 12:33:00 EDT, Solution, [facility], replaces previous Rx for albuterol-ipatropium solution, 162, cm, 05/03/21 9:55:00 EST, Height, 105.... Start Date: 06/24/21 Status: Ordered Apri 0.15 mg-0.03 mg oral tablet 1 tablet, By Mouth, Daily, start first tablet today, # 1 pack/packet, 3 Refills, Maintenance, 12/09/20 13:48:00 EDT, [facility], Partial fill upon [...] 0 Refills, Maintenance, 02/11/21 12:37:00 EST, ECCapsule, [facility], 163, cm, 01/01/21 10:10:00 EDT, Height Start Date: 02/11/21 Status: Ordered Endometrin 100 mg vaginal insert = 100 mg, Vaginally, 3 times a day, to add on day of transfer, # 90 supp, 5 Refills, Maintenance, 04/28/21 9:20:00 EST, [facility], Partial fill upon patient [...] each, Refills 5, Route to Pharmacy Electronically, [id number], [facility], 163, cm, 01/01/21 10:10:00 EDT, Height Start Date: 01/28/21 Status: Ordered metFORMIN 500 mg oral tablet, extended release See Instructions, take 1 tablet po w/dinner x1 wk, then increase to 2 tablets x 1-2 wks, then increase to 3 tablets 1-2 wks,then 4 tabs with dinner every day., # 120 tablet, 11 Refills, Maintenance, 03/16/21 11:27:00 EST, [facility], 162, c... Start [...] each, 11 Refills, Maintenance, 06/18/20 9:35:00 EDT, [facility], 161, cm, 219:18:00 EDT, Height, 106, kg, 09/11/18 13:37:00 EDT... Start Date: 06/18/20 Status: Ordered oxyCODONE 5 mg oral tablet 5 mg, 1, tablet, By Mouth, Every 6 hours, PRN, # 8 tablet, Refills 0, Tot. Refills 0, Maintenance, Pain , Mild, 01/18/21 9:22:00 EDT, Route to Pharmacy Electronically, [facility], Partial fill upon patient request if the prescription is for... Start Date: 01/18/21 Status: Ordered Multivitamins By Mouth, Daily, 0 Refills, Maintenance, 06/05/18 11:27:06 EST Start Date: 06/05/18 Status: Ordered progesterone 50 mg/mL intramuscular solution 100mg/ml 2 ml (sesame oil), Intramuscular, Daily, # 60 mL, 5 Refills, Maintenance, 06/27/21 16:29:00 EDT, [facility], Partial fill upon patient request if the prescription is for a schedule II opioid drug., 162, cm, 05/03/21 9:55:00 E... Start Date: 06/27/21 Status: Ordered Provera 10 mg oral tablet 10 mg, 1, tablet, By Mouth, Daily, # 10 tablet, Refills 0, Tot. Refills 0, Maintenance, 04/04/21 10:58:00 EST, [facility] to [facility]ically, [facility], Partial fill upon patient request [...] 01/18/21 9:22:00 EDT, Route to Pharmacy Electronically, [facility], Partial fill upon patient request if the... Start Date: 01/18/21 Status: Ordered Valium 5 mg oral tablet 5 mg, 1, tablet, By Mouth, Once, One tablet one hour prior to procedure, may repeat x 1 as needed for anxiety, # 2 tablet, Refills 0, Tot. Refills 0, Soft Stop, 06/04/21 13:10:00 EST, Route to Pharm[facility] Electronically, [facility], Partial fi... Start Date: 06/04/21 [...] patch, 5 Refills, Maintenance, 06/27/21 16:29:00 EDT, [facility], Partial fill upon patient [...]
--- OUTSIDE RECORDS SUMMARY | 2024-02-22 11:45 | XMS_ITS | Continuity of Care Document ---
Author Organization [facility] Address [address] [place] [address]- Care Team Providers Care Hand Mixer Name Role Phone Al DIEGO, Nanci Segovia Primary Care Physician Encounter [facility] Date(s): 03/14/22 - 04/13/22 [facility] [address] [place] [address]- Allergies, Adverse Reactions, Alerts Substance Reaction Severity [...] Recor ded 1Result Comment: [facility]# [id number] PT. TOLERATED INJ. WITHOUT COMPLICATIONS....CO 2Result Comment: [facility]# [id number] PT. TOLERATED INJ. WITHOUT COMPLICATIONS...CO 3Result Comment: [04/06/2016] pt. tolerated inj. without complications...CO 4Result Comment: [04/14/2015] Measles mumps rubella titer Medications acetaminophen 325 mg oral tablet 650 mg, By Mouth, Every 4 hours, PRN, not to exceed 4000 mg/day, # 60 tablet, Refills 0, Tot. Refills 0, Maintenance, Pain , Mild, 02/08/22 8:05:00 EST, [facility], Partial fill upon patient request if the... Start Date: 02/08/22 Status: Ordered Albuterol (Eqv-ProAir HFA) 90 mcg/inh inhalation aerosol See Instructions, INHALE 2 PUFFS BY MOUTH 4 TIMES DAILY NEEDED FOR WHEEZING, # 9 Gm, 6 Refills, 08/17/21 9:51:00 EDT, [facility], 25, INHALE 2 PUFFS BY MOUTH 4 TIMES DAILY NEEDED FORWHEEZING, 162, cm, 08/03/21 16:59:00 EDT, Height, 1... Start Date: 08/17/21 Status: Ordered albuterol 0.083% inhalation solution 3 mL = 2.5 mg, Inhalation, Every 6 hours, PRN for wheezing, # 100 each, 5 Refills, Maintenance, 08/17/21 9:51:00 EDT, Solution, [facility], replaces previous Rx for albuterol-ipatropium [...] mL, 0 Refills, Maintenance, 03/17/22 15:45:00 EST, [facility], Partial fill upon patient request if the prescription is for a schedule II opioid drug., 163, cm, 03/17/22... Start Date: 03/17/22 Stop Date: 03/31/22 Status: Ordered Dexilant 60 mg oral delayed release capsule See Instructions, Take 1 capsule by mouth once daily, # 90 capsule, 0 Refills, 03/14/22 14:26:00 EST, [facility], 163, cm, 02/27/22 9:06:00 EST, Height, 128.2, kg, 02/05/22 12:22:00 EST, Dry Weight Start Date: 03/14/22 Status: Ordered Diflucan 150 mg oral tablet 1 tablet = 150 mg, By Mouth, Once, # 1 tablet, 0 Refills, Soft Stop, 03/01/22 15:59:00 EST, Tablet,[facility], Partial fill upon patient [...] tablet, 11 Refills, Maintenance, 08/18/21 16:40:00EDT, Tablet, [facility] 1966, Partial fill upon patient [...] 08/17/21 9:51:00 EDT, Route to Pharmacy Electronically, [id number], [facility], 162, cm, 08/03/21 16:59:00 EDT, Height, 110, kg, 08/03/21 1... Start Date: 08/17/21 Status: Ordered ibuprofen 800 mg oral tablet 800 mg, 1, tablet, By Mouth, Every 8 hours, PRN, not to exceed 3200 mg/day with food or milk, # 40 tablet, Refills 0, Tot. Refills 0, Maintenance, Pain , Moderate, 02/08/22 8:05:00 EST, Route to Pharmacy Electronically, [facility], Partial... Start Date: 02/08/22 [...] Team Personnel Name: Nanci Melendez MD Position: [facility] Primary Care Physician Member Role: PCP Address: Address: [address] [place] [address]- Care Team Related Persons Name: SEAN RITCHIE Address: [address] Address: home [address] [place] [address] Name: DERRELL RITCHIE Address: [address] [address] Name: DERRELL RITCHIE Address: [address] [address] Name: DERRELL RITCHIE Address: [address] [address] Name: SHEBA CANO Address: home [address] [place] [id number] Name: DAYANNA CANO Address: [address] [address]
--- OUTSIDE RECORDS SUMMARY | 2024-02-22 11:45 | XMS_ITS | Continuity of Care Document ---
Author Organization [facility] Address [address] [place] [address]- Care Team Providers Care Retort Operator Name Role Phone Al DIEGO, Nanci Segovia Primary Care Physician Encounter [facility] Date(s): 05/21/23 - 06/20/23 [facility] [address] [place] [address]- Attending Physician: Marely Fu Admitting Physician: Marely [...] 1Result Comment: [facility]# [id number] PT. TOLERATED INJ. WITHOUT COMPLICATIONS....CO 2Result Comment: [facility]# [id number] PT. TOLERATED INJ. WITHOUT COMPLICATIONS...CO 3Result Comment: [04/06/2016] pt. tolerated inj. without complications...CO 4Result Comment: [04/14/2015] Measles mumps rubella titer Medications albuterol 0.083% inhalation solution 3 mL = 2.5 mg, Inhalation, Every 6 hours, PRN for wheezing, # 100 each, 5 Refills, Maintenance, 06/19/22 15:15:00 EDT, Solution, [facility]/pharmacy #[id number], replaces previous Rx for albuterol-ipatropium solution, 163, cm, 05/01/22 14:15:00 EST, Height, 128.2,... Start Date: 06/19/22 Status: Ordered Dexilant 60 mg oral delayed release capsule See Instructions, Take 1 capsule by mouth once daily, # 90 capsule, 0 Refills, 03/14/22 14:26:00 EST, [facility], 163, cm, 02/27/22 [...] tablet, 11 Refills, Maintenance, 08/18/21 16:40:00EDT, Tablet, [facility], Partial fill upon [...] 03/12/23 11:30:00 EST, Route to Pharmacy Electronically, [id number], [facility]/pharmacy #1130, 163, cm, 03/02/23 13:11:00 EST, Height, 128.2, kg, 02/05/22 1... 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, 08/30/18 17:26:09 EDT, Compound Start Date: 08/30/18 Status: Ordered norethindrone 0.35 mg oral tablet 1 tablet, By Mouth, Daily, # 84 tablet, 5 Refills, Maintenance, 08/16/22 9:41:00 EDT, [id number], 163, cm, 05/01/22 14:15:00 EST, Height, 128.2, kg, 02/05/22 12:22:00 EST, Dry Weight Start Date: 08/16/22 Status: Ordered ondansetron 4 mg oral tablet See Instructions, TAKE 1 TABLET BY MOUTH EVERY 8 HOURS NEEDED FOR NAUSEA AND VOMITING FOR 5 DAYS, # 15 each, 11 Refills, Maintenance, 06/19/22 15:15:00 EDT, [facility]/pharmacy #1130, 163, cm, 05/01/22 14:15:00 EST, [...] in household: No entered on: 07/02/15 Sex Laboratory * Event Display: Non Lab Results Authored Date: CT Abdomen * Event Display: CT Scan Abdomen Authored Date: Radiology * Event Display: Ultrasound Pelvis, Non- Authored Date: * Event Display: [place] Nuclear Medicine, Non- Authored Date: Patient Care team information Care Team Personnel Name: Macario DIEGO, Adela Marroquin Position: [facility] VELVET WEAVER Member Role: Lifetime VELVET WEAVER Physician Address: Address: [address] [place] [address], [address] [place] [address]- Name: Nanci Melendez MD Position: [facility] Physician - Primary Care Member Role: PCP Address: Address: [address] [place] [address]- Care Team Related Persons Name: ERMA SEAN Address: [address] Address: home [address] [place] [address] Name: DERRELL RITCHIE Address: home [address] [address] [place] [address] Name: DERRELL RITCHIE Address: home [address] [facility] [facility] [place] [address] Name: DERRELL RITCHIE Address: [place] [address] [facility] [facility] [place] [address] Name: SHEBA CANO Address: [address] [address] Name: DAYANNA CANO Address: home [address] [place] [address]
--- OUTSIDE RECORDS SUMMARY | 2024-02-22 11:45 | XMS_ITS | Continuity of Care Document ---
Author Organization [facility] Address [address], [address] [place] [address]- Care Team Providers Care Thai Masseur Name Role Phone Al DIEGO, Nanci Segovia Primary Care Physician Encounter [facility] Date(s): 01/26/22 - 02/02/22 [facility] [address], [address] [place], [place] [address] Attending Physician: Stanton DIEGO, Emerson Andrews Referring [...] ded 1Result Comment: [facility]# [id number] PT. TOLERATED INJ. WITHOUT COMPLICATIONS....CO 2Result Comment: [facility]# [id number] PT. TOLERATED INJ. WITHOUT COMPLICATIONS...CO 3Result Comment: [04/06/2016] pt. tolerated inj. without complications...CO 4Result Comment: [04/14/2015] Measles mumps rubella titer Medications Albuterol (Eqv-ProAir HFA) 90 mcg/inh inhalation aerosol See Instructions, INHALE 2 PUFFS BY MOUTH 4 TIMES DAILY NEEDED FOR WHEEZING, # 9 Gm, 6 Refills, 08/17/21 9:51:00 EDT, [facility], 25, INHALE 2 PUFFS BY MOUTH 4 TIMES DAILY NEEDED FORWHEEZING, 162, cm, 08/03/21 16:59:00 EDT, Height, 1... Start Date: 08/17/21 Status: Ordered albuterol 0.083% inhalation solution 3 mL = 2.5 mg, Inhalation, Every 6 hours, PRN for wheezing, # 100 each, 5 Refills, Maintenance, 08/17/21 9:51:00 EDT, Solution, [facility] 1966, replaces previous Rx [...] daily, # 90 capsule, 1 Refills, [facility], 162, cm, 09/16/21 15:34:00 [...] 11 Refills, Maintenance, 08/18/21 16:40:00EDT, Tablet, [facility] 1967, Partial fill upon [...] 08/17/21 9:51:00 EDT, Route to Pharmacy Electronically, [id number], [facility], 162, cm, 08/03/21 [...] 11 Refills, Maintenance, 03/16/21 11:27:00 EST, [facility], 162, cm, 03/10/21 14:17:00 [...] Personnel Name: Nanci Melendez MD Address: Address: [address] [place] [address]
--- OUTSIDE RECORDS SUMMARY | 2024-02-22 11:45 | XMS_ITS | Continuity of Care Document ---
Author Organization [facility] Address [address] [place] [address]- Care Team Providers Care Small Arms Repairer Name Role Phone Nanci Melendez MD Primary Care Physician Encounter [facility] Date(s): 03/24/21 - 07/22/21 [facility] [address] [place], [place] [address] Attending Physician: Nanci Melendez MD Allergies, Adverse [...] ded 1Result Comment: [facility]# [id number] PT. TOLERATED INJ. WITHOUT COMPLICATIONS....CO 2Result Comment: [facility]# [id number] PT. TOLERATED INJ. WITHOUT COMPLICATIONS...CO 3Result Comment: [...] Gm, 10 Refills, Maintenance, 06/07/20 14:34:00 EST, [facility], 50, INHALE 2 PUFFS BY MOUTH 4 TIMES DAILY NEEDED FORWHEEZING, 161, cm, 02/10/20 14:26:00 EST, Height, 1... Start Date: 06/07/20 Status: Ordered Albuterol (Eqv-ProAir HFA) 90 mcg/inh inhalation aerosol See Instructions, INHALE 2 PUFFS BY MOUTH 4 TIMES DAILY NEEDED FOR WHEEZING, # 9 Gm, 6 Refills, [facility] 1967, 25, INHALE 2 PUFFS BY MOUTH 4 TIMES DAILY NEEDED FOR WHEEZING, 162, cm, 05/03/21 9:55:00 EST, Height, 105.2, kg, 02/12/21 17:0... Start Date: 06/24/21 Status: Ordered albuterol 0.083% inhalation solution 3 mL = 2.5 mg, Inhalation, Every 6 hours, PRN for wheezing, # 100 each, 5 Refills, Maintenance, 06/24/21 12:33:00 EDT, Solution, [facility], [...] supp, 5 Refills, Maintenance, 04/28/21 9:20:00 EST, [facility], Partial fill upon patient [...] each, Refills 5, Route to Pharmacy Electronically, [id number], [facility], 163, cm, 01/01/21 10:10:00 EDT, Height Start Date: 01/28/21 Status: Ordered metFORMIN 500 mg oral tablet, extended release See Instructions, take 1 tablet po w/dinner x1 wk, then increase to 2 tablets x 1-2 wks, then increase to 3 tablets 1-2 wks,then 4 tabs with dinner every day., # 120 tablet, 11 Refills, Maintenance, 03/16/21 11:27:00 EST, [facility], 162, c... Start Date: 03/16/21 Status: Ordered [...] 9:35:00 EDT, [facility], 161, cm, 219:18:00 EDT, Height, [...] mL, 5 Refills, Maintenance, 06/27/21 16:29:00 EDT, [facility], Partial fill upon patient request if the prescription is for a schedule II opioid drug., 162, cm, 05/03/21 9:55:00 E... Start Date: 06/27/21 Status: Ordered Provera 10 mg oral tablet 10 mg, 1, tablet, By Mouth, Daily, # 10 tablet, Refills 0, Tot. Refills 0, Maintenance, 04/04/21 10:58:00 EST, [facility], Partial fill upon patient request [...] 01/18/21 9:22:00 EDT, [facility], Partial fill upon patient request if the... Start Date: 01/18/21 Status: Ordered Valium 5 mg oral tablet 5 mg, 1, tablet, By Mouth, Once, One tablet one hour prior to procedure, may repeat x 1 as needed for anxiety, # 2 tablet, Refills 0, Tot. Refills 0, Soft Stop, 06/04/21 13:10:00 EST, [facility], Partial fi... Start Date: 06/04/21 [...] patch, 5 Refills, Maintenance, 06/27/21 16:29:00 EDT, [facility], Partial fill upon patient [...]
--- OUTSIDE RECORDS SUMMARY | 2024-02-22 11:45 | XMS_ITS | Continuity of Care Document ---
Author Organization [facility] Address [address] [place] [address]- Care Team Providers Care Aviation Project Engineer Name Role Phone Al DIEGO, Nanci Segovia Primary Care Physician [phone] Encounter [facility] Date(s): 09/25/22 - 10/25/22 [facility] [address] [place] [address]- Allergies, Adverse Reactions, Alerts Substance Reaction Severity [...] Recor ded 1Result Comment: [facility]# [id number] PT. TOLERATED INJ. WITHOUT COMPLICATIONS....CO 2Result Comment: [facility]# [id number] PT. TOLERATED INJ. WITHOUT COMPLICATIONS...CO 3Result Comment: [04/06/2016] pt. tolerated inj. without complications...CO 4Result Comment: [04/14/2015] Measles mumps rubella titer Medications acetaminophen 325 mg oral tablet 650 mg, By Mouth, Every 4 hours, PRN, not to exceed 4000 mg/day, # 60 tablet, Refills 0, Tot. Refills 0, Maintenance, Pain , Mild, 02/08/22 8:05:00 EST, Route to Pharmacy Electronically, [facility] 1966, Partial fill upon patient request if the... Start Date: 02/08/22 Status: Ordered Albuterol (Eqv-ProAir HFA) 90 mcg/inh inhalation aerosol See Instructions, INHALE 2 PUFFS BY MOUTH 4 TIMES DAILY NEEDED FOR WHEEZING, # 9 Gm, 6 Refills, 08/17/21 9:51:00 EDT, [facility] 1967, 25, INHALE 2 PUFFS BY MOUTH 4 TIMES DAILY NEEDED FORWHEEZING, 162, cm, 08/03/21 16:59:00 EDT, Height, 1... Start Date: 08/17/21 Status: Ordered albuterol 0.083% inhalation solution 3 mL = 2.5 mg, Inhalation, Every 6 hours, PRN for wheezing, # 100 each, 5 Refills, Maintenance, 06/19/22 15:15:00 EDT, Solution, [facility]/pharmacy #1130, replaces previous Rx for albuterol-ipatropium [...] mL, 0 Refills, Maintenance, 03/17/22 15:45:00 EST, [facility], Partial fill upon patient request if the prescription is for a schedule II opioid drug., 163, cm, 03/17/22... Start Date: 03/17/22 Stop Date: 03/31/22 Status: Ordered Dexilant 60 mg oral delayed release capsule See Instructions, Take 1 capsule by mouth once daily, # 90 capsule, 0 Refills, 03/14/22 14:26:00 EST, [facility], 163, cm, 02/27/22 9:06:00 EST, Height, 128.2, kg, 02/05/22 12:22:00 EST, Dry Weight Start Date: 03/14/22 Status: Ordered Diflucan 150 mg oral tablet 1 tablet = 150 mg, By Mouth, Once, # 1 tablet, 0 Refills, Soft Stop, 03/01/22 15:59:00 EST, Tablet,[facility], Partial fill upon patient [...] tablet, 11 Refills, Maintenance, 08/18/21 16:40:00EDT, Tablet, [facility], Partial fill upon patient [...] 05/04/22 9:46:00 EST, Route to Pharmacy Electronically, [id number], [facility], 163, cm, 05/01/22 14:15:00 EST, Height, 128.2, kg, 02/05/22... Start Date: 05/04/22 Status: Ordered ibuprofen 800 mg oral tablet 800 mg, 1, tablet, By Mouth, Every 8 hours, PRN, not to exceed 3200 mg/day with food or milk, # 40 tablet, Refills 0, Tot. Refills 0, Maintenance, Pain , Moderate, 02/08/22 8:05:00 EST, Route to Pharmacy Electronically, [facility], Partial... Start Date: 02/08/22 [...] tablet, 5 Refills, Maintenance, 08/16/22 9:41:00 EDT, [facility], 163, cm, 05/01/22 14:15:00 EST, Height, 128.2, kg, 02/05/22 12:22:00 EST, Dry Weight Start Date: 08/16/22 Status: Ordered ondansetron 4 mg oral tablet See Instructions, TAKE 1 TABLET BY MOUTH EVERY 8 HOURS NEEDED FOR NAUSEA AND VOMITING FOR 5 DAYS, # 15 each, 11 Refills, Maintenance, 06/19/22 15:15:00 EDT, [facility]/pharmacy #1130, 163, cm, 05/01/22 14:15:00 EST, [...] Personnel Name: Adela Sorto MD Position: [facility] SUPERINTENDENT DRIVERS Member Role: Lifetime SUPERINTENDENT DRIVERS Physician Address: Address: [address] [place] [address], [address] [facility] [address] Name: Nanci Melendez MD Position: [facility] Physician - Primary Care Member Role: PCP Address: Address: [address] [place] [address]- [place] Care Team Related Persons Name: SEAN RITCHIE Address: [address] Address: home [address] [place] [address] Name: DERRELL RITCHIE Address: home [address] [facility] [address] [place] [address] Name: DERRELL RITCHIE Address: home [address] [address] [place] [address] Name: DERRELL RITCHIE Address: home [address] [address] Name: SHEBA CANO Address: home [address] [place] [address] Name: DAYANNA CANO Address: home [address] [place] [address]
--- OUTSIDE RECORDS SUMMARY | 2024-02-22 11:45 | XMS_ITS | Continuity of Care Document ---
Author Organization [facility] Address [address], [address] [place] [address]- Care Team Providers Care State Trooper Name Role Phone Nanci Melendez MD Primary Care Physician Encounter [facility] Date(s): 01/24/22 - 02/23/22 [facility] [address] [place], [place] [address] Allergies, Adverse Reactions, Alerts Substance [...] [facility]# [id number] PT. TOLERATED INJ. WITHOUT COMPLICATIONS....CO 2Result Comment: [facility]# [id number] PT. TOLERATED INJ. WITHOUT COMPLICATIONS...CO 3Result Comment: [04/06/2016] pt. tolerated inj. without complications...CO 4Result Comment: [04/14/2015] Measles mumps rubella titer Medications acetaminophen 325 mg oral tablet 650 mg, By Mouth, Every 4 hours, PRN, not to exceed 4000 mg/day, # 60 tablet, Refills 0, Tot. Refills 0, Maintenance, Pain , Mild, 02/08/22 8:05:00 EST, Route to Pharmacy Electronically, [facility] 1966, Partial fill upon patient request if the... Start Date: 02/08/22 Status: Ordered Albuterol (Eqv-ProAir HFA) 90 mcg/inh inhalation aerosol See Instructions, INHALE 2 PUFFS BY MOUTH 4 TIMES DAILY NEEDED FOR WHEEZING, # 9 Gm, 6 Refills, 08/17/21 9:51:00 EDT, [facility], 25, INHALE 2 PUFFS BY MOUTH 4 TIMES DAILY NEEDED FORWHEEZING, 162, cm, 08/03/21 16:59:00 EDT, Height, 1... Start Date: 08/17/21 Status: Ordered albuterol 0.083% inhalation solution 3 mL = 2.5 mg, Inhalation, Every 6 hours, PRN for wheezing, # 100 each, 5 Refills, Maintenance, 08/17/21 9:51:00 EDT, Solution, [facility], replaces previous Rx for albuterol-ipatropium [...] once daily, # 90 capsule, 1 Refills, [facility], 162, cm, 09/16/21 15:34:00 EDT, [...] 11 Refills, Maintenance, 08/18/21 16:40:00EDT, Tablet, [facility] 1967, Partial fill upon [...] 08/17/21 9:51:00 EDT, Route to Pharmacy Electronically, [id number], [facility], 162, cm, 08/03/21 16:59:00 EDT, Height, 110, kg, 08/03/21 1... Start Date: 08/17/21 Status: Ordered ibuprofen 800 mg oral tablet 800 mg, 1, tablet, By Mouth, Every 8 hours, PRN, not to exceed 3200 mg/day with food or milk, # 40 tablet, Refills 0, Tot. Refills 0, Maintenance, Pain , Moderate, 02/08/22 8:05:00 EST, Route to Pharmacy Electronically, [facility], Partial... Start Date: [...] Team Personnel Name: Nanci Melendez MD Position: [facility] Primary Care Physician Member Role: PCP Address: Address: [address] [place] [address]- Care Team Related Persons Name: SEAN RITCHIE Address: [address] Address: home [address] [place] [address] Name: DERRELL RITCHIE Address: home [address] [facility] [facility] [address] [place] [address] Name: DERRELL RITCHIE Address: home [address] [place] [address] [address] [place] [address] Name: DERRELL RITCHIE Address: home [address] [facility] [address] [place] [address] Name: SHEBA CANO Address: home [address] [place] [address] Name: DAYANNA CANO Address: home [address] [place] [address]
--- OUTSIDE RECORDS SUMMARY | 2024-02-22 11:45 | XMS_ITS | Continuity of Care Document ---
Author Organization [facility] Address [address] [place] [address]- Care Team Providers Care Marketing Intelligence Analyst Name Role Phone Al DIEGO, Nanci Segovia Primary Care Physician Encounter [facility] Date(s): 06/20/20 - 07/20/20 [facility] [address] [place], [place] [address] Attending Physician: Marely Fu Admitting Physician: Marely [...] Vaccine 08/08/99 Recor ded Measles/Mumps/Rubella Virus Vaccine 8/22/90 Recor ded 1Result Comment: [facility]# [id number] PT. TOLERATED INJ. WITHOUT COMPLICATIONS....CO 2Result Comment: [facility]# [id number] PT. TOLERATED INJ. WITHOUT COMPLICATIONS...CO 3Result Comment: [04/06/2016] pt. tolerated inj. without complications...CO 4Result Comment: [04/14/2015] Measles mumps rubella titer Medications Advair Diskus 500 mcg-50 mcg inhalation powder 1, puffs, Inhalation, 2 times a day, # 1 each, Refills 12, Tot. Refills 12, Maintenance, 12/24/19 13:40:00 EDT, Route to Pharmacy Electronically, [id number], [facility], 161, cm, 06/12/19 8:56:00 EDT, Height, 106,... Start Date: 12/24/19 Status: Ordered Albuterol (Eqv-ProAir HFA) 90 mcg/inh inhalation aerosol 2 puffs, Inhalation, 4 times a day, PRN NEEDED FOR WHEEZING, # 18 Gm, 10 Refills, Maintenance, 06/07/20 14:34:00 EST, [facility] 1967, 50, INHALE 2 PUFFS BY MOUTH 4 TIMES DAILY NEEDED FORWHEEZING, 161, cm, 02/10/20 14:26:00 EST, Height, 1... Start Date: 06/07/20 Status: Ordered albuterol-ipratropium 3 mg-0.5 mg/3 ml inhalation solution 3 mL, Neb, 4 times a day, PRN shortness of breath, # 180 mL, 11 Refills, Maintenance, 06/18/20 9:36:00 EDT, Solution, [facility] 1967, 3 mL Neb 4 [...] Maintenance, 12/24/19 13:41:00 EDT, ECCapsule, [facility], 161, cm, 06/12/19 8:56:00 [...] tablet, 3 Refills, Maintenance, 06/08/20 8:28:00 EST, [facility], 161, cm, 02/10/20 14:26:00 [...] Refills, Maintenance, 02/10/20 14:25:00 EST, [facility], 161, c... Start Date: [...] Refills, Maintenance, 06/18/20 9:35:00 EDT, [facility], 161, cm, :18:00 EDT, [...] 07/09/20 16:28:00 EDT, Route to Pharmacy Electronically, [facility] 1967, Partial fill upon patient [...]
--- OUTSIDE RECORDS SUMMARY | 2024-02-22 11:45 | XMS_ITS | Continuity of Care Document ---
Author Organization [facility] Address [address] [place] [address]- Care Team Providers Care Head Of Transport Logistics Name Role Phone Al DIEGO, Nanci Segovia Primary Care Physician Encounter [facility] Date(s): 05/07/20 - 06/06/20 [facility] [address] [place] [address] Allergies, Adverse Reactions, Alerts Substance Reaction Severity Status Reglan EYE TWITCHING Active Immunizations Given and Recorded Vaccine Date Status Refusal Reason Influenza Virus Vaccine (oldterm) 01/01/20 Recorde d tetanus/diphtheria/pertussis, acel(Tdap) 1 06/05/18 Given tetanus/diphtheria/pertussis, acel(Tdap) 07/10/07 Recorded pneumococcal 23-valent vaccine 2 06/05/18 Given influenza virus vaccine, inactivated 3 04/06/16 Gi tad influenza virus vaccine, inactivated 12/09/14 Igo rded influenza virus vaccine, inactivated 02/12/13 Gio [...] ded 1Result Comment: [facility]# [id number] PT. TOLERATED INJ. WITHOUT COMPLICATIONS....CO 2Result Comment: [facility]# [id number] PT. TOLERATED INJ. WITHOUT COMPLICATIONS...CO 3Result Comment: [04/06/2016] pt. tolerated inj. without complications...CO 4Result Comment: [04/14/2015] Measles mumps rubella titer Medications Advair Diskus 500 mcg-50 mcg inhalation powder 1, puffs, Inhalation, 2 times a day, # 1 each, Refills 12, Tot. Refills 12, Maintenance, 12/24/19 13:40:00 EDT, Route to Pharmacy Electronically, [id number], [facility], 161, cm, 06/12/19 8:56:00 EDT, Height, 106,... Start Date: 12/24/19 Status: Ordered albuterol 0.083% inhalation solution 3 mL = 2.5 mg, Inhalation, Every 6 hours, PRN for wheezing, # 60 each, 11 Refills, Maintenance, 12/24/19 13:40:00 EDT, Solution, [facility] 1967, 161, cm, 06/12/19 8:56:00 EDT, [...] 3 Refills, Maintenance, 12/24/19 13:41:00 EDT, ECCapsule, [facility] 1967, 161, cm, 06/12/19 8:56:00 EDT, Height, 106, kg, 09/11/18 13:37:00 EDT, Dry Weight Start Date: 12/24/19 Status: Ordered diclofenac sodium 75 mg oral delayed release tablet 1 tablet = 75 mg, By Mouth, 2 times a day, PRN for pain, TAKE WITH FOOD, # 28 tablet, 1 Refills, Maintenance, 12/16/19 9:22:00 EDT, Tablet, [facility] 1967, 161, cm, 06/12/19 8:56:00 EDT, [...] tablet, 3 Refills, Maintenance, 02/09/20 17:27:00 EST, [facility], 161, cm, 06/12/19 8:56:00 EDT, [...] tablet, 11 Refills, Maintenance, 02/10/20 14:25:00 EST, [facility] 1967, 161, c... Start Date: 02/10/20 [...] each, 5 Refills, Maintenance, 12/24/19 13:58:00 EDT, [facility], 161, cm, 208:56:00 EDT, Height, [...] 13:40:00 EDT, Inhaler, Route to Pharmacy Electronically, [id number],[facility], 161, cm, 06/12/19 8:56:00 ED... Start Date: 12/24/19 Status: Ordered ProAir HFA 90 mcg/inh inhalation aerosol with adapter 2, puffs, Inhalation, 4 times a day, PRN, # 2 each, Refills 5, Tot. Refills 5, Maintenance, 05/19/19 15:55:00 EST, Aerosol, Route to Pharmacy Electronically, [id number], [facility], 161, cm, 01/20/19 11:38:00 EDT,... [...]
--- OUTSIDE RECORDS SUMMARY | 2024-02-22 11:45 | XMS_ITS | Continuity of Care Document ---
Author Organization [facility] Address [address] [place] [address]- Care Team Providers Care Records And Information Manager Name Role Phone Nanci Melendez MD Primary Care Physician [phone] Encounter [facility] Date(s): 04/27/20 - 05/27/20 [facility] [address] [place], [place] [address] Allergies, Adverse Reactions, Alerts Substance Reaction [...] Comment: [facility] [place] [id number] PT. TOLERATED INJ. WITHOUT COMPLICATIONS....CO 2Result Comment: [facility]# [id number] PT. TOLERATED INJ. WITHOUT COMPLICATIONS...CO 3Result Comment: [04/06/2016] pt. tolerated inj. without complications...CO 4Result Comment: [04/14/2015] Measles mumps rubella titer Medications Advair Diskus 500 mcg-50 mcg inhalation powder 1, puffs, Inhalation, 2 times a day, # 1 each, Refills 12, Tot. Refills 12, Maintenance, 12/24/19 13:40:00 EDT, Route to Pharmacy Electronically, [id number], [facility], 161, cm, 06/12/19 8:56:00 EDT, Height, 106,... Start Date: 12/24/19 Status: Ordered albuterol 0.083% inhalation solution 3 mL = 2.5 mg, Inhalation, Every 6 hours, PRN for wheezing, # 60 each, 11 Refills, Maintenance, 12/24/19 13:40:00 EDT, Solution, [facility], 161, cm, 06/12/19 [...] Refills, Maintenance, 12/24/19 13:41:00 EDT, ECCapsule, [facility], 161, cm, 06/12/19 8:56:00 EDT, Height, 106, kg, 09/11/18 13:37:00 EDT, Dry Weight Start Date: 12/24/19 Status: Ordered diclofenac sodium 75 mg oral delayed release tablet 1 tablet = 75 mg, By Mouth, 2 times a day, PRN for pain, TAKE WITH FOOD, # 28 tablet, 1 Refills, Maintenance, 12/16/19 9:22:00 EDT, Tablet, [facility], 161, cm, 06/12/19 [...] tablet, 3 Refills, Maintenance, 02/09/20 17:27:00 EST, [facility], 161, cm, 06/12/19 [...] tablet, 11 Refills, Maintenance, 02/10/20 14:25:00 EST, [facility], 161, c... Start [...] 5 Refills, Maintenance, 12/24/19 13:58:00 EDT, [facility], 161, cm, 208:56:00 [...] 13:40:00 EDT, Inhaler, Route to Pharmacy Electronically, [id number],[facility], 161, cm, 06/12/19 8:56:00 ED... Start Date: 12/24/19 Status: Ordered ProAir HFA 90 mcg/inh inhalation aerosol with adapter 2, puffs, Inhalation, 4 times a day, PRN, # 2 each, Refills 5, Tot. Refills 5, Maintenance, 05/19/19 15:55:00 EST, Aerosol, Route to Pharmacy Electronically, [id number], [facility], 161, cm, 01/20/19 [...]
--- OUTSIDE RECORDS SUMMARY | 2024-02-22 11:45 | XMS_ITS | Continuity of Care Document ---
Author Organization [facility] Address [address] [facility], 4t [address] [place] [address]- Care Team Providers Care Floor Care Specialist Name Role Phone Nanci Melendez MD Primary Care Physician [place] [facility] [place]s): 05/21/20 - 05/28/20 [facility] [address] [facility], 4th [address] [place] [address] Attending Physician: Cheryl Beauchamp MD Referring Physician: [...] Comment: [facility] [place] [id number] PT. TOLERATED INJ. WITHOUT COMPLICATIONS....CO 2Result Comment: [facility] [place]# [id number] PT. TOLERATED INJ. WITHOUT COMPLICATIONS...CO 3Result Comment: [04/06/2016] pt. tolerated inj. without complications...CO 4Result Comment: [04/14/2015] Measles mumps rubella titer Medications Advair Diskus 500 mcg-50 mcg inhalation powder 1, puffs, Inhalation, 2 times a day, # 1 each, Refills 12, Tot. Refills 12, Maintenance, 12/24/19 13:40:00 EDT, Route to Pharmacy Electronically, [id number], [facility], 161, cm, 06/12/19 8:56:00 EDT, Height, 106,... Start Date: 12/24/19 Status: Ordered albuterol 0.083% inhalation solution 3 mL = 2.5 mg, Inhalation, Every 6 hours, PRN for wheezing, # 60 each, 11 Refills, Maintenance, 12/24/19 13:40:00 EDT, Solution, [facility], 161, cm, 06/12/19 8:56:00 [...] 3 Refills, Maintenance, 12/24/19 13:41:00 EDT, ECCapsule, [facility], 161, cm, 06/12/19 8:56:00 EDT, Height, 106, kg, 09/11/18 13:37:00 EDT, Dry Weight Start Date: 12/24/19 Status: Ordered diclofenac sodium 75 mg oral delayed release tablet 1 tablet = 75 mg, By Mouth, 2 times a day, PRN for pain, TAKE WITH FOOD, # 28 tablet, 1 Refills, Maintenance, 12/16/19 9:22:00 EDT, Tablet, [facility], 161, cm, 06/12/19 8:56:00 [...] tablet, 3 Refills, Maintenance, 02/09/20 17:27:00 EST, [facility], 161, cm, 06/12/19 8:56:00 [...] tablet, 11 Refills, Maintenance, 02/10/20 14:25:00 EST, [facility], 161, c... Start Date: [...] each, 5 Refills, Maintenance, 12/24/19 13:58:00 EDT, [facility], 161, cm, 208:56:00 EDT, [...] 13:40:00 EDT, Inhaler, Route to Pharmacy Electronically, [id number],[facility], 161, cm, 06/12/19 8:56:00 ED... Start Date: 12/24/19 Status: Ordered ProAir HFA 90 mcg/inh inhalation aerosol with adapter 2, puffs, Inhalation, 4 times a day, PRN, # 2 each, Refills 5, Tot. Refills 5, Maintenance, 05/19/19 15:55:00 EST, Aerosol, Route to Pharmacy Electronically, [id number], [facility], 161, cm, 01/20/19 11:38:00 [...]
--- OUTSIDE RECORDS SUMMARY | 2024-02-22 11:46 | XMS_ITS | Continuity of Care Document ---
Author Organization [facility] Address [address], [address] [place] [address]- Care Team Providers Care Research Chief Engineer Name Role Phone Al DIEGO, Nanci Segovia Primary Care Physician [phone] Encounter [facility] Date(s): 12/08/21 - 01/07/22 [facility] [address] [facility], 4th [place] [address]- Allergies, Adverse Reactions, Alerts Substance Reaction Severity [...] Vaccine 11/21/89 Recor ded 1Result Comment: [facility] [place]# [id number] PT. TOLERATED INJ. WITHOUT COMPLICATIONS....CO 2Result Comment: [facility] [place]# [id number] PT. TOLERATED INJ. WITHOUT COMPLICATIONS...CO 3Result Comment: [04/06/2016] pt. tolerated inj. without complications...CO 4Result Comment: [04/14/2015] Measles mumps rubella titer Medications Albuterol (Eqv-ProAir HFA) 90 mcg/inh inhalation aerosol See Instructions, INHALE 2 PUFFS BY MOUTH 4 TIMES DAILY NEEDED FOR WHEEZING, # 9 Gm, 6 Refills, 08/17/21 9:51:00 EDT[facility], 25, INHALE 2 PUFFS BY MOUTH 4 TIMES DAILY NEEDED FORWHEEZING, 162, cm, 08/03/21 16:59:00 EDT, Height, 1... Start Date: 08/17/21 Status: Ordered albuterol 0.083% inhalation solution 3 mL = 2.5 mg, Inhalation, Every 6 hours, PRN for wheezing, # 100 each, 5 Refills, Maintenance, 08/17/21 9:51:00 EDT, Solution, [facility], replaces previous Rx for albuterol-ipatropium [...] once daily, # 90 capsule, 1 Refills, [facility], 162, cm, 09/16/21 15:34:00 EDT, [...] tablet, 11 Refills, Maintenance, 08/18/21 16:40:00EDT, Tablet, [facility], Partial fill upon patient [...] 08/17/21 9:51:00 EDT, Route to Pharmacy Electronically, [id number], [facility], 162, cm, 08/03/21 16:59:00 [...] tablet, 11 Refills, Maintenance, 03/16/21 11:27:00 EST, [facility], 162, cm, 03/10/21 14:17:00 [...] each, 11 Refills, Maintenance, 06/18/20 9:35:00 EDT, [facility], 161, cm, :18:00 EDT, Height, 106, kg, 09/11/18 13:37:00 EDT... Start Date: 06/18/20 Status: Ordered Multivitamins By Mouth, Daily, 0 Refills, Maintenance, 06/05/18 11:27:06 EST Start Date: 06/05/18 Status: Ordered simethicone 250 mg oral capsule 1 capsule = 250 mg, By Mouth, Daily, 0 Refills, Maintenance, 06/07/18 9:16:30 EST Start Date: 3/8/19 Status: Ordered Vitamin B12 0 Refills, Maintenance, [...] Personnel Name: Nanci Melendez MD Address: Address: [address] [place] [address]
--- OUTSIDE RECORDS SUMMARY | 2024-02-22 11:46 | XMS_ITS | Continuity of Care Document ---
Author Organization [facility] Address [address] [facility] [address] [facility], [place] [address]- Care Team Providers Care Baler Operator Name Role Phone Nanci Melendez MD Primary Care Physician [phone] [place] [facility] [place](s): 07/28/22 - 08/27/22 [facility]rique [facility] [address] [facility], [address] [place], [place] [address] Attending Physician: Admmiriam, Marely Admitting Physician: [...] 11/21/89 Recor ded 1Result Comment: [facility]# [id number] PT. TOLERATED INJ. WITHOUT COMPLICATIONS....CO 2Result Comment: [facility]# [id number] PT. TOLERATED INJ. WITHOUT COMPLICATIONS...CO 3Result Comment: [04/06/2016] pt. tolerated inj. without complications...CO 4Result Comment: [04/14/2015] Measles mumps rubella titer Medications acetaminophen 325 mg oral tablet 650 mg, By Mouth, Every 4 hours, PRN, not to exceed 4000 mg/day, # 60 tablet, Refills 0, Tot. Refills 0, Maintenance, Pain , Mild, 02/08/22 8:05:00 EST, Route to Pharmacy Electronically, [facility], Partial fill upon patient request if the... Start Date: 02/08/22 Status: Ordered Albuterol (Eqv-ProAir HFA) 90 mcg/inh inhalation aerosol See Instructions, INHALE 2 PUFFS BY MOUTH 4 TIMES DAILY NEEDED FOR WHEEZING, # 9 Gm, 6 Refills, 08/17/21 9:51:00 EDT, [facility], 25, INHALE 2 PUFFS BY [...] mL, 0 Refills, Maintenance, 03/17/22 15:45:00 EST, [facility], Partial fill upon patient request if the prescription is for a schedule II opioid drug., 163, cm, 03/17/22... Start Date: 03/17/22 Stop Date: 03/31/22 Status: Ordered Dexilant 60 mg oral delayed release capsule See Instructions, Take 1 capsule by mouth once daily, # 90 capsule, 0 Refills, 03/14/22 14:26:00 EST, [facility], 163, cm, 02/27/22 9:06:00 EST, Height, 128.2, kg, 02/05/22 12:22:00 EST, Dry Weight Start Date: 03/14/22 Status: Ordered Diflucan 150 mg oral tablet 1 tablet = 150 mg, By Mouth, Once, # 1 tablet, 0 Refills, Soft Stop, 03/01/22 15:59:00 EST, Tablet,[facility], Partial fill upon patient request [...] tablet, 11 Refills, Maintenance, 08/18/21 16:40:00EDT, Tablet, [facility], Partial fill upon patient request [...] 05/04/22 9:46:00 EST, Route to Pharmacy Electronically, [id number], [facility], 163, cm, 05/01/22 14:15:00 EST, Height, 128.2, kg, 02/05/22... Start Date: 05/04/22 Status: Ordered ibuprofen 800 mg oral tablet 800 mg, 1, tablet, By Mouth, Every 8 hours, PRN, not to exceed 3200 mg/day with food or milk, # 40 tablet, Refills 0, Tot. Refills 0, Maintenance, Pain , Moderate, 02/08/22 8:05:00 EST, Route to Pharmacy Electronically, [facility], Partial... Start Date: 02/08/22 Status: [...] 5 Refills, Maintenance, 08/16/22 9:41:00 EDT, [id number], 163, cm, 05/01/22 14:15:00 EST, Height, 128.2, kg, 02/05/22 12:22:00 EST, Dry Weight Start Date: 08/16/22 Status: Ordered ondansetron 4 mg oral tablet See Instructions, TAKE 1 TABLET BY MOUTH EVERY 8 HOURS NEEDED FOR NAUSEA AND VOMITING FOR 5 DAYS, # 15 each, 11 Refills, Maintenance, 06/19/22 15:15:00 EDT, [id number], 163, cm, 05/01/22 14:15:00 EST, Height, 128.2, kg, 02/05/22 12:22:00 ES... Start Date: 06/19/22 Status: Ordered Multivitamins By Mouth, Daily, 0 Refills, Maintenance, 06/05/18 11:27:06 EST Start Date: 06/05/18 Status: Ordered Ventolin HFA 108 mcg/inh inhalation aerosol with adapter 2 puffs, Inhalation, Every 4 hours, PRN for wheezing, # 8 Gm, 5 Refills, Maintenance, 06/19/22 15:16:00 EDT, Aerosol, [id number], Partial fill upon patient request if [...] on: 07/02/15 Sex Laboratory * Event Display: Laboratory Result Scanned Authored Date: [id number] Patient Care team information Care Team Personnel Name: Adela Sorto MD Position: [facility] SPECIAL EDUCATION ITINERANT TEACHER MD Member Role: [employer] EDUCATION ITINERANT TEACHER Physician Address: Address: [address], [facility] [address] [place] [address]- Name: Nanci Melendez MD Position: [facility] Physician - Primary Care Member Role: PCP Address: Address: [address] [address]- Care Team Related Persons Name: SEAN RITCHIE Address: [address] Address: [address] [place] [address] Name: DERRELL RITCHIE Address: home [address] [place] [address] Name: DERRELL RITCHIE Address: home [address] [place] [address] Name: DERRELL RITCHIE Address: home [address] [place] [address] Name: SHEBA CANO Address: [address] [place] [address] Name: DAYANNA CANO Address: [address] [place] [address]
--- OUTSIDE RECORDS SUMMARY | 2024-02-22 11:46 | XMS_ITS | Continuity of Care Document ---
Author Organization [facility] Address [address] [facility] [facility], 4t [address] [place] [address]- Care Team Providers Care Mixing Machine Feeder Name Role Phone Al DIEGO, Nanci Segovia Primary Care Physician [place] [facility] [place] 09[place]18[place]20 [facility] [address], 4th [address] [place] [address] Allergies, Adverse [...] Virus Vaccine 11/21/89 Recor ded 1Result Comment: [facility]# [id number] PT. TOLERATED INJ. WITHOUT COMPLICATIONS....CO 2Result Comment: [facility]# [id number] PT. TOLERATED INJ. WITHOUT COMPLICATIONS...CO 3Result Comment: [04/06/2016] pt. tolerated inj. without complications...CO 4Result Comment: [04/14/2015] Measles mumps rubella titer Medications Advair Diskus 500 mcg-50 mcg inhalation powder 1, puffs, Inhalation, 2 times a day, # 1 each, Refills 12, Tot. Refills 12, Maintenance, 12/24/19 13:40:00 EDT, Route to Pharmacy Electronically, [id number], [facility], 161, cm, 06/12/19 8:56:00 EDT, Height, 106,... Start Date: 12/24/19 Status: Ordered Albuterol (Eqv-ProAir HFA) 90 mcg/inh inhalation aerosol 2 puffs, Inhalation, 4 times a day, PRN NEEDED FOR WHEEZING, # 18 Gm, 10 Refills, Maintenance, 06/07/20 14:34:00 EST, [facility], 50, INHALE 2 PUFFS BY MOUTH 4 TIMES DAILY NEEDED FORWHEEZING, 161, cm, 02/10/20 14:26:00 EST, Height, 1... Start Date: 06/07/20 Status: Ordered albuterol-ipratropium 3 mg-0.5 mg/3 ml inhalation solution 3 mL, Neb, 4 times a day, PRN shortness of breath, # 180 mL, 11 Refills, Maintenance, 06/18/20 9:36:00 EDT, Solution, [facility], 3 mL Neb 4 times a day,PRN:shortness of breath, 161, cm, 06/18/20 9:18:00 EDT, Height, 106, kg, 09/11/18 13:37... Start Date: 06/18/20 Status: Ordered Apri 0.15 mg-0.03 mg oral tablet 1 tablet, By Mouth, Daily, start first tablet today, # 1 pack/packet, 3 Refills, Maintenance, 09/10/20 10:08:00 EDT, [facility], Partial fill upon patient [...] 3 Refills, Maintenance, 12/24/19 13:41:00 EDT, ECCapsule, [facility], 161, cm, 06/12/19 8:56:00 [...] tablet, 11 Refills, Maintenance, 02/10/20 14:25:00 EST, [facility], 161, c... Start Date: [...] each, 11 Refills, Maintenance, 06/18/20 9:35:00 EDT, [facility], 161, cm, 219:18:00 EDT, [...] 07/09/20 16:28:00 EDT, Route to Pharmacy Electronically, [facility], Partial fill upon patient [...]
--- OUTSIDE RECORDS SUMMARY | 2024-02-22 11:46 | XMS_ITS | Continuity of Care Document ---
Author Organization [facility] [employer] Address [address] [facility], [address] [place] [address]- Care Team Providers Care Piece Work Inspector Name Role Phone Al DIEGO, Nanci Segovia Primary Care Physician [place] [facility] [place] 02/02/22 [facility] Susan [facility] [employer] [address] [facility], [address] [place], [place] [address] Attending Physician: Adela Sorto MD [...] Comment: [facility]# [id number] PT. TOLERATED INJ. WITHOUT COMPLICATIONS....CO 2Result Comment: [facility]# [id number] PT. TOLERATED INJ. WITHOUT COMPLICATIONS...CO 3Result Comment: [04/06/2016] pt. tolerated inj. without complications...CO 4Result Comment: [04/14/2015] Measles mumps rubella titer Medications Albuterol (Eqv-ProAir HFA) 90 mcg/inh inhalation aerosol See Instructions, INHALE 2 PUFFS BY MOUTH 4 TIMES DAILY NEEDED FOR WHEEZING, # 9 Gm, 6 Refills, 08/17/21 9:51:00 EDT, [facility], 25, INHALE 2 PUFFS BY MOUTH 4 TIMES DAILY NEEDED FORWHEEZING, 162, cm, 08/03/21 16:59:00 EDT, Height, 1... Start Date: 08/17/21 Status: Ordered albuterol 0.083% inhalation solution 3 mL = 2.5 mg, Inhalation, Every 6 hours, PRN for wheezing, # 100 each, 5 Refills, Maintenance, 08/17/21 9:51:00 EDT, Solution, [facility], replaces previous Rx for albuterol-ipatropium [...] once daily, # 90 capsule, 1 [facility]ills[facility], 162, cm, 09/16/21 15:34:00 EDT, [...] Refills, Maintenance, 08/18/21 16:40:00EDT, Tablet, [facility] 1967, Partial fill [...] 08/17/21 9:51:00 EDT, Route to Pharmacy Electronically, [id number], [facility], 162, cm, 08/03/21 16:59:00 EDT, [...] tablet, 11 Refills, Maintenance, 03/16/21 11:27:00 EST, [facility] 1967, 162, cm, 03/10/21 14:17:00 EST, Height, [...] Personnel Name: Nanci Melendez MD Address: Address: [address] [place] [address]
--- OUTSIDE RECORDS SUMMARY | 2024-02-22 11:46 | XMS_ITS | Continuity of Care Document ---
Author Organization [facility] Address [address] [facility], 4t [address] [place] [address]- Care Team Providers Care Biodiesel Product Manager Name Role Phone Al DIEGO, Nanci Segovia Primary Care Physician [place] [facility] [place] 09/01/20 [facility] [address] [place] [address], 4th [address] [place] [id number] Allergies, Adverse Reactions, Alerts Substance [...] ded 1Result Comment: [facility]# [id number] PT. TOLERATED INJ. WITHOUT COMPLICATIONS....CO 2Result Comment: [facility]# [id number] PT. TOLERATED INJ. WITHOUT COMPLICATIONS...CO 3Result Comment: [04/06/2016] pt. tolerated inj. without complications...CO 4Result Comment: [04/14/2015] Measles mumps rubella titer Medications Advair Diskus 500 mcg-50 mcg inhalation powder 1, puffs, Inhalation, 2 times a day, # 1 each, Refills 12, Tot. Refills 12, Maintenance, 12/24/19 13:40:00 EDT, Route to Pharmacy Electronically, [id number], [facility], 161, cm, 06/12/19 8:56:00 EDT, Height, 106,... Start Date: 12/24/19 Status: Ordered Albuterol (Eqv-ProAir HFA) 90 mcg/inh inhalation aerosol 2 puffs, Inhalation, 4 times a day, PRN NEEDED FOR WHEEZING, # 18 Gm, 10 Refills, Maintenance, 06/07/20 14:34:00 EST, [facility], 50, INHALE 2 PUFFS BY MOUTH 4 TIMES DAILY NEEDED FORWHEEZING, 161, cm, 02/10/20 14:26:00 EST, Height, 1... Start Date: 06/07/20 Status: Ordered albuterol-ipratropium 3 mg-0.5 mg/3 ml inhalation solution 3 mL, Neb, 4 times a day, PRN shortness of breath, # 180 mL, 11 Refills, Maintenance, 06/18/20 9:36:00 EDT, Solution, [facility], 3 mL Neb 4 [...] capsule, 3 Refills, Maintenance, 12/24/19 13:41:00 EDT, [facility], 161, cm, 06/12/19 8:56:00 [...] tablet, 11 Refills, Maintenance, 02/10/20 14:25:00 EST, [facility], 161, c... Start Date: [...] each, 11 Refills, Maintenance, 06/18/20 9:35:00 EDT, [facility], 161, cm, :18:00 EDT, [...] 07/09/20 16:28:00 EDT, Route to Pharmacy Electronically, [facility], Partial fill upon patient [...]
--- OUTSIDE RECORDS SUMMARY | 2024-02-22 11:46 | XMS_ITS | Continuity of Care Document ---
Author Organization [facility] Address [address], [address] [place] [address]- Care Team Providers Care Superintendent Construction Name Role Phone Nanci Melendez MD Primary Care Physician [place] [facility] [place](s): 08/03/21 - 08/10/21 [facility] Susan Sosa[employer]ibest[employer] [facility] [address], 4th [address] [place], [place] [address] Attending Physician: Adela Sorto MD Referring [...] ded 1Result Comment: [facility]# [id number] PT. TOLERATED INJ. WITHOUT COMPLICATIONS....CO 2Result Comment: [facility]# [id number] PT. TOLERATED INJ. WITHOUT COMPLICATIONS...CO 3Result Comment: [...] Gm, 10 Refills, Maintenance, 06/07/20 14:34:00 EST, [facility], 50, INHALE 2 PUFFS BY MOUTH 4 TIMES DAILY NEEDED FORWHEEZING, 161, cm, 02/10/20 14:26:00 EST, Height, 1... Start Date: 06/07/20 Status: Ordered Albuterol (Eqv-ProAir HFA) 90 mcg/inh inhalation aerosol See Instructions, INHALE 2 PUFFS BY MOUTH 4 TIMES DAILY NEEDED FOR WHEEZING, # 9 Gm, 6 Refills, [facility], 25, INHALE 2 PUFFS BY MOUTH 4 TIMES DAILY NEEDED FOR WHEEZING, 162, cm, 05/03/21 9:55:00 EST, Height, 105.2, kg, 02/12/21 17:0... Start Date: 06/24/21 Status: Ordered albuterol 0.083% inhalation solution 3 mL = 2.5 mg, Inhalation, Every 6 hours, PRN for wheezing, # 100 each, 5 Refills, Maintenance, 06/24/21 12:33:00 EDT, Solution, [facility], replaces previous Rx [...] 0 Refills, Maintenance, 02/11/21 12:37:00 EST, ECCapsule, [facility], 163, cm, 01/01/21 10:10:00 EDT, Height Start Date: 02/11/21 Status: Ordered Endometrin 100 mg vaginal insert = 100 mg, Vaginally, 3 times a day, to add on day of transfer, # 90 supp, 5 Refills, Maintenance, 04/28/21 9:20:00 EST, [facility], Partial fill upon patient [...] each, Refills 5, Route to Pharmacy Electronically, [id number], [facility], 163, cm, 01/01/21 10:10:00 EDT, Height Start Date: 01/28/21 Status: Ordered metFORMIN 500 mg oral tablet, extended release See Instructions, take 1 tablet po w/dinner x1 wk, then increase to 2 tablets x 1-2 wks, then increase to 3 tablets 1-2 wks,then 4 tabs with dinner every day., # 120 tablet, 11 Refills, Maintenance, 03/16/21 11:27:00 EST, [facility], 162, c... Start [...] each, 11 Refills, Maintenance, 06/18/20 9:35:00 EDT, [facility], 161, cm, 219:18:00 EDT, Height, 106, kg, 09/11/18 13:37:00 EDT... Start Date: 06/18/20 Status: Ordered Multivitamins By Mouth, Daily, 0 Refills, Maintenance, 06/05/18 11:27:06 EST Start Date: 06/05/18 Status: Ordered progesterone 50 mg/mL intramuscular solution 100mg/ml 2 ml (sesame oil), Intramuscular, Daily, # 60 mL, 5 Refills, Maintenance, 06/27/21 16:29:00 EDT, [facility], Partial fill upon patient request if the prescription is for a schedule II opioid drug., 162, cm, 05/03/21 9:55:00 E... Start Date: 06/27/21 Status: Ordered Provera 10 mg oral tablet 10 mg, 1, tablet, By Mouth, Daily, # 10 tablet, Refills 0, Tot. Refills 0, Maintenance, 04/04/21 10:58:00 EST, Route to Pharmacy Electronically, [facility], Partial fill upon [...] oldest [Reference Range]: 1 Height 162 cm (08/03/21 4:59 PM) Weight 110 kg (08/03/21 4:59 PM) Body Mass Index [18.5-24.99] 41.91 *>HHI* (08/03/21 4:59 PM) Blood Pressure [90-138/55-84 mm Hg] 110/ 78mm Hg (08/03/21 4:59 PM) Blood pressure sites Arm, right (08/03/21 4:59 PM) Dry Weight 110 kg (08/03/21 4:59 PM) Weight Obtained Via Standing scale (08/03/21 4:59 PM) Dry Weight Obtained Via Standing scale (08/03/21 4:59 PM) Social History Social History Type Response Smoking Status Never smoker; Tobacc o user in household: No entered on: 07/02/15 Sex
--- OUTSIDE RECORDS SUMMARY | 2024-02-22 11:46 | XMS_ITS | Continuity of Care Document ---
Author Organization [facility] Address Unknown Care Team Providers Care Community Relations Liaison Name Role Phone Al DIEGO, Nanci Segovia Primary Care Physician Encounter [facility] Date(s): 01/25/21 - 02/24/[address] [facility] Allergies, [...] Comment: [facility]# [id number] PT. TOLERATED INJ. WITHOUT COMPLICATIONS....CO 2Result Comment: [facility]# [id number] PT. TOLERATED INJ. WITHOUT COMPLICATIONS...CO 3Result Comment: [...] Gm, 10 Refills, Maintenance, 06/07/20 14:34:00 EST, [facility], 50, INHALE 2 PUFFS BY MOUTH 4 TIMES DAILY NEEDED FORWHEEZING, 161, cm, 02/10/20 14:26:00 EST, Height, 1... Start Date: 06/07/20 Status: Ordered albuterol-ipratropium 3 mg-0.5 mg/3 ml inhalation solution 3 mL, Neb, 4 times a day, PRN shortness of breath, # 180 mL, 11 Refills, Maintenance, 06/18/20 9:36:00 EDT, Solution, [facility], 3 mL Neb 4 times a day,PRN:shortness of breath, 161, cm, 06/18/20 9:18:00 EDT, Height, 106, kg, 09/11/18 13:37... Start Date: 06/18/20 Status: Ordered Apri 0.15 mg-0.03 mg oral tablet 1 tablet, By Mouth, Daily, start first tablet today, # 1 pack/packet, 3 Refills, Maintenance, 12/09/20 13:48:00 EDT, [facility], Partial fill upon [...] 0 Refills, Maintenance, 02/11/21 12:37:00 EST, ECCapsule, [facility], 163, cm, 01/01/21 [...] each, Refills 5, Route to Pharmacy Electronically, [id number], [facility], 163, cm, 01/01/21 [...] tablet, 11 Refills, Maintenance, 02/10/20 14:25:00 EST, [facility], 161, c... Start [...] each, 11 Refills, Maintenance, 06/18/20 9:35:00 EDT, [facility], 161, cm, 219:18:00 EDT, Height, 106, kg, 09/11/18 13:37:00 EDT... Start Date: 06/18/20 Status: Ordered oxyCODONE 5 mg oral tablet 5 mg, 1, tablet, By Mouth, Every 6 hours, PRN, # 8 tablet, Refills 0, Tot. Refills 0, Maintenance, Pain , Mild, 01/18/21 9:22:00 EDT, Route to Pharmacy Electronically, [facility], Partial fill upon patient request if the prescription is for... Start Date: 01/18/21 Status: Ordered Pregnyl 40022 u injectable powder for injection = 1,000 [...] 30 mL, 5 Refills, Maintenance, 02/03/21 11:55:00EDT, [facility], Partial fill upon patient request if the prescription is for a schedule II opioid drug., 163, cm, 01/01/21 10:10:00 E... Start Date: 02/03/21 Status: Ordered Prometrium 200 mg oral capsule See Instructions, vaginally 3 times a day, # 90 tablet, 5 Refills, Maintenance, 12/31/20 8:22:00 EDT, [facility], Partial fill upon patient request [...] 01/18/21 9:22:00 EDT, Route to Pharmacy Electronically, [facility], Partial fill upon [...] each, Refills 5, Tot. Refills 5, Maintenance, Charles Mix Capped Insulin Syringe for lupron administration, 12/31/20 [...]
--- OUTSIDE RECORDS SUMMARY | 2024-02-22 11:46 | XMS_ITS | Continuity of Care Document ---
Author Organization [facility] Address Unknown Care Team Providers Care Tobacco Farmworker Name Role Phone Nanci Melendez MD Primary Care Physician [phone] [place] [facility] [place] Date(s): 07/11/21 - 08/10/21 [facility] Attending Physician: Marely Fu Admitting Physician: AdmMarely pineda Referring Physician: Admtr, [id number] Allergies, Adverse Reactions, Alerts Substance Reaction Severity [...] Vaccine 11/21/89 Recor ded 1Result Comment: [facility]# [id number] PT. TOLERATED INJ. WITHOUT COMPLICATIONS....CO 2Result Comment: [facility]# [id number] PT. TOLERATED INJ. WITHOUT COMPLICATIONS...CO 3Result Comment: [...] Gm, 10 Refills, Maintenance, 06/07/20 14:34:00 EST, [facility], 50, INHALE 2 PUFFS BY MOUTH 4 TIMES DAILY NEEDED FORWHEEZING, 161, cm, 02/10/20 14:26:00 EST, Height, 1... Start Date: 06/07/20 Status: Ordered Albuterol (Eqv-ProAir HFA) 90 mcg/inh inhalation aerosol See Instructions, INHALE 2 PUFFS BY MOUTH 4 TIMES DAILY NEEDED FOR WHEEZING, # 9 Gm, 6 Refills, [facility], 25, INHALE 2 PUFFS BY MOUTH 4 TIMES DAILY NEEDED FOR WHEEZING, 162, cm, 05/03/21 9:55:00 EST, Height, 105.2, kg, 02/12/21 17:0... Start Date: 06/24/21 Status: Ordered albuterol 0.083% inhalation solution 3 mL = 2.5 mg, Inhalation, Every 6 hours, PRN for wheezing, # 100 each, 5 Refills, Maintenance, 06/24/21 12:33:00 EDT, Solution, [facility], replaces previous Rx for albuterol-ipatropium [...] 0 Refills, Maintenance, 02/11/21 12:37:00 EST, ECCapsule, [facility], 163, cm, 01/01/21 10:10:00 EDT, Height Start Date: 02/11/21 Status: Ordered Endometrin 100 mg vaginal insert = 100 mg, Vaginally, 3 times a day, to add on day of transfer, # 90 supp, 5 Refills, Maintenance, 04/28/21 9:20:00 EST, [facility], Partial fill upon patient [...] each, Refills 5, Route to Pharmacy Electronically, [id number], [facility], 163, cm, 01/01/21 10:10:00 EDT, Height Start Date: 01/28/21 Status: Ordered metFORMIN 500 mg oral tablet, extended release See Instructions, take 1 tablet po w/dinner x1 wk, then increase to 2 tablets x 1-2 wks, then increase to 3 tablets 1-2 wks,then 4 tabs with dinner every day., # 120 tablet, 11 Refills, Maintenance, 03/16/21 11:27:00 EST, [facility], 162, c... 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 Start Date: 06/18/20 Status: Ordered Multivitamins By Mouth, Daily, 0 Refills, Maintenance, 06/05/18 11:27:06 EST Start Date: 06/05/18 Status: Ordered progesterone 50 mg/mL intramuscular solution 100mg/ml 2 ml (sesame oil), Intramuscular, Daily, # 60 mL, 5 Refills, Maintenance, 06/27/21 16:29:00 EDT, [facility], Partial fill upon patient request if the prescription is for a schedule II opioid drug., 162, cm, 05/03/21 9:55:00 E... Start Date: 06/27/21 Status: Ordered Provera 10 mg oral tablet 10 mg, 1, tablet, By Mouth, Daily, # 10 tablet, Refills 0, Tot. Refills 0, Maintenance, 04/04/21 10:58:00 EST, Route to Pharmacy Electronically, [facility], Partial fill upon patient request [...]
--- OUTSIDE RECORDS SUMMARY | 2024-02-22 11:46 | XMS_ITS | Continuity of Care Document ---
Author Organization [email or web address] Address [address] [place] [address], [address] [place] [address]- Care Team Providers Care Academic Affairs Assistant Name Role Phone Al DIEGO, Nanci Segovia Primary Care Physician Encounter [facility] Date(s): 09/16/21 - 09/23/21 [facility] Susan [email or web address] [address], 4th [address] [place], [place] [address] Attending Physician: Connie DIEGO, Estela Marroquin Referring Physician: Emerson Eid MD Allergies, Adverse Reactions, [...] Comment: [facility]# [id number] PT. TOLERATED INJ. WITHOUT COMPLICATIONS....CO 2Result Comment: [facility]# [id number] PT. TOLERATED INJ. WITHOUT COMPLICATIONS...CO 3Result Comment: [04/06/2016] pt. tolerated inj. without complications...CO 4Result Comment: [04/14/2015] Measles mumps rubella titer Medications Albuterol (Eqv-ProAir HFA) 90 mcg/inh inhalation aerosol See Instructions, INHALE 2 PUFFS BY MOUTH 4 TIMES DAILY NEEDED FOR WHEEZING, # 9 Gm, 6 Refills, 08/17/21 9:51:00 EDT, [facility], 25, INHALE 2 PUFFS BY MOUTH 4 TIMES DAILY NEEDED FORWHEEZING, 162, cm, 08/03/21 16:59:00 EDT, Height, 1... Start Date: 08/17/21 Status: Ordered albuterol 0.083% inhalation solution 3 mL = 2.5 mg, Inhalation, Every 6 hours, PRN for wheezing, # 100 each, 5 Refills, Maintenance, 08/17/21 9:51:00 EDT, Solution, [id number], replaces previous Rx for albuterol-ipatropium [...] once daily, # 90 capsule, 1 [facility], [id number], 162, cm, 09/16/21 15:34:00 EDT, [...] Refills, Maintenance, 08/18/21 16:40:00EDT, Tablet, [facility] [...] 08/17/21 9:51:00 EDT, Route to Pharmacy Electronically, [id number], [facility], 162, cm, 08/03/21 16:59:00 EDT, [...] Refills, Maintenance, 03/16/21 11:27:00 EST, [facility], 162, c... Start Date: 03/16/21 [...] oldest [Reference Range]: 1 Height 162 cm (09/16/21 3:34 PM) Weight 109.38 kg (09/16/21 3:34 PM) Body Mass Index [18.5-24.99] 41.68 *>HHI* (09/16/21 3:34 PM) Blood Pressure [90-138/55-84 mm Hg] 108/ 72mm Hg (09/16/21 3:34 PM) Blood pressure sites Arm, right (09/16/21 3:34 PM) Weight Obtained Via Standing scale (09/16/21 3:34 PM) Social History Social History Type Response Smoking Status Never smoker; Tobacc o user in household: No entered on: 07/02/15 Sex
--- OUTSIDE RECORDS SUMMARY | 2024-02-22 11:46 | XMS_ITS | Continuity of Care Document ---
Author Organization [facility] Address [address] [place] [address]- Care Team Providers Care Enamel Pulverizer Name Role Phone Nanci Melendez MD Primary Care Physician Encounter [facility] Date(s): 11/21/23 - 12/21/23 [facility] [address] [place], [place] [address] Allergies, Adverse Reactions, Alerts Substance Reaction [...] Vaccine 11/21/89 Recor ded 1Result Comment: [facility]# [id number] PT. TOLERATED INJ. WITHOUT COMPLICATIONS....CO 2Result Comment: [facility]# [id number] PT. TOLERATED INJ. WITHOUT COMPLICATIONS...CO 3Result Comment: [04/06/2016] pt. tolerated inj. without complications...CO 4Result Comment: [04/14/2015] Measles mumps rubella titer Medications albuterol 0.083% inhalation solution 3 mL = 2.5 mg, Inhalation, Every 6 hours, PRN for wheezing, # 100 each, 5 Refills, Maintenance, 06/19/22 15:15:00 EDT, Solution, [id number], replaces previous Rx for albuterol-ipatropium solution, 163, cm, 05/01/22 14:15:00 EST, Height, 128.2,... Start Date: 06/19/22 Status: Ordered Dexilant 60 mg oral delayed release capsule See Instructions, Take 1 capsule by mouth once daily, # 90 capsule, 0 Refills, 03/14/22 14:26:00 EST, [facility], 163, cm, 02/27/22 9:06:00 [...] tablet, 11 Refills, Maintenance, 08/18/21 16:40:00EDT, Tablet, [facility], Partial fill upon patient request if the prescription is for a schedule II opioid drug., 162, cm, 08/18/21 13:09:00... Start Date: 08/18/21 Status: Ordered Flonase 1 sprays, Daily, 0 Refills, Maintenance, 04/10/16 10:01:51 Start Date: 1/9/17 Status: Ordered fluticasone-salmeterol 500 mcg-50 mcg inhalation powder 1, Doses, Inhalation, 2 times a day, # 60 each, Refills 5, Tot. Refills 5, 03/12/23 11:30:00 EST, Route to Pharmacy Electronically, [id number], [facility] #[id number], 163, cm, 03/02/23 13:11:00 EST, Height, 128.2, kg, 02/05/22 1... 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, 08/30/18 17:26:09 EDT, Compound Start Date: 08/30/18 Status: Ordered norethindrone 0.35 mg oral tablet 1 tablet, By Mouth, Daily, # 84 tablet, 5 Refills, Maintenance, 08/16/22 9:41:00 EDT, [id number], 163, cm, 05/01/22 14:15:00 EST, Height, 128.2, kg, 02/05/22 12:22:00 EST, Dry Weight Start Date: 08/16/22 Status: Ordered ondansetron 4 mg oral tablet 1 tablet, By Mouth, Every 8 hours, PRN NEEDED FOR NAUSEA AND VOMITING FOR, # 15 tablet, 3 Refills, Maintenance, 09/14/23 16:11:00 EDT, [id number], 160, cm, 07/21/23 8:30:00 EDT, Height, 114, kg, 07/21/23 8:30:00 EDT, Dry Weight Start Date: 09/14/23 Stop Date: 09/19/23 Status: Ordered Multivitamins By Mouth, Daily, 0 Refills, Maintenance, 06/05/18 11:27:06 EST Start Date: 06/05/18 Status: Ordered Ventolin HFA 108 mcg/inh inhalation aerosol with adapter 2 puffs, Inhalation, Every 4 hours, PRN for wheezing, # 8 Gm, 5 Refills, Maintenance, 12/13/23 12:46:00 EDT, Aerosol, [facility]acy #[id number], Partial fill upon patient [...] Personnel Name: Macario DIEGO, Adela Marroquin Position: [facility] NAILER OPERATOR MD Member Role: Lifetime NAILER OPERATOR Physician Address: Address: [address] [place] [address], [address] Name: Nanci Melendez MD Position: [facility] Physician - Primary Care Member Role: PCP Address: Address: [address] [place] [address]- Name: Tammy Schuler Position: [facility] Outreach Member Role: Lifetime Consulting Physician Care Team Related Persons Name: ERMA SEAN Address: [address] Address: home [address] [place] [address] [place] Name: DERRELL RITCHIE Address: home [address] [place] [address] Name: DERRELL RITCHIE Address: home [address] [place] [address] Name: DERRELL RITCHIE Address: home [address] [place] [address] Name: SHEBA CANO Address: home [address] [place] [address] Name: DAYANNA CANO Address: home [address] [place] [address]
--- OUTSIDE RECORDS SUMMARY | 2024-02-22 11:46 | XMS_ITS | Continuity of Care Document ---
Author Organization [facility] Address [address], [address]t [address] [place] [address]- Care Team Providers Care Community Specialist Name Role Phone Al DIEGO, Nanci Segovia Primary Care Physician Encounter [facility] Date(s): 10/05/20 - 11/04/20 [facility] [address] [place] [address], [address] [place] [address]- Allergies, Adverse Reactions, Alerts Substance Reaction Severity [...] Vaccine 11/21/89 Recor ded 1Result Comment: [facility]# [id number] PT. TOLERATED INJ. WITHOUT COMPLICATIONS....CO 2Result Comment: [facility]# [id number] PT. TOLERATED INJ. WITHOUT COMPLICATIONS...CO 3Result Comment: [04/06/2016] pt. tolerated inj. without complications...CO 4Result Comment: [04/14/2015] Measles mumps rubella titer Medications Advair Diskus 500 mcg-50 mcg inhalation powder 1, puffs, Inhalation, 2 times a day, # 1 each, Refills 12, Tot. Refills 12, Maintenance, 12/24/19 13:40:00 EDT, Route to Pharmacy Electronically, [id number], [facility], 161, cm, 06/12/19 8:56:00 EDT, Height, 106,... Start Date: 12/24/19 Status: Ordered Albuterol (Eqv-ProAir HFA) 90 mcg/inh inhalation aerosol 2 puffs, Inhalation, 4 times a day, PRN NEEDED FOR WHEEZING, # 18 Gm, 10 Refills, Maintenance, 06/07/20 14:34:00 EST, [facility], 50, INHALE 2 PUFFS BY MOUTH 4 TIMES DAILY NEEDED FORWHEEZING, 161, cm, 02/10/20 14:26:00 EST, Height, 1... Start Date: 06/07/20 Status: Ordered albuterol-ipratropium 3 mg-0.5 mg/3 ml inhalation solution 3 mL, Neb, 4 times a day, PRN shortness of breath, # 180 mL, 11 Refills, Maintenance, 06/18/20 9:36:00 EDT, Solution, [facility], 3 mL Neb 4 times a day,PRN:shortness of breath, 161, cm, 06/18/20 9:18:00 EDT, Height, 106, kg, 09/11/18 13:37... Start Date: 06/18/20 Status: Ordered Apri 0.15 mg-0.03 mg oral tablet 1 tablet, By Mouth, Daily, start first tablet today, # 1 pack/packet, 3 Refills, Maintenance, 09/10/20 10:08:00 EDT, [facility], Partial fill upon patient [...] Maintenance, 12/24/19 13:41:00 EDT, ECCapsule, [facility], 161, cm, 06/12/19 8:56:00 [...] Refills, Maintenance, 02/10/20 14:25:00 EST, [facility], 161, c... Start Date: [...] Refills, Maintenance, 06/18/20 9:35:00 EDT, [facility], 161, cm, 219:18:00 EDT, [...]
--- OUTSIDE RECORDS SUMMARY | 2024-02-22 11:46 | XMS_ITS | Continuity of Care Document ---
Author Organization [facility] Address [address] [facility] [address] [facility], 4t [address] [place] [address]- Care Team Providers Care Pasteuriser Operator Name Role Phone Al DIEGO, Nanci Segovia Primary Care Physician [phone] [place] [facility] Date(s): 08/04/20 - 09/03/20 [facility] [address] [place] [address], [address] [place] [id number] Allergies, Adverse Reactions, Alerts Substance [...] [facility]# [id number] PT. TOLERATED INJ. WITHOUT COMPLICATIONS....CO 2Result Comment: [facility]# [id number] PT. TOLERATED INJ. WITHOUT COMPLICATIONS...CO 3Result Comment: [04/06/2016] pt. tolerated inj. without complications...CO 4Result Comment: [04/14/2015] Measles mumps rubella titer Medications Advair Diskus 500 mcg-50 mcg inhalation powder 1, puffs, Inhalation, 2 times a day, # 1 each, Refills 12, Tot. Refills 12, Maintenance, 12/24/19 13:40:00 EDT, Route to Pharmacy Electronically, [id number], [facility], 161, cm, 06/12/19 8:56:00 EDT, Height, 106,... Start Date: 12/24/19 Status: Ordered Albuterol (Eqv-ProAir HFA) 90 mcg/inh inhalation aerosol 2 puffs, Inhalation, 4 times a day, PRN NEEDED FOR WHEEZING, # 18 Gm, 10 Refills, Maintenance, 06/07/20 14:34:00 EST, [facility] 1967, 50, INHALE 2 PUFFS BY MOUTH 4 TIMES DAILY NEEDED FORWHEEZING, 161, cm, 02/10/20 14:26:00 EST, Height, 1... Start Date: 06/07/20 Status: Ordered albuterol-ipratropium 3 mg-0.5 mg/3 ml inhalation solution 3 mL, Neb, 4 times a day, PRN shortness of breath, # 180 mL, 11 Refills, Maintenance, 06/18/20 9:36:00 EDT, Solution, [facility], 3 mL Neb 4 [...] 3 Refills, Maintenance, 12/24/19 13:41:00 EDT, [facility], 161, cm, 06/12/19 8:56:00 [...] tablet, 11 Refills, Maintenance, 02/10/20 14:25:00 EST, [facility], 161, c... Start Date: [...] each, 11 Refills, Maintenance, 06/18/20 9:35:00 EDT, [facility], 161, cm, :18:00 EDT, [...] 07/09/20 16:28:00 EDT, Route to Pharmacy Electronically, [facility], Partial fill upon patient [...]
--- OUTSIDE RECORDS SUMMARY | 2024-02-22 11:46 | XMS_ITS | Continuity of Care Document ---
Author Organization [facility] Address Unknown Care Team Providers Care Etiquette Coach Name Role Phone Nanci Melendez MD Primary Care Physician [facility] Date(s): 12/29/20 - 01/28/21 [facility] Allergies, Adverse Reactions, Alerts Substance [...] Recor ded 1Result Comment: [facility]# [id number] PT. TOLERATED INJ. WITHOUT COMPLICATIONS....CO 2Result Comment: [facility]# [id number] PT. TOLERATED INJ. WITHOUT COMPLICATIONS...CO 3Result Comment: [...] Gm, 10 Refills, Maintenance, 06/07/20 14:34:00 EST, [facility], 50, INHALE 2 PUFFS BY MOUTH 4 TIMES DAILY NEEDED FORWHEEZING, 161, cm, 02/10/20 14:26:00 EST, Height, 1... Start Date: 06/07/20 Status: Ordered albuterol-ipratropium 3 mg-0.5 mg/3 ml inhalation solution 3 mL, Neb, 4 times a day, PRN shortness of breath, # 180 mL, 11 Refills, Maintenance, 06/18/20 9:36:00 EDT, Solution, [facility], 3 mL Neb 4 times a day,PRN:shortness of breath, 161, cm, 06/18/20 9:18:00 EDT, Height, 106, kg, 09/11/18 13:37... Start Date: 06/18/20 Status: Ordered Apri 0.15 mg-0.03 mg oral tablet 1 tablet, By Mouth, Daily, start first tablet today, # 1 pack/packet, 3 Refills, Maintenance, 12/09/20 13:48:00 EDT, [facility], Partial fill [...] 3 Refills, Maintenance, 12/24/19 13:41:00 EDT, ECCapsule, [facility], 161, cm, 06/12/19 8:56:00 EDT, Height, 106, kg, 09/11/18 13:37:00 EDT, Dry Weight Start Date: 12/24/19 Status: Ordered doxycycline hyclate 100 mg oral tablet 1 tablet = 100 mg, By Mouth, 2 times a day, # 28 tablet, 5 Refills, Maintenance, 12/31/20 8:23:00 EDT, [facility], Partial fill upon patient request [...] each, Refills 5, Route to Pharmacy Electronically, [id number], [facility], 163, cm, 01/01/21 10:10:00 EDT, Height Start Date: 01/28/21 Status: Ordered ganirelix 250 mcg/0.5 ml subcutaneous injection 0.5 mL = 250 mcg, Subcutaneous Injection, Daily, # 5 each, 5 Refills, Acute 02/20/21 8:26:00 EST, 12/31/20 8:23:00 EDT, Solution, [facility], Partial fill upon patient request if theprescription is for a schedule II opioid drug., 161... Start Date: 12/31/20 Stop Date: 02/20/21 Status: Ordered Gonal-F 1050 units subcutaneous injection = 150 International_Units, Subcutaneous Injection, Daily, # 2 kit, 5 Refills, Maintenance, 218:23:00 EDT, [facility], Partial fill upon patient request [...] 02/20/21 8:26:00 EST, 12/31/20 8:22:00 EDT, Powder, [facility], Partial fill upon patient requestif [...] tablet, 11 Refills, Maintenance, 02/10/20 14:25:00 EST, [facility], 161, c... [...] each, 11 Refills, Maintenance, 06/18/20 9:35:00 EDT, [facility], 161, cm, 219:18:00 EDT, Height, 106, kg, 09/11/18 13:37:00 EDT... Start Date: 06/18/20 Status: Ordered oxyCODONE 5 mg oral tablet 5 mg, 1, tablet, By Mouth, Every 6 hours, PRN, # 8 tablet, Refills 0, Tot. Refills 0, Maintenance, Pain , Mild, 01/18/21 9:22:00 EDT, Route to Pharmacy Electronically, [facility] 1966, Partial fill upon patient request if the prescription is for... Start Date: 01/18/21 Status: Ordered Pregnyl 12502 u injectable powder for injection = 1,000 units, Intramuscular, Once, For use as trigger shot. Use 3 mL of diluent to reconstitute powder. Draw and administer 0.3 mL of reconsituted pregnyl for total dose of 1000 units., # 1 kit, 5 Refills, Soft Stop, 12/31/20 8:24:00 EDT, [facility]... Start Date: 12/31/20 Status: Ordered Multivitamins By Mouth, Daily, 0 Refills, Maintenance, 06/05/18 11:27:06 EST Start Date: 06/05/18 Status: Ordered Prometrium 200 mg oral capsule See Instructions, vaginally 3 times a day, # 90 tablet, 5 Refills, Maintenance, 12/31/20 8:22:00 EDT, [facility], Partial fill upon patient request [...] 01/18/21 9:22:00 EDT, Route to Pharmacy Electronically, [facility] 1966, Partial fill upon [...] patch, 5 Refills, Maintenance, 12/31/20 8:23:00 EDT, [facility], Partial fill upon patient request if the prescription is for a schedule II opio... Start Date: 12/31/20 Status: Ordered yes yes, See Instructions, # 2 each, Refills 5, Tot. Refills 5, Maintenance, Timpson Capped Insulin Syringe for lupron administration, 12/31/20 [...]
--- OUTSIDE RECORDS SUMMARY | 2024-02-22 11:46 | XMS_ITS | Continuity of Care Document ---
Author Organization [facility] ter Address [address] [place] [address]- Care Team Providers Care Cage Fighter Name Role Phone Nanci Melendez MD Primary Care Physician [phone] Encounter [facility] Date(s): 07/02/21 - 07/02/[address] [address] Discharge Disposition: A-D/C Home Attending Physician: [...] Vaccine 11/21/89 Recor ded 1Result Comment: [facility][NOTE 3]# [id number] PT. TOLERATED INJ. WITHOUT COMPLICATIONS....CO 2Result Comment: [facility][NOTE 3]# [id number] PT. TOLERATED INJ. WITHOUT COMPLICATIONS...CO 3Result Comment: [...] Gm, 10 Refills, Maintenance, 06/07/20 14:34:00 EST, [facility], 50, INHALE 2 PUFFS BY MOUTH 4 TIMES DAILY NEEDED FORWHEEZING, 161, cm, 02/10/20 14:26:00 EST, Height, 1... Start Date: 06/07/20 Status: Ordered Albuterol (Eqv-ProAir HFA) 90 mcg/inh inhalation aerosol See Instructions, INHALE 2 PUFFS BY MOUTH 4 TIMES DAILY NEEDED FOR WHEEZING, # 9 Gm, 6 Refills, [facility] 1967, 25, INHALE 2 PUFFS BY MOUTH 4 TIMES DAILY NEEDED FOR WHEEZING, 162, cm, 05/03/21 9:55:00 EST, Height, 105.2, kg, 02/12/21 17:0... Start Date: 06/24/21 Status: Ordered albuterol 0.083% inhalation solution 3 mL = 2.5 mg, Inhalation, Every 6 hours, PRN for wheezing, # 100 each, 5 Refills, Maintenance, 06/24/21 12:33:00 EDT, Solution, [facility], replaces previous Rx for albuterol-ipatropium solution, 162, cm, 05/03/21 9:55:00 EST, Height, 105.... Start Date: 06/24/21 Status: Ordered Apri 0.15 mg-0.03 mg oral tablet 1 tablet, By Mouth, Daily, start first tablet today, # 1 pack/packet, 3 Refills, Maintenance, 12/09/20 13:48:00 EDT, [facility] 1967, Partial fill upon patient [...] capsule, 0 Refills, Maintenance, 02/11/21 12:37:00 EST, [place], [facility], 163, cm, 01/01/21 10:10:00 EDT, Height Start Date: 02/11/21 Status: Ordered Endometrin 100 mg vaginal insert = 100 mg, Vaginally, 3 times a day, to add on day of transfer, # 90 supp, 5 Refills, Maintenance, 04/28/21 9:20:00 EST, [facility], Partial fill [...] each, Refills 5, Route to Pharmacy Electronically, [id number], [facility], 163, cm, 01/01/21 10:10:00 EDT, Height Start Date: 01/28/21 Status: Ordered metFORMIN 500 mg oral tablet, extended release See Instructions, take 1 tablet po w/dinner x1 wk, then increase to 2 tablets x 1-2 wks, then increase to 3 tablets 1-2 wks,then 4 tabs with dinner every day., # 120 tablet, 11 Refills, Maintenance, 03/16/21 11:27:00 EST, [facility], 162, c... 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 Start Date: 06/18/20 Status: Ordered oxyCODONE 5 mg oral tablet 5 mg, 1, tablet, By Mouth, Every 6 hours, PRN, # 8 tablet, Refills 0, Tot. Refills 0, Maintenance, Pain , Mild, 01/18/21 9:22:00 EDT, Route to Pharmacy Electronically, [facility] 1966, Partial fill upon patient request if the prescription is for... Start Date: 01/18/21 Status: Ordered Multivitamins By Mouth, Daily, 0 Refills, Maintenance, 06/05/18 11:27:06 EST Start Date: 06/05/18 Status: Ordered progesterone 50 mg/mL intramuscular solution 100mg/ml 2 ml (sesame oil), Intramuscular, Daily, # 60 mL, 5 Refills, Maintenance, 06/27/21 16:29:00 EDT, [facility], Partial fill upon patient request if the prescription is for a schedule II opioid drug., 162, cm, 05/03/21 9:55:00 E... Start Date: 06/27/21 Status: Ordered Provera 10 mg oral tablet 10 mg, 1, tablet, By Mouth, Daily, # 10 tablet, Refills 0, Tot. Refills 0, Maintenance, 04/04/21 10:58:00 EST, [email or web address], Partial fill upon patient request [...] Pharmacy Electronically, [facility], Partial fill upon patient request if the... Start Date: 01/18/21 Status: Ordered Valium 5 mg oral tablet 5 mg, 1, tablet, By Mouth, Once, One tablet one hour prior to procedure, may repeat x 1 as needed for anxiety, # 2 tablet, Refills 0, Tot. Refills 0, Soft Stop, 06/04/21 13:10:00 EST, Route to Pharmacy Electronically, [email or web address], Partial fi... Start Date: 06/04/21 [...] patch, 5 Refills, Maintenance, 06/27/21 16:29:00 EDT, [facility], Partial fill [...] recent to oldest [Reference Range]: 1 Weight 105.8 kg (07/02/21 11:24 AM) Blood Pressure [90-138/55-84 mm Hg] 114/ 76mm Hg (07/02/21 11:24 AM) Respiratory Rate [16-30 br/min] 18 br/mi n (07/02/21 11:24 AM) Temperature [96.8-100.4 DegF] 98.7 DegF (07/02/21 11:24 AM) Mode of Delivery (Oxygen) Room air (07/02/21 11:24 AM) Temperature Route Oral (07/02/21 11:24 AM) Dry Weight 105.8 kg (07/02/21 11:24 AM) Weight Obtained Via Standing scale (07/02/21 11:24 AM) Dry Weight Obtained Via Standing scale (07/02/21 11:24 AM) Social History Social History Type Response Smoking Status Never smoker; Tobacc o user in household: No entered on: 07/02/15 Sex
--- OUTSIDE RECORDS SUMMARY | 2024-02-22 11:46 | XMS_ITS | Continuity of Care Document ---
Author Organization [facility] Address [address] [facility], 4t h [address] [place] [address]- Care Team Providers Care Food And Nutrition Professor Name Role Phone Nanci Melendez MD Primary Care Physician Encounter [facility] Date(s): 08/29/20 - 09/05/20 [facility] [address] [place] [address], 4th [address] [place] [address]- Attending Physician: Tiffanie Lopes MD Referring Physician: [...] [facility]# [id number] PT. TOLERATED INJ. WITHOUT COMPLICATIONS....CO 2Result Comment: [facility]# [id number] PT. TOLERATED INJ. WITHOUT COMPLICATIONS...CO 3Result Comment: [04/06/2016] pt. tolerated inj. without complications...CO 4Result Comment: [04/14/2015] Measles mumps rubella titer Medications Advair Diskus 500 mcg-50 mcg inhalation powder 1, puffs, Inhalation, 2 times a day, # 1 each, Refills 12, Tot. Refills 12, Maintenance, 12/24/19 13:40:00 EDT, Route to Pharmacy Electronically, [id number], [facility], 161, cm, 06/12/19 8:56:00 EDT, Height, 106,... Start Date: 12/24/19 Status: Ordered Albuterol (Eqv-ProAir HFA) 90 mcg/inh inhalation aerosol 2 puffs, Inhalation, 4 times a day, PRN NEEDED FOR WHEEZING, # 18 Gm, 10 Refills, Maintenance, 06/07/20 14:34:00 EST, [facility], 50, INHALE 2 PUFFS BY MOUTH 4 TIMES DAILY NEEDED FORWHEEZING, 161, cm, 02/10/20 14:26:00 EST, Height, 1... Start Date: 06/07/20 Status: Ordered albuterol-ipratropium 3 mg-0.5 mg/3 ml inhalation solution 3 mL, Neb, 4 times a day, PRN shortness of breath, # 180 mL, 11 Refills, Maintenance, 06/18/20 9:36:00 EDT, Solution, [facility], 3 mL Neb 4 times [...] 12/24/19 13:41:00 EDT, ECCapsule, [facility], 161, cm, 06/12/19 8:56:00 [...] Maintenance, 02/10/20 14:25:00 EST, [facility], 161, c... Start Date: [...] Maintenance, 06/18/20 9:35:00 EDT, [facility], 161, cm, 219:18:00 EDT, [...] 07/09/20 16:28:00 EDT, Route to Pharmacy Electronically, [facility] 1966, Partial fill upon patient [...]
--- OUTSIDE RECORDS SUMMARY | 2024-02-22 11:46 | XMS_ITS | Continuity of Care Document ---
Author Organization [facility] Address [address] [place] [address]- Care Team Providers Care Assistant Refinery Operator Name Role Phone Nanci Melendez MD Primary Care Physician Encounter [facility] Date(s): 06/12/19 - 06/22/19 [facility] [address] [place] [address]- [facility] Attending Physician: AdmMarely pineda Admitting Physician: Admtr, Marely Referring Physician: Admtr, Ar8 Allergies, Adverse Reactions, [...] Recor ded 1Result Comment: [facility]# [id number] PT. TOLERATED INJ. WITHOUT COMPLICATIONS....CO 2Result Comment: [facility]# [id number] PT. TOLERATED INJ. WITHOUT COMPLICATIONS...CO 3Result Comment: [04/06/2016] pt. tolerated inj. without complications...CO 4Result Comment: [04/14/2015] Measles mumps rubella titer Medications Advair Diskus 500 mcg-50 mcg inhalation powder 1, puffs, Inhalation, 2 times a day, # 60 Doses, Refills 12, Tot. Refills 12, Maintenance, 06/05/1910:25:22 EST, Route to Pharmacy Electronically, [id number], [facility] 1966 Start Date: 06/05/18 Status: Ordered albuterol 0.083% inhalation solution 3 mL = 2.5 mg, Inhalation, Every 6 hours, PRN for wheezing, # 60 each, 11 Refills, Maintenance, 06/20/19 9:26:00 EDT, Solution, [facility] 1966, 161, cm, 06/12/19 8:56:00 [...] Refills, Maintenance, 06/12/19 9:48:00 EDT, EC Capsule, [facility], 161, cm, 06/12/19 8:56:00 [...] DAYS, # 15 each, 5 Refills, Maintenance, [facility] 1967, 161, cm, 01/20/19 11:38:00 EDT, Height, [...] 15:55:00 EST, Aerosol, Route to Pharmacy Electronically, [id number], [facility], 161, cm, 01/20/19 11:38:00 [...]
--- OUTSIDE RECORDS SUMMARY | 2024-02-22 11:46 | XMS_ITS | Continuity of Care Document ---
Author Organization [facility] Address [address] [place] [address]- Care Team Providers Care Sales And Service Change Leader Name Role Phone Al DIEGO, Nanci Segovia Primary Care Physician [facility]counter [facility] Date(s): 05/28/23 - 06/27/23 [facility] [address] [place] [address]- Allergies, Adverse Reactions, Alerts Substance Reaction Severity [...] 11/21/89 Recor ded 1Result Comment: [facility]# [id number] PT. TOLERATED INJ. WITHOUT COMPLICATIONS....CO 2Result Comment: [facility]# [id number] PT. TOLERATED INJ. WITHOUT COMPLICATIONS...CO 3Result Comment: [04/06/2016] pt. tolerated inj. without complications...CO 4Result Comment: [04/14/2015] Measles mumps rubella titer Medications albuterol 0.083% inhalation solution 3 mL = 2.5 mg, Inhalation, Every 6 hours, PRN for wheezing, # 100 each, 5 Refills, Maintenance, 06/19/22 15:15:00 EDT, Solution, [id number], replaces previous Rx for albuterol-ipatropium solution, 163, cm, 05/01/22 14:15:00 EST, Height, 128.2,... Start Date: 06/19/22 Status: Ordered Dexilant 60 mg oral delayed release capsule See Instructions, Take 1 capsule by mouth once daily, # 90 capsule, 0 Refills, 03/14/22 14:26:00 EST, [facility] 1967, 163, cm, 02/27/22 9:06:00 [...] tablet, 11 Refills, Maintenance, 08/18/21 16:40:00EDT, Tablet, [facility], Partial fill upon patient [...] 03/12/23 11:30:00 EST, Route to Pharmacy Electronically, [id number], [facility] #[id number], 163, cm, 03/02/23 13:11:00 EST, Height, 128.2, kg, 02/05/22 1... 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, 08/30/18 17:26:09 EDT, Compound Start Date: 08/30/18 Status: Ordered norethindrone 0.35 mg oral tablet 1 tablet, By Mouth, Daily, # 84 tablet, 5 Refills, Maintenance, 08/16/22 9:41:00 EDT, [id number], 163, cm, 05/01/22 14:15:00 EST, Height, 128.2, kg, 02/05/22 12:22:00 EST, Dry Weight Start Date: 08/16/22 Status: Ordered ondansetron 4 mg oral tablet See Instructions, TAKE 1 TABLET BY MOUTH EVERY 8 HOURS NEEDED FOR NAUSEA AND VOMITING FOR 5 DAYS, # 15 each, 11 Refills, Maintenance, 06/19/22 15:15:00 EDT, [facility] #[id number], 163, cm, 05/01/22 14:15:00 EST, Height, 128.2, kg, 02/05/22 12:22:00 ES... Start Date: 06/19/22 Status: Ordered Multivitamins By Mouth, Daily, 0 Refills, Maintenance, 06/05/18 11:27:06 EST Start Date: 06/05/18 Status: Ordered Ventolin HFA 108 mcg/inh inhalation aerosol with adapter 2 puffs, Inhalation, Every 4 hours, PRN for wheezing, # 8 Gm, 5 Refills, Maintenance, 03/12/23 11:35:00 EST, Aerosol, [facility] #[id number], Partial fill upon patient request if [...] Personnel Name: Macario DIEGO, Adela Marroquin Position: [facility] SYNCHRO ASSEMBLER MD Member Role: Lifetime SYNCHRO ASSEMBLER Physician Address: Address: [address] [place] [address], [address] Name: Nanci Melendez MD Position: [facility] Physician - Primary Care Member Role: PCP Address: Address: [address] [place] [address] Care Team Related Persons Name: SEAN RITCHIE Address: [address] Address: [address] [place] [address] Name: DERRELL RITCHIE Address: home [address] [facility] [address] [place] [address] Name: DERRELL RITCHIE Address: home [address] [address] Name: DERRELL RITCHIE Address: home [address] [facility] [address] [place] [address] Name: SHEBA CANO Address: home [address] [place] [address] Name: DAYANNA CANO Address: home [address] [place] [address]
--- OUTSIDE RECORDS SUMMARY | 2024-02-22 11:46 | XMS_ITS | Continuity of Care Document ---
Author Organization [facility] ter Address [address] [place] [address]- Care Team Providers Care Quarter Seamer Name Role Phone Al DIEGO, Nanci Segovia Primary Care Physician Encounter [facility] Date(s): 08/05/20 - 09/10/[address] [address]- Attending Physician: Lb BILLINGS, Ignacia Rocha Admitting Physician: Lb BILLINGS, Ignacia Rocha Referring Physician: Lb BILLINGS, Ignacia Rocha Allergies, Adverse Reactions, Alerts Substance Reaction Severity [...] ded 1Result Comment: [facility]# [id number] PT. TOLERATED INJ. WITHOUT COMPLICATIONS....CO 2Result Comment: [facility]# [id number] PT. TOLERATED INJ. WITHOUT COMPLICATIONS...CO 3Result Comment: [04/06/2016] pt. tolerated inj. without complications...CO 4Result Comment: [04/14/2015] Measles mumps rubella titer Medications Advair Diskus 500 mcg-50 mcg inhalation powder 1, puffs, Inhalation, 2 times a day, # 1 each, Refills 12, Tot. Refills 12, Maintenance, 12/24/19 13:40:00 EDT, Route to Pharmacy Electronically, [id number], [facility], 161, cm, 06/12/19 8:56:00 EDT, Height, 106,... Start Date: 12/24/19 Status: Ordered Albuterol (Eqv-ProAir HFA) 90 mcg/inh inhalation aerosol 2 puffs, Inhalation, 4 times a day, PRN NEEDED FOR WHEEZING, # 18 Gm, 10 Refills, Maintenance, 06/07/20 14:34:00 EST, [facility] 1967, 50, INHALE 2 PUFFS BY MOUTH 4 TIMES DAILY NEEDED FORWHEEZING, 161, cm, 02/10/20 14:26:00 EST, Height, 1... Start Date: 06/07/20 Status: Ordered albuterol-ipratropium 3 mg-0.5 mg/3 ml inhalation solution 3 mL, Neb, 4 times a day, PRN shortness of breath, # 180 mL, 11 Refills, Maintenance, 06/18/20 9:36:00 EDT, Solution, [facility], 3 mL Neb 4 times a day,PRN:shortness of breath, 161, cm, 06/18/20 9:18:00 EDT, Height, 106, kg, 09/11/18 13:37... Start Date: 06/18/20 Status: Ordered Apri 0.15 mg-0.03 mg oral tablet 1 tablet, By Mouth, Daily, start first tablet today, # 1 pack/packet, 3 Refills, Maintenance, 09/10/20 10:08:00 EDT, [facility], Partial fill [...] 3 Refills, Maintenance, 12/24/19 13:41:00 EDT, ECCapsule, [facility], 161, cm, 06/12/19 8:56:00 [...] tablet, 11 Refills, Maintenance, 02/10/20 14:25:00 EST, [facility], 161, c... Start Date: [...] each, 11 Refills, Maintenance, 06/18/20 9:35:00 EDT, [facility], 161, cm, 219:18:00 EDT, [...] 07/09/20 16:28:00 EDT, Route to Pharmacy Electronically, [facility], Partial fill [...]
--- OUTSIDE RECORDS SUMMARY | 2024-02-22 11:46 | XMS_ITS | Continuity of Care Document ---
Author Organization [facility] Address [address] [place] [address], [address]t [address] [place] [address]- Care Team Providers Care Police Patrol Lieutenant Name Role Phone Al DIEGO, Nanci Segovia Primary Care Physician [facility]counter [facility] Date(s): 05/19/20 - 06/18/20 [facility] [address] [place] [address], [address] [place] [address] Allergies, Adverse Reactions, Alerts Substance [...] Comment: [facility]# [id number] PT. TOLERATED INJ. WITHOUT COMPLICATIONS....CO 2Result Comment: [facility]# [id number] PT. TOLERATED INJ. WITHOUT COMPLICATIONS...CO 3Result Comment: [04/06/2016] pt. tolerated inj. without complications...CO 4Result Comment: [04/14/2015] Measles mumps rubella titer Medications Advair Diskus 500 mcg-50 mcg inhalation powder 1, puffs, Inhalation, 2 times a day, # 1 each, Refills 12, Tot. Refills 12, Maintenance, 12/24/19 13:40:00 EDT, Route to Pharmacy Electronically, [id number], [facility], 161, cm, 06/12/19 8:56:00 EDT, Height, 106,... Start Date: 12/24/19 Status: Ordered Albuterol (Eqv-ProAir HFA) 90 mcg/inh inhalation aerosol 2 puffs, Inhalation, 4 times a day, PRN NEEDED FOR WHEEZING, # 18 Gm, 10 Refills, Maintenance, 06/07/20 14:34:00 EST, [facility], 50, INHALE 2 PUFFS BY MOUTH 4 TIMES DAILY NEEDED FORWHEEZING, 161, cm, 02/10/20 14:26:00 EST, Height, 1... Start Date: 06/07/20 Status: Ordered albuterol-ipratropium 3 mg-0.5 mg/3 ml inhalation solution 3 mL, Neb, 4 times a day, PRN shortness of breath, # 180 mL, 11 Refills, Maintenance, 06/18/20 9:36:00 EDT, Solution, [facility], [...] 3 Refills, Maintenance, 12/24/19 13:41:00 EDT, ECCapsule, [facility], 161, cm, 06/12/19 8:56:00 [...] tablet, 3 Refills, Maintenance, 06/08/20 8:28:00 EST, [facility], 161, cm, 02/10/20 14:26:00 [...] tablet, 11 Refills, Maintenance, 02/10/20 14:25:00 EST, [facility], 161, c... Start Date: [...]
--- OUTSIDE RECORDS SUMMARY | 2024-02-22 11:46 | XMS_ITS | Continuity of Care Document ---
Author Organization [facility] e Medicine Address Unknown Care Team Providers Care Singe Winder Name Role Phone Al DIEGO, Nanci Segovia Primary Care Physician [phone] Encounter [facility] Date(s): 02/09/21 - 02/16/21 [facility] Attending Physician: Not [...] ded 1Result Comment: [facility]# [id number] PT. TOLERATED INJ. WITHOUT COMPLICATIONS....CO 2Result Comment: [facility]# [id number] PT. TOLERATED INJ. WITHOUT COMPLICATIONS...CO 3Result Comment: [...] 10 Refills, Maintenance, 06/07/20 14:34:00 EST, [facility] 1967, 50, INHALE 2 PUFFS BY MOUTH 4 TIMES DAILY NEEDED FORWHEEZING, 161, cm, 02/10/20 14:26:00 EST, Height, 1... Start Date: 06/07/20 Status: Ordered albuterol-ipratropium 3 mg-0.5 mg/3 ml inhalation solution 3 mL, Neb, 4 times a day, PRN shortness of breath, # 180 mL, 11 Refills, Maintenance, 06/18/20 9:36:00 EDT, Solution, [facility] 1967, 3 mL Neb 4 times a day,PRN:shortness of breath, 161, cm, 06/18/20 9:18:00 EDT, Height, 106, kg, 09/11/18 13:37... Start Date: 06/18/20 Status: Ordered Apri 0.15 mg-0.03 mg oral tablet 1 tablet, By Mouth, Daily, start first tablet today, # 1 pack/packet, 3 Refills, Maintenance, 12/09/20 13:48:00 EDT, [facility] 1967, Partial fill upon patient [...] 0 Refills, Maintenance, 02/11/21 12:37:00 EST, ECCapsule, [facility], 163, cm, 01/01/21 10:10:00 [...] each, Refills 5, Route to Pharmacy Electronically, [id number], [facility], 163, cm, 01/01/21 10:10:00 EDT, Height Start Date: 01/28/21 Status: Ordered ganirelix 250 mcg/0.5 ml subcutaneous injection 0.5 mL = 250 mcg, Subcutaneous Injection, Daily, # 5 each, 5 Refills, Acute 02/20/21 8:26:00 EST, 12/31/20 8:23:00 EDT, Solution, [facility], Partial fill upon patient request if theprescription is for a schedule II opioid drug., 161... Start Date: 12/31/20 Stop Date: 02/20/21 Status: Ordered Gonal-F 1050 units subcutaneous injection = 150 International_Units, Subcutaneous Injection, Daily, # 2 kit, 5 Refills, Maintenance, :23:00 EDT, [facility], Partial [...] 02/20/21 8:26:00 EST, 12/31/20 8:22:00 EDT, Powder, [facility], Partial fill upon patient requestif [...] 11 Refills, Maintenance, 02/10/20 14:25:00 EST, [facility], 161, c... Start Date: [...] 11 Refills, Maintenance, 06/18/20 9:35:00 EDT, [facility], 161, cm, 219:18:00 EDT, Height, 106, kg, 09/11/18 13:37:00 EDT... Start Date: 06/18/20 Status: Ordered oxyCODONE 5 mg oral tablet 5 mg, 1, tablet, By Mouth, Every 6 hours, PRN, # 8 tablet, Refills 0, Tot. Refills 0, Maintenance, Pain , Mild, 01/18/21 9:22:00 EDT, Route to Pharmacy Electronically, [facility] 1967, Partial fill upon patient request if the prescription is for... Start Date: 01/18/21 Status: Ordered Pregnyl 69116 u injectable powder for injection = 1,000 [...] tablet, 5 Refills, Maintenance, 12/31/20 8:22:00 EDT, [facility], Partial fill upon patient request [...] 01/18/21 9:22:00 EDT, Route to Pharmacy Electronically, [facility] 1966, Partial fill upon patient request [...] patch, 5 Refills, Maintenance, 12/31/20 8:23:00 EDT, [facility], Partial fill upon patient request if the prescription is for a schedule II opio... Start Date: 12/31/20 Status: Ordered yes yes, See Instructions, # 2 each, Refills 5, Tot. Refills 5, Maintenance, [place] Capped Insulin Syringe for lupron administration, 12/31/20 [...]
--- OUTSIDE RECORDS SUMMARY | 2024-02-22 11:46 | XMS_ITS | Continuity of Care Document ---
Author Organization [facility] e Medicine Address [address] [facility], 4t h [address] [place] [address]- Care Team Providers Care Risk Control Product Liability Director Name Role Phone Al DIEGO, Nanci Segovia Primary Care Physician Encounter [facility] Date(s): 07/09/20 - 08/08/20 [facility] [address] [facility], 4th Floor [address] [place] [address] Allergies, Adverse Reactions, Alerts Substance [...] 1Result Comment: [facility]# [id number] PT. TOLERATED INJ. WITHOUT COMPLICATIONS....CO 2Result Comment: [facility]# [id number] PT. TOLERATED INJ. WITHOUT COMPLICATIONS...CO 3Result Comment: [04/06/2016] pt. tolerated inj. without complications...CO 4Result Comment: [04/14/2015] Measles mumps rubella titer Medications Advair Diskus 500 mcg-50 mcg inhalation powder 1, puffs, Inhalation, 2 times a day, # 1 each, Refills 12, Tot. Refills 12, Maintenance, 12/24/19 13:40:00 EDT, Route to Pharmacy Electronically, [id number], [facility], 161, cm, 06/12/19 8:56:00 EDT, Height, 106,... Start Date: 12/24/19 Status: Ordered Albuterol (Eqv-ProAir HFA) 90 mcg/inh inhalation aerosol 2 puffs, Inhalation, 4 times a day, PRN NEEDED FOR WHEEZING, # 18 Gm, 10 Refills, Maintenance, 06/07/20 14:34:00 EST, [facility], 50, INHALE 2 PUFFS BY MOUTH 4 TIMES DAILY NEEDED FORWHEEZING, 161, cm, 02/10/20 14:26:00 EST, Height, 1... Start Date: 06/07/20 Status: Ordered albuterol-ipratropium 3 mg-0.5 mg/3 ml inhalation solution 3 mL, Neb, 4 times a day, PRN shortness of breath, # 180 mL, 11 Refills, Maintenance, 06/18/20 9:36:00 EDT, Solution, [facility] 1967, 3 mL Neb [...] Maintenance, 12/24/19 13:41:00 EDT, ECCapsule, [facility], 161, cm, 06/12/19 [...] tablet, 3 Refills, Maintenance, 06/08/20 8:28:00 EST, [facility], 161, cm, 02/10/20 14:26:00 [...] Refills, Maintenance, 02/10/20 14:25:00 EST, [facility], 161, c... Start [...] Refills, Maintenance, 06/18/20 9:35:00 EDT, [facility], 161, cm, 219:18:00 [...] EDT, Route to Pharmacy Electronically, [facility] 1967, Partial fill upon [...]
--- OUTSIDE RECORDS SUMMARY | 2024-02-22 11:47 | XMS_ITS | Continuity of Care Document ---
Author Organization [facility] [facility] Address [address] [place] [address], [place] [address]- Care Team Providers Care Shipping Helper Name Role Phone Nanci Melendez MD Primary Care Physician Encounter [facility] Date(s): 02/27/22 - 03/06/22 [facility] [address] [facility], 4th [place], [place] [address] Attending Physician: Adela Sorto MD Allergies, Adverse [...] ded 1Result Comment: [facility]# [id number] PT. TOLERATED INJ. WITHOUT COMPLICATIONS....CO 2Result Comment: [facility]# [id number] PT. TOLERATED INJ. WITHOUT COMPLICATIONS...CO 3Result Comment: [04/06/2016] pt. tolerated inj. without complications...CO 4Result Comment: [04/14/2015] Measles mumps rubella titer Medications acetaminophen 325 mg oral tablet 650 mg, By Mouth, Every 4 hours, PRN, not to exceed 4000 mg/day, # 60 tablet, Refills 0, Tot. Refills 0, Maintenance, Pain , Mild, 02/08/22 8:05:00 EST, Route to Pharmacy Electronically, [facility] 1966, Partial fill upon patient request if the... Start Date: 02/08/22 Status: Ordered Albuterol (Eqv-ProAir HFA) 90 mcg/inh inhalation aerosol See Instructions, INHALE 2 PUFFS BY MOUTH 4 TIMES DAILY NEEDED FOR WHEEZING, # 9 Gm, 6 Refills, 08/17/21 9:51:00 EDT, [facility] 1967, 25, INHALE 2 PUFFS BY MOUTH 4 TIMES DAILY NEEDED FORWHEEZING, 162, cm, 08/03/21 16:59:00 EDT, Height, 1... Start Date: 08/17/21 Status: Ordered albuterol 0.083% inhalation solution 3 mL = 2.5 mg, Inhalation, Every 6 hours, PRN for wheezing, # 100 each, 5 Refills, Maintenance, 08/17/21 9:51:00 EDT, Solution, [facility] 1966, replaces previous Rx [...] once daily, # 90 capsule, 1 Refills, [facility], 162, cm, 09/16/21 15:34:00 EDT, Height, 107.4, kg, 08/20/21 8:43:00 EDT, Dry Weight Start Date: 09/23/21 Status: Ordered dicloxacillin 500 mg oral capsule 1 capsule = 500 mg, By Mouth, Every 6 hours, for 10 days, # 40 capsule, 0 Refills, Acute 03/11/22 15:57:00 EST, 03/01/22 15:57:00 EST, Capsule, [facility] 1966, Partial fill upon patient request if the prescription is for a schedule II opioid dr... Start Date: 03/01/22 Stop Date: 03/11/22 Status: Ordered Diflucan 150 mg oral tablet 1 tablet = 150 mg, By Mouth, Once, # 1 tablet, 0 Refills, Soft Stop, 03/01/22 15:59:00 EST, Tablet,[facility], Partial fill upon [...] tablet, 11 Refills, Maintenance, 08/18/21 16:40:00EDT, Tablet, [facility] 1966, Partial fill [...] 60 each, Refills 5, Tot. Refills 5, 05/18/22 9:51:00 EDT, Route to Pharmacy Electronically, [id number], [facility] 1967, 162, cm, 08/03/21 16:59:00 EDT, Height, 110, kg, 08/03/21 1... Start Date: 08/17/21 Status: Ordered ibuprofen 800 mg oral tablet 800 mg, 1, tablet, By Mouth, Every 8 hours, PRN, not to exceed 3200 mg/day with food or milk, # 40 tablet, Refills 0, Tot. Refills 0, Maintenance, Pain , Moderate, 02/08/22 8:05:00 EST, Route to Pharmacy Electronically, [facility] 1967, Partial... Start Date: [...] oldest [Reference Range]: 1 Height 163 cm (02/27/22 9:06 AM) Social History Social History Type Response Smoking Status Never smoker; Tobacc o user in household: No entered on: 07/02/15 Sex Patient Care team information Care Team Personnel Name: Nanci Melendez MD Position: [facility] Primary Care Physician Member Role: PCP Address: Address: [address] [place] [address]- Care Team Related Persons Name: SEAN RITCHIE Address: [address] Address: [address] [place] [address] [place] Name: DERRELL RITCHIE Address: [address] [address] Name: DERRELL RITCHIE Address: [address] [address] Name: DERRELL RITCHIE Address: [address] [address] Name: SHEBA CANO Address: home [address] [place] [address] Name: DAYANNA CANO Address: home [address] [place] [address]
--- OUTSIDE RECORDS SUMMARY | 2024-02-22 11:47 | XMS_ITS | Continuity of Care Document ---
Author Organization [facility] Address [address] [place] [address]- Care Team Providers Care Java Application Developer Name Role Phone Nanci Melendez MD Primary Care Physician Encounter [facility] Date(s): 10/24/19 - 11/23/19 [facility] [place] [facility] [address] [place] [address]- [facility] Allergies, Adverse Reactions, Alerts [...] Vaccine 11/21/89 Recor ded 1Result Comment: [facility]# [id number] PT. TOLERATED INJ. WITHOUT COMPLICATIONS....CO 2Result Comment: [facility]# [id number] PT. TOLERATED INJ. WITHOUT COMPLICATIONS...CO 3Result Comment: [04/06/2016] pt. tolerated inj. without complications...CO 4Result Comment: [04/14/2015] Measles mumps rubella titer Medications Advair Diskus 500 mcg-50 mcg inhalation powder 1, puffs, Inhalation, 2 times a day, # 60 Doses, Refills 12, Tot. Refills 12, Maintenance, 06/05/1910:25:22 EST, Route to Pharmacy Electronically, [id number], [facility] 1966 Start Date: 06/05/18 Status: Ordered albuterol 0.083% inhalation solution 3 mL = 2.5 mg, Inhalation, Every 6 hours, PRN for wheezing, # 60 each, 11 Refills, Maintenance, 06/20/19 9:26:00 EDT, Solution, [facility] 1966, 161, cm, 06/12/19 8:56:00 [...] Maintenance, 06/12/19 9:48:00 EDT, EC Capsule, [facility] 1966, 161, cm, 06/12/19 8:56:00 EDT, Height, 106, kg, 09/11/18 13:37:00 EDT, Dry Weight Start Date: 06/12/19 Status: Ordered diclofenac sodium 75 mg oral delayed release tablet 1 tablet = 75 mg, By Mouth, 2 times a day, PRN for pain, TAKE WITH FOOD, # 28 tablet, 0 Refills, Maintenance, 11/10/19 9:12:00 EDT, Tablet, [facility] 1967, 161, cm, 06/12/19 8:56:00 [...] DAYS, # 15 each, 5 Refills, Maintenance, [facility] 1967, 161, cm, 01/20/19 11:38:00 [...] 15:55:00 EST, Aerosol, Route to Pharmacy Electronically, [id number], [facility] 1967, 161, cm, 01/20/19 11:38:00 [...] 9:12:00 EDT, 11/10/19 9:12:00 EDT, ER Tablet, [facility] 1967, DIPSENSE EQUIVALENT THAT IS ON [...]
--- OUTSIDE RECORDS SUMMARY | 2024-02-22 11:47 | XMS_ITS | Continuity of Care Document ---
Author Organization [facility] e Medicine Address [address] [facility], 4t [address] [place] [address]- Care Team Providers Care Packer Sausage And Wiener Name Role Phone Al DIEGO, Nanci Segovia Primary Care Physician Encounter [facility] Date(s): 09/10/20 - 10/10/20 [facility] Rep[facility] Medicine [address] [place] [address], 4th [address] [place] [address] Attending Physician: Marely Fu Admitting Physician: AdmtrMarely Referring Physician: Admtr, Ar8 [...] [facility]# [id number] PT. TOLERATED INJ. WITHOUT COMPLICATIONS....CO 2Result Comment: [facility]# [id number] PT. TOLERATED INJ. WITHOUT COMPLICATIONS...CO 3Result Comment: [04/06/2016] pt. tolerated inj. without complications...CO 4Result Comment: [04/14/2015] Measles mumps rubella titer Medications Advair Diskus 500 mcg-50 mcg inhalation powder 1, puffs, Inhalation, 2 times a day, # 1 each, Refills 12, Tot. Refills 12, Maintenance, 12/24/19 13:40:00 EDT, Route to Pharmacy Electronically, [id number], [facility], 161, cm, 06/12/19 [...] pack/packet, 3 Refills, Maintenance, 09/10/20 10:08:00 EDT, [facility], Partial [...] 3 Refills, Maintenance, 12/24/19 13:41:00 EDT, ECCapsule, [facility] 1967, 161, cm, 06/12/19 [...] [facility], 161, cm, :18:00 EDT, [...] 07/09/20 16:28:00 EDT, Route to Pharmacy Electronically, [facility] [...]
--- OUTSIDE RECORDS SUMMARY | 2024-02-22 11:47 | XMS_ITS | Continuity of Care Document ---
Author Organization [facility] Address [address] [place] [address]- Care Team Providers Care Search Analyst Name Role Phone Al DIEGO, Nanci Segovia Primary Care Physician Encounter [facility] Date(s): 03/12/23 - 04/11/[address] [facility] [address] [place] [address]- Allergies, Adverse Reactions, Alerts Substance Reaction Severity [...] Comment: [facility]# [id number] PT. TOLERATED INJ. WITHOUT COMPLICATIONS....CO 2Result Comment: [facility]# [id number] PT. TOLERATED INJ. WITHOUT COMPLICATIONS...CO 3Result Comment: [04/06/2016] pt. tolerated inj. without complications...CO 4Result Comment: [04/14/2015] Measles mumps rubella titer Medications acetaminophen 325 mg oral tablet 650 mg, By Mouth, Every 4 hours, PRN, not to exceed 4000 mg/day, # 60 tablet, Refills 0, Tot. Refills 0, Maintenance, Pain , Mild, 02/08/22 8:05:00 EST, Route to Pharmacy Electronically, [facility] 1966, Partial fill upon patient request if the... Start Date: 02/08/22 Status: Ordered Albuterol (Eqv-ProAir HFA) 90 mcg/inh inhalation aerosol See Instructions, INHALE 2 PUFFS BY MOUTH 4 TIMES DAILY NEEDED FOR WHEEZING, # 9 Gm, 6 Refills, 08/17/21 9:51:00 EDT, [facility] 1967, 25, INHALE 2 PUFFS [...] mL, 0 Refills, Maintenance, 03/17/22 15:45:00 EST, [facility], Partial fill upon patient request if the prescription is for a schedule II opioid drug., 163, cm, 03/17/22... Start Date: 03/17/22 Stop Date: 03/31/22 Status: Ordered Dexilant 60 mg oral delayed release capsule See Instructions, Take 1 capsule by mouth once daily, # 90 capsule, 0 Refills, 03/14/22 14:26:00 EST, [facility], 163, cm, 02/27/22 9:06:00 EST, Height, 128.2, kg, 02/05/22 12:22:00 EST, Dry Weight Start Date: 03/14/22 Status: Ordered Diflucan 150 mg oral tablet 1 tablet = 150 mg, By Mouth, Once, # 1 tablet, 0 Refills, Soft Stop, 03/01/22 15:59:00 EST, Tablet,[facility], Partial fill upon patient request [...] 11 Refills, Maintenance, 08/18/21 16:40:00EDT, Tablet, [facility] 1966, Partial fill upon [...] 03/12/23 11:30:00 EST, Route to Pharmacy Electronically, [id number], [facility][id number], 163, cm, 03/02/23 13:11:00 EST, Height, 128.2, kg, 02/05/22 1... Start Date: 03/12/23 Status: Ordered ibuprofen 800 mg oral tablet 800 mg, 1, tablet, By Mouth, Every 8 hours, PRN, not to exceed 3200 mg/day with food or milk, # 40 tablet, Refills 0, Tot. Refills 0, Maintenance, Pain , Moderate, 02/08/22 8:05:00 EST, Route to Pharmacy Electronically, [facility] 1967, Partial... Start Date: 02/08/22 Status: Ordered [...] tablet, 5 Refills, Maintenance, 08/16/22 9:41:00 EDT, [id number], 163, cm, 05/01/22 14:15:00 EST, Height, 128.2, kg, 02/05/22 12:22:00 EST, Dry Weight Start Date: 08/16/22 Status: Ordered ondansetron 4 mg oral tablet See Instructions, TAKE 1 TABLET BY MOUTH EVERY 8 HOURS NEEDED FOR NAUSEA AND VOMITING FOR 5 DAYS, # 15 each, 11 Refills, Maintenance, 06/19/22 15:15:00 EDT, [facility]/pharmacy #[id number], 163, cm, 05/01/22 14:15:00 EST, [...] Team Personnel Name: Adela Sorto MD Position: [facility] MERCHANDISING EXECUTION MANAGER MD Member Role: Lifetime MERCHANDISING EXECUTION MANAGER Physician Address: Address: [address] [place] [address], [address] [facility] [place] [address]- Name: Nanci Melendez MD Position: [facility] Physician - Primary Care Member Role: PCP Address: Address: [address] [place] [address]- [place] Care Team Related Persons Name: SEAN RITCHIE Address: [address] Address: [address] [place] [address] Name: DERRELL RITCHIE Address: [address] [facility] [address] [place] [address] Name: DERRELL RITCHIE Address: home [address] [facility] [address] [place] [address] Name: RITCHIE DERRELL Address: home [address] [facility] [address] [place] [address] Name: SHEBA CANO Address: home [address] [place] [address] Name: DAYANNA CANO Address: [address] [place] [address]
--- OUTSIDE RECORDS SUMMARY | 2024-02-22 11:47 | XMS_ITS | Continuity of Care Document ---
Author Organization [facility] Address [address] [facility], 4t [address] Floor [address] [place] [address]- Care Team Providers Care Inpatient Pharmacist Name Role Phone Nanci Melendez MD Primary Care Physician [place] [facility] [place] 05/17/20 - 05/24/20 [facility] [address] [facility], 4th [address] [place] [address] Attending Physician: Not on Staff, Attending [...] 1Result Comment: [facility]# [id number] PT. TOLERATED INJ. WITHOUT COMPLICATIONS....CO 2Result Comment: [facility]# [id number] PT. TOLERATED INJ. WITHOUT COMPLICATIONS...CO 3Result Comment: [04/06/2016] pt. tolerated inj. without complications...CO 4Result Comment: [04/14/2015] Measles mumps rubella titer Medications Advair Diskus 500 mcg-50 mcg inhalation powder 1, puffs, Inhalation, 2 times a day, # 1 each, Refills 12, Tot. Refills 12, Maintenance, 12/24/19 13:40:00 EDT, Route to Pharmacy Electronically, [id number], [facility], 161, cm, 06/12/19 8:56:00 EDT, Height, 106,... Start Date: 12/24/19 Status: Ordered albuterol 0.083% inhalation solution 3 mL = 2.5 mg, Inhalation, Every 6 hours, PRN for wheezing, # 60 each, 11 Refills, Maintenance, 12/24/19 13:40:00 EDT, Solution, [facility], 161, cm, 06/12/19 [...] 3 Refills, Maintenance, 12/24/19 13:41:00 EDT, ECCapsule, [facility] 1967, 161, cm, 06/12/19 8:56:00 EDT, Height, 106, kg, 09/11/18 13:37:00 EDT, Dry Weight Start Date: 12/24/19 Status: Ordered diclofenac sodium 75 mg oral delayed release tablet 1 tablet = 75 mg, By Mouth, 2 times a day, PRN for pain, TAKE WITH FOOD, # 28 tablet, 1 Refills, Maintenance, 12/16/19 9:22:00 EDT, Tablet, [facility], 161, cm, 06/12/19 [...] tablet, 3 Refills, Maintenance, 02/09/20 17:27:00 EST, [facility], 161, cm, 06/12/19 [...] tablet, 11 Refills, Maintenance, 02/10/20 14:25:00 EST, [facility], 161, c... Start [...] each, 5 Refills, Maintenance, 12/24/19 13:58:00 EDT, [facility], 161, cm, 208:56:00 [...] 13:40:00 EDT, Inhaler, Route to Pharmacy Electronically, [id number],[facility], 161, cm, 06/12/19 8:56:00 ED... Start Date: 12/24/19 Status: Ordered ProAir HFA 90 mcg/inh inhalation aerosol with adapter 2, puffs, Inhalation, 4 times a day, PRN, # 2 each, Refills 5, Tot. Refills 5, Maintenance, 05/19/19 15:55:00 EST, Aerosol, Route to Pharmacy Electronically, [id number], [facility], 161, cm, 01/20/19 [...]
--- OUTSIDE RECORDS SUMMARY | 2024-02-22 11:47 | XMS_ITS | Continuity of Care Document ---
Author Organization [facility] e Medicine Address [address] [place] [id number]- Care Team Providers Care Sandstone Splitter Name Role Phone Nanci Melendez MD Primary Care Physician Encounter [facility] Date(s): 08/06/20 - 08/13/20 [facility] Reproductive Medicine [address], [address] [place] [id number] Attending Physician: Not on [...] ded 1Result Comment: [facility]# [id number] PT. TOLERATED INJ. WITHOUT COMPLICATIONS....CO 2Result Comment: [facility]# [id number] PT. TOLERATED INJ. WITHOUT COMPLICATIONS...CO 3Result Comment: [04/06/2016] pt. tolerated inj. without complications...CO 4Result Comment: [04/14/2015] Measles mumps rubella titer Medications Advair Diskus 500 mcg-50 mcg inhalation powder 1, puffs, Inhalation, 2 times a day, # 1 each, Refills 12, Tot. Refills 12, Maintenance, 12/24/19 13:40:00 EDT, Route to Pharmacy Electronically, [id number], [facility], 161, cm, 06/12/19 8:56:00 EDT, Height, 106,... Start Date: 12/24/19 Status: Ordered Albuterol (Eqv-ProAir HFA) 90 mcg/inh inhalation aerosol 2 puffs, Inhalation, 4 times a day, PRN NEEDED FOR WHEEZING, # 18 Gm, 10 Refills, Maintenance, 06/07/20 14:34:00 EST, [facility], 50, INHALE 2 PUFFS BY MOUTH 4 TIMES DAILY NEEDED FORWHEEZING, 161, cm, 02/10/20 14:26:00 EST, Height, 1... Start Date: 06/07/20 Status: Ordered albuterol-ipratropium 3 mg-0.5 mg/3 ml inhalation solution 3 mL, Neb, 4 times a day, PRN shortness of breath, # 180 mL, 11 Refills, Maintenance, 06/18/20 9:36:00 EDT, Solution, [facility], 3 mL Neb [...] Refills, Maintenance, 12/24/19 13:41:00 EDT, ECCapsule, [facility], 161, cm, 06/12/19 [...] tablet, 3 Refills, Maintenance, 06/08/20 8:28:00 EST, [facility], 161, cm, 02/10/20 [...] 11 Refills, Maintenance, 02/10/20 14:25:00 EST, [facility], 161, c... Start [...] 11 Refills, Maintenance, 06/18/20 9:35:00 EDT, [facility], 161, cm, 219:18:00 [...] 07/09/20 16:28:00 EDT, Route to Pharmacy Electronically, [facility], Partial [...]
--- OUTSIDE RECORDS SUMMARY | 2024-02-22 11:47 | XMS_ITS | Continuity of Care Document ---
Author Organization [facility] Address [address] [place] [address]- Care Team Providers Care Balancing Machine Operator Name Role Phone Al DIEGO, Nanci Segovia Primary Care Physician Encounter [facility] Date(s): 12/23/20 - 01/22/21 [facility] [address] [place] [address]- Allergies, Adverse Reactions, Alerts Substance Reaction Severity [...] Comment: [facility]# [id number] PT. TOLERATED INJ. WITHOUT COMPLICATIONS....CO 2Result Comment: [facility]# [id number] PT. TOLERATED INJ. WITHOUT COMPLICATIONS...CO 3Result Comment: [...] 12/24/19 13:40:00 EDT, Route to Pharmacy Electronically, [id number], [facility], 161, [...] tablet, 5 Refills, Maintenance, 12/31/20 8:23:00 EDT, [facility], Partial fill upon [...] 02/20/21 8:26:00 EST, 12/31/20 8:23:00 EDT, Solution, [facility], Partial fill upon patient request if theprescription is for a schedule II opioid drug., 161... Start Date: 12/31/20 Stop Date: 02/20/21 Status: Ordered Gonal-F 1050 units subcutaneous injection = 150 International_Units, Subcutaneous Injection, Daily, # 2 kit, 5 Refills, Maintenance, 218:23:00 EDT, [facility], Partial fill upon [...] 02/20/21 8:26:00 EST, 12/31/20 8:22:00 EDT, Powder, [facility], Partial fill upon patient requestif [...] for... Start Date: 01/18/21 Status: Ordered Pregnyl 02705 u injectable powder for injection = 1,000 units, Intramuscular, Once, For use as trigger shot. Use 3 mL of diluent to reconstitute powder. Draw and administer 0.3 mL of reconsituted pregnyl for total dose of 1000 units., # 1 kit, 5 Refills, Soft Stop, 12/31/20 8:24:00 EDT, [facility] Sp... Start Date: 12/31/20 Status: Ordered Multivitamins By Mouth, Daily, 0 Refills, Maintenance, 06/05/18 11:27:06 EST Start Date: 06/05/18 Status: Ordered Prometrium 200 mg oral capsule See Instructions, vaginally 3 times a day, # 90 tablet, 5 Refills, Maintenance, 12/31/20 8:22:00 EDT, [facility], Partial fill upon [...] patch, 5 Refills, Maintenance, 12/31/20 8:23:00 EDT, [facility], Partial fill upon patient request if the prescription is for a schedule II opio... Start Date: 12/31/20 Status: Ordered yes yes, See Instructions, # 2 each, Refills 5, Tot. Refills 5, Maintenance, [place] Capped Insulin Syringe for lupron administration, 12/31/20 [...]
--- OUTSIDE RECORDS SUMMARY | 2024-02-22 11:47 | XMS_ITS | Continuity of Care Document ---
Author Organization [facility] e Medicine Address Unknown Care Team Providers Care E Marketing Specialist Name Role Phone Nanci Melendez MD Primary Care Physician Encounter [facility] Date(s): 01/01/21 - 01/08/21 [facility] Reproductive Medicine Attending Physician: Cheryl Beauchamp MD [...] 1Result Comment: [facility]# [id number] PT. TOLERATED INJ. WITHOUT COMPLICATIONS....CO 2Result Comment: [facility]# [id number] PT. TOLERATED INJ. WITHOUT COMPLICATIONS...CO 3Result Comment: [...] 12/24/19 13:40:00 EDT, Route to Pharmacy Electronically, [id number], [facility], 161, cm, 06/12/19 8:56:00 EDT, Height, 106,... Start Date: 12/24/19 Status: Ordered Albuterol (Eqv-ProAir HFA) 90 mcg/inh inhalation aerosol 2 puffs, Inhalation, 4 times a day, PRN NEEDED FOR WHEEZING, # 18 Gm, 10 Refills, Maintenance, 06/07/20 14:34:00 EST, [facility], 50, INHALE 2 PUFFS [...] 3 Refills, Maintenance, 12/24/19 13:41:00 EDT, ECCapsule, [facility], 161, cm, 06/12/19 8:56:00 EDT, Height, 106, kg, 09/11/18 13:37:00 EDT, Dry Weight Start Date: 12/24/19 Status: Ordered doxycycline hyclate 100 mg oral tablet 1 tablet = 100 mg, By Mouth, 2 times a day, # 28 tablet, 5 Refills, Maintenance, 12/31/20 8:23:00 EDT, [facility], Partial fill upon [...] 02/20/21 8:26:00 EST, 12/31/20 8:23:00 EDT, Solution, [facility], Partial fill upon patient request if theprescription is for a schedule II opioid drug., 161... Start Date: 12/31/20 Stop Date: 02/20/21 Status: Ordered Gonal-F 1050 units subcutaneous injection = 150 International_Units, Subcutaneous Injection, Daily, # 2 kit, 5 Refills, Maintenance, 218:23:00 EDT, [facility], Partial fill upon patient request [...] 02/20/21 8:26:00 EST, 12/31/20 8:22:00 EDT, Powder, [facility], Partial fill upon patient requestif [...] tablet, 11 Refills, Maintenance, 02/10/20 14:25:00 EST, [facility], 161, c... Start [...] EDT... Start Date: 06/18/20 Status: Ordered Pregnyl 93717 u injectable powder for injection = 1,000 units, Intramuscular, Once, For use as trigger shot. Use 3 mL of diluent to reconstitute powder. Draw and administer 0.3 mL of reconsituted pregnyl for total dose of 1000 units., # 1 kit, 5 Refills, Soft Stop, 12/31/20 8:24:00 EDT, [facility] Sp... Start Date: 12/31/20 Status: Ordered Multivitamins By Mouth, Daily, 0 Refills, Maintenance, 06/05/18 11:27:06 EST Start Date: 06/05/18 Status: Ordered Prometrium 200 mg oral capsule See Instructions, vaginally 3 times a day, # 90 tablet, 5 Refills, Maintenance, 12/31/20 8:22:00 EDT, [facility], Partial fill upon patient request [...] patch, 5 Refills, Maintenance, 12/31/20 8:23:00 EDT, [facility], Partial fill upon patient request if the prescription is for a schedule II opio... Start Date: 12/31/20 Status: Ordered yes yes, See Instructions, # 2 each, Refills 5, Tot. Refills 5, Maintenance, [place] Capped Insulin Syringe for lupron administration, 12/31/20 [...] oldest [Reference Range]: 1 Height 163 cm (01/01/21 10:10 AM) Weight 107.3 kg (01/01/21 10:10 AM) Body Mass Index [18.5-24.99] 40.39 *>HHI* (01/01/21 10:10 AM) Blood Pressure [90-138/55-84 mm Hg] 121/ 65mm Hg (01/01/21 10:10 AM) Blood pressure sites Arm, right (01/01/21 10:10 AM) Weight Obtained Via Standing scale (01/01/21 10:10 AM) Social History Social History Type Response Smoking Status Never smoker; Tobacc o user in household: No entered on: 07/02/15 Sex
--- OUTSIDE RECORDS SUMMARY | 2024-02-22 11:47 | XMS_ITS | Continuity of Care Document ---
Author Organization [facility] Address [address] [place] [address]- Care Team Providers Care Glaze Maker Name Role Phone Al DIEGO, Nanci Segovia Primary Care Physician Encounter [facility] Date(s): 12/21/20 - 01/20/21 [facility] [address] [place] [address]- Allergies, Adverse Reactions, Alerts Substance Reaction Severity [...] 1Result Comment: [facility]# [id number] PT. TOLERATED INJ. WITHOUT COMPLICATIONS....CO 2Result Comment: [facility]# [id number] PT. TOLERATED INJ. WITHOUT COMPLICATIONS...CO 3Result Comment: [...] 12/24/19 13:40:00 EDT, Route to Pharmacy Electronically, [id number], [facility] 1967, 161, cm, 06/12/19 8:56:00 EDT, Height, 106,... Start Date: 12/24/19 Status: Ordered Albuterol (Eqv-ProAir HFA) 90 mcg/inh inhalation aerosol 2 puffs, Inhalation, 4 times a day, PRN NEEDED FOR WHEEZING, # 18 Gm, 10 Refills, Maintenance, 06/07/20 14:34:00 EST, [facility] 1967, 50, INHALE 2 PUFFS BY MOUTH 4 TIMES DAILY NEEDED FORWHEEZING, 161, cm, 02/10/20 14:26:00 EST, Height, 1... Start Date: 06/07/20 Status: Ordered albuterol-ipratropium 3 mg-0.5 mg/3 ml inhalation solution 3 mL, Neb, 4 times a day, PRN shortness of breath, # 180 mL, 11 Refills, Maintenance, 06/18/20 9:36:00 EDT, Solution, [facility] 1969, 3 mL Neb 4 times a day,PRN:shortness of breath, 161, cm, 06/18/20 9:18:00 EDT, Height, 106, kg, 09/11/18 13:37... Start Date: 06/18/20 Status: Ordered Apri 0.15 mg-0.03 mg oral tablet 1 tablet, By Mouth, Daily, start first tablet today, # 1 pack/packet, 3 Refills, Maintenance, 12/09/20 13:48:00 EDT, [facility], Partial fill upon patient [...] 3 Refills, Maintenance, 12/24/19 13:41:00 EDT, ECCapsule, [facility] 1969, 161, cm, 06/12/19 8:56:00 EDT, Height, 106, kg, 09/11/18 13:37:00 EDT, Dry Weight Start Date: 12/24/19 Status: Ordered doxycycline hyclate 100 mg oral tablet 1 tablet = 100 mg, By Mouth, 2 times a day, # 28 tablet, 5 Refills, Maintenance, 12/31/20 8:23:00 EDT, [facility], Partial fill upon patient [...] 02/20/21 8:26:00 EST, 12/31/20 8:23:00 EDT, Solution, [facility], Partial fill upon patient request if theprescription is for a schedule II opioid drug., 161... Start Date: 12/31/20 Stop Date: 02/20/21 Status: Ordered Gonal-F 1050 units subcutaneous injection = 150 International_Units, Subcutaneous Injection, Daily, # 2 kit, 5 Refills, Maintenance, 218:23:00 EDT, [facility], Partial fill upon patient [...] 02/20/21 8:26:00 EST, 12/31/20 8:22:00 EDT, Powder, [facility], Partial fill upon patient requestif [...] tablet, 11 Refills, Maintenance, 02/10/20 14:25:00 EST, [facility] 1969, 161, c... Start Date: [...] each, 11 Refills, Maintenance, 06/18/20 9:35:00 EDT, [facility] 1969, 161, cm, 219:18:00 EDT, Height, 106, kg, 09/11/18 13:37:00 EDT... Start Date: 06/18/20 Status: Ordered oxyCODONE 5 mg oral tablet 5 mg, 1, tablet, By Mouth, Every 6 hours, PRN, # 8 tablet, Refills 0, Tot. Refills 0, Maintenance, Pain , Mild, 01/18/21 9:22:00 EDT, Route to Pharmacy Electronically, [facility] 1969, Partial fill upon patient request if the prescription is for... Start Date: 01/18/21 Status: Ordered Pregnyl 04479 u injectable powder for injection = 1,000 units, Intramuscular, Once, For use as trigger shot. Use 3 mL of diluent to reconstitute powder. Draw and administer 0.3 mL of reconsituted pregnyl for total dose of 1000 units., # 1 kit, 5 Refills, Soft Stop, 12/31/20 8:24:00 EDT, [facility]... Start Date: 12/31/20 Status: Ordered Multivitamins By Mouth, Daily, 0 Refills, Maintenance, 06/05/18 11:27:06 EST Start Date: 06/05/18 Status: Ordered Prometrium 200 mg oral capsule See Instructions, vaginally 3 times a day, # 90 tablet, 5 Refills, Maintenance, 12/31/20 8:22:00 EDT, [facility], Partial fill upon patient [...] 01/18/21 9:22:00 EDT, Route to Pharmacy Electronically, [facility], Partial fill upon patient [...] patch, 5 Refills, Maintenance, 12/31/20 8:23:00 EDT, [facility], Partial fill upon patient request if the prescription is for a schedule II opio... Start Date: 12/31/20 Status: Ordered yes yes, See Instructions, # 2 each, Refills 5, Tot. Refills 5, Maintenance, [place] Capped Insulin Syringe for lupron administration, 12/31/20 [...]
--- OUTSIDE RECORDS SUMMARY | 2024-02-22 11:47 | XMS_ITS | Continuity of Care Document ---
Author Organization [facility] Address Unknown Care Team Providers Care Detail Supervisor Name Role Phone Al DIEGO, Nanci Segovia Primary Care Physician Encounter [facility] Date(s): 11/17/20 - 11/24/20 [facility] Reproductive Medicine Attending Physician: Jalyn Cabrera MD Referring Physician: Cheryl Beauchamp MD Allergies, [...] 1Result Comment: [facility]# [id number] PT. TOLERATED INJ. WITHOUT COMPLICATIONS....CO 2Result Comment: [facility]# [id number] PT. TOLERATED INJ. WITHOUT COMPLICATIONS...CO 3Result Comment: [04/06/2016] pt. tolerated inj. without complications...CO 4Result Comment: [04/14/2015] Measles mumps rubella titer Medications Advair Diskus 500 mcg-50 mcg inhalation powder 1, puffs, Inhalation, 2 times a day, # 1 each, Refills 12, Tot. Refills 12, Maintenance, 12/24/19 13:40:00 EDT, Route to Pharmacy Electronically, [id number], [facility], 161, cm, 06/12/19 8:56:00 EDT, Height, 106,... Start Date: 12/24/19 Status: Ordered Albuterol (Eqv-ProAir HFA) 90 mcg/inh inhalation aerosol 2 puffs, Inhalation, 4 times a day, PRN NEEDED FOR WHEEZING, # 18 Gm, 10 Refills, Maintenance, 06/07/20 14:34:00 EST, [facility], 50, INHALE 2 PUFFS BY MOUTH 4 TIMES DAILY NEEDED FORWHEEZING, 161, cm, 02/10/20 14:26:00 EST, Height, 1... Start Date: 06/07/20 Status: Ordered albuterol-ipratropium 3 mg-0.5 mg/3 ml inhalation solution 3 mL, Neb, 4 times a day, PRN shortness of breath, # 180 mL, 11 Refills, Maintenance, 06/18/20 9:36:00 EDT, Solution, [facility], 3 mL Neb 4 times a day,PRN:shortness of breath, 161, cm, 06/18/20 9:18:00 EDT, Height, 106, kg, 09/11/18 13:37... Start Date: 06/18/20 Status: Ordered Apri 0.15 mg-0.03 mg oral tablet 1 tablet, By Mouth, Daily, start first tablet today, # 1 pack/packet, 3 Refills, Maintenance, 09/10/20 10:08:00 EDT, [facility], Partial fill upon patient [...] 3 Refills, Maintenance, 12/24/19 13:41:00 EDT, ECCapsule, [facility], 161, cm, 06/12/19 8:56:00 [...] tablet, 11 Refills, Maintenance, 02/10/20 14:25:00 EST, [facility], 161, c... Start Date: [...] each, 11 Refills, Maintenance, 06/18/20 9:35:00 EDT, [facility], 161, cm, 219:18:00 EDT, [...]
--- OUTSIDE RECORDS SUMMARY | 2024-02-22 11:47 | XMS_ITS | Continuity of Care Document ---
Author Organization [facility] e Medicine Address [address] [place] [address]- Care Team Providers Care Brush Loader And Handle Attacher Name Role Phone Al DIEGO, Nanci Segovia Primary Care Physician Encounter [facility] Date(s): 07/15/20 - 08/14/20 [facility] Reproductive Medicine [address] [place] [id number] Allergies, Adverse Reactions, Alerts [...] [facility]# [id number] PT. TOLERATED INJ. WITHOUT COMPLICATIONS....CO 2Result Comment: [facility]# [id number] PT. TOLERATED INJ. WITHOUT COMPLICATIONS...CO 3Result Comment: [04/06/2016] pt. tolerated inj. without complications...CO 4Result Comment: [04/14/2015] Measles mumps rubella titer Medications Advair Diskus 500 mcg-50 mcg inhalation powder 1, puffs, Inhalation, 2 times a day, # 1 each, Refills 12, Tot. Refills 12, Maintenance, 12/24/19 13:40:00 EDT, Route to Pharmacy Electronically, [id number], [facility] 1967, 161, cm, 06/12/19 8:56:00 EDT, Height, 106,... Start Date: 12/24/19 Status: Ordered Albuterol (Eqv-ProAir HFA) 90 mcg/inh inhalation aerosol 2 puffs, Inhalation, 4 times a day, PRN NEEDED FOR WHEEZING, # 18 Gm, 10 Refills, Maintenance, 06/07/20 14:34:00 EST, [facility] 1967, 50, INHALE 2 PUFFS BY MOUTH 4 TIMES DAILY NEEDED FORWHEEZING, 161, cm, 02/10/20 14:26:00 EST, Height, 1... Start Date: 06/07/20 Status: Ordered albuterol-ipratropium 3 mg-0.5 mg/3 ml inhalation solution 3 mL, Neb, 4 times a day, PRN shortness of breath, # 180 mL, 11 Refills, Maintenance, 06/18/20 9:36:00 EDT, Solution, [facility], 3 mL Neb [...] 3 Refills, Maintenance, 12/24/19 13:41:00 EDT, ECCapsule, [facility] 1967, 161, cm, 06/12/19 [...] tablet, 3 Refills, Maintenance, 06/08/20 8:28:00 EST, [facility] 1969, 161, cm, 02/10/20 [...] tablet, 11 Refills, Maintenance, 02/10/20 14:25:00 EST, [facility], 161, c... Start [...] each, 11 Refills, Maintenance, 06/18/20 9:35:00 EDT, [facility], 161, cm, 219:18:00 [...] 07/09/20 16:28:00 EDT, Route to Pharmacy Electronically, [facility], Partial fill upon [...]
--- OUTSIDE RECORDS SUMMARY | 2024-02-22 11:47 | XMS_ITS | Continuity of Care Document ---
Author Organization [facility] e [facility] Address Unknown Care Team Providers Care Turpentine Distiller Name Role Phone Nanci Melendez MD Primary Care Physician Encounter [facility] Date(s): 02/01/21 - 03/03/21 [facility] Reproductive Medicine Allergies, Adverse Reactions, [...] ded 1Result Comment: [facility]# [id number] PT. TOLERATED INJ. WITHOUT COMPLICATIONS....CO 2Result Comment: [facility]# [id number] PT. TOLERATED INJ. WITHOUT COMPLICATIONS...CO 3Result Comment: [...] Gm, 10 Refills, Maintenance, 06/07/20 14:34:00 EST, [email or web address], 50, INHALE 2 PUFFS BY MOUTH 4 TIMES DAILY NEEDED FORWHEEZING, 161, cm, 02/10/20 14:26:00 EST, Height, 1... Start Date: 06/07/20 Status: Ordered albuterol-ipratropium 3 mg-0.5 mg/3 ml inhalation solution 3 mL, Neb, 4 times a day, PRN shortness of breath, # 180 mL, 11 Refills, Maintenance, 06/18/20 9:36:00 EDT, Solution, [email or web address], 3 mL Neb 4 times a day,PRN:shortness of breath, 161, cm, 06/18/20 9:18:00 EDT, Height, 106, kg, 09/11/18 13:37... Start Date: 06/18/20 Status: Ordered Apri 0.15 mg-0.03 mg oral tablet 1 tablet, By Mouth, Daily, start first tablet today, # 1 pack/packet, 3 Refills, Maintenance, 12/09/20 13:48:00 EDT, [facility], Partial fill upon [...] 0 Refills, Maintenance, 02/11/21 12:37:00 EST, ECCapsule, [facility] 1967, 163, cm, 01/01/21 10:10:00 EDT, Height Start Date: 02/11/21 Status: Ordered doxycycline hyclate 100 mg oral tablet 1 tablet = 100 mg, By Mouth, 2 times a day, # 28 tablet, 5 Refills, Maintenance, 12/31/20 8:23:00 EDT, [facility], Partial fill upon [...] each, Refills 5, Route to Pharmacy Electronically, [id number], [facility] 1967, 163, cm, 01/01/21 10:10:00 EDT, Height Start Date: 01/28/21 Status: Ordered Gonal-F 1050 units subcutaneous injection = 150 International_Units, Subcutaneous Injection, Daily, # 2 kit, 5 Refills, Maintenance, 218:23:00 EDT, [facility], Partial fill upon [...] tablet, 11 Refills, Maintenance, 02/10/20 14:25:00 EST, [facility] 1969, 161, c... Start [...] each, 11 Refills, Maintenance, 06/18/20 9:35:00 EDT, [facility] 1969, 161, cm, :18:00 EDT, Height, 106, kg, 09/11/18 13:37:00 EDT... Start Date: 06/18/20 Status: Ordered oxyCODONE 5 mg oral tablet 5 mg, 1, tablet, By Mouth, Every 6 hours, PRN, # 8 tablet, Refills 0, Tot. Refills 0, Maintenance, Pain , Mild, 01/18/21 9:22:00 EDT, Route to Pharmacy Electronically, [facility] 1967, Partial fill upon patient request if the prescription is for... Start Date: 01/18/21 Status: Ordered Pregnyl 23907 u injectable powder for injection = 1,000 units, Intramuscular, Once, For use as trigger shot. Use 3 mL of diluent to reconstitute powder. Draw and administer 0.3 mL of reconsituted pregnyl for total dose of 1000 units., # 1 kit, 5 Refills, Soft Stop, 12/31/20 8:24:00 EDT, [facility]... Start Date: 12/31/20 Status: Ordered Multivitamins By Mouth, Daily, 0 Refills, Maintenance, 06/05/18 11:27:06 EST Start Date: 06/05/18 Status: Ordered progesterone 50 mg/mL intramuscular solution 50mg/ml 1 ml (sesame oil), Intramuscular, Daily, # 30 mL, 5 Refills, Maintenance, 02/03/21 11:55:00EDT, [facility], Partial fill upon patient request if the prescription is for a schedule II opioid drug., 163, cm, 01/01/21 10:10:00 E... Start Date: 02/03/21 Status: Ordered Prometrium 200 mg oral capsule See Instructions, vaginally 3 times a day, # 90 tablet, 5 Refills, Maintenance, 12/31/20 8:22:00 EDT, [facility], Partial fill upon patient request [...] 01/18/21 9:22:00 EDT, Route to Pharmacy Electronically, [facility], Partial fill upon [...] patch, 5 Refills, Maintenance, 12/31/20 8:23:00 EDT, [facility], Partial fill upon patient request if the prescription is for a schedule II opio... Start Date: 12/31/20 Status: Ordered yes yes, See Instructions, # 2 each, Refills 5, Tot. Refills 5, Maintenance, [place] Capped Insulin Syringe for lupron administration, 12/31/20 [...]
--- OUTSIDE RECORDS SUMMARY | 2024-02-22 11:47 | XMS_ITS | Continuity of Care Document ---
Author Organization [facility] Hina [facility] Address [address] [place] [address], 4[address] [place] [address]- Care Team Providers Care Broke Worker Name Role Phone Al DIEGO, Nanci Segovia Primary Care Physician Encounter [facility] Date(s): 02/02/22 - 02/09/22 [facility] Addisonenrique SosaReveal Dat[facility] [address] [facility], 4th [place] [address]- Attending Physician: Adela Sorto MD Referring Physician: [...] Vaccine 4 09/01/09 Recorded tetanus-diphtheria toxoids (Td) 4/9/08 Recorded Meningococcal Conjugate Vaccine 03/16/06 Recorded Measles/Mumps/Rubella Virus Vaccine 08/08/99 Recor ded Measles/Mumps/Rubella Virus Vaccine 11/21/89 Recor ded 1Result Comment: [facility][NOTE 3]# [id number] PT. TOLERATED INJ. WITHOUT COMPLICATIONS....CO 2Result Comment: [facility][NOTE 3]# [id number] PT. TOLERATED INJ. WITHOUT COMPLICATIONS...CO 3Result Comment: [04/06/2016] pt. tolerated inj. without complications...CO 4Result Comment: [04/14/2015] Measles mumps rubella titer Medications acetaminophen 325 mg oral tablet 650 mg, By Mouth, Every 4 hours, PRN, not to exceed 4000 mg/day, # 60 tablet, Refills 0, Tot. Refills 0, Maintenance, Pain , Mild, 02/08/22 8:05:00 EST, [facility], Partial fill upon patient request if the... Start Date: 02/08/22 Status: Ordered Albuterol (Eqv-ProAir HFA) 90 mcg/inh inhalation aerosol See Instructions, INHALE 2 PUFFS BY MOUTH 4 TIMES DAILY NEEDED FOR WHEEZING, # 9 Gm, 6 Refills, 08/17/21 9:51:00 EDT[facility], [facility], INHALE 2 PUFFS BY MOUTH 4 TIMES DAILY NEEDED FORWHEEZING, 162, cm, 08/03/21 16:59:00 EDT, Height, 1... Start Date: 08/17/21 Status: Ordered albuterol 0.083% inhalation solution 3 mL = 2.5 mg, Inhalation, Every 6 hours, PRN for wheezing, # 100 each, 5 Refills, Maintenance, 08/17/21 9:51:00 EDT, [facility], replaces previous Rx for albuterol-ipatropium [...] once daily, # 90 capsule, 1 Refills, [facility], 162, cm, 09/16/21 [...] 08/17/21 9:51:00 EDT, Route to Pharmacy Electronically, [id number], [facility], 162, [...] Pharmacy Electronically, [facility], Partial... Start Date: [...] Care Physician Member Role: PCP Address: Address: [address] [place] [address]- Care Team Related Persons Name: RITCHIERAFA WILKES Address: [address] Address: home [address] [place] [address] Name: DERRELL RITCHIE Address: home [address] [facility] [address] [place] [address] Name: DERRELL RITCHIE Address: home [address] [facility] [address] [place] [address] Name: DERRELL RITCHIE Address: home [address] [facility] [address] [place] [address] Name: SHEBA CANO Address: home [address] [place] [address] Name: DAYANNA CANO Address: home [address] [place] [address]
--- OUTSIDE RECORDS SUMMARY | 2024-02-22 11:47 | XMS_ITS | Continuity of Care Document ---
Author Organization [facility] Hina [facility] [facility] [facility] Address [address] [place] [address], 4[address] [place] [address]- Care Team Providers Care Sign Letterer Name Role Phone Al DIEGO, Nanci Segovia Primary Care Physician [phone] Encounter [facility] Date(s): 01/04/22 - 03/11/22 [facility] [facility] [address] [facility], 4th [place] [address]- Attending Physician: Adela Sorto MD Referring Physician: [...] Recor ded 1Result Comment: [facility]# [id number] PT. TOLERATED INJ. WITHOUT COMPLICATIONS....CO 2Result Comment: [facility]# [id number] PT. TOLERATED INJ. WITHOUT COMPLICATIONS...CO 3Result Comment: [04/06/2016] pt. tolerated inj. without complications...CO 4Result Comment: [04/14/2015] Measles mumps rubella titer Medications acetaminophen 325 mg oral tablet 650 mg, By Mouth, Every 4 hours, PRN, not to exceed 4000 mg/day, # 60 tablet, Refills 0, Tot. Refills 0, Maintenance, Pain , Mild, 02/08/22 8:05:00 EST, [facility], Partial fill upon patient request if the... Start Date: 02/08/22 Status: Ordered Albuterol (Eqv-ProAir HFA) 90 mcg/inh inhalation aerosol See Instructions, INHALE 2 PUFFS BY MOUTH 4 TIMES DAILY NEEDED FOR WHEEZING, # 9 Gm, 6 Refills, 08/17/21 9:51:00 EDT[facility], [facility], INHALE 2 PUFFS BY MOUTH 4 TIMES DAILY NEEDED FORWHEEZING, 162, cm, 08/03/21 16:59:00 EDT, Height, 1... Start Date: 08/17/21 Status: Ordered albuterol 0.083% inhalation solution 3 mL = 2.5 mg, Inhalation, Every 6 hours, PRN for wheezing, # 100 each, 5 Refills, Maintenance, 08/17/21 9:51:00 EDT, [facility], replaces previous Rx for [...] daily, # 90 capsule, 1 Refills, [facility] 1967, 162, cm, 09/16/21 15:34:00 EDT, Height, 107.4, kg, 08/20/21 8:43:00 EDT, Dry Weight Start Date: 09/23/21 Status: Ordered Diflucan 150 mg oral tablet 1 tablet = 150 mg, By Mouth, Once, # 1 tablet, 0 Refills, Soft Stop, 03/01/22 15:59:00 EST, Tablet,[facility], Partial fill upon [...] 11 Refills, Maintenance, 08/18/21 16:40:00EDT, Tablet, [facility] 1966, Partial fill upon patient [...] 08/17/21 9:51:00 EDT, Route to Pharmacy Electronically, [id number], [facility] 1967, 162, cm, 08/03/21 16:59:00 EDT, Height, 110, kg, 05/04/22 1... Start Date: 08/17/21 Status: Ordered ibuprofen 800 mg oral tablet 800 mg, 1, tablet, By Mouth, Every 8 hours, PRN, not to exceed 3200 mg/day with food or milk, # 40 tablet, Refills 0, Tot. Refills 0, Maintenance, Pain , Moderate, 02/08/22 8:05:00 EST, Route to Pharmacy Electronically, [facility] 1967, Partial... Start Date: 02/08/22 [...] Team Personnel Name: Nanci Melendez MD Position: [facility] Primary Care Physician Member Role: PCP Address: Address: [address] [place] [address]- Care Team Related Persons Name: SEAN RITCHIE Address: [address] Address: home [address] [place] [address] [place] Name: DERRELL RITCHIE Address: [address] [address] Name: DERRELL RITCHIE Address: home [address] [place] [address] Name: DERRELL RITCHIE Address: [address] [address] Name: SHEBA CANO Address: home [address] [place] [address] Name: DAYANNA CANO Address: home [address] [place] [address]
--- OUTSIDE RECORDS SUMMARY | 2024-02-22 11:47 | XMS_ITS | Continuity of Care Document ---
Author Organization [facility] Address [address] [facility], 4t h Floor [address] [place] [address]- Care Team Providers Care Insurance Defense Paralegal Name Role Phone Al DIEGO, Nanci Segovia Primary Care Physician Encounter [facility] Date(s): 09/07/20 - 10/07/20 [facility] [address] [facility], 4th Floor [address] [place] [id number] Allergies, Adverse Reactions, Alerts [...] Virus Vaccine 11/21/89 Recor ded 1Result Comment: [facility]# [id number] PT. TOLERATED INJ. WITHOUT COMPLICATIONS....CO 2Result Comment: [facility]# [id number] PT. TOLERATED INJ. WITHOUT COMPLICATIONS...CO 3Result Comment: [04/06/2016] pt. tolerated inj. without complications...CO 4Result Comment: [04/14/2015] Measles mumps rubella titer Medications Advair Diskus 500 mcg-50 mcg inhalation powder 1, puffs, Inhalation, 2 times a day, # 1 each, Refills 12, Tot. Refills 12, Maintenance, 12/24/19 13:40:00 EDT, Route to Pharmacy Electronically, [id number], [facility], 161, cm, 06/12/19 8:56:00 EDT, Height, 106,... Start Date: 12/24/19 Status: Ordered Albuterol (Eqv-ProAir HFA) 90 mcg/inh inhalation aerosol 2 puffs, Inhalation, 4 times a day, PRN NEEDED FOR WHEEZING, # 18 Gm, 10 Refills, Maintenance, 06/07/20 14:34:00 EST, [facility], 50, INHALE 2 PUFFS BY MOUTH 4 TIMES DAILY NEEDED FORWHEEZING, 161, cm, 02/10/20 14:26:00 EST, Height, 1... Start Date: 06/07/20 Status: Ordered albuterol-ipratropium 3 mg-0.5 mg/3 ml inhalation solution 3 mL, Neb, 4 times a day, PRN shortness of breath, # 180 mL, 11 Refills, Maintenance, 06/18/20 9:36:00 EDT, Solution, [facility], 3 mL Neb 4 times a day,PRN:shortness of breath, 161, cm, 06/18/20 9:18:00 EDT, Height, 106, kg, 09/11/18 13:37... Start Date: 06/18/20 Status: Ordered Apri 0.15 mg-0.03 mg oral tablet 1 tablet, By Mouth, Daily, start first tablet today, # 1 pack/packet, 3 Refills, Maintenance, 09/10/20 10:08:00 EDT, [facility], Partial fill upon [...] Maintenance, 12/24/19 13:41:00 EDT, ECCapsule, [facility], 161, cm, 06/12/19 [...] Refills, Maintenance, 02/10/20 14:25:00 EST, [facility], 161, c... Start [...] Refills, Maintenance, 06/18/20 9:35:00 EDT, [facility], 161, cm, 219:18:00 [...] EDT, Route to Pharmacy Electronically, [facility], Partial fill upon [...]
--- OUTSIDE RECORDS SUMMARY | 2024-02-22 11:47 | XMS_ITS | Continuity of Care Document ---
Author Organization [facility] Address [address] [facility], 4t h Floor [address] [place] [address]- Care Team Providers Care Personal Care Aid Name Role Phone Nanci Melendez MD Primary Care Physician [phone] Encounter [facility] Date(s): 02/10/20 - 03/11/20 [facility] [address] [facility], 4th Floor [address] [place] [id number] Allergies, Adverse Reactions, Alerts Substance [...] Comment: [facility]# [id number] PT. TOLERATED INJ. WITHOUT COMPLICATIONS....CO 2Result Comment: [facility]# [id number] PT. TOLERATED INJ. WITHOUT COMPLICATIONS...CO 3Result Comment: [04/06/2016] pt. tolerated inj. without complications...CO 4Result Comment: [04/14/2015] Measles mumps rubella titer Medications Advair Diskus 500 mcg-50 mcg inhalation powder 1, puffs, Inhalation, 2 times a day, # 1 each, Refills 12, Tot. Refills 12, Maintenance, 12/24/19 13:40:00 EDT, Route to Pharmacy Electronically, [id number], [facility], 161, cm, [...] 13:40:00 EDT, Inhaler, Route to Pharmacy Electronically, [id number],[facility], 161, cm, 06/12/19 8:56:00 ED... Start Date: 12/24/19 Status: Ordered ProAir HFA 90 mcg/inh inhalation aerosol with adapter 2, puffs, Inhalation, 4 times a day, PRN, # 2 each, Refills 5, Tot. Refills 5, Maintenance, 05/19/19 15:55:00 EST, Aerosol, Route to Pharmacy Electronically, [id number], [facility], 161, cm, [...]
--- OUTSIDE RECORDS SUMMARY | 2024-02-22 11:47 | XMS_ITS | Continuity of Care Document ---
Author Organization [facility] Address [address] [facility], 4t [place] [address]- Care Team Providers Care Practice Office Associate Name Role Phone Al DIEGO, Nanci Segovia Primary Care Physician En[facility] Date(s): 12/07/21 - 01/06/22 [facility] Susanenrique [facility] [address] [facility], 4th [place] [address]- Allergies, Adverse Reactions, Alerts Substance Reaction Severity [...] Virus Vaccine 11/21/89 Recor ded 1Result Comment: [facility]# [id number] PT. TOLERATED INJ. WITHOUT COMPLICATIONS....CO 2Result Comment: [facility]# [id number] PT. TOLERATED INJ. WITHOUT COMPLICATIONS...CO 3Result Comment: [04/06/2016] pt. tolerated inj. without complications...CO 4Result Comment: [04/14/2015] Measles mumps rubella titer Medications Albuterol (Eqv-ProAir HFA) 90 mcg/inh inhalation aerosol See Instructions, INHALE 2 PUFFS BY MOUTH 4 TIMES DAILY NEEDED FOR WHEEZING, # 9 Gm, 6 Refills, 08/17/21 9:51:00 EDT, [facility], 25, INHALE 2 PUFFS BY MOUTH 4 TIMES DAILY NEEDED FORWHEEZING, 162, cm, 08/03/21 16:59:00 EDT, Height, 1... Start Date: 08/17/21 Status: Ordered albuterol 0.083% inhalation solution 3 mL = 2.5 mg, Inhalation, Every 6 hours, PRN for wheezing, # 100 each, 5 Refills, Maintenance, 08/17/21 9:51:00 EDT, Solution, [facility], replaces previous Rx for albuterol-ipatropium [...] once daily, # 90 capsule, 1 Refills[facility], 162, cm, 09/16/21 15:34:00 EDT, [...] tablet, 11 Refills, Maintenance, 08/18/21 16:40:00EDT, Tablet, [facility] 1967, Partial fill upon [...] 08/17/21 9:51:00 EDT, Route to Pharmacy Electronically, [id number], [facility], 162, cm, 08/03/21 [...] tablet, 11 Refills, Maintenance, 03/16/21 11:27:00 EST, [facility], 162, cm, 03/10/21 [...] each, 11 Refills, Maintenance, 06/18/20 9:35:00 EDT, [facility], 161, cm, :18:00 [...] Personnel Name: Nanci Melendez MD Address: Address: [address] [place] [address]
--- OUTSIDE RECORDS SUMMARY | 2024-02-22 11:47 | XMS_ITS | Continuity of Care Document ---
Author Organization [facility] Address [address] [place] [address], [address] [address]- Care Team Providers Care Shade Hanger Name Role Phone Nanci Melendez MD Primary Care Physician Encounter [facility] Date(s): 01/30/22 - 02/06/22 [facility] [address] [facility], 4th [place], [place] [address] Attending Physician: Adela Sorto MD Allergies, [...] Comment: [facility]# [id number] PT. TOLERATED INJ. WITHOUT COMPLICATIONS....CO 2Result Comment: [facility]# [id number] PT. TOLERATED INJ. WITHOUT COMPLICATIONS...CO 3Result Comment: [04/06/2016] pt. tolerated inj. without complications...CO 4Result Comment: [04/14/2015] Measles mumps rubella titer Medications Albuterol (Eqv-ProAir HFA) 90 mcg/inh inhalation aerosol See Instructions, INHALE 2 PUFFS BY MOUTH 4 TIMES DAILY NEEDED FOR WHEEZING, # 9 Gm, 6 Refills, 08/17/21 9:51:00 EDT, [facility], 25, INHALE 2 PUFFS BY MOUTH 4 TIMES DAILY NEEDED FORWHEEZING, 162, cm, 08/03/21 16:59:00 EDT, Height, 1... Start Date: 08/17/21 Status: Ordered albuterol 0.083% inhalation solution 3 mL = 2.5 mg, Inhalation, Every 6 hours, PRN for wheezing, # 100 each, 5 Refills, Maintenance, 08/17/21 9:51:00 EDT, Solution, [facility], replaces previous Rx for albuterol-ipatropium [...] once daily, # 90 capsule, 1 Refills, [facility], 162, cm, 09/16/21 15:34:00 EDT, [...] 08/17/21 9:51:00 EDT, Route to Pharmacy Electronically, [id number], [facility], [...] tablet, 11 Refills, Maintenance, 03/16/21 11:27:00 EST, [facility] 1967, 162, cm, 03/10/21 14:17:00 EST, Height, [...] oldest [Reference Range]: 1 Height 163 cm (01/30/22 9:59 AM) Weight 126.81 kg (01/30/22 9:59 AM) Body Mass Index [18.5-24.99 kg/m2] 47.73 kg/m2 *>HHI* (01/30/22 9:59 AM) Blood Pressure [90-138/55-84 mm Hg] 122/ 70mm Hg (01/30/22 9:59 AM) Blood pressure sites Arm, left (01/30/22 9:59 AM) Weight Obtained Via Standing scale (01/30/22 9:59 AM) Social History Social History Type Response Smoking Status Never smoker; Tobacc o user in household: No entered on: 07/02/15 Sex Patient Care team information Care Team Personnel Name: Nanci Melendez MD Position: [facility] Primary Care Physician Member Role: PCP Address: Address: [address] [place] [address]- Care Team Related Persons Name: ERMARAFA Address: [address] Address: home [address] [place] [address] [place] Name: DERRELL RITCHIE Address: [address] [address] Name: DERRELL RITCHIE Address: home [address] [place] [address] Name: DERRELL RITCHIE Address: [address] [address] Name: SHEBA CANO Address: home [address] [place] [address] Name: DAYANNA CANO Address: home [address] [place] [address]
--- OUTSIDE RECORDS SUMMARY | 2024-02-22 11:47 | XMS_ITS | Continuity of Care Document ---
Author Organization [facility]am[facility] Address [address] [facility], [address] [address]- Care Team Providers Care Power Ballast Machine Operator Name Role Phone Nanci Melendez MD Primary Care Physician En[place] [facility] Date(s): 08/01/21 - 08/31/21 [facility] [address] [facility], 4[address] [place] [address]- Allergies, Adverse Reactions, Alerts Substance Reaction Severity [...] ded 1Result Comment: [facility]# [id number] PT. TOLERATED INJ. WITHOUT COMPLICATIONS....CO 2Result Comment: [facility]# [id number] PT. TOLERATED INJ. WITHOUT COMPLICATIONS...CO 3Result Comment: [04/06/2016] pt. tolerated inj. without complications...CO 4Result Comment: [04/14/2015] Measles mumps rubella titer Medications Albuterol (Eqv-ProAir HFA) 90 mcg/inh inhalation aerosol See Instructions, INHALE 2 PUFFS BY MOUTH 4 TIMES DAILY NEEDED FOR WHEEZING, # 9 Gm, 6 Refills, 08/17/21 9:51:00 EDT, [facility] 1967, 25, INHALE 2 PUFFS BY MOUTH 4 TIMES DAILY NEEDED FORWHEEZING, 162, cm, 08/03/21 16:59:00 EDT, Height, 1... Start Date: 08/17/21 Status: Ordered albuterol 0.083% inhalation solution 3 mL = 2.5 mg, Inhalation, Every 6 hours, PRN for wheezing, # 100 each, 5 Refills, Maintenance, 08/17/21 9:51:00 EDT, Solution, [facility], replaces previous Rx for albuterol-ipatropium [...] tablet, 11 Refills, Maintenance, 08/18/21 16:40:00EDT, Tablet, [facility], Partial fill upon patient request [...] 08/17/21 9:51:00 EDT, Route to Pharmacy Electronically, [id number], [facility] 1967, 162, cm, 08/03/21 [...] tablet, 11 Refills, Maintenance, 03/16/21 11:27:00 EST, [facility], 162, c... Start [...] each, 11 Refills, Maintenance, 06/18/20 9:35:00 EDT, [facility], 161, cm, :18:00 [...]
--- OUTSIDE RECORDS SUMMARY | 2024-02-22 11:47 | XMS_ITS | Continuity of Care Document ---
Author Organization [facility] Address [address] [facility], 4t [place] [address]- Care Team Providers Care Wood Handler Name Role Phone Al DIEGO, Nanci Segovia Primary Care Physician [place] [facility] [place] 12/09/21 - 01/08/22 [facility] [address] [facility], 4th [place] [address]- Allergies, Adverse Reactions, Alerts Substance Reaction Severity [...] ded 1Result Comment: [facility]# [id number] PT. TOLERATED INJ. WITHOUT COMPLICATIONS....CO 2Result Comment: [facility]# [id number] PT. TOLERATED INJ. WITHOUT COMPLICATIONS...CO 3Result Comment: [04/06/2016] pt. tolerated inj. without complications...CO 4Result Comment: [04/14/2015] Measles mumps rubella titer Medications Albuterol (Eqv-ProAir HFA) 90 mcg/inh inhalation aerosol See Instructions, INHALE 2 PUFFS BY MOUTH 4 TIMES DAILY NEEDED FOR WHEEZING, # 9 Gm, 6 Refills, 08/17/21 9:51:00 EDT, [facility], 25, INHALE 2 PUFFS BY MOUTH 4 TIMES DAILY NEEDED FORWHEEZING, 162, cm, 08/03/21 16:59:00 EDT, Height, 1... Start Date: 08/17/21 Status: Ordered albuterol 0.083% inhalation solution 3 mL = 2.5 mg, Inhalation, Every 6 hours, PRN for wheezing, # 100 each, 5 Refills, Maintenance, 08/17/21 9:51:00 EDT, Solution, [facility], replaces previous Rx for albuterol-ipatropium [...] once daily, # 90 capsule, 1 Refills, [facility], 162, cm, 09/16/21 15:34:00 [...] 11 Refills, Maintenance, 08/18/21 16:40:00EDT, Tablet, [facility] 1967, Partial fill upon patient [...] 08/17/21 9:51:00 EDT, Route to Pharmacy Electronically, [id number], [facility] 1967, 162, cm, 08/03/21 16:59:00 [...] 11 Refills, Maintenance, 03/16/21 11:27:00 EST, [facility] 1967, 162, cm, 03/10/21 14:17:00 [...] 11 Refills, Maintenance, 06/18/20 9:35:00 EDT, [facility] 1967, 161, cm, :18:00 EDT, [...] Personnel Name: Nanci Melendez MD Address: Address: [address] [place] [address]
--- OUTSIDE RECORDS SUMMARY | 2024-02-22 11:48 | XMS_ITS | Continuity of Care Document ---
Author Organization [facility] e Medicine Address [address] [facility], 4t [address] [place] [address]- Care Team Providers Care Material Movers Name Role Phone Al DIEGO, Nanci Segovia Primary Care Physician [phone] Encounter [facility] Date(s): 07/09/20 - 08/08/20 [facility] [address] [facility], 4th Floor [address] [place] [id number] Allergies, Adverse Reactions, Alerts Substance [...] 1Result Comment: [facility]# [id number] PT. TOLERATED INJ. WITHOUT COMPLICATIONS....CO 2Result Comment: [facility]# [id number] PT. TOLERATED INJ. WITHOUT COMPLICATIONS...CO 3Result Comment: [04/06/2016] pt. tolerated inj. without complications...CO 4Result Comment: [04/14/2015] Measles mumps rubella titer Medications Advair Diskus 500 mcg-50 mcg inhalation powder 1, puffs, Inhalation, 2 times a day, # 1 each, Refills 12, Tot. Refills 12, Maintenance, 12/24/19 13:40:00 EDT, Route to Pharmacy Electronically, [id number], [facility], 161, cm, 06/12/19 8:56:00 EDT, Height, 106,... Start Date: 12/24/19 Status: Ordered Albuterol (Eqv-ProAir HFA) 90 mcg/inh inhalation aerosol 2 puffs, Inhalation, 4 times a day, PRN NEEDED FOR WHEEZING, # 18 Gm, 10 Refills, Maintenance, 06/07/20 14:34:00 EST, [facility], 50, INHALE 2 PUFFS BY MOUTH 4 TIMES DAILY NEEDED FORWHEEZING, 161, cm, 02/10/20 14:26:00 EST, Height, 1... Start Date: 06/07/20 Status: Ordered albuterol-ipratropium 3 mg-0.5 mg/3 ml inhalation solution 3 mL, Neb, 4 times a day, PRN shortness of breath, # 180 mL, 11 Refills, Maintenance, 06/18/20 9:36:00 EDT, Solution, [facility], 3 mL Neb [...] 3 Refills, Maintenance, 12/24/19 13:41:00 EDT, ECCapsule, [facility], 161, cm, 06/12/19 [...] tablet, 3 Refills, Maintenance, 06/08/20 8:28:00 EST, [facility], 161, cm, 02/10/20 [...] tablet, 11 Refills, Maintenance, 02/10/20 14:25:00 EST, [facility], 161, c... Start [...] [facility], 161, cm, 219:18:00 [...] 07/09/20 16:28:00 EDT, Route to Pharmacy Electronically, [facility], Partial [...]
--- OUTSIDE RECORDS SUMMARY | 2024-02-22 11:48 | XMS_ITS | Continuity of Care Document ---
Author Organization [facility] Address [address] [place] [address], [place], [place] [address]- Care Team Providers Care Casing Cooker Name Role Phone Nanci Melendez MD Primary Care Physician [phone] Encounter [facility] Date(s): 07/18/21 - 07/25/21 [facility] [address] [facility], 4th [place], [place] [address] Attending Physician: [...] Recor ded 1Result Comment: [facility]# [id number] PT. TOLERATED INJ. WITHOUT COMPLICATIONS....CO 2Result Comment: [facility]# [id number] PT. TOLERATED INJ. WITHOUT COMPLICATIONS...CO 3Result Comment: [...] Gm, 10 Refills, Maintenance, 06/07/20 14:34:00 EST, [facility], 50, INHALE 2 PUFFS BY MOUTH 4 TIMES DAILY NEEDED FORWHEEZING, 161, cm, 02/10/20 14:26:00 EST, Height, 1... Start Date: 06/07/20 Status: Ordered Albuterol (Eqv-ProAir HFA) 90 mcg/inh inhalation aerosol See Instructions, INHALE 2 PUFFS BY MOUTH 4 TIMES DAILY NEEDED FOR WHEEZING, # 9 Gm, 6 Refills, [facility], 25, INHALE 2 PUFFS BY MOUTH 4 TIMES DAILY NEEDED FOR WHEEZING, 162, cm, 05/03/21 9:55:00 EST, Height, 105.2, kg, 02/12/21 17:0... Start Date: 06/24/21 Status: Ordered albuterol 0.083% inhalation solution 3 mL = 2.5 mg, Inhalation, Every 6 hours, PRN for wheezing, # 100 each, 5 Refills, Maintenance, 06/24/21 12:33:00 EDT, Solution, [facility], replaces previous Rx for [...] 0 Refills, Maintenance, 02/11/21 12:37:00 EST, ECCapsule, [facility], 163, cm, 01/01/21 10:10:00 EDT, Height Start Date: 02/11/21 Status: Ordered Endometrin 100 mg vaginal insert = 100 mg, Vaginally, 3 times a day, to add on day of transfer, # 90 supp, 5 Refills, Maintenance, 04/28/21 9:20:00 EST, [facility], Partial fill upon patient [...] each, Refills 5, Route to Pharmacy Electronically, [id number], [facility], 163, cm, 01/01/21 10:10:00 EDT, Height Start Date: 01/28/21 Status: Ordered Macrobid macrocrystals-monohydrate 100 mg oral capsule 1 capsule = 100 mg, By Mouth, 2 times a day, for 7 days, # 14 capsule, 0 Refills, Acute 07/31/21 11:15:00 EDT, 07/24/21 11:15:00 EDT, Capsule, [facility], Partial fill upon patient requestif [...] tablet, 11 Refills, Maintenance, 03/16/21 11:27:00 EST, [facility], 162, c... Start [...] each, 11 Refills, Maintenance, 06/18/20 9:35:00 EDT, [facility], 161, cm, :18:00 EDT, Height, 106, kg, 09/11/18 13:37:00 EDT... Start Date: 06/18/20 Status: Ordered Multivitamins By Mouth, Daily, 0 Refills, Maintenance, 06/05/18 11:27:06 EST Start Date: 06/05/18 Status: Ordered progesterone 50 mg/mL intramuscular solution 100mg/ml 2 ml (sesame oil), Intramuscular, Daily, # 60 mL, 5 Refills, Maintenance, 06/27/21 16:29:00 EDT, [facility], Partial fill upon patient request if the prescription is for a schedule II opioid drug., 162, cm, 05/03/21 9:55:00 E... Start Date: 06/27/21 Status: Ordered Provera 10 mg oral tablet 10 mg, 1, tablet, By Mouth, Daily, # 10 tablet, Refills 0, Tot. Refills 0, Maintenance, 04/04/21 10:58:00 EST, Route to Pharmacy Electronically, [facility], Partial fill upon [...] Procedure Date Related Diagnosis Body Site Status Gastric pacemaker 2016 Complet ed Vital Signs Most recent to oldest [Reference Range]: 1 Height 162 cm (07/18/21 11:16 AM) Weight 105.8 kg (07/18/21 11:16 AM) Body Mass Index [18.5-24.99] 40.31 *>HHI* (07/18/21 11:16 AM) Dry Weight 105.8 kg (07/18/21 11:16 AM) Weight Obtained Via Standing scale (07/18/21 11:16 AM) Social History Social History Type Response Smoking Status Never smoker; Tobacc o user in household: No entered on: 07/02/15 Sex
--- OUTSIDE RECORDS SUMMARY | 2024-02-22 11:48 | XMS_ITS | Continuity of Care Document ---
Author Organization [facility] Address [address] [place] [address]- Care Team Providers Care Pre Sales Network Engineer Name Role Phone Nanci Melendez MD Primary Care Physician [facility]counter [facility] Date(s): 07/24/21 - 07/24/[address] [address] Discharge Disposition: A-D/C Home Attending Physician: Nancy [...] [facility]# [id number] PT. TOLERATED INJ. WITHOUT COMPLICATIONS....CO 2Result Comment: [facility]# [id number] PT. TOLERATED INJ. WITHOUT COMPLICATIONS...CO 3Result Comment: [...] EST, Height, 105.2, kg, 02/12/21 17:08:00 EST, [facility]ex Start Date: 06/27/21 Status: Ordered Albuterol (Eqv-ProAir HFA) 90 mcg/inh inhalation aerosol 2 puffs, Inhalation, 4 times a day, PRN NEEDED FOR WHEEZING, # 18 Gm, 10 Refills, Maintenance, 06/07/20 14:34:00 EST, [facility], 50, INHALE 2 PUFFS BY MOUTH 4 TIMES DAILY NEEDED FORWHEEZING, 161, cm, 02/10/20 14:26:00 EST, Height, 1... Start Date: 06/07/20 Status: Ordered Albuterol (Eqv-ProAir HFA) 90 mcg/inh inhalation aerosol See Instructions, INHALE 2 PUFFS BY MOUTH 4 TIMES DAILY NEEDED FOR WHEEZING, # 9 Gm, 6 Refills, [facility], 25, INHALE 2 PUFFS BY MOUTH 4 TIMES DAILY NEEDED FOR WHEEZING, 162, cm, 05/03/21 9:55:00 EST, Height, 105.2, kg, 02/12/21 17:0... Start Date: 06/24/21 Status: Ordered albuterol 0.083% inhalation solution 3 mL = 2.5 mg, Inhalation, Every 6 hours, PRN for wheezing, # 100 each, 5 Refills, Maintenance, 06/24/21 12:33:00 EDT, Solution, [facility] 1967, replaces previous Rx for [...] 0 Refills, Maintenance, 02/11/21 12:37:00 EST, ECCapsule, [facility], 163, cm, 01/01/21 10:10:00 EDT, Height Start Date: 02/11/21 Status: Ordered Endometrin 100 mg vaginal insert = 100 mg, Vaginally, 3 times a day, to add on day of transfer, # 90 supp, 5 Refills, Maintenance, 04/28/21 9:20:00 EST, [facility], Partial fill upon patient [...] each, Refills 5, Route to Pharmacy Electronically, [id number], [facility], 163, cm, 01/01/21 10:10:00 EDT, Height Start Date: 01/28/21 Status: Ordered Macrobid macrocrystals-monohydrate 100 mg oral capsule 1 capsule = 100 mg, By Mouth, 2 times a day, for 7 days, # 14 capsule, 0 Refills, Acute 07/31/21 11:15:00 EDT, 07/24/21 11:15:00 EDT, Capsule, [facility], Partial fill upon patient [...] tablet, 11 Refills, Maintenance, 03/16/21 11:27:00 EST, [facility], 162, c... Start Date: [...] each, 11 Refills, Maintenance, 06/18/20 9:35:00 EDT, [facility], 161, cm, :18:00 EDT, Height, 106, kg, 09/11/18 13:37:00 EDT... Start Date: 06/18/20 Status: Ordered Multivitamins By Mouth, Daily, 0 Refills, Maintenance, 06/05/18 11:27:06 EST Start Date: 06/05/18 Status: Ordered progesterone 50 mg/mL intramuscular solution 100mg/ml 2 ml (sesame oil), Intramuscular, Daily, # 60 mL, 5 Refills, Maintenance, 06/27/21 16:29:00 EDT, [facility], Partial fill upon patient request if the prescription is for a schedule II opioid drug., 162, cm, 05/03/21 9:55:00 E... Start Date: 06/27/21 Status: Ordered Provera 10 mg oral tablet 10 mg, 1, tablet, By Mouth, Daily, # 10 tablet, Refills 0, Tot. Refills 0, Maintenance, 04/04/21 10:58:00 EST, Route to Pharmacy Electronically, [facility] 1966, Partial fill upon patient [...] oldest [Reference Range]: 1 Height 162 cm (07/24/21 10:38 AM) Weight 105.9 kg (07/24/21 10:38 AM) Oxygen Saturation [94-100 %] 98 % (07/24/21 10:38 AM) Pulse Rate [55-90 bpm] 100 bpm *H* (07/24/21 10:38 AM) Body Mass Index [18.5-24.99] 40.35 *>HHI* (07/24/21 10:38 AM) Blood Pressure [90-138/55-84 mm Hg] 127/ 83mm Hg (07/24/21 10:38 AM) Respiratory Rate [16-30 br/min] 20 br/mi n (07/24/21 10:38 AM) Temperature [96.8-100.4 DegF] 98.2 DegF (07/24/21 10:38 AM) Mode of Delivery (Oxygen) Room air (07/24/21 10:38 AM) Blood pressure sites Arm, left (07/24/21 10:38 AM) Temperature Route Oral (07/24/21 10:38 AM) Dry Weight 105.9 kg (07/24/21 10:38 AM) Weight Obtained Via Standing scale (07/24/21 10:38 AM) Dry Weight Obtained Via Standing scale (07/24/21 10:38 AM) Social History Social History Type Response Smoking Status Never smoker; Tobacc o user in household: No entered on: 07/02/15 Sex
--- OUTSIDE RECORDS SUMMARY | 2024-02-22 11:48 | XMS_ITS | Continuity of Care Document ---
Author Organization [facility] n[facility] [employer] Address [address] [place] [address], [address], [place] [address]- Care Team Providers Care Critical Care Specialist Name Role Phone Nanci Melendez MD Primary Care Physician [phone] Encounter [facility] Date(s): 01/23/22 - 01/30/22 [facility] [address] [facility], [address]th [place], [place] [address] Attending Physician: Adela Sorto MD [...] Virus Vaccine 11/21/89 Recor ded 1Result Comment: [facility]# [id number] PT. TOLERATED INJ. WITHOUT COMPLICATIONS....CO 2Result Comment: [facility]# [id number] PT. TOLERATED INJ. WITHOUT COMPLICATIONS...CO 3Result Comment: [...] 5 Refills, Maintenance, 08/17/21 9:51:00 EDT, Solution, [facility], replaces previous Rx for albuterol-ipatropium [...] once daily, # 90 capsule, 1 Refills, [facility], 162, cm, 09/16/21 15:34:00 EDT, [...] 16:40:00EDT, Tablet, [facility], Partial [...] 08/17/21 9:51:00 EDT, Route to Pharmacy Electronically, [id number], [facility], 162, [...] tablet, 11 Refills, Maintenance, 03/16/21 11:27:00 EST, [facility] 1967, 162, cm, 03/10/21 14:17:00 EST, Height, [...] Name: Nanci Melendez MD Address: Address: [address] [place] [address]
--- OUTSIDE RECORDS SUMMARY | 2024-02-22 11:48 | XMS_ITS | Continuity of Care Document ---
Author Organization [facility] Address [address] [place] [address]- Care Team Providers Care Jewelry Department Supervisor Name Role Phone Al DIEGO, Nanci Segovia Primary Care Physician [facility]counter [facility] Date(s): 03/13/23 - 04/12/23 [facility] [address] [place] [address]- Allergies, Adverse Reactions, Alerts Substance Reaction Severity [...] Vaccine 11/21/89 Recor ded 1Result Comment: [facility]# [id number] PT. TOLERATED INJ. WITHOUT COMPLICATIONS....CO 2Result Comment: [facility]# [id number] PT. TOLERATED INJ. WITHOUT COMPLICATIONS...CO 3Result Comment: [04/06/2016] pt. tolerated inj. without complications...CO 4Result Comment: [04/14/2015] Measles mumps rubella titer Medications acetaminophen 325 mg oral tablet 650 mg, By Mouth, Every 4 hours, PRN, not to exceed 4000 mg/day, # 60 tablet, Refills 0, Tot. Refills 0, Maintenance, Pain , Mild, 02/08/22 8:05:00 EST, Route to Pharmacy Electronically, [facility], Partial fill upon patient request if the... Start Date: 02/08/22 Status: Ordered Albuterol (Eqv-ProAir HFA) 90 mcg/inh inhalation aerosol See Instructions, INHALE 2 PUFFS BY MOUTH 4 TIMES DAILY NEEDED FOR WHEEZING, # 9 Gm, 6 Refills, 08/17/21 9:51:00 EDT, [facility], 25, INHALE 2 PUFFS BY MOUTH 4 TIMES DAILY NEEDED FORWHEEZING, 162, cm, 08/03/21 16:59:00 EDT, Height, 1... Start Date: 08/17/21 Status: Ordered albuterol 0.083% inhalation solution 3 mL = 2.5 mg, Inhalation, Every 6 hours, PRN for wheezing, # 100 each, 5 Refills, Maintenance, 06/19/22 15:15:00 EDT, Solution, [id number], replaces previous Rx for albuterol-ipatropium [...] mL, 0 Refills, Maintenance, 03/17/22 15:45:00 EST, [facility], Partial fill upon patient request if the prescription is for a schedule II opioid drug., 163, cm, 03/17/22... Start Date: 03/17/22 Stop Date: 03/31/22 Status: Ordered Dexilant 60 mg oral delayed release capsule See Instructions, Take 1 capsule by mouth once daily, # 90 capsule, 0 Refills, 03/14/22 14:26:00 EST, [facility], 163, cm, 02/27/22 9:06:00 EST, Height, 128.2, kg, 02/05/22 12:22:00 EST, Dry Weight Start Date: 03/14/22 Status: Ordered Diflucan 150 mg oral tablet 1 tablet = 150 mg, By Mouth, Once, # 1 tablet, 0 Refills, Soft Stop, 03/01/22 15:59:00 EST, Tablet,[facility], Partial fill upon patient request [...] tablet, 11 Refills, Maintenance, 08/18/21 16:40:00EDT, Tablet, [facility], Partial fill upon patient [...] 03/12/23 11:30:00 EST, Route to Pharmacy Electronically, [id number], [id number], 163, cm, 03/02/23 13:11:00 EST, Height, 128.2, kg, 02/05/22 1... Start Date: 03/12/23 Status: Ordered ibuprofen 800 mg oral tablet 800 mg, 1, tablet, By Mouth, Every 8 hours, PRN, not to exceed 3200 mg/day with food or milk, # 40 tablet, Refills 0, Tot. Refills 0, Maintenance, Pain , Moderate, 02/08/22 8:05:00 EST, Route to Pharmacy Electronically, [facility], Partial... Start Date: 02/08/22 Status: [...] tablet, 5 Refills, Maintenance, 08/16/22 9:41:00 EDT, [id number], 163, cm, 05/01/22 14:15:00 EST, Height, 128.2, kg, 02/05/22 12:22:00 EST, Dry Weight Start Date: 08/16/22 Status: Ordered ondansetron 4 mg oral tablet See Instructions, TAKE 1 TABLET BY MOUTH EVERY 8 HOURS NEEDED FOR NAUSEA AND VOMITING FOR 5 DAYS, # 15 each, 11 Refills, Maintenance, 06/19/22 15:15:00 EDT, [id number], 163, cm, 05/01/22 14:15:00 EST, Height, 128.2, kg, 02/05/22 12:22:00 ES... Start Date: 06/19/22 Status: Ordered Multivitamins By Mouth, Daily, 0 Refills, Maintenance, 06/05/18 11:27:06 EST Start Date: 06/05/18 Status: Ordered Ventolin HFA 108 mcg/inh inhalation aerosol with adapter 2 puffs, Inhalation, Every 4 hours, PRN for wheezing, # 8 Gm, 5 Refills, Maintenance, 03/12/23 11:35:00 EST, Aerosol, [id number], Partial fill upon patient request [...] Team Personnel Name: Adela Sorto MD Position: [facility] CUSTOMS BROKER MD Member Role: [employer] CUSTOMS BROKER Physician Address: Address: [address] [place] [address], [address] [facility] [place] [address]- Name: Nanci Melendez MD Position: [facility] Physician - Primary Care Member Role: PCP Address: Address: [address] [place] [address]- [place] Care Team Related Persons Name: SEAN RITCHIE Address: [address] Address: [address] [place] [address] Name: DERRELL RITCHIE Address: home [address] [facility] [address] [place] [address] Name: DERRELL RITCHIE Address: home [address] [facility] [address] [place] [address] Name: DERRELL RITCHIE Address: home [address] [place] [address] Name: SHEBA CANO Address: home [address] [place] [address] Name: DAYANNA CANO Address: home [address] [place] [address]
--- OUTSIDE RECORDS SUMMARY | 2024-02-22 11:48 | XMS_ITS | Continuity of Care Document ---
Author Organization [facility] ter Address [address] [place] [address]- Care Team Providers Care Accounts Payable Manager Name Role Phone Nanci Melendez MD Primary Care Physician [facility]counter [facility] Date(s): 12/13/21 - 12/13/[address] [address] Discharge Disposition: A-D/C Home Attending Physician: Shady Hernández MD Admitting Physician: Shady Hernández MD Referring Physician: Shady Hernández MD Allergies, Adverse Reactions, Alerts Substance Reaction [...] [facility]# [id number] PT. TOLERATED INJ. WITHOUT COMPLICATIONS....CO 2Result Comment: [facility]# [id number] PT. TOLERATED INJ. WITHOUT COMPLICATIONS...CO 3Result Comment: [04/06/2016] pt. tolerated inj. without complications...CO 4Result Comment: [04/14/2015] Measles mumps rubella titer Medications Albuterol (Eqv-ProAir HFA) 90 mcg/inh inhalation aerosol See Instructions, INHALE 2 PUFFS BY MOUTH 4 TIMES DAILY NEEDED FOR WHEEZING, # 9 Gm, 6 Refills, 08/17/21 9:51:00 EDT, [facility], 25, INHALE 2 PUFFS BY MOUTH 4 TIMES DAILY NEEDED FORWHEEZING, 162, cm, 08/03/21 16:59:00 EDT, Height, 1... Start Date: 08/17/21 Status: Ordered albuterol 0.083% inhalation solution 3 mL = 2.5 mg, Inhalation, Every 6 hours, PRN for wheezing, # 100 each, 5 Refills, Maintenance, 08/17/21 9:51:00 EDT, Solution, [facility] 1967, replaces previous Rx for [...] once daily, # 90 capsule, 1 Refills, [facility], 162, cm, 09/16/21 15:34:00 [...] 08/17/21 9:51:00 EDT, Route to Pharmacy Electronically, [id number], [facility], 162, [...] [facility], 162, c... Start Date: [...] [facility], 161, cm, 219:18:00 EDT, [...] Team Personnel Name: Nanci Melendez MD Address: [address] [place] [address]
--- OUTSIDE RECORDS SUMMARY | 2024-02-22 11:48 | XMS_ITS | Continuity of Care Document ---
Author Organization [facility] Address [address] [place] [address]- Care Team Providers Care Rn Access Name Role Phone Nanci Melendez MD Primary Care Physician En[place] [facility] [place] Date(s): 06/21/21 - 08/05/21 [facility] [address] [place], [place] [address] Attending Physician: Nanci Melendez MD Allergies, Adverse [...] ded 1Result Comment: [facility]# [id number] PT. TOLERATED INJ. WITHOUT COMPLICATIONS....CO 2Result Comment: [facility]# [id number] PT. TOLERATED INJ. WITHOUT COMPLICATIONS...CO 3Result Comment: [...] Gm, 10 Refills, Maintenance, 06/07/20 14:34:00 EST, [facility] 1967, 50, INHALE 2 PUFFS BY MOUTH 4 TIMES DAILY NEEDED FORWHEEZING, 161, cm, 02/10/20 14:26:00 EST, Height, 1... Start Date: 06/07/20 Status: Ordered Albuterol (Eqv-ProAir HFA) 90 mcg/inh inhalation aerosol See Instructions, INHALE 2 PUFFS BY MOUTH 4 TIMES DAILY NEEDED FOR WHEEZING, # 9 Gm, 6 Refills, [facility] 1967, 25, INHALE 2 PUFFS BY MOUTH 4 TIMES DAILY NEEDED FOR WHEEZING, 162, cm, 05/03/21 9:55:00 EST, Height, 105.2, kg, 02/12/21 17:0... Start Date: 06/24/21 Status: Ordered albuterol 0.083% inhalation solution 3 mL = 2.5 mg, Inhalation, Every 6 hours, PRN for wheezing, # 100 each, 5 Refills, Maintenance, 06/24/21 12:33:00 EDT, Solution, [facility] 1967, replaces previous Rx for albuterol-ipatropium solution, 162, cm, 05/03/21 9:55:00 EST, Height, 105.... Start Date: 06/24/21 Status: Ordered amoxicillin 875 mg oral tablet 1 tablet = 875 mg, By Mouth, Every 12 hours, for 5 days, # 10 tablet, 0 Refills, Acute 08/09/21 17:07:00 EDT, 08/04/21 17:07:00 EDT, Tablet, [facility] 1967, Partial fill upon patient request if the prescription is for a schedule II opioid drug.... Start Date: 08/04/21 Stop Date: 08/09/21 Status: Ordered Benadryl 25 mg oral capsule See Instructions, 2 capsule By Mouth PRN, 0 Refills, Maintenance, 07/24/18 11:01:32 EDT Start Date: 07/24/18 Status: Ordered Dexilant 60 mg oral delayed release capsule 1 capsule = 60 mg, By Mouth, Daily, # 90 capsule, 0 Refills, Maintenance, 02/11/21 12:37:00 EST, ECCapsule, [facility] 1967, 163, cm, 01/01/21 10:10:00 EDT, Height Start Date: 02/11/21 Status: Ordered Endometrin 100 mg vaginal insert = 100 mg, Vaginally, 3 times a day, to add on day of transfer, # 90 supp, 5 Refills, Maintenance, 04/28/21 9:20:00 EST, [facility], Partial fill upon patient [...] each, Refills 5, Route to Pharmacy Electronically, [id number], [facility], 163, cm, 01/01/21 10:10:00 EDT, Height Start Date: 01/28/21 Status: Ordered metFORMIN 500 mg oral tablet, extended release See Instructions, take 1 tablet po w/dinner x1 wk, then increase to 2 tablets x 1-2 wks, then increase to 3 tablets 1-2 wks,then 4 tabs with dinner every day., # 120 tablet, 11 Refills, Maintenance, 03/16/21 11:27:00 EST, [facility], 162, c... Start Date: [...] each, 11 Refills, Maintenance, 06/18/20 9:35:00 EDT, [facility], 161, cm, :18:00 EDT, Height, 106, kg, 09/11/18 13:37:00 EDT... Start Date: 06/18/20 Status: Ordered Multivitamins By Mouth, Daily, 0 Refills, Maintenance, 06/05/18 11:27:06 EST Start Date: 06/05/18 Status: Ordered progesterone 50 mg/mL intramuscular solution 100mg/ml 2 ml (sesame oil), Intramuscular, Daily, # 60 mL, 5 Refills, Maintenance, 06/27/21 16:29:00 EDT, [facility], Partial fill upon patient request if the prescription is for a schedule II opioid drug., 162, cm, 05/03/21 9:55:00 E... Start Date: 06/27/21 Status: Ordered Provera 10 mg oral tablet 10 mg, 1, tablet, By Mouth, Daily, # 10 tablet, Refills 0, Tot. Refills 0, Maintenance, 04/04/21 10:58:00 EST, Route to Pharmacy Electronically, [facility] 1967, Partial fill upon patient [...]
--- OUTSIDE RECORDS SUMMARY | 2024-02-22 11:48 | XMS_ITS | Continuity of Care Document ---
Author Organization [facility] Address [address] [place] [address]- Care Team Providers Care Rough Planer Tender Name Role Phone Al DIEGO, Nanci Segovia Primary Care Physician Encounter [facility] Date(s): 10/19/23 - 11/18/23 [facility] [address] [place] [address]- Allergies, Adverse Reactions, Alerts Substance Reaction Severity [...] Recor ded 1Result Comment: [facility]# [id number] PT. TOLERATED INJ. WITHOUT COMPLICATIONS....CO 2Result Comment: [facility]# [id number] PT. TOLERATED INJ. WITHOUT COMPLICATIONS...CO 3Result Comment: [04/06/2016] pt. tolerated inj. without complications...CO 4Result Comment: [04/14/2015] Measles mumps rubella titer Medications albuterol 0.083% inhalation solution 3 mL = 2.5 mg, Inhalation, Every 6 hours, PRN for wheezing, # 100 each, 5 Refills, Maintenance, 06/19/22 15:15:00 EDT, Solution, [facility]/pharmacy #[id number], replaces previous Rx for albuterol-ipatropium solution, 163, cm, 05/01/22 14:15:00 EST, Height, 128.2,... Start Date: 06/19/22 Status: Ordered Dexilant 60 mg oral delayed release capsule See Instructions, Take 1 capsule by mouth once daily, # 90 capsule, 0 Refills, 03/14/22 14:26:00 EST, [facility], 163, cm, 02/27/22 [...] tablet, 11 Refills, Maintenance, 08/18/21 16:40:00EDT, Tablet, [facility], Partial [...] 03/12/23 11:30:00 EST, Route to Pharmacy Electronically, [id number], [facility]/pharmacy #1130, 163, cm, 03/02/23 13:11:00 EST, Height, 128.2, kg, 02/05/22 1... 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, 08/30/18 17:26:09 EDT, Compound Start Date: 08/30/18 Status: Ordered norethindrone 0.35 mg oral tablet 1 tablet, By Mouth, Daily, # 84 tablet, 5 Refills, Maintenance, 08/16/22 9:41:00 EDT, [facility], 163, cm, 05/01/22 14:15:00 EST, Height, 128.2, kg, 02/05/22 12:22:00 EST, Dry Weight Start Date: 08/16/22 Status: Ordered ondansetron 4 mg oral tablet 1 tablet, By Mouth, Every 8 hours, PRN NEEDED FOR NAUSEA AND VOMITING FOR, # 15 tablet, 3 Refills, Maintenance, 09/14/23 16:11:00 EDT, [facility], 160, cm, 07/21/23 8:30:00 EDT, Height, 114, [...] Refills, Maintenance, 03/12/23 11:35:00 EST, Aerosol, [facility]/pharmacy #1130, Partial fill upon patient request [...] Personnel Name: Macario DIEGO, Adela Marroquin Position: [facility] JOB SPECIFICATION WRITER MD Member Role: Lifetime JOB SPECIFICATION WRITER Physician Address: Address: [address] [place] [address], [address] [facility] [place], [place] [address] Name: Nanci Melendez MD Position: [facility] Physician - Primary Care Member Role: PCP Address: Address: [address] [place] [address]- Name: Tammy Schuler Position: [facility] Outreach Member Role: Lifetime Consulting Physician Care Team Related Persons Name: SEAN RITCHIE Address: [id number] Address: home [address] [place] [address] [place] Name: DERRELL RITCHIE Address: home [address] [facility] [address] [place] [address] Name: DERRELL RITCHIE Address: home [address] [facility] [address] [place] [address] Name: DERRELL RITCHIE Address: home [address] [facility] [address] [place] [address] Name: SHEBA CANO Address: home [address] [place] [address] Name: DAYANNA CANO Address: home [address] [place] [address]
--- OUTSIDE RECORDS SUMMARY | 2024-02-22 11:48 | XMS_ITS | Continuity of Care Document ---
Author Organization [facility] Address [address] [place] [address]- Care Team Providers Care Automatic Screwmaker Name Role Phone Al DIEGO, Nanci Segovia Primary Care Physician [phone] Encounter [facility] Date(s): 09/12/23 - 10/12/23 [facility] [address] [place] [address]- Allergies, Adverse Reactions, Alerts Substance Reaction Severity [...] Recor ded 1Result Comment: [facility]# [id number] PT. TOLERATED INJ. WITHOUT COMPLICATIONS....CO 2Result Comment: [facility]# [id number] PT. TOLERATED INJ. WITHOUT COMPLICATIONS...CO 3Result Comment: [...] 90 capsule, 0 Refills, 03/14/22 14:26:00 EST, [facility], 163, cm, 02/27/22 [...] tablet, 11 Refills, Maintenance, 08/18/21 16:40:00EDT, Tablet, [facility], Partial [...] 03/12/23 11:30:00 EST, Route to Pharmacy Electronically, [id number], [facility]/pharmacy #1130, 163, cm, 03/02/23 13:11:00 EST, Height, 128.2, kg, 02/05/22 1... 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, 08/30/18 17:26:09 EDT, Compound Start Date: 08/30/18 Status: Ordered norethindrone 0.35 mg oral tablet 1 tablet, By Mouth, Daily, # 84 tablet, 5 Refills, Maintenance, 08/16/22 9:41:00 EDT, [facility], 163, cm, 05/01/22 14:15:00 EST, Height, 128.2, kg, 02/05/22 12:22:00 EST, Dry Weight Start Date: 08/16/22 Status: Ordered ondansetron 4 mg oral tablet 1 tablet, By Mouth, Every 8 hours, PRN NEEDED FOR NAUSEA AND VOMITING FOR, # 15 tablet, 3 Refills, Maintenance, 09/14/23 16:11:00 EDT, [facility], 160, cm, 07/21/23 8:30:00 EDT, Height, 114, kg, 07/21/23 8:30:00 EDT, Dry Weight Start Date: 09/14/23 Stop Date: 09/19/23 Status: Ordered Multivitamins By Mouth, Daily, 0 Refills, Maintenance, 06/05/18 11:27:06 EST Start Date: 06/05/18 Status: Ordered Ventolin HFA 108 mcg/inh inhalation aerosol with adapter 2 puffs, Inhalation, Every 4 hours, PRN for wheezing, # 8 Gm, 5 Refills, Maintenance, 03/12/23 11:35:00 EST, Aerosol, [facility]/pharmacy #1130, Partial fill upon patient request if [...] Personnel Name: Macario DIEGO, Adela Marroquin Position: [facility] READING PROFESSOR MD Member Role: Lifetime READING PROFESSOR Physician Address: Address: [address] [place] [address], [address] [facility] [place], [place] [address] Name: Nanci Melendez MD Position: [facility] Physician - Primary Care Member Role: PCP Address: Address: [address] [place] [address] Name: Tammy Schuler Position: [facility] Outreach Member Role: Lifetime Consulting Physician Care Team Related Persons Name: SEAN RITCHIE Address: [address] Address: home [address] [place] [address] [place] Name: DERRELL RITCHIE Address: home [address] [facility] [address] [place] [address] Name: DERRELL RITCHIE Address: home [address] [facility] [address] [place] [address] Name: DERRELL RITCHIE Address: home [address] [facility] [address] [place] [address] Name: SHEBA CANO Address: home [address] [place] [address] Name: DAYANNA CANO Address: home [address] [place] [address]
--- OUTSIDE RECORDS SUMMARY | 2024-02-22 11:48 | XMS_ITS | Continuity of Care Document ---
Author Organization [facility] Address [address] [place] [address]- Care Team Providers Care Inspector Mechanical Name Role Phone Nanci Melendez MD Primary Care Physician Encounter [facility] Date(s): 06/11/20 - 07/11/20 [facility] [address] [place], [place] [address] Allergies, Adverse Reactions, Alerts Substance Reaction Severity [...] Virus Vaccine 11/21/89 Recor ded 1Result Comment: [facility]# [id number] PT. TOLERATED INJ. WITHOUT COMPLICATIONS....CO 2Result Comment: [facility]# [id number] PT. TOLERATED INJ. WITHOUT COMPLICATIONS...CO 3Result Comment: [04/06/2016] pt. tolerated inj. without complications...CO 4Result Comment: [04/14/2015] Measles mumps rubella titer Medications Advair Diskus 500 mcg-50 mcg inhalation powder 1, puffs, Inhalation, 2 times a day, # 1 each, Refills 12, Tot. Refills 12, Maintenance, 12/24/19 13:40:00 EDT, Route to Pharmacy Electronically, [id number], [facility], 161, cm, 06/12/19 8:56:00 EDT, Height, 106,... Start Date: 12/24/19 Status: Ordered Albuterol (Eqv-ProAir HFA) 90 mcg/inh inhalation aerosol 2 puffs, Inhalation, 4 times a day, PRN NEEDED FOR WHEEZING, # 18 Gm, 10 Refills, Maintenance, 06/07/20 14:34:00 EST, [facility], 50, INHALE 2 PUFFS BY MOUTH 4 TIMES DAILY NEEDED FORWHEEZING, 161, cm, 02/10/20 14:26:00 EST, Height, 1... Start Date: 06/07/20 Status: Ordered albuterol-ipratropium 3 mg-0.5 mg/3 ml inhalation solution 3 mL, Neb, 4 times a day, PRN shortness of breath, # 180 mL, 11 Refills, Maintenance, 06/18/20 9:36:00 EDT, Solution, [facility], 3 mL Neb [...] capsule, 3 Refills, Maintenance, 12/24/19 13:41:00 EDT, ECCapsule [facility], 161, cm, 06/12/19 [...] 15 tablet, 3 Refills, Maintenance, 06/08/20 8:28:00 EST [facility], 161, cm, 02/10/20 [...] tablet, 11 Refills, Maintenance, 02/10/20 14:25:00 EST, [facility], 161, c... Start [...] each, 11 Refills, Maintenance, 06/18/20 9:35:00 EDT, [facility], 161, cm, 219:18:00 [...] 07/09/20 16:28:00 EDT, Route to Pharmacy Electronically, [facility], Partial fill upon [...]
--- OUTSIDE RECORDS SUMMARY | 2024-02-22 11:48 | XMS_ITS | Continuity of Care Document ---
Author Organization [facility] Address Unknown Care Team Providers Care Order Dispatcher Name Role Phone Nanci Melendez MD Primary Care Physician [phone] Encounter [facility] Date(s): 02/08/21 - 03/10/21 [facility] Allergies, Adverse Reactions, [...] 1Result Comment: [facility]# [id number] PT. TOLERATED INJ. WITHOUT COMPLICATIONS....CO 2Result Comment: [facility]# [id number] PT. TOLERATED INJ. WITHOUT COMPLICATIONS...CO 3Result Comment: [...] Gm, 10 Refills, Maintenance, 06/07/20 14:34:00 EST, [facility], 50, INHALE 2 PUFFS BY MOUTH 4 TIMES DAILY NEEDED FORWHEEZING, 161, cm, 02/10/20 14:26:00 EST, Height, 1... Start Date: 06/07/20 Status: Ordered albuterol-ipratropium 3 mg-0.5 mg/3 ml inhalation solution 3 mL, Neb, 4 times a day, PRN shortness of breath, # 180 mL, 11 Refills, Maintenance, 06/18/20 9:36:00 EDT, Solution, [facility], 3 mL Neb 4 times a day,PRN:shortness of breath, 161, cm, 06/18/20 9:18:00 EDT, Height, 106, kg, 09/11/18 13:37... Start Date: 06/18/20 Status: Ordered Apri 0.15 mg-0.03 mg oral tablet 1 tablet, By Mouth, Daily, start first tablet today, # 1 pack/packet, 3 Refills, Maintenance, 12/09/20 13:48:00 EDT, [facility] 1967, Partial fill upon [...] 0 Refills, Maintenance, 02/11/21 12:37:00 EST, ECCapsule, [facility], 163, cm, 01/01/21 10:10:00 EDT, Height Start Date: 02/11/21 Status: Ordered doxycycline hyclate 100 mg oral tablet 1 tablet = 100 mg, By Mouth, 2 times a day, # 28 tablet, 5 Refills, Maintenance, 12/31/20 8:23:00 EDT, [facility], Partial fill upon [...] each, Refills 5, Route to Pharmacy Electronically, [id number], [facility], 163, cm, 01/01/21 10:10:00 EDT, Height Start Date: 01/28/21 Status: Ordered Gonal-F 1050 units subcutaneous injection = 150 International_Units, Subcutaneous Injection, Daily, # 2 kit, 5 Refills, Maintenance, 218:23:00 EDT, [facility], Partial fill upon [...] tablet, 11 Refills, Maintenance, 02/10/20 14:25:00 EST, [facility], 161, c... Start [...] each, 11 Refills, Maintenance, 06/18/20 9:35:00 EDT, [facility], 161, cm, 219:18:00 EDT, Height, 106, kg, 09/11/18 13:37:00 EDT... Start Date: 06/18/20 Status: Ordered oxyCODONE 5 mg oral tablet 5 mg, 1, tablet, By Mouth, Every 6 hours, PRN, # 8 tablet, Refills 0, Tot. Refills 0, Maintenance, Pain , Mild, 01/18/21 9:22:00 EDT, Route to Pharmacy Electronically, [facility] 1967, Partial fill upon patient request if the prescription is for... Start Date: 01/18/21 Status: Ordered Pregnyl 15534 u injectable powder for injection = 1,000 units, Intramuscular, Once, For use as trigger shot. Use 3 mL of diluent to reconstitute powder. Draw and administer 0.3 mL of reconsituted pregnyl for total dose of 1000 units., # 1 kit, 5 Refills, Soft Stop, 12/31/20 8:24:00 EDT, [facility]... Start Date: 12/31/20 Status: Ordered Multivitamins By Mouth, Daily, 0 Refills, Maintenance, 06/05/18 11:27:06 EST Start Date: 06/05/18 Status: Ordered progesterone 50 mg/mL intramuscular solution 50mg/ml 1 ml (sesame oil), Intramuscular, Daily, # 30 mL, 5 Refills, Maintenance, 02/03/21 11:55:00EDT, [facility], Partial fill upon patient request if the prescription is for a schedule II opioid drug., 163, cm, 01/01/21 10:10:00 E... Start Date: 02/03/21 Status: Ordered Prometrium 200 mg oral capsule See Instructions, vaginally 3 times a day, # 90 tablet, 5 Refills, Maintenance, 12/31/20 8:22:00 EDT, [facility], Partial fill upon patient request [...] 01/18/21 9:22:00 EDT, Route to Pharmacy Electronically, [facility] 1966, Partial fill upon [...] patch, 5 Refills, Maintenance, 12/31/20 8:23:00 EDT, [facility], Partial fill upon patient request if the prescription is for a schedule II opio... Start Date: 12/31/20 Status: Ordered yes yes, See Instructions, # 2 each, Refills 5, Tot. Refills 5, Maintenance, [place] Capped Insulin Syringe for lupron administration, 12/31/20 [...]
--- OUTSIDE RECORDS SUMMARY | 2024-02-22 11:48 | XMS_ITS | Continuity of Care Document ---
Author Organization [facility] Address [address] [place] [address], [address], [place] [address]- Care Team Providers Care Semiconductor Wafers Etcher Stripper Name Role Phone Nanci Melendez MD Primary Care Physician Encounter [facility] Date(s): 11/29/21 - 03/29/22 [facility] [address] [facility], [address] [place], [place] [address] Attending Physician: Adela Sorto MD Allergies, Adverse [...] ded 1Result Comment: [facility]# [id number] PT. TOLERATED INJ. WITHOUT COMPLICATIONS....CO 2Result Comment: [facility]# [id number] PT. TOLERATED INJ. WITHOUT COMPLICATIONS...CO 3Result Comment: [04/06/2016] pt. tolerated inj. without complications...CO 4Result Comment: [04/14/2015] Measles mumps rubella titer Medications acetaminophen 325 mg oral tablet 650 mg, By Mouth, Every 4 hours, PRN, not to exceed 4000 mg/day, # 60 tablet, Refills 0, Tot. Refills 0, Maintenance, Pain , Mild, 02/08/22 8:05:00 EST, Route to Pharmacy Electronically, [facility] 1966, Partial fill upon patient request if the... Start Date: 02/08/22 Status: Ordered Albuterol (Eqv-ProAir HFA) 90 mcg/inh inhalation aerosol See Instructions, INHALE 2 PUFFS BY MOUTH 4 TIMES DAILY NEEDED FOR WHEEZING, # 9 Gm, 6 Refills, 08/17/21 9:51:00 EDT, [facility] 1967, 25, INHALE 2 PUFFS BY MOUTH 4 TIMES DAILY NEEDED FORWHEEZING, 162, cm, 08/03/21 16:59:00 EDT, Height, 1... Start Date: 08/17/21 Status: Ordered albuterol 0.083% inhalation solution 3 mL = 2.5 mg, Inhalation, Every 6 hours, PRN for wheezing, # 100 each, 5 Refills, Maintenance, 08/17/21 9:51:00 EDT, Solution, [facility] 1966, replaces previous Rx for [...] mL, 0 Refills, Maintenance, 03/17/22 15:45:00 EST, [facility], Partial fill upon patient request if the prescription is for a schedule II opioid drug., 163, cm, 03/17/22... Start Date: 03/17/22 Stop Date: 03/31/22 Status: Ordered Dexilant 60 mg oral delayed release capsule See Instructions, Take 1 capsule by mouth once daily, # 90 capsule, 0 Refills, 03/14/22 14:26:00 EST, [facility], 163, cm, 02/27/22 9:06:00 EST, Height, 128.2, kg, 02/05/22 12:22:00 EST, Dry Weight Start Date: 03/14/22 Status: Ordered Diflucan 150 mg oral tablet 1 tablet = 150 mg, By Mouth, Once, # 1 tablet, 0 Refills, Soft Stop, 03/01/22 15:59:00 EST, [facility], Partial fill upon patient request [...] tablet, 11 Refills, Maintenance, 08/18/21 16:40:00EDT, Tablet, [facility], Partial fill upon patient request [...] 08/17/21 9:51:00 EDT, Route to Pharmacy Electronically, [id number], [facility] 1967, 162, cm, 08/03/21 16:59:00 EDT, Height, 110, kg, 08/03/21 1... Start Date: 08/17/21 Status: Ordered ibuprofen 800 mg oral tablet 800 mg, 1, tablet, By Mouth, Every 8 hours, PRN, not to exceed 3200 mg/day with food or milk, # 40 tablet, Refills 0, Tot. Refills 0, Maintenance, Pain , Moderate, 02/08/22 8:05:00 EST, Route to Pharmacy Electronically, [facility] 1967, Partial... Start Date: [...] Team Personnel Name: Nanci Melendez MD Position: [facility] Primary Care Physician Member Role: PCP Address: Address: [address] [place] [address]- Care Team Related Persons Name: SEAN RITCHIE Address: [address] Address: home [address] [place] [address] [place] Name: DERRELL RITCHIE Address: [address] [address] Name: DERRELL RITCHIE Address: home [address] [place] [address] Name: DERRELL RITCHIE Address: [address] [address] Name: SHEBA CANO Address: home [address] [place] [address] Name: DAYANNA CANO Address: home [address] [place] [address]
--- OUTSIDE RECORDS SUMMARY | 2024-02-22 11:48 | XMS_ITS | Continuity of Care Document ---
Author Organization [facility] Address [address] [place] [address]- Care Team Providers Care Director Fundraising Name Role Phone Nanci Melendez MD Primary Care Physician Encounter [facility] Date(s): 12/24/19 - 01/23/20 [facility] [address] [place] [address]- [facility] Allergies, Adverse Reactions, Alerts Substance Reaction Severity [...] Virus Vaccine 11/21/89 Recor ded 1Result Comment: [facility]# [id number] PT. TOLERATED INJ. WITHOUT COMPLICATIONS....CO 2Result Comment: [facility]# [id number] PT. TOLERATED INJ. WITHOUT COMPLICATIONS...CO 3Result Comment: [04/06/2016] pt. tolerated inj. without complications...CO 4Result Comment: [04/14/2015] Measles mumps rubella titer Medications Advair Diskus 500 mcg-50 mcg inhalation powder 1, puffs, Inhalation, 2 times a day, # 1 each, Refills 12, Tot. Refills 12, Maintenance, 12/24/19 13:40:00 EDT, Route to Pharmacy Electronically, [id number], [facility] 1967, 161, cm, 06/12/19 8:56:00 EDT, Height, 106,... Start Date: 12/24/19 Status: Ordered albuterol 0.083% inhalation solution 3 mL = 2.5 mg, Inhalation, Every 6 hours, PRN for wheezing, # 60 each, 11 Refills, Maintenance, 12/24/19 13:40:00 EDT, Solution, [facility] 1967, 161, cm, 06/12/19 8:56:00 [...] Refills, Maintenance, 12/24/19 13:41:00 EDT, ECCapsule, [facility] 1967, 161, cm, 06/12/19 8:56:00 EDT, Height, 106, kg, 09/11/18 13:37:00 EDT, Dry Weight Start Date: 12/24/19 Status: Ordered diclofenac sodium 75 mg oral delayed release tablet 1 tablet = 75 mg, By Mouth, 2 times a day, PRN for pain, TAKE WITH FOOD, # 28 tablet, 1 Refills, Maintenance, 12/16/19 9:22:00 EDT, Tablet, [facility] 1967, 161, cm, 06/12/19 8:56:00 [...] each, 5 Refills, Maintenance, 12/24/19 13:58:00 EDT, [facility] 1967, 161, cm, :56:00 EDT, Height, [...] 15:55:00 EST, Aerosol, Route to Pharmacy Electronically, [id number], [facility] 1967, 161, cm, 01/20/19 11:38:00 EDT,... Start Date: 05/19/19 Status: Ordered ProAir HFA 90 mcg/inh inhalation aerosol with adapter 180 mcg, 2, puffs, Inhalation, 4 times a day, # 1 each, Refills 4, Tot. Refills 4, Maintenance, 12/24/19 13:40:00 EDT, Inhaler, Route to Pharmacy Electronically, [id number],[facility] 1967, 161, cm, 06/12/19 8:56:00 ED... [...]
--- OUTSIDE RECORDS SUMMARY | 2024-02-22 11:48 | XMS_ITS | Continuity of Care Document ---
Author Organization [facility] Address [address] [place] [address]- Care Team Providers Care Pigment Weigher Name Role Phone Al DIEGO, Nanci Segovia Primary Care Physician [facility]counter [facility] Date(s): 02/27/22 - 03/29/22 [facility] [address] [place] [address]- Attending Physician: Debbie COMPUTATIONAL SCIENCES PROFESSOR, Meg Allergies, Adverse Reactions, Alerts Substance Reaction Severity [...] ded 1Result Comment: [facility]# [id number] PT. TOLERATED INJ. WITHOUT COMPLICATIONS....CO 2Result Comment: [facility]# [id number] PT. TOLERATED INJ. WITHOUT COMPLICATIONS...CO 3Result Comment: [04/06/2016] pt. tolerated inj. without complications...CO 4Result Comment: [04/14/2015] Measles mumps rubella titer Medications acetaminophen 325 mg oral tablet 650 mg, By Mouth, Every 4 hours, PRN, not to exceed 4000 mg/day, # 60 tablet, Refills 0, Tot. Refills 0, Maintenance, Pain , Mild, 02/08/22 8:05:00 EST, Route to Pharmacy Electronically, [facility] 1966, Partial fill upon patient request if the... Start Date: 02/08/22 Status: Ordered Albuterol (Eqv-ProAir HFA) 90 mcg/inh inhalation aerosol See Instructions, INHALE 2 PUFFS BY MOUTH 4 TIMES DAILY NEEDED FOR WHEEZING, # 9 Gm, 6 Refills, 08/17/21 9:51:00 EDT, [facility] 1966, 25, INHALE 2 PUFFS BY MOUTH 4 TIMES DAILY NEEDED FORWHEEZING, 162, cm, 08/03/21 16:59:00 EDT, Height, 1... Start Date: 08/17/21 Status: Ordered albuterol 0.083% inhalation solution 3 mL = 2.5 mg, Inhalation, Every 6 hours, PRN for wheezing, # 100 each, 5 Refills, Maintenance, 08/17/21 9:51:00 EDT, Solution, [facility], replaces previous Rx for albuterol-ipatropium [...] mL, 0 Refills, Maintenance, 03/17/22 15:45:00 EST, [facility], Partial fill upon patient request if the prescription is for a schedule II opioid drug., 163, cm, 03/17/22... Start Date: 03/17/22 Stop Date: 03/31/22 Status: Ordered Dexilant 60 mg oral delayed release capsule See Instructions, Take 1 capsule by mouth once daily, # 90 capsule, 0 Refills, 03/14/22 14:26:00 EST, [facility] 1967, 163, cm, 02/27/22 9:06:00 EST, Height, 128.2, kg, 02/05/22 12:22:00 EST, Dry Weight Start Date: 03/14/22 Status: Ordered Diflucan 150 mg oral tablet 1 tablet = 150 mg, By Mouth, Once, # 1 tablet, 0 Refills, Soft Stop, 03/01/22 15:59:00 EST, Tablet,[facility], Partial fill upon patient request [...] tablet, 11 Refills, Maintenance, 08/18/21 16:40:00EDT, Tablet, [facility] 1966, Partial fill upon [...] 08/17/21 9:51:00 EDT, Route to Pharmacy Electronically, [id number], [facility], 162, cm, 08/03/21 16:59:00 EDT, Height, 110, kg, 08/03/21 1... Start Date: 08/17/21 Status: Ordered ibuprofen 800 mg oral tablet 800 mg, 1, tablet, By Mouth, Every 8 hours, PRN, not to exceed 3200 mg/day with food or milk, # 40 tablet, Refills 0, Tot. Refills 0, Maintenance, Pain , Moderate, 02/08/22 8:05:00 EST, Route to Pharmacy Electronically, [facility] 1967, Partial... Start Date: [...] Personnel Name: Al DIEGO, Nanci Segovia Position: [facility] Primary Care Physician Member Role: PCP Address: Address: [address] [place] [address]- Care Team Related Persons Name: SEAN RITCHIE Address: [address] Address: home [address] [place] [address] Name: DERRELL RITCHIE Address: home [address] [place] [address] Name: DERRELL RITCHIE Address: home [address] [address] Name: DERRELL RITCHIE Address: [address] [address] Name: SHEBA CANO Address: home [address] [place] [address] Name: DAYANNA CANO Address: home [address] [place] [address]
--- OUTSIDE RECORDS SUMMARY | 2024-02-22 11:48 | XMS_ITS | Continuity of Care Document ---
Author Organization [facility] Address [address] [place] [address]- Care Team Providers Care Talent Consultant Name Role Phone Nanci Melendez MD Primary Care Physician [facility] Date(s): 10/13/22 - 02/10/23 [facility] [address] [place] [address]- Attending Physician: Nanci Melendez MD Allergies, Adverse [...] ded 1Result Comment: [facility]# [id number] PT. TOLERATED INJ. WITHOUT COMPLICATIONS....CO 2Result Comment: [facility]# [id number] PT. TOLERATED INJ. WITHOUT COMPLICATIONS...CO 3Result Comment: [04/06/2016] pt. tolerated inj. without complications...CO 4Result Comment: [04/14/2015] Measles mumps rubella titer Medications acetaminophen 325 mg oral tablet 650 mg, By Mouth, Every 4 hours, PRN, not to exceed 4000 mg/day, # 60 tablet, Refills 0, Tot. Refills 0, Maintenance, Pain , Mild, 02/08/22 8:05:00 EST, Route to Pharmacy Electronically, [facility] 1967, Partial fill upon patient request if the... Start Date: 02/08/22 Status: Ordered Albuterol (Eqv-ProAir HFA) 90 mcg/inh inhalation aerosol See Instructions, INHALE 2 PUFFS BY MOUTH 4 TIMES DAILY NEEDED FOR WHEEZING, # 9 Gm, 6 Refills, 08/17/21 9:51:00 EDT, [facility], 25, INHALE 2 PUFFS BY MOUTH 4 TIMES DAILY NEEDED FORWHEEZING, 162, cm, 08/03/21 16:59:00 EDT, Height, 1... Start Date: 08/17/21 Status: Ordered albuterol 0.083% inhalation solution 3 mL = 2.5 mg, Inhalation, Every 6 hours, PRN for wheezing, # 100 each, 5 Refills, Maintenance, 06/19/22 15:15:00 EDT, Solution, [facility] #[id number], replaces previous Rx for [...] mL, 0 Refills, Maintenance, 03/17/22 15:45:00 EST, [facility], Partial fill upon patient request if the prescription is for a schedule II opioid drug., 163, cm, 03/17/22... Start Date: 03/17/22 Stop Date: 03/31/22 Status: Ordered Dexilant 60 mg oral delayed release capsule See Instructions, Take 1 capsule by mouth once daily, # 90 capsule, 0 Refills, 03/14/22 14:26:00 EST, [facility], 163, cm, 02/27/22 9:06:00 EST, Height, 128.2, kg, 02/05/22 12:22:00 EST, Dry Weight Start Date: 03/14/22 Status: Ordered Diflucan 150 mg oral tablet 1 tablet = 150 mg, By Mouth, Once, # 1 tablet, 0 Refills, Soft Stop, 03/01/22 15:59:00 EST, Tablet,[facility], Partial fill upon patient request [...] tablet, 11 Refills, Maintenance, 08/18/21 16:40:00EDT, Tablet, [facility], Partial fill upon patient request [...] 05/04/22 9:46:00 EST, Route to Pharmacy Electronically, [id number], [facility], 163, cm, 05/01/22 14:15:00 EST, Height, 128.2, kg, 02/05/22... Start Date: 05/04/22 Status: Ordered ibuprofen 800 mg oral tablet 800 mg, 1, tablet, By Mouth, Every 8 hours, PRN, not to exceed 3200 mg/day with food or milk, # 40 tablet, Refills 0, Tot. Refills 0, Maintenance, Pain , Moderate, 02/08/22 8:05:00 EST, Route to Pharmacy Electronically, [facility], Partial... Start Date: 02/08/22 Status: [...] tablet, 5 Refills, Maintenance, 08/16/22 9:41:00 EDT, [id number], 163, cm, 05/01/22 14:15:00 EST, Height, 128.2, [...] Personnel Name: Adela Sorto MD Position: S KILN BURNER Member Role: Lifetime KILN BURNER Physician Address: Address: [address] [place] [address], [address] [facility] [address] Name: Nanci Melendez MD Position: [facility] Physician - Primary Care Member Role: PCP Address: Address: [address] [place] [address]- Care Team Related Persons Name: SEAN RITCHIE Address: [address] Address: home [address] [place] [address] Name: DERRELL RITCHIE Address: home [address] [place] [address] Name: DERRELL RITCHIE Address: home [address] [facility] [address] [place] [address] Name: RITCHIE DERRELL Address: home [address] [facility] [address] [place] [address] Name: SHEBA CANO Address: home [address] [place] [address] Name: DAYANNA CANO Address: home [address] [place] [address]
--- OUTSIDE RECORDS SUMMARY | 2024-02-22 11:48 | XMS_ITS | Continuity of Care Document ---
Author Organization [facility] Address [address] [place] [address]- Care Team Providers Care Entertainment Centre Manager Name Role Phone Nanci Melendez MD Primary Care Physician [facility]counter [facility] Date(s): 01/23/21 - 01/23/[address] [address] Discharge Disposition: A-D/C Home Attending Physician: Cheryl [...] Comment: [facility]# [id number] PT. TOLERATED INJ. WITHOUT COMPLICATIONS....CO 2Result Comment: [facility]# [id number] PT. TOLERATED INJ. WITHOUT COMPLICATIONS...CO 3Result Comment: [...] 12/24/19 13:40:00 EDT, Route to Pharmacy Electronically, [id number], [facility], 161, cm, 06/12/19 8:56:00 EDT, Height, 106,... Start Date: 12/24/19 Status: Ordered Albuterol (Eqv-ProAir HFA) 90 mcg/inh inhalation aerosol 2 puffs, Inhalation, 4 times a day, PRN NEEDED FOR WHEEZING, # 18 Gm, 10 Refills, Maintenance, 06/07/20 14:34:00 EST, [facility], 50, INHALE 2 PUFFS BY MOUTH 4 TIMES DAILY NEEDED FORWHEEZING, 161, cm, 02/10/20 14:26:00 EST, Height, 1... Start Date: 06/07/20 Status: Ordered albuterol-ipratropium 3 mg-0.5 mg/3 ml inhalation solution 3 mL, Neb, 4 times a day, PRN shortness of breath, # 180 mL, 11 Refills, Maintenance, 06/18/20 9:36:00 EDT, Solution, [facility], 3 mL Neb 4 times a day,PRN:shortness of breath, 161, cm, 06/18/20 9:18:00 EDT, Height, 106, kg, 09/11/18 13:37... Start Date: 06/18/20 Status: Ordered Apri 0.15 mg-0.03 mg oral tablet 1 tablet, By Mouth, Daily, start first tablet today, # 1 pack/packet, 3 Refills, Maintenance, 12/09/20 13:48:00 EDT, [facility], Partial fill upon [...] 3 Refills, Maintenance, 12/24/19 13:41:00 EDT, ECCapsule, [facility], 161, cm, 06/12/19 8:56:00 EDT, Height, 106, kg, 09/11/18 13:37:00 EDT, Dry Weight Start Date: 12/24/19 Status: Ordered doxycycline hyclate 100 mg oral tablet 1 tablet = 100 mg, By Mouth, 2 times a day, # 28 tablet, 5 Refills, Maintenance, 12/31/20 8:23:00 EDT, [facility], Partial fill upon [...] 02/20/21 8:26:00 EST, 12/31/20 8:23:00 EDT, Solution, [facility], Partial fill upon patient request if theprescription is for a schedule II opioid drug., 161... Start Date: 12/31/20 Stop Date: 02/20/21 Status: Ordered Gonal-F 1050 units subcutaneous injection = 150 International_Units, Subcutaneous Injection, Daily, # 2 kit, 5 Refills, Maintenance, 218:23:00 EDT, [facility], Partial fill upon [...] 02/20/21 8:26:00 EST, 12/31/20 8:22:00 EDT, Powder, [facility], Partial fill upon [...] tablet, 11 Refills, Maintenance, 02/10/20 14:25:00 EST, [facility], 161, c... Start [...] each, 11 Refills, Maintenance, 06/18/20 9:35:00 EDT, [facility], 161, cm, 219:18:00 EDT, Height, 106, kg, 09/11/18 13:37:00 EDT... Start Date: 06/18/20 Status: Ordered oxyCODONE 5 mg oral tablet 5 mg, 1, tablet, By Mouth, Every 6 hours, PRN, # 8 tablet, Refills 0, Tot. Refills 0, Maintenance, Pain , Mild, 01/18/21 9:22:00 EDT, Route to Pharmacy Electronically, [facility], Partial fill upon patient request if the prescription is for... Start Date: 01/18/21 Status: Ordered Pregnyl 55538 u injectable powder for injection = 1,000 units, Intramuscular, Once, For use as trigger shot. Use 3 mL of diluent to reconstitute powder. Draw and administer 0.3 mL of reconsituted pregnyl for total dose of 1000 units., # 1 kit, 5 Refills, Soft Stop, 12/31/20 8:24:00 EDT, [facility]... Start Date: 12/31/20 Status: Ordered Multivitamins By Mouth, Daily, 0 Refills, Maintenance, 06/05/18 11:27:06 EST Start Date: 06/05/18 Status: Ordered Prometrium 200 mg oral capsule See Instructions, vaginally 3 times a day, # 90 tablet, 5 Refills, Maintenance, 12/31/20 8:22:00 EDT, [facility], Partial fill upon [...] 01/18/21 9:22:00 EDT, Route to Pharmacy Electronically, [facility] 1966, Partial fill upon [...] patch, 5 Refills, Maintenance, 12/31/20 8:23:00 EDT, [facility], Partial fill upon patient request if the prescription is for a schedule II opio... Start Date: 12/31/20 Status: Ordered yes yes, See Instructions, # 2 each, Refills 5, Tot. Refills 5, Maintenance, [place] Capped Insulin Syringe for lupron administration, 12/31/20 [...]
--- OUTSIDE RECORDS SUMMARY | 2024-02-22 11:48 | XMS_ITS | Continuity of Care Document ---
Author Organization [facility] Address Unknown Care Team Providers Care Bird Keeper Name Role Phone Nanci Melendez MD Primary Care Physician [phone] Encounter [facility] Date(s): 04/28/21 - 06/16/21 [facility] Attending Physician: Tiffanie [...] ded 1Result Comment: [facility]# [id number] PT. TOLERATED INJ. WITHOUT COMPLICATIONS....CO 2Result Comment: [facility]# [id number] PT. TOLERATED INJ. WITHOUT COMPLICATIONS...CO 3Result Comment: [...] Gm, 10 Refills, Maintenance, 06/07/20 14:34:00 EST, [email or web address], 50, INHALE 2 PUFFS BY MOUTH 4 TIMES DAILY NEEDED FORWHEEZING, 161, cm, 02/10/20 14:26:00 EST, Height, 1... Start Date: 06/07/20 Status: Ordered albuterol 0.083% inhalation solution 3 mL = 2.5 mg, Inhalation, Every 6 hours, PRN for wheezing, # 25 each, 0 Refills, Maintenance, 04/04/21 12:33:00 EST, Solution, [email or web address], replaces previous Rx for albuterol-ipatropium solution, 162, cm, 03/10/21 14:17:00 EST, Height, 105.... Start Date: 04/04/21 Status: Ordered albuterol-ipratropium 3 mg-0.5 mg/3 ml inhalation solution 3 mL, Neb, 4 times a day, PRN shortness of breath, # 180 mL, 2 Refills, Maintenance, 04/04/21 8:55:00 EST, Solution, [facility] 1967, 3 mL Neb 4 times a day,PRN:shortness of breath, 162, cm, 03/10/21 14:17:00 EST, Height, 105.2, kg, 02/12/21 17:... Start Date: 04/04/21 Status: Ordered Apri 0.15 mg-0.03 mg oral tablet 1 tablet, By Mouth, Daily, start first tablet today, # 1 pack/packet, 3 Refills, Maintenance, 12/09/20 13:48:00 EDT, [facility], Partial fill [...] 0 Refills, Maintenance, 02/11/21 12:37:00 EST, ECCapsule, [facility], 163, cm, 01/01/21 10:10:00 EDT, Height Start Date: 02/11/21 Status: Ordered Endometrin 100 mg vaginal insert = 100 mg, Vaginally, 3 times a day, to add on day of transfer, # 90 supp, 5 Refills, Maintenance, 04/28/21 9:20:00 EST, [facility], Partial fill upon [...] each, Refills 5, Route to Pharmacy Electronically, [id number], [facility], 163, cm, 01/01/21 10:10:00 EDT, Height Start Date: 01/28/21 Status: Ordered metFORMIN 500 mg oral tablet, extended release See Instructions, take 1 tablet po w/dinner x1 wk, then increase to 2 tablets x 1-2 wks, then increase to 3 tablets 1-2 wks,then 4 tabs with dinner every day., # 120 tablet, 11 Refills, Maintenance, 03/16/21 11:27:00 EST, [facility], 162, c... Start [...] each, 11 Refills, Maintenance, 06/18/20 9:35:00 EDT, [facility], 161, cm, 219:18:00 EDT, Height, 106, kg, 09/11/18 13:37:00 EDT... Start Date: 06/18/20 Status: Ordered oxyCODONE 5 mg oral tablet 5 mg, 1, tablet, By Mouth, Every 6 hours, PRN, # 8 tablet, Refills 0, Tot. Refills 0, Maintenance, Pain , Mild, 01/18/21 9:22:00 EDT, Route to Pharmacy Electronically, [facility], Partial fill upon patient request if the prescription is for... Start Date: 01/18/21 Status: Ordered Multivitamins By Mouth, Daily, 0 Refills, Maintenance, 06/05/18 11:27:06 EST Start Date: 06/05/18 Status: Ordered progesterone 50 mg/mL intramuscular solution 50mg/ml 1 ml (sesame oil), Intramuscular, Daily, # 30 mL, 5 Refills, Maintenance, 04/28/21 9:19:00 EST, [facility], Partial fill upon patient request if the prescription is for a schedule II opioid drug., 162, cm, 03/10/21 14:17:00 ES... Start Date: 04/28/21 Status: Ordered Provera 10 mg oral tablet 10 mg, 1, tablet, By Mouth, Daily, # 10 tablet, Refills 0, Tot. Refills 0, Maintenance, 04/04/21 10:58:00 EST, Route to Pharmacy Electronically, [facility], Partial fill upon [...] 01/18/21 9:22:00 EDT, [facility], Partial fill upon patient request if the... Start Date: 01/18/21 Status: Ordered Valium 5 mg oral tablet 5 mg, 1, tablet, By Mouth, Once, One tablet one hour prior to procedure, may repeat x 1 as needed for anxiety, # 2 tablet, Refills 0, Tot. Refills 0, Soft Stop, 06/04/21 13:10:00 EST, [facility], Partial fi... Start Date: 06/04/21 [...] patch, 5 Refills, Maintenance, 04/28/21 9:19:00 EST, [facility], Partial fill upon [...]
--- OUTSIDE RECORDS SUMMARY | 2024-02-22 11:48 | XMS_ITS | Continuity of Care Document ---
Author Organization [facility] Address [address] [place] [address]- Care Team Providers Care Mobile Home Technician Name Role Phone Nanci Melendez MD Primary Care Physician [facility] Date(s): 04/22/20 - 06/04/20 [facility] [address] [place], [place] [address] Attending Physician: Nanci Melendez MD Allergies, Adverse [...] [facility]# [id number] PT. TOLERATED INJ. WITHOUT COMPLICATIONS....CO 2Result Comment: [facility]# [id number] PT. TOLERATED INJ. WITHOUT COMPLICATIONS...CO 3Result Comment: [04/06/2016] pt. tolerated inj. without complications...CO 4Result Comment: [04/14/2015] Measles mumps rubella titer Medications Advair Diskus 500 mcg-50 mcg inhalation powder 1, puffs, Inhalation, 2 times a day, # 1 each, Refills 12, Tot. Refills 12, Maintenance, 12/24/19 13:40:00 EDT, Route to Pharmacy Electronically, [id number], [facility], 161, cm, 06/12/19 8:56:00 EDT, Height, 106,... Start Date: 12/24/19 Status: Ordered albuterol 0.083% inhalation solution 3 mL = 2.5 mg, Inhalation, Every 6 hours, PRN for wheezing, # 60 each, 11 Refills, Maintenance, 12/24/19 13:40:00 EDT, Solution, [facility], 161, cm, 06/12/19 [...] 3 Refills, Maintenance, 12/24/19 13:41:00 EDT, ECCapsule, [facility], 161, cm, 06/12/19 8:56:00 EDT, Height, 106, kg, 09/11/18 13:37:00 EDT, Dry Weight Start Date: 12/24/19 Status: Ordered diclofenac sodium 75 mg oral delayed release tablet 1 tablet = 75 mg, By Mouth, 2 times a day, PRN for pain, TAKE WITH FOOD, # 28 tablet, 1 Refills, Maintenance, 12/16/19 9:22:00 EDT, Tablet, [facility], 161, cm, 06/12/19 [...] tablet, 3 Refills, Maintenance, 02/09/20 17:27:00 EST, [facility], 161, cm, 06/12/19 [...] tablet, 11 Refills, Maintenance, 02/10/20 14:25:00 EST, [facility], 161, c... Start [...] each, 5 Refills, Maintenance, 12/24/19 13:58:00 EDT, [facility], 161, cm, 208:56:00 [...] 13:40:00 EDT, Inhaler, Route to Pharmacy Electronically, [id number],[facility], 161, cm, 06/12/19 8:56:00 ED... Start Date: 12/24/19 Status: Ordered ProAir HFA 90 mcg/inh inhalation aerosol with adapter 2, puffs, Inhalation, 4 times a day, PRN, # 2 each, Refills 5, Tot. Refills 5, Maintenance, 05/19/19 15:55:00 EST, Aerosol, Route to Pharmacy Electronically, [id number], [facility], 161, cm, 01/20/19 [...]
--- OUTSIDE RECORDS SUMMARY | 2024-02-22 11:48 | XMS_ITS | Continuity of Care Document ---
Author Organization [facility] e Medicine Address [address] [facility] [address], 4t [address] [place] [address]- Care Team Providers Care Foster Care Social Worker Name Role Phone Al DIEGO, Nanci Segovia Primary Care Physician [phone] Encounter [facility] Date(s): 12/26/22 - 01/25/23 [facility] Reproductive Medicine [address], 4th [address] [place] [address] [...] ded 1Result Comment: [facility]# [id number] PT. TOLERATED INJ. WITHOUT COMPLICATIONS....CO 2Result Comment: [facility]# [id number] PT. TOLERATED INJ. WITHOUT COMPLICATIONS...CO 3Result Comment: [04/06/2016] pt. tolerated inj. without complications...CO 4Result Comment: [04/14/2015] Measles mumps rubella titer Medications acetaminophen 325 mg oral tablet 650 mg, By Mouth, Every 4 hours, PRN, not to exceed 4000 mg/day, # 60 tablet, Refills 0, Tot. Refills 0, Maintenance, Pain , Mild, 02/08/22 8:05:00 EST, Route to Pharmacy Electronically, [facility], Partial fill upon patient request if the... Start Date: 02/08/22 Status: Ordered Albuterol (Eqv-ProAir HFA) 90 mcg/inh inhalation aerosol See Instructions, INHALE 2 PUFFS BY MOUTH 4 TIMES DAILY NEEDED FOR WHEEZING, # 9 Gm, 6 Refills, 08/17/21 9:51:00 EDT, [facility], 25, INHALE 2 PUFFS [...] mL, 0 Refills, Maintenance, 03/17/22 15:45:00 EST, [facility], Partial fill upon patient request if the prescription is for a schedule II opioid drug., 163, cm, 03/17/22... Start Date: 03/17/22 Stop Date: 03/31/22 Status: Ordered Dexilant 60 mg oral delayed release capsule See Instructions, Take 1 capsule by mouth once daily, # 90 capsule, 0 Refills, 03/14/22 14:26:00 EST, [facility], 163, cm, 02/27/22 9:06:00 EST, Height, 128.2, kg, 02/05/22 12:22:00 EST, Dry Weight Start Date: 03/14/22 Status: Ordered Diflucan 150 mg oral tablet 1 tablet = 150 mg, By Mouth, Once, # 1 tablet, 0 Refills, Soft Stop, 03/01/22 15:59:00 EST, Tablet,[facility], Partial fill upon patient request [...] tablet, 11 Refills, Maintenance, 08/18/21 16:40:00EDT, Tablet, [facility], Partial fill upon patient request [...] 05/04/22 9:46:00 EST, Route to Pharmacy Electronically, [id number], [facility], 163, cm, 05/01/22 14:15:00 EST, Height, 128.2, kg, 02/05/22... Start Date: 05/04/22 Status: Ordered ibuprofen 800 mg oral tablet 800 mg, 1, tablet, By Mouth, Every 8 hours, PRN, not to exceed 3200 mg/day with food or milk, # 40 tablet, Refills 0, Tot. Refills 0, Maintenance, Pain , Moderate, 02/08/22 8:05:00 EST, Route to Pharmacy Electronically, [facility], Partial... Start Date: 02/08/22 [...] Refills, Maintenance, 08/16/22 9:41:00 EDT, [id number], 163, cm, 05/01/22 14:15:00 EST, Height, 128.2, [...] Personnel Name: Macario DIEGO, Adela Marroquin Position: S ASSET PROTECTION DETECTIVE Member Role: Lifetime ASSET PROTECTION DETECTIVE Physician Address: Address: [address] [place] [address], [address] [facility] [place] [address]- Name: Nanci Melendez MD Position: [facility] Physician - Primary Care Member Role: PCP Address: Address: [address] [place] [address]- Care Team Related Persons Name: SEAN RITCHIE Address: [id number] Address: [address] [place] [address] Name: DERRELL RITCHIE Address: home [address] [facility] [address] [place] [address] Name: DERRELL RITCHIE Address: home [address] [facility] [address] [place] [address] Name: DERRELL RITCHIE Address: home [address] [facility] [address] [place] [address] Name: SHEBA CANO Address: home [address] [place] [address] Name: DAYANNA CANO Address: [address] [place] [address]
--- OUTSIDE RECORDS SUMMARY | 2024-02-22 11:49 | XMS_ITS | Continuity of Care Document ---
Author Organization [facility] [employer] [facility] Address [address] [place] [address], [address] [place] [address]- Care Team Providers Care Time Study Observer Name Role Phone Al DIEGO, Nanci Segovia Primary Care Physician Encounter [facility] Date(s): 10/19/21 - 10/26/21 [facility] [address] [facility], 4th Floor [place], [place] [address] Attending Physician: Raymundo DIEGO [OB], Neli Gunter Referring Physician: Emerson Eid MD Allergies, Adverse [...] [facility]# [id number] PT. TOLERATED INJ. WITHOUT COMPLICATIONS....CO 2Result Comment: [facility]# [id number] PT. TOLERATED INJ. WITHOUT COMPLICATIONS...CO 3Result Comment: [04/06/2016] pt. tolerated inj. without complications...CO 4Result Comment: [04/14/2015] Measles mumps rubella titer Medications Albuterol (Eqv-ProAir HFA) 90 mcg/inh inhalation aerosol See Instructions, INHALE 2 PUFFS BY MOUTH 4 TIMES DAILY NEEDED FOR WHEEZING, # 9 Gm, 6 Refills, 08/17/21 9:51:00 EDT, [facility], [facility], INHALE 2 PUFFS BY MOUTH 4 TIMES DAILY NEEDED FORWHEEZING, 162, cm, 08/03/21 16:59:00 EDT, Height, 1... Start Date: 08/17/21 Status: Ordered albuterol 0.083% inhalation solution 3 mL = 2.5 mg, Inhalation, Every 6 hours, PRN for wheezing, # 100 each, 5 Refills, Maintenance, 08/17/21 9:51:00 EDT, Solution, [facility], replaces previous Rx for albuterol-ipatropium [...] once daily, # 90 capsule, 1 Refills, [facility], 162, cm, 09/16/21 15:34:00 EDT, [...] tablet, 11 Refills, Maintenance, 08/18/21 16:40:00EDT, Tablet, [facility], Partial fill [...] 08/17/21 9:51:00 EDT, Route to Pharmacy Electronically, [id number], [facility], 162, cm, 08/03/21 16:59:00 EDT, Height, 110, kg, 08/03/21 1... Start Date: 08/17/21 Status: Ordered metFORMIN 500 mg oral tablet, extended release See Instructions, take 1 tablet po w/dinner x1 wk, then increase to 2 tablets x 1-2 wks, then increase to 3 tablets 1-2 wks,then 4 tabs with dinner every day., # 120 tablet, 11 Refills, Maintenance, 03/16/21 11:27:00 EST, [facility], 162, c... Start Date: 03/16/21 [...] oldest [Reference Range]: 1 Height 162 cm (10/19/21 11:24 AM) Weight 110.86 kg (10/19/21 11:24 AM) Body Mass Index [18.5-24.99] 42.24 *>HHI* (10/19/21 11:24 AM) Blood Pressure [90-138/55-84 mm Hg] 111/ 67mm Hg (10/19/21 11:24 AM) Blood pressure sites Arm, right (10/19/21 11:24 AM) Weight Obtained Via Standing scale (10/19/21 11:24 AM) Social History Social History Type Response Smoking Status Never smoker; Tobacc o user in household: No entered on: 07/02/15 Sex
--- OUTSIDE RECORDS SUMMARY | 2024-02-22 11:49 | XMS_ITS | Continuity of Care Document ---
Author Organization [facility] e Medicine Address [address] [facility], 4t [address] [place] [address]- Care Team Providers Care Boiler Coverer Name Role Phone Nanci Melendez MD Primary Care Physician Encounter [facility] Date(s): 03/20/20 - 03/27/20 [facility] Reproductive Medicine [address] [facility], 4th [address] [place] [id number] Attending Physician: Not on Staff, Attending MD [...] Recor ded 1Result Comment: [facility]# [id number] PT. TOLERATED INJ. WITHOUT COMPLICATIONS....CO 2Result Comment: [facility]# [id number] PT. TOLERATED INJ. WITHOUT COMPLICATIONS...CO 3Result Comment: [04/06/2016] pt. tolerated inj. without complications...CO 4Result Comment: [04/14/2015] Measles mumps rubella titer Medications Advair Diskus 500 mcg-50 mcg inhalation powder 1, puffs, Inhalation, 2 times a day, # 1 each, Refills 12, Tot. Refills 12, Maintenance, 12/24/19 13:40:00 EDT, Route to Pharmacy Electronically, [id number], [facility], 161, cm, 06/12/19 8:56:00 EDT, Height, 106,... Start Date: 12/24/19 Status: Ordered albuterol 0.083% inhalation solution 3 mL = 2.5 mg, Inhalation, Every 6 hours, PRN for wheezing, # 60 each, 11 Refills, Maintenance, 12/24/19 13:40:00 EDT, Solution, [facility], 161, cm, 06/12/19 8:56:00 [...] Maintenance, 12/24/19 13:41:00 EDT, ECCapsule, [facility], 161, cm, 06/12/19 8:56:00 EDT, Height, 106, kg, 09/11/18 13:37:00 EDT, Dry Weight Start Date: 12/24/19 Status: Ordered diclofenac sodium 75 mg oral delayed release tablet 1 tablet = 75 mg, By Mouth, 2 times a day, PRN for pain, TAKE WITH FOOD, # 28 tablet, 1 Refills, Maintenance, 12/16/19 9:22:00 EDT, Tablet, [facility], 161, cm, 06/12/19 8:56:00 [...] Refills, Maintenance, 02/09/20 17:27:00 EST, [facility], 161, cm, 06/12/19 8:56:00 [...] Refills, Maintenance, 02/10/20 14:25:00 EST, [facility], 161, c... Start Date: [...] Refills, Maintenance, 12/24/19 13:58:00 EDT, [facility], 161, cm, 208:56:00 EDT, [...] 13:40:00 EDT, Inhaler, Route to Pharmacy Electronically, [id number],[facility], 161, cm, 06/12/19 8:56:00 ED... Start Date: 12/24/19 Status: Ordered ProAir HFA 90 mcg/inh inhalation aerosol with adapter 2, puffs, Inhalation, 4 times a day, PRN, # 2 each, Refills 5, Tot. Refills 5, Maintenance, 05/19/19 15:55:00 EST, Aerosol, Route to Pharmacy Electronically, [id number], [facility], 161, cm, 01/20/19 11:38:00 [...]
--- OUTSIDE RECORDS SUMMARY | 2024-02-22 11:49 | XMS_ITS | Continuity of Care Document ---
Author Organization [facility] e Medicine Address Unknown Care Team Providers Care Ceramic Research Engineer Name Role Phone Nanci Melendez MD Primary Care Physician Encounter [facility] Date(s): 02/21/21 - 04/15/21 [facility] Reproductive Medicine Attending Physician: Jalyn Cabrera [...] ded 1Result Comment: [facility]# [id number] PT. TOLERATED INJ. WITHOUT COMPLICATIONS....CO 2Result Comment: [facility]# [id number] PT. TOLERATED INJ. WITHOUT COMPLICATIONS...CO 3Result Comment: [...] Gm, 10 Refills, Maintenance, 06/07/20 14:34:00 EST, [facility], 50, INHALE 2 PUFFS BY MOUTH 4 TIMES DAILY NEEDED FORWHEEZING, 161, cm, 02/10/20 14:26:00 EST, Height, 1... Start Date: 06/07/20 Status: Ordered albuterol 0.083% inhalation solution 3 mL = 2.5 mg, Inhalation, Every 6 hours, PRN for wheezing, # 25 each, 0 Refills, Maintenance, 04/04/21 12:33:00 EST, Solution, [facility], replaces previous Rx for albuterol-ipatropium solution, 162, cm, 03/10/21 14:17:00 EST, Height, 105.... Start Date: 04/04/21 Status: Ordered albuterol-ipratropium 3 mg-0.5 mg/3 ml inhalation solution 3 mL, Neb, 4 times a day, PRN shortness of breath, # 180 mL, 2 Refills, Maintenance, 04/04/21 8:55:00 EST, Solution, [facility], 3 mL Neb 4 times a day,PRN:shortness of breath, 162, cm, 03/10/21 14:17:00 EST, Height, 105.2, kg, 02/12/21 17:... Start Date: 04/04/21 Status: Ordered Apri 0.15 mg-0.03 mg oral tablet 1 tablet, By Mouth, Daily, start first tablet today, # 1 pack/packet, 3 Refills, Maintenance, 12/09/20 13:48:00 EDT, [facility], Partial fill upon [...] 0 Refills, Maintenance, 02/11/21 12:37:00 EST, ECCapsule, [facility], 163, cm, 01/01/21 10:10:00 EDT, Height Start Date: 02/11/21 Status: Ordered doxycycline hyclate 100 mg oral tablet 1 tablet = 100 mg, By Mouth, 2 times a day, # 28 tablet, 5 Refills, Maintenance, 12/31/20 8:23:00 EDT, [facility], Partial fill upon patient [...] each, Refills 5, Route to Pharmacy Electronically, [id number], [facility], 163, cm, 01/01/21 10:10:00 EDT, Height Start Date: 01/28/21 Status: Ordered Gonal-F 1050 units subcutaneous injection = 150 International_Units, Subcutaneous Injection, Daily, # 2 kit, 5 Refills, Maintenance, 218:23:00 EDT, [facility], Partial fill upon patient [...] tablet, 11 Refills, Maintenance, 03/16/21 11:27:00 EST, [facility], 162, c... Start [...] each, 11 Refills, Maintenance, 06/18/20 9:35:00 EDT, [facility], 161, cm, 219:18:00 EDT, Height, 106, kg, 09/11/18 13:37:00 EDT... Start Date: 06/18/20 Status: Ordered oxyCODONE 5 mg oral tablet 5 mg, 1, tablet, By Mouth, Every 6 hours, PRN, # 8 tablet, Refills 0, Tot. Refills 0, Maintenance, Pain , Mild, 01/18/21 9:22:00 EDT, Route to Pharmacy Electronically, [facility], Partial fill upon [...] 04/25/21 8:56:00 EST, 04/04/21 8:56:00 EST, Tablet, [facility], Pa... Start Date: 04/04/21 Stop Date: 04/25/21 Status: Ordered Pregnyl 93743 u injectable powder for injection = 1,000 [...] Daily, # 30 mL, 5 Refills, Maintenance, 11/04/21 11:55:00EDT, [facility], Partial fill upon patient request if the prescription is for a schedule II opioid drug., 163, cm, 01/01/21 10:10:00 E... Start Date: 02/03/21 Status: Ordered Prometrium 200 mg oral capsule See Instructions, vaginally 3 times a day, # 90 tablet, 5 Refills, Maintenance, 12/31/20 8:22:00 EDT, [facility], Partial fill upon patient request if the prescription is for a schedule II opioid drug., 161, cm, 10/12/20 10:38:00 EDT,... Start Date: 12/31/20 Status: Ordered Provera 10 mg oral tablet 10 mg, 1, tablet, By Mouth, Daily, # 10 tablet, Refills 0, Tot. Refills 0, Maintenance, 04/04/21 10:58:00 EST, Route to Pharmacy Electronically, [facility], Partial fill upon [...] 01/18/21 9:22:00 EDT, Route to Pharmacy Electronically, [facility], Partial fill upon patient request [...] patch, 5 Refills, Maintenance, 12/31/20 8:23:00 EDT, [facility], Partial fill upon patient request if the prescription is for a schedule II opio... Start Date: 12/31/20 Status: Ordered yes yes, See Instructions, # 2 each, Refills 5, Tot. Refills 5, Maintenance, [place] Capped Insulin Syringe for lupron administration, 12/31/20 [...]
--- OUTSIDE RECORDS SUMMARY | 2024-02-22 11:49 | XMS_ITS | Continuity of Care Document ---
Author Organization [facility] Address [address] [place] [address]- Care Team Providers Care Audio Video Repairer Name Role Phone Nanci Melendez MD Primary Care Physician [phone] Encounter [facility] Date(s): 04/22/20 - 04/29/20 [facility] [address] [place], [place] [address] Encounter Diagnosis Neck nodule(Discharge Diagnosis) - 04/22/20 Attending Physician: Flavia Rey MD Referring Physician: [...] [facility]# [id number] PT. TOLERATED INJ. WITHOUT COMPLICATIONS....CO 2Result Comment: [facility]# [id number] PT. TOLERATED INJ. WITHOUT COMPLICATIONS...CO 3Result Comment: [04/06/2016] pt. tolerated inj. without complications...CO 4Result Comment: [04/14/2015] Measles mumps rubella titer Medications Advair Diskus 500 mcg-50 mcg inhalation powder 1, puffs, Inhalation, 2 times a day, # 1 each, Refills 12, Tot. Refills 12, Maintenance, 12/24/19 13:40:00 EDT, Route to Pharmacy Electronically, [id number], [facility], 161, cm, 06/12/19 8:56:00 EDT, Height, 106,... Start Date: 12/24/19 Status: Ordered albuterol 0.083% inhalation solution 3 mL = 2.5 mg, Inhalation, Every 6 hours, PRN for wheezing, # 60 each, 11 Refills, Maintenance, 12/24/19 13:40:00 EDT, Solution, [facility], 161, cm, 06/12/19 [...] 3 Refills, Maintenance, 12/24/19 13:41:00 EDT, ECCapsule, [facility], 161, cm, 06/12/19 8:56:00 EDT, Height, 106, kg, 09/11/18 13:37:00 EDT, Dry Weight Start Date: 12/24/19 Status: Ordered diclofenac sodium 75 mg oral delayed release tablet 1 tablet = 75 mg, By Mouth, 2 times a day, PRN for pain, TAKE WITH FOOD, # 28 tablet, 1 Refills, Maintenance, 12/16/19 9:22:00 EDT, Tablet, [facility], 161, cm, 06/12/19 [...] tablet, 3 Refills, Maintenance, 02/09/20 17:27:00 EST, [facility], 161, cm, 06/12/19 [...] tablet, 11 Refills, Maintenance, 02/10/20 14:25:00 EST, [facility], 161, c... Start [...] each, 5 Refills, Maintenance, 12/24/19 13:58:00 EDT, [facility], 161, cm, 208:56:00 [...] 13:40:00 EDT, Inhaler, Route to Pharmacy Electronically, [id number],[facility], 161, cm, 06/12/19 8:56:00 ED... Start Date: 12/24/19 Status: Ordered ProAir HFA 90 mcg/inh inhalation aerosol with adapter 2, puffs, Inhalation, 4 times a day, PRN, # 2 each, Refills 5, Tot. Refills 5, Maintenance, 05/19/19 15:55:00 EST, Aerosol, Route to Pharmacy Electronically, [id number], [facility], 161, cm, 01/20/19 [...] Diagnosis Diagnosis Type Effective Dates Health Status Clini natasha Service Informant Neck nodule Discharge Diagnosis 04/22/20 Social History Social History Type Response Smoking Status Never smoker; Tobacc o user in household: No entered on: 07/02/15 Sex
--- OUTSIDE RECORDS SUMMARY | 2024-02-22 11:49 | XMS_ITS | Continuity of Care Document ---
Author Organization [facility] Address [address] [facility], 4t [address] [place] [address]- Care Team Providers Care Power Distribution Engineer Name Role Phone Al DIEGO, Nanci Segovia Primary Care Physician Encounter [facility] Date(s): 06/03/20 - 07/03/20 [facility] Reproductive Medicine [address] [place] [address], 4th [address] [place] [id number] Allergies, Adverse Reactions, Alerts Substance Reaction [...] ded 1Result Comment: [facility]# [id number] PT. TOLERATED INJ. WITHOUT COMPLICATIONS....CO 2Result Comment: [facility]# [id number] PT. TOLERATED INJ. WITHOUT COMPLICATIONS...CO 3Result Comment: [04/06/2016] pt. tolerated inj. without complications...CO 4Result Comment: [04/14/2015] Measles mumps rubella titer Medications Advair Diskus 500 mcg-50 mcg inhalation powder 1, puffs, Inhalation, 2 times a day, # 1 each, Refills 12, Tot. Refills 12, Maintenance, 12/24/19 13:40:00 EDT, Route to Pharmacy Electronically, [id number], [facility], 161, cm, 06/12/19 8:56:00 EDT, Height, 106,... Start Date: 12/24/19 Status: Ordered Albuterol (Eqv-ProAir HFA) 90 mcg/inh inhalation aerosol 2 puffs, Inhalation, 4 times a day, PRN NEEDED FOR WHEEZING, # 18 Gm, 10 Refills, Maintenance, 06/07/20 14:34:00 EST, [facility], 50, INHALE 2 PUFFS BY MOUTH 4 TIMES DAILY NEEDED FORWHEEZING, 161, cm, 02/10/20 14:26:00 EST, Height, 1... Start Date: 06/07/20 Status: Ordered albuterol-ipratropium 3 mg-0.5 mg/3 ml inhalation solution 3 mL, Neb, 4 times a day, PRN shortness of breath, # 180 mL, 11 Refills, Maintenance, 06/18/20 9:36:00 EDT, Solution, [facility], 3 mL Neb 4 [...] tablet, 3 Refills, Maintenance, 06/08/20 8:28:00 EST, [facility], 161, cm, 02/10/20 14:26:00 EST, [...] each, 11 Refills, Maintenance, 06/18/20 9:35:00 EDT, [facility], 161, cm, 219:18:00 EDT, [...]
--- OUTSIDE RECORDS SUMMARY | 2024-02-22 11:49 | XMS_ITS | Continuity of Care Document ---
Author Organization [facility] Address [address] [place] [address]- Care Team Providers Care Front Services Agent Name Role Phone Nanci Melendez MD Primary Care Physician Encounter [facility] [place] Date(s): 05/21/23 - 05/28/23 [facility] [address] [place], [place] [address] Encounter Diagnosis Asthma exacerbation(Discharge Diagnosis) - 05/21/23 Urinary incontinence(Discharge Diagnosis) - 05/21/23 Nocturnal enuresis(Discharge Diagnosis) - 05/21/23 Attending Physician: Flavia Rey MD Allergies, Adverse Reactions, Alerts Substance Reaction [...] Virus Vaccine 11/21/89 Recor ded 1Result Comment: [facility]# [id number] PT. TOLERATED INJ. WITHOUT COMPLICATIONS....CO 2Result Comment: [facility]# [id number] PT. TOLERATED INJ. WITHOUT COMPLICATIONS...CO 3Result Comment: [04/06/2016] pt. tolerated inj. without complications...CO 4Result Comment: [04/14/2015] Measles mumps rubella titer Medications acetaminophen 325 mg oral tablet 650 mg, By Mouth, Every 4 hours, PRN, not to exceed 4000 mg/day, # 60 tablet, Refills 0, Tot. Refills 0, Maintenance, Pain , Mild, 02/08/22 8:05:00 EST, Route to Pharmacy Electronically, [facility] 1967, Partial fill upon patient request if the... Start Date: 02/08/22 Status: Ordered Albuterol (Eqv-ProAir HFA) 90 mcg/inh inhalation aerosol See Instructions, INHALE 2 PUFFS BY MOUTH 4 TIMES DAILY NEEDED FOR WHEEZING, # 9 Gm, 6 Refills, 08/17/21 9:51:00 EDT, [facility] 1967, 25, INHALE 2 PUFFS [...] mL, 0 Refills, Maintenance, 03/17/22 15:45:00 EST, [facility], Partial fill upon patient request if the prescription is for a schedule II opioid drug., 163, cm, 03/17/22... Start Date: 03/17/22 Stop Date: 03/31/22 Status: Ordered Dexilant 60 mg oral delayed release capsule See Instructions, Take 1 capsule by mouth once daily, # 90 capsule, 0 Refills, 03/14/22 14:26:00 EST, [facility], 163, cm, 02/27/22 9:06:00 EST, Height, 128.2, kg, 02/05/22 12:22:00 EST, Dry Weight Start Date: 03/14/22 Status: Ordered Diflucan 150 mg oral tablet 1 tablet = 150 mg, By Mouth, Once, # 1 tablet, 0 Refills, Soft Stop, 03/01/22 15:59:00 EST, Tablet,[facility] 1967, Partial fill upon patient request [...] tablet, 11 Refills, Maintenance, 08/18/21 16:40:00EDT, Tablet, [facility] 1966, Partial fill upon patient request [...] 03/12/23 11:30:00 EST, Route to Pharmacy Electronically, [id number], [facility]/pharmacy #[id number], 163, cm, 03/02/23 [...] 08/16/22 9:41:00 EDT, [id number], 163, cm, 05/01/22 14:15:00 EST, Height, 128.2, kg, 02/05/22 12:22:00 EST, Dry Weight Start Date: 08/16/22 Status: Ordered ondansetron 4 mg oral tablet See Instructions, TAKE 1 TABLET BY MOUTH EVERY 8 HOURS NEEDED FOR NAUSEA AND VOMITING FOR 5 DAYS, # 15 each, 11 Refills, Maintenance, 06/19/22 15:15:00 EDT, [facility]/pharmacy #1130, 163, cm, 05/01/22 14:15:00 EST, Height, [...] Clinical Service Informant Asthma exacerbation Discharge Diagnosis 05/21/23 Urinary incontinence Discharge Diagnosis 05/21/23 Nocturnal enuresis Discharge Diagnosis 05/21/23 Social History Social History Type Response Smoking Status Never smoker; Tobacc o user in household: No entered on: 07/02/15 Sex Patient Care team information Care Team Personnel Name: Macario DIEGO, Adela Marroquin Position: [facility] INTERNET MARKETING STRATEGIST MD Member Role: [employer] INTERNET MARKETING STRATEGIST Physician Address: Address: [address] [place] [address], [address] [place] [address]- Name: Nanci Melendez MD Position: [facility] Physician - Primary Care Member Role: PCP Address: Address: [address] [place] [address]- Care Team Related Persons Name: SEAN RITCHIE Address: [address] Address: home [address] [place] [address] Name: DERRELL RITCHIE Address: home [address] [place] [address] Name: DERRELL RITCHIE Address: home [address] [facility] [address] [address] [address] [place] [address] Name: DERRELL RITCHIE Address: home [address] [facility] [address] [facility] [address] [place] [address] Name: SHEBA CANO Address: home [address] [place] [address] Name: DAYANNA CANO Address: home [address] [place] [address]
--- OUTSIDE RECORDS SUMMARY | 2024-02-22 11:49 | XMS_ITS | Continuity of Care Document ---
Author Organization [facility] Address [address], [address] [place] [address]- Care Team Providers Care Pre Billing Specialist Name Role Phone Al DIEGO, Nanci Segovia Primary Care Physician En[place] [facility] [place] Date(s): 01/31/21 - 03/02/21 [facility] [address], [address]th [address] [place], [place] [address] Allergies, Adverse Reactions, Alerts Substance Reaction [...] 1Result Comment: [facility]# [id number] PT. TOLERATED INJ. WITHOUT COMPLICATIONS....CO 2Result Comment: [facility]# [id number] PT. TOLERATED INJ. WITHOUT COMPLICATIONS...CO 3Result Comment: [...] Gm, 10 Refills, Maintenance, 06/07/20 14:34:00 EST, [facility] 1967, 50, INHALE 2 PUFFS BY MOUTH 4 TIMES DAILY NEEDED FORWHEEZING, 161, cm, 02/10/20 14:26:00 EST, Height, 1... Start Date: 06/07/20 Status: Ordered albuterol-ipratropium 3 mg-0.5 mg/3 ml inhalation solution 3 mL, Neb, 4 times a day, PRN shortness of breath, # 180 mL, 11 Refills, Maintenance, 06/18/20 9:36:00 EDT, Solution, [facility] 1967, 3 mL Neb 4 times a day,PRN:shortness of breath, 161, cm, 06/18/20 9:18:00 EDT, Height, 106, kg, 09/11/18 13:37... Start Date: 06/18/20 Status: Ordered Apri 0.15 mg-0.03 mg oral tablet 1 tablet, By Mouth, Daily, start first tablet today, # 1 pack/packet, 3 Refills, Maintenance, 12/09/20 13:48:00 EDT, [facility] 1967, Partial fill upon [...] 0 Refills, Maintenance, 02/11/21 12:37:00 EST, ECCapsule, [facility], 163, cm, 01/01/21 10:10:00 EDT, Height Start Date: 02/11/21 Status: Ordered doxycycline hyclate 100 mg oral tablet 1 tablet = 100 mg, By Mouth, 2 times a day, # 28 tablet, 5 Refills, Maintenance, 12/31/20 8:23:00 EDT, [facility], [...] each, Refills 5, Route to Pharmacy Electronically, [id number], [facility], 163, cm, 01/01/21 10:10:00 EDT, Height Start Date: 01/28/21 Status: Ordered Gonal-F 1050 units subcutaneous injection = 150 International_Units, Subcutaneous Injection, Daily, # 2 kit, 5 Refills, Maintenance, :23:00 EDT, [facility], [...] tablet, 11 Refills, Maintenance, 02/10/20 14:25:00 EST, [facility], 161, c... Start [...] each, 11 Refills, Maintenance, 06/18/20 9:35:00 EDT, [facility], 161, cm, 219:18:00 [...] for... Start Date: 01/18/21 Status: Ordered Pregnyl 44108 u injectable powder for injection = 1,000 units, Intramuscular, Once, For use as trigger shot. Use 3 mL of diluent to reconstitute powder. Draw and administer 0.3 mL of reconsituted pregnyl for total dose of 1000 units., # 1 kit, 5 Refills, Soft Stop, 12/31/20 8:24:00 EDT, [facility]... Start Date: 12/31/20 Status: Ordered Multivitamins By Mouth, Daily, 0 Refills, Maintenance, 06/05/18 11:27:06 EST Start Date: 06/05/18 Status: Ordered progesterone 50 mg/mL intramuscular solution 50mg/ml 1 ml (sesame oil), Intramuscular, Daily, # 30 mL, 5 Refills, Maintenance, 02/03/21 11:55:00EDT, [facility], Partial fill upon patient request if the prescription is for a schedule II opioid drug., 163, cm, 01/01/21 10:10:00 E... Start Date: 02/03/21 Status: Ordered Prometrium 200 mg oral capsule See Instructions, vaginally 3 times a day, # 90 tablet, 5 Refills, Maintenance, 12/31/20 8:22:00 EDT, [facility], Partial fill upon patient request [...] 01/18/21 9:22:00 EDT, Route to Pharmacy Electronically, [facility] 1966, Partial fill upon [...] patch, 5 Refills, Maintenance, 12/31/20 8:23:00 EDT, [facility], Partial fill upon patient request if the prescription is for a schedule II opio... Start Date: 12/31/20 Status: Ordered yes yes, See Instructions, # 2 each, Refills 5, Tot. Refills 5, Maintenance, [place] Capped Insulin Syringe for lupron administration, 12/31/20 [...]
--- OUTSIDE RECORDS SUMMARY | 2024-02-22 11:49 | XMS_ITS | Continuity of Care Document ---
Author Organization [facility] Address Unknown Care Team Providers Care Shovel Logger Name Role Phone Nanci Melendez MD Primary Care Physician Encounter [facility] [place] Date(s): 01/12/21 - 01/19/21 [facility] Attending Physician: Cheryl Beauchamp MD [...] ded 1Result Comment: [facility]# [id number] PT. TOLERATED INJ. WITHOUT COMPLICATIONS....CO 2Result Comment: [facility]# [id number] PT. TOLERATED INJ. WITHOUT COMPLICATIONS...CO 3Result Comment: [...] 12/24/19 13:40:00 EDT, Route to Pharmacy Electronically, [id number], [facility] 1967, 161, cm, 06/12/19 [...] 3 Refills, Maintenance, 12/24/19 13:41:00 EDT, ECCapsule, [facility], 161, cm, 06/12/19 8:56:00 EDT, Height, 106, kg, 09/11/18 13:37:00 EDT, Dry Weight Start Date: 12/24/19 Status: Ordered doxycycline hyclate 100 mg oral tablet 1 tablet = 100 mg, By Mouth, 2 times a day, # 28 tablet, 5 Refills, Maintenance, 12/31/20 8:23:00 EDT, [facility], Partial fill upon patient request [...] 02/20/21 8:26:00 EST, 12/31/20 8:23:00 EDT, Solution, [facility], Partial fill upon patient request if theprescription is for a schedule II opioid drug., 161... Start Date: 12/31/20 Stop Date: 02/20/21 Status: Ordered Gonal-F 1050 units subcutaneous injection = 150 International_Units, Subcutaneous Injection, Daily, # 2 kit, 5 Refills, Maintenance, 218:23:00 EDT, [facility], Partial fill upon patient request [...] 02/20/21 8:26:00 EST, 12/31/20 8:22:00 EDT, Powder, [facility], Partial fill upon patient [...] for... Start Date: 01/18/21 Status: Ordered Pregnyl 08995 u injectable powder for injection = 1,000 units, Intramuscular, Once, For use as trigger shot. Use 3 mL of diluent to reconstitute powder. Draw and administer 0.3 mL of reconsituted pregnyl for total dose of 1000 units., # 1 kit, 5 Refills, Soft Stop, 12/31/20 8:24:00 EDT, [facility]... Start Date: 12/31/20 Status: Ordered Multivitamins By Mouth, Daily, 0 Refills, Maintenance, 06/05/18 11:27:06 EST Start Date: 06/05/18 Status: Ordered Prometrium 200 mg oral capsule See Instructions, vaginally 3 times a day, # 90 tablet, 5 Refills, Maintenance, 12/31/20 8:22:00 EDT, [facility], Partial fill upon patient request [...] to Pharmacy Electronically, [facility] 1966, Partial fill upon [...] patch, 5 Refills, Maintenance, 12/31/20 8:23:00 EDT, [facility], Partial fill upon patient request if the prescription is for a schedule II opio... Start Date: 12/31/20 Status: Ordered yes yes, See Instructions, # 2 each, Refills 5, Tot. Refills 5, Maintenance, [place] Capped Insulin Syringe for lupron administration, 12/31/20 [...]
--- OUTSIDE RECORDS SUMMARY | 2024-02-22 11:49 | XMS_ITS | Continuity of Care Document ---
Author Organization [facility] Address [address] [place] [address]- Care Team Providers Care Air Value Tester Name Role Phone Nanci Melendez MD Primary Care Physician [phone] Encounter [facility] [place] Date(s): 10/08/20 - 02/03/21 [facility] [address] [place] [address]- Attending Physician: Viki Ortega MD Admitting Physician: iVki Ortega MD Referring Physician: Nanci Melendez MD Allergies, [...] 1Result Comment: [facility]# [id number] PT. TOLERATED INJ. WITHOUT COMPLICATIONS....CO 2Result Comment: [facility]# [id number] PT. TOLERATED INJ. WITHOUT COMPLICATIONS...CO 3Result Comment: [...] Gm, 10 Refills, Maintenance, 06/07/20 14:34:00 EST, [facility], 50, INHALE 2 PUFFS BY MOUTH 4 TIMES DAILY NEEDED FORWHEEZING, 161, cm, 02/10/20 14:26:00 EST, Height, 1... Start Date: 06/07/20 Status: Ordered albuterol-ipratropium 3 mg-0.5 mg/3 ml inhalation solution 3 mL, Neb, 4 times a day, PRN shortness of breath, # 180 mL, 11 Refills, Maintenance, 06/18/20 9:36:00 EDT, Solution, [facility], 3 mL Neb 4 times a day,PRN:shortness of breath, 161, cm, 06/18/20 9:18:00 EDT, Height, 106, kg, 09/11/18 13:37... Start Date: 06/18/20 Status: Ordered Apri 0.15 mg-0.03 mg oral tablet 1 tablet, By Mouth, Daily, start first tablet today, # 1 pack/packet, 3 Refills, Maintenance, 12/09/20 13:48:00 EDT, [facility], Partial [...] 3 Refills, Maintenance, 12/24/19 13:41:00 EDT, ECCapsule, [facility], 161, cm, 06/12/19 8:56:00 [...] each, Refills 5, Route to Pharmacy Electronically, [id number], [facility], 163, [...] 2 kit, 5 Refills, Maintenance, :23:00 EDT, [facility], [...] 8:26:00 EST, 12/31/20 8:22:00 EDT, Powder, [facility], Partial fill upon patient requestif [...] tablet, 11 Refills, Maintenance, 02/10/20 14:25:00 EST, [facility], 161, c... Start Date: [...] [facility], 161, cm, 219:18:00 EDT, Height, 106, kg, 09/11/18 13:37:00 EDT... Start Date: 06/18/20 Status: Ordered oxyCODONE 5 mg oral tablet 5 mg, 1, tablet, By Mouth, Every 6 hours, PRN, # 8 tablet, Refills 0, Tot. Refills 0, Maintenance, Pain , Mild, 01/18/21 9:22:00 EDT, Route to Pharmacy Electronically, [facility] 1967, Partial fill upon patient request if the prescription is for... Start Date: 01/18/21 Status: Ordered Pregnyl 98470 u injectable powder for injection = 1,000 [...] 30 mL, 5 Refills, Maintenance, 02/03/21 11:55:00EDT, [facility], Partial fill upon patient request if the prescription is for a schedule II opioid drug., 163, cm, 01/01/21 10:10:00 E... Start Date: 02/03/21 Status: Ordered Prometrium 200 mg oral capsule See Instructions, vaginally 3 times a day, # 90 tablet, 5 Refills, Maintenance, 12/31/20 8:22:00 EDT, [facility], Partial fill upon patient [...] EDT, Route to Pharmacy Electronically, [facility] 1966, Partial fill upon patient request if [...] patch, 5 Refills, Maintenance, 12/31/20 8:23:00 EDT, [facility], Partial fill upon patient request if the prescription is for a schedule II opio... Start Date: 12/31/20 Status: Ordered yes yes, See Instructions, # 2 each, Refills 5, Tot. Refills 5, Maintenance, [place] Capped Insulin Syringe for lupron administration, 12/31/20 8:22:00 EDT, Supply, 161, cm, 10/12/20 10:38:00 EDT, Height Start Date: 12/31/20 Status: Ordered yes yes, See Instructions, # 2 each, Refills 0, Tot. Refills 0, Maintenance, 27g /2 needle for use with administering pregnyl trigger [...]
--- OUTSIDE RECORDS SUMMARY | 2024-02-22 11:49 | XMS_ITS | Continuity of Care Document ---
Author Organization [facility] Address [address] [place] [address]- Care Team Providers Care Sand Molder Name Role Phone Al DIEGO, Nanci Segovia Primary Care Physician Encounter [facility] Date(s): 10/19/23 - 11/18/23 [facility] [address] [place] [address]- Allergies, Adverse Reactions, Alerts Substance Reaction Severity [...] [facility]# [id number] PT. TOLERATED INJ. WITHOUT COMPLICATIONS....CO 2Result Comment: [facility]# [id number] PT. TOLERATED INJ. WITHOUT COMPLICATIONS...CO 3Result Comment: [...] 90 capsule, 0 Refills, 03/14/22 14:26:00 EST, [facility] 1967, 163, cm, 02/27/22 9:06:00 EST, [...] tablet, 11 Refills, Maintenance, 08/18/21 16:40:00EDT, Tablet, [facility] 1967, Partial fill upon patient [...] 03/12/23 11:30:00 EST, Route to Pharmacy Electronically, [id number], [facility]/pharmacy #1130, 163, cm, 03/02/23 13:11:00 EST, Height, 128.2, kg, 02/05/22 1... 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, 08/30/18 17:26:09 EDT, Compound Start Date: 08/30/18 Status: Ordered norethindrone 0.35 mg oral tablet 1 tablet, By Mouth, Daily, # 84 tablet, 5 Refills, Maintenance, 08/16/22 9:41:00 EDT, [facility], 163, cm, 05/01/22 14:15:00 EST, Height, 128.2, kg, 02/05/22 12:22:00 EST, Dry Weight Start Date: 08/16/22 Status: Ordered ondansetron 4 mg oral tablet 1 tablet, By Mouth, Every 8 hours, PRN NEEDED FOR NAUSEA AND VOMITING FOR, # 15 tablet, 3 Refills, Maintenance, 09/14/23 16:11:00 EDT, [facility], 160, cm, 07/21/23 8:30:00 EDT, Height, 114, kg, 07/21/23 8:30:00 EDT, Dry Weight Start Date: 09/14/23 Stop Date: 09/19/23 Status: Ordered Multivitamins By Mouth, Daily, 0 Refills, Maintenance, 06/05/18 11:27:06 EST Start Date: 06/05/18 Status: Ordered Ventolin HFA 108 mcg/inh inhalation aerosol with adapter 2 puffs, Inhalation, Every 4 hours, PRN for wheezing, # 8 Gm, 5 Refills, Maintenance, 03/12/23 11:35:00 EST, Aerosol, [facility]/pharmacy #1130, Partial fill upon patient [...] Personnel Name: Macario DIEGO, Adela Marroquin Position: [facility] AIRPORT DRIVER MD Member Role: [employer] AIRPORT DRIVER Physician Address: Address: [address] [place] [address], [address] [place], [place] [address] Name: Nanci Melendez MD Position: [facility] Physician - Primary Care Member Role: PCP Address: Address: [address] [place] [address]- Name: Tammy Schuler Position: [facility] Outreach Member Role: [employer] Consulting Physician Care Team Related Persons Name: SEAN RITCHIE Address: [address] Address: home [address] [place] [address] [place] Name: DERRELL RITCHIE Address: [address] [place] [address] Name: DERRELL RITCHIE Address: home [address] [facility] [place] [address] Name: DERRELL RITCHIE Address: home [address] [facility] [address] [place] [address] Name: SHEBA CANO Address: home [address] [place] [address] Name: DAYANNA CANO Address: home [address] [place] [address]
--- OUTSIDE RECORDS SUMMARY | 2024-02-22 11:49 | XMS_ITS | Continuity of Care Document ---
Author Organization [facility] Address [address] [place] [address]- Care Team Providers Care License Registration Examiner Name Role Phone Nanci Melendez MD Primary Care Physician Encounter [facility] Date(s): 01/13/22 - 02/12/22 [email or web address] [address] [place], [place] [address] Allergies, Adverse Reactions, Alerts [...] 11/21/89 Recor ded 1Result Comment: [facility]# [id number] PT. TOLERATED INJ. WITHOUT COMPLICATIONS....CO 2Result Comment: [facility]# [id number] PT. TOLERATED INJ. WITHOUT COMPLICATIONS...CO 3Result Comment: [04/06/2016] pt. tolerated inj. without complications...CO 4Result Comment: [04/14/2015] Measles mumps rubella titer Medications acetaminophen 325 mg oral tablet 650 mg, By Mouth, Every 4 hours, PRN, not to exceed 4000 mg/day, # 60 tablet, Refills 0, Tot. Refills 0, Maintenance, Pain , Mild, 02/08/22 8:05:00 EST, Route to Pharmacy Electronically, [facility] 1966, Partial fill upon patient request if the... Start Date: 02/08/22 Status: Ordered Albuterol (Eqv-ProAir HFA) 90 mcg/inh inhalation aerosol See Instructions, INHALE 2 PUFFS BY MOUTH 4 TIMES DAILY NEEDED FOR WHEEZING, # 9 Gm, 6 Refills, 08/17/21 9:51:00 EDT, [facility], 25, INHALE 2 PUFFS BY MOUTH 4 TIMES DAILY NEEDED FORWHEEZING, 162, cm, 08/03/21 16:59:00 EDT, Height, 1... Start Date: 08/17/21 Status: Ordered albuterol 0.083% inhalation solution 3 mL = 2.5 mg, Inhalation, Every 6 hours, PRN for wheezing, # 100 each, 5 Refills, Maintenance, 08/17/21 9:51:00 EDT, Solution, [facility], replaces previous Rx for albuterol-ipatropium [...] once daily, # 90 capsule, 1 Refills, [facility], 162, cm, 09/16/21 15:34:00 EDT, [...] tablet, 11 Refills, Maintenance, 08/18/21 16:40:00EDT, Tablet, [facility] 1967, Partial fill upon patient [...] 08/17/21 9:51:00 EDT, Route to Pharmacy Electronically, [id number], [facility] 1967, 162, cm, 08/03/21 16:59:00 EDT, Height, 110, kg, 08/03/21 1... Start Date: 08/17/21 Status: Ordered ibuprofen 800 mg oral tablet 800 mg, 1, tablet, By Mouth, Every 8 hours, PRN, not to exceed 3200 mg/day with food or milk, # 40 tablet, Refills 0, Tot. Refills 0, Maintenance, Pain , Moderate, 02/08/22 8:05:00 EST, Route to Pharmacy Electronically, [facility] 1967, Partial... Start Date: 02/08/22 Status: [...] Team Personnel Name: Nanci Melendez MD Position: [facility] Primary Care Physician Member Role: PCP Address: Address: [address] [place] [address]- Care Team Related Persons Name: ERMA SEAN Address: [address] Address: [address] [place] [address] Name: DERRELL RITCHIE Address: home [address] [facility] [address] [place] [address] Name: DERRELL RITCHIE Address: home [address] [facility] [address] [place] [address] Name: DERRELL RITCHIE Address: home [address] [facility] [address] [place] [address] Name: SHEBA CANO Address: [address] [place] [address] Name: DAYANNA CANO Address: home [address] [place] [address]
--- OUTSIDE RECORDS SUMMARY | 2024-02-22 11:49 | XMS_ITS | Continuity of Care Document ---
Author Organization [facility] Susanenrique Santamaria nCIBDOs [facility] Address [address] [place] [address], [address], [place] [address]- Care Team Providers Care Real Estate Site Analyst Name Role Phone Al DIEGO, Nanci Segovia Primary Care Physician [place] [facility] [place](s): 12/24/19 - 01/23/20 [facility] [place]enders[place]enrique SosaCIBDOs [facility] [address] [facility] [place] [address]- [facility] Allergies, Adverse Reactions, Alerts Substance [...] 1Result Comment: [facility]# [id number] PT. TOLERATED INJ. WITHOUT COMPLICATIONS....CO 2Result Comment: [facility]# [id number] PT. TOLERATED INJ. WITHOUT COMPLICATIONS...CO 3Result Comment: [04/06/2016] pt. tolerated inj. without complications...CO 4Result Comment: [04/14/2015] Measles mumps rubella titer Medications Advair Diskus 500 mcg-50 mcg inhalation powder 1, puffs, Inhalation, 2 times a day, # 1 each, Refills 12, Tot. Refills 12, Maintenance, 12/24/19 13:40:00 EDT, Route to Pharmacy Electronically, [id number], [facility], 161, cm, 06/12/19 8:56:00 EDT, Height, 106,... Start Date: 12/24/19 Status: Ordered albuterol 0.083% inhalation solution 3 mL = 2.5 mg, Inhalation, Every 6 hours, PRN for wheezing, # 60 each, 11 Refills, Maintenance, 12/24/19 13:40:00 EDT, Solution, [facility], 161, cm, 06/12/19 8:56:00 EDT, [...] 3 Refills, Maintenance, 12/24/19 13:41:00 EDT, ECCapsule, [facility], 161, cm, 06/12/19 8:56:00 EDT, Height, 106, kg, 09/11/18 13:37:00 EDT, Dry Weight Start Date: 12/24/19 Status: Ordered diclofenac sodium 75 mg oral delayed release tablet 1 tablet = 75 mg, By Mouth, 2 times a day, PRN for pain, TAKE WITH FOOD, # 28 tablet, 1 Refills, Maintenance, 12/16/19 9:22:00 EDT, Tablet, [facility], 161, cm, 06/12/19 8:56:00 EDT, [...] each, 5 Refills, Maintenance, 12/24/19 13:58:00 EDT, [facility], 161, cm, :56:00 EDT, Height, [...] 15:55:00 EST, Aerosol, Route to Pharmacy Electronically, [id number], [facility], 161, cm, 01/20/19 11:38:00 EDT,... Start Date: 05/19/19 Status: Ordered ProAir HFA 90 mcg/inh inhalation aerosol with adapter 180 mcg, 2, puffs, Inhalation, 4 times a day, # 1 each, Refills 4, Tot. Refills 4, Maintenance, 12/24/19 13:40:00 EDT, Inhaler, Route to Pharmacy Electronically, [id number],[facility], 161, cm, 06/12/19 8:56:00 ED... [...]
--- OUTSIDE RECORDS SUMMARY | 2024-02-22 11:49 | XMS_ITS | Continuity of Care Document ---
Author Organization [facility] [place] [address] [facility] [place] [address]- Care Team Providers Care Feeder Driver Name Role Phone Nanci Melendez MD Primary Care Physician Encounter 04/27/20 - 05/04/20 [facility] [address], [address] [place] [address]- Attending Physician: Flavia Rey MD Admitting Physician: Flavia Rey MD Referring Physician: Flavia Rey MD Allergies, Adverse Reactions, [...] ded 1Result Comment: [facility]# [id number] PT. TOLERATED INJ. WITHOUT COMPLICATIONS....CO 2Result Comment: [facility]# [id number] PT. TOLERATED INJ. WITHOUT COMPLICATIONS...CO 3Result Comment: [04/06/2016] pt. tolerated inj. without complications...CO 4Result Comment: [04/14/2015] Measles mumps rubella titer Medications Advair Diskus 500 mcg-50 mcg inhalation powder 1, puffs, Inhalation, 2 times a day, # 1 each, Refills 12, Tot. Refills 12, Maintenance, 12/24/19 13:40:00 EDT, Route to Pharmacy Electronically, [id number], [facility], 161, cm, 06/12/19 8:56:00 EDT, Height, 106,... Start Date: 12/24/19 Status: Ordered albuterol 0.083% inhalation solution 3 mL = 2.5 mg, Inhalation, Every 6 hours, PRN for wheezing, # 60 each, 11 Refills, Maintenance, 12/24/19 13:40:00 EDT, Solution, [facility], 161, [...] capsule, 3 Refills, Maintenance, 12/24/19 13:41:00 EDT, ECCmaster, [facility], 161, cm, 06/12/19 8:56:00 EDT, Height, 106, kg, 09/11/18 13:37:00 EDT, Dry Weight Start Date: 12/24/19 Status: Ordered diclofenac sodium 75 mg oral delayed release tablet 1 tablet = 75 mg, By Mouth, 2 times a day, PRN for pain, TAKE WITH FOOD, # 28 tablet, 1 Refills, Maintenance, 12/16/19 9:22:00 EDT, Tablet, [facility], 161, [...] tablet, 3 Refills, Maintenance, 02/09/20 17:27:00 EST, [facility], [...] each, 5 Refills, Maintenance, 12/24/19 13:58:00 EDT, [facility], 161, cm, 208:56:00 EDT, [...] 13:40:00 EDT, Inhaler, Route to Pharmacy Electronically, [id number],[facility], 161, cm, 06/12/19 8:56:00 ED... Start Date: 12/24/19 Status: Ordered ProAir HFA 90 mcg/inh inhalation aerosol with adapter 2, puffs, Inhalation, 4 times a day, PRN, # 2 each, Refills 5, Tot. Refills 5, Maintenance, 05/19/19 15:55:00 EST, Aerosol, Route to Pharmacy Electronically, [id number], [facility], 161, cm, 01/20/19 11:38:00 [...]
--- OUTSIDE RECORDS SUMMARY | 2024-02-22 11:49 | XMS_ITS | Continuity of Care Document ---
Author Organization [facility] Address [address] [place] [address]- Care Team Providers Care Water [employer] Sewer Systems Supervisor Name Role Phone Nanci Melendez MD Primary Care Physician Encounter [facility] [place] Date(s): 08/01/21 - 08/08/21 [facility] [address] [place], [place] [address] Attending Physician: Flavia Rey MD Allergies, Adverse [...] Recor ded 1Result Comment: [facility]# [id number] PT. TOLERATED INJ. WITHOUT COMPLICATIONS....CO 2Result Comment: [facility]# [id number] PT. TOLERATED INJ. WITHOUT COMPLICATIONS...CO 3Result Comment: [...] Gm, 10 Refills, Maintenance, 06/07/20 14:34:00 EST, [facility], 50, INHALE 2 PUFFS BY MOUTH 4 TIMES DAILY NEEDED FORWHEEZING, 161, cm, 02/10/20 14:26:00 EST, Height, 1... Start Date: 06/07/20 Status: Ordered Albuterol (Eqv-ProAir HFA) 90 mcg/inh inhalation aerosol See Instructions, INHALE 2 PUFFS BY MOUTH 4 TIMES DAILY NEEDED FOR WHEEZING, # 9 Gm, 6 Refills, [facility], 25, INHALE 2 PUFFS BY MOUTH 4 TIMES DAILY NEEDED FOR WHEEZING, 162, cm, 05/03/21 9:55:00 EST, Height, 105.2, kg, 02/12/21 17:0... Start Date: 06/24/21 Status: Ordered albuterol 0.083% inhalation solution 3 mL = 2.5 mg, Inhalation, Every 6 hours, PRN for wheezing, # 100 each, 5 Refills, Maintenance, 06/24/21 12:33:00 EDT, Solution, [facility], replaces previous Rx for albuterol-ipatropium solution, 162, cm, 05/03/21 9:55:00 EST, Height, 105.... Start Date: 06/24/21 Status: Ordered amoxicillin 875 mg oral tablet 1 tablet = 875 mg, By Mouth, Every 12 hours, for 5 days, # 10 tablet, 0 Refills, Acute 08/09/21 17:07:00 EDT, 08/04/21 17:07:00 EDT, Tablet, [facility], [...] Maintenance, 02/11/21 12:37:00 EST, ECCapsule, [facility], 163, cm, 01/01/21 10:10:00 EDT, Height Start Date: 02/11/21 Status: Ordered Endometrin 100 mg vaginal insert = 100 mg, Vaginally, 3 times a day, to add on day of transfer, # 90 supp, 5 Refills, Maintenance, 04/28/21 9:20:00 EST, [facility] [...] each, Refills 5, Route to Pharmacy Electronically, [id number], [facility], 163, cm, 01/01/21 10:10:00 EDT, Height Start Date: 01/28/21 Status: Ordered metFORMIN 500 mg oral tablet, extended release See Instructions, take 1 tablet po w/dinner x1 wk, then increase to 2 tablets x 1-2 wks, then increase to 3 tablets 1-2 wks,then 4 tabs with dinner every day., # 120 tablet, 11 Refills, Maintenance, 03/16/21 11:27:00 EST, [facility], 162, c... Start [...] Refills, Maintenance, 06/18/20 9:35:00 EDT, [facility], 161, cm, :18:00 EDT, Height, 106, kg, 09/11/18 13:37:00 EDT... Start Date: 06/18/20 Status: Ordered Multivitamins By Mouth, Daily, 0 Refills, Maintenance, 06/05/18 11:27:06 EST Start Date: 06/05/18 Status: Ordered progesterone 50 mg/mL intramuscular solution 100mg/ml 2 ml (sesame oil), Intramuscular, Daily, # 60 mL, 5 Refills, Maintenance, 06/27/21 16:29:00 EDT, [facility] [...]
--- OUTSIDE RECORDS SUMMARY | 2024-02-22 11:49 | XMS_ITS | Continuity of Care Document ---
Author Organization [facility] Address [address] [place] [address]- Care Team Providers Care Correction Worker Name Role Phone Nanci Melendez MD Primary Care Physician Encounter [facility] [place] Date(s): 01/21/24 - 01/28/24 [facility] [address] [place] [address]- [place] Encounter Diagnosis Gastroparesis(Discharge Diagnosis) - 01/23/24 Presence of gastric pacemaker(Discharge Diagnosis) - 01/23/24 Severe obesity (BMI >= 40)(Discharge Diagnosis) - 01/23/24 GERD (gastroesophageal reflux disease)(Discharge Diagnosis) - 01/23/24 Attending Physician: Darwin Quintana MD Referring Physician: Nanci Melendez MD Allergies, [...] pt. tolerated inj. without complications...CO 2Result Comment: [facility]# [id number] PT. TOLERATED INJ. WITHOUT COMPLICATIONS....CO 3Result Comment: [facility]# [id number] PT. TOLERATED INJ. WITHOUT COMPLICATIONS...CO 4Result Comment: [04/14/2015] Measles mumps rubella titer Medications albuterol 0.083% inhalation solution 3 mL = 2.5 mg, Inhalation, Every 6 hours, PRN for wheezing, # 100 each, 5 Refills, Maintenance, 06/19/22 15:15:00 EDT, Solution, [facility]/pharmacy #[id number], replaces previous Rx for albuterol-ipatropium solution, 163, cm, 05/01/22 14:15:00 EST, Height, 128.2,... Start Date: 06/19/22 Status: Ordered Breo Ellipta 200 mcg-25 mcg/inh inhalation powder 1 puffs, Inhalation, Daily, # 1 each, 6 Refills, Maintenance, 12/28/23 13:38:00 EDT, Powder, [facility]/pharmacy #[id number], Partial fill upon patient [...] Refills, Maintenance, 12/28/23 13:34:00 EDT, ER Tablet, [facility]/pharmacy #[id number], Partial fill upon prabhu... Start Date: 12/28/23 Status: Ordered Dexilant 60 mg oral delayed release capsule See Instructions, Take 1 capsule by mouth once daily, # 90 capsule, 0 Refills, 03/14/22 14:26:00 EST, [facility], 163, cm, 02/27/22 9:06:00 [...] 5 Refills, Maintenance, 08/16/22 9:41:00 EDT, [id number], 163, cm, 05/01/22 14:15:00 EST, Height, 128.2, kg, 02/05/22 12:22:00 EST, Dry Weight Start Date: 08/16/22 Status: Ordered ondansetron 4 mg oral tablet 1 tablet, By Mouth, Every 8 hours, PRN NEEDED FOR NAUSEA AND VOMITING FOR, # 15 tablet, 3 Refills, Maintenance, 09/14/23 16:11:00 EDT, [id number], 160, cm, 07/21/23 8:30:00 EDT, Height, 114, [...] 5 Refills, Maintenance, 12/13/23 12:46:00 EDT, Aerosol, [facility]/pharmacy #[id number], Partial fill upon patient [...] Refills, Maintenance, 01/09/24 15:51:00 EDT, [id number], 30, INHALE 1 DOSE BY MOUTH TWICE [...] Effective Dates Health Status Clinical Service Informant Gastroparesis Discharge Diagnosis 01/23/24 Presence of gastric pacemaker Discharge Diagnosis 01/23/24 Severe obesity (BMI >= 40) Discharge Diagnosis 01/23/24 GERD (gastroesophageal reflux disease) Discharge Diagnosis 01/23/24 Vital Signs Most recent to oldest [Reference Range]: 1 Height 163 cm (01/21/24 10:36 AM) Weight 116.1 kg (01/21/24 10:36 AM) Oxygen Saturation [94-100 %] 100 % (01/21/24 10:36 AM) Pulse Rate [55-90 bpm] 71 bpm (01/21/24 10:36 AM) Body Mass Index [18.5-24.99 kg/m2] 43.7 kg/m2 *>HHI* (01/21/24 10:36 AM) Blood Pressure [90-138/55-84 mm Hg] 103/ 73mm Hg (01/21/24 10:36 AM) Mode of Delivery (Oxygen) Room air (01/21/24 10:36 AM) Blood pressure sites Arm, left (01/21/24 10:36 AM) Social History Social History Type Response Smoking Status Never smoker; Tobacc o user in household: No entered on: 07/02/15 Sex Note * Lizbeth Donohue: PERFORM Event Display: Patient Education/Instruction Authored Date: Ambulatory Adult Visit Summary [facility] [address] [place], [place] [address] [place] [address] Name: RAFA RITCHIE : 1990?? Visit: 01/21/2024 10:18?? Ambulatory Visit Instructions ?? Your Care Team Primary Care Provider Nanci Melendez MD? This Visit Provider Franco Gambino Vitals Signs Pulse Rate: 71 bpm Height: 163 cm Systolic Blood Pressure: 103 mm Hg Weight: 116.1 kg Diastolic Blood Pressure: 73 mm Hg Body Mass Index:??43.7 kg/m2??Critical Oxygen Saturation: 100 % Body surface area: 2.29 What to do next Scheduled Follow-Up Appointments 2023 4:00 PM EDT ?? With: Jese NGUYEN, Cedric Jordan Where: [facility] General Surgery [address] [place] [address] Drive [address] [place] [address]- Status: Pending Future Orders Complete Urinalysis (Urinalysis Complete) - Routine, Once, 07/17/23 16:28:00 EDT, Order for Today, [facility], Urine?? Urine Culture - Routine, Once, 07/17/23 16:29:00 EDT, Order for Today, [facility], Urine Clean Catch?? Medications The list below reflects the information in our records and provided by you today along with any changes made during this visit. Please continue your medications until treatment is completed or stopped by your provider. If this is different from the information you have or there are other questions,please contact the prescribing provider. What How Much When Instructions Unchanged Albuterol (albuterol 0.083% inhalation solution) 3 Milliliter Inhalation Every 6 hours as needed for for wheezing Unchanged Albuterol (Ventolin HFA 108 mcg/ inh inhalation aerosol with adapter) 2 puff(s) Inhalation Every 4 hours as needed for for wheezing Unchanged buPROPion-naltrexone (Contrave 8 mg-90 mg oral tablet, extended release) See instructions 1 tab once daily x 1 week, then 1 tab twice daily in second week then 2 tabs qam,1 tab qhs for 1 week then 2 tabs bid ?? Unchanged Cholecalciferol (Vitamin D3 1000 intl units [...] Nasal (Flonase) 1 spray(s) Daily Unchanged Fluticasone-Salmeterol (Wixela Inhub 500 mcg-50 mcg inhalation powder) 1 Doses Inhalation Twice a day RINSE MOUTH AFTER USE ?? Unchanged fluticasone-vilanterol (Breo Ellipta 200 mcg-25 mcg/ inh inhalation powder) 1 puff(s) Inhalation Daily Unchanged Multivitamin, ( Multivitamins) Oral Daily Unchanged Norethindrone (norethindrone 0.35 mg oral tablet) 1 tab(s) Oral Daily Unchanged Ondansetron (ondansetron 4 mg oral tablet) 1 tab(s) Oral Every 8 hours as needed for NEEDED FOR NAUSEA AND VOMITING FOR Duration: 5 Days Unchanged Pantoprazole (Protonix 40 mg oral delayed release tablet) 40 Unknown, Oral, 5 Refill(s), Take 1 Tablet by mouth 2 times daily (before meals) for 180 days. ?? Unchanged Sucralfate (Carafate 1 gm/ 10 ml oral suspension) 1 Unknown, Oral, 0 Refill(s), Take 10 mL by mouth 4 times daily (before meals and nightly) for 30 days. ?? Unchanged Sucralfate (sucralfate 1 gm/ 10 ml oral suspension) TAKE 10 ML BY MOUTH 4 TIMES DAILY (BEFORE MEALS AND NIGHTLY) FOR 30 DAYS. ?? Medications and Immunizations Administered Medications Given During Visit No medications given during this visit.?? Allergies (NKA means No Known Allergies) Other Environmental Allergy Reglan??(EYE TWITCHING) metoclopramide??(Not available) Common Emergency Awareness Tips IS IT A [...] strongly encouraged to quit. Please call [facility] at [phone] or [phone]) or log in to [email or web address] for referrals to smoking cessation programs. ?? The National Suicide Prevention Hotline is available 23/10 if you or someone you know needs to find a reason to keep living. By calling 4-422-352-Surplex (1589) you'll be connected to a skilled, trained counselor at a crisis center in your area. [facility] You can view and manage your care through the patient portal or by using a health care ismael of your choosing. [employer] is a website that allows you to securely view your medical information including your hospital discharge summary, office visit summaries, medications and follow-up visits. You can also request appointments, renew medications, and request access to your medical information using a health care ismael of your choosing, or just ask a question. You can enroll at [email or web address] or register during your next office visit. [facility], in keeping with [facility] guidance, no longer requires face masks [...] primary care provider, you may find a [facility] provider by calling [facility] at [phone]. Patient Care team information Care Team Personnel Name: Macario DIEGO, Adela Marroquin Position: [facility] SCALE EXPERT MD Member Role: [employer] SCALE EXPERT Physician Address: Address: [address] [place] [address], [facility] [address] [facility] [place] [address]- Name: Nanci Melendez MD Position: [facility] Physician - Primary Care Member Role: PCP Address: Address: [address] [place] [address]- Name: Tammy Schuler Position: [facility] Outreach Member Role: Lifetime Consulting Physician Care Team Related Persons Name: SEAN RITCHIE Address: [address] Address: [address] [place] [address] Name: DERRELL RITCHIE Address: home [address] [facility] [address] [place] [address] Name: DERRELL RITCHIE Address: home [address] [place] [address] [place] [address] Name: DERRELL RITCHIE Address: home [address] [facility] [address] [place] [address] Name: SHEBA CANO Address: home [address] [place] [address] Name: DAYANNA CANO Address: home [address] [place] [id number]
--- OUTSIDE RECORDS SUMMARY | 2024-02-22 11:49 | XMS_ITS | Continuity of Care Document ---
Author Organization [facility] Address [address] [place] [address]- Care Team Providers Care Cane Burner Name Role Phone Nanci Melendez MD Primary Care Physician Encounter [facility] [place] Date(s): 01/27/22 - 01/28/[address] [address]- Discharge Disposition: A-D/C Home Attending Physician: Philip Mosqueda MD Admitting Physician: Philip Mosqueda MD Referring Physician: Philip Mosqueda MD Allergies, Adverse Reactions, Alerts Substance Reaction [...] Recor ded 1Result Comment: [facility]# [id number] PT. TOLERATED INJ. WITHOUT COMPLICATIONS....CO 2Result Comment: [facility]# [id number] PT. TOLERATED INJ. WITHOUT COMPLICATIONS...CO 3Result Comment: [04/06/2016] pt. tolerated inj. without complications...CO 4Result Comment: [04/14/2015] Measles mumps rubella titer Medications Albuterol (Eqv-ProAir HFA) 90 mcg/inh inhalation aerosol See Instructions, INHALE 2 PUFFS BY MOUTH 4 TIMES DAILY NEEDED FOR WHEEZING, # 9 Gm, 6 Refills, 08/17/21 9:51:00 EDT, [facility], 25, INHALE 2 PUFFS BY MOUTH 4 TIMES DAILY NEEDED FORWHEEZING, 162, cm, 08/03/21 16:59:00 EDT, Height, 1... Start Date: 08/17/21 Status: Ordered albuterol 0.083% inhalation solution 3 mL = 2.5 mg, Inhalation, Every 6 hours, PRN for wheezing, # 100 each, 5 Refills, Maintenance, 08/17/21 9:51:00 EDT, Solution, [facility], replaces previous Rx for albuterol-ipatropium [...] once daily, # 90 capsule, 1 Refills, [facility], 162, cm, 09/16/21 15:34:00 EDT, [...] tablet, 11 Refills, Maintenance, 08/18/21 16:40:00EDT, Tablet, [facility], Partial fill upon patient request [...] 08/17/21 9:51:00 EDT, Route to Pharmacy Electronically, [id number], [facility], 162, cm, 08/03/21 16:59:00 EDT, [...] tablet, 11 Refills, Maintenance, 03/16/21 11:27:00 EST, [facility], 162, cm, 03/10/21 14:17:00 EST, Height, [...] Range]: 1 2 3 Height 163 cm (01/27/22 9:53 PM) Weight 127.1 kg (01/27/22 9:53 PM) 127.1 kg (01/27/22 2:11 PM) Oxygen Saturation [94-100 %] 98 % (01/27/22 9:40 PM) 98 % (01/27/22 9:31 PM) 98 % (01/27/22 9:12 PM) Pulse Rate [55-90 bpm] 63 bpm (01/27/22 9:53 PM) Body Mass Index [18.5-24.99 kg/m2] 47.84 kg/m2 *>HHI* (01/27/22 9:53 PM) Blood Pressure [90-138/55-84 mm Hg] 126/87mm Hg (01/28/22 11:24 AM) 124/82mm Hg (01/28/22 9:11 AM) 128/86mm Hg 1 (01/28/22 8:00 AM) Respiratory Rate [16-30 br/min] 17 br/min (01/28/22 11:24 AM) 17 br/min (01/28/22 8:00 AM) 18 br/min (01/27/22 9:53 PM) Temperature [96.8-100.4 DegF] 98.4 DegF (01/28/22 8:00 AM) 98.2 DegF (01/27/22 9:53 PM) 98.2 DegF (01/27/22 2:11 PM) Mode of Delivery (Oxygen) Room air (01/27/22 6:07 PM) Room air (01/27/22 5:35 PM) Room air (01/27/22 5:05 PM) Blood pressure sites Arm, right (01/27/22 9:53 PM) Arm, right (01/27/22 3:27 PM) Arm, right (01/27/22 3:12 PM) Temperature Route Oral (01/27/22 9:53 PM) Oral (01/27/22 2:11 PM) Dry Weight 127.1 kg (01/27/22 9:53 PM) 127.1 kg (01/27/22 2:11 PM) 1Result Comment: vitals done at 0840 not 0800. Social History Social History Type Response Smoking Status Never smoker; Tobacc o user in household: No entered on: 07/02/15 Sex Patient Care team information Personnel Name: Nanci Melendez MD Address: Address: [address] [place] [address]
--- OUTSIDE RECORDS SUMMARY | 2024-02-22 11:49 | XMS_ITS | Continuity of Care Document ---
Author Organization [facility] Address [address], [address] [address]- Care Team Providers Care Plastics Design Engineer Name Role Phone Nanci Melendez MD Primary Care Physician Encounter [facility] Date(s): 05/24/21 - 06/23/21 [facility] Susanenrique Sosa[facility]per[facility] [address], [address] [place], [place] [address] Allergies, Adverse Reactions, Alerts [...] ded 1Result Comment: [facility]# [id number] PT. TOLERATED INJ. WITHOUT COMPLICATIONS....CO 2Result Comment: [facility]# [id number] PT. TOLERATED INJ. WITHOUT COMPLICATIONS...CO 3Result Comment: [...] Gm, 10 Refills, Maintenance, 06/07/20 14:34:00 EST, [facility], 50, INHALE 2 PUFFS BY MOUTH 4 TIMES DAILY NEEDED FORWHEEZING, 161, cm, 02/10/20 14:26:00 EST, Height, 1... Start Date: 06/07/20 Status: Ordered albuterol 0.083% inhalation solution 3 mL = 2.5 mg, Inhalation, Every 6 hours, PRN for wheezing, # 25 each, 0 Refills, Maintenance, 04/04/21 12:33:00 EST, Solution, [facility], replaces previous Rx for albuterol-ipatropium solution, 162, cm, 03/10/21 14:17:00 EST, Height, 105.... Start Date: 04/04/21 Status: Ordered albuterol-ipratropium 3 mg-0.5 mg/3 ml inhalation solution 3 mL, Neb, 4 times a day, PRN shortness of breath, # 180 mL, 2 Refills, Maintenance, 04/04/21 8:55:00 EST, Solution, [facility] 1967, 3 mL Neb 4 times a day,PRN:shortness of breath, 162, cm, 03/10/21 14:17:00 EST, Height, 105.2, kg, 02/12/21 17:... Start Date: 04/04/21 Status: Ordered Apri 0.15 mg-0.03 mg oral tablet 1 tablet, By Mouth, Daily, start first tablet today, # 1 pack/packet, 3 Refills, Maintenance, 12/09/20 13:48:00 EDT, [facility] 1967, Partial fill upon [...] 0 Refills, Maintenance, 02/11/21 12:37:00 EST, ECCapsule, [facility], 163, cm, 01/01/21 10:10:00 EDT, Height Start Date: 02/11/21 Status: Ordered Endometrin 100 mg vaginal insert = 100 mg, Vaginally, 3 times a day, to add on day of transfer, # 90 supp, 5 Refills, Maintenance, 04/28/21 9:20:00 EST, [facility], Partial fill upon patient [...] each, Refills 5, Route to Pharmacy Electronically, [id number], [facility], 163, cm, 01/01/21 10:10:00 EDT, Height Start Date: 01/28/21 Status: Ordered metFORMIN 500 mg oral tablet, extended release See Instructions, take 1 tablet po w/dinner x1 wk, then increase to 2 tablets x 1-2 wks, then increase to 3 tablets 1-2 wks,then 4 tabs with dinner every day., # 120 tablet, 11 Refills, Maintenance, 03/16/21 11:27:00 EST, [facility] 1966, 162, c... Start Date: 03/16/21 [...] 06/18/20 9:35:00 EDT, [facility], 161, cm, 219:18:00 EDT, Height, 106, kg, 09/11/18 13:37:00 EDT... Start Date: 06/18/20 Status: Ordered oxyCODONE 5 mg oral tablet 5 mg, 1, tablet, By Mouth, Every 6 hours, PRN, # 8 tablet, Refills 0, Tot. Refills 0, Maintenance, Pain , Mild, 01/18/21 9:22:00 EDT, Route to Pharmacy Electronically, [facility] 1966, Partial fill upon patient request if the prescription is for... Start Date: 01/18/21 Status: Ordered Multivitamins By Mouth, Daily, 0 Refills, Maintenance, 06/05/18 11:27:06 EST Start Date: 06/05/18 Status: Ordered progesterone 50 mg/mL intramuscular solution 50mg/ml 1 ml (sesame oil), Intramuscular, Daily, # 30 mL, 5 Refills, Maintenance, 04/28/21 9:19:00 EST, [facility], Partial fill upon patient request if the prescription is for a schedule II opioid drug., 162, cm, 03/10/21 14:17:00 ES... Start Date: 04/28/21 Status: Ordered Provera 10 mg oral tablet 10 mg, 1, tablet, By Mouth, Daily, # 10 tablet, Refills 0, Tot. Refills 0, Maintenance, 04/04/21 10:58:00 EST, [facility], Partial fill upon patient request [...] 01/18/21 9:22:00 EDT, [facility], Partial fill upon patient request if the... Start Date: 01/18/21 Status: Ordered Valium 5 mg oral tablet 5 mg, 1, tablet, By Mouth, Once, One tablet one hour prior to procedure, may repeat x 1 as needed for anxiety, # 2 tablet, Refills 0, Tot. Refills 0, Soft Stop, 06/04/21 13:10:00 EST, [facility], Partial fi... Start Date: 06/04/21 Status: Ordered [...] patch, 5 Refills, Maintenance, 04/28/21 9:19:00 EST, [facility], Partial fill upon patient [...]
--- OUTSIDE RECORDS SUMMARY | 2024-02-22 11:49 | XMS_ITS | Continuity of Care Document ---
Author Organization [facility] Address [address] [place] [address]- Care Team Providers Care Tool Lathe Operator Name Role Phone Al DIEGO, Nanci Segovia Primary Care Physician [facility]counter [facility] Date(s): 12/12/23 - 01/11/24 [facility] [address] [place] [address]- Allergies, Adverse Reactions, Alerts Substance Reaction Severity [...] pt. tolerated inj. without complications...CO 2Result Comment: [facility]# [id number] PT. TOLERATED INJ. WITHOUT COMPLICATIONS....CO 3Result Comment: [facility]# [id number] PT. TOLERATED INJ. WITHOUT COMPLICATIONS...CO 4Result Comment: [04/14/2015] Measles mumps rubella titer Medications albuterol 0.083% inhalation solution 3 mL = 2.5 mg, Inhalation, Every 6 hours, PRN for wheezing, # 100 each, 5 Refills, Maintenance, 06/19/22 15:15:00 EDT, Solution, [facility]/pharmacy #1130, replaces previous Rx for albuterol-ipatropium solution, 163, cm, 05/01/22 14:15:00 EST, Height, 128.2,... Start Date: 06/19/22 Status: Ordered Breo Ellipta 200 mcg-25 mcg/inh inhalation powder 1 puffs, Inhalation, Daily, # 1 each, 6 Refills, Maintenance, 12/28/23 13:38:00 EDT, Powder, [facility]/pharmacy #1130, Partial fill upon patient [...] Refills, Maintenance, 12/28/23 13:34:00 EDT, ER Tablet, [facility]/pharmacy #1130, Partial fill upon prabhu... Start Date: 12/28/23 Status: Ordered Dexilant 60 mg oral delayed release capsule See Instructions, Take 1 capsule by mouth once daily, # 90 capsule, 0 Refills, 03/14/22 14:26:00 EST, [facility], 163, cm, 02/27/22 9:06:00 [...] tablet, 5 Refills, Maintenance, 08/16/22 9:41:00 EDT, [facility], 163, cm, 05/01/22 14:15:00 EST, Height, 128.2, kg, 02/05/22 12:22:00 EST, Dry Weight Start Date: 08/16/22 Status: Ordered ondansetron 4 mg oral tablet 1 tablet, By Mouth, Every 8 hours, PRN NEEDED FOR NAUSEA AND VOMITING FOR, # 15 tablet, 3 Refills, Maintenance, 09/14/23 16:11:00 EDT, [facility], 160, cm, 07/21/23 8:30:00 EDT, Height, 114, [...] Refills, Maintenance, 01/09/24 15:51:00 EDT, [facility], 30, INHALE 1 DOSE BY MOUTH TWICE [...] Team Personnel Name: Adela Sorto MD Position: [facility] CBX OPERATOR Member Role: Lifetime CBX OPERATOR Physician Address: Address: [address] [place] [address], [address] [facility] [place] [address]- Name: Nanci Melendez MD Position: [facility] Physician - Primary Care Member Role: PCP Address: Address: [address] [place] [address]- Name: Tammy Schuler Position: S Outreach Member Role: Lifetime Consulting Physician Care Team Related Persons Name: SEAN RITCHIE Address: [address] Address: home [address] [place] [address] Name: DRERELL RITCHIE Address: home [address] [place] [address] Name: DERRELL RITCHIE Address: home [address] [address] Name: DERRELL RITCHIE Address: home [address] [place] [address] Name: SHEBA CANO Address: home [address] [place] [address] Name: DAYANNA CANO Address: home [address] [place] [address]
--- OUTSIDE RECORDS SUMMARY | 2024-02-22 11:49 | XMS_ITS | Continuity of Care Document ---
Author Organization [facility] Address [address] [place] [address], [address] [place] [address]- Care Team Providers Care Daytime Babysitter Name Role Phone Al DIEGO, Nanci Segovia Primary Care Physician [phone] Encounter [facility] Date(s): 03/19/20 - 04[facility]18/20 [facility] [address], [address] [place] [address]- Allergies, Adverse Reactions, Alerts Substance Reaction Severity [...] ded 1Result Comment: [facility]# [id number] PT. TOLERATED INJ. WITHOUT COMPLICATIONS....CO 2Result Comment: [facility]# [id number] PT. TOLERATED INJ. WITHOUT COMPLICATIONS...CO 3Result Comment: [04/06/2016] pt. tolerated inj. without complications...CO 4Result Comment: [04/14/2015] Measles mumps rubella titer Medications Advair Diskus 500 mcg-50 mcg inhalation powder 1, puffs, Inhalation, 2 times a day, # 1 each, Refills 12, Tot. Refills 12, Maintenance, 12/24/19 13:40:00 EDT, Route to Pharmacy Electronically, [id number], [facility], 161, cm, 06/12/19 8:56:00 EDT, Height, 106,... Start Date: 12/24/19 Status: Ordered albuterol 0.083% inhalation solution 3 mL = 2.5 mg, Inhalation, Every 6 hours, PRN for wheezing, # 60 each, 11 Refills, Maintenance, 12/24/19 13:40:00 EDT, Solution, [facility], 161, cm, 06/12/19 [...] Maintenance, 12/24/19 13:41:00 EDT, ECCapsule, [facility], 161, cm, 06/12/19 8:56:00 EDT, Height, 106, kg, 09/11/18 13:37:00 EDT, Dry Weight Start Date: 12/24/19 Status: Ordered diclofenac sodium 75 mg oral delayed release tablet 1 tablet = 75 mg, By Mouth, 2 times a day, PRN for pain, TAKE WITH FOOD, # 28 tablet, 1 Refills, Maintenance, 12/16/19 9:22:00 EDT, Tablet, [facility], 161, cm, 06/12/19 [...] 3 Refills, Maintenance, 02/09/20 17:27:00 EST, [facility], 161, cm, 06/12/19 [...] Refills, Maintenance, 02/10/20 14:25:00 EST, [facility], 161, c... Start [...] 5 Refills, Maintenance, 12/24/19 13:58:00 EDT, [facility], 161, cm, 208:56:00 [...] 13:40:00 EDT, Inhaler, Route to Pharmacy Electronically, [id number],[facility], 161, cm, 06/12/19 8:56:00 ED... Start Date: 12/24/19 Status: Ordered ProAir HFA 90 mcg/inh inhalation aerosol with adapter 2, puffs, Inhalation, 4 times a day, PRN, # 2 each, Refills 5, Tot. Refills 5, Maintenance, 05/19/19 15:55:00 EST, Aerosol, Route to Pharmacy Electronically, [id number], [facility], 161, cm, 01/20/19 [...]
--- OUTSIDE RECORDS SUMMARY | 2024-02-22 11:49 | XMS_ITS | Continuity of Care Document ---
Author Organization [facility] Address Unknown Care Team Providers Care Levi Maker Name Role Phone Nanci Melendez MD Primary Care Physician [facility]counter [facility] Date(s): 04/27/21 - 05/27/21 [facility] Allergies, Adverse Reactions, Alerts [...] 1Result Comment: [facility]# [id number] PT. TOLERATED INJ. WITHOUT COMPLICATIONS....CO 2Result Comment: [facility]# [id number] PT. TOLERATED INJ. WITHOUT COMPLICATIONS...CO 3Result Comment: [...] Gm, 10 Refills, Maintenance, 06/07/20 14:34:00 EST[facility], [facility], INHALE 2 PUFFS BY MOUTH 4 TIMES DAILY NEEDED FORWHEEZING, 161, cm, 02/10/20 14:26:00 EST, Height, 1... Start Date: 06/07/20 Status: Ordered albuterol 0.083% inhalation solution 3 mL = 2.5 mg, Inhalation, Every 6 hours, PRN for wheezing, # 25 each, 0 Refills, Maintenance, 04/04/21 12:33:00 EST, [facility], replaces previous Rx for albuterol-ipatropium solution, 162, cm, 03/10/21 14:17:00 EST, Height, 105.... Start Date: 04/04/21 Status: Ordered albuterol-ipratropium 3 mg-0.5 mg/3 ml inhalation solution 3 mL, Neb, 4 times a day, PRN shortness of breath, # 180 mL, 2 Refills, Maintenance, 04/04/21 8:55:00 EST, Solution, [facility], 3 mL Neb 4 times a day,PRN:shortness of breath, 162, cm, 03/10/21 14:17:00 EST, Height, 105.2, kg, 02/12/21 17:... Start Date: 04/04/21 Status: Ordered Apri 0.15 mg-0.03 mg oral tablet 1 tablet, By Mouth, Daily, start first tablet today, # 1 pack/packet, 3 Refills, Maintenance, 12/09/20 13:48:00 EDT, [facility], Partial fill upon patient [...] 0 Refills, Maintenance, 02/11/21 12:37:00 EST, ECCapsule, [facility], 163, cm, 01/01/21 10:10:00 [...] each, Refills 5, Route to Pharmacy Electronically, [id number], [facility], 163, cm, 01/01/21 10:10:00 EDT, Height Start Date: 01/28/21 Status: Ordered metFORMIN 500 mg oral tablet, extended release See Instructions, take 1 tablet po w/dinner x1 wk, then increase to 2 tablets x 1-2 wks, then increase to 3 tablets 1-2 wks,then 4 tabs with dinner every day., # 120 tablet, 11 Refills, Maintenance, 03/16/21 11:27:00 EST, [facility], 162, c... Start Date: [...] each, 11 Refills, Maintenance, 06/18/20 9:35:00 EDT, [facility], 161, cm, 219:18:00 EDT, Height, 106, kg, 09/11/18 13:37:00 EDT... Start Date: 06/18/20 Status: Ordered oxyCODONE 5 mg oral tablet 5 mg, 1, tablet, By Mouth, Every 6 hours, PRN, # 8 tablet, Refills 0, Tot. Refills 0, Maintenance, Pain , Mild, 01/18/21 9:22:00 EDT, Route to Pharmacy Electronically, [facility], Partial fill upon patient request if the prescription is for... Start Date: 01/18/21 Status: Ordered Multivitamins By Mouth, Daily, 0 Refills, Maintenance, 06/05/18 11:27:06 EST Start Date: 06/05/18 Status: Ordered progesterone 50 mg/mL intramuscular solution 50mg/ml 1 ml (sesame oil), Intramuscular, Daily, # 30 mL, 5 Refills, Maintenance, 04/28/21 9:19:00 EST, [facility], Partial fill upon patient request if the prescription is for a schedule II opioid drug., 162, cm, 03/10/21 14:17:00 ES... Start Date: 04/28/21 Status: Ordered Provera 10 mg oral tablet 10 mg, 1, tablet, By Mouth, Daily, # 10 tablet, Refills 0, Tot. Refills 0, Maintenance, 04/04/21 10:58:00 EST, Route to Pharmacy Electronically, [facility] 1966, Partial fill upon patient [...] 9:22:00 EDT, Route to Pharmacy Electronically, [facility], Partial fill upon patient [...]
--- OUTSIDE RECORDS SUMMARY | 2024-02-22 11:50 | XMS_ITS | Continuity of Care Document ---
Author Organization [facility] Address [address] [place] [address]- Care Team Providers Care Extract Mixer Name Role Phone Al DIEGO, Nanci Segovia Primary Care Physician Encounter [facility] Date(s): 10/24/23 - 11/23/23 [facility] [address] [place] [address]- Allergies, Adverse Reactions, Alerts Substance Reaction Severity [...] Virus Vaccine 11/21/89 Recor ded 1Result Comment: [facility]# [id number] PT. TOLERATED INJ. WITHOUT COMPLICATIONS....CO 2Result Comment: [facility]# [id number] PT. TOLERATED INJ. WITHOUT COMPLICATIONS...CO 3Result Comment: [04/06/2016] pt. tolerated inj. without complications...CO 4Result Comment: [04/14/2015] Measles mumps rubella titer Medications albuterol 0.083% inhalation solution 3 mL = 2.5 mg, Inhalation, Every 6 hours, PRN for wheezing, # 100 each, 5 Refills, Maintenance, 06/19/22 15:15:00 EDT, Solution, [facility]/pharmacy #1130, replaces previous Rx for albuterol-ipatropium solution, 163, cm, 05/01/22 14:15:00 EST, Height, 128.2,... Start Date: 06/19/22 Status: Ordered Dexilant 60 mg oral delayed release capsule See Instructions, Take 1 capsule by mouth once daily, # 90 capsule, 0 Refills, 03/14/22 14:26:00 EST, [facility], 163, cm, 02/27/22 9:06:00 [...] tablet, 11 Refills, Maintenance, 08/18/21 16:40:00EDT, Tablet, [facility], Partial fill upon [...] 03/12/23 11:30:00 EST, Route to Pharmacy Electronically, [id number], [facility]/pharmacy #1130, 163, cm, 03/02/23 13:11:00 EST, Height, 128.2, kg, 02/05/22 1... 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, 08/30/18 17:26:09 EDT, Compound Start Date: 08/30/18 Status: Ordered norethindrone 0.35 mg oral tablet 1 tablet, By Mouth, Daily, # 84 tablet, 5 Refills, Maintenance, 08/16/22 9:41:00 EDT, [facility], 163, cm, 05/01/22 14:15:00 EST, Height, 128.2, kg, 02/05/22 12:22:00 EST, Dry Weight Start Date: 08/16/22 Status: Ordered ondansetron 4 mg oral tablet 1 tablet, By Mouth, Every 8 hours, PRN NEEDED FOR NAUSEA AND VOMITING FOR, # 15 tablet, 3 Refills, Maintenance, 09/14/23 16:11:00 EDT, [facility], 160, cm, 07/21/23 8:30:00 EDT, Height, 114, kg, 07/21/23 8:30:00 EDT, Dry Weight Start Date: 09/14/23 Stop Date: 09/19/23 Status: Ordered Multivitamins By Mouth, Daily, 0 Refills, Maintenance, 06/05/18 11:27:06 EST Start Date: 06/05/18 Status: Ordered Ventolin HFA 108 mcg/inh inhalation aerosol with adapter 2 puffs, Inhalation, Every 4 hours, PRN for wheezing, # 8 Gm, 5 Refills, Maintenance, 03/12/23 11:35:00 EST, Aerosol, [facility]/pharmacy #1130, Partial fill upon patient request if [...] Macario DIEGO, Adela Marroquin Position: [facility] SUBSURFACE AUGMENTEE OPERATOR MD Member Role: Lifetime SUBSURFACE AUGMENTEE OPERATOR Physician Address: Address: [address] [place] [address], [address] [place], [place] [address] Name: Nanci Melendez MD Position: [facility] Physician - Primary Care Member Role: PCP Address: Address: [address] [place] [address]- Name: Tammy Schuler Position: [facility] Outreach Member Role: Lifetime Consulting Physician Care Team Related Persons Name: SEAN RITCHIE Address: [address] Address: home [address] [place] [address] [place] Name: DERRELL RITCHIE Address: home [address] [facility] [place] [id number] Name: DERRELL RITCHIE Address: home [address] [place] [address] Name: DERRELL RITCHIE Address: home [address] [place] [address] Name: SHEBA CANO Address: home [address] [place] [address] Name: DAYANNA CANO Address: home [address] [place] [address]
--- OUTSIDE RECORDS SUMMARY | 2024-02-22 11:50 | XMS_ITS | Patient Health Record ---
Author Organization [facility] Address [address] [place] [address] Care Team Providers Care Court Worker Name Role Phone AlKarol abrahamberly Primary Care Provider Luis Richmond Unavailable [phone] Allergies Allergen (clinical drug ingredient) Drug/Non Drug Allergy documented on EMR Reaction Allergy Type Onset Date Status metoclopramide Reglan facial spasms Drug Allergy Active Reason For Referral No Information Medications Medication SIG (Take, Route, Frequency, Duration) Notes Start Date End Date Status Ipratropium-Albuterol 0.5-2.5 (3) MG/3ML USE 3 ML IN NEBULIZER 4 TIMES DAILY NEEDED FOR SHORTNESS OF BREATH Inhalation for 15 Not-Taking Famotidine Active metroNIDAZOLE 500 MG TAKE 1 TABLET BY MO UTH THREE TIMES DAILY WITH FOOD FOR 7 DAYS Oral for 7 Not-Taking Active Vitamin D Active Albuterol Sulfate HFA Not-Taking Fluticasone-Salmeterol Not-Taking Dexilant Active Diclofenac Sodium No t-Taking ProAir HFA 108 (90 Base) MCG/ACT INHALE 2 PUFFS BY MOUTH 4 TIMES DAILY NEEDED FOR WHEEZING Inhalation for 25 Active Albuterol Sulfate (2.5 MG/3ML) 0.083% USE 1 VIAL IN NEBULIZER EVERY 6 HOURS NEEDED FOR WHEEZING Inhalation for 13 Not-Taking Ondansetron HCl 4 MG TAKE 1 TABLET BY MO UTH EVERY 8 HOURS NEEDED FOR NAUSEA AND VOMITING FOR 5 DAYS Oral for 5 Active predniSONE 10 MG TAKE 4 TABLETS BY MOUTH FOR 3 DAYS THEN 3 TABLETS BY MOUTH FOR 3 DAYS THEN 2 TABLETS BY MOUTH FOR 3 DAYS THEN 1 TABLET BY MOUTH FOR 3 DAYS Oral for 12 Not-Takin g Advair Diskus 500-50 MCG/DOSE as directed Inhalation Activ e Amoxicillin-Pot Clavulanate 875-125 MG TAKE 1 TABLET BY MOUTH TWICE DAILY FOR 7 DAYS Oral for 7 Not-Taking Benadryl Active Cholestyramine 4 GM DISSOLVE & TAKE 1 PACKET BY MOUTH THREE TIMES DAILY WITH MEALS Oral for 30 Not-Taking metFORMIN HCl 500 MG 1 tablet with a ian l Orally Once a day for 30 day(s) Active Immunizations Vaccine Route Administration Date Status Comme nts COVID-19 Pfizer BioNTech Vaccine Unknown 04/08/2020 Adm inistered COVID-19 Pfizer BioNTech Vaccine Unknown 04/28/2020 Adm inistered Social History Tobacco Use: Social History Observation Description Date Details (start date - stop date) Never Smoker NA - NA Tobacco Use/Smoking Question Answer Notes Are you a: nonsmoker Additional Findings: Tobacco Non-User Current no n-smoker Alcohol Screen Question Answer Notes Did you have a drink contain ing alcohol in the past year? Yes How often did you have a dri nk containing alcohol in the past year? 2 to 4 times a month (2 points) How many drinks did you have on a typical day when you were drinking in the past year? 1 or 2 drinks (0 point) Points 2 Interpretation Negative Tobacco use other than smoking: Question Answer Notes Are you an other tobacco user? No Problems Problem Type SNOMED Code ICD Code Onset Dates Problem Status W/U Status Risk Notes Problem Plantar fascial fibromatosis (89939240) Plantar fascial fibromatosis (M72.2) Active confirmed Plan Of Treatment Pending Test Test Name Order Date ,G8501-MSP TENDON SHEATH/LIGAMENT 0 08/11/2020 Insurance Providers Payer Name Payer Address Payer Phone Subscriber Number Group Number Insured Name Patient Relationship to Insured Coverage Start Date Coverage End Date [facility] [address] [place] [address] SINDI mathias [address] [id number] Mookie Acuna Spouse - patient is the spouse of the insured Medical (General) History Medical History History ICD Code asthma Gall bladder problems polycystic ovary syndrom - PCOS Gastroparesis Surgical History Surgery Date(Month/Year) Gastric Stimulator 2016 cholecystectomy 2016
== END 2024-02-15 10:52 | disposition home or self-care (01) ==
LOC: HO.HBS 07:58
PROVIDERS: PCP Internal Medicine; Visit Provider Surgery
DX: E66.813 Obesity, class 3 (principal); E66.01 Morbid (severe) obesity due to excess calories; Z68.41 Body mass index [BMI] 40.0-44.9, adult
CPT/HCPCS: 99443

== ENCOUNTER → 2024-02-15 07:58 | Outpatient (BNVA) | payer BC, SELFPAY | PROVIDERS: PCP Internal Medicine; Visit Provider Surgery ==

== ENCOUNTER 2025-03-03 10:53 | Outpatient (AMB) | payer BC, SELFPAY ==
--- NOTE | 2025-03-03 10:55 | MHC.PC.OV ---
Vital Signs 03/03/25 10:57 Height 5 ft 3.25 in Weight 216 lb 6 oz BMI 38.0 BP 98/62 Blood Pressure Location Rt brachial Position Sitting Respiration 16 Pulse 86 Pulse Source Pulse Oximeter Temp 97.1 F Temp Source Temporal Artery Scan Pulse Oximetry (%) 97 Oxygen Delivery Method Room Air Intake Visit Reasons: New Patient, reestablish care and physical Women Designer Required: No Accompanied by: Self / Same As Patient Allergies metoclopramide (From REGLAN) Allergy (Intermediate, Verified 03/03/25 11:37) facial spasms Medication List - Last Reconciled 03/03/25 by Nanic Melendez MD albuterol sulfate mg inhalation Q6H PRN albuterol sulfate 90 mcg/actuation 2 puffs inhalation Q6H PRN cetirizine (Zyrtec) 10 mg PO DAILY PRN cholecalciferol (vitamin D3) 50 mcg PO DAILY desogestrel-ethinyl estradiol 0.15-0.03 mg (Apri) 1 tab PO DAILY docosahexaenoic acid ( DHA) mg PO esomeprazole magnesium (Nexium) 60 mg PO DAILY famotidine 40 mg PO BID PRN fluticasone propion-salmeterol 500-50 mcg/dose (Advair Diskus) 1 inh inhalation Q12H metformin mg PO BID ondansetron HCl 4 mg PO Q8H PRN sucralfate 10 mL PO QID PRN Tobacco use date assessed: 03/03/25 Dental Screening Dental Screen Date: 03/03/25 Did you have a dental visit in the last 12 months?: Yes Did you have a dental problem in the last 6 months where you did not have access to dental care?: No Was dental information given to patient?: Patient has dentist HPI HPI Comments History of Present Illness Details The patient is a 34-year-old female presenting for a physical and to re-establish care. Gastroparesis: The patient has a history of gastroparesis managed with a gastric pacemaker. A recent gastric emptying test was normal with the pacemaker on high settings. A second opinion with motility specialist at [facility] at recommendation of her current motility specialist in [place]. Recommendation was to hold off on a G-POEM procedure, which the patient had hoped would allow for a reduction in the pacemaker settings. The patient follows up with Dr. Muir for pacemaker management and is due for an appointment to check the battery, which has lasted about five years. The patient reports ongoing issues with flare-ups and abdominal distension, more so than nausea. Obesity: The patient previously saw a bariatric specialist who recommended surgery but also wanted to turn off the patient's gastric pacemaker, which the patient declined. The patient has since been managing weight independently through Weight Watchers and has successfully lost weight, going from a high of 254 pounds to 216 pounds. GLP-1 agonists are contraindicated due to the patient's gastroparesis. The patient takes metformin, which is thought to be contributing to the weight loss. Preconception Counseling and History of Preeclampsia/ PCOS: The patient is currently trying to conceive another child and is under the care of [facility] for IVF. The patient has a history of preeclampsia during a prior , which was initially diagnosed as gestational hypertension. During that , the patient experienced severe swelling, blood pressures up to 160/90s, and was found to have proteinuria, leading to two hospital observations, bed rest, and an induction three weeks early. The patient also had palpitations and shortness of breath, for which an EKG was performed and was normal. The patient did not require magnesium treatment. The patient and her have a plan to stay active, including swimming, during the next . Asthma: The patient's asthma is generally well-controlled but can be triggered by colds and seasonal changes. The patient denies episodes of severe chest tightness or shortness of breath requiring prednisone. The patient uses Wixela as a maintenance inhaler and has an albuterol inhaler for rescue. History of Sleep Apnea: The patient was diagnosed with sleep apnea following a study in approximately 2017. The patient tried a CPAP machine but was unable to tolerate it due to feeling claustrophobic and has not used it since 2017 or 2018. The patient's reports that the patient continues to snore. Allergies: The patient reports experiencing facial spasms after taking metoclopramide (Reglan). This past summer, the patient had a bee sting that resulted in a painful swelling and rash of the entire abdomen that lasted for days. [facility] Medical History (Updated 03/03/25 @ 11:51 by Nanci Melendez MD) Preeclampsia Leg swelling Murmur Presence of gastric pacemaker JASVIR (obstructive sleep apnea) Routine medical exam Asthma PCOS (polycystic ovarian syndrome) GERD (gastroesophageal reflux disease) Nondiabetic gastroparesis Morbid obesity Gastric neurostimulator device in situ Surgical History (Updated 01/31/24 @ 14:02 by Meredith Meléndez [facility]) Hx of cervical polypectomy Hx laparoscopic cholecystectomy History of esophagogastroduodenoscopy (EGD) Hx of colonoscopy Family History (Updated 01/31/24 @ 09:43 by Meredith Meléndez [facility]) Mother Arthritis Father Hypertension Son Autism Reactive airway disease Social History (Updated 01/31/24 @ 09:49 by Meredith Meléndez [facility]) Housing: House Alcohol intake: current Alcohol intake frequency: holidays/special occasions only Patient Tobacco Use Status: Never used Tobacco e-Cigarette/Vaping Use: Never Used 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al status: employed 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 1. Little interest or pleasure in doing things: not at all 2. Feeling down, depressed, or hopeless: not at all 3. Trouble falling or staying asleep, or sleeping too much: several days 4. Feeling tired or having little energy: several days 5. Poor appetite or overeating: not at all 6. Feeling bad about yourself - or that you are a failure or have let yourself or your family down: not at all 7. Trouble concentrating on things, such as reading the newspaper or watching television: not at all 8. Moving or speaking so slowly that other people could have noticed. Or the opposite - being so fidgety or restless that you have been moving around a lot more than usual: not at all 9. Thoughts that you would be better off or of hurting yourself in some way: not at all Total score: 2 Depression Screening Interpretation: Negative Depression Screening Done: Yes 25745 - PHQ-9 Billing: Yes Source: Developed by Drs. Ruddy Ramires, Barbara Earl, Sebastian Cui and colleagues, with an educational alee from [employer]. Thrive Questionnaire Date Thrive assessed: 03/03/25 I am a: Patient What is your living situation today?: I have a steady place to live Within the past 12 months, did the food you bought not last and you didn't have the money to get more?: Never true Within the past 12 months, did you worry whether your food would run out before you got money to buy more?: Never true Do you have trouble paying for medicines?: No Do you have trouble getting transportation to medical appointments?: No Do you have trouble paying your heating and electricity bill?: No Do you have trouble taking care of your child, family member or friend?: No Do you have trouble with day-to-day activities such as bathing, preparing meals, shopping, managing finances, etc.?: No Are you currently unemployed and looking for a job?: No Are you interested in more education?: Yes Please select the resources that you would like help with: None Currently or been in a relationship where the following occur: No concerns reported THRIVE Score: 0 AUDIT C Alcohol Use Questionnaire (AUDIT-C) 1. How often do you have a drink containing alcohol?: Monthly or less 2. How many drinks containing alcohol do you have on a typical day when you are drinking?: 1 or 2 3. How often do you have six or more drinks on one occasion?: Never Total Score: 1 DOUGLAS-7 AMB Questionnaire DOUGLAS-7 Date DOUGLAS - 7 assessed: 03/03/25 Feeling nervous, anxious, or on edge: 0 = Not at all Not being able to stop or control worryin = Not at all Worrying too much about different things: 1 = Several days Trouble relaxin = Not at all Being so restless that it is hard to sit still: 0 = Not at all Becoming easily annoyed or irritable: 1 = Several days Feeling afraid as if something awful might happen: 0 = Not at all Total DOUGLAS-7 score (0-4 normal; 5-9 mild; 10-14 moderate; 15-21 severe): 2 Source: Developed by Drs. Ruddy Ramires, Barbara Earl, Sebastian Cui and colleagues, with an educational alee from [employer]. Review of Systems Narrative Review of Systems - Constitutional: per hpi - Respiratory: Reports asthma flares triggered by colds or seasonal changes. - Denies severe shortness of breath or chest tightness. - Gastrointestinal: Reports abdominal distension and bloating. - Denies significant nausea. - Allergic/Immunologic: - Reports significant, painfu lredness following a recent bee sting. - Neurological: negative. - Psychiatric: negative Physical exam (Primary Care) Vital Signs: Last Vital Signs Temp 97.1 F 03/03/25 10:57 Pulse 86 03/03/25 10:57 Resp 16 03/03/25 10:57 BP 98/62 03/03/25 10:57 Pulse Ox 97 03/03/25 10:57 Oxygen Delivery Method Room Air 03/03/25 10:57 BMI result Body Mass Index 38.0 Tobacco/Smoking Status: Tobacco use Status Tobacco use date assessed 03/03/25 03/03/25 11:07 Patient Tobacco Use Status Never used Tobacco 03/03/25 11:07 e-Cigarette/Vaping Use Never Used 03/03/25 11:07 PHQ-9: PHQ-9 Score PHQ-9: Total score 2 03/03/25 11:44 Depression Screening Interpretation: Negative Thrive Assessment: Date of Thrive Assessment Date Thrive assessed 03/03/25 03/03/25 11:07 Currently or been in a relationship where the following occur: No concerns reported Narrative Physical Exam - Ears: Bilateral ears are clear. - Throat: Oropharynx is without redness. - Eyes: Extraocular movements are intact. - Lungs: Clear to auscultation bilaterally, no wheezing. - Cardiovascular: Normal heart sounds, soft murmur present. - Carotids are clear without bruits. - Abdomen: Bowel sounds are present and normal. - There is slight tenderness on palpation(baseline for patient), but no major discomfort. - Extremities: Trace edema in both lower legs. Coding Level of Care Code Est Pt Prev Care 18-39y(98726) Complex visit Add On G2211 Diagnoses PCOS (polycystic ovarian syndrome) E28.2 Morbid obesity E66.01 Additional Codes PHQ-9 - 37671 - PHQ-9 Billing: Yes ([id number]) Assessment & Plan Assessment & Plan (1) PCOS (polycystic ovarian syndrome): Code(s): E28.2 - Polycystic ovarian syndrome Category: Medical (2) Morbid obesity: Code(s): E66.01 - Morbid (severe) obesity due to excess calories Category: Medical Plan Assessment and Plan 1. Health Maintenance / Preconception Evaluation The patient is a 34-year-old individual here for a physical to re-establish care . The patient has successfully lost a significant amount of weight. Given the history of severe preeclampsia and a murmur found on exam will evaluate further with echocardiogram. Plan also includes ordering a full panel of fasting labs including CBC, A1c, lipids, and thyroid function tests. Will also check vitamin B12, folate, and vitamin D levels. A baseline urine microalbumin will be ordered to check for proteinuria. 2. Obesity The patient has had excellent progress with weight loss, decreasing from 254 to 216 lbs through Weight Watchers and increased activity. GLP-1 agonists are contraindicated due to gastroparesis. Plan is to encourage continuation of the current successful regimen. 3. History of Sleep Apnea The patient was diagnosed in 2017 but is nonadherent with CPAP due to claustrophobia and has not had a follow-up study. The patient's reports continued snoring. A referral will be placed for a new sleep study to reassess the severity and discuss treatment options, including non-mask alternatives. 4. Gastroparesis and GERD The patient's gastroparesis is managed with a gastric pacemaker on high settings. The patient will continue current medications for GERD. Goes to [facility] but is looking to switch due to appt availability issues. 5. Allergic Reactions The patient reports a new, significant local reaction to a bee sting (abdominal swelling). To evaluate this further, a referral will be placed to an batch heat treat operator. 6. Polycystic Ovary Syndrome (PCOS) The patient is taking metformin 500 mg twice daily, which is well-tolerated and may be aiding in weight loss. Plan - Orders placed for fasting labs: complete blood count, A1c, thyroid panel, vitamin B12, folate, and vitamin D. - Order placed for a baseline echocardiogram to evaluate a noted heart murmur - Order placed for a urine microalbumin - Referral placed to Sleep Medicine for a repeat sleep study to re-evaluate sleep apnea. - Referral placed to Gastroenterology to establish care with a local provider for easier access - Referral placed to Allergy/Immunology for evaluation of a recent significant reaction to a bee sting. - Advised to try a low-dose zinc gluconate supplement. - Refill sent for albuterol inhaler. - Encouraged continuation of current weight loss efforts with Weight Watchers and increased physical activity. - Follow up in the office in approximately 4-5 months. Discussion Notes I discussed with the patient the plan for this visit, which serves as both a physical and a preconception discussion. I explained the rationale for ordering comprehensive lab work, including vitamin B12 and folate. The patient's recent severe reaction to a bee sting was concerning, so I recommended and placed a referral to an batch heat treat operator for further testing. I commended the patient on the excellent progress with weight loss and encouraged continuation of the current lifestyle modifications. The patient understands the plan and the rationale for all referrals and tests ordered. Patient Instructions - Please go to the lab to have your blood drawn for the ordered tests. Remember to drink plenty of water beforehand. These tests will check your blood counts, kidney and liver function, blood sugar, thyroid, and vitamin levels. - You will need to provide a urine sample at the lab as well. - Our office has ordered a heart ultrasound (echocardiogram) for you. The imaging department will contact you to schedule this. - We have sent referrals to several specialists for you: Sleep Medicine for a new sleep study, Gastroenterology (GI) to establish care here, and an acquisition specialist to check for a bee sting allergy. Their offices will contact you to schedule appointments. Please let us know if you do not hear from them within a couple of weeks. - Continue your successful weight management with Weight Watchers and your increased physical activity. Orders: Orders Complete Blood Count Auto Diff Today E28.2 - Polycystic ovarian syndrome, E66.01 - Morbid (severe) obesity due to excess calories, Z00.00 - Encounter for general adult medical examination without abnormal findings Comprehensive Met. Panel Today E28.2 - Polycystic ovarian syndrome, E66.01 - Morbid (severe) obesity due to excess calories Lipid Panel Today E28.2 - Polycystic ovarian syndrome, E66.01 - Morbid (severe) obesity due to excess calories, Z00.00 - Encounter for general adult medical examination without abnormal findings Ferritin Today E28.2 - Polycystic ovarian syndrome, E66.01 - Morbid (severe) obesity due to excess calories, K21.9 - Gastro-esophageal reflux disease without esophagitis, K31.84 - Gastroparesis Vitamin B12 Today E28.2 - Polycystic ovarian syndrome, E66.01 - Morbid (severe) obesity due to excess calories Vitamin D 25-OH Total Today E28.2 - Polycystic ovarian syndrome, E66.01 - Morbid (severe) obesity due to excess calories TSH reflex Free T4 Today E28.2 - Polycystic ovarian syndrome, E66.01 - Morbid (severe) obesity due to excess calories CA echo transthoracic complete Today M79.89 - Other specified soft tissue disorders, R01.1 - Cardiac murmur, unspecified Hemoglobin A1c Today E28.2 - Polycystic ovarian syndrome, E66.01 - Morbid (severe) obesity due to excess calories, Z00.00 - Encounter for general adult medical examination without abnormal findings IRON PROFILE Today E28.2 - Polycystic ovarian syndrome, E66.01 - Morbid (severe) obesity due to excess calories, Z00.00 - Encounter for general adult medical examination without abnormal findings Folate Today E28.2 - Polycystic ovarian syndrome, K31.84 - Gastroparesis Microalbumin, Random (w Creat) Today O14.90 - Unspecified pre-eclampsia, unspecified trimester Referrals Gastroenterology Referral K21.9 - Gastro-esophageal reflux disease without esophagitis, K31.84 - Gastroparesis, Z96.89 - Presence of other specified functional implants Sleep Medicine Referral G47.33 - Obstructive sleep apnea (adult) (pediatric) Allergy & Immunology Referral J30.9 - Allergic rhinitis, unspecified, J45.909 - Unspecified asthma, uncomplicated, Z91.030 - Bee allergy status Medications: New albuterol sulfate 2.5 mg (3 mL) inhalation Q6H PRN 180 mL 11RF wheezing cetirizine (Zyrtec) 10 mg PO DAILY PRN 90 caps 2RF allergy symptoms fluticasone propion-salmeterol 500-50 mcg/dose (Advair Diskus) 1 inh inhalation Q12H 60 ea 11RF albuterol sulfate 90 mcg/actuation 2 puffs inhalation Q6H PRN 8.5 grams 11RF shortness of breath or wheezing cholecalciferol (vitamin D3) 50 mcg PO DAILY 90 caps 3RF
[2025-03-03 10:57] VITALS: BP 98/62; PULSE 86; RESP 16; TEMP 36.2; O2SAT 97; BMI 38.0
--- OUTSIDE RECORDS SUMMARY | 2025-03-03 12:49 | XMS_ITS | Data Portability ---
Author Organization [place] [facility] [address] [place] Address [address] [place] [address] Assessment Encounter Date Assessment Date Assessment LastModified by Organization Details LastModified Time 03/06/2023 03/06/2023 32-year-old female presents urgent care with complaint of left shoulder pain. History and exam are consistent with rotator cuff tendinitis. After discussion regarding treatment options she will be provided orders for physical therapy and prescription anti-inflammato ry. She is advised to use medication with caution towards gastropathy and fluid retention. Follow-up with one of our shoulder specialist in the next 3 to 4 weeks. Patient was seen and evaluated by Carmella Lobo MS, PA-C in indirect conjuction with Documenting Provider: Osmel Owen MD . He/She agrees with history, physical examination, tests/diagnosti c imaging, and treatment plan. Not available 03/06/2023 16:11:07 Plan of Treatment Reminders Order Date Submit Date Provider Last Modified By Organization Details Last Modified Time Details Appointments None recorded. Lab None recorded. Referral None recorded. Procedures None recorded. Surgeries None recorded. Imaging XR, shoulder, 2 or more view 2022 023 [email or web address] [facility], [address], [place], [address], 3 16:50:44 Medication Orders meloxicam 15 mg tablet 2022 023 ANUP [id number], [phone] [place], [address], 3 16:11:46 Patient TargetsNo targets recorded. Patient Instructions Encounter Date Encounter Id Patient Instructions Last Modified By Organization Details Last Modified Time 03/06/2023 [id number] physical therapy * - Diagnosis: Left shoulder pain secondary to rotator cuff tendinitis Evaluate and treat as indicated to reduce pain and to improve mobility, range of motion, and function. Please teach a home exercise plan and incorporate PT into patient's exercise routine. 2-3 sessions weekly for 6 weeks. [email or web address] Not available 03/13/2023 16:02:54 Three-view x-ray study of left shoulder obtained during today's urgent care encounter show no evidence for fracture or dislocation. Her AC joint is at the upper limits of normal. There is no osteolytic process nor periosteal reaction that I can appreciate. Not available 03/06/2023 16:10:18 Reason for Referral None Reported. Problems Name Problem SNOMED Code Status Onset Date Resolution Date Notes Provider Name and Address Organization Details Recorded Time Pain of left shoulder joint 554887189730112 09 Active 2022 CARMELLA LOBO PA-C [address], [place], [address] , [place] [facility] 3 16:11:07 Problem Notes None recorded. Procedures Surgical History Date Name Laterality Status Provider Name and Address Organization Details Recorded Time 04/02/19 17 cholecystectomy completed Ana Walsh [place] [facility] 03/06/2023 15:53:47 Imaging Results None recorded. Procedure Notes None recorded. Medical Equipment None Reported. Allergies Allergen ID Allergen Name Allergen Category Reaction Reaction Severity Criticality Documentation Date Start Date Code Code System Note Provider Name and Address Organization Details Recorded Time 62279 Reglan medicatio n Not available Not available Not available 03/06/2023 9230 RxNorm Ana Walsh [facility], [place] - [facility] 3 15:46:09 Medications Name Sig Start Date Stop Date Status Note LastModified by Organization Details LastModified Time medroxyprog esterone 10 mg tablet TAKE 1 TABLET BY MOUTH DAILY FOR 10 DAYS 03/06 completed Not Available Not Available Not Available metformin 500 mg tablet PLEASE SEE ATTACHED FOR DETAILED DIRECTION S active Not Available Not Available No t Available acetaminoph en 325 mg tablet TAKE 2 TABLETS BY MOUTH EVERY 6 HOURS NEEDED FOR MILD PAIN active Not Available Not Available No t Available albuterol sulfate 2.5 mg/3 mL (0.083 %) solution for nebulizatio n INHALE 1 VIAL VIA NEBULIZER EVERY 6 HOURS NEEDED FOR WHEEZING active Not Available Not Available No t Available sucralfate 100 mg/mL oral suspension TAKE 10 ML BY MOUTH THREE TIMES DAILY BEFORE MEAL(S) AND AT BEDTIME FOR 14 DAYS 03/06 completed Not Available Not Available Not Available meloxicam 15 mg tablet Take 1 tablet every day by oral route. 2022 active Not Available Not Available Not Avai lable ondansetron HCl 4 mg tablet TAKE 1 TABLET BY MOUTH EVERY 8 HOURS NEEDED FOR NAUSEA AND VOMITING FOR 5 DAYS active Not Available Not Available No t Available prednisone 20 mg tablet PLEASE SEE ATTACHED FOR DETAILED DIRECTION S 03/06 completed Not Available Not Available Not Available penicillin V potassium 500 mg tablet TAKE 1 TABLET 4 TIMES A DAY UNTIL FINISHED 03/06 completed Not Available Not Available Not Available acetaminoph en 300 mg-codeine 30 mg tablet TAKE 1 TABLET BY MOUTH EVERY 6 HOURS NEEDED FOR PAIN 03/06 completed Not Available Not Available Not Available albuterol sulfate HFA 90 mcg/actuati on aerosol inhaler INHALE 2 PUFFS EVERY 4 HOURS NEEDED FOR WHEEZING active Not Available Not Available No t Available norethindro ne (contracept donnie) 0.35 mg tablet TAKE 1 TABLET BY MOUTH EVERY DAY 03/06 completed Not Available Not Available Not Available oxycodone 5 mg tablet TAKE 1 TABLET BY MOUTH EVERY 6 HOURS NEEDED FOR PAIN 03/06 completed Not Available Not Available Not Available famotidine active Not Available Not Av ailable Not Available Advair Diskus active Not Available Not Available Not Available dexlansopra zole 60 mg capsule,bip hase delayed release TAKE 1 BY MOUTH ONCE DAILY TAKE ON EMPTY STOMACH, WAIT 30 MINUTES AND THEN EAT TO ACTIVATE MEDICATIO N active Not Available Not Available No t Available Dexilant active Not Available Not Avai lable Not Available Wixela Inhub 500 mcg-50 mcg/dose powder for inhalation INHALE 1 DOSE BY MOUTH TWICE DAILY. RINSE MOUTH AFTER USE active Not Available Not Available No t Available Vitals Date Recorded Body weight Body mass index (BMI) Body height Provider Name and Address Organization Details Last Updated DateTime 03/06/2023 423456.17 g 41.2 kg/m2 162.[address] [place] [facility], 03/06/2023 15:49:02 Social History None recorded. Functional Status Question Answer Note LastModified by Organizat ion Details LastModified Time Do you use any illicit or recreational drugs? No Information not available 03/06/2023 Do you or have you ever used any other forms of tobacco or nicotine? No Information not available 03/06/2023 What is your level of alcohol consumption? None Information not available 03/06/2023 Mental Status None recorded. Family History Relationship Description Onset Age of this Age Resolved Age Notes LastModified by Organization Details LastModified Time Mother Arthritis Not availabl e 03/06/2023 15:49:55 Mother Rheumatism Not availab le 03/06/2023 15:50:34 Father Heart disease Not available 2022 15:50:03 Father Hyperlipidem ia Not available 2022 15:50:14 Father Hypertensive disorder Not available 2022 15:50:21 Medical History Condition Response Asthma Y Gynecological HistoryNo gynecological history recorded. Obstetrics History GPAL:G 0 P 0 0 0 0 Past Encounters Encounter ID Performer Location Encounter Start Date Encounter Closed Date Diagnosis/Indication Diagnosis SNOMED-CT Code Diagnosis ICD10 Code Diagnosis IMO Codes Diagnosis Note [id number] CARMELLA LBOO PA-C [facility] [address] [place] [id number] 03/06/2023 15:30:54 03/06/2023 16:12:23 Pain of left shoulder joint [id number] M25.512 Health Concerns Section Related Observation LastModified by Organization Detai ls LastModified Time None Recorded Concern Status LastModified by Organization Details LastModified Time None Recorded Advance Directives Directive None Recorded Payers Insurance Date Sequence Insurance Name Policy Number Policy Morrison Covered Member ID Morrison Member ID Guarantor Name 04/02/[address] [place] [address] [id number] Joann Acuna [id number] Joann Acuna Notes Date Note Type Note Provider Name and Address Organization Details Recorded Time 03/06/2023 text/html 32-year-old female presents to urgent care with complaint of left shoulder pain. She reports the onset of her symptoms approximately 1 week ago. There is no specific injury accident or trauma. Her pain is experienced at the left-sided glenohumeral joint with radiation of pain into the upper arm as far as the elbow. She reports that as a small child her mom told her that she had dislocations of the shoulder. Throughout adulthood she has not dealt with any shoulder problems. She denies any other surgery fracture or need for medical attention to the left shoulder. So far she has treated this most recent pain with activity level modification, ice, heat, and Tylenol alternating with ibuprofen. There is no involvement of the cervical spine. CARMELLA LOBO PA-C [address], [place], [address], [place] [facility] 03/06/2023 16:12:26 OBGyn Episode No OBEpisode recorded.
--- OUTSIDE RECORDS SUMMARY | 2025-03-03 12:49 | XMS_ITS | Data Portability ---
Author Organization [place] [facility] Address [address] [place] [phone] Care Team Providers Care Prosthetic Assistant Name Role Phone GRICEL YUN Primary Care Provider [phone] Assessment No assessment recorded. Plan of Treatment Reminders Order Date Submit Date Provider Last Modified By Organization Details Last Modified Time Details Appointments None record ed. Lab None record ed. Referral None record ed. Procedures None record ed. Surgeries None record ed. Imaging None record ed. Medication Orders None record ed. Patient TargetsNo targets recorded. Patient Instructions Encounter Date Encounter Id Patient Instructions Last Modified By Organization Details Last Modified Time 01/16/2024 4 gastroparesis: care instructions [email or web address] Not available 01/16/2024 13:59:05 Reason for Referral None Reported. Problems Name Problem SNOMED Code Status Onset Date Resolution Date Notes Provider Name and Address Organization Details Recorded Time Gastroparesis syndrome 908510136 Active 2023 Adam Muir MD [address], [place], [address] , [facility] 13:44:01 Problem Notes None recorded. Procedures Surgical History Date Name Laterality Status Provider Name and Address Organization Details Recorded Time Gallbladder Surgery completed Meredith Robbins [place] [facility] 01/16/2024 13:32:56 laparoscopic removal of gastric stimulation electrodes of lesser curvature of stomach completed Meredith Robbins [place] [facility] 01/16/2024 13:34:01 excision of uterine polyp completed Meredith Robbins [place] [facility] 01/16/2024 13:34:41 Imaging Results None recorded. Procedure Notes None recorded. Medical Equipment None Reported. Allergies Allergen ID Allergen Name Allergen Category Reaction Reaction Severity Criticality Documentation Date Start Date Code Code System Note Provider Name and Address Organization Details Recorded Time 46 Reglan medicatio n Not available Not available Not available 01/16/2024 9230 RxNorm Meredithruddy rowland [place] - [facility] 13:23:43 Medications Name Sig Start Date Stop Date Status Note LastModified by Organization Details LastModified Time amoxicillin 500 mg capsule TAKE 1 CAPSULE BY MOUTH THREE TIMES A DAY FOR 7 DAYS 01/15 completed Not Available Not Available Not Available medroxyprog esterone 10 mg tablet TAKE 1 TABLET BY MOUTH DAILY FOR 10 DAYS 01/15 completed Not Available Not Available Not Available metformin 500 mg tablet PLEASE SEE ATTACHED FOR DETAILED DIRECTION S active Not Available Not Available No t Available doxycycline hyclate 100 mg capsule TAKE 1 CAPSULE BY MOUTH TWICE A DAY FOR 10 DAYS 01/15 completed Not Available Not Available Not Available sucralfate 100 mg/mL oral suspension TAKE 10 ML BY MOUTH 4 TIMES DAILY (BEFORE MEALS AND NIGHTLY) FOR 30 DAYS. 01/15 completed Not Available Not Available Not Available ondansetron HCl 4 mg tablet TAKE 1 TABLET BY MOUTH EVERY 8 HOURS NEEDED FOR NAUSEA AND VOMITING FOR 5 DAYS active Not Available Not Available No t Available famotidine 40 mg tablet TAKE 1 TABLET BY MOUTH TWICE A DAY active Not Available Not Available No t Available prednisone 20 mg tablet TAKE 2 TABLETS BY MOUTH EVERY DAY FOR 5 DAYS 01/15 completed Not Available Not Available Not Available metronidazo le 500 mg tablet TAKE 1 TABLET BY MOUTH TWICE DAILY X 10 DAYS, AVOID ALCOHOL 01/15 completed Not Available Not Available Not Available norethindro ne acetate 5 mg tablet TAKE 1/2 TABLET TODAY DAILY UNTIL PROCEDURE active Not Available Not Available No t Available levofloxaci n 500 mg tablet TAKE 1 TABLET BY MOUTH EVERY DAY X 14 DAYS 01/15 completed Not Available Not Available Not Available albuterol sulfate HFA 90 mcg/actuati on aerosol inhaler INHALE 2 PUFFS EVERY 4 HOURS NEEDED FOR WHEEZING active Not Available Not Available No t Available diazepam 5 mg tablet TAKE ONE TABLET BY MOUTH ONE HOUR PRIOR TO PROCEDURE 01/15 completed Not Available Not Available Not Available nitrofurant oin monohydrate /macrocryst als 100 mg capsule TAKE 1 CAPSULE BY MOUTH TWICE A DAY FOR 5 DAYS 01/15 completed Not Available Not Available Not Available lansoprazol e active 60 mg Not Available Not Available Not Available dexlansopra zole 60 mg capsule,bip hase delayed release PLEASE SEE ATTACHED FOR DETAILED DIRECTION S 01/15 completed Not Available Not Available Not Available Wixela Inhub 500 mcg-50 mcg/dose powder for inhalation INHALE 1 DOSE BY MOUTH TWICE DAILY. RINSE MOUTH AFTER USE active Not Available Not Available No t Available Vitals Date Recorded Body weight Body mass index (BMI) Body height Systolic And Diastolic Provider Name and Address Organization Details Last Updated DateTime 01/16/2024 924230.9 g 42.3 kg/m2 165.1 cm 98/70 mm[Hg] Meredith Robbins [place] [facility] 01/16/2024 13:31:46 Social History Question Answer Notes LastModified by Organizat ion Details LastModified Time Tobacco Smoking Status Never Smoker Meredith rowland [place] [facility] 01/16/2024 13:26:56 If You Are , What Was Your Level Of Alcohol Consumption Prior To ? None [email or web address] Information not available 01/16/2024 Are You Blind Or Do You Have Difficulty Seeing? No [email or web address] Information not available 01/16/2024 What Is Your Level Of Caffeine Consumption? Moderate Information not available 01/16/2024 How Many Times In The Past Year Have You Used An Illegal Drug Or Used A Prescription Medication For Nonmedical Reasons? 0 [email or web address] Information not available 01/16/2024 Has Tobacco Cessation Counseling Been Provided? No [email or web address] Information not available 01/16/2024 Sex: Unknown Functional Status Question Answer Note LastModified by Organizat ion Details LastModified Time Do you use any illicit or recreational drugs? No [email or web address] Information not available 01/16/2024 Do you or have you ever used any other forms of tobacco or nicotine? No [email or web address] Information not available 01/16/2024 What is your level of alcohol consumption? None Information not available 01/16/2024 Are you able to care for yourself independently? Yes Information not available 01/16/2024 Do you or have you ever used any nicotine-free cigarettes, vape, or chewing tobacco? No [email or web address] Information not available 01/16/2024 Mental Status None recorded. Family History Nothing Reported. Medical History Condition Response Coronary Artery Disease N Gout N Kidney Stones N Hyperthyroidism N Depression N COPD N Hypothyroidism N Anemia N Deep Vein Thrombosis N Anxiety Disorder N Diabetes N Autoimmune disease N Bleeding Disorder N Arthritis N Seizures/Epilepsy N Tuberculosis N Cancer N Stroke N Diverticulitis N Asthma Y Reflux/GERD Y High Cholesterol N Hepatitis N Liver Disease Y Heart Disease N Bronchitis N Pulmonary Embolism N Headaches Y Hypertension N Kidney Disease N Gynecological HistoryNo gynecological history recorded. Obstetrics History GPAL:G 0 P 0 0 0 0 Past Encounters Encounter ID Performer Location Encounter Start Date Encounter Closed Date Diagnosis/Indication Diagnosis SNOMED-CT Code Diagnosis ICD10 Code Diagnosis IMO Codes Diagnosis Note 4 MD Arianne Edmond Office [address] [facility] [address] [place] [address] 01/16/2024 13:09:25 01/16/2024 13:46:40 Gastroparesis syndrome 067872671 K31.84 Ms. Acuna is a 33 year old woman with a long history of gastropare sis. She had a gastric stimulator placed in 2016 at [facility] and her generator was replaced in 2022. She continues to have intermitte nt bloating, but she has not had nausea or vomiting. She has significan t reflux and intermitte nt aspiration since she has been off of Dexilant. She currently takes famotidine and lansoprazo le. On examinatio n, the gastric stimulator is in the left mid abdomen with the following settings: Impedence 472, 6.1V, 12.9 mA, Rate 28, Cycle on 4 seconds, Cycle off 1 second. She is doing relatively well with respect to her gastropare sis and I do not think that she needs a stimulator adjustment at this time. She will follow up with the GI motility team at [facility] later this month and she is interested in a pyloromyot ronald if possible. She will follow up with me in 6 months. Total time with the patient, chart review communicat ion, counseling and documentat ion 45 minutes. Health Concerns Section Related Observation LastModified by Organization Detai ls LastModified Time None Recorded Concern Status LastModified by Organization Details LastModified Time None Recorded Advance Directives Directive None Recorded Payers Insurance Date Sequence Insurance Name Policy Number Policy Morrison Covered Member ID Morrison Member ID Guarantor Name 01/16/2024 1 [employer] [id number] Mookie Acuan [id number] Joann Millen Notes Date Note Type Note Provider Name and Address Organization Details Recorded Time 01/16/2024 text/html Ms. Acuna is a 33 year old woman with a long history of gastroparesis. She had a gastric stimulator placed in 2016 at [facility] and her generator was replaced in 2022. She continues to have intermittent bloating, but she has not had nausea or vomiting. She has significant reflux and intermittent aspiration since she has been off of Dexilant. She currently takes famotidine and lansoprazole. Adam Muir MD [address], [place], [address], [facility] 01/16/2024 13:59:33 OBGyn Episode No OBEpisode recorded.
--- OUTSIDE RECORDS SUMMARY | 2025-03-03 12:49 | XMS_ITS | Data Portability ---
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 Plan of Treatment Reminders Order Date Submit Date Provider Last Modified By Organization Details Last Modified Time Details Appointments None record ed. Lab None record ed. Referral None record ed. Procedures None record ed. Surgeries None record ed. Imaging None record ed. Medication Orders None record ed. Patient TargetsNo targets recorded. Patient InstructionsNo instructions recorded. Reason for Referral None Reported. Results Created Date Observation Date Name Description Value Unit Range Abnormal Flag Note LastModifiedBy Organization Detail LastModifiedTime 11/26/19 24 11/22/2023 NM, gastr ic empty ing scan No observ ation record ed. [email or web address] Not Available 2023 15:37:44 11/26/19 24 11/22/2023 NM, gastr ic empty ing scan No observ ation record ed. [email or web address] Not Available 2023 08:27:59 11/28/1911/22/2023 NM, gastr ic empty ing scan No observ ation record ed. dleenen [facility] [address], [place], [address], 11/28/2023 12:11:36 Result Notes None recorded. Problems Name Problem SNOMED Code Status Onset Date Resolution Date Notes Provider Name and Address Organization Details Recorded Time Idiopathic gastroparesis 688145949 Active 2023 JOSE CENTENO MD [address] [place], [phone], [facility] 09:38:51 Problem Notes None recorded. Procedures Surgical History Date Name Laterality Status Provider Name and Address Organization Details Recorded Time 10/19/19 24 BLANK TEMPLATE completed JOSE CENTENO MD [address] [place], [address], [facility] 10/22/2023 21:33:23 gastric emptying study completed [facility] 10/19/2023 09:03:02 laparotomy with replacement of gastric stimulation electrodes from lesser curvature completed [facility] 10/19/19 24 09:03:42 laparoscopic cholecystectomy completed [facility] 09:03:59 ultrasonography guided transcervical radiofrequency ablation of uterine fibroid completed [facility] 10/19/2023 09:04:39 Imaging Results None recorded. Procedure Notes None recorded. Medical Equipment None Reported. Allergies Allergen ID Allergen Name Allergen Category Reaction Reaction Severity Criticality Documentation Date Start Date Code Code System Note Provider Name and Address Organization Details Recorded Time 0078141 Reglan medicatio n seizure moderate high 10/19/2023 9230 RxNorm [facility], [facility] 09:00:03 Medications Name Sig Start Date Stop Date Status Note LastModified by Organization Details LastModified Time amoxicillin 500 mg capsule TAKE 1 CAPSULE BY MOUTH THREE TIMES A DAY FOR 7 DAYS 10/18 completed Not Available Not Available Not Available medroxyprog esterone 10 mg tablet TAKE 1 TABLET BY MOUTH DAILY FOR 10 DAYS 10/18 completed Not Available Not Available Not Available metformin 500 mg tablet PLEASE SEE ATTACHED FOR DETAILED DIRECTION S 10/18 completed Not Available Not Available Not Available acetaminoph en 325 mg tablet TAKE 2 TABLETS BY MOUTH EVERY 6 HOURS NEEDED FOR MILD PAIN active Not Available Not Available No t Available doxycycline hyclate 100 mg capsule TAKE 1 CAPSULE BY MOUTH TWICE A DAY FOR 10 DAYS 10/18 completed Not Available Not Available Not Available [...] BY MOUTH EVERY DAY FOR 5 DAYS 10/18 completed Not Available Not Available Not Available penicillin V potassium 500 mg tablet TAKE 1 TABLET 4 TIMES A DAY UNTIL FINISHED 10/18 completed Not Available Not Available Not Available metronidazo le 500 mg tablet TAKE 1 TABLET BY MOUTH TWICE DAILY X 10 DAYS, AVOID ALCOHOL 10/18 completed Not Available Not Available Not Available acetaminoph en 300 mg-codeine 30 mg tablet TAKE 1 TABLET BY MOUTH EVERY 6 HOURS NEEDED FOR PAIN 10/18 completed Not Available Not Available Not Available norethindro ne acetate 5 mg tablet TAKE 1/2 TABLET DAILY UNTIL PROCEDURE active Not Available Not Available No t Available levofloxaci n 500 mg tablet TAKE 1 TABLET BY MOUTH EVERY DAY X 14 DAYS 10/18 completed Not Available Not Available Not Available albuterol sulfate HFA 90 mcg/actuati on aerosol inhaler INHALE 2 PUFFS EVERY 4 HOURS NEEDED FOR WHEEZING/ SHORTNESS OF BREATH active Not Available Not Available No t Available diazepam 5 mg tablet TAKE ONE TABLET BY MOUTH ONE HOUR PRIOR TO PROCEDURE 10/18 completed Not Available Not Available Not Available oxycodone 5 mg tablet TAKE 1 TABLET BY MOUTH EVERY 6 HOURS NEEDED FOR PAIN 10/18 completed Not Available Not Available Not Available nitrofurant oin monohydrate /macrocryst als 100 mg capsule TAKE 1 CAPSULE BY MOUTH TWICE A DAY FOR 5 DAYS 10/18 completed Not Available Not Available Not Available dexlansopra zole 60 mg capsule,bip hase delayed release PLEASE SEE ATTACHED FOR DETAILED DIRECTION S active Not Available Not Available No t Available Wixela Inhub 500 mcg-50 mcg/dose powder for inhalation INHALE 1 DOSE BY MOUTH TWICE DAILY. RINSE MOUTH AFTER USE active Not Available Not Available No t Available Vitals Date Recorded Body height Body mass index (BMI) Body weight Provider Name and Address Organization Details Last Updated DateTime 10/19/2023 165.1 cm 41.6 kg/m2 850332.09 g Eleuterio Fletcher [facility] ast 10/19/2023 08:59:29 Social History Question Answer Notes LastModified by Organizat ion Details LastModified Time Tobacco Smoking Status Never Smoker Eleuterio rowland, [facility] 10/19/2023 09:02:45 If You Are , What Was Your Level Of Alcohol Consumption Prior To ? None Information not available 10/19/2023 What Is Your Level Of Caffeine Consumption? Occasional Information not available 10/19/2023 What Was The Date Of Your Most Recent Tobacco Screening? 10/19/2023 Information not available 10/19/2023 Has Tobacco Cessation Counseling Been Provided? No Information not available 10/19/2023 Sex: Unknown Functional Status Question Answer Note LastModified by Organizat ion Details LastModified Time Do you use any illicit or recreational drugs? No Information not available 10/19/2023 Do you or have you ever used any other forms of tobacco or nicotine? No Information not available 10/19/2023 What is your level of alcohol consumption? None Information not available 10/19/2023 Mental Status None recorded. Family History Relationship Description Onset Age of this Age Resolved Age Notes LastModified by Organization Details LastModified Time Father No current problems or disability Not available 10/18 09:02:14 Mother No current problems or disability Not available 10/18 09:02:14 Medical History Condition Response HIV or AIDS N DIVERTICULITIS N STROKE N LUNG CANCER N DIABETES N COPD N OTHER LUNG DISEASE N HYPERTHYROIDISM N HAS PACEMAKER N BLEEDING DISORDER N aortic aneurysm N HYPOTHYROIDISM N blood transfusion N CLAUSTROPHOBIC N BOWEL PROBLEMS N PANIC ATTACKS N COLON CANCER N ULCERS N BREAST CANCER N GERD/REFLUX Y other N OSTEOPOROSIS N HYPERCHOLESTEROLEMIA N ARTHRITIS N cancer N no past medical history reported N PERIPHERAL VASCULAR DISEASE N depression N HEADACHE N SEIZURE DISORDER N CAD N BLOOD CLOTS N ASTHMA Y CATARACTS N GOUT N DEFECTS OR INHERITED DISEASES N HEART CONDITION N ANEMIA N GI PROBLEMS N HEART MURMUR N KIDNEY DISEASE N LIVER DISEASE N ULCERATIVE COLITIS N CVA N HYPERTENSION N ANXIETY DISORDER N ATRIAL FIBRILLATION N PULMONARY EMBOLISM N OSTEOARTHRITIS N TUBERCULOSIS N GLAUCOMA N Gynecological HistoryNo gynecological history recorded. Obstetrics History GPAL:G 0 P 0 0 0 0 Past Encounters Encounter ID Performer Location Encounter Start Date Encounter Closed Date Diagnosis/Indication Diagnosis SNOMED-CT Code Diagnosis ICD10 Code Diagnosis IMO Codes Diagnosis Note [id number] JOSE CENTENO MD _[facility] [address] [place] [phone] 10/19/2023 08:46:20 10/19/2023 15:04:47 Idiopathic gastroparesis 087857052 K31.84 33F with idiopathet ic gastropare sis presenting for evaluation . She had a GES placed with Dr. Muir on 09/11/2016. She had a battery exchange September 2022. She reports she had stable symptoms until May when she had worsening GERD symptoms and has so far had an UGI and EGD. I do not have any of her records so it is challengin g to make an assessment without this informatio n. Her impedence is adequate on re-program joey today. She was hoping for an increase in her stimulator so I went up on thefrequen cy to 28Hz. These are fairly high settings and there is little room to increase it anymore. I think her BMI of 41.6 is playing a significan t role in her GERD and symptoms and she should consider weight loss. - repeat gastric emptying scan- obtain medical records- weight loss- f/u in 6 weeks to discuss next steps - OK for telehealth given distance [id number] JOSE CENTENO MD [facility] [address] [place] [phone] 11/26/2023 15:39:43 11/29/2023 14:33:15 Idiopathic gastroparesis [id number] K31.84 33F with idiopathet ic gastropare sis presenting for evaluation . She had a GES placed with Dr. Muir on 09/11/2016. She had a battery exchange September 2022.She was last seen 10/19/23 where she had concern for worsening symptoms. I increased her frequency to 28Hz. She reports initial improvemen t but then stopped her PPi 2/2 insurance reasons and her GERD symptoms worsened. She is working with her GI/insuran ce to get back on the PPi. She is also considerin g bariatric surgery as her BMI > 40 is likely playing a role in her GERD.We had a discussion about additional surgical options. She already had a cholecyste ctomy. I am not sure if H. Pylori has been ruled out. She reports she was told she had bile reflux but her EGD report appears to be incomplete unfortunat nishant. Her repeat gastric emptying study was normal so a pyloroplas ty would unlikely help her symptoms. Her best option may be a gastric bypass +/- distal gastrectom y. She is hesitant to an additional surgery at this time.We need to get her back on her PPi first. She should continue to try to work on her weight loss. She will follow-up with me after she gets back on her medicine and we will re-evaluat e her symptoms. It might be reasonable to re-scope her as well. - f/u after resumes PPI to re-evaluat e symptoms Total time spent in management today was more than 30 minutes; time spent in reviewing necessary documents including labs/studi es/consult s etc, assessing, counseling , educating, discussing medication benefit/si de effects, decision making, treatment plans and alternativ es, and documentat ion. Health Concerns Section Related Observation LastModified by Organization Detai ls LastModified Time None Recorded Concern Status LastModified by Organization Details LastModified Time None Recorded Advance Directives Directive None Recorded Payers Insurance Date Sequence Insurance Name Policy Number Policy Morrison Covered Member ID Morrison Member ID Guarantor Name 11/24/2023 1 [place] [id number] Mookie Acuna [id number] Joann Acuna Notes Date Note Type Note Provider Name and Address Organization Details Recorded Time 10/19/2023 text/html 33F presenting to establish care for gastroparesis. Unfortunately she did not bring any of her records. She reports symptoms began in [id number]. She initially started with heartburn and regurgitation - was evaluated by GI. Had several EGDs which revealed esophagitis and 'lots of acid'. She tried multiple PPis - Dexilant most effective. She was also told she was 'close to having [facility]'. She reports a later endoscopy found a bezoar in the gastric body. She was diagnosed with gastroparesis and was started on reglan and underwent 3 rounds of pyloric botox injections - 1st round helpful, 2nd round less helpful and 3rd dose did not help.She had a HIDA scan which showed biliary dyskinesia and had a lap CCY [place] [address] Holland - some improvement in symptoms.She ultimately underwent GES placement with Dr. Muir on 09/11/2016. She had a battery exchange September 2022. She was seeing him every 6 months for follow-up and was told she had 'pretty high settings'. In May she had worsening GERD symptoms. She had recurrent regurgitation, aspiration and asthma. She wakes up with acid taste in her mouth and chefornak green/yellow fluid as well. She remains on Dexilant daily and famotidine BID. She has her last meal at 7pm and doesn't lie flat after meals. She denies dysphagia. She also reports recurrent fullness/bloating. This had previously improved with the stimulator. There is also increase in nausea/vomiting. She tolerates 1 meal a day and then snacks the rest of the day. She reports she had an UGI that showed a small hiatal hernia and abnormal esophagal motility. She had an EGD last week that she reports showed bile reflux and they were testing her for EOE. She also said there had been discussion about a possible gastric bypass. PMHx PCOS, asthma, GERDPSHx Uterine fibroid removalNon smoker, no ETOH, no IVDUper jael - pre-op PACU nurse - [facility] in [place], [place] - 1.5 hours away GI doctor - Ruddy Mathur, Dr. Falk was previous GCSI - 29 (nausea/vomiting 6, fullness/early satiety, 15, bloating/distension 8) JOSE CENTENO MD [address] [place] [address], [phone], [facility] 10/22/2023 21:46:21 11/26/2023 text/html 33F presenting for follow-up. She was last seen 10/19/23. We went up on her settings at her last appointment. She thinks she initially noticed some improvements. Unfortunately she had insurance problems and is now off her Dexilant. She endorses nausea, abdominal pain/distension and heartburn. She is taking OTC nexium and famotidine. Her weight is stable at 250lbs. OSH reportsUGI 09/08/23 - mild esophageal dysmotility, small hiatal herniaEGD 10/11/23 - black/white photos. 'Impression: Biopsies were taken with a cold forceps for histology in the middle third of the esophagus and the lower third of the esophagus'.Patient reports she was told she had bile reflux'Biopsies mid/distal esophagus - squamous mucosa - no abnormalities.GES 11/22/23 - 2% remaining at 4 hours.[facility] CCY 2015. Patient was interviewed over the phone after obtaining the consent and confirming the name and the date of .informed that insurance will be billed.Name of persons on the call: Evan location: OfficePatient location: HomeI, as the provider, have informed my patient on how they can see a provider in-person in the event of an emergency. JOSE CENTENO MD [address] [place] [address], [phone], [facility] 11/27/2023 13:30:38 OBGyn Episode No OBEpisode recorded.
== END 2025-03-03 12:00 | disposition home or self-care (01) ==
LOC: HO.HMCHD 10:54
PROVIDERS: PCP Internal Medicine; Visit Provider Internal Medicine
DX: Z00.00 Encounter for general adult medical examination without abnormal findings (principal); E66.01 Morbid (severe) obesity due to excess calories; Z68.38 Body mass index [BMI] 38.0-38.9, adult; E28.2 Polycystic ovarian syndrome

== ENCOUNTER → 2025-03-03 10:53 | Outpatient (BNVA) | payer BC, SELFPAY | PROVIDERS: PCP Internal Medicine; Visit Provider Internal Medicine | DX: Z00.00 Encounter for general adult medical examination without abnormal findings (principal); E28.2 Polycystic ovarian syndrome; E66.01 Morbid (severe) obesity due to excess calories; K21.9 Gastro-esophageal reflux disease without esophagitis; M79.89 Other specified soft tissue disorders; R01.1 Cardiac murmur, unspecified; K31.84 Gastroparesis; G47.33 Obstructive sleep apnea (adult) (pediatric); J45.909 Unspecified asthma, uncomplicated; Z13.31 Encounter for screening for depression; Z96.89 Presence of other specified functional implants; Z87.59 Personal history of other complications of pregnancy, childbirth and the puerperium; Z91.030 Bee allergy status | CPT/HCPCS: 96127 ==

== ENCOUNTER 2025-03-10 15:21 | Outpatient (AMB) | payer BC, SELFPAY ==
--- OUTSIDE RECORDS SUMMARY | 2024-01-16 08:00 | XMS_ITS ---
Author Organization [facility], [facility] Address [address] [address] Care Team Providers Care Trend Investigator Name Role Phone Nanci Melendez Primary Care Provider Dr. Adam Ford Unavailable [phone] Vital Signs Blood pressure systolic 98 mm Hg 01/16/20 24 Blood pressure diastolic 70 mm Hg 024 Height 65.00 in 01/16/2024 Weight 254.40 lbs 01/16/2024 BMI 42.33 kg/m2 01/16/2024 BMI Percentile 42.3 % 01/16/2024 Height-cm 165.10 cm 01/16/2024 Weight-kg 115.39 kg 01/16/2024 Encounters Encounter Location Date Provider Diagnosis [facility], [address] [address] 01/16/2024 Adam Muir Gastroparesis K31.84 Assessments Encounter Date Diagnosis (ICD Code) Assessment Notes Treatment Notes Treatment Clinical Notes Section Notes 01/16/2024 Gastroparesis (ICD-10 - K31.84) Plan Of Treatment No Information Progress Notes * ЮЛИЯ RITCHIERADOB:1990 (34 yo F)Acc No.[id number]:01/16/2024 Progress Notes Patient: RAFA CAMARENA Provider: Paulette Muir MD, MPH, FACS :1990 A ge:33 Y S ex:Female Date:01/16/2024 Address:[address], [place], [id number] Pcp:Nanci Melendez Objective: * Vitals: B P: 98/70 mm Hg, Wt: 254.40 lbs, Wt-k.39 kg, Ht: 65.00 in, Ht-cm: 165.10 cm, BMI: 42.33 Index, BMI %: 42.3 %. Assessment: * [facility]: [facility]. [facility] * Electronic signature of Dr. Adam Muir MD on 03/10/2025 at 09:50 PM EST Sign off status: Pending * Provider: Paulette Muir MD, MPH, FACS Date: 1 Generated for Debbie yates/Radha/Delphine on: 05/11/2024 09:50 PM EST
--- OUTSIDE RECORDS SUMMARY | 2024-11-16 04:00 | XMS_ITS ---
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 Adam Ford Unavailable [phone] Migration, Provider Unavailable Unavailable Allergies Allergen (clinical drug ingredient) Drug/Non Drug Allergy documented on EMR Reaction Allergy Type Onset Date Status metoclopramide Reglan Unknown Drug Allergy 01/16/2024 A ctive REASON FOR VISIT EMR-Higinio Medications Medication SIG (Take, Route, Frequency, Duration) Notes Start Date End Date Status Famotidine 40 MG Tablet Oral 01/16/2024 Active Lansoprazole *Pick strength-f orm from [facility] for eRX* 01/16/2024 Active Ondansetron HCl 4 MG Tablet Oral 01/16/2024 Active metFORMIN HCl 500 MG Tablet Oral 01/16/2024 Active Norethindrone Acetate 5 MG Tablet Oral 01/16/2024 Active ProAir HFA 108 (90 Base) MCG/ACT Aerosol Solution Inhalation *Reorder from [facility] for eRx and Interaction Alerts* 01/16/2024 Active WIXELA INHUB 500 MCG-50 MCG/DOSE POWDER FOR INHALATION *Reorder from [facility] for eRx and Interaction Alerts* 01/16/2024 Active Social History Social History Additional Details Category Social Info Options Details Migrated Social History Migrated Social History Alcohol Intake: None 01/16/2024,Tobacco Years: Never smoker 01/16/2024 Encounters Encounter Location Date Provider Diagnosis [facility], [facility] [address] [place] [phone] 11/16/2024 Provider Migration Plan Of Treatment No Information Progress Notes * ЮЛИЯ RITCHIERADOB:1990 (34 yo F)Acc No.[id number]:11/16/2024 Patient: RAFA CAMARENA :1990 A ge:34 Y S ex:Female Address:[address] [place] [address], [place], [phone] Subjective: * Chief Complaints: * E MR-Higinio * Medical History: Problems: Gastroparesis syndrome * Surgical History: Excision of uterine polyp ([id number]) Gallbladder surgery Laparoscopic removal of gastric stimulation electrodes of lesser curvature of stomach ([id number]) * Social History: M igrated Social History: M igrated Social History: Alcohol Intake: None 01/16/2024,Tobacco Years: Never smoker 01/16/2024. * Medications: T akingmetFORMIN HCl 500 MG Tablet Oral Ondansetron HCl 4 MG Tablet Oral ProAir HFA 108 (90 Base) MCG/ACT Aerosol Solution Inhalation , Notes to Pharmacist: *Reorder from [facility] for eRx and Interaction Alerts*Famotidine 40 MG Tablet Oral Lansoprazole , Notes to Pharmacist: *[facility] for [facility]*WIXELA INHUB 500 MCG-50 MCG/DOSE POWDER FOR INHALATION , Notes to Pharmacist: *[facility] for [facility] and Interaction Alerts*Norethindrone Acetate 5 MG Tablet Oral Taking metFORMIN HCl 500 MG Tablet Oral Taking Ondansetron HCl 4 MG Tablet Oral Taking ProAir HFA 108 (90 Base) MCG/ACT Aerosol Solution Inhalation , Notes to Pharmacist: *[facility] for [facility] and Interaction Alerts*Taking Famotidine 40 MG Tablet Oral Taking Lansoprazole , Notes to Pharmacist: *Pick [facility]-form from [facility] for [facility]*Taking WIXELA INHUB 500 MCG-50 MCG/DOSE POWDER FOR INHALATION , Notes to Pharmacist: *[facility] for [facility]Rx and Interaction Alerts*Taking Norethindrone Acetate 5 MG Tablet Oral * Allergies: R josep: Allergy - Onset Date 01/16/2024 * * Date:
[2025-03-10 15:54] VITALS: BP 98/62; PULSE 90; O2SAT 98
--- NOTE | 2025-03-10 15:54 | MHC.OFFVIS ---
Vital Signs 03/10/25 15:54 Height 5 ft 3.25 in BP 98/62 Blood Pressure Location Lt brachial Position Sitting Pulse 90 Pulse Source Pulse Oximeter Pulse Oximetry (%) 98 Oxygen Delivery Method Room Air Intake Visit Reasons: INP-JASVIR Pencil Maker Required: No Accompanied by: Self / Same As Patient Allergies metoclopramide (From REGLAN) Allergy (Intermediate, Verified 03/03/25 11:37) facial spasms HPI Comments Details: 34 year old female presents for a referral of JASVIR by her PCP. 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 She has Gastroparesis, and gastric pacemaker for flare ups. She snores loudly and nudges her to wake up. She goes to bed at 9pm to 1am, and wakes up at 530am for work. She has morning headaches, and cervicalgia which causes radiating pain down her neck. She continues to have acid reflux which has improved since starting Nexium, along with famotide. She She denies rls, parasomnia, abnormal behaviors in her sleep, such as sleep walking and talking. She takes metformin for PCOS. Denies deviated septum, polyps, cysts. Denies smoking and alcohol use. FH [place] palsey Mom + TIA Oct 2024, Dad + Sleep apnea + NC angina 03/2024. [facility] Medical History Preeclampsia Leg swelling Murmur Presence of gastric pacemaker JASVIR (obstructive sleep apnea) Routine medical exam Asthma PCOS (polycystic ovarian syndrome) GERD (gastroesophageal reflux disease) Nondiabetic gastroparesis Morbid obesity Gastric neurostimulator device in situ Surgical History Hx of cervical polypectomy Hx laparoscopic cholecystectomy History of esophagogastroduodenoscopy (EGD) Hx of colonoscopy Family History Mother Arthritis Father Hypertension Son Autism Reactive airway disease Social History (Updated 01/31/24 @ 09:49 by Meredith Meléndez CMA) Housing: House Alcohol intake: current Alcohol intake frequency: holidays/special occasions only Patient Tobacco Use Status: Never used Tobacco e-Cigarette/Vaping Use: Never Used 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al status: employed 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: 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 Physical Exam Vital Signs: Last Vital Signs Pulse 90 03/10/25 15:54 BP 98/62 03/10/25 15:54 Pulse Ox 98 03/10/25 15:54 Oxygen Delivery Method Room Air 03/10/25 15:54 Const General: cooperative, comfortable and no acute distress Nutritional Appearance: average body habitus and obese Orientation/consciousness: patient oriented x3 HEENT Face and sinus: Yes face symmetric Throat: Yes other (mallampti score 3) Eyes Pupils: Equal, round and reactive pupils present Resp Effort & Inspection: normal respiratory effort and able to speak in complete sentences Neuro Other: upper ext bilateral mild tremor General: patient oriented x3 and moves all extremities Cranial nerves: Yes Equal, round and reactive pupils present, Yes Normal accommodation reflex present, Yes Normal facial strength present, Yes Midline tongue present, Yes Ability to bilaterally rotate head present and Yes Ability to bilaterally elevate shoulders present Cognition (Neuro): normal cognition Gait exam (Neuro): Normal gait present Motor exam (neuro): 5/5 motor strength present throughout and Normal motor muscle tone present throughout Deep tendon reflexes (DTR's): Right triceps reflex intensity grade: 2+, Left triceps reflex intensity grade: 2+, Rt Biceps (C5, C6): 2+, Left biceps reflex intensity grade: 2+, Right brachioradialis reflex intensity grade: 2+, Left brachioradialis reflex intensity grade: 2+, Right patellar reflex intensity grade: 2+ and Left patellar reflex intensity grade: 2+ Psych Appearance: grossly normal Mental Status: mental status grossly normal Thought process: Normal thought process present Assessment & Plan Assessment & Plan (1) Excessive daytime sleepiness: Code(s): G47.19 - Other hypersomnia Category: Medical Plan Excessive daytime sleepiness HST r/o jasvir Labs to r/o chronic fatigue and deficiencies. f/u in 3 months Orders: Orders RT home sleep study 03/10/25 G47.19 - Other hypersomnia Patient Instructions: Please complete the following fasting labs to rule out deficiencies. CBC/CMP/ B12/ Vit D/ TSH/ Homocysteine and MMA/ Ferritin. Sleep Hygiene provided: set a scheduled bedtime and wake time to help regulate the circadian rhythm and balance the release of pituitary hormones. Sleep in a dark room, temperatures below 68 degrees, and no devices n bed. Limit caffeinated products 6 hours prior to bed, and limit fluids 2-4 hours prior to bed. Gentle night yoga, diffusing essential oils, and playing soft music can be relaxing. Will request labs from PCP. Coding Level of Care Code New Pt Level 4 (05488) Diagnoses Excessive daytime sleepiness G47.19 Sleep Questionnaire Difficulty falling asleep: No Difficulty staying asleep?: Yes Number of arousals: 2-3 Snoring: Yes Witnessed apneas: Yes Gasping arousals: No Nocturia: Yes GERD: Yes Vivid dreams: No Acting out dreams: No Abnormal behavior in sleep: No Abnormal movements in sleep: No Morning headaches: No Excessive daytime sleepiness: Yes Daytime naps: No Restless legs: No Hallucinations: No Sleep paralysis: No Drop attacks: No Sleep Study: Yes CPAP: No
--- OUTSIDE RECORDS SUMMARY | 2025-03-10 21:47 | XMS_ITS | Clinical Summary ---
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 Name Role Phone Unavailable Primary Care Provider Unavailabl e Immunizations Name Administration Dates Next Due Covid-19 (Pfizer) Dilution Required 04/27/2020,0 04/08/2020 Social History Tobacco Use Types Packs/Day Years Used Date Smoking Tobacco: Never Assessed Sex and Gender Information Value Date Recorded Sex Assigned at Female 04/08/2020 3:39 PM EST Gender Identity Not on file Sexual Orientation Not on file Job Start Date Occupation Industry Not on file Not on file Not on file Plan of Treatment Health Maintenance Due Date Last Done Comments Hepatitis B Vaccines (1 of 3 - 3-dose series) 1988 Hepatitis C Screening 1988 Depression Screening 2000 Preventative Health Evaluation 2006 Cervical Cancer Screening (Pap Smear) 2009 COVID-19 Vaccine (3 - 2024-2 6 season) 2024 04/27/2020, 04/08/2020 Influenza Vaccine (#1) 2024 DTap / Tdap / Td (3 - Td or Tdap) 06/05/2028 06/05/2018, 07/10/2007 Pneumococcal Vaccine Aged Out 06/05/2018, 04/25/2017 No longer eligible based on patient's age to complete this topic RSV Ped < 20 months Aged Out No longe r eligible based on patient's age to complete this topic
--- OUTSIDE RECORDS SUMMARY | 2025-03-10 21:48 | XMS_ITS | Clinical Summary ---
Author Organization 175 [facility] Address [address] [place] [address] Phone Care Team Providers Care Hotel Night Auditor Name Role Phone Nanci Melendez MD Primary Care Provider [phone] Allergies Active Allergy Reactions Criticality Noted Date Comments Metoclopramide 04/04/2016 Facial spasm Other 04/25/2017 Seasonal Allergies Metoclopramide Hcl Other 02/14/2024 Facial spasm Medications albuterol 2.5 mg /3 mL (0.083 %) nebulizer solution Inhale 3 mL (2.5 mg total) by mouth every 4 (four) hours if needed for wheezing. 9 Active albuterol HFA (PROAIR HFA ; PROVENTIL HFA ; VENTOLIN HFA) 90 mcg/actuation inhaler Inhale 2 puffs by mouth every 4 (four) hours if needed. for wheezing Active cholecalcifero l (VITAMIN D-3) 25 mcg (1,000 unit) tablet Take 1 tablet (1,000 Units total) by mouth 1 (one) time each day. Active doxycycline (VIBRAMYCIN) 100 mg capsule Take 1 capsule (100 mg total) by mouth 2 (two) times a day. for 10 days 4 Active metFORMIN (GLUCOPHAGE) 500 mg tablet Take 1 tablet (500 mg total) by mouth 1 (one) time each day with breakfast. 4 Active Contrave 8-90 mg per ER tablet Take 1 tablet by mouth 1 (one) time each day. 4 Active norethindrone (AYGESTIN) 5 mg tablet Take 1 tablet (5 mg total) by mouth 1 (one) time each day. 4 Active ondansetron (ZOFRAN) 4 mg tablet Take 1 tablet (4 mg total) by mouth every 8 (eight) hours if needed for nausea. 20 tablet 1 5 Active lansoprazole (PREVACID) [address] capsule Take 2 capsules (60 mg total) by mouth 1 (one) time each day. Do not crush or chew. 60 each 3 5 026 Active famotidine (PEPCID) 40 mg tablet TAKE 1 TABLET BY MOUTH EVERY DAY 90 tablet 1 5 Active sucralfate (CARAFATE) 100 mg/mL suspension TAKE 10 ML BY MOUTH 4 TIMES A DAY 1 HOUR BEFORE MEALS AND NIGHTLY AT BEDTIME. 3780 mL 1 5 Active famotidine (PEPCID) 40 mg tablet Take 1 tablet (40 mg total) by mouth 1 (one) time each day. 30 each 3 5 025 Discontinued sucralfate (CARAFATE) 100 mg/mL suspension Take 10 mL (1 g total) by mouth 4 (four) times a day (with meals and nightly). Take 1 hour before meals and at bedtime 1200 mL 5 025 Discontinued Active Problems Problem Noted Date Diagnosed Date Fatty liver 02/25/2024 Hypertriglyceridemia 02/25/2024 JASVIR (obstructive sleep apnea) 05/20/2020 Chronic constipation 05/08/2018 Asthma, moderate persistent 06/08/2017 GERD (gastroesophageal reflux disease) 8 Gastroparesis 04/25/2017 Overview (02/25/2024): Biliary dyskinesia, sees Dr. Holland PCOS (polycystic ovarian syndrome) 04/25/2017 Biliary dyskinesia 04/25/2016 Goiter diffuse, nontoxic 02/06/2012 Allergic rhinitis 05/13/2010 Encounters Date Type Department Care Team Description 01/20/2025 Telephone Gastroenterology - [place] [address] [place] [address] [facility] [address] [place] [address] Bibi Cam PA from Last 3 Months Immunizations Immunization Administration Dates Next Due HPV, Quadrivalent 07/10/2007 Hepatitis B (Iritmmi-T-Sfhqw , Recombivax HB-Adult) 19yo and older 01/31/2012,09/06/2011,07/31/2011,01/08,02/09/2000,08/08/1999,08/03/1999 Hepatitis B Pediatric (Enger ix B; Recombivax HB) to less than 20 yo 01/03/2011 Influenza, Unspecified 12/01/2017 MMR, measles mumps and rubel la Live (Priorix; M-M-R II) 12mo and older 08/08/1999,11/21/1989 Meningococcal MCV4P 03/16/2006 PPD Test 02/12/2013, 2,01/31/2012,12/28,09/01/2009 Pneumococcal polysaccharide 23 valent (Pneumovax 23) 2yo and older 06/05/2018,04/25/2017 Td Tetanus diptheria (Tdvax) 7yo and older 08/08/1999 Tdap Tetanus diptheria acell ular pertussis (Boostrix; Adacel) 7yo and older 06/05/2018,07/10/2007 Varicella live (Varivax) 12m o and older 02/25/1997 Surgical History Surgery Date Site/Laterality Comments CHOLECYSTECTOMY 04/21/2016 PROCEDURE: HISTORICAL CHOLECYSTECTOMY; COMMENT: lap OTHER SURGICAL HISTORY 2016 PROCEDURE: HISTORY OTHER; COMMENT: gastroneural gastric pacemaker COLONOSCOPY 03/28/2016 PROCEDURE: HISTORICAL COLONOSCOPY; COMMENT: Gastroparesis, delayed gastric emptying Medical History Medical History Date Comments Allergic rhinitis 05/13/2010 DX:Allergic rh initis Biliary dyskinesia 04/25/2016 DX:Biliary dy skinesia Chronic constipation 05/08/2018 DX:Chronic constipation Fatty liver DX:Fatty liver Gastroparesis 04/25/2017 DX:Gastroparesis ; COMMENT: Biliary dyskinesia, sees Dr. Holland GERD (gastroesophageal reflux disease) 06/08/2017 DX:GERD (gastroesophageal reflux disease) Goiter diffuse, nontoxic 02/06/2012 DX:Goit er diffuse, nontoxic Hypertriglyceridemia DX:Hypertri glyceridemia Asthma, moderate persistent 06/08/2017 DX:A sthma, moderate persistent PCOS (polycystic ovarian syndrome) 04/25/2017 DX:PCOS (polycystic ovarian syndrome) Presence of gastric pacemaker 06/08/2017 DX :Presence of gastric pacemaker; COMMENT: Placed 09/11/2016 JASVIR (obstructive sleep apnea) 05/20/2020 DX :JASVIR (obstructive sleep apnea) Family History Medical History Relation Name Comments Rheum arthritis Mother Uterine cancer Sister Relation Name Status Comments Mother Sister Social History Tobacco Use Types Packs/Day Years Used Date Smoking Tobacco: Never Smokeless Tobacco: Never Comments Unknown Sex and Gender Information Value Date Recorded Sex Assigned at Not on file Legal Sex Female 12:34 AM EST Gender Identity Not on file Sexual Orientation Not on file Last Filed Vital Signs Vital Sign Reading Time Taken Comments Blood Pressure 98/58 02/14/2024 2:37 PM EST Pulse 102 02/14/2024 2:37 PM EST Temperature - - Respiratory Rate - - Oxygen Saturation 98% 02/14/2024 2:37 PM EST Inhaled Oxygen Concentration - - Weight 114 kg (250 lb 9.6 oz) 02/14/2024 2:37 PM EST Height 165.1 cm (5' 5 ) 02/14/2024 2:37 PM EST Body Mass Index 41.7 02/14/2024 2:37 PM EST Plan of Treatment Upcoming Encounters Date Type Department Care Team (Late st Contact Info) Description 04/30/2025 2:00 PM EST Office Visit Bariatric Surgery - [place] 175 [facility] [address] [place] [phone] Alisha Goodrich MD [address] [place] [phone] 08/13/2025 8:50 AM EDT Office Visit Gastroenterology - [address] [facility] [address] [facility] [address] [place] [phone] Bibi Cam PA [address] [facility] [address] [place] [address] Health Maintenance Due Date Last Done Comments HPV Vaccines (2 - 3-dose series) 08/07/2007 07/10/2007 Hepatitis A Vaccines (1 of 2 - Risk 2-dose series) 08/10/2007 Cervical Cancer Screening: Pap Smear 2009 Pneumococcal Vaccine: Pediatrics (0 to 5 Years) and At-Risk Patients (6 to 49 Years) (2 of 2 - PCV) 06/06/2019 06/05/2018, 04/25/2017 HIV Screening 03/05/2022 Hepatitis C Screening 03/05/2022 Social Influencers of Health Screening 03/05/2022 Cholesterol Screening (Lipid Panel) 01/18/2023 01/18/2018 Depression Screening 04/02/2024 COVID-19 Vaccine (3 - season) 2024 04/27/2020, 04/08/2020 Influenza Vaccine (#1) 2024 2, 01/01/2020, 12/01/2017, Additional history exists Colorectal Cancer Screening: Colonoscopy 01/15/2030 01/16/2020 DTaP,Tdap,and Td Vaccines (5 - Td or Tdap) 12/07/2031 12/06/2021, 06/05/2018, 07/10/2007, Additional history exists RSV Immunization Adult Patients (1 - 1-dose 75+ series) 08/10/2063 Varicella Vaccines Aged Out 02/25/1997 No longer eligible based on patient's age to complete this topic MMR Vaccines Completed 08/08/1999, 11/21/1989 Meningococcal ACWY Vaccine Completed 03/16/2006 Hepatitis B Vaccines Completed 01/31/2012, 09/06/2011, 07/31/2011, Additional history exists HIB Vaccines Aged Out No longer eligi ble based on patient's age to complete this topic IPV Vaccines Aged Out No longer eligi ble based on patient's age to complete this topic Meningococcal B Vaccine Aged Out No l onger eligible based on patient's age to complete this topic RSV Immunization Patients Under 20 months Aged Out No longer eligible based on patient's age to complete this topic Procedures Procedure Name Priority Date/Time Associated Diagnosis Comments COLONOSCOPY Routine 01/16/2020 LIPID PANEL Routine 01/18/2018 from Last 3 Months or Most Recently Relevant to Health Maintenance Results * Colonoscopy (01/16/2020) Colonoscopy no interpreta tion,abstr acted Anatomical Region Laterality Modality Other us Historical Provider MD HEALTH MAINTENANCE Final Result * Lipid panel (01/18/2018) LDL/HDL Ratio 3 0 - 4 Triglycerides 135 0 - 150 mg/dL Cholesterol 152 0 - 200 mg/dL HDL 46 >=40 mg/dL LDL Cholesterol 79 0 - 100 mg/dL Blood Venous blood specimen / Unknown us Historical Provider LAB BLOOD ORDERABLES Diane l Result from Last 3 Months or Most Recently Relevant to Health Maintenance Insurance [facility] Care Teams Hotel Night Auditor Relationship Specialty Start Date End Date Nanci Melendez MD [address] [place] [address] PCP - General Internal Medicine 03/18/19
--- OUTSIDE RECORDS SUMMARY | 2025-03-10 21:48 | XMS_ITS | Data Portability ---
Author Organization [place] [facility] Address [address] [place] [phone] Care Team Providers Care Subsurface Augmentee Elint Operator Name Role Phone GRICEL YUN Primary Care [...] Address Organization Details Recorded Time Gastroparesis syndrome [id number] Active 2023 Adam Muir MD [address] [facility], [place], [address] , [facility] 13:44:01 Problem Notes None recorded. Procedures Surgical History Date Name Laterality Status Provider Name and Address Organization Details Recorded Time Gallbladder Surgery completed Meredith Robbins [place] [facility] 01/16/2024 13:32:56 laparoscopic removal of gastric stimulation electrodes of lesser curvature of stomach completed Meredith Robbins [place] [facility] 01/16/2024 13:34:01 excision of uterine polyp completed Meredith Robbins [place] [facility] 01/16/2024 13:34:41 [...] Address Organization Details Last Updated DateTime 01/16/2024 567508.9 g 42.3 kg/m2 165.1 cm 98/70 mm[Hg] Meredith Robbins [place] - [facility] 01/16/2024 13:31:46 Social History Question Answer Notes LastModified by Organizat ion Details LastModified Time Tobacco Smoking Status Never Smoker Meredith rowland [place] - [facility] 01/16/2024 13:26:56 If You Are , What Was Your Level Of Alcohol Consumption Prior To ? None [email or web address] Information not available 01/16/2024 Are You Blind Or Do You Have Difficulty Seeing? No [email or web address] Information not available 01/16/2024 What Is Your Level Of Caffeine Consumption? Moderate Information not available 01/16/2024 How Many Times In The Past Year Have You Used An Illegal Drug Or Used A Prescription Medication For Nonmedical Reasons? 0 [email or web address] Information not available 01/16/2024 Has Tobacco Cessation Counseling Been Provided? No Information not available 01/16/2024 Sex: Unknown Functional Status Question Answer Note LastModified by Organizat ion Details LastModified Time Do you use any illicit or recreational drugs? No [email or web address] Information not available 01/16/2024 Do you or have you ever used any other forms of tobacco or nicotine? No Information not available 01/16/2024 What is your level of alcohol consumption? None Information not available 01/16/2024 Are you able to care for yourself independently? Yes [email or web address] Information not available 01/16/2024 Do you or have you ever used any nicotine-free cigarettes, vape, or chewing tobacco? No [email or web address] Information not available 01/16/2024 Mental Status None recorded. Family History Nothing Reported. Medical History Condition Response Coronary Artery Disease N Gout N Kidney Stones N Hyperthyroidism N Depression N COPD N Hypothyroidism N Anemia N Deep Vein Thrombosis N Diabetes N Anxiety Disorder N Autoimmune disease N Bleeding Disorder N Seizures/Epilepsy N Arthritis N Tuberculosis N Cancer N Stroke N [...] Note 4 MD Arianne Edmond Office [address] [facility] [address] [place] [address] 01/16/2024 13:09:25 01/16/2024 13:46:40 Gastroparesis syndrome [id number] K31.84 Ms. Acuna is a 33 year old woman with a long history of gastropare sis. She had a gastric stimulator placed in 2016 at [facility] and her generator was replaced in 2022. [...] up with the GI motility team at [facility] later this month and she is interested [...] ID Guarantor Name 01/16/2024 1 [employer] [id number] Mookie Acuna [id number] Joann Millen Notes Date Note Type Note Provider Name and Address Organization Details Recorded Time 01/16/2024 text/html Ms. Acuna is a 33 year old woman with a long history of gastroparesis. She had a gastric stimulator placed in 2016 at [facility] and her generator was replaced in 2022. She continues to have intermittent bloating, but she has not had nausea or vomiting. She has significant reflux and intermittent aspiration since she has been off of Dexilant. She currently takes famotidine and lansoprazole. Adam Muir MD [address] [facility], [place], [address], [facility] 01/16/2024 13:59:33 OBGyn Episode No OBEpisode recorded.
--- OUTSIDE RECORDS SUMMARY | 2025-03-10 21:48 | XMS_ITS ---
[facility] Unknown Results Test Name/Text Value Interpretation Date Range Source LAB AP CLINICAL INFORMATION Infertility, recurrent chronic endometritis Normal 08/24/2023 [facility] LAB AP CLINICAL INFORMATION Chronic endometritis, status post antibiotics, PCOS, infertility, progestin only pills for dysmenorrhea, check CD138, BCL6 Normal 07/25/2023 [facility] UCONNPATH LAB AP GROSS DESCRIPTION Prosector: PATRICK MCCAULEY(ASCP). The specimen container is labeled with the patient's name and date of . Received in formalin labeled endometrial biopsy is a 1.5 x 1.5 x 0.3 cm aggregate of soft, maroon tissue fragments which is submitted in toto labeled A1. Normal 07/25/2023 [facility] LAB AP SPECIAL STAINS On immunostaining with antibody to CD138 and on hematoxylin and eosin stained slides, plasma cells are seen. Staining with antibody to BCL6 shows 80% of the endometrial epithelium with +2 staining for an HSCORE of 2.4 (positive, low). Normal 07/25/2023 [facility] History of Medication Use Medication Directions Dispensed Refills Start Date End Date Stat meloxicam 15 mg tablet Take 1 tablet every day by oral route. 03/06/2023 active acetaminophen 300 mg-codeine 30 mg tablet TAKE 1 TABLET BY MOUTH EVERY 6 HOURS NEEDED FOR PAIN 03/06/20 23 completed famotidine 03/06/20 active medroxyprogesterone 10 mg tablet TAKE 1 TABLET BY MOUTH DAILY FOR 10 DAYS 03/06/20 23 completed oxycodone 5 mg tablet TAKE 1 TABLET BY MOUTH EVERY 6 HOURS NEEDED FOR PAIN 03/06/20 23 completed penicillin V potassium 500 mg tablet TAKE 1 TABLET 4 TIMES A DAY UNTIL FINISHED 03/06/20 23 completed prednisone 20 mg tablet PLEASE SEE ATTACHED FOR DETAILED DIRECTIONS 03/06/20 completed sucralfate 100 mg/mL oral suspension TAKE 10 ML BY MOUTH THREE TIMES DAILY BEFORE MEAL(S) AND AT BEDTIME FOR 14 DAYS 03/06/20 23 completed acetaminophen 325 mg tablet TAKE 2 TABLETS BY MOUTH EVERY 6 HOURS NEEDED FOR MILD PAIN active albuterol sulfate 2.5 mg/3 mL (0.083 %) solution for nebulization INHALE 1 VIAL VIA NEBULIZER EVERY 6 HOURS NEEDED FOR WHEEZING active albuterol sulfate HFA 90 mcg/actuation aerosol inhaler INHALE 2 PUFFS EVERY 4 HOURS NEEDED FOR WHEEZING active Dexilant active dexlansoprazole 60 mg capsule,biphase delayed release TAKE 1 BY MOUTH ONCE DAILY TAKE ON EMPTY STOMACH, WAIT 30 MINUTES AND THEN EAT TO ACTIVATE MEDICATION active fluticasone 500 mcg-salmeterol 50 mcg/dose blistr powdr for inhalation INHALE 1 DOSE BY MOUTH TWICE DAILY active metformin 500 mg tablet PLEASE SEE ATTACHED FOR DETAILED DIRECTIONS active ondansetron HCl 4 mg tablet TAKE 1 TABLET BY MOUTH EVERY 8 HOURS NEEDED FOR NAUSEA AND VOMITING FOR 5 DAYS active Allergies Allergen Reaction Severity Comment Documented Date Source Statu s REGLAN [facility] Problems Problem Status Onset Date Problem Type Date of Resoluti on Source Pain of left shoulder joint active 2023-03-06 ProblemAct [facility] Infertility, female active EncounterDiagnosisAct [facility] Encounters Encounter Type Encounter Reason Primary Diagnosis Location Date Ambulatory [facility] [place] 03/06/2023 Ambulatory [facility] [place] 03/06/2023 Ambulatory [facility] [place] 03/06/2023 Ambulatory [facility] [place] 03/06/2023 Care Team Organization Name Specialty Phone Email Start Date End Da te [facility] Steven Falk MD Primary Care 02/07/202211/18
--- OUTSIDE RECORDS SUMMARY | 2025-03-10 21:48 | XMS_ITS | Data Portability ---
Author Organization [place] [facility] [place] Address [address] [place] [address] Assessment Encounter Date Assessment Date Assessment LastModified [...] more view 2022 023 [email or web address] [facility], [address], [place], [address], 3 16:50:44 Medication Orders meloxicam 15 mg tablet 2022 023 [facility]UP [id number], [id number] [place], [address], 3 16:11:46 Patient TargetsNo targets recorded. Patient Instructions Encounter Date Encounter Id Patient Instructions Last Modified By Organization Details Last Modified Time 03/06/2023 [id number] physical therapy * - Diagnosis: Left shoulder [...] Recorded Time Pain of left shoulder joint [id number] 09 Active 2022 CARMELLA LOBO PA-C [address], [facility] [place], [address] , [place] [facility] 3 16:11:07 Problem Notes None recorded. Procedures Surgical History Date Name Laterality Status Provider Name and Address Organization Details Recorded Time 04/02/19 17 cholecystectomy completed Ana Walsh [place] [facility] 03/06/2023 15:53:47 Imaging Results None recorded. Procedure Notes None recorded. Medical Equipment None Reported. Allergies Allergen ID Allergen Name Allergen Category Reaction Reaction Severity Criticality Documentation Date Start Date Code Code System Note Provider Name and Address Organization Details Recorded Time 04704 Reglan medicatio n Not available Not available Not available 03/06/2023 9230 RxNorm Ana Walsh [facility], [place] - [facility] 3 15:46:09 Medications Name Sig Start [...] Address Organization Details Last Updated DateTime 03/06/2023 465699.17 g 41.2 kg/m2 162.[address] [place] [facility], 03/06/2023 15:49:02 Social History None recorded. Functional [...] ICD10 Code Diagnosis IMO Codes Diagnosis Note [id number] CARMELLA LOBO PA-C [facility] [address] [place] [phone] 03/06/2023 15:30:54 03/06/2023 16:12:23 Pain of left shoulder joint [id number] M25.512 Health Concerns Section Related Observation LastModified by Organization Detai ls LastModified Time None Recorded Concern Status LastModified by Organization Details LastModified Time None Recorded Advance Directives Directive None Recorded Payers Insurance Date Sequence Insurance Name Policy Number Policy Morrison Covered Member ID Morrison Member ID Guarantor Name 04/02/[address] [place] [address] [id number] Joann Acuna [id number] Joann Acuna Notes Date Note Type Note [...] CARMELLA LOBO PA-C [address], [place], [address], [place] [facility] 03/06/2023 16:12:26 OBGyn Episode No OBEpisode recorded.
--- OUTSIDE RECORDS SUMMARY | 2025-03-10 21:48 | XMS_ITS | Data Portability ---
Author Organization [facility], [facility] Address [address] [address] [place] [address] Care Team Providers Care Physiatrist Name Role Phone GRICEL YUN Primary Care Provider [phone] Assessment No assessment recorded. Plan of Treatment [...] scan No observ ation record ed. dleenen [facility] [address] [facility], [place], [address], 11/28/2023 12:11:36 Result Notes None recorded. Problems Name Problem SNOMED Code Status Onset Date Resolution Date Notes Provider Name and Address Organization Details Recorded Time Idiopathic gastroparesis 541514776 Active 2023 JOSE CENTENO MD [address] [place], [address], [facility] 09:38:51 Problem Notes None recorded. Procedures Surgical History Date Name Laterality Status Provider Name and Address Organization Details Recorded Time 10/19/19 24 BLANK TEMPLATE completed JOSE CENTENO MD [address] [place], [address], [facility] 10/22/2023 21:33:23 gastric emptying study completed [facility] 10/19/2023 09:03:02 laparotomy with replacement of gastric stimulation electrodes from lesser curvature completed [facility] 10/19/19 24 09:03:42 laparoscopic cholecystectomy completed [facility] 09:03:59 ultrasonography guided transcervical radiofrequency ablation of uterine fibroid completed [facility] 10/19/2023 09:04:39 Imaging Results None recorded. Procedure Notes None recorded. Medical Equipment None Reported. Allergies Allergen ID Allergen Name Allergen Category Reaction Reaction Severity Criticality Documentation Date Start Date Code Code System Note Provider Name and Address Organization Details Recorded Time 1758350 Reglan medicatio n seizure moderate high 10/19/2023 9230 RxNorm [facility], [facility] 09:00:03 Medications Name Sig Start Date [...] Updated DateTime 10/19/2023 165.1 cm 41.6 kg/m2 116000.09 g Eleuterio Fletcher [facility] ast 10/19/2023 08:59:29 Social History Question Answer Notes LastModified by Organizat ion Details LastModified Time Tobacco Smoking Status Never Smoker Eleuterio rowland, [facility] 10/19/2023 09:02:45 If You Are , [...] History Condition Response HIV or AIDS N STROKE N DIVERTICULITIS N LUNG CANCER N DIABETES N COPD N OTHER LUNG DISEASE N HYPERTHYROIDISM N HAS PACEMAKER N BLEEDING DISORDER N aortic aneurysm N HYPOTHYROIDISM N blood transfusion N CLAUSTROPHOBIC N PANIC ATTACKS N BOWEL PROBLEMS N COLON CANCER N ULCERS N BREAST CANCER N GERD/REFLUX Y other N OSTEOPOROSIS N ARTHRITIS N HYPERCHOLESTEROLEMIA N cancer N no past medical history [...] ICD10 Code Diagnosis IMO Codes Diagnosis Note [id number] JOSE CENTENO MD _[facility] [address] [facility] [facility] [address] [place] [phone] 10/19/2023 08:46:20 10/19/2023 15:04:47 Idiopathic gastroparesis 835911233 K31.84 33F with idiopathet ic gastropare sis [...] steps - OK for telehealth given distance [id number] JOSE CENTENO MD [facility] [address] [facility] [address] [place] [phone] 11/26/2023 15:39:43 11/29/2023 14:33:15 Idiopathic gastroparesis 594134801 K31.84 33F with idiopathet ic gastropare sis [...] ID Guarantor Name 11/24/2023 1 [place] ([place]) [id number] Mookie Acuna [id number] 39 Joann Acuna Notes Date Note Type Note Provider Name and Address Organization Details Recorded Time 10/19/2023 text/html 33F presenting to establish care for gastroparesis. Unfortunately she did not bring any of her records. She reports symptoms began in 9821-6477. She initially started with heartburn and regurgitation [...] with acid taste in her mouth and [place] green/yellow fluid as well. She remains on [...] pre-op PACU nurse - Madai Sanchez in [place], [place] - 1.5 hours away GI doctor - Ruddy Mathur, Dr. Falk was previous GCSI - 29 (nausea/vomiting 6, fullness/early satiety, 15, bloating/distension 8) JOSE CENTENO MD [address] [place] [address], [phone], [facility] 10/22/2023 21:46:21 11/26/2023 text/html 33F presenting for [...] abnormalities.GES 11/22/23 - 2% remaining at 4 hours.[facility] 2015. Patient was interviewed over the phone after obtaining the consent and confirming the name and the date of .informed that insurance will be billed.Name of persons on the call: Evan location: OfficePatient location: HomeI, as the provider, have informed my patient on how they can see a provider in-person in the event of an emergency. JOSE CENTENO MD [address] [place] [address], [phone], [facility] 11/27/2023 13:30:38 OBGyn Episode No OBEpisode recorded.
--- OUTSIDE RECORDS SUMMARY | 2025-03-10 21:49 | XMS_ITS | Patient Health Record ---
Author Organization [facility] Address [address] [place] [address] Care Team Providers Care Automotive Dismantler Name Role Phone ABILIO DIEGO, GRISELDA Primary Care Provider ALICE Gao Unavailable Allergies Allergen (clinical drug ingredient) Drug/Non Drug Allergy documented on EMR Reaction Allergy Type Onset Date Status metoclopramide Reglan anaphylaxis Drug Allergy Active Reason For Referral No Information Medications Medication SIG (Take, Route, Frequency, Duration) Notes Start Date End Date Status Montelukast Sodium TABLET 1 TAB(S) ORALLY ONCE A DAY (IN THE EVENING)PRN NAME ONLY Conversion from Multum Review and pick correct strength-formulat ion from Openplay options. If intended option is not shown, discontinue and re-order from Quick Search. Active Multivitamin 1 TAB(S) ONCE A DAY NAME ONLY Conversion from Multum Review and pick correct strength-formulat ion from Openplay options. If intended option is not shown, discontinue and re-order from Quick Search. Active Dexilant 60 MG 1 TAB(S) ORAL ONCE A DAY NAME ONLY Conversion from Multum Review and pick correct strength-formulat ion from Openplay options. If intended option is not shown, discontinue and re-order from Quick Search. Active Advair Diskus 500-50 MCG/DOSE Aerosol Powder Breath Activated inhaled Twice a day Active PRO AIR 2-4 PUFFS NEEDED *Please review for potential replacement for e-prescription and drug interaction check* Active metFORMIN HCl ER 750 MG Tablet Extended Release 24 Hour 1 tab(s) orally Twice a day Not-Taking ZANTAC 150 150 MG TABLET 1 TAB(S) ORALLY 2 TIMES A DAY *Please review for potential replacement for e-prescription and drug interaction check* Active Ondansetron 8 MG Tablet Disintegrating 1 tab(s) orally 2 times a day PRN Active Lansoprazole 30 MG Capsule Delayed Release 1 cap(s) orally BID Active metFORMIN HCl ER 500 MG Tablet Extended Release 24 Hour 2 tab(s) orally once a day; Duration: 30 day(s) 05/28/2015 Not-Taking Flonase Allergy Relief 50 MCG/ACT Suspension 1 spray(s) intranasally once a day PRN Active ZyrTEC Allergy 10 MG Tablet 1 tab(s) orally once a day PRN Active Social History Tobacco Use: Social History Observation Description Date Details (start date - stop date) Never Smoker NA - NA Social History Tobacco Use: Social Info Question Answer Notes Smoking Are you a: never smoker Additional Details Category Social Info Options Details General 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, [employer]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 Past year's travels: None alcohol use: yes wine, whiskey, S eldom drug use: no Hobbies/Exercise habits: Walking Coffee/Tea/Soda: yes Ice tea Marital Status single experience no Living with fiance, getting in October Pets 1 cat 1 dog Problems Problem Type SNOMED Code ICD Code Onset Dates Problem Status W/U Status Risk Notes Problem Polycystic ovary syndrome (disorder) (593562612) Polycystic ovarian disease (256.4) Active confirmed Problem Polycystic ovary syndrome (disorder) (921168976) Polycystic ovarian disease (E28.2) Active confirmed Plan Of Treatment No Information Insurance Providers Payer Name Payer Address Payer Phone Subscriber Number Group Number Insured Name Patient Relationship to Insured Coverage Start Date Coverage End Date [facility] [address] [place] [address] [phone] [id number] DERRELL RITCHIE Spouse - patient is the spouse of the insured Medical (General) History Medical History History ICD Code Polycystic Ovarian Syndrome GERD Asthma Gastritis Gastroparesis, idiopathic Surgical History Surgery Date(Month/Year) Gallbladder 04/2016 Gastric Neurostimulator 08/2016 Hospitalization History Reason Date(Month/Year) Acute Bronchitis/[facility] ER 06/26/13
--- OUTSIDE RECORDS SUMMARY | 2025-03-10 21:50 | XMS_ITS | Clinical Summary ---
Author Organization [facility] Address [address] [place] [address] Care Team Providers Care Mobile Security Specialist Name Role Phone Unavailable Primary Care Provider Unavailabl e Social History Tobacco Use Types Packs/Day Years Used Date Smoking Tobacco: Never Assessed Comments Unknown Sex and Gender Information Value Date Recorded Sex Assigned at Not on file Legal Sex Female 9:38 AM EDT Gender Identity Not on file Sexual Orientation Not on file Plan of Treatment Not on file [place] [address] [place] [address] PPO
--- OUTSIDE RECORDS SUMMARY | 2025-03-10 21:50 | XMS_ITS | Patient Health Record ---
Author Organization [facility] Address [address] [place] [address] Care Team Providers Care Shower Attendant Name Role Phone AlKarol abrahamberly Primary Care Provider Luis Richmond Unavailable [phone] Allergies Allergen (clinical drug ingredient) Drug/Non Drug Allergy documented on EMR Reaction Allergy Type Onset Date Status metoclopramide Reglan facial spasms Drug Allergy Active Reason For Referral No Information Medications Medication SIG (Take, Route, Frequency, Duration) Notes Start Date End Date Status Ipratropium-Albuterol 0.5-2.5 (3) MG/3ML USE 3 ML IN NEBULIZER 4 TIMES DAILY NEEDED FOR SHORTNESS OF BREATH Inhalation; Duration: 15 Not-Taking Famotidine Active metroNIDAZOLE 500 MG TAKE 1 TABLET BY MO UTH THREE TIMES DAILY WITH FOOD FOR 7 DAYS Oral; Duration: 7 Not-Taking Active Vitamin D Active Albuterol Sulfate HFA Not-Taking Fluticasone-Salmeterol Not-Taking Dexilant Active Diclofenac Sodium No t-Taking ProAir HFA 108 (90 Base) MCG/ACT INHALE 2 PUFFS BY MOUTH 4 TIMES DAILY NEEDED FOR WHEEZING Inhalation; Duration: 25 Active Albuterol Sulfate (2.5 MG/3ML) 0.083% USE 1 VIAL IN NEBULIZER EVERY 6 HOURS NEEDED FOR WHEEZING Inhalation; Duration: 13 Not-Taking Ondansetron HCl 4 MG TAKE 1 TABLET BY MO UTH EVERY 8 HOURS NEEDED FOR NAUSEA AND VOMITING FOR 5 DAYS Oral; Duration: 5 Active predniSONE 10 MG TAKE 4 TABLETS BY MOUTH FOR 3 DAYS THEN 3 TABLETS BY MOUTH FOR 3 DAYS THEN 2 TABLETS BY MOUTH FOR 3 DAYS THEN 1 TABLET BY MOUTH FOR 3 DAYS Oral; Duration: 12 Not-Taking Advair Diskus 500-50 MCG/DOSE as directed Inhalation Activ e Amoxicillin-Pot Clavulanate 875-125 MG TAKE 1 TABLET BY MOUTH TWICE DAILY FOR 7 DAYS Oral; Duration: 7 Not-Taking Benadryl Active Cholestyramine 4 GM DISSOLVE & TAKE 1 PACKET BY MOUTH THREE TIMES DAILY WITH MEALS Oral; Duration: 30 Not-Taking metFORMIN HCl 500 MG 1 tablet with a ian l Orally Once a day; Duration: 30 day(s) Active Immunizations Vaccine Route Administration [...] Status Risk Notes Problem Plantar fascial fibromatosis (90821534) Plantar fascial fibromatosis (M72.2) Active confirmed Plan Of Treatment Pending Test Test Name Order Date ,C0156-NEP TENDON SHEATH/LIGAMENT 0 08/11/2020 Insurance Providers Payer Name Payer Address Payer Phone Subscriber Number Group Number Insured Name Patient Relationship to Insured Coverage Start Date Coverage End Date [facility] [address] [place] [address] [id number] Mookie Acuna Spouse - patient is the spouse of the insured Medical (General) History Medical History History ICD Code asthma Gall bladder problems polycystic ovary syndrom - PCOS Gastroparesis Surgical History Surgery Date(Month/Year) Gastric Stimulator 2017 cholecystectomy 2017
--- OUTSIDE RECORDS SUMMARY | 2025-03-10 21:51 | XMS_ITS | Patient Health Record ---
Author Organization [facility] Address [address], [place] [address] Care Team Providers Care Primary Teaching Assistant Name Role Phone Nanci Melendez Primary Care Provider Dr. Adam Ford Unavailable [phone] Migration, Provider Unavailable Unavailable Reason For Referral No Information Medications Medication SIG (Take, Route, Frequency, Duration) Notes Start Date End Date Status Famotidine 40 MG Tablet Oral 01/16/2024 Active Lansoprazole *Pick strength-f orm from [employer] for eRX* 01/16/2024 Active Ondansetron HCl 4 MG Tablet Oral 01/16/2024 Active metFORMIN HCl 500 MG Tablet Oral 01/16/2024 Active Norethindrone Acetate 5 MG Tablet Oral 01/16/2024 Active ProAir HFA 108 (90 Base) MCG/ACT Aerosol Solution Inhalation *Reorder from [employer] for eRx and Interaction Alerts* 01/16/2024 Active WIXELA INHUB 500 MCG-50 MCG/DOSE POWDER FOR INHALATION *Reorder from [employer] for eRx and Interaction Alerts* 01/16/2024 Active Social History Social History Additional Details Category Social Info Options Details Migrated Social History Migrated Social History Alcohol Intake: None 01/16/2024,Tobacco Years: Never smoker 01/16/2024 Problems Problem Type SNOMED Code ICD Code Onset Dates Problem Status W/U Status Risk Notes Problem Gastroparesis (121281252) Gastroparesis (K31.84) 01/16/20 24 Active confirmed Encounters Encounter Location Date Provider Diagnosis [facility] [address] [place] [address] 11/15/2024 Provider Migration [facility] [address] [place] [address] 11/16/2024 Provider Migration Plan Of Treatment No Information Insurance Providers Payer Name Payer Address Payer Phone Subscriber Number Group Number Insured Name Patient Relationship to Insured Coverage Start Date Coverage End Date [employer] [address] [place] [address] [id number] DERRELL RITCHIE Spouse - patient is the spouse of the insured Medical (General) History Surgical History Surgery Date(Month/Year) Excision of uterine polyp (536723746) Gallbladder surgery Laparoscopic removal of jake stephanie stimulation electrodes of lesser curvature of stomach (716801986)
== END 2025-03-10 16:27 | disposition home or self-care (01) ==
LOC: HO.HSMS 15:22
PROVIDERS: PCP Internal Medicine; Visit Provider Physician Assistant Medical
DX: G47.19 Other hypersomnia (principal)
CPT/HCPCS: 99204